=== PATIENT | female | born 1975 | race Two or more races ===

== ENCOUNTER 2016-10-08 15:35 | Emergency (ER) | payer BC ==
[2016-10-08 16:00] VITALS: BP 112/82; TEMP 98.7; BMI 28.2
--- NOTE | 2016-10-08 16:33 | PDOC ---
History of Present Illness - General Chief Complaint: Pain Stated Complaint: CHEST PAIN, S/P SURGERY Time Seen by Provider: 10/08/16 16:04 - History of Present Illness Initial Comments: 10/08/16 16:29 41-year-old female with a past medical history of asthma, GERD, gastric sleeve, rheumatoid arthritis, and anemia On 09/29/16, she had an abdominoplasty, liposuction, and bilateral breast lift done at [facility] She states that since the surgery, she's had some chest pain and shortness of breath, and she was seen in the [facility] emergency department on 10/01/16, and had a CTA of the chest which was reportedly negative. She was going to be admitted to [facility], but was unhappy with her care on that day, and signed out AMA She states that since the surgery she is having constant chest pain, going down her left arm, shortness of breath, palpitations, "racing heart", and dyspnea on exertion She denies any leg swelling, or fevers and chills She does admit to a cough with some occasional clear sputum She is also complaining of some difficulty swallowing since the surgery, with painful swallowing She states that she is only able to swallow liquids, and unable to swallow solids She states that she is not eating or drinking Patient was seen in the emergency department here on 10/01/16, after signing out AGAINST MEDICAL ADVICE from [facility], and again on 10/03-to10/04/16, when her lab work showed progressive anemia, most recently with a hemoglobin of 8, and an elevated d-dimer On 10/04/16, here, she got a CTA of the chest (her second CTA of the chest since the surgery, the first at [facility]) CTA of the chest done on 10/04/16 Impression "There is no gross evidence of pulmonary embolus in the main pulmonary artery and its proximal branches bilaterally There is bi-basilar consolidation/atelectasis in the dependent portion of the lower lobes, rule out pneumonia Status post gastric sleeve surgery with a small to moderate size hiatal hernia present, and suggestion of thickening of the mid and distal esophageal wall" Patient was discharged home from the emergency department after feeling better after IV hydration She returns today with continuation and worsening of her symptoms She denies any fevers or chills, her surgical drains were removed, and she denies any discharge or drainage from the surgical sites She denies any calf pain or leg swelling She denies any other complaints at this time, and the remainder of the review of systems is negative Past History - Past Medical History Allergies/Adverse Reactions: Allergies Allergy/AdvReac Type Severity Reaction Status Date / Time shellfish derived Allergy Intermediate Verified 10/03/16 23:21 bupropion HCl Allergy Verified 10/03/16 23:21 [From Wellbutrin] Home Medications: Ambulatory Orders Zolpidem Tartrate [Ambien Cr] 12.5 mg PO HS 04/01/16 Sulfasalazine 100 mg PO BID 07/08/16 Cephalexin [Keflex] 500 mg PO Q6H 10/01/16 Ferrous Sulfate 325 mg PO BID 10/01/16 Hydrocodone 10-325 1 tab PO TID PRN 10/01/16 Omeprazole 20 mg PO DAILY 10/08/16 Omeprazole 20 mg PO DAILY #30 capsule. 10/08/16 Anemia: No Asthma: Yes Cancer: No Cardiac Disorders: No CVA: No COPD: No CHF: No Dementia: No Diabetes: No GI Disorders: Yes (GERD) Disorders: No HTN: No Hypercholesterolemia: No Liver Disease: No Psychiatric Problems: Yes (DEPRESSION) Seizures: No Thyroid Disease: No - Surgical History Abdominal Surgery: Yes (VERTICAL SLEEVE GASTRECTOMY, ABDOMINOPLASTY, LIPOSUCTION ) Appendectomy: No Cardiac Surgery: No Cholecystectomy: No Lung Surgery: No Neurologic Surgery: No Orthopedic Surgery: Yes - Psycho/Social/Smoking Cessation Hx Anxiety: No Suicidal Ideation: No Smoking Status: No Smoking History: Current some day smoker Years of Tobacco Use: 24 Have you smoked in the past 12 months: No Number of Cigarettes Smoked Daily: 0 Information on smoking cessation initiated: Yes 'Breaking Loose' booklet given: 07/16/16 Hx Alcohol Use: No Drug/Substance Use Hx: No Substance Use Type: None Review of Systems - Review of Systems Able to Perform ROS?: Yes Comments:: 10/08/16 16:41 12 point review of systems is as per history of present illness and otherwise negative *Physical Exam - Vital Signs Last Vital Signs Temp Pulse Resp BP Pulse Ox 98.7 F 120 H 20 112/82 100 10/08/16 15:37 10/08/16 15:37 10/08/16 15:37 10/08/16 15:37 10/08/16 15:37 - Physical Exam Comments: 10/08/16 16:41 Physical exam Last Vital Signs Temp Pulse Resp BP Pulse Ox 98.7 F 120 H 20 112/82 100 10/08/16 15:37 10/08/16 15:37 10/08/16 15:37 10/08/16 15:37 10/08/16 15:37 GENERAL: The patient is awake, alert, and fully oriented, and in no apparent distress. HEAD: Normal with no signs of trauma. EYES: Sclera anicteric ENT: Mucous membranes slightly dry NECK: Normal range of motion, supple over 11 segs RBC were negative and reactive LUNGS: Breath sounds equal, clear to auscultation bilaterally. No wheezes, and no crackles. HEART: Regular rate and rhythm, normal S1 and S2 without murmur, rub or gallop. ABDOMEN: Soft, nontender, normoactive bowel sounds. No guarding, no rebound. No masses appreciated. SKIN: The surgical sites on the breast bilaterally and abdominal wall or clean and healing There is no evidence of infection or drainage of the surgical sites EXTREMITIES: Normal range of motion, no edema. No clubbing or cyanosis. No cords, erythema, or tenderness. There is no calf tenderness or swelling, and there is no thigh tenderness or swelling NEUROLOGICAL: Cranial nerves II through XII grossly intact. Normal speech, normal gait. PSYCH: Normal mood, normal affect. SKIN: Warm, Dry, ED Treatment Course - LABORATORY CBC & Chemistry Diagram: 10/08/16 16:50 10/08/16 16:50 - RADIOLOGY Radiology Studies Ordered: Category Date Time Status CHEST PA & LAT [RAD] Stat Radiology 10/08/16 16:26 Ordered Medical Decision Making - Medical Decision Making 10/08/16 16:43 Patient with a complex past medical history as noted, has had this symptom complex since her surgery on 09/29/16 She has had 2 CTAs, one at [facility], and one here, which have been negative for pulmonary emboli, but positive for possible pneumonia versus atelectasis and positive for esophageal thickening She was also noted to be increasingly anemic over her past 2 visits here, with the most recent hemoglobin being 8 10/08/16 18:39 Chest x-ray Linear densities in the mid left lung pham are noted which appear improved when compared to the prior study, consistent with improving atelectatic changes There are also improving atelectatic changes of the lung bases with improved aeration No focal consolidation is seen The cardiomediastinal windows are within normal limits CBC is consistent with improved H&H, with a hemoglobin of 10.7 and a hematocrit of 33 at this time The CMP is significant for a potassium of 5.7 on a hemolyzed specimen First set of cardiac enzymes negative Laboratory Results - last 24 hr 10/08/16 10/08/16 10/08/16 16:50 16:50 16:50 WBC 8.6 RBC 3.37 L Hgb 10.7 D Hct 33.3 D MCV 99.0 H MCHC 32.0 RDW 14.7 D Plt Count 504 H D MPV 7.1 L D Sodium 131 L Potassium 5.7 H D Chloride 99 Carbon Dioxide 24 Anion Gap 8 BUN 14 D Creatinine 0.9 D Creat Clearance w eGFR > 60 Random Glucose 125 H Calcium 8.5 Magnesium 2.3 Total Bilirubin 1.9 H D AST 79 H D ALT 26 D Alkaline Phosphatase 64 Creatine Kinase 58 Troponin I < 0.03 L Total Protein 6.4 Albumin 3.3 L 10/08/16 18:56 We'll try 1 L of normal saline, and IV Protonix Patient's chest x-ray and lab work or improved from her prior 10/08/16 19:15 Improving labwork, improving x-rays (K 5.7 - lab reported hemolyzed specimen) Will give patient 1 L of IV normal saline, and 40 mg of Protonix IV, and reevaluate SIGN OUT Case discussed in detail with oncoming Emergency Physician including history, physical exam and ancillary studies. Oncoming Emergency Physician has assumed care for the patient and will complete the evaluation and treatment. Transfer of care to Dr. Madsen at 7:15 awaiting above *DC/Admit/Observation/Transfer Diagnosis at time of Disposition: GERD with esophagitis - Discharge Dispostion Disposition: HOME Condition at time of disposition: Good - Prescriptions Prescriptions: Omeprazole 20 mg PO DAILY #30 capsule.dr - Referrals Referrals: Marvin Villa [Primary Care Provider] - - Patient Instructions Additional Instructions: Take omeprazole 1 tablet a day for the epigastric discomfort and difficulty swallowing. Your difficulty swallowing is most likely irritation of your esophagus secondary to your reflex and the abdominal and breast binders. Continue to take your iron as prescribed it may make you constipated so if you are not having normal bowel movements at some fiber or a [id number] laxative which is milk of magnesia. It is important that you follow-up with your primary care doctor. Return to the emergency department immediately with ANY new, persistent or worsening symptoms. Continue any medications as previously prescribed by your physician. You should follow up with your primary doctor as soon as possible regarding today's emergency department visit. . Please make sure your doctor reviews the results of your emergency evaluation. Thank you for coming to the Emergency Department today for your care. It was a pleasure to see you today. Please note that your evaluation is INCOMPLETE until you follow-up with your doctor.
[2016-10-08 17:13] LABS: MCH 31.7 pg (25.7-33.7); MEAN PLT VOLUME 7.1 fl (7.5-11.1); PLATELET COUNT 504 K/MM3 (134-434); RDW 14.7 % (11.6-15.6); WHITE BLOOD COUNT 8.6 K/mm3 (4.0-10.0)
[2016-10-08 17:27] LABS: ALBUMIN 3.3 g/dl (3.5-5.0); ALK PHOS 64 U/L (32-92); ANION GAP 8 (8-16); BILIRUBIN,TOTAL 1.9 mg/dl (0.2-1.0); CALCIUM 8.5 mg/dl (8.4-10.2); CO2 24 mmol/L (22-28); CREATININE 0.9 mg/dl (0.6-1.3); GLUCOSE,RANDOM 125 mg/dl (74-106); MAGNESIUM 2.3 mg/dL (1.8-2.4); SGOT/AST 79 U/L (10-42); SGPT/ALT 26 U/L (10-40); TOT PROT 6.4 g/dl (6.4-8.3)
[2016-10-08 17:29] LABS: CPK(DFH) 58 IU/L (26-140)
[2016-10-08 17:38] LABS: TROPONIN I (DFP) < 0.03 ng/ml (0.03-0.50)
[2016-10-08] MEDS ORDERED: PANTOPRAZOLE SODIUM 40 MG VIAL ONE (18:55)
[2016-10-08] MEDS ORDERED: PANTOPRAZOLE SODIUM 40 MG in SODIUM CHLORIDE 100 ML IVPB ONE (18:55)
[2016-10-08] MEDS ORDERED: SODIUM CHLORIDE 1,000 ML IV SCH (19:00)
--- NOTE | 2016-10-08 19:43 | PDOC ---
*Physical Exam - Vital Signs Last Vital Signs Temp Pulse Resp BP Pulse Ox 98.7 F 120 H 20 112/82 100 10/08/16 15:37 10/08/16 15:37 10/08/16 15:37 10/08/16 15:37 10/08/16 15:37 ED Treatment Course - LABORATORY CBC & Chemistry Diagram: 10/08/16 16:50 10/08/16 16:50 - ADDITIONAL ORDERS Additional order review: Laboratory Results 10/08/16 10/08/16 16:50 16:50 Sodium 131 L Potassium 5.7 H D Chloride 99 Carbon Dioxide 24 Anion Gap 8 BUN 14 D Creatinine 0.9 D Creat Clearance w eGFR > 60 Random Glucose 125 H Calcium 8.5 Magnesium 2.3 Total Bilirubin 1.9 H D AST 79 H D ALT 26 D Alkaline Phosphatase 64 Creatine Kinase 58 Troponin I < 0.03 L Total Protein 6.4 Albumin 3.3 L 10/08/16 16:50 RBC 3.37 L MCV 99.0 H MCHC 32.0 RDW 14.7 D MPV 7.1 L D - Medications Given in the ED: ED Medications Discontinued Medications Generic Name Dose Route Start Last Admin Trade Name Freq PRN Reason Stop Dose Admin Pantoprazole Sodium 40 mg/ 100 mls @ 200 mls/hr 10/08/16 18:55 10/08/16 19:00 Sodium Chloride IVPB 10/08/16 19:24 200 mls/hr ONCE ONE Administration Progress Note - Progress Note Progress Note: This is a 41-year-old female who is status post abdominoplasty as well as bilateral breast surgery. Care of this patient was transferred to [place] from Dr. Fernandes at 1900 hrs. Patient has had several visits for shortness of breath and chest pain. Patient has had 2 CT angios of the chest to rule out PE both of which were negative for PE. The last one was approximately 4 days ago. Patient had a chest x-ray that shows atelectasis and questionable infiltrate however repeat chest x-ray today is improved and patient does not have a elevated white count left shift or fever. Patient's shortness of breath is most likely secondary to discomfort as a result of her surgery and also her breast and abdominal binder. Patient is being hydrated and given Protonix for her difficulty swallowing. Patient does have a history of gastritis and gastroesophageal reflex with the additional pressure on the abdomen and breasts most likely she is getting some reflux esophagitis as a result. Post IV hydration patient will be discharged with omeprazole prescription and follow-up with her primary care doctor. *DC/Admit/Observation/Transfer Diagnosis at time of Disposition: GERD with esophagitis - Discharge Dispostion Disposition: HOME Condition at time of disposition: Good Admit: No - Patient Instructions Additional Instructions: Take omeprazole 1 tablet a day for the epigastric discomfort and difficulty swallowing. Your difficulty swallowing is most likely irritation of your esophagus secondary to your reflex and the abdominal and breast binders. Continue to take your iron as prescribed it may make you constipated so if you are not having normal bowel movements at some fiber or a [id number] laxative which is milk of magnesia. It is important that you follow-up with your primary care doctor. Return to the emergency department immediately with ANY new, persistent or worsening symptoms. Continue any medications as previously prescribed by your physician. You should follow up with your primary doctor as soon as possible regarding today's emergency department visit. . Please make sure your doctor reviews the results of your emergency evaluation. Thank you for coming to the Emergency Department today for your care. It was a pleasure to see you today. Please note that your evaluation is INCOMPLETE until you follow-up with your doctor.
[2016-10-08 19:53] VITALS: PULSE 98
--- NOTE | 2016-10-09 12:42 | EKG ---
Test Reason : Blood Pressure : / mmHG Vent. Rate : 114 BPM Atrial Rate : 114 BPM P-R Int : 130 ms QRS Dur : 084 ms QT Int : 352 ms P-R-T Axes : 062 006 041 degrees QTc Int : 485 ms SINUS TACHYCARDIA NONSPECIFIC ST ABNORMALITY WHEN COMPARED WITH ECG OF 04-OCT-2016 01:21, NO SIGNIFICANT CHANGE WAS FOUND Confirmed by ELLA SANTACRUZ MD ([id number]) on 10/09/2016 12:41:57 PM Referred By: DR CRAWFORD Confirmed By:ELLA SANTACRUZ MD
== END 2016-10-08 20:03 | disposition home or self-care (01) ==
LOC: FER 15:35
PROC: 3E033GC Introduction of Other Therapeutic Substance into Peripheral Vein, Percutaneous Approach (ICD-10-PCS; principal; 2016-10-08)
DX: K21.0 Gastro-esophageal reflux disease with esophagitis (principal); Z98.84 Bariatric surgery status; Z98.890 Other specified postprocedural states; F17.210 Nicotine dependence, cigarettes, uncomplicated; J45.909 Unspecified asthma, uncomplicated; F32.9 Major depressive disorder, single episode, unspecified
CPT/HCPCS: 36415; 71020-TC; 80053; 82550; 83735; 84484; 85027; 93005; 99283-25

== ENCOUNTER 2017-03-10 18:12 | Emergency (ER) | payer BC, OTHER ==
[2017-03-10] MEDS ORDERED: PANTOPRAZOLE 40 MG TABLET (FP) PO ONE (18:30)
[2017-03-10] MEDS ORDERED: HYOSCYAMINE SULFATE 0.125 MG *ODT PO ONE ×2 (18:31→19:05)
[2017-03-10 18:32] VITALS: BP 128/93; TEMP 98.3; BMI 30.7
[2017-03-10 18:44] VITALS: PULSE 100
--- NOTE | 2017-03-10 18:45 | PDOC ---
History of Present Illness <Willy Caceres - Last Filed: 03/10/17 18:40> - History of Present Illness Initial Comments: 03/10/17 18:59 Patient is a 42 year old female with significant medical hx of asthma, HLD, and GERD who is presenting to the ED with worsening acid reflux since today. The patient states shes had acid reflux for the past 18 years but it has been worsening today. She complains of epigastric discomfort that she describes as "burning" and sputum production whenever she belches. The patient also reports two episodes of nausea and vomiting today. Patient reports taking pepcid, mylanta and omeprazole today for her symptoms which have not provided relief. The patient states that she is prescribed omeprazole but does not take it as directed; she mostly takes it whenever she feels symptomatic. Surgical Hx: Vertical sleeve gastrectomy, tummy tuck, breast lift, two right knee surgeries, two left knee surgeries, left shoulder surgery, cyst removal Social Hx: Occasional alcohol use, denies tobacco use Allergies: Bupropion HCl, shellfish <Whit Martin - Last Filed: 03/10/17 19:12> - General Chief Complaint: Pain, Acute Stated Complaint: ABDOMINAL PAIN Time Seen by Provider: 03/10/17 18:17 Past History - Past Medical History Anemia: No Asthma: Yes Cancer: No Cardiac Disorders: No CVA: No COPD: No CHF: No Dementia: No Diabetes: No GI Disorders: Yes (GERD) Disorders: No HTN: No Hypercholesterolemia: No Liver Disease: No Psychiatric Problems: Yes (DEPRESSION) Seizures: No Thyroid Disease: No Other medical history: RHEUMATOID ARTHRITIS - Surgical History Abdominal Surgery: Yes (VERTICAL SLEEVE GASTRECTOMY, ABDOMINOPLASTY, LIPOSUCTION ) Appendectomy: No Cardiac Surgery: No Cholecystectomy: No Lung Surgery: No Neurologic Surgery: No Orthopedic Surgery: Yes - Psycho/Social/Smoking Cessation Hx Anxiety: No Suicidal Ideation: No Smoking Status: No Smoking History: Former smoker Years of Tobacco Use: 24 Have you smoked in the past 12 months: No Number of Cigarettes Smoked Daily: 0 Information on smoking cessation initiated: No 'Breaking Loose' booklet given: 07/16/16 Hx Alcohol Use: Yes Drug/Substance Use Hx: No Substance Use Type: None, Alcohol <Willy Caceres - Last Filed: 03/10/17 18:40> <Whit Martin - Last Filed: 03/10/17 19:12> - Past Medical History Allergies/Adverse Reactions: Allergies Allergy/AdvReac Type Severity Reaction Status Date / Time shellfish derived Allergy Intermediate Verified 03/10/17 18:14 bupropion HCl Allergy Rash Verified 03/10/17 18:14 [From Wellbutrin] Home Medications: Ambulatory Orders Zolpidem Tartrate [Ambien Cr] 10 mg PO HS 04/01/16 Clonazepam [KlonoPIN] 0.5 mg PO DAILY 03/10/17 Clonidine HCl 0.1 mg PO BID 03/10/17 Hydrocodone/Acetaminophen [Lortab 10-325 mg Tablet] 1 each PO PRN PRN 03/10/17 Pantoprazole Sodium [Protonix] 40 mg PO DAILY #20 tablet. 03/10/17 Sertraline HCl [Zoloft] 100 mg PO DAILY 03/10/17 Review of Systems - Review of Systems Comments:: 03/10/17 19:08 CONSTITUTIONAL: Absent: fever, chills, diaphoresis, generalized weakness, malaise, loss of appetite HEENT: Absent: rhinorrhea, nasal congestion, throat pain, throat swelling, difficulty swallowing, mouth swelling, ear pain, eye pain, visual changes CARDIOVASCULAR: Absent: chest pain, syncope, palpitations, irregular heart rate, lightheadedness , peripheral edema RESPIRATORY: Absent: cough, shortness of breath, dyspnea with exertion, orthopnea, wheezing, stridor, hemoptysis GASTROINTESTINAL: Present: epigastric discomfort, nausea, vomiting Absent: abdominal distension, diarrhea, constipation, melena, hematochezia GENITOURINARY: Absent: dysuria, frequency, urgency, hesitancy, hematuria, flank pain, genital pain MUSCULOSKELETAL: Absent: myalgia, arthralgia, joint swelling SKIN: Absent: rash, itching, pallor HEMATOLOGIC/IMMUNOLOGIC: Absent: easy bleeding, easy bruising, lymphadenopathy, frequent infections ENDOCRINE: Absent: unexplained weight gain, unexplained weight loss, heat intolerance, cold intolerance NEUROLOGIC: Absent: headache, focal weakness or paresthesia, dizziness, unsteady gait, seizure, mental status changes, bladder or bowel incontinence. PSYCHIATRIC: Absent: anxiety, depression, suicidal or homicidal ideation, hallucinations <Whit Martin - Last Filed: 03/10/17 19:12> *Physical Exam - Vital Signs Last Vital Signs Temp Pulse Resp BP Pulse Ox 98.3 F 117 H 20 128/93 100 03/10/17 18:13 03/10/17 18:13 03/10/17 18:13 03/10/17 18:13 03/10/17 18:13 <NickiWilly Baljinder - Last Filed: 03/10/17 18:40> - Vital Signs Last Vital Signs Temp Pulse Resp BP Pulse Ox 98.3 F 100 H 20 128/93 100 03/10/17 18:13 03/10/17 18:44 03/10/17 18:13 03/10/17 18:13 03/10/17 18:13 - Physical Exam Comments: 03/10/17 19:09 GENERAL: Well developed, well nourished. Awake and alert. No acute distress. HEENT: Normocephalic, atraumatic. PERRLA, EOMI. No conjunctival pallor. Sclera are non- icteric. Moist mucous membranes. Oropharynx is clear. NECK: Supple. Full ROM. No JVD. Carotid pulses 2+ and symmetric, without bruits. No thyromegaly. No lymphadenopathy. CARDIOVASCULAR: Regular rate and rhythm. No murmurs, rubs, or gallops. Distal pulses are 2+ and symmetric. PULMONARY: No evidence of respiratory distress. Lungs clear to auscultation bilaterally. No wheezing, rales or rhonchi. ABDOMINAL: Well healed midline scar from prior surgery. Soft. Mild tenderness to the epigastrum to deep palpation without any guarding or rebound. No lower quadrant tenderness. Non-distended. No organomegaly. Normoactive bowel sounds. MUSCULOSKELETAL: Normal range of motion at all joints. No bony deformities or tenderness. No CVA tenderness. EXTREMITIES: No cyanosis. No clubbing. No edema. No calf tenderness. SKIN: No pallor. Warm and dry. Normal capillary refill. No rashes. No jaundice. NEUROLOGICAL: Alert, awake, appropriate. Cranial nerves 2-12 intact. Normal speech. Gait is normal without ataxia. PSYCHIATRIC: Cooperative. Good eye contact. Appropriate mood and affect. <Whit Martin - Last Filed: 03/10/17 19:12> ED Treatment Course - Medications Given in the ED: ED Medications Discontinued Medications Generic Name Dose Route Start Last Admin Trade Name Santa PRN Reason Stop Dose Admin Hyoscyamine Sulfate 0.125 mg 03/10/17 18:31 03/10/17 18:49 Levsin Odt - PO 03/10/17 18:32 0.125 mg ONCE ONE Administration Pantoprazole Sodium 40 mg 03/10/17 18:30 03/10/17 18:49 Protonix - PO 03/10/17 18:31 40 mg ONCE ONE Administration <Whit Martin - Last Filed: 03/10/17 19:12> *DC/Admit/Observation/Transfer - Discharge Dispostion Admit: No <Willy Caceres - Last Filed: 03/10/17 18:40> - Attestations Scribe Attestion: 03/10/17 19:12 Documentation prepared by Whit Martin, acting as medical device engineer for Willy Suggs MD <Whit Martin - Last Filed: 03/10/17 19:12> Diagnosis at time of Disposition: GERD with esophagitis - Discharge Dispostion Condition at time of disposition: Stable - Prescriptions Prescriptions: Pantoprazole Sodium [Protonix] 40 mg PO DAILY #20 tablet.dr - Referrals Referrals: Gab Valdes MD [Staff Physician] - - Patient Instructions Printed Discharge Instructions: DI for Gastroesophageal Reflux Disease (GERD) - Post Discharge Activity Work/School Note: Back to Work
[2017-03-10] MEDS ORDERED: PANTOPRAZOLE 40 MG TABLET (FP) ONE (18:46)
[2017-03-10] MEDS ORDERED: HYOSCYAMINE SULFATE 0.125 MG *ODT ONE (18:47)
[2017-03-10] MEDS ORDERED: MAG HYDROX/AL HYDROX/SIMETH 30 ML UNIT-DOSE CUP PO ONE (19:05)
[2017-03-10] MEDS ORDERED: MAG HYDROX/AL HYDROX/SIMETH 30 ML UNIT-DOSE CUP ONE (19:07)
== END 2017-03-10 19:27 | disposition home or self-care (01) ==
LOC: FER 18:12
DX: K21.0 Gastro-esophageal reflux disease with esophagitis (principal); F32.9 Major depressive disorder, single episode, unspecified; M06.9 Rheumatoid arthritis, unspecified; Z87.891 Personal history of nicotine dependence
CPT/HCPCS: 99282-25

== ENCOUNTER 2017-04-10 15:57 | Emergency (ER) | payer BC ==
[2017-04-10 16:15] VITALS: BMI 31.6
--- NOTE | 2017-04-10 17:21 | PDOC ---
History of Present Illness - General History Source: Patient, Old Records Exam Limitations: No Limitations - History of Present Illness Initial Comments: 04/10/17 17:29 The patient is a 42 year old female with a past medical history of asthma, GERD , obesity s/p gastric sleeve, depression, and rheumatoid arthritis who presents to the Emergency Department today s/p multiple episodes of loss of consciousness for one week. The patient states that over that past week she has passed out 7 times. She notes that most of her episodes have occurred while walking around her house and when getting up after sitting for an extended period of time. She endorses severe dizzy spells before losing consciousness. She states that in between her episodes she is at her baseline. She endorses diarrhea and vomiting but did not specify frequencies. Patient saw Dr. Rankin of [facility] on , all tests were negative for findings. She reports non-compliance with some of her medications. <Bill Peterson - Last Filed: 04/10/17 18:14> <Rohan Lozoya - Last Filed: 04/10/17 18:43> - General Chief Complaint: Syncope/Near Syncope Stated Complaint: PT STATES SHE PASSED OUT 7 TIMES IN 5 DAYS Time Seen by Provider: 04/10/17 17:08 Past History <Bill Peterson - Last Filed: 04/10/17 18:14> - Past Medical History Anemia: No Asthma: Yes Cancer: No Cardiac Disorders: No CVA: No COPD: No CHF: No Dementia: No Diabetes: No GI Disorders: Yes (GERD) Disorders: No HTN: No Hypercholesterolemia: No Liver Disease: No Psychiatric Problems: Yes (DEPRESSION) Seizures: No Thyroid Disease: No - Surgical History Abdominal Surgery: Yes (VERTICAL SLEEVE GASTRECTOMY, ABDOMINOPLASTY, LIPOSUCTION ) Appendectomy: No Cardiac Surgery: No Cholecystectomy: No Lung Surgery: No Neurologic Surgery: No Orthopedic Surgery: Yes - Psycho/Social/Smoking Cessation Hx Anxiety: No Suicidal Ideation: No Smoking Status: No Smoking History: Former smoker Years of Tobacco Use: 24 Have you smoked in the past 12 months: No Number of Cigarettes Smoked Daily: 0 Information on smoking cessation initiated: No 'Breaking Loose' booklet given: 07/16/16 Hx Alcohol Use: No Drug/Substance Use Hx: No Substance Use Type: None, Alcohol <Rohan Lozoya - Last Filed: 04/10/17 18:43> - Past Medical History Allergies/Adverse Reactions: Allergies Allergy/AdvReac Type Severity Reaction Status Date / Time shellfish derived Allergy Intermediate Verified 04/10/17 16:00 bupropion HCl Allergy Rash Verified 04/10/17 16:00 [From Wellbutrin] Home Medications: Ambulatory Orders Zolpidem Tartrate [Ambien Cr] 10 mg PO HS 04/01/16 Clonazepam [KlonoPIN] 0.5 mg PO DAILY 03/10/17 Clonidine HCl 0.1 mg PO BID 03/10/17 Sertraline HCl [Zoloft] 100 mg PO BID 03/10/17 Review of Systems - Review of Systems Able to Perform ROS?: Yes Comments:: 04/10/17 17:29 CONSTITUTIONAL: Absent: Fever, Chills, Diaphoresis, Generalized Weakness, Malaise, Loss of Appetite HEENT: Absent: Rhinorrhea, Nasal Congestion, Throat Pain, Throat Swelling, Difficulty Swallowing, Mouth Swelling, Ear Pain, Eye Pain, Visual Changes CARDIOVASCULAR: Absent: Chest Pain, Syncope, Palpitations, Irregular Heart Rate, Lightheadedness , Peripheral Edema RESPIRATORY: Absent: Cough, Shortness of Breath, SOB with Exertion, Orthopnea, Wheezing, Stridor, Hemoptysis GASTROINTESTINAL: Present: Vomiting, Diarrhea Absent: Abdominal pain, Abdominal Distension, Nausea, Constipation, Melena, Hematochezia GENITOURINARY: Absent: Dysuria, Frequency, Urgency, Hesitancy, Flank Pain, Genital Pain MUSCULOSKELETAL: Absent: Myalgia, Arthralgia, Joint Swelling, Back pain, Neck Pain SKIN: Present: Abcess to buttox and right groin. Absent: Rash, Itching, Pallor HEMATOLOGIC/IMMUNOLOGIC: Absent: Easy Bleeding, Easy Bruising, Lymphadenopathy, Frequent infections ENDOCRINE: Absent: Unexplained Weight Gain, Unexplained Weight Loss, Heat Intolerance, Cold Intolerance NEUROLOGIC: Present: Loss of consciousness. Absent: Headache, Focal Weakness, Paresthesias, Vertigo, Lightheadedness, Unsteady Gait, Seizure, Mental Status Changes, Incontinence PSYCHIATRIC: Absent: Anxiety, Depression <Bill Peterson - Last Filed: 04/10/17 18:14> *Physical Exam - Vital Signs Last Vital Signs Temp Pulse Resp BP Pulse Ox 99.3 F 96 H 16 92/61 100 04/10/17 15:58 04/10/17 15:58 04/10/17 15:58 04/10/17 15:58 04/10/17 15:58 - Physical Exam Comments: 04/10/17 17:29 GENERAL: The patient is awake, alert, and fully oriented, in no acute distress. HEAD: Normal with no signs of trauma. EYES: Pupils equal, round and reactive to light, extraocular movements intact, sclera anicteric, conjunctiva clear. ENT: Ears normal, nares patent, oropharynx clear without exudates. Moist mucous membranes. NECK: Normal range of motion, supple without lymphadenopathy, JVD, or masses. LUNGS: Breath sounds equal, clear to auscultation bilaterally. No wheezes, and no crackles. HEART: Regular rate and rhythm, normal S1 and S2 without murmur, rub or gallop. ABDOMEN: Soft, nontender, normoactive bowel sounds. No guarding, no rebound. No masses. EXTREMITIES: Normal range of motion, no edema. No clubbing or cyanosis. No cords , erythema, or tenderness. PSYCH: Normal mood, normal affect. SKIN: Warm, Dry, normal turgor, no rashes or lesions noted. NEUROLOGICAL: Mental status: The patient is oriented x3. Cranial nerves: Cranial nerves II through XII are intact Motor: The upper extremities are 5 over 5 in all muscle groups. The lower extremities are 5 over 5 in all muscle groups. Sensation: Sensation is intact to light touch throughout. Cerebellar: Vcfzgz-olqzbh-igok is normal in both upper extremities. Heel-knee- harrington is normal in both lower extremities. Reflexes: 2+ and symmetric in the upper and lower extremities. Gait: (+) Normal. Heel and toe walking are normal. Tandem gait is slightly unsteady <Bill Peterson - Last Filed: 04/10/17 18:14> - Vital Signs Last Vital Signs Temp Pulse Resp BP Pulse Ox 99.3 F 96 H 16 92/61 100 04/10/17 15:58 04/10/17 15:58 04/10/17 15:58 04/10/17 15:58 04/10/17 15:58 <Rohan Lozoya - Last Filed: 04/10/17 18:43> Heart Score/ECG Review - ST and T Comment:: 04/10/17 17:58 Twelve-lead EKG shows normal sinus rhythm at 71 bpm. The axis is normal. The intervals are normal. There is no acute ST elevation or depression. There are no abnormal Q waves. Impression: Normal 12-lead EKG. <Rohan Lozoya - Last Filed: 04/10/17 18:43> ED Treatment Course - LABORATORY CBC & Chemistry Diagram: 04/10/17 17:47 04/10/17 17:47 - RADIOLOGY Radiograph Interpretation: 04/10/17 18:14 EXAM: CT head without contrast IMAGES: 69 DATE OF SERVICE: 2017-04-10 17:15:08.0 HISTORY:Syncope and imbalance for one week. COMPARISON: None. FINDINGS: 1. There is no evidence of an acute intracranial process, intracranial hemorrhage or mass effect. 2. The ventricles are normal size. 3. The visualized portions of the orbits, paranasal and mastoid sinuses are unremarkable. 4. No evidence of fracture. THIS DOCUMENT HAS BEEN ELECTRONICALLY SIGNED Mary Beard MD 04/10/2017 18:00 EST <Bill Peterson - Last Filed: 04/10/17 18:14> - LABORATORY CBC & Chemistry Diagram: 04/10/17 17:47 04/10/17 17:47 - RADIOLOGY Radiology Studies Ordered: Category Date Time Status HEAD CT WITHOUT CONTRAST [CT] Stat CT Scan 04/10/17 17:20 Ordered <Rohan Lozoya - Last Filed: 04/10/17 18:43> Medical Decision Making - Medical Decision Making 04/10/17 18:39 Patient with a history of chronic pain and psychiatric illness presents complaining of feeling lightheaded frequently over the last week. She states she feels dizzy and then his falling down. There have been no injuries. She states it usually happens when she gets up. There is no chest pain, shortness of breath, palpitations, seizures, or other specific symptoms. On examination, the vital signs are normal. The cardiac, pulmonary, abdominal, and neurological exam, in detail is all normal. The patient has a slightly unsteady tandem gait, however she takes lots of medications including benzodiazepines. Her other neurological testing is all normal. Laboratory workup is unremarkable. Patient is homosexual and does not have relations with man, denies any chance of . Her head CT scan is normal. Her 12-lead EKG is normal. Impression: Nonspecific dizziness and imbalance. Negative workup. Patient advised to follow-up with her primary care physician. <Rohan Lozoya - Last Filed: 04/10/17 18:43> *DC/Admit/Observation/Transfer - Attestations Scribe Attestion: 04/10/17 17:30 Documentation prepared by Bill Peterson, acting as medical referral coordinator for Rohan Lozoya MD. <Bill Peterson - Last Filed: 04/10/17 18:14> - Discharge Dispostion Admit: No <Rohan Lozoya - Last Filed: 04/10/17 18:43> Diagnosis at time of Disposition: Dizziness - Discharge Dispostion Disposition: HOME Condition at time of disposition: Stable - Patient Instructions Printed Discharge Instructions: DI for Syncope in Adults (Fainting) Additional Instructions: Today you were evaluated for dizziness and falling. Examination was normal. The CT scan of the head was normal. The EKG and blood tests were also normal. No specific cause for the dizziness was found. Follow-up with your primary care physician. Eat a well-balanced diet. Exercise to help you improve your balance. Return to the emergency department for any severe or progressive symptoms.
[2017-04-10 18:12] LABS: BASOPHIL 2.6 % (0-2.0); MCH 31.6 pg (25.7-33.7); MCHC 33.2 g/dl (32.0-36.0); MEAN CELL VOLUME 95.3 fl (80-96); MEAN PLT VOLUME 8.6 fl (7.5-11.1); NEUTROPHILS 58.9 % (42.8-82.8); PLATELET COUNT 349 K/MM3 (134-434); RDW 13.7 % (11.6-15.6); WHITE BLOOD COUNT 5.8 K/mm3 (4.0-10.8)
[2017-04-10 18:17] LABS: ALBUMIN 3.5 g/dl (3.5-5.0); ALK PHOS 64 U/L (32-92); ANION GAP 5 (8-16); CALCIUM 9.5 mg/dl (8.4-10.2); CO2 26 mmol/L (22-28); CPK(DFH) 36 IU/L (26-140); CREATININE 1.1 mg/dl (0.6-1.3); GLUCOSE,RANDOM 104 mg/dl (74-106); SGOT/AST 17 U/L (10-42); SGPT/ALT 15 U/L (10-40); TOT PROT 7.4 g/dl (6.4-8.3)
[2017-04-10 18:28] LABS: BILIRUBIN,TOTAL < 0.3 mg/dl (0.2-1.0)
[2017-04-10 18:35] LABS: TROPONIN I (DFP) < 0.03 ng/ml (0.03-0.50)
[2017-04-10 18:43] VITALS: BP 111/72; PULSE 67; TEMP 98.3
--- NOTE | 2017-04-13 09:25 | EKG ---
Test Reason : Blood Pressure : / mmHG Vent. Rate : 071 BPM Atrial Rate : 071 BPM P-R Int : 144 ms QRS Dur : 084 ms QT Int : 398 ms P-R-T Axes : 020 -18 010 degrees QTc Int : 432 ms NORMAL SINUS RHYTHM WHEN COMPARED WITH ECG OF 08-OCT-2016 16:29, VENT. RATE HAS DECREASED BY 43 BPM Confirmed by MD ALMARAZ MARJORY ([id number]) on 04/13/2017 9:24:39 AM Referred By: DR MAY Confirmed By:AMANDA ALMARAZ MD
== END 2017-04-10 18:49 | disposition home or self-care (01) ==
LOC: FER 15:57
DX: R42 Dizziness and giddiness (principal); Z98.84 Bariatric surgery status; J45.909 Unspecified asthma, uncomplicated; K21.9 Gastro-esophageal reflux disease without esophagitis; F32.9 Major depressive disorder, single episode, unspecified; M06.9 Rheumatoid arthritis, unspecified; Z87.891 Personal history of nicotine dependence
CPT/HCPCS: 36415; 70450-TC; 80053; 82550; 84484; 85025; 93005; 99282-25

== ENCOUNTER 2017-04-14 15:55 | Emergency (ER) | payer BC ==
--- NOTE | 2017-04-14 16:41 | PDOC ---
History of Present Illness - General History Source: Patient Exam Limitations: No Limitations - History of Present Illness Initial Comments: 04/14/17 16:41 The patient is a 42 year old female, with a significant past medical history of asthma, GERD, obesity s/p gastric sleeve, depression, and rheumatoid arthritis, who presents to the emergency department with multiple episodes syncopal episode occurring this week. The patient reports having multiple episodes (x11) of falling throughout today, after having increased sensation of dizziness. She notes during these episode injuring her head, chin, and left knee. She reports just after these syncopal falls being able to regain consciousness, but notes the most recent episode she was brought back to consciousness by her partner. She reports feeling dizziness for this past week, that is often made worse when she stands up. The patient reports doubling her zoloft prescription (4 a day 100mg for about 2 weeks) recently secondary to an increase in stress and anxiety. She denies any thought of killer herself or harming herself. She denies ever being admitted for depression. She denies recent fevers, chills, or headache. She denies recent nausea, vomit, diarrhea or constipation. She denies recent chest pain or shortness of breath. Allergies: NKA Past surgical history: None reported. Social history: Nonsmoker. Denies EtOH use and recreational drug use. Primary Care Physician: <Chas Craig - Last Filed: 04/14/17 16:41> <Willy Caceres - Last Filed: 04/14/17 17:50> - General Chief Complaint: Syncope/Near Syncope Stated Complaint: DIZZY,SYNCOPE, DOUBLE DOSE OF ZOLOFT Time Seen by Provider: 04/14/17 15:57 Past History <Chas Craig - Last Filed: 04/14/17 16:41> - Past Medical History Anemia: No Asthma: Yes Cancer: No Cardiac Disorders: No CVA: No COPD: No CHF: No Dementia: No Diabetes: No GI Disorders: Yes (GERD) Disorders: No HTN: No Hypercholesterolemia: No Liver Disease: No Psychiatric Problems: Yes (DEPRESSION) Seizures: No Thyroid Disease: No - Surgical History Abdominal Surgery: Yes (VERTICAL SLEEVE GASTRECTOMY, ABDOMINOPLASTY, LIPOSUCTION ) Appendectomy: No Cardiac Surgery: No Cholecystectomy: No Lung Surgery: No Neurologic Surgery: No Orthopedic Surgery: Yes - Psycho/Social/Smoking Cessation Hx Anxiety: No Suicidal Ideation: No Smoking Status: No Smoking History: Former smoker Years of Tobacco Use: 24 Have you smoked in the past 12 months: No Number of Cigarettes Smoked Daily: 0 'Breaking Loose' booklet given: 07/16/16 Hx Alcohol Use: No Drug/Substance Use Hx: No Substance Use Type: None, Alcohol <Willy Caceres - Last Filed: 04/14/17 17:50> - Past Medical History Allergies/Adverse Reactions: Allergies Allergy/AdvReac Type Severity Reaction Status Date / Time shellfish derived Allergy Intermediate Verified 04/10/17 16:00 bupropion HCl Allergy Rash Verified 04/10/17 16:00 [From Wellbutrin] Home Medications: Ambulatory Orders Zolpidem Tartrate [Ambien Cr] 10 mg PO HS 04/01/16 Clonazepam [KlonoPIN] 0.5 mg PO DAILY 03/10/17 Clonidine HCl 0.1 mg PO BID 03/10/17 Sertraline HCl [Zoloft] 100 mg PO BID 03/10/17 Review of Systems - Review of Systems Able to Perform ROS?: Yes Comments:: 04/14/17 16:41 GENERAL/CONSTITUTIONAL: No fever or chills. No weakness. HEAD, EYES, EARS, NOSE AND THROAT: No change in vision. No ear pain or discharge. No sore throat. CARDIOVASCULAR: No chest pain or shortness of breath. RESPIRATORY: No cough, wheezing, or hemoptysis. GASTROINTESTINAL: No nausea, vomiting, diarrhea or constipation. GENITOURINARY: No dysuria, frequency, or change in urination. MUSCULOSKELETAL: No joint or muscle swelling or pain. No neck or back pain. SKIN: No rash NEUROLOGIC: +syncopal episode. No headache, vertigo, loss of consciousness, or change in strength/sensation. ENDOCRINE: No increased thirst. No abnormal weight change. HEMATOLOGIC/LYMPHATIC: No anemia, easy bleeding, or history of blood clots. ALLERGIC/IMMUNOLOGIC: No hives or skin allergy. PSYCH: +increase in stress/depression. <Chas Craig - Last Filed: 04/14/17 16:41> *Physical Exam - Physical Exam Comments: 04/14/17 16:42 GENERAL: Awake, alert, and fully oriented, in no acute distress HEAD: No signs of trauma. Although the patient has bruises on her head, no bruises appreciated. The neck is non tender non deformed. FROm with no pain. EYES: PERRLA, EOMI, sclera anicteric, conjunctiva clear ENT: Auricles normal inspection, hearing grossly normal, nares patent, oropharynx clear without exudates. Moist mucosa NECK: Normal ROM, supple, no lymphadenopathy, JVD, or masses LUNGS: Breath sounds equal, clear to auscultation bilaterally. No wheezes, and no crackles HEART: Regular rate and rhythm, normal S1 and S2, no murmurs, rubs or gallops ABDOMEN: Soft, nontender, normoactive bowel sounds. No guarding, no rebound. No masses EXTREMITIES: Normal range of motion, no edema. No clubbing or cyanosis. No cords, erythema, or tenderness NEUROLOGICAL: Cranial nerves II through XII grossly intact. Normal speech, normal gait SKIN: Warm, Dry, normal turgor, no rashes or lesions noted. <Chas Craig - Last Filed: 04/14/17 16:41> Medical Decision Making - Medical Decision Making 04/14/17 17:18 Patient had a normal head CT scan and normal EKG on prior visit 04/10/2017. There were no significant lab abnormalities. Today is normal, with a regular rhythm of 70 bpm and a normal neurological exam. She has orthostatic changes in her blood pressure and pulse, but she is not symptomatic now. She admits to doubling her dose of Zoloft to 400 mg a day for the past 2 weeks. She also takes Klonopin, Ambien, and clonidine for her blood pressure. She has been more depressed due to financial hardships, interpersonal relationships with her mother, , and children, knee injury and subsequent disability. She is getting full salary but feels financial pressure because of lack of overtime burning's. She is definitely not suicidal, stating that she thinks it is morally wrong, although she does admit telling other people she feels like killing herself, this is just a way of expressing her frustration. There've been no prior psychiatric hospitalizations and no attempts at harming herself. She has weekly visits with a psychiatric therapist and monthly visits with a psychiatrist for a number of years. 04/14/17 17:47 <Willy Caceres - Last Filed: 04/14/17 17:50> *DC/Admit/Observation/Transfer - Attestations Scribe Attestion: 04/14/17 16:42 Documentation prepared by Chas Craig, acting as director of medical staff services for Willy Suggs MD. <Chas Craig - Last Filed: 04/14/17 16:41> - Discharge Dispostion Admit: No <Willy Caceres - Last Filed: 04/14/17 17:50> Diagnosis at time of Disposition: Orthostatic hypotension - Discharge Dispostion Disposition: HOME Condition at time of disposition: Improved - Patient Instructions Printed Discharge Instructions: DI for Syncope in Adults (Fainting) Additional Instructions: Do not take increased dose of Zoloft. Take only as prescribed. In addition, take Ambien and Klonopin only as directed. Do not take Ambien and Klonopin together. Increase her fluid intake, especially in however, drinking at least 2 quarts of water per day Arise slowly from a lying or sitting position. If you are lying, proceed to a sitting position and remain sitting for at least 2-3 minutes. If you are standing, arise slowly and stand still for several minutes before beginning to walk.
[2017-04-14 17:27] VITALS: BP 103/72; PULSE 68; TEMP 98.1; BMI 29.8
== END 2017-04-14 17:36 | disposition home or self-care (01) ==
LOC: FER 15:55
DX: I95.1 Orthostatic hypotension (principal); F43.9 Reaction to severe stress, unspecified; F32.9 Major depressive disorder, single episode, unspecified
CPT/HCPCS: 99282-25

== ENCOUNTER 2017-05-10 08:24 | Day surgery (SDC) | payer BC ==
[2017-05-05 14:59] VITALS: BMI 29.8
[2017-05-10 09:22] VITALS: TEMP 97.9
[2017-05-10] MEDS ORDERED: PROPOFOL 20 ML ONE (09:40)
[2017-05-10] MEDS ORDERED: LIDOCAINE HCL/PF 2% SDV 5ML VIAL ONE (09:40)
[2017-05-10 12:40] VITALS: BP 101/69; PULSE 91
--- NOTE | 2017-05-13 16:55 | PATH ---
Surgical Pathology Report Patient Name: AIDA STRICKLAND [facility]. Rec. #: [id number] /Age/Gender: 1975 (Age: 42) / F Account: [id number] Location: [facility]-ENDOSCOPY Taken: 05/10/2017 Received: 05/10/2017 Reported: 05/13/2017 Physicians: Gab Valdes M.D. Specimen(s) Received A: BX DUODENUM B: BX ANTRUM C: BX ESOPHAGUS Clinical History GERD Abdominal pain, gastritis, esophagitis Final Diagnosis A. DUODENUM, BIOPSY: DUODENAL MUCOSA WITH NO PATHOLOGIC FINDINGS. B. ANTRUM, BIOPSY: MODERATE CHRONIC GASTRITIS. IMMUNOSTAIN IS NEGATIVE FOR H. PYLORI ORGANISMS. C. 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 HYPERPLASTIC ESOPHAGEAL SQUAMOUS MUCOSA SHOWING FEATURES OF REFLUX ESOPHAGITIS. NEGATIVE FOR DYSPLASIA. (SEE NOTE) Note: PAS stain for fungal organisms is being performed and the results will be reported separately in an addendum. Electronically Signed Val Ortiz M.D. Addendum Reported: 05/14/2017 Addendum Diagnosis PAS stain (performed on esophageal biopsy, C), is negative for fungal organisms. Val Ortiz M.D. Gross Description A. Received in formalin, labeled "duodenum" are 2 villa, irregular portions of soft tissue averaging 0.4 cm. in greatest dimension. The specimens are submitted in toto in one cassette. B. Received in formalin, labeled "antrum" are 2 villa, irregular portions of soft tissue measuring 0.3 and 0.4 cm. in greatest dimension. The specimens are submitted in toto in one cassette. C. Received in formalin, labeled "esophagus" are 3 villa, irregular portions of soft tissue ranging from 0.1-0.2 cm. in greatest dimension. The specimens are submitted in toto in one cassette. 05/12/2017 [facility]05/12/2017
== END 2017-05-10 11:30 | disposition home or self-care (01) ==
LOC: FASU-ENDO 08:24
PROVIDERS: ATTEND Internal Medicine Gastroenterology
PROC: 0DB98ZX Excision of Duodenum, Via Natural or Artificial Opening Endoscopic, Diagnostic (ICD-10-PCS; principal; 2017-05-10 10:21)
PROC: 0DB68ZX Excision of Stomach, Via Natural or Artificial Opening Endoscopic, Diagnostic (ICD-10-PCS; 2017-05-10 10:21)
DX: K29.50 Unspecified chronic gastritis without bleeding (principal); K20.8 Other esophagitis; Z98.84 Bariatric surgery status
CPT/HCPCS: 84703; 88305-TC; 88342-TC

== ENCOUNTER 2017-05-13 20:20 | Emergency (ER) | payer BC ==
--- NOTE | 2017-05-13 20:30 | PDOC ---
History of Present Illness - General History Source: Patient Exam Limitations: No Limitations - History of Present Illness Initial Comments: The patient is a 42 yo F with a PMHx of asthma, GERD, obesity s/p gastric sleeve (2011), depression, and rheumatoid arthritis who presents with chest pain that started yesterday. The patient felt like somebody was sitting on her chest. The patient describes the pain as constant. She also endorses a cough with bloody taste in her mouth that started tonight. The patient states the chest pain is worse with coughing. The patient notes a recent endoscopy on Wednesday secondary to throwing up blood. The patient denies fevers, chills and recent travel. The patient denies taking oral contraceptives. The patient denies leg pain. The patient states her albuterol does not relieve her symptoms. The patient states the pain started when she was lying on her back. The patient had a recent surgery on her L leg in January or February. Family Hx: heart disease, DM, lupus. Patient notes her dad of heart disease at the age of 45. Social Hx: Vapes tobacco, denies illicit drug use, drinks socially <April Hatch - Last Filed: 05/13/17 21:15> - General History Source: Patient, Old Records Exam Limitations: No Limitations <Lupe Amor - Last Filed: 05/13/17 22:34> - General Chief Complaint: Respiratory Stated Complaint: COUGH, CHEST PAIN Time Seen by Provider: 05/13/17 20:29 Past History <April Hatch - Last Filed: 05/13/17 21:15> - Past Medical History Anemia: No Asthma: Yes (USES INHALER,PROAIR,LAST USED 2 WEEKS AGO) Cancer: No Cardiac Disorders: No CVA: No COPD: No CHF: No Dementia: No Diabetes: No GI Disorders: Yes (GERD) Disorders: No HTN: No Hypercholesterolemia: No Liver Disease: No Psychiatric Problems: Yes (DEPRESSION) Seizures: No Thyroid Disease: No - Surgical History Abdominal Surgery: Yes (VERTICAL SLEEVE GASTRECTOMY 2011, ABDOMINOPLASTY/AND REVISION, LIPO X2, LEXIE) Appendectomy: No Cardiac Surgery: No Cholecystectomy: No Lung Surgery: No Neurologic Surgery: No Orthopedic Surgery: Yes - Psycho/Social/Smoking Cessation Hx Anxiety: No Suicidal Ideation: No Smoking Status: No Smoking History: Former smoker Years of Tobacco Use: 24 Have you smoked in the past 12 months: Yes Number of Cigarettes Smoked Daily: 0 Information on smoking cessation initiated: Yes 'Breaking Loose' booklet given: 05/13/17 Hx Alcohol Use: (occasional) Drug/Substance Use Hx: No Substance Use Type: Alcohol Hx Substance Use Treatment: No <Lupe Amor - Last Filed: 05/13/17 22:34> - Past Medical History Allergies/Adverse Reactions: Allergies Allergy/AdvReac Type Severity Reaction Status Date / Time shellfish derived Allergy Intermediate Verified 05/13/17 20:23 bupropion HCl Allergy Rash Verified 05/13/17 20:23 [From Wellbutrin] Home Medications: Ambulatory Orders Omeprazole 40 mg PO DAILY 05/05/17 Albuterol Sulfate [Proair Respiclick] 90 mcg IH PRN PRN 05/10/17 Azithromycin [Zithromax -] 250 mg PO DAILY #4 tab 05/13/17 Fluconazole [Diflucan -] 50 mg PO DAILY #3 tablet 05/13/17 Review of Systems - Review of Systems Able to Perform ROS?: Yes Comments:: CONSTITUTIONAL: Absent: fever, chills, diaphoresis, generalized weakness, malaise, loss of appetite HEENT: Absent: rhinorrhea, nasal congestion, throat pain, throat swelling, difficulty swallowing, mouth swelling, ear pain, eye pain, visual Changes CARDIOVASCULAR: +chest pain Absent: syncope, palpitations, irregular heart rate, lightheadedness, peripheral edema RESPIRATORY: +cough, hemoptysis Absent: shortness of breath, dyspnea with exertion, orthopnea, wheezing, stridor GASTROINTESTINAL: Absent: abdominal pain, abdominal distension, nausea, vomiting, diarrhea, constipation, melena, hematochezia GENITOURINARY: Absent: dysuria, frequency, urgency, hesitancy, hematuria, flank pain, genital pain MUSCULOSKELETAL: Absent: myalgia, arthralgia, joint swelling SKIN: Absent: rash, itching, pallor NEUROLOGIC: Absent: headache, focal weakness or paresthesias, dizziness, unsteady gait, seizure, mental status changes, bladder or bowel incontinence PSYCHIATRIC: Absent: anxiety, depression, suicidal or homicidal ideation, hallucinations. <April Hatch - Last Filed: 05/13/17 21:15> *Physical Exam - Vital Signs Last Vital Signs Temp Pulse Resp BP Pulse Ox 98.7 F 105 H 24 123/84 98 05/13/17 20:20 05/13/17 20:20 05/13/17 20:20 05/13/17 20:20 05/13/17 20:20 - Physical Exam Comments: GENERAL: Well developed, well nourished. Awake and alert. No acute distress. HEENT: Normocephalic, atraumatic. PERRLA, EOMI. No conjunctival pallor. Sclera are non- icteric. Moist mucous membranes. Oropharynx is clear. NECK: Supple. Full ROM. No JVD. Carotid pulses 2+ and symmetric, without bruits. No thyromegaly. No lymphadenopathy. CARDIOVASCULAR: Tachycardia. Regular rhythm. No murmurs, rubs, or gallops. Distal pulses are 2+ and symmetric. PULMONARY: No evidence of respiratory distress. Lungs clear to auscultation bilaterally. No wheezing, rales or rhonchi. ABDOMINAL: Soft. Non-tender. Non-distended. No rebound or guarding. No organomegaly. Normoactive bowel sounds. MUSCULOSKELETAL Normal range of motion at all joints. No bony deformities or tenderness. No CVA tenderness. EXTREMITIES: No cyanosis. No clubbing. No edema. No calf tenderness. SKIN: Warm and dry. Normal capillary refill. No rashes. No jaundice. NEUROLOGICAL: No gross focal neurological deficits. PSYCHIATRIC: Cooperative. Good eye contact. Appropriate mood and affect. <April Hatch - Last Filed: 05/13/17 21:15> - Vital Signs Last Vital Signs Temp Pulse Resp BP Pulse Ox 98.7 F 105 H 24 123/84 98 05/13/17 20:20 05/13/17 20:20 05/13/17 20:20 05/13/17 20:20 05/13/17 20:20 <Lupe Amor - Last Filed: 05/13/17 22:34> Heart Score/ECG Review #1 NSR @ 95bpm with normal axis. Normal intervals. No acute ST changes. <April Hatch - Last Filed: 05/13/17 21:15> ED Treatment Course - LABORATORY CBC & Chemistry Diagram: 05/13/17 21:30 05/13/17 21:30 <Lupe Amor - Last Filed: 05/13/17 22:34> Medical Decision Making - Medical Decision Making 05/13/17 21:25 42-year-old female with history of asthma and left knee injury who presents to the emergency Department with complaints of chest pain 2 days and shortness of breath as well as cough. The patient is afebrile, saturating onto percent on room air and is [id number]. Differential diagnosis includes but is not limited to: ACS, PE, pneumothorax, pneumonia, musculoskeletal pain, GERD, asthmatic exacerbation, ALLERGY. Plan: 1. EKG 2. Chest x-ray 3. Labs 4. Urine analysis and urine 5. Observe and reevaluate 05/13/17 22:31 Addendum: Labs were reviewed and are noted inthe EMR. The CXR appeared to have ? bibasilar atelectasis by my read. Zithromax was given to the patient asz well as an Rx sent to her pharmacy. At the patient's request, an Rx for Diflucan was also sent to her pharmacy for yeast infection as the patient states that she usually gets vaginal yeast infections when she takes antibiotics. I informed the patient that the D-dimer was still pending and if that was positive then she would need additional radiographic imaging. However , the patient eloped before the test was resulted. <Lupe Amor - Last Filed: 05/13/17 22:34> *DC/Admit/Observation/Transfer - Attestations Scribe Attestion: Documentation prepared by April Hatch, acting as medical receptionist for Lupe Amor MD. <April Hatch - Last Filed: 05/13/17 21:15> - Discharge Dispostion Admit: No - Attestations Physician Attestion: 05/13/17 21:26 I, Dr. Lupe Amor, attest that the scribes documentation that appears above has been prepared under my direction and personally reviewed by me in its entirety. I confirmed that the note above accurately reflects all work, treatment, procedures, and medical decision-making performed by me. <Lupe Amor - Last Filed: 05/13/17 22:34> Diagnosis at time of Disposition: Chest pain, Acute bronchitis - Discharge Dispostion Disposition: ELOPED Condition at time of disposition: Stable - Prescriptions Prescriptions: Fluconazole [Diflucan -] 50 mg PO DAILY #3 tablet Azithromycin [Zithromax -] 250 mg PO DAILY #4 tab
[2017-05-13 20:31] VITALS: BP 123/84; PULSE 105; TEMP 98.7; BMI 32.3
[2017-05-13 21:48] LABS: MEAN CELL VOLUME 93.6 fl (80-96); WHITE BLOOD COUNT 5.2 K/mm3 (4.0-10.8)
[2017-05-13 21:51] LABS: MCH 31.2 pg (25.7-33.7); MCHC 33.3 g/dl (32.0-36.0); MEAN PLT VOLUME 8.4 fl (7.5-11.1); PLATELET COUNT 288 K/MM3 (134-434); RDW 13.3 % (11.6-15.6)
[2017-05-13 21:54] LABS: PH,URINE 6.5 (4.5-8); URINE APPEARANCE Clear; URINE BILIRUBIN Negative (NEGATIVE); URINE BLOOD Negative (NEGATIVE); URINE GLUCOSE (UA) Negative (NEGATIVE); URINE KETONE Negative (NEGATIVE); URINE LEUK ESTERASE Negative (NEGATIVE); URINE NITRITE Negative (NEGATIVE); URINE PROTEIN Trace (NEGATIVE); URINE UROBILINOGEN 0.2 (0.2-1.0)
[2017-05-13 21:55] LABS: URINE COLOR YELLOW
[2017-05-13 22:01] LABS: ALBUMIN 3.2 g/dl (3.5-5.0); ALK PHOS 65 U/L (32-92); ANION GAP 5 (8-16); BILIRUBIN,TOTAL 0.5 mg/dl (0.2-1.0); CALCIUM 8.8 mg/dl (8.4-10.2); CO2 27 mmol/L (22-28); CREATININE 0.9 mg/dl (0.6-1.3); GLUCOSE,RANDOM 110 mg/dl (74-106); SGOT/AST 22 U/L (10-42); SGPT/ALT 19 U/L (10-40); TOT PROT 6.9 g/dl (6.4-8.3)
[2017-05-13 22:02] LABS: CPK 95 IU/L (26-192)
[2017-05-13 22:09] LABS: TROPONIN I (DFP) < 0.03 ng/ml (0.03-0.50)
[2017-05-13] MEDS ORDERED: AZITHROMYCIN 250 MG TABLET (FP) PO ONE (22:16)
[2017-05-13] MEDS ORDERED: AZITHROMYCIN 250 MG TABLET (FP) ONE (22:17)
[2017-05-13 23:07] LABS: REACTIVE LYMPHOCYTES 2 % (0-80)
[2017-05-13 23:08] LABS: ANISOCYTOSIS 1+; PLATELET ESTIMATE ADEQUATE
--- NOTE | 2017-05-14 16:27 | EKG ---
Test Reason : Blood Pressure : / mmHG Vent. Rate : 094 BPM Atrial Rate : 093 BPM P-R Int : 000 ms QRS Dur : 072 ms QT Int : 362 ms P-R-T Axes : 000 -19 -12 degrees QTc Int : 452 ms POOR DATA QUALITY, INTERPRETATION MAY BE ADVERSELY AFFECTED Probably sinus rhythm RSR' OR QR PATTERN IN V1 SUGGESTS RIGHT VENTRICULAR CONDUCTION DELAY WHEN COMPARED WITH ECG OF 10-APR-2017 17:36, NO SIGNIFICANT CHANGE WAS FOUND Confirmed by RAISA ENGLISH MD ([id number]) on 05/14/2017 4:26:48 PM Referred By: BENTLEY Confirmed By:RAISA ENGLISH MD
== END 2017-05-13 22:25 | disposition left against medical advice (07) ==
LOC: FER 20:20
DX: J40 Bronchitis, not specified as acute or chronic (principal); R07.9 Chest pain, unspecified; K21.9 Gastro-esophageal reflux disease without esophagitis; Z98.84 Bariatric surgery status; F32.9 Major depressive disorder, single episode, unspecified
CPT/HCPCS: 36415; 71020-TC; 80053; 81003; 83690; 84484; 84703; 85025; 85379; 93005; 99283-25

== ENCOUNTER 2017-05-14 01:07 | Emergency (ER) | payer BC ==
[2017-05-14 01:21] VITALS: BP 122/75; PULSE 99; TEMP 98.8; BMI 32.3
--- NOTE | 2017-05-14 01:47 | PDOC ---
*Physical Exam - Vital Signs Last Vital Signs Temp Pulse Resp BP Pulse Ox 98.8 F 99 H 18 122/75 100 05/14/17 01:18 05/14/17 01:18 05/14/17 01:18 05/14/17 01:18 05/14/17 01:18 ED Treatment Course - RADIOLOGY Radiology Studies Ordered: Category Date Time Status CHEST CTA [CT] Stat CT Scan 05/14/17 01:11 Ordered Progress Note - Progress Note Progress Note: Patient was seen tatyana 2 hours ago in the ED and eloped prior to the result of the D-dimer which returned elevated to 2567. She was recalled to the ED for CT angio of the chest to rule out PE. She offers no additonal complaints. Medical Decision Making - Medical Decision Making 05/14/17 04:32 Addendum: CT scan was negative for acute pulmonary embolism. The results of the study were discussed with the patient. The patient was encouraged to take the antibiotics as prescribed and to follow-up with her primary care physician within the next 1-3 days. I have also advised the patient to return to the ED if her symptoms persist, worsen or new symptoms arise. *DC/Admit/Observation/Transfer Diagnosis at time of Disposition: Chest pain, Bronchitis, acute - Discharge Dispostion Disposition: HOME Condition at time of disposition: Stable Admit: No - Patient Instructions Printed Discharge Instructions: DI for Acute Bronchitis, DI for Atypical Chest Pain Additional Instructions: Take the Zithromax (antibiotic) and Diflucan as prescribed. Please follow-up with your primary care physician within the next 1-3 days and return to the ED if your symptomsperist, worsen or new symptoms arise.
== END 2017-05-14 04:37 | disposition home or self-care (01) ==
LOC: FER 01:07
DX: R07.9 Chest pain, unspecified (principal); J40 Bronchitis, not specified as acute or chronic
CPT/HCPCS: 71275-TC; 99281-25

== ENCOUNTER 2017-06-04 15:47 | Emergency (ER) | payer BC ==
[2017-06-04 16:04] VITALS: BP 140/94; PULSE 122; TEMP 99.5; BMI 32.3
--- NOTE | 2017-06-04 16:11 | PDOC ---
History of Present Illness - General History Source: Patient Exam Limitations: No Limitations - History of Present Illness Initial Comments: 06/04/17 17:43 The patient is a 42 year old female with past medical history of asthma and hiatal hernia (awaiting surgical consult) who presents to the ED with complaints of nausea, vomiting, and diarrhea since she woke up this morning. She reports being unable to hold down any food or drink, and only ate a pumpkin yogurt today in which she then vomited up. The patient describes her emesis as the color of what she just ate or drank, with no blood. She also complains of some epigastric abd cramping as well. Has had 6 episodes of NBNB diarrhea. She has been treating her symptoms with famotidine and mylanta but has not received relief. The patient states that she has been experiencing similar symptoms as of late and relates them to her hernia. She denies any sick contacts. The patient denies any fever, chills, shortness of breath, chest pain, or urinary symptoms. <Sejal Huitron - Last Filed: 06/04/17 17:43> <Ang Arellano - Last Filed: 06/04/17 22:46> - General Chief Complaint: Vomiting/Diarrhea Stated Complaint: N/V/D SINCE THIS MORNING Time Seen by Provider: 06/04/17 15:49 Past History <Sejal Huitron - Last Filed: 06/04/17 17:43> - Past Medical History Anemia: No Asthma: Yes (USES INHALER,PROAIR,LAST USED 2 WEEKS AGO) Cancer: No Cardiac Disorders: No CVA: No COPD: No CHF: No Dementia: No Diabetes: No GI Disorders: Yes (GERD) Disorders: No HTN: No Hypercholesterolemia: No Liver Disease: No Psychiatric Problems: Yes (DEPRESSION) Seizures: No Thyroid Disease: No Other medical history: RHEUMATOID ARTHRITIS - Surgical History Abdominal Surgery: Yes (VERTICAL SLEEVE GASTRECTOMY 2012, ABDOMINOPLASTY/AND REVISION, LIPO X2, LEXIE) Appendectomy: No Cardiac Surgery: No Cholecystectomy: No Lung Surgery: No Neurologic Surgery: No Orthopedic Surgery: Yes - Psycho/Social/Smoking Cessation Hx Anxiety: Yes Suicidal Ideation: No Smoking Status: No Smoking History: Never smoked Years of Tobacco Use: 24 Have you smoked in the past 12 months: Yes Number of Cigarettes Smoked Daily: 0 'Breaking Loose' booklet given: 05/13/17 Hx Alcohol Use: No Drug/Substance Use Hx: No Substance Use Type: None Hx Substance Use Treatment: No <RiananushkaJonyestrellitacharles - Last Filed: 06/04/17 22:46> - Past Medical History Allergies/Adverse Reactions: Allergies Allergy/AdvReac Type Severity Reaction Status Date / Time shellfish derived Allergy Intermediate Verified 05/13/17 20:23 bupropion HCl Allergy Rash Verified 05/13/17 20:23 [From Wellbutrin] Home Medications: Ambulatory Orders Albuterol Sulfate [Proair Respiclick] 90 mcg IH PRN PRN 05/10/17 Famotidine [Pepcid] 20 mg PO BID 06/04/17 Ibuprofen 800 mg PO BID PRN 06/04/17 Mag Hydrox/Al Hydrox/Simeth [Mylanta Oral Suspension -] 30 ml PO PRN PRN Sulfasalazine [Sulfasalazine Dr] 500 mg PO BID 06/04/17 Zolpidem Tartrate [Ambien] 10 mg PO HS 06/04/17 Review of Systems - Review of Systems Able to Perform ROS?: Yes Comments:: 06/04/17 17:43 GENERAL/CONSTITUTIONAL: No fever or chills. No weakness. HEAD, EYES, EARS, NOSE AND THROAT: No change in vision. No ear pain or discharge. No sore throat. CARDIOVASCULAR: No chest pain or shortness of breath. RESPIRATORY: No cough, wheezing, or hemoptysis. GASTROINTESTINAL: Present: nausea, vomiting, diarrhea. No constipation. GENITOURINARY: No dysuria, frequency, or change in urination. MUSCULOSKELETAL: No joint or muscle swelling or pain. No neck or back pain. SKIN: No rash NEUROLOGIC: No headache, vertigo, loss of consciousness, or change in strength/ sensation. ENDOCRINE: No increased thirst. No abnormal weight change. HEMATOLOGIC/LYMPHATIC: No anemia, easy bleeding, or history of blood clots. ALLERGIC/IMMUNOLOGIC: No hives or skin allergy. All Other Systems: Reviewed and Negative <Sejal Huitron - Last Filed: 06/04/17 17:43> *Physical Exam - Vital Signs Last Vital Signs Temp Pulse Resp BP Pulse Ox 99.5 F 122 H 16 140/94 97 06/04/17 15:48 06/04/17 15:48 06/04/17 15:48 06/04/17 15:48 06/04/17 15:48 - Physical Exam Comments: 06/04/17 17:44 GENERAL: Awake, alert, and fully oriented, in no acute distress. HEAD: No signs of trauma EYES: PERRLA, EOMI, sclera anicteric, conjunctiva clear ENT: Auricles normal inspection, hearing grossly normal, nares patent, oropharynx clear without exudates. Moist mucosa NECK: Normal ROM, supple, no lymphadenopathy, JVD, or masses LUNGS: Breath sounds equal, clear to auscultation bilaterally. No wheezes, and no crackles HEART: Regular rate and rhythm, normal S1 and S2, no murmurs, rubs or gallops ABDOMEN: Soft, +mild ttp to deep epigastric palpation, normoactive bowel sounds. No guarding, no rebound. No masses EXTREMITIES: Normal range of motion, no edema. No clubbing or cyanosis. No cords , erythema, or tenderness NEUROLOGICAL: Normal speech, cranial nerves intact, negative pronator drift, 5/ 5 strength in all 4 extremities, normal sensation to light touch in all 4 extremities, normal cerebellar exam, normal gait, normal reflexes and tone SKIN: Warm, Dry, normal turgor, no rashes or lesions noted. <Sejal Huitron - Last Filed: 06/04/17 17:43> - Vital Signs Last Vital Signs Temp Pulse Resp BP Pulse Ox 99.5 F 122 H 16 140/94 97 06/04/17 15:48 06/04/17 15:48 06/04/17 15:48 06/04/17 15:48 06/04/17 15:48 <Ang Arellano - Last Filed: 06/04/17 22:46> ED Treatment Course - LABORATORY CBC & Chemistry Diagram: 06/04/17 16:30 06/04/17 16:30 - ADDITIONAL ORDERS Additional order review: 06/04/17 16:30 RBC 4.07 D MCV 92.1 MCHC 32.3 RDW 13.4 MPV 8.7 Neutrophils % Y Lymphocytes % Y - Medications Given in the ED: ED Medications Discontinued Medications Generic Name Dose Route Start Last Admin Trade Name Freq PRN Reason Stop Dose Admin Pantoprazole Sodium 40 mg/ 100 mls @ 200 mls/hr 06/04/17 16:14 06/04/17 16:45 Sodium Chloride IVPB 06/04/17 16:43 200 mls/hr ONCE ONE Administration Ondansetron HCl 4 mg 06/04/17 16:13 06/04/17 16:35 Zofran Injection IVPUSH 06/04/17 16:14 4 mg ONCE ONE Administration Sodium Chloride 1,000 ml 06/04/17 16:13 06/04/17 16:30 Normal Saline - IV 06/04/17 16:14 1,000 ml ONCE ONE Administration <Sejal Huitron - Last Filed: 06/04/17 17:43> - LABORATORY CBC & Chemistry Diagram: 06/04/17 16:30 06/04/17 16:30 <Ang Arellano - Last Filed: 06/04/17 22:46> Medical Decision Making - Medical Decision Making 06/04/17 17:28 42yo F hx hiatal hernia, gastric sleeve, p/w acute on chronic N/V/D a/w epigastric abd cramping. Exam notable for mild epigastric tenderness to deep palpation. Pt was tachycardic in triage to 122, HR currently down to 100. Differential includes but is not limited to gastroenteritis vs gastritis vs GERD vs colitis. Given relatively benign abd exam, will hold off on imaging and do serial abd exams. -labs -PPI, antiemetics, IVF 06/04/17 19:00 WBC 16, otherwise labs and UA unremarkable. WBC possible secondary to gastroenteritis. Pt reports she feels much better, is no longer nauseous, and requesting to eat. Repeat abdominal exam unremarkable with no ttp, rebound or guarding. Repeat HR 88. If patient can tolerate PO, can be discharged. Pt signed out to Dr. Madsen for further evaluation and management. <Ang Arellano - Last Filed: 06/04/17 22:46> *DC/Admit/Observation/Transfer - Attestations Scribe Attestion: 06/04/17 17:45 Documentation prepared by Sejal Huitron, acting as medical technologist prn for Ang Arellano MD. <Sejal Huitron - Last Filed: 06/04/17 17:43> - Attestations Physician Attestion: 06/04/17 22:46 I, Dr. Ang Arellano MD, attest that this document has been prepared under my direction and personally reviewed by me in its entirety. I further attest, that it accurately reflects all work, treatment, procedures and medical decision -making performed by me. <Ang Arellano - Last Filed: 06/04/17 22:46> Diagnosis at time of Disposition: GERD with esophagitis - Discharge Dispostion Disposition: HOME Condition at time of disposition: Stable - Referrals Referrals: Gab Valdes MD [Staff Physician] - - Patient Instructions Printed Discharge Instructions: DI for Gastroesophageal Reflux Disease (GERD) Additional Instructions: Continue medications as previously Continue small meals as previously Return to ER if you have severe pain/vomiting Call Dr. Valdes on Wednesday, June 07 and arrange follow-up as discussed
[2017-06-04] MEDS ORDERED: ONDANSETRON 4 MG/2 ML VIAL IVPUSH ONE (16:13)
[2017-06-04] MEDS ORDERED: SODIUM CHLORIDE 0.9% 500 ML INFUS.BAG IV ONE (16:13)
[2017-06-04] MEDS ORDERED: PANTOPRAZOLE SODIUM 40 MG in SODIUM CHLORIDE 100 ML IVPB ONE (16:14)
[2017-06-04] MEDS ORDERED: ONDANSETRON 4 MG/2 ML VIAL ONE (16:19)
[2017-06-04] MEDS ORDERED: PANTOPRAZOLE SODIUM 40 MG VIAL ONE (16:19)
[2017-06-04 16:54] LABS: MCH 29.7 pg (25.7-33.7); MCHC 32.3 g/dl (32.0-36.0); MEAN CELL VOLUME 92.1 fl (80-96); MEAN PLT VOLUME 8.7 fl (7.5-11.1); PLATELET COUNT 352 K/MM3 (134-434); RDW 13.4 % (11.6-15.6); WHITE BLOOD COUNT 15.9 K/mm3 (4.0-10.8)
[2017-06-04] MEDS ORDERED: METOCLOPRAMIDE HCL INJECTION 10 MG/2 ML VIAL IVPB ONE (17:02)
[2017-06-04 17:03] LABS: ALK PHOS 76 U/L (32-92); ANION GAP 12 (8-16); BILIRUBIN,TOTAL 0.9 mg/dl (0.2-1.0); CO2 26 mmol/L (22-28); CREATININE 1.1 mg/dl (0.6-1.3); GLUCOSE,RANDOM 159 mg/dl (74-106); MAGNESIUM 2.3 mg/dL (1.8-2.4); SGOT/AST 29 U/L (10-42); SGPT/ALT 21 U/L (10-40); TOT PROT 8.3 g/dl (6.4-8.3)
[2017-06-04 18:01] LABS: PH,URINE 5.5 (4.5-8); URINE APPEARANCE Clear; URINE BILIRUBIN 1+ (NEGATIVE); URINE GLUCOSE (UA) Negative (NEGATIVE); URINE KETONE Trace (NEGATIVE); URINE LEUK ESTERASE Negative (NEGATIVE); URINE NITRITE Negative (NEGATIVE); URINE UROBILINOGEN 0.2 (0.2-1.0)
[2017-06-04 18:02] LABS: URINE BLOOD Trace-intact (NEGATIVE); URINE COLOR YELLOW; URINE PROTEIN 1+ (NEGATIVE)
[2017-06-04] MEDS ORDERED: POTASSIUM CHLORIDE ORAL LIQUID 20 MEQ/15 ML PO ONE (18:13)
--- NOTE | 2017-06-04 19:52 | PDOC ---
*Physical Exam - Vital Signs Last Vital Signs Temp Pulse Resp BP Pulse Ox 99.5 F 122 H 16 140/94 97 06/04/17 15:48 06/04/17 15:48 06/04/17 15:48 06/04/17 15:48 06/04/17 15:48 ED Treatment Course - LABORATORY CBC & Chemistry Diagram: 06/04/17 16:30 06/04/17 16:30 - ADDITIONAL ORDERS Additional order review: Laboratory Results 06/04/17 06/04/17 17:00 16:30 Sodium 133 L Potassium 3.2 L D Chloride 95 L Carbon Dioxide 26 Anion Gap 12 BUN 15 D Creatinine 1.1 D Creat Clearance w eGFR 54.74 Random Glucose 159 H D Calcium 10.0 Magnesium 2.3 Total Bilirubin 0.9 D AST 29 D ALT 21 Alkaline Phosphatase 76 Total Protein 8.3 D Albumin 4.0 D Lipase 65 H Urine Color Yellow Urine Appearance Clear Urine pH 5.5 Ur Specific Freeman >= 1.030 H Urine Protein 1+ H Urine Glucose (UA) Negative Urine Ketones Trace Urine Blood Trace-intact H Urine Nitrite Negative Urine Bilirubin 1+ H Urine Urobilinogen 0.2 Ur Leukocyte Esterase Negative Urine HCG, Qual Negative 06/04/17 16:30 RBC 4.07 D MCV 92.1 MCHC 32.3 RDW 13.4 MPV 8.7 Neutrophils % Y Lymphocytes % Y - Medications Given in the ED: ED Medications Discontinued Medications Generic Name Dose Route Start Last Admin Trade Name Freq PRN Reason Stop Dose Admin Pantoprazole Sodium 40 mg/ 100 mls @ 200 mls/hr 06/04/17 16:14 06/04/17 16:45 Sodium Chloride IVPB 06/04/17 16:43 200 mls/hr ONCE ONE Administration Metoclopramide HCl 10 mg 06/04/17 17:02 06/04/17 17:30 Reglan Injection - IVPB 06/04/17 17:03 10 mg ONCE ONE Administration Ondansetron HCl 4 mg 06/04/17 16:13 06/04/17 16:35 Zofran Injection IVPUSH 06/04/17 16:14 4 mg ONCE ONE Administration Potassium Chloride 40 meq 06/04/17 18:13 06/04/17 19:10 Potassium Chloride Oral Liquid PO 06/04/17 18:14 40 meq ONCE ONE Administration Sodium Chloride 1,000 ml 06/04/17 16:13 06/04/17 16:30 Normal Saline - IV 06/04/17 16:14 1,000 ml ONCE ONE Administration Progress Note - Progress Note Progress Note: Care of this patient received from . Patient tolerated liquids and small solid meal without recurrence of pain/ vomiting. Patient will be discharged with instructions to continue omeprazole and small meals as previously. She will follow-up with Dr. Valdes within the next several days; return to ER if severe symptoms recur *DC/Admit/Observation/Transfer Diagnosis at time of Disposition: GERD with esophagitis - Discharge Dispostion Disposition: HOME Condition at time of disposition: Stable - Referrals Referrals: Gab Valdes MD [Staff Physician] - - Patient Instructions Printed Discharge Instructions: DI for Gastroesophageal Reflux Disease (GERD) Additional Instructions: Continue medications as previously Continue small meals as previously Return to ER if you have severe pain/vomiting Call Dr. Valdes on Wednesday, June 07 and arrange follow-up as discussed
[2017-06-04 19:59] LABS: URINE BACTERIA FEW /hpf (NEGATIVE)
[2017-06-04 20:02] LABS: PLATELET ESTIMATE SLT INCREASED (NORMAL)
== END 2017-06-04 20:15 | disposition home or self-care (01) ==
LOC: FER 15:47
PROC: 3E0337Z Introduction of Electrolytic and Water Balance Substance into Peripheral Vein, Percutaneous Approach (ICD-10-PCS; principal; 2017-06-04)
PROC: 3E033GC Introduction of Other Therapeutic Substance into Peripheral Vein, Percutaneous Approach (ICD-10-PCS; 2017-06-04)
DX: K21.0 Gastro-esophageal reflux disease with esophagitis (principal); Z98.84 Bariatric surgery status
CPT/HCPCS: 36415; 80053; 81003; 81015; 83690; 83735; 84703; 85025; 99281-25

== ENCOUNTER 2017-06-11 13:13 | Emergency (ER) | payer BC ==
[2017-06-11 13:24] VITALS: BP 106/68; PULSE 89; TEMP 98.5; BMI 31.6
--- NOTE | 2017-06-11 13:32 | PDOC ---
History of Present Illness - General Chief Complaint: Weakness Stated Complaint: WEAK WHEN I GET MY MENSTRATION Time Seen by Provider: 06/11/17 13:15 - History of Present Illness Initial Comments: 06/11/17 13:27 42 F with h/o asthma, GERD, obesity s/p gastric sleeve (2011), depression, and rheumatoid arthritis, presenting to ER requesting note for work. Pt states that she missed the past 2 days of work due to being on her menstrual period. Pt states that she typically feels very weak during her periods and has to call out of work. However, she was unable to get in to see her primary doctor and could not get a work note. She reports that she feels much better today, but she cannot return to work without a note from a doctor. Pt denies any symptoms at this time. Denies lightheadedness/CP/SOB/ palpitations. Denies abdominal pain. Denies vaginal bleeding or discharge. Offered to check labs, but pt declined. Past History - Past Medical History Allergies/Adverse Reactions: Allergies Allergy/AdvReac Type Severity Reaction Status Date / Time shellfish derived Allergy Intermediate Verified 06/11/17 13:14 bupropion HCl Allergy Rash Verified 06/11/17 13:14 [From Wellbutrin] Home Medications: Ambulatory Orders Albuterol Sulfate [Proair Respiclick] 90 mcg IH PRN PRN 05/10/17 Zolpidem Tartrate [Ambien] 10 mg PO HS 06/04/17 Clonidine HCl [Catapres -] 0.1 mg PO DAILY 06/11/17 Ibuprofen 800 mg PO DAILY 06/11/17 Omeprazole 40 mg PO DAILY 06/11/17 Sertraline HCl [Zoloft -] 50 mg PO DAILY 06/11/17 Anemia: No Asthma: Yes (USES INHALER,PROAIR,LAST USED 2 WEEKS AGO) Cancer: No Cardiac Disorders: No CVA: No COPD: No CHF: No Dementia: No Diabetes: No GI Disorders: Yes (GERD) Disorders: No HTN: No Hypercholesterolemia: No Liver Disease: No Psychiatric Problems: Yes (DEPRESSION) Seizures: No Thyroid Disease: No - Surgical History Abdominal Surgery: Yes (VERTICAL SLEEVE GASTRECTOMY 2011, ABDOMINOPLASTY/AND REVISION, LIPO X2, LEXIE) Appendectomy: No Cardiac Surgery: No Cholecystectomy: No Lung Surgery: No Neurologic Surgery: No Orthopedic Surgery: Yes - Psycho/Social/Smoking Cessation Hx Anxiety: Yes Suicidal Ideation: No Smoking Status: No Smoking History: Never smoked Years of Tobacco Use: 24 Have you smoked in the past 12 months: Yes Number of Cigarettes Smoked Daily: 0 'Breaking Loose' booklet given: 05/13/17 Hx Alcohol Use: No Drug/Substance Use Hx: No Substance Use Type: None Hx Substance Use Treatment: No Review of Systems - Review of Systems Comments:: 06/11/17 13:29 "GENERAL/CONSTITUTIONAL: No fever or chills. No weakness. HEAD, EYES, EARS, NOSE AND THROAT: No change in vision. No ear pain or discharge. No sore throat. CARDIOVASCULAR: No chest pain or shortness of breath. RESPIRATORY: No cough, wheezing, or hemoptysis. GASTROINTESTINAL: No nausea, vomiting, diarrhea or constipation. GENITOURINARY: No dysuria, frequency, or change in urination. MUSCULOSKELETAL: No joint or muscle swelling or pain. No neck or back pain. SKIN: No rash NEUROLOGIC: No headache, vertigo, loss of consciousness, or change in strength/ sensation. ENDOCRINE: No increased thirst. No abnormal weight change. HEMATOLOGIC/LYMPHATIC: No anemia, easy bleeding, or history of blood clots. ALLERGIC/IMMUNOLOGIC: No hives or skin allergy. " *Physical Exam - Vital Signs Last Vital Signs Temp Pulse Resp BP Pulse Ox 98.5 F 89 17 106/68 98 06/11/17 13:13 06/11/17 13:13 06/11/17 13:13 06/11/17 13:13 06/11/17 13:13 - Physical Exam Comments: 06/11/17 13:29 "GENERAL: Awake, alert, and fully oriented, in no acute distress HEAD: No signs of trauma EYES: PERRLA, EOMI, sclera anicteric, conjunctiva clear ENT: Auricles normal inspection, hearing grossly normal, nares patent, oropharynx clear without exudates. Moist mucosa NECK: Normal ROM, supple, no lymphadenopathy, JVD, or masses LUNGS: Breath sounds equal, clear to auscultation bilaterally. No wheezes, and no crackles HEART: Regular rate and rhythm, normal S1 and S2, no murmurs, rubs or gallops ABDOMEN: Soft, nontender, normoactive bowel sounds. No guarding, no rebound. No masses EXTREMITIES: Normal range of motion, no edema. No clubbing or cyanosis. No cords, erythema, or tenderness NEUROLOGICAL: Cranial nerves II through XII grossly intact. Normal speech, normal gait SKIN: Warm, Dry, normal turgor, no rashes or lesions noted. " Medical Decision Making - Medical Decision Making 06/11/17 13:29 42 F with no acute complaints, requesting note for work. Pt declining any additional work up at this time as she feels well. - DC with PMD f/u *DC/Admit/Observation/Transfer Diagnosis at time of Disposition: Irregular menstrual cycle - Discharge Dispostion Disposition: HOME Condition at time of disposition: Good - Patient Instructions Printed Discharge Instructions: DI for Dysmenorrhea Additional Instructions: Please follow up with your primary doctor regarding your menstrual periods. - Post Discharge Activity Work/School Note: Back to Work - Attestations Physician Attestion: 06/11/17 13:31 I, Dr. Luis Cornelius MD, attest that this document has been prepared under my direction and personally reviewed by me in its entirety. I further attest, that it accurately reflects all work, treatment, procedures and medical decision -making performed by me.
== END 2017-06-11 13:34 | disposition home or self-care (01) ==
LOC: FER 13:13
DX: N92.6 Irregular menstruation, unspecified (principal); K21.9 Gastro-esophageal reflux disease without esophagitis; F32.9 Major depressive disorder, single episode, unspecified; Z98.84 Bariatric surgery status; J45.909 Unspecified asthma, uncomplicated; Z87.891 Personal history of nicotine dependence
CPT/HCPCS: 99281-25

== ENCOUNTER 2017-06-16 15:31 | Emergency (ER) | payer BC ==
[2017-06-16 15:36] VITALS: BP 110/64; PULSE 95; TEMP 99.5; BMI 31.8
--- NOTE | 2017-06-16 15:39 | PDOC ---
History of Present Illness - History of Present Illness Initial Comments: 06/16/17 15:55 The patient is a 42 year old female with no significant past medical history who presents to the Emergency Department with right hallux pain since last night. Patient stated that she was vomiting last night when she fell out of the bed and hurt her right hallux. She rates her toe pain 8/10. She denies taking any pain medication. She denies any other symptoms. <Martha Sanchez - Last Filed: 06/16/17 15:55> - General History Source: Patient Exam Limitations: No Limitations <Debra Massey - Last Filed: 06/16/17 16:32> - General Chief Complaint: Pain, Acute Stated Complaint: right 1st toe pain Time Seen by Provider: 06/16/17 15:33 Past History <Martha Sanchez - Last Filed: 06/16/17 15:55> - Past Medical History Anemia: No Asthma: Yes (USES INHALER,PROAIR,LAST USED 2 WEEKS AGO) Cancer: No Cardiac Disorders: No CVA: No COPD: No CHF: No Dementia: No Diabetes: No GI Disorders: Yes (GERD) Disorders: No HTN: No Hypercholesterolemia: No Liver Disease: No Psychiatric Problems: Yes (DEPRESSION) Seizures: No Thyroid Disease: No - Surgical History Abdominal Surgery: Yes (VERTICAL SLEEVE GASTRECTOMY 2012, ABDOMINOPLASTY/AND REVISION, LIPO X2, LEXIE) Appendectomy: No Cardiac Surgery: No Cholecystectomy: No Lung Surgery: No Neurologic Surgery: No Orthopedic Surgery: Yes - Suicide/Smoking/Psychosocial Hx Smoking Status: No Smoking History: Current every day smoker Years of Tobacco Use: 24 Have you smoked in the past 12 months: Yes Number of Cigarettes Smoked Daily: 0 Information on smoking cessation initiated: Yes 'Breaking Loose' booklet given: 06/11/17 Hx Alcohol Use: No Drug/Substance Use Hx: No Substance Use Type: None Hx Substance Use Treatment: No <Debra Massey - Last Filed: 06/16/17 16:32> - Past Medical History Allergies/Adverse Reactions: Allergies Allergy/AdvReac Type Severity Reaction Status Date / Time shellfish derived Allergy Intermediate Verified 06/16/17 15:32 bupropion HCl Allergy Rash Verified 06/16/17 15:32 [From Wellbutrin] Home Medications: Ambulatory Orders Albuterol Sulfate [Proair Respiclick] 90 mcg IH PRN PRN 05/10/17 Zolpidem Tartrate [Ambien] 10 mg PO HS 06/04/17 Clonidine HCl [Catapres -] 0.1 mg PO DAILY 06/11/17 Ibuprofen 800 mg PO DAILY 06/11/17 Omeprazole 40 mg PO DAILY 06/11/17 Sertraline HCl [Zoloft -] 50 mg PO DAILY 06/11/17 Ibuprofen [Motrin -] 600 mg PO TID PRN #21 tablet 06/16/17 Review of Systems - Review of Systems Comments:: 06/16/17 15:58 GENERAL/CONSTITUTIONAL: No: fever, chills, weakness, loss of appetite. HEAD, EYES, EARS, NOSE AND THROAT: No: change in vision, ear pain, discharge, sore throat, throat swelling. CARDIOVASCULAR: No: chest pain, lightheadedness, palpitations, syncope RESPIRATORY: No: cough, shortness of breath, wheezing, hemoptysis, stridor. GASTROINTESTINAL: No: nausea, abdominal cramping, diarrhea, rectal bleeding, constipation. GENITOURINARY: No: dysuria, hematuria, frequency, urgency, flank pain. MUSCULOSKELETAL: + Right hallux pain. No: back pain, neck pain, joint pain, muscle swelling or pain SKIN AND BREASTS: No: lesions, pallor, rash or easy bruising. NEUROLOGIC: No: headache, vertigo, paresthesias, weakness ENDOCRINE: No: unexplained weight gain or loss HEMATOLOGIC/LYMPHATIC: No: anemia, easy bleeding, swelling nodes <Martha Sanchez - Last Filed: 06/16/17 15:55> *Physical Exam - Vital Signs Last Vital Signs Temp Pulse Resp BP Pulse Ox 99.5 F 95 H 18 110/64 96 06/16/17 15:32 06/16/17 15:32 06/16/17 15:32 06/16/17 15:32 06/16/17 15:32 - Physical Exam Comments: 06/16/17 15:59 GENERAL: The patient is in no acute distress. HEAD: Normal with no signs of trauma. EYES: PERRLA, EOMI, sclera anicteric, conjunctiva clear. ENT: Ears normal, nares patent, oropharynx clear without exudates. Moist mucous membranes. NECK: Normal range of motion, supple without lymphadenopathy, JVD, or masses. LUNGS: Breath sounds equal, clear to auscultation bilaterally. No wheezes, and no crackles. HEART:Regular rate and rhythm, normal S1 and S2 without murmur, rub or gallop. ABDOMEN: Soft, nontender, normoactive bowel sounds. No guarding, no rebound. EXTREMITIES: + Right hallux tenderness. No clubbing or cyanosis. No erythema. NEUROLOGICAL: Cranial nerves II through XII grossly intact. Normal speech. No focal neurological deficits. MUSCULOSKELETAL: Back non-tender to palpation, no CVA tenderness SKIN: Warm, Dry, normal turgor, no rashes or lesions noted. <Martha Sanchez - Last Filed: 06/16/17 15:55> - Vital Signs Last Vital Signs Temp Pulse Resp BP Pulse Ox 99.5 F 95 H 18 110/64 96 06/16/17 15:32 06/16/17 15:32 06/16/17 15:32 06/16/17 15:32 06/16/17 15:32 <Debra Massey - Last Filed: 06/16/17 16:32> Medical Decision Making - Medical Decision Making 06/16/17 15:40 This patient presents to the ER after stubbing her toe Pain in the plantar surface of the proximal right great toe Will do x ray Will give motrin 06/16/17 16:27 X rays do not appear to demonstrate fracture Will place in hard soled shoe Will discharge to home Clinical impression: toe pain <Debra Massey - Last Filed: 06/16/17 16:32> *DC/Admit/Observation/Transfer - Attestations Scribe Attestion: 06/16/17 15:59 Documentation prepared by Martha Sanchez, acting as lead medical technologist for Debra Massey MD. <Martha Sanchez - Last Filed: 06/16/17 15:55> - Discharge Dispostion Admit: No <Debra Massey - Last Filed: 06/16/17 16:32> Diagnosis at time of Disposition: Toe pain, right - Discharge Dispostion Disposition: HOME Condition at time of disposition: Stable - Prescriptions Prescriptions: Ibuprofen [Motrin -] 600 mg PO TID PRN #21 tablet PRN Reason: Pain - Patient Instructions Printed Discharge Instructions: DI for Turf Toe, DI for Toe Sprain Additional Instructions: Thank you for coming in to the ER today You can wear a hard soled shoe You can take motrin for pain Follow up with your primary care physician and with podiatry Return to the ER for any other concerns or complaints - Post Discharge Activity Forms/Work/School Notes: Back to Work
[2017-06-16] MEDS ORDERED: IBUPROFEN 600 MG TABLET (FP) PO ONE ×2 (15:40→16:35)
== END 2017-06-16 16:40 | disposition home or self-care (01) ==
LOC: FER 15:31
DX: M79.674 Pain in right toe(s) (principal); W06.XXXA Fall from bed, initial encounter; Y93.89 Activity, other specified; Y92.9 Unspecified place or not applicable; K21.9 Gastro-esophageal reflux disease without esophagitis; F32.9 Major depressive disorder, single episode, unspecified; F17.210 Nicotine dependence, cigarettes, uncomplicated
CPT/HCPCS: 73660-TC; 99282-25

== ENCOUNTER 2017-07-20 16:47 | Emergency (ER) | payer BC ==
[2017-07-20 17:28] VITALS: BP 142/85; PULSE 93; TEMP 98.3; BMI 35.5
--- NOTE | 2017-07-20 17:46 | PDOC ---
History of Present Illness - General Chief Complaint: Depression Stated Complaint: depression Time Seen by Provider: 07/20/17 16:57 History Source: Patient, Old Records Exam Limitations: No Limitations - History of Present Illness Initial Comments: 07/20/17 17:37 42-year-old female with h/o depression, asthma, GERD, obesity presents to ED for a work clearance note for work. 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 She needed to call out of work for her shifts yesterday and today, and so will need to the doctor's note to excuse her, which is why she presents today. One week ago at the onset of this bout with her girlfriend, she did resort to her usual habits of cutting her arm. She was seen by her orthopedic doctor at this time, spoke to her psychiatrist and has been managed as an outpatient by both her psychiatrist and a friend who works in mental health. The patient is very clear that she has no intentions of hurting herself or killing herself, her cutting is a means of stress relief. She has no homicidal ideations or any hallucinations, the cuts did not hurt and have not been infected, she is treating them and keeping them clean with bacitracin. The patient spoke to her girlfriend today for the first time since a week ago, which made her feel better knowing her girlfriend was okay. She has 2 psychiatrists that she follows, Dr. [place] and Dr. Cormier, but she would like a 3rd option. She is living in her own apartment, is close with her mom. Her only SA was at age 13, and considers even that a cry for help. She is aware of her illness and knows when to seek help. Her psychiatrist and mental help friend have been in touch with her and her spirits are improving. She has no physical complaints. Past History - Past Medical History Allergies/Adverse Reactions: Allergies Allergy/AdvReac Type Severity Reaction Status Date / Time shellfish derived Allergy Intermediate Verified 06/16/17 15:32 bupropion HCl Allergy Rash Verified 06/16/17 15:32 [From Wellbutrin] Home Medications: Ambulatory Orders Albuterol Sulfate [Proair Respiclick] 90 mcg IH PRN PRN 05/10/17 Zolpidem Tartrate [Ambien] 10 mg PO HS 06/04/17 Clonidine HCl [Catapres -] 0.1 mg PO DAILY 06/11/17 Ibuprofen 800 mg PO DAILY 06/11/17 Omeprazole 40 mg PO DAILY 06/11/17 Sertraline HCl [Zoloft -] 50 mg PO DAILY 06/11/17 Clonazepam [Klonopin] 1 mg PO BID 07/20/17 Anemia: No Asthma: Yes (USES INHALER,PROAIR,LAST USED 2 WEEKS AGO) Cancer: No Cardiac Disorders: No CVA: No COPD: No CHF: No Dementia: No Diabetes: No GI Disorders: Yes (GERD) Disorders: No HTN: No Hypercholesterolemia: No Liver Disease: No Psychiatric Problems: Yes (DEPRESSION) Seizures: No Thyroid Disease: No - Surgical History Abdominal Surgery: Yes (VERTICAL SLEEVE GASTRECTOMY 2011, ABDOMINOPLASTY/AND REVISION, LIPO X2, LEXIE) Appendectomy: No Cardiac Surgery: No Cholecystectomy: No Lung Surgery: No Neurologic Surgery: No Orthopedic Surgery: Yes - Suicide/Smoking/Psychosocial Hx Smoking Status: No Smoking History: Current every day smoker Years of Tobacco Use: 24 Have you smoked in the past 12 months: Yes Number of Cigarettes Smoked Daily: 5 Information on smoking cessation initiated: Yes 'Breaking Loose' booklet given: 07/20/17 Hx Alcohol Use: No Drug/Substance Use Hx: No Substance Use Type: None Hx Substance Use Treatment: No Review of Systems - Review of Systems Constitutional: No: Chills, Fever Respiratory: No: Cough, Shortness of Breath Cardiac (ROS): No: Chest Pain, Syncope ABD/GI: No: Constipated, Diarrhea, Vomiting Integumentary: Yes: See HPI Psychiatric: Yes: Depression All Other Systems: Reviewed and Negative *Physical Exam - Vital Signs Last Vital Signs Temp Pulse Resp BP Pulse Ox 98.3 F 93 H 20 142/85 100 07/20/17 16:48 07/20/17 16:48 07/20/17 16:48 07/20/17 16:48 07/20/17 16:48 - Physical Exam Comments: 07/20/17 17:46 Vital signs normal. GENERAL: The patient is awake, alert, and fully oriented, in no acute distress. Walked in to the emergency department on her own, knows the staff well and was conversant and laughing with them HEAD: Normal with no signs of trauma. EYES: PERRL, EOMI, sclera anicteric, conjunctiva clear with no pallor. ENT: oropharynx clear without exudates. Moist mucous membranes. NECK: Normal range of motion, supple without lymphadenopathy, JVD, or masses. LUNGS: Breath sounds equal, clear to auscultation bilaterally. No wheeze/ crackles. HEART: Regular rate and rhythm, normal S1 and S2 without murmur or rub. ABDOMEN: Soft/nontender/nondistended. BS wnl. No guarding or rebound. No palpable masses. No hepatosplenomegaly. EXTREMITIES: Normal range of motion, no edema. 2+ distal pulses. No cords, erythema, or tenderness. NEUROLOGICAL: Cranial nerves II through XII grossly intact. Normal speech, normal gait. PSYCH: Normal mood, normal affect. SKIN: Old linear scars from cutting in the upper forearm on the left, healing superficial abrasions to the distal dorsal forearm with scab in place, no discharge or bleeding, no erythema or warmth or tenderness. Neurovascularly intact throughout. Medical Decision Making - Medical Decision Making 07/20/17 17:48 42-year-old female with history of depression with recent emotional stress for after long-term relationship ended, exhibited cutting behavior at the onset about one week ago in hopes of relieving her stress but not with any suicidal ideation or attempts. She has since spoken to and been in touch with her psychiatrist, she denies any suicidal ideations at this time and states her emotional status is improving. She is laughing and conversant and appropriate here, making good eye contact and denying any intentions of hurting herself. She did have to call off work for 2 days because she was feeling stressed, and needs a work note from a doctor as per protocol. Her abrasions/lacerations have no evidence of infection and appear to be healing well. Offered patient to see a psychiatrist here, she declines We'll provide work note Wound care instructions given Strict return precautions regarding any changes in her emotional status. Patient agrees with the plan. *DC/Admit/Observation/Transfer Diagnosis at time of Disposition: Stress - Discharge Dispostion Disposition: HOME Condition at time of disposition: Improved - Referrals Referrals: Tim Paz MD [Staff Physician] - - Patient Instructions Printed Discharge Instructions: DI for Depression -- Adult Additional Instructions: Activity as tolerated. Stay hydrated. Bacitracin to the wounds twice daily until fully healed. Keep clean and dry without soaking or scrubbing. Continue your medications as previously prescribed by your physician. You should follow up with your primary doctor and psychiatrist as soon as possible regarding today's emergency department visit. Consider calling Dr. Paz for an appointment if you're looking for a new psychiatrist. Return to the emergency department for any new or concerning symptoms, particularly persistent or worsening depression, thoughts of hurting yourself or others, redness/swelling/pain to the arm, fever or chills. - Post Discharge Activity Forms/Work/School Notes: Back to Work, My Personal Safety Plan
== END 2017-07-20 18:13 | disposition home or self-care (01) ==
LOC: FER 16:47
DX: F43.9 Reaction to severe stress, unspecified (principal); J45.909 Unspecified asthma, uncomplicated; K21.9 Gastro-esophageal reflux disease without esophagitis; E66.9 Obesity, unspecified; Z68.35 Body mass index [BMI] 35.0-35.9, adult; F32.9 Major depressive disorder, single episode, unspecified; F17.210 Nicotine dependence, cigarettes, uncomplicated; Z98.84 Bariatric surgery status
CPT/HCPCS: 99282-25

== ENCOUNTER 2017-07-29 23:32 | Emergency (ER) | payer BC ==
--- NOTE | 2017-07-29 23:42 | PDOC ---
History of Present Illness - General Chief Complaint: Psychiatric Stated Complaint: depression Time Seen by Provider: 07/29/17 23:41 History Source: Patient Exam Limitations: No Limitations - History of Present Illness Initial Comments: This is a 42-year-old female with history of anxiety and depression who comes in saying she is depressed and has been unable to work the last couple a days. Patient said that her employer told her she could take off what time she needed but she needs a note. So patient is here for a note. In further discussion with the patient she said she is not suicidal, she is not homicidal. She does not want to hurt herself and does not have a plan to hurt herself. Patient has a psychiatrist that she follows up with and has an appointment to see her psychiatrist on Wednesday. Patient did try to get an earlier appointment but was unable. Patient says she is having a difficulty time sleeping but otherwise denies any complaints. PAST MEDICAL HISTORY: no significant history PAST SURGICAL HISTORY: no significant history FAMILY HISTORY: no pertinant history SOCIAL HISTORY: Pt lives with family and is employed. MEDICATIONS: reviewed ALLERGIES: As per nursing notes Review of Systems General: No fevers or chills, no weakness, no weight loss HEENT: No change in vision. No sore throat,. No ear pain CardioVascular: No chest pain or shortness of breath Respiratory:No cough, or wheezing. Gastrointestinal: no nausea, vomitting, diarrhea or constipation, No rectal bleeding Genitourinary: No dysuria, hematuria, or frequency Musculoskeletal: No joint or muscle pain or swelling Neurologic: No headache, vertigo, dizziness or loss of consciousness Psychiatric: nor depression Skin: No rashes or easy bruising Endocrine: no increased thirst or abnormal weight change Allergic: no skin or latex allergy All other systems reviewed and normal GENERAL: The patient is awake, alert, and fully oriented, in no acute distress. HEAD: Normal with no signs of trauma. EYES: Pupils equal, round and reactive to light, extraocular movements intact, sclera anicteric, conjunctiva clear. EXTREMITIES: Normal range of motion, no edema. NEUROLOGICAL: Normal speech, normal gait. PSYCH: Depressed mood SKIN: Warm, Dry, normal turgor, no rashes or lesions noted. Assessment and plan: This is a 42-year-old female who comes in requesting a note for work and some sleeping medication. Patient has a history of anxiety and depression and says she is feeling depressed however she does not feel suicidal, does not have a plan to hurt herself and does not want to hurt herself. Patient was given a note for no work for the next 3 days until she can see her psychiatrist on Wednesday. I told patient I was not comfortable giving her any sleeping medication and that she could recheck to her psychiatrist in the morning to see if he would give her any additional medication to help her sleep prior to seeing her on Wednesday. Past History - Past Medical History Allergies/Adverse Reactions: Allergies shellfish derived Allergy (Intermediate, Verified 07/29/17 23:34) bupropion HCl [From Wellbutrin] Allergy (Verified 07/29/17 23:34) Rash Home Medications: Ambulatory Orders Albuterol Sulfate [Proair Respiclick] 90 mcg IH PRN PRN 05/10/17 Zolpidem Tartrate [Ambien] 10 mg PO HS 06/04/17 Clonidine HCl [Catapres -] 0.1 mg PO DAILY 06/11/17 Ibuprofen 800 mg PO DAILY 06/11/17 Omeprazole 40 mg PO DAILY 06/11/17 Sertraline HCl [Zoloft -] 50 mg PO DAILY 06/11/17 Clonazepam [Klonopin] 1 mg PO BID 07/20/17 LMP: 10/15/12 - Immunization History Tetanus Status: Unknown - Social History Smoking History: No Smoking Status: Current every day smoker Years of Tobacco Use: 24 Number of Cigarettes Per Day: 5 Alcohol Use: none Drug Use: none, pt denies *DC/Admit/Observation/Transfer Diagnosis at time of Disposition: Depression Qualifiers: Depression Type: unspecified Qualified Code(s): F32.9 - Major depressive disorder, single episode, unspecified - Discharge Dispostion Disposition: HOME Condition at time of disposition: Stable Admit: No - Patient Instructions Additional Instructions: Make sure you keep her appointment with your psychiatrist on Wednesday. Return to the emergency department immediately with ANY new, persistent or worsening symptoms. Continue any medications as previously prescribed by your physician. You should follow up with your primary doctor as soon as possible regarding today's emergency department visit. . Please make sure your doctor reviews the results of your emergency evaluation. Thank you for coming to the Emergency Department today for your care. It was a pleasure to see you today. Please note that your evaluation is INCOMPLETE until you follow-up with your doctor. - Post Discharge Activity Forms/Work/School Notes: Back to Work
[2017-07-29 23:46] VITALS: BP 115/80; PULSE 80; TEMP 98.5; BMI 37.0
== END 2017-07-30 00:09 | disposition home or self-care (01) ==
LOC: FER 23:32
DX: F32.9 Major depressive disorder, single episode, unspecified (principal); F17.210 Nicotine dependence, cigarettes, uncomplicated
CPT/HCPCS: 99282-25

== ENCOUNTER 2017-08-08 08:56 | Emergency (ER) | payer BC, OTHER ==
[2017-08-08] MEDS ORDERED: ONDANSETRON *ODT* 4 MG TABLET SL ONE (08:59)
--- NOTE | 2017-08-08 09:03 | PDOC ---
History of Present Illness - General Chief Complaint: Diarrhea Stated Complaint: diarrhea Time Seen by Provider: 08/08/17 08:59 History Source: Patient Exam Limitations: No Limitations - History of Present Illness Travel History: No Initial Comments: 08/08/17 09:00 42 y/o female with N/V/D since this morning. Doing a little better. Her son with same symptoms. Beleives to have had food poisoning. No abdominal pain. No back pain, fever or chills. No SOB. Quality: reports: mild Pain Radiation: reports: no radiation Past History - Past Medical History Allergies/Adverse Reactions: Allergies Allergy/AdvReac Type Severity Reaction Status Date / Time shellfish derived Allergy Intermediate Verified 08/08/17 09:14 bupropion HCl Allergy Rash Verified 08/08/17 09:14 [From Wellbutrin] Home Medications: Ambulatory Orders Albuterol Sulfate [Proair Respiclick] 90 mcg IH PRN PRN 05/10/17 Zolpidem Tartrate [Ambien] 10 mg PO HS 06/04/17 Clonidine HCl [Catapres -] 0.1 mg PO DAILY 06/11/17 Ibuprofen 800 mg PO DAILY 06/11/17 Omeprazole 40 mg PO DAILY 06/11/17 Sertraline HCl [Zoloft -] 50 mg PO DAILY 06/11/17 Clonazepam [Klonopin] 1 mg PO BID 07/20/17 Ondansetron [Zofran Odt -] 4 mg SL TID #10 od.tablet 08/08/17 Anemia: No Asthma: Yes (USES INHALER,PROAIR,LAST USED 2 WEEKS AGO) Cancer: No Cardiac Disorders: No CVA: No COPD: No CHF: No Dementia: No Diabetes: No GI Disorders: Yes (GERD) Disorders: No HTN: No Hypercholesterolemia: No Liver Disease: No Psychiatric Problems: Yes (DEPRESSION) Seizures: No Thyroid Disease: No - Surgical History Abdominal Surgery: Yes (VERTICAL SLEEVE GASTRECTOMY 2012, ABDOMINOPLASTY/AND REVISION, LIPO X2, LEXIE) Appendectomy: No Cardiac Surgery: No Cholecystectomy: No Lung Surgery: No Neurologic Surgery: No Orthopedic Surgery: Yes - Suicide/Smoking/Psychosocial Hx Smoking Status: No Smoking History: Current every day smoker Years of Tobacco Use: 24 Have you smoked in the past 12 months: No Number of Cigarettes Smoked Daily: 5 'Breaking Loose' booklet given: 07/30/17 Hx Alcohol Use: Yes Drug/Substance Use Hx: No Substance Use Type: None Hx Substance Use Treatment: No Review of Systems - Review of Systems Able to Perform ROS?: Yes Is the patient limited Polish proficient: No Constitutional: No: Chills, Fever HEENTM: No: Throat Pain Respiratory: No: Cough, Shortness of Breath ABD/GI: Yes: Diarrhea, Nausea, Vomiting : No: Burning Integumentary: No: Bruising, Rash All Other Systems: Reviewed and Negative *Physical Exam - Physical Exam General Appearance: Yes: Nourished, Appropriately Dressed. No: Apparent Distress HEENT: positive: EOMI, FEI, Normal ENT Inspection, Pharynx Normal Neck: positive: Trachea midline, Normal Thyroid, Supple. negative: Tender, Rigid Respiratory/Chest: positive: Lungs Clear, Normal Breath Sounds. negative: Chest Tender, Respiratory Distress Cardiovascular: positive: Regular Rhythm, Regular Rate, S1, S2 Vascular Pulses: Femoral (R): 4+, Femoral (L): 4+, Carotid (R): 4+, Carotid (L) : 4+, Dorsalis-Pedis (R): 4+, Doralis-Pedis (L): 4+ Gastrointestinal/Abdominal: positive: Normal Bowel Sounds, Flat, Soft. negative : Tender, Organomegaly, Pulsatile Mass Lymphatic: negative: Adenopathy, Tenderness, Other Musculoskeletal: positive: Normal Inspection. 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 NML intact, Fully Oriented, Alert, Normal Mood/ Affect, Normal Response, Motor Strength 5/5 ED Treatment Course - RADIOLOGY Radiology Studies Ordered: 08/08/17 09:26 Pt is doing well, will give Zofran as a prescription Continue fluids, rest, Tylenol If worsen return to ER Progress Note - Progress Note Progress Note: Pt appears to hve viral gastroenteritis vs food poisoning, will give Zofran, tolerating liquids *DC/Admit/Observation/Transfer Diagnosis at time of Disposition: Vomiting Qualifiers: Vomiting type: unspecified Vomiting Intractability: unspecified Nausea presence : with nausea Qualified Code(s): R11.2 - Nausea with vomiting, unspecified Food poisoning Qualifiers: Encounter type: initial encounter Injury intent: undetermined intent Qualified Code(s): T62.94XA - Toxic effect of unspecified noxious substance eaten as food , undetermined, initial encounter - Discharge Dispostion Disposition: HOME Condition at time of disposition: Good Admit: No - Referrals - Patient Instructions Printed Discharge Instructions: DI for Vomiting -- Adult Additional Instructions: Fluids, rest, Tylenol Zofran 4 mg ODT 1 tab every 8 hr as needed If worsen return to ER - Post Discharge Activity
[2017-08-08 09:14] VITALS: BP 123/73; PULSE 83; TEMP 98.3; BMI 26.2
== END 2017-08-08 10:13 | disposition home or self-care (01) ==
LOC: FER 08:56
DX: T63.94XA Toxic effect of contact with unspecified venomous animal, undetermined, initial encounter (principal); R11.2 Nausea with vomiting, unspecified; F17.210 Nicotine dependence, cigarettes, uncomplicated; Z98.84 Bariatric surgery status; F32.9 Major depressive disorder, single episode, unspecified; K21.9 Gastro-esophageal reflux disease without esophagitis; J45.909 Unspecified asthma, uncomplicated
CPT/HCPCS: 99281-25

== ENCOUNTER 2017-10-28 10:20 | Emergency (ER) | payer BC ==
[2017-10-28 10:31] VITALS: BP 124/86; PULSE 98; TEMP 98.9; BMI 32.9
--- NOTE | 2017-10-28 10:54 | PDOC ---
History of Present Illness - General Chief Complaint: Pain Stated Complaint: THROAT, NECK, JOINT PAINS, COUGH Time Seen by Provider: 10/28/17 10:42 History Source: Patient Exam Limitations: No Limitations - History of Present Illness Initial Comments: 10/28/17 10:51 42y F hx of asthma, Gerd, presents with complaings with msucle aches, throat pain for 2 days. Pt had an endometrial ablation on wednesday, and starting wednesday evening, she started feeing these symptoms. pt denies any associated fever/chills, coughing, n/v, abd pain, chest pain, CAMERON, vag bleeding, diarrhea. Pt states her pain is primarily in her upper back/arms/chest and it feels like a soreness. 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 Past History - Past Medical History Allergies/Adverse Reactions: Allergies Allergy/AdvReac Type Severity Reaction Status Date / Time shellfish derived Allergy Intermediate Hives Verified 10/28/17 10:24 bupropion HCl Allergy Rash Verified 10/28/17 10:24 [From Wellbutrin] Home Medications: Ambulatory Orders Albuterol Sulfate [Proair Respiclick] 90 mcg IH PRN PRN 05/10/17 Zolpidem Tartrate [Ambien] 12.5 mg PO HS 06/04/17 Clonidine HCl [Catapres -] 0.1 mg PO BID 06/11/17 Ibuprofen 600 mg PO DAILY 06/11/17 Omeprazole 40 mg PO DAILY 06/11/17 Sertraline HCl [Zoloft -] 100 mg PO DAILY 06/11/17 Clonazepam [Klonopin] 1 mg PO BID 07/20/17 Hydrocodone/Acetaminophen [Hydrocodon-Acetaminophn 10-325] 1 each PO TID Mometasone/Formoterol [Dulera 100 Mcg/5 Mcg Inhaler] 2 inh IH BID 10/28/17 Sulfasalazine 500 mg PO BID 10/28/17 Anemia: No Asthma: Yes (USES INHALER,PROAIR,LAST USED 2 WEEKS AGO) Cancer: No Cardiac Disorders: No CVA: No COPD: No CHF: No Dementia: No Diabetes: No GI Disorders: Yes (GERD) Disorders: No HTN: No Hypercholesterolemia: No Liver Disease: No Psychiatric Problems: Yes (DEPRESSION) Seizures: No Thyroid Disease: No Other medical history: RHEUMATOID ARTHRITIS - Surgical History Abdominal Surgery: Yes (VERTICAL SLEEVE GASTRECTOMY 2012, ABDOMINOPLASTY/AND REVISION, LIPO X2,) Appendectomy: No Cardiac Surgery: No Cholecystectomy: No Lung Surgery: No Neurologic Surgery: No Orthopedic Surgery: Yes - Suicide/Smoking/Psychosocial Hx Smoking Status: No Smoking History: Current every day smoker Years of Tobacco Use: 24 Have you smoked in the past 12 months: Yes Number of Cigarettes Smoked Daily: 12 Information on smoking cessation initiated: Yes 'Breaking Loose' booklet given: 10/28/17 Hx Alcohol Use: (occasional) Drug/Substance Use Hx: No Substance Use Type: None Hx Substance Use Treatment: No Review of Systems - Review of Systems Able to Perform ROS?: Yes Comments:: 10/28/17 11:05 Constitutional - +body aches no reported Fever, Chills, HEENT: +sore throat no reported vision changes, Respiratory: no reported cough, sob, hemoptysis Cardiac: no reported chest pain, palpitations, light headedness, leg swelling Abd/GI: no reported abd pain, nausea, vomiting, blood per rectum, melena, diarrhea : no reported dysuria, frequency, discharge Musculskelatal - no reported back pain, joint swelling skin - no reported bruising, erythema, rash neurological: no reported headache, numbness, focal weakness, tingling, ataxia, hematologic: no reported anemia, easy bruising, easy bleeding *Physical Exam - Vital Signs Last Vital Signs Temp Pulse Resp BP Pulse Ox 98.9 F 98 H 18 124/86 99 10/28/17 10:20 10/28/17 10:20 10/28/17 10:20 10/28/17 10:20 10/28/17 10:20 - Physical Exam Comments: 10/28/17 11:05 GENERAL: The patient is awake, alert, and fully oriented, Nontoxic - in no acute distress. HEAD: Normocephalic, atraumatic. EYES: extraocular movements intact, sclera anicteric, conjunctiva clear. ENT: Normal voice, Moist mucous membranes. mild erythema in posterior pharynx without exudates NECK: Normal range of motion, supple, no signs of meningusmus LUNGS: Breath sounds equal, clear to auscultation bilaterally. No wheezes, no rhonchi, no rales. HEART: Regular rate and rhythm, normal S1 and S2 without murmur, rub or gallop. ABDOMEN: Soft, nontender, normoactive bowel sounds. No guarding, no rebound. . No CVA tenderness EXTREMITIES: Normal range of motion, no edema. No clubbing or cyanosis. No cords, erythema, or tenderness. NEUROLOGICAL: No facial assymetry, Normal speech, moving all 4 extrmities aptonanusly and symmetrically PSYCH: Normal mood, normal affect. SKIN: Warm, Dry, normal turgor, Medical Decision Making - Medical Decision Making 10/28/17 11:07 suspect her sore throat may be seondary to her intubation her upper body aches may be secondary to repositioning during her intubation ( she states she was intubated in the middle of the procedure due to unclear rason ) will swab for flu as pt is concerned she may have flu will give tylenol for her aches 10/28/17 12:41 pt requested discharge prior to flu results flu is negative will notify the pt that her flu is ngative *DC/Admit/Observation/Transfer Diagnosis at time of Disposition: Sore throat, Body aches - Discharge Dispostion Disposition: HOME Condition at time of disposition: Improved Admit: No - Referrals Referrals: Jacob Figueredo MD [Primary Care Provider] - - Patient Instructions Additional Instructions: Take tylenol or motrin for your body aches. - Post Discharge Activity
[2017-10-28] MEDS ORDERED: ACETAMINOPHEN 325 MG TABLET (FP) PO ONE (11:07)
[2017-10-28] MEDS ORDERED: ACETAMINOPHEN 325 MG TABLET (FP) ONE (11:10)
== END 2017-10-28 11:35 | disposition home or self-care (01) ==
LOC: FER 10:20
DX: J02.9 Acute pharyngitis, unspecified (principal); M79.1 Myalgia
CPT/HCPCS: 87804; 99284-25

== ENCOUNTER 2017-11-27 10:32 | Emergency (ER) | payer BC ==
--- NOTE | 2017-11-27 11:11 | PDOC ---
History of Present Illness - General Chief Complaint: Pain Stated Complaint: rt hand and elbow pain Time Seen by Provider: 11/27/17 10:36 - History of Present Illness Initial Comments: 11/27/17 11:06 The patient is a 42 year old female with a history of Asthma, GERD, and RA who presents for evaluation of RA flare. The patient reports onset of swelling and pain with movement of her right hand beginning yesterday evening typical of her usual RA flares. She states that she is usually on prednisone 2.5mg TID as well as sulfasalazine 500mg for her RA and has a follow up appointment with her rhumatologist on 12/15. She otherwise denies fevers, chills, SOB, chest pain, nausea, vomiting, abdominal pain, or changes with urination or bowel movements. She denies any redness or warmth to the area as well. Past History - Past Medical History Allergies/Adverse Reactions: Allergies Allergy/AdvReac Type Severity Reaction Status Date / Time shellfish derived Allergy Intermediate Hives Verified 10/28/17 10:24 bupropion HCl Allergy Rash Verified 10/28/17 10:24 [From Wellbutrin] Home Medications: Ambulatory Orders Albuterol Sulfate [Proair Respiclick] 90 mcg IH PRN PRN 05/10/17 Zolpidem Tartrate [Ambien] 12.5 mg PO HS 06/04/17 Ibuprofen 600 mg PO DAILY 06/11/17 Omeprazole 40 mg PO DAILY 06/11/17 Sertraline HCl [Zoloft -] 100 mg PO DAILY 06/11/17 cloNIDine HCL [Catapres -] 0.1 mg PO BID 06/11/17 Clonazepam [Klonopin] 1 mg PO BID 07/20/17 Hydrocodone/Acetaminophen [Hydrocodon-Acetaminophn 10-325] 1 each PO TID Mometasone/Formoterol [Dulera 100 Mcg/5 Mcg Inhaler] 2 inh IH BID 10/28/17 Sulfasalazine 500 mg PO BID 10/28/17 Prednisone 5 mg PO TID #42 tablet 11/27/17 Anemia: No Asthma: Yes (USES INHALER,PROAIR,LAST USED 2 WEEKS AGO) Cancer: No Cardiac Disorders: No CVA: No COPD: No CHF: No Dementia: No Diabetes: No GI Disorders: Yes (GERD) Disorders: No HTN: No Hypercholesterolemia: No Liver Disease: No Psychiatric Problems: Yes (DEPRESSION) Seizures: No Thyroid Disease: No - Surgical History Abdominal Surgery: Yes (VERTICAL SLEEVE GASTRECTOMY 2012, ABDOMINOPLASTY/AND REVISION, LIPO X2,) Appendectomy: No Cardiac Surgery: No Cholecystectomy: No Lung Surgery: No Neurologic Surgery: No Orthopedic Surgery: Yes - Suicide/Smoking/Psychosocial Hx Smoking Status: No Smoking History: Current every day smoker Years of Tobacco Use: 24 Have you smoked in the past 12 months: Yes Number of Cigarettes Smoked Daily: 12 'Breaking Loose' booklet given: 10/28/17 Hx Alcohol Use: (occasional) Drug/Substance Use Hx: No Substance Use Type: None Hx Substance Use Treatment: No Review of Systems - Review of Systems Comments:: 11/27/17 11:10 Constitutional: No fevers, chills, fatigue, malaise HEENT: No Rhinorrhea, nasal congestion, visual changes Cardiovascular: No chest pain, syncope, palpitations, lightheadedness Respiratory: No Cough, SOB, Hemoptysis, Gastrointestinal: No Abdominal pain, Nausea, Vomiting, Constipation, Diarrhea, Melena Genitourinary: No Dysuria, Frequency, Urgency, Hesitancy, Hematuria, Flank pain Musculoskeletal: Pain to the right hand worse with movement. No Myalgia, Skin: No rashes, itching, bruising, pallor Neurologic: No Headache, Dizziness, Numbness, Weakness, or Tingling Psychiatric: No Hallucinations. No SI or HI *Physical Exam - Physical Exam Comments: 11/27/17 11:11 General Appearance: Nourished. No Apparent Distress HEENT: EOMI, FEI. No Pharyngeal Erythema, Tonsillar Exudate, Tonsillar Erythema Neck: No Cervical Lymphadenopathy Respiratory/Chest: Lungs Clear, Normal Breath Sounds. No Crackles, Rales, Rhonchi, Wheezing Cardiovascular: Regular Rhythm, Regular Rate. No Murmur, Gallops, Rubs Gastrointestinal/Abdominal: Normal Bowel Sounds, Soft. No Guarding, Rebound, Tenderness Musculoskeletal: No CVA Tenderness Extremity: Very mild swelling to the right hand with decreased ROM secondary to pain. No notable erythema or warmth. Normal Capillary Refill Integumentary: Normal Color, Dry, Warm Neurologic: Fully Oriented, Alert, Normal Mood/Affect, Normal Response, Medical Decision Making - Medical Decision Making 11/27/17 11:25 The patient is a 42 year old female with a history of Asthma, GERD, and RA who presents for evaluation of RA flare. Given the patient's physical exam and history, it is likely her symptoms are due to a RA flare although it appears to be either mild or early given her exam. We are comfortable discharging the patient with rhumatology follow up on 5mg of prednisone TID and NSAIDS. The patient will require a work note given her symptoms as well. We discussed the plan with the patient who voiced understanding and is agreeable with the plan. *DC/Admit/Observation/Transfer Diagnosis at time of Disposition: Rheumatoid arthritis flare - Discharge Dispostion Disposition: HOME Condition at time of disposition: Good Admit: No - Prescriptions Prescriptions: Prednisone 5 mg PO TID #42 tablet - Referrals - Patient Instructions Printed Discharge Instructions: DI for Rheumatoid Arthritis Additional Instructions: Please return to the ER if you experience concerning or worsening symptoms including worsening pain, fevers, or difficulty breathing. Your symptoms are likely due to a RA flare. We have sent a prescription to your pharmacy that you may burr picker if you need for prednisone 5mg that you may take 3 times a day. Please call to schedule a follow up appointment with your rheumatologies within 2-3 days to further discuss management of your symptoms. We have also provided you a work note as you recover from your symptoms. - Post Discharge Activity Forms/Work/School Notes: Back to Work
--- NOTE | 2017-11-27 11:26 | PDOC ---
Attending Attestation - Resident Resident Name: Tristan Hernandez - ED Attending Attestation I have performed the following: I have examined & evaluated the patient, The case was reviewed & discussed with the resident, I agree w/resident's findings & plan - HPI HPI: 11/27/17 11:24 42-year-old female with a history of rheumatoid arthritis presents with a flare of her arthritis with pain in the right hand, particularly at the third MCP joint. She is on multiple medications for rheumatoid arthritis, and is scheduled to see her grape grower next week. - Physicial Exam PE: 11/27/17 11:25 Examination is notable for mild swelling at the right third MCP joint. There is no erythema, and no increased warmth. The wrist is without swelling or increased warmth. 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 The other joints are all normal. Lungs are clear. Heart is regular rhythm without gallop or murmur. Abdomen is nontender. - Medical Decision Making 11/27/17 11:25 Impression: Flare up of rheumatoid arthritis with right hand pain. Patient is taking prednisone 2.5 mg 3 times a day. She is also on long-term disease modulating therapy. I advised her of the options for acute treatment. She has decided she would like to go on prednisone 5 mg 3 times a day for the next 2 weeks. She will follow-up with her grape grower as scheduled.
[2017-11-27 11:39] VITALS: BP 143/96; PULSE 109; TEMP 99.2; BMI 29.0
== END 2017-11-27 11:45 | disposition home or self-care (01) ==
LOC: FER 10:32
DX: M06.841 Other specified rheumatoid arthritis, right hand (principal); J45.909 Unspecified asthma, uncomplicated; K21.9 Gastro-esophageal reflux disease without esophagitis; F32.9 Major depressive disorder, single episode, unspecified; Z98.84 Bariatric surgery status
CPT/HCPCS: 99281-25

== ENCOUNTER 2017-12-28 18:35 | Emergency (ER) | payer BC ==
[2017-12-28 18:50] VITALS: TEMP 98.9; BMI 32.1
--- NOTE | 2017-12-28 19:07 | PDOC ---
History of Present Illness - General History Source: Patient Exam Limitations: No Limitations - History of Present Illness Initial Comments: 12/28/17 20:20 The patient is a 42 year old female with a significant PMH of Rheumatoid arthritis, Fibromyalgia, depression, asthma, obesity, and GERD, who presents to the emergency department with shoulder pain, back pain and inner thigh pain beginning earlier today. The patient states that her shoulder pain is similar to associated pain from her fibromyalgia. She denies any recent injury or trauma. She reports that her pain is constant. The patient reports that she recently started on a new medication (Gabapentin) 1 week ago for the fibromyalgia but reports minimal improvement. The patient also complains of intermittent chest pain that has been going on for about a month. She reports that her chest pain is left sided and is moderately semi-sharp and lasts for a little while before resolving on its own. The patient states that the last time she had the chest pain was this morning but she states she does not have the chest pain at presentation. She states that her chest pain is associated with stress. The patient reports increased stressors at home including her brother passing away last month. The patient states that she had the exact same chest pain 2 years ago where after she followed up with her upper marker. She reports that she completed a stress test at the time of visit with her upper marker and findings were normal. The patient reports that she has an upcoming doctors appointment in January regarding her recurrent RA flare ups (patient states that she has had 16 flare ups since ). The patient denies shortness of breath, headache and dizziness. Denies fever, chills, nausea, vomit, diarrhea and constipation. Denies dysuria, frequency, urgency and hematuria. 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 Patient reports a history of cigarette smoking . PCP: Jacob Figueredo <Yadira Frias - Last Filed: 12/28/17 20:28> <Ting Pop - Last Filed: 12/29/17 00:31> - General Chief Complaint: Pain Stated Complaint: "GENERALIZED ACHINESS" Time Seen by Provider: 12/28/17 19:07 Past History <Yadira Frias - Last Filed: 12/28/17 20:28> - Past Medical History Anemia: No Asthma: Yes (USES INHALER,PROAIR,LAST USED 2 WEEKS AGO) Cancer: No Cardiac Disorders: No CVA: No COPD: No CHF: No Dementia: No Diabetes: No GI Disorders: Yes (GERD) Disorders: No HTN: No Hypercholesterolemia: No Liver Disease: No Psychiatric Problems: Yes (DEPRESSION) Seizures: No Thyroid Disease: No - Surgical History Abdominal Surgery: Yes (VERTICAL SLEEVE GASTRECTOMY 2012, ABDOMINOPLASTY/AND REVISION, LIPO X2,) Appendectomy: No Cardiac Surgery: No Cholecystectomy: No Lung Surgery: No Neurologic Surgery: No Orthopedic Surgery: Yes - Suicide/Smoking/Psychosocial Hx Smoking Status: No Smoking History: Current every day smoker Years of Tobacco Use: 24 Have you smoked in the past 12 months: Yes Number of Cigarettes Smoked Daily: 19 Information on smoking cessation initiated: Yes 'Breaking Loose' booklet given: 12/28/17 Hx Alcohol Use: (occasional) Drug/Substance Use Hx: No Substance Use Type: None Hx Substance Use Treatment: No <Ting Pop - Last Filed: 12/29/17 00:31> - Past Medical History Allergies/Adverse Reactions: Allergies Allergy/AdvReac Type Severity Reaction Status Date / Time shellfish derived Allergy Intermediate Hives Verified 12/28/17 18:38 bupropion HCl Allergy Rash Verified 12/28/17 18:38 [From Wellbutrin] Home Medications: Ambulatory Orders Albuterol Sulfate [Proair Respiclick] 90 mcg IH PRN PRN 05/10/17 Zolpidem Tartrate [Ambien] 12.5 mg PO HS 06/04/17 Omeprazole 40 mg PO DAILY 06/11/17 Sertraline HCl [Zoloft -] 100 mg PO DAILY 06/11/17 cloNIDine HCL [Catapres -] 0.1 mg PO BID 06/11/17 Clonazepam [Klonopin] 1 mg PO BID 07/20/17 Mometasone/Formoterol [Dulera 100 Mcg/5 Mcg Inhaler] 2 inh IH BID 10/28/17 Sulfasalazine 500 mg PO BID 10/28/17 Review of Systems - Review of Systems Able to Perform ROS?: Yes Comments:: 12/28/17 20:20 CONSTITUTIONAL: Absent: fever, chills, diaphoresis, generalized weakness, malaise, loss of appetite HEENT: Absent: rhinorrhea, nasal congestion, throat pain, throat swelling, difficulty swallowing, mouth swelling, ear pain, eye pain, visual Changes CARDIOVASCULAR: Present(+) chest pain Absent: syncope, palpitations, irregular heart rate, lightheadedness, peripheral edema RESPIRATORY: Absent: cough, shortness of breath, dyspnea with exertion, orthopnea, wheezing, stridor, hemoptysis GASTROINTESTINAL: Absent: abdominal pain, abdominal distension, nausea, vomiting, diarrhea, constipation, melena, hematochezia GENITOURINARY: Absent: dysuria, frequency, urgency, hesitancy, hematuria, flank pain, genital pain MUSCULOSKELETAL: Present(+) Shoulder pain. Back pain, thigh pain. SKIN: Absent: rash, itching, pallor HEMATOLOGIC/IMMUNOLOGIC: Absent: easy bleeding, easy bruising, lymphadenopathy, frequent infections ENDOCRINE: Absent: unexplained weight gain, unexplained weight loss, heat intolerance, cold intolerance NEUROLOGIC: Absent: headache, focal weakness or paresthesias, dizziness, unsteady gait, seizure, mental status changes, bladder or bowel incontinence PSYCHIATRIC: Absent: anxiety, depression, suicidal or homicidal ideation, hallucinations. <Yadira Frias - Last Filed: 12/28/17 20:28> *Physical Exam - Vital Signs Last Vital Signs Temp Pulse Resp BP Pulse Ox 98.9 F 98 H 18 144/98 97 12/28/17 18:35 12/28/17 18:35 12/28/17 18:35 12/28/17 18:35 12/28/17 18:35 - Physical Exam Comments: 12/28/17 20:21 GENERAL: Well developed, well nourished. Awake and alert. No acute distress. HEENT: Normocephalic, atraumatic. PERRLA, EOMI. No conjunctival pallor. Sclera are non- icteric. Moist mucous membranes. Oropharynx is clear. NECK: Supple. Full ROM. No JVD. Carotid pulses 2+ and symmetric, without bruits. No thyromegaly. No lymphadenopathy. CARDIOVASCULAR: (+) Tachycardic to 112 bpm regular No murmurs, rubs, or gallops. Distal pulses are 2+ and symmetric. PULMONARY: No evidence of respiratory distress. Lungs clear to auscultation bilaterally. No wheezing, rales or rhonchi. ABDOMINAL: Soft. Non-tender. Non-distended. No rebound or guarding. No organomegaly. Normoactive bowel sounds. MUSCULOSKELETAL Normal range of motion at all joints. No bony deformities or tenderness. No CVA tenderness. EXTREMITIES: No cyanosis. No clubbing. No edema. No calf tenderness. SKIN: Warm and dry. Normal capillary refill. No rashes. No jaundice. NEUROLOGICAL: Alert, awake, appropriate. Cranial nerves 2-12 intact. No deficits to light touch and temperature in face, upper extremities and lower extremities. No motor deficits in the in face, upper extremities and lower extremities. Normoreflexic in the upper and lower extremities. Normal speech. Toes are down- going bilaterally. Gait is normal without ataxia. PSYCHIATRIC: Cooperative. Good eye contact. Appropriate mood and affect. <Yadira Frias - Last Filed: 12/28/17 20:28> - Vital Signs Last Vital Signs Temp Pulse Resp BP Pulse Ox 98.9 F 98 H 18 144/98 97 12/28/17 18:35 12/28/17 18:35 12/28/17 18:35 12/28/17 18:35 12/28/17 18:35 <Ting Pop - Last Filed: 12/29/17 00:31> ED Treatment Course - LABORATORY CBC & Chemistry Diagram: 12/28/17 20:00 12/28/17 20:00 - ADDITIONAL ORDERS Additional order review: Laboratory Results 12/28/17 19:30 Urine HCG, Qual Negative - Medications Given in the ED: ED Medications Discontinued Medications Generic Name Dose Route Start Last Admin Trade Name Freq PRN Reason Stop Dose Admin Ketorolac Tromethamine 30 mg 12/28/17 19:29 12/28/17 20:12 Toradol Injection - IVPUSH 12/28/17 19:30 30 mg ONCE ONE Administration <Yadira Frias - Last Filed: 12/28/17 20:28> - LABORATORY CBC & Chemistry Diagram: 12/28/17 20:00 12/28/17 20:00 <Ting Pop - Last Filed: 12/29/17 00:31> Medical Decision Making - Medical Decision Making 12/28/17 19:33 Pt with hx fibromyalgia, depression, RA p/w myalgias x months and CP x past few weeks. CP intermittent without any associated sxs. Is tachycardic in the ER today with HR 112 on exam. No BCPs, no recent travel but cannot PERC out with the tachycardia. Myalgias likely related to fibromyalgia, was recently started on gabapentin. - labs including d dimer, trop - EKG, CXR - toradol - reassess 12/28/17 22:09 D dimer elevated. In setting of CP and tachycardia - will proceed with CTA chest to r/o PE. K 3.1 - repleted with 40mg of PO KCl. 12/29/17 00:16 CTA Chest with 1cm R lower lobe nodule - pt already aware and this is being followed by her PMD. Also with faint apparent filing defects R lower lobe artery , suspect artifact rather than PE. No aortic dissection/aneurysm, no pna or pleural effusions. Minimal emphysematous changes. Will recommend that pt follows up with her PMD as planned within the week. Informed of the results of CT. Also informed of her elevated BP today which should be repeated on her next visit. Advised to decrease salt intake in her diet. Discharged home. <Ting Pop - Last Filed: 12/29/17 00:31> *DC/Admit/Observation/Transfer - Attestations Scribe Attestion: 12/28/17 20:21 Documentation prepared by Yadira Frias, acting as medical assisting instructor for Ting Pop DO, MD <Yadira Frias - Last Filed: 12/28/17 20:28> - Discharge Dispostion Admit: No <Ting Pop - Last Filed: 12/29/17 00:31> Diagnosis at time of Disposition: Chest pain - Discharge Dispostion Disposition: HOME Condition at time of disposition: Stable - Referrals Referrals: Jacob Figueredo MD [Primary Care Provider] - - Patient Instructions Printed Discharge Instructions: DI for Chest Pain Additional Instructions: You were seen in the ER for pain most likely related to your rheumatoid arthritis as well as your fibromyalgia. You had a CT of your chest because you were having chest pain with a fast heart rate with an abnormal blood test (d dimer) - we were checking for blood clots. At this time, it is unlikely that you have a blood clot. You do however have a nodule in your lung which needs to be followed and may require more investigation by your primary care doctor. Return to the ER if your symptoms worsen - more chest pain, shortness of breath or other concerning symptoms. Make sure to follow up with your primary care doctor as planned. - Post Discharge Activity Forms/Work/School Notes: Back to Work
[2017-12-28] MEDS ORDERED: KETOROLAC TROMETHAMINE 30 MG/1 ML VIAL IVPUSH ONE (19:29)
[2017-12-28] MEDS ORDERED: KETOROLAC TROMETHAMINE 30 MG/1 ML VIAL ONE (20:09)
[2017-12-28 20:28] LABS: HEMATOCRIT 36.4 % (32.4-45.2); HEMOGLOBIN 11.9 GM/dl (10.7-15.3); MCH 28.7 pg (25.7-33.7); MCHC 32.6 g/dl (32.0-36.0); MEAN CELL VOLUME 88.1 fl (80-96); MEAN PLT VOLUME 8.9 fl (7.5-11.1); PLATELET COUNT 288 K/MM3 (134-434); RBC 4.13 M/mm3 (3.60-5.2); RDW 17.7 % (11.6-15.6); WHITE BLOOD COUNT 5.6 K/mm3 (4.0-10.8)
[2017-12-28 20:29] LABS: ALBUMIN 3.3 g/dl (3.5-5.0); ALK PHOS 82 U/L (32-92); ANION GAP 5 (8-16); BLOOD UREA NITROGEN 11 mg/dl (7-18); CALCIUM 8.5 mg/dl (8.4-10.2); CHLORIDE 106 mmol/L (98-107); CO2 20 mmol/L (22-28); CREATININE 0.8 mg/dl (0.6-1.3); GLUCOSE,RANDOM 118 mg/dl (74-106); POTASSIUM 3.1 mmol/L (3.5-5.1); SGOT/AST 22 U/L (10-42); SGPT/ALT 19 U/L (10-40); SODIUM 131 mmol/L (136-145); TOT PROT 6.6 g/dl (6.4-8.3)
[2017-12-28 20:44] LABS: BILIRUBIN,TOTAL < 0.5 mg/dl (0.2-1.0)
[2017-12-28 21:02] LABS: ANISOCYTOSIS 1+; MACROCYTOSIS 1+; PLATELET ESTIMATE ADEQUATE; TARGET CELLS FEW
[2017-12-28] MEDS ORDERED: POTASSIUM CHLORIDE TABS 20 MEQ TABLET.ER (FP) PO ONE ×2 (21:34→21:40)
[2017-12-28 23:37] VITALS: BP 152/102; PULSE 82
--- NOTE | 2017-12-29 13:05 | EKG ---
Test Reason : Blood Pressure : / mmHG Vent. Rate : 098 BPM Atrial Rate : 098 BPM P-R Int : 122 ms QRS Dur : 076 ms QT Int : 364 ms P-R-T Axes : 027 -17 028 degrees QTc Int : 464 ms NORMAL SINUS RHYTHM MINIMAL VOLTAGE CRITERIA FOR LVH, MAY BE NORMAL VARIANT BORDERLINE ECG WHEN COMPARED WITH ECG OF 29-JUN-2017 13:13, NO SIGNIFICANT CHANGE WAS FOUND Confirmed by PETER ANDRADE MD ([id number]) on 12/29/2017 1:05:04 PM Referred By: DR MENSAH Confirmed By:PETER ANDRADE MD
== END 2017-12-29 00:34 | disposition home or self-care (01) ==
LOC: FER 18:35
PROC: 3E0333Z Introduction of Anti-inflammatory into Peripheral Vein, Percutaneous Approach (ICD-10-PCS; principal; 2017-12-28)
DX: R07.9 Chest pain, unspecified (principal); M79.7 Fibromyalgia; J45.909 Unspecified asthma, uncomplicated; K21.9 Gastro-esophageal reflux disease without esophagitis; F41.9 Anxiety disorder, unspecified; F17.210 Nicotine dependence, cigarettes, uncomplicated; Z98.84 Bariatric surgery status
CPT/HCPCS: 36415; 71046-TC-FY; 71275-TC; 80053; 82550; 84484; 84702; 84703; 85025; 85379; 93005; 99284-25

== ENCOUNTER 2018-01-09 12:04 | Emergency (ER) | payer BC ==
[2018-01-09 12:20] VITALS: BP 133/92; TEMP 99.5; BMI 32.1
[2018-01-09] MEDS ORDERED: ALBUTEROL SO4 18 GM HFA INHALER IH PRN (13:04)
--- NOTE | 2018-01-09 13:04 | PDOC ---
History of Present Illness - General Chief Complaint: Respiratory Stated Complaint: COUGH, SOB Time Seen by Provider: 01/09/18 12:05 History Source: Patient, Old Records Exam Limitations: No Limitations - History of Present Illness Initial Comments: 01/09/18 13:00 CHIEF COMPLAINT: Persistent asthma symptoms HISTORY OF PRESENT ILLNESS: This is a 43-year-old female with a history of rheumatoid arthritis, gastroesophageal reflux, and asthma. She states she recently saw her primary physician for increased asthma symptoms. She was given a prescription for albuterol and prednisone. She filled her prednisone, which she also takes for her rheumatoid arthritis, but she was unable to fill her albuterol prescription due to a 50 dollar co-pay. She is unsure of her current prednisone dose. She is taking 2 tablets a day. There is no fever or chills. There is positive cough with wheezing. Deep inspiration causes cough. There is no sputum production. There is no chest pain. There is no shortness of breath. REVIEW OF SYSTEMS: GENERAL/CONSTITUTIONAL: No fever or chills. No weakness. No weight change. HEAD, EYES, EARS, NOSE AND THROAT: No change in vision. No ear pain or discharge. No sore throat. CARDIOVASCULAR: No chest pain or shortness of breath. RESPIRATORY: Positive wheezing with cough. No sputum production or hemoptysis. GASTROINTESTINAL: No nausea, vomiting, diarrhea or constipation. No rectal bleeding. GENITOURINARY: No dysuria, frequency, or change in urination. MUSCULOSKELETAL: Positive occasional joint pains from rheumatoid arthritis. Not active currently. Positive fibromyalgia symptoms with occasional aching. SKIN AND BREASTS: No rash or easy bruising. NEUROLOGIC: No headache, vertigo, loss of consciousness, or loss of sensation. PSYCHIATRIC: No depression or anxiety. ENDOCRINE: No increased thirst. No abnormal weight change. HEMATOLOGIC/LYMPHATIC: No anemia, easy bleeding, or history of blood clots. ALLERGIC/IMMUNOLOGIC: No hives or skin allergy. No latex allergy. Past History - Past Medical History Allergies/Adverse Reactions: Allergies Allergy/AdvReac Type Severity Reaction Status Date / Time shellfish derived Allergy Intermediate Hives Verified 01/09/18 12:04 bupropion HCl Allergy Rash Verified 01/09/18 12:04 [From Wellbutrin] Home Medications: Ambulatory Orders Albuterol Sulfate [Proair Respiclick] 90 mcg IH PRN PRN 05/10/17 Zolpidem Tartrate [Ambien] 12.5 mg PO HS 06/04/17 Omeprazole 40 mg PO DAILY 06/11/17 Sertraline HCl [Zoloft -] 100 mg PO DAILY 06/11/17 cloNIDine HCL [Catapres -] 0.1 mg PO BID 06/11/17 Clonazepam [Klonopin] 1 mg PO BID 07/20/17 Mometasone/Formoterol [Dulera 100 Mcg/5 Mcg Inhaler] 2 inh IH BID 10/28/17 Sulfasalazine 500 mg PO BID 10/28/17 Prednisone [Deltasone] 40 mg PO DAILY #10 tablet 01/09/18 Anemia: No Asthma: Yes (USES INHALER,PROAIR, was unable to refill inhaler) Cancer: No Cardiac Disorders: No CVA: No COPD: No CHF: No Dementia: No Diabetes: No GI Disorders: Yes (GERD) Disorders: No HTN: No Hypercholesterolemia: No Liver Disease: No Psychiatric Problems: Yes (DEPRESSION) Seizures: No Thyroid Disease: No - Surgical History Abdominal Surgery: Yes (VERTICAL SLEEVE GASTRECTOMY 2011, ABDOMINOPLASTY/AND REVISION, LIPO X2,) Appendectomy: No Cardiac Surgery: No Cholecystectomy: No Lung Surgery: No Neurologic Surgery: No Orthopedic Surgery: Yes - Suicide/Smoking/Psychosocial Hx Smoking Status: No Smoking History: Current every day smoker Years of Tobacco Use: 24 Have you smoked in the past 12 months: Yes Number of Cigarettes Smoked Daily: 19 Information on smoking cessation initiated: Yes 'Breaking Loose' booklet given: 01/09/18 Hx Alcohol Use: (occasional) Drug/Substance Use Hx: No Substance Use Type: None Hx Substance Use Treatment: No *Physical Exam - Vital Signs Last Vital Signs Temp Pulse Resp BP Pulse Ox 99.5 F 102 H 20 133/92 95 01/09/18 12:05 01/09/18 12:05 01/09/18 12:05 01/09/18 12:05 01/09/18 12:05 - Physical Exam Comments: 01/09/18 13:02 GENERAL: The patient is awake, alert, and fully oriented, in no acute distress. Patient is breathing easily, no increased work of breathing, no audible wheezing from a distance. HEAD: Normal with no signs of trauma. EYES: Pupils equal, round and reactive to light, extraocular movements intact, sclera anicteric, conjunctiva clear. ENT: Ears normal, nares patent, oropharynx clear without exudates. Moist mucous membranes. NECK: Normal range of motion, supple without lymphadenopathy, JVD, or masses. LUNGS: Breath sounds equal bilaterally with good air entry. Occasional scattered expiratory wheezes, more anterior than posterior. No crackles. No splinting. Rare cough. Nonproductive. HEART: Regular rate and rhythm, normal S1 and S2 without murmur, rub or gallop. ABDOMEN: Soft, nontender, normoactive bowel sounds. No guarding, no rebound. No masses. EXTREMITIES: Normal range of motion, no edema. No clubbing or cyanosis. No cords, erythema, or tenderness. No joint deformities. No joint swelling. NEUROLOGICAL: Cranial nerves II through XII grossly intact. Normal speech, normal gait. PSYCH: Normal mood, normal affect. SKIN: Warm, Dry, normal turgor, no rashes or lesions noted. Medical Decision Making - Medical Decision Making 01/09/18 13:07 Patient is a 43-year-old woman with a history of asthma, she presents with persistent asthma symptoms for a week. She has been taking some prednisone, but she was unable to get albuterol due to a $50 co-pay. She is requesting assistance with an albuterol inhaler. Examination is notable for mild asthma. Air entry is good, breathing is not labored, patient is ambulatory throughout the ED with no dyspnea. Impression: Persistent asthma Plan: Albuterol inhaler, 2 puffs given in the ED, an inhaler given to go home. Prednisone prescription 40 mg daily for 5 days, then resume prior rheumatoid arthritis dose Work note given. Patient stable for discharge with no signs of serious asthma. *DC/Admit/Observation/Transfer Diagnosis at time of Disposition: Asthma Qualifiers: Asthma severity: mild Asthma persistence: persistent Asthma complication type: with acute exacerbation Qualified Code(s): J45.31 - Mild persistent asthma with (acute) exacerbation - Discharge Dispostion Disposition: HOME Condition at time of disposition: Stable Admit: No - Prescriptions Prescriptions: Prednisone [Deltasone] 40 mg PO DAILY #10 tablet - Referrals - Patient Instructions Printed Discharge Instructions: DI for Asthma -- Adult Additional Instructions: Wendy, you were treated today for mild persistent asthma. Use the albuterol inhaler 2 puffs every 4 hours as needed for wheezing. Take prednisone 40 mg every morning (2 tablets of 20 mg each) for 5 days, then resume your normal dose of prednisone for your rheumatoid arthritis. Follow-up with your primary care physician this week. Return to the emergency department for any severe or progressive symptoms. - Post Discharge Activity
[2018-01-09] MEDS ORDERED: predniSONE 20 MG TABLET (UD) PO ONE (13:05)
[2018-01-09] MEDS ORDERED: predniSONE 20 MG TABLET (UD) ONE (13:07)
[2018-01-09 13:27] VITALS: PULSE 97
== END 2018-01-09 13:25 | disposition home or self-care (01) ==
LOC: FER 12:04
DX: J45.31 Mild persistent asthma with (acute) exacerbation (principal); F17.210 Nicotine dependence, cigarettes, uncomplicated; F32.9 Major depressive disorder, single episode, unspecified; K21.9 Gastro-esophageal reflux disease without esophagitis
CPT/HCPCS: 99283-25

== ENCOUNTER 2018-01-12 21:11 | Emergency (ER) | payer BC ==
[2018-01-12 21:18] VITALS: BP 133/87; TEMP 99.1; BMI 32.4
--- NOTE | 2018-01-12 22:00 | PDOC ---
History of Present Illness - General Chief Complaint: Respiratory Stated Complaint: GENERALIZED BODY PAIN Time Seen by Provider: 01/12/18 21:49 History Source: Patient Exam Limitations: No Limitations - History of Present Illness Initial Comments: 01/12/18 23:58 This is a 43-year-old female who has history of rheumatoid arthritis, fibromyalgia and asthma and was here a few days ago because she ran out of her inhaler. Patient was started on prednisone at that time and given in that there inhaler. Patient said she's continued to have some coughing and shortness of breath. Patient also is complaining of extreme body fatigue and comes in for evaluation. Patient denies any fevers or chills. Patient went to an urgent care center today and had blood work and they called her this evening he told her to come to the ER because she had an elevated white blood cell count. PAST MEDICAL HISTORY: As per history of present illness PAST SURGICAL HISTORY: no significant history FAMILY HISTORY: no pertinant history SOCIAL HISTORY: Pt lives with family and is employed. MEDICATIONS: reviewed ALLERGIES: As per nursing notes Review of Systems General: No fevers or chills, no weakness, no weight loss HEENT: No change in vision. No sore throat,. No ear pain CardioVascular: No chest pain or shortness of breath Respiratory:+ cough, + wheezing. Gastrointestinal: no nausea, vomitting, diarrhea or constipation, No rectal bleeding Genitourinary: No dysuria, hematuria, or frequency Musculoskeletal: No joint or muscle pain or swelling Neurologic: No headache, vertigo, dizziness or loss of consciousness Psychiatric: nor depression Skin: No rashes or easy bruising Endocrine: no increased thirst or abnormal weight change Allergic: no skin or latex allergy All other systems reviewed and normal Exam: General: Well-nourished well-developed individual, no acute distress HEENT: Throat: Normal, tonsils normal, no erythema or exudate Neck: Supple, no meningeal signs, no lymphadenopathy Eyes::Pupils equal reactive and round, extraocular motion intact Chest: Nontender to palpation Cardiac: S1-S2 normal, regular rate and rhythm, no murmurs rubs or gallops Respiratory: Lungs clear to auscultation bilateral Abdomen: Soft, nondistended, normal bowel sounds, nontender to palpation diffusely Extremities: Warm, dry, no cyanosis, clubbing, or edema Skin: No rashes Neuro: Alert and oriented x3, CN II - XII intact, nonfocal exam with normal strength, normal sensation, normal reflexes, normal gait, Psych: Normal mood and affect Chest x-ray: No acute infiltrate however questionable bronchitis. Patient does have a mildly elevated white count of 14.6 but no left shift. Assessment and plan: This is a 43-year-old female with fatigue cough and some congestion. Patient has a white count that is mildly elevated and x-ray that shows probable bronchitis. Patient says she has her inhaler at home and is on prednisone already. Patient will be started on Zithromax and discharged home. Patient will follow-up with her primary care doctor Past History - Past Medical History Allergies/Adverse Reactions: Allergies Allergy/AdvReac Type Severity Reaction Status Date / Time shellfish derived Allergy Intermediate Hives Verified 01/09/18 12:04 bupropion HCl Allergy Rash Verified 01/09/18 12:04 [From Wellbutrin] Home Medications: Ambulatory Orders Albuterol Sulfate [Proair Respiclick] 90 mcg IH PRN PRN 05/10/17 Zolpidem Tartrate [Ambien] 12.5 mg PO HS 06/04/17 Omeprazole 40 mg PO DAILY 06/11/17 Sertraline HCl [Zoloft -] 100 mg PO DAILY 06/11/17 cloNIDine HCL [Catapres -] 0.1 mg PO BID 06/11/17 Clonazepam [Klonopin] 1 mg PO BID 07/20/17 Mometasone/Formoterol [Dulera 100 Mcg/5 Mcg Inhaler] 2 inh IH BID 10/28/17 Sulfasalazine 500 mg PO BID 10/28/17 Prednisone [Deltasone] 40 mg PO DAILY #10 tablet 01/09/18 Azithromycin 250 mg PO DAILY #4 tablet 01/13/18 Anemia: No Asthma: Yes (USES INHALER,PROAIR, was unable to refill inhaler) Cancer: No Cardiac Disorders: No CVA: No COPD: No CHF: No Dementia: No Diabetes: No GI Disorders: Yes (GERD) Disorders: No HTN: No Hypercholesterolemia: No Liver Disease: No Psychiatric Problems: Yes (DEPRESSION) Seizures: No Thyroid Disease: No - Surgical History Abdominal Surgery: Yes (VERTICAL SLEEVE GASTRECTOMY 2012, ABDOMINOPLASTY/AND REVISION, LIPO X2,) Appendectomy: No Cardiac Surgery: No Cholecystectomy: No Lung Surgery: No Neurologic Surgery: No Orthopedic Surgery: Yes - Suicide/Smoking/Psychosocial Hx Smoking Status: No Smoking History: Unknown if ever smoked Years of Tobacco Use: 24 Have you smoked in the past 12 months: Yes Number of Cigarettes Smoked Daily: 10 Information on smoking cessation initiated: Yes 'Breaking Loose' booklet given: 01/09/18 Hx Alcohol Use: No Drug/Substance Use Hx: No Substance Use Type: None Hx Substance Use Treatment: No *Physical Exam - Vital Signs Last Vital Signs Temp Pulse Resp BP Pulse Ox 99.1 F 123 H 14 133/87 98 01/12/18 21:15 01/12/18 21:15 01/12/18 21:15 01/12/18 21:15 01/12/18 21:15 ED Treatment Course - LABORATORY CBC & Chemistry Diagram: 01/12/18 22:30 01/12/18 23:00 *DC/Admit/Observation/Transfer Diagnosis at time of Disposition: Bronchitis - Discharge Dispostion Disposition: HOME Condition at time of disposition: Good - Referrals Referrals: Edi Hendrix MD [Primary Care Provider] - - Patient Instructions Additional Instructions: Take Tylenol or Motrin as needed for pain or fevers. Take azithromycin 1 tablet a day for the next 4 days you're given a first dose here in the ER so you next dose would be tomorrow evening. Continue all the rest of your medication as prescribed. Return to the emergency department immediately with ANY new, persistent or worsening symptoms. Continue any medications as previously prescribed by your physician. You should follow up with your primary doctor as soon as possible regarding today's emergency department visit. . Please make sure your doctor reviews the results of your emergency evaluation. Thank you for coming to the Emergency Department today for your care. It was a pleasure to see you today. Please note that your evaluation is INCOMPLETE until you follow-up with your doctor. - Post Discharge Activity
[2018-01-12] MEDS ORDERED: SODIUM CHLORIDE 1,000 ML IV ONE (22:05)
[2018-01-12 22:53] LABS: BASO % 2.8 % (0-2.0); EOS % 0.5 % (0-4.5); HEMATOCRIT 36.4 % (32.4-45.2); HEMOGLOBIN 11.9 GM/dl (10.7-15.3); LYMPH % 14.3 % (8-40); MCH 28.6 pg (25.7-33.7); MCHC 32.6 g/dl (32.0-36.0); MEAN CELL VOLUME 87.8 fl (80-96); MEAN PLT VOLUME 8.7 fl (7.5-11.1); MONO % 5.2 % (3.8-10.2); NEUT % 77.2 % (42.8-82.8); PLATELET COUNT 328 K/MM3 (134-434); RBC 4.15 M/mm3 (3.60-5.2); RDW 17.2 % (11.6-15.6); WHITE BLOOD COUNT 14.6 K/mm3 (4.0-10.8)
[2018-01-12 23:19] LABS: ALBUMIN 3.3 g/dl (3.5-5.0); ALK PHOS 92 U/L (32-92); ANION GAP 9 (8-16); BLOOD UREA NITROGEN 13 mg/dl (7-18); CALCIUM 8.4 mg/dl (8.4-10.2); CHLORIDE 102 mmol/L (98-107); CO2 21 mmol/L (22-28); CREATININE 0.9 mg/dl (0.6-1.3); GLUCOSE,RANDOM 101 mg/dl (74-106); POTASSIUM 3.5 mmol/L (3.5-5.1); SGOT/AST 24 U/L (10-42); SGPT/ALT 13 U/L (10-40); SODIUM 132 mmol/L (136-145); TOT PROT 7.1 g/dl (6.4-8.3)
[2018-01-12 23:31] LABS: BILIRUBIN,TOTAL 0.5 mg/dl (0.2-1.0)
[2018-01-12] MEDS ORDERED: MAG HYDROX/AL HYDROX/SIMETH 30 ML UNIT-DOSE CUP PO ONE (23:51)
[2018-01-12] MEDS ORDERED: MAG HYDROX/AL HYDROX/SIMETH 30 ML UNIT-DOSE CUP ONE (23:52)
[2018-01-12] MEDS ORDERED: AZITHROMYCIN 500 MG TABLET PO ONE (23:57)
[2018-01-13] MEDS ORDERED: AZITHROMYCIN 500 MG TABLET ONE (00:01)
[2018-01-13] MEDS ORDERED: ACETAMINOPHEN 325 MG TABLET (FP) ONE (00:07)
[2018-01-13] MEDS ORDERED: ACETAMINOPHEN 500 MG TABLET (FP) PO ONE (00:08)
[2018-01-13 00:10] VITALS: PULSE 110
== END 2018-01-13 00:11 | disposition home or self-care (01) ==
LOC: FER 21:11
PROC: 3E0337Z Introduction of Electrolytic and Water Balance Substance into Peripheral Vein, Percutaneous Approach (ICD-10-PCS; principal; 2018-01-12)
DX: J40 Bronchitis, not specified as acute or chronic (principal); K21.9 Gastro-esophageal reflux disease without esophagitis; F32.9 Major depressive disorder, single episode, unspecified; F17.210 Nicotine dependence, cigarettes, uncomplicated
CPT/HCPCS: 36415; 71046-TC-FY; 80053; 82550; 83880; 84484; 85025; 86140; 99283-25; J7030

== ENCOUNTER 2018-02-09 20:53 | Emergency (ER) | payer BC ==
[2018-02-09 21:07] VITALS: BP 149/100; PULSE 105; TEMP 97.9; BMI 32.4
--- NOTE | 2018-02-09 21:18 | PDOC ---
History of Present Illness - General Chief Complaint: Cold Symptoms Stated Complaint: GENERALIZED BODY ACHES Time Seen by Provider: 02/09/18 20:59 History Source: Patient Exam Limitations: No Limitations - History of Present Illness Initial Comments: 02/09/18 22:03 This is a 43-year-old morbidly obese black female who has a history of frequent visits to the emergency room for medical complaints. Patient was here approximately one month ago when I saw her for similar complaints. Patient comes in complaining of a migraine headache and body aches today. Patient denies any fevers or chills. Patient denies any neck stiffness. Patient took hydrocodone for the symptoms with minimal relief. Patient said it is her typical migraine and denies any neck stiffness or fevers. Patient has history significant for arthritis and chronic body aches and depression PAST MEDICAL HISTORY: no significant history PAST SURGICAL HISTORY: no significant history FAMILY HISTORY: no pertinant history SOCIAL HISTORY: Pt lives with family and is employed. MEDICATIONS: reviewed ALLERGIES: As per nursing notes Review of Systems General: No fevers or chills, no weakness, no weight loss HEENT: No change in vision. No sore throat,. No ear pain CardioVascular: No chest pain or shortness of breath Respiratory:No cough, or wheezing. Gastrointestinal: no nausea, vomitting, diarrhea or constipation, No rectal bleeding Genitourinary: No dysuria, hematuria, or frequency Musculoskeletal: No joint or muscle pain or swelling, + generalized body aches. Neurologic: + headache, no vertigo, dizziness or loss of consciousness Psychiatric: + depression Skin: No rashes or easy bruising Endocrine: no increased thirst or abnormal weight change Allergic: no skin or latex allergy All other systems reviewed and normal GENERAL: The patient is awake, alert, and fully oriented, in no acute distress. HEAD: Normal with no signs of trauma. EYES: Pupils equal, round and reactive to light, extraocular movements intact, sclera anicteric, conjunctiva clear. EXTREMITIES: Normal range of motion, no edema. NEUROLOGICAL: Normal speech, normal gait. grossly intact PSYCH: Normal mood, normal affect. SKIN: Warm, Dry, normal turgor, no rashes or lesions noted. Assessment and plan: This is a 43-year-old female who comes in complaining of headache and body aches. Patient's vitals are otherwise normal she is afebrile and she has no meningeal signs. Patient headache is her typical migraine. Patient given Toradol and Reglan. We'll reassess and reevaluate post Toradol and Reglan. 02/09/18 23:02 Patient feels much better post Toradol and Reglan and feels ready to go home. Patient discharged home Past History - Past Medical History Allergies/Adverse Reactions: Allergies Allergy/AdvReac Type Severity Reaction Status Date / Time shellfish derived Allergy Intermediate Hives Verified 01/09/18 12:04 bupropion HCl Allergy Rash Verified 01/09/18 12:04 [From Wellbutrin] Home Medications: Ambulatory Orders Albuterol Sulfate [Proair Respiclick] 90 mcg IH PRN PRN 05/10/17 Zolpidem Tartrate [Ambien] 12.5 mg PO HS 06/04/17 Omeprazole 40 mg PO DAILY 06/11/17 Sertraline HCl [Zoloft -] 100 mg PO DAILY 06/11/17 cloNIDine HCL [Catapres -] 0.1 mg PO BID 06/11/17 Clonazepam [Klonopin] 1 mg PO BID 07/20/17 Mometasone/Formoterol [Dulera 100 Mcg/5 Mcg Inhaler] 2 inh IH BID 10/28/17 Sulfasalazine 500 mg PO BID 10/28/17 Prednisone [Deltasone] 40 mg PO DAILY #10 tablet 01/09/18 Azithromycin 250 mg PO DAILY #4 tablet 01/13/18 Anemia: No Asthma: Yes (USES INHALER,PROAIR, was unable to refill inhaler) Cancer: No Cardiac Disorders: No CVA: No COPD: No CHF: No Dementia: No Diabetes: No GI Disorders: Yes (GERD) Disorders: No HTN: No Hypercholesterolemia: No Liver Disease: No Psychiatric Problems: Yes (DEPRESSION) Seizures: No Thyroid Disease: No - Surgical History Abdominal Surgery: Yes (VERTICAL SLEEVE GASTRECTOMY 2012, ABDOMINOPLASTY/AND REVISION, LIPO X2,) Appendectomy: No Cardiac Surgery: No Cholecystectomy: No Lung Surgery: No Neurologic Surgery: No Orthopedic Surgery: Yes - Suicide/Smoking/Psychosocial Hx Smoking Status: No Smoking History: Current every day smoker Years of Tobacco Use: 24 Have you smoked in the past 12 months: Yes Number of Cigarettes Smoked Daily: 20 Information on smoking cessation initiated: Yes 'Breaking Loose' booklet given: 02/09/18 Hx Alcohol Use: No Drug/Substance Use Hx: No Substance Use Type: None Hx Substance Use Treatment: No *Physical Exam - Vital Signs Last Vital Signs Temp Pulse Resp BP Pulse Ox 97.9 F 105 H 15 149/100 100 02/09/18 20:56 02/09/18 20:56 02/09/18 20:56 02/09/18 20:56 02/09/18 20:56 *DC/Admit/Observation/Transfer Diagnosis at time of Disposition: Migraine headache, Myalgia - Discharge Dispostion Disposition: HOME Condition at time of disposition: Good Decision to Admit order: No - Referrals Referrals: Edi Hendrix MD [Primary Care Provider] - - Patient Instructions Additional Instructions: Return to the emergency department immediately with ANY new, persistent or worsening symptoms. Continue any medications as previously prescribed by your physician. You should follow up with your primary doctor as soon as possible regarding today's emergency department visit. . Please make sure your doctor reviews the results of your emergency evaluation. Thank you for coming to the Emergency Department today for your care. It was a pleasure to see you today. Please note that your evaluation is INCOMPLETE until you follow-up with your doctor. - Post Discharge Activity Forms/Work/School Notes: Back to Work
[2018-02-09] MEDS ORDERED: KETOROLAC TROMETHAMINE 60 MG/2 ML VIAL IM ONE (22:02)
[2018-02-09] MEDS ORDERED: METOCLOPRAMIDE HCL INJECTION 10 MG/2 ML VIAL IM ONE (22:02)
[2018-02-09] MEDS ORDERED: KETOROLAC TROMETHAMINE 60 MG/2 ML VIAL ONE (22:09)
== END 2018-02-09 22:54 | disposition home or self-care (01) ==
LOC: FER 20:53
PROC: 3E0233Z Introduction of Anti-inflammatory into Muscle, Percutaneous Approach (ICD-10-PCS; principal; 2018-02-09)
PROC: 3E023GC Introduction of Other Therapeutic Substance into Muscle, Percutaneous Approach (ICD-10-PCS; 2018-02-09)
DX: M79.1 Myalgia (principal); G43.909 Migraine, unspecified, not intractable, without status migrainosus; F17.210 Nicotine dependence, cigarettes, uncomplicated; K21.9 Gastro-esophageal reflux disease without esophagitis; F32.9 Major depressive disorder, single episode, unspecified; Z98.84 Bariatric surgery status
CPT/HCPCS: 99282-25

== ENCOUNTER 2018-02-18 08:14 | Emergency (ER) | payer BC ==
[2018-02-18 08:42] VITALS: BP 155/91; PULSE 96; TEMP 99.1; BMI 25.0
--- NOTE | 2018-02-18 08:43 | PDOC ---
History of Present Illness - General Chief Complaint: Tachycardia Stated Complaint: HEART RACING Time Seen by Provider: 02/18/18 08:16 History Source: Patient, Old Records Exam Limitations: No Limitations - History of Present Illness Initial Comments: 02/18/18 08:43 43 yo F c/ hx of asthma, rheumatoid arthritis, current smoker, anxiety BIBEMS palpitations. The patient was well and in her usual state of health. Was going to the bathroom when she felt few seconds of rapid palpitations that resolved. Never had chest pain or shortness of breath. Denies symptoms now. Pt wanted to be cautious and called 911. 911 noted an elevated BP and brought pt to ED. Pt has no symptoms now. Past History - Past Medical History Allergies/Adverse Reactions: Allergies Allergy/AdvReac Type Severity Reaction Status Date / Time shellfish derived Allergy Intermediate Hives Verified 02/18/18 08:52 bupropion HCl Allergy Rash Verified 02/18/18 08:52 [From Wellbutrin] Home Medications: Ambulatory Orders Albuterol Sulfate [Proair Respiclick] 90 mcg IH PRN PRN 05/10/17 Zolpidem Tartrate [Ambien] 12.5 mg PO HS 06/04/17 Omeprazole 40 mg PO DAILY 06/11/17 Sertraline HCl [Zoloft -] 100 mg PO DAILY 06/11/17 cloNIDine HCL [Catapres -] 0.1 mg PO BID 06/11/17 Clonazepam [Klonopin] 1 mg PO BID 07/20/17 Mometasone/Formoterol [Dulera 100 Mcg/5 Mcg Inhaler] 2 inh IH BID 10/28/17 Sulfasalazine 500 mg PO BID 10/28/17 Prednisone [Deltasone] 40 mg PO DAILY #10 tablet 01/09/18 Azithromycin 250 mg PO DAILY #4 tablet 01/13/18 Anemia: No Asthma: Yes (USES INHALER,PROAIR, was unable to refill inhaler) Cancer: No Cardiac Disorders: No CVA: No COPD: No CHF: No Dementia: No Diabetes: No GI Disorders: Yes (GERD) Disorders: No HTN: No Hypercholesterolemia: No Liver Disease: No Psychiatric Problems: Yes (DEPRESSION) Seizures: No Thyroid Disease: No - Surgical History Abdominal Surgery: Yes (VERTICAL SLEEVE GASTRECTOMY 2012, ABDOMINOPLASTY/AND REVISION, LIPO X2,) Appendectomy: No Cardiac Surgery: No Cholecystectomy: No Lung Surgery: No Neurologic Surgery: No Orthopedic Surgery: Yes - Suicide/Smoking/Psychosocial Hx Smoking Status: No Smoking History: Current every day smoker Years of Tobacco Use: 24 Have you smoked in the past 12 months: Yes Number of Cigarettes Smoked Daily: 20 'Breaking Loose' booklet given: 02/09/18 Hx Alcohol Use: No Drug/Substance Use Hx: No Substance Use Type: None Hx Substance Use Treatment: No Review of Systems - Review of Systems Able to Perform ROS?: Yes Comments:: 02/18/18 08:50 GENERAL/CONSTITUTIONAL: No fever, weakness. HEAD, EYES, EARS, NOSE AND THROAT: No change in vision. No ear pain or discharge. No sore throat. CARDIOVASCULAR: No chest pain or shortness of breath. + palpitations. RESPIRATORY: No cough, wheezing, or hemoptysis. GASTROINTESTINAL: No abdominal pain, nausea, vomiting, diarrhea, or decreased PO intolerance. GENITOURINARY: No dysuria, frequency, or change in urination. MUSCULOSKELETAL: No joint or muscle swelling or pain. No neck or back pain. SKIN: No rash NEUROLOGIC: No headache, vertigo, loss of consciousness, or change in strength/ sensation. ENDOCRINE: No increased thirst. No abnormal weight change. HEMATOLOGIC/LYMPHATIC: No anemia, easy bleeding, or history of blood clots. ALLERGIC/IMMUNOLOGIC: No hives or skin allergy. *Physical Exam - Physical Exam Comments: 02/18/18 08:50 GENERAL: Awake, alert, and fully oriented, in no acute distress. HEAD: No signs of trauma EYES: PERRLA, EOMI, sclera anicteric, conjunctiva clear ENT: Auricles normal inspection, hearing grossly normal, nares patent, NECK: Normal ROM, supple LUNGS: Breath sounds equal, clear to auscultation bilaterally. No wheezes, and no crackles HEART: Regular rate and rhythm, normal S1 and S2, no murmurs, rubs or gallops EXTREMITIES: Normal range of motion, no edema. No clubbing or cyanosis. No cords, erythema, or tenderness NEUROLOGICAL: Cranial nerves II through XII grossly intact. Normal speech, normal gait SKIN: Warm, Dry, normal turgor, no rashes or lesions noted. Heart Score/ECG Review #1 ECG reviewed & interpreted by me at: 08:30 02/18/18 08:42 NSR 87, no std/marisol, normal axis, normal intervals, QTC 469 msec Medical Decision Making - Medical Decision Making 02/18/18 08:50 Vital Signs Temp Pulse Resp BP Pulse Ox 99.1 F 96 H 20 155/91 97 02/18/18 08:16 02/18/18 08:16 02/18/18 08:16 02/18/18 08:16 02/18/18 08:16 Patient with very brief palpitations. However, pt notes that she has been anxious, particularly with her with potentially losing her job. Denies SI/HI. Stated that she feels well and would like to find a primary care physician. ECG is reassurring and normal. I suspect that the patient was likely anxious leading her to her symptoms. Given the history and physical, I feel comfortable with having patient follow up as an outpatient. I discussed the physical exam findings, ancillary test results and final diagnoses with the patient. I answered all of the patient's questions. The patient was satisfied with the care received and felt comfortable with the discharge plan and treatment plan. The patient will call their primary care physician within 24 hours to arrange follow-up and will return to the Emergency Department with any new, persistant or worsening symptoms. *DC/Admit/Observation/Transfer Diagnosis at time of Disposition: Palpitations - Discharge Dispostion Disposition: HOME Condition at time of disposition: Stable - Referrals Referrals: Lynne Alvarez MD [Staff Physician] - Ricky Garcia MD [Staff Physician] - Lee Marks MD [Staff Physician] - - Patient Instructions Printed Discharge Instructions: DI for Palpitations Additional Instructions: Your EKG is normal. Please make an appointment with your doctors. Also, please make an appointment with a general physician. If you have any chest pain or difficulty breathing, please return to the ER for further evaluation. - Post Discharge Activity
--- NOTE | 2018-02-19 08:46 | EKG ---
Test Reason : Blood Pressure : / mmHG Vent. Rate : 087 BPM Atrial Rate : 087 BPM P-R Int : 136 ms QRS Dur : 084 ms QT Int : 390 ms P-R-T Axes : 032 -21 018 degrees QTc Int : 469 ms NORMAL SINUS RHYTHM NORMAL ECG WHEN COMPARED WITH ECG OF 28-DEC-2017 19:44, NO SIGNIFICANT CHANGE WAS FOUND Confirmed by PETER ANDRADE MD ([id number]) on 02/19/2018 8:45:31 AM Referred By: DAIN HARRIS Confirmed By:PETER ANDRADE MD
== END 2018-02-18 09:02 | disposition home or self-care (01) ==
LOC: FER 08:14
DX: R00.2 Palpitations (principal); F17.210 Nicotine dependence, cigarettes, uncomplicated; J45.909 Unspecified asthma, uncomplicated; K21.9 Gastro-esophageal reflux disease without esophagitis; F32.9 Major depressive disorder, single episode, unspecified; Z98.84 Bariatric surgery status
CPT/HCPCS: 93005; 99282-25

== ENCOUNTER 2018-03-20 17:38 | Emergency (ER) | payer BC ==
--- NOTE | 2018-03-20 17:41 | PDOC ---
History of Present Illness - General History Source: Patient Exam Limitations: No Limitations - History of Present Illness Initial Comments: 03/20/18 17:57 The patient is a 43 year old female with a significant PMH of current smoker, asthma (uses inhaler), GERD, and depression who presents to the emergency department with worsening cough. The patient states she saw her PCP a few days ago who prescribed a z-kameron for her bronchitis. Patient has not started taking the medication and decided to come to the ER for further evaluation before starting the z-kameron. The patient reports she is not currently on albuterol or prednisone but uses her inhaler at home as needed. Patient denies fever, chills, or chest pain. Allergies: bupropion Past surgical history: VERTICAL SLEEVE GASTRECTOMY 2011, ABDOMINOPLASTY/AND REVISION, LIPO X2 Social history: Current smoker. No reported alcohol or drug use. <Lara Gilliam - Last Filed: 03/20/18 17:58> <Devon Acuna - Last Filed: 03/20/18 18:06> - General Chief Complaint: Respiratory Stated Complaint: COUGH Time Seen by Provider: 03/20/18 17:41 Past History <Lara Gilliam - Last Filed: 03/20/18 17:58> - Past Medical History Anemia: No Asthma: Yes (USES INHALER,PROAIR, was unable to refill inhaler) Cancer: No Cardiac Disorders: No CVA: No COPD: No CHF: No Dementia: No Diabetes: No GI Disorders: Yes (GERD) Disorders: No HTN: No Hypercholesterolemia: No Liver Disease: No Psychiatric Problems: Yes (DEPRESSION) Seizures: No Thyroid Disease: No - Surgical History Abdominal Surgery: Yes (VERTICAL SLEEVE GASTRECTOMY 2011, ABDOMINOPLASTY/AND REVISION, LIPO X2,) Appendectomy: No Cardiac Surgery: No Cholecystectomy: No Lung Surgery: No Neurologic Surgery: No Orthopedic Surgery: Yes - Suicide/Smoking/Psychosocial Hx Smoking Status: No Smoking History: Current every day smoker Years of Tobacco Use: 24 Have you smoked in the past 12 months: Yes Number of Cigarettes Smoked Daily: 20 'Breaking Loose' booklet given: 02/09/18 Hx Alcohol Use: No Drug/Substance Use Hx: No Substance Use Type: None Hx Substance Use Treatment: No <Devon Acuna - Last Filed: 03/20/18 18:06> - Past Medical History Allergies/Adverse Reactions: Allergies Allergy/AdvReac Type Severity Reaction Status Date / Time shellfish derived Allergy Intermediate Hives Verified 03/20/18 17:39 bupropion HCl Allergy Rash Verified 03/20/18 17:39 [From Wellbutrin] Home Medications: Ambulatory Orders Albuterol Sulfate [Proair Respiclick] 90 mcg IH PRN PRN 05/10/17 Zolpidem Tartrate [Ambien] 12.5 mg PO HS 06/04/17 Omeprazole 40 mg PO DAILY 06/11/17 Sertraline HCl [Zoloft -] 100 mg PO DAILY 06/11/17 cloNIDine HCL [Catapres -] 0.1 mg PO BID 06/11/17 Clonazepam [Klonopin] 1 mg PO BID 07/20/17 Mometasone/Formoterol [Dulera 100 Mcg/5 Mcg Inhaler] 2 inh IH BID 10/28/17 Sulfasalazine 500 mg PO BID 10/28/17 Prednisone [Deltasone] 40 mg PO DAILY #10 tablet 01/09/18 Azithromycin 250 mg PO DAILY #4 tablet 01/13/18 Sumatriptan Succinate [Imitrex -] 50 mg PO ONCE PRN #20 tablet MDD 2 tabs predniSONE [Deltasone -] 20 mg PO BID #10 tablet 03/20/18 Review of Systems - Review of Systems Able to Perform ROS?: Yes Comments:: 03/20/18 17:59 CONSTITUTIONAL: Absent: fever, no chills, no fatigue EYES: Absent: visual changes ENT: Absent: ear pain, no sore throat CARDIOVASCULAR: Absent: chest pain, no palpitations RESPIRATORY: Absent: no SOB Present: cough GI: Absent: abdominal pain, no nausea, no vomiting, no constipation, no diarrhea GENITOURINARY: Absent: dysuria, no frequency, no hematuria MUSKULOSKELETAL: Absent: back pain, no arthralgia, no myalgia SKIN: Absent: rash NEURO: Absent: headache <Tawana,Lara - Last Filed: 03/20/18 17:58> *Physical Exam - Vital Signs Last Vital Signs Temp Pulse Resp BP Pulse Ox 98.5 F 98 H 18 148/109 98 03/20/18 17:38 03/20/18 17:38 03/20/18 17:38 03/20/18 17:38 03/20/18 17:38 - Physical Exam Comments: 03/20/18 17:45 GENERAL: Well-appearing, well-nourished. No apparent distress. HEENT: Normocephalic, atraumatic. PERRL, EOM intact. CARDIOVASCULAR: Normal S1, S2. Regular rate and rhythm. PULMONARY: (+) Expiratory wheezing with coarse breath sounds. No rales or rhonchi. ABDOMEN: Soft, non-distended, non-tender. EXTREMITIES: Normal ROM in all four extremities. No gross deformities. SKIN: Warm, dry. No rash NEUROLOGICAL: No focal neurological deficits. <Lara Gilliam - Last Filed: 03/20/18 17:58> Progress Note - Progress Note Progress Note: PT with what appears to be asthmatic bronchitis Pt given DuoNeb and Prednisone in ER After treatment, lungs without wheezing b/l, pt feels better Will send pt home on Prednisone, contineu asthma meds and Z-pack If worsen return to ER Pt is in agreement with plan <Devon Acuna - Last Filed: 03/20/18 18:06> Medical Decision Making - Medical Decision Making 03/20/18 18:00 Documentation prepared by Lara Gilliam, acting as medical administrator for Devon Acuna MD. <Lara Gilliam - Last Filed: 03/20/18 17:58> *DC/Admit/Observation/Transfer <Lara Gilliam - Last Filed: 03/20/18 17:58> - Discharge Dispostion Decision to Admit order: No <Devon Acuna - Last Filed: 03/20/18 18:06> Diagnosis at time of Disposition: Asthmatic bronchitis Qualifiers: Asthma severity: mild Asthma persistence: persistent Asthma complication type: uncomplicated Qualified Code(s): J45.30 - Mild persistent asthma, uncomplicated - Discharge Dispostion Disposition: HOME Condition at time of disposition: Stable - Patient Instructions Printed Discharge Instructions: DI for Acute Bronchitis Additional Instructions: Fluids, rest, Tylenol Start Z-pack as directed Continue asthma medications as needed Prednisone 20 mg 2x/day for 5 days If worsen return to ER
[2018-03-20 17:45] VITALS: BP 148/109; PULSE 98; TEMP 98.5; BMI 29.0
[2018-03-20] MEDS ORDERED: ALBUTEROL SO4 2.5/IPRATROPIUM 0.5 INH SOL 3 ML VIAL.NEB. NEB ONE ×2 (17:45→17:46)
[2018-03-20] MEDS ORDERED: predniSONE 20 MG TABLET (UD) PO ONE (17:45)
[2018-03-20] MEDS ORDERED: predniSONE 20 MG TABLET (UD) ONE (18:02)
== END 2018-03-20 18:10 | disposition home or self-care (01) ==
LOC: FER 17:38
PROC: 3E0F7GC Introduction of Other Therapeutic Substance into Respiratory Tract, Via Natural or Artificial Opening (ICD-10-PCS; principal; 2018-03-20)
DX: J45.30 Mild persistent asthma, uncomplicated (principal); F32.9 Major depressive disorder, single episode, unspecified; F17.210 Nicotine dependence, cigarettes, uncomplicated; K21.9 Gastro-esophageal reflux disease without esophagitis
CPT/HCPCS: 99282-25; J7620

== ENCOUNTER 2018-04-13 15:07 | Emergency (ER) | payer BC ==
[2018-04-13] MEDS ORDERED: KETOROLAC TROMETHAMINE 60 MG/2 ML VIAL IM ONE (15:21)
[2018-04-13] MEDS ORDERED: ACETAMINOPHEN 325 MG TABLET (FP) PO ONE (15:21)
[2018-04-13 15:23] VITALS: BP 144/89; PULSE 96; TEMP 98.6; BMI 31.4
--- NOTE | 2018-04-13 15:27 | PDOC ---
History of Present Illness - General Chief Complaint: Pain Stated Complaint: RIGHT KNEE PAIN Time Seen by Provider: 04/13/18 15:18 History Source: Patient Exam Limitations: No Limitations - History of Present Illness Initial Comments: 04/13/18 15:22 The patient is a 43F with a PMH of chronic R knee pain, HTN, RA, asthma, who presents to the ER with complaints of R knee pain. The patient states that she began to feel R knee sharp pain, nonradiating, atraumatic yesterday evening. She said she thought it was "because of the rain". However, her pain continued to worsen today. She denies taking any medications, denies difficulty moving her knee or ambulating, and denies numbness, tingling, and weakness. She denies prolonged immobilization. 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 Past History - Past Medical History Allergies/Adverse Reactions: Allergies Allergy/AdvReac Type Severity Reaction Status Date / Time shellfish derived Allergy Intermediate Hives Verified 04/13/18 15:08 bupropion HCl Allergy Rash Verified 04/13/18 15:09 [From Wellbutrin] Home Medications: Ambulatory Orders Albuterol Sulfate [Proair Respiclick] 90 mcg IH PRN PRN 05/10/17 Zolpidem Tartrate [Ambien] 12.5 mg PO HS 06/04/17 Omeprazole 40 mg PO DAILY 06/11/17 Sertraline HCl [Zoloft -] 100 mg PO DAILY 06/11/17 cloNIDine HCL [Catapres -] 0.1 mg PO BID 06/11/17 Clonazepam [Klonopin] 1 mg PO BID 07/20/17 Sulfasalazine 500 mg PO BID 10/28/17 Gabapentin 500 mg PO DAILY 04/13/18 Leflunomide 20 mg PO DAILY 04/13/18 Anemia: No Asthma: Yes (USES INHALER,PROAIR, was unable to refill inhaler) Cancer: No Cardiac Disorders: No CVA: No COPD: No CHF: No Dementia: No Diabetes: No GI Disorders: Yes (GERD) Disorders: No HTN: No Hypercholesterolemia: No Liver Disease: No Psychiatric Problems: Yes (DEPRESSION) Seizures: No Thyroid Disease: No - Surgical History Abdominal Surgery: Yes (VERTICAL SLEEVE GASTRECTOMY 2012, ABDOMINOPLASTY/AND REVISION, LIPO X2,) Appendectomy: No Cardiac Surgery: No Cholecystectomy: No Lung Surgery: No Neurologic Surgery: No Orthopedic Surgery: Yes - Suicide/Smoking/Psychosocial Hx Smoking Status: No Smoking History: Current every day smoker Years of Tobacco Use: 24 Have you smoked in the past 12 months: Yes Number of Cigarettes Smoked Daily: 20 'Breaking Loose' booklet given: 03/31/18 Hx Alcohol Use: No Drug/Substance Use Hx: No Substance Use Type: None Hx Substance Use Treatment: No Review of Systems - Review of Systems Able to Perform ROS?: Yes Comments:: 04/13/18 15:24 GENERAL: Well developed, well nourished. Awake and alert. No acute distress. HEENT: Normocephalic, atraumatic. Hearing grossly normal. PULMONARY: No evidence of respiratory distress. MUSCULOSKELETAL: Normal range of motion at all joints. No bony deformities or tenderness. No TTP over R knee. No tenderness with active or passive ROM. EXTREMITIES: No cyanosis. No clubbing. No edema. No calf tenderness or swelling. SKIN: Warm and dry. Normal capillary refill. No rashes. No jaundice. NEUROLOGICAL: Alert, awake, appropriate. Cranial nerves 2-12 intact. No deficits to light touch and temperature in lower extremities. 5/5 strength in quadriceps, hamstrings, and gastrocnemius. Normal speech. Gait is normal without ataxia. PSYCHIATRIC: Cooperative. Good eye contact. Appropriate mood and affect. Is the patient limited Italian proficient: No Medical Decision Making - Medical Decision Making 04/13/18 15:26 The patient is a 43F with a PMH of chronic R knee pain who presents to the ER with atraumatic knee pain which has been worsening. She has a f/u with her orthopedic surgeon. PE is normal. Knee joint is nontender, nonerythematous, not warm to touch. Will treat with tylenol and toradol and reassess. LMP is now. Will reassess after pain meds are given. 04/13/18 16:06 Pt states her pain has improved and is noted to be ambulating with no pain on active movement. Will d/c with ortho f/u. *DC/Admit/Observation/Transfer Diagnosis at time of Disposition: Right knee pain Qualifiers: Chronicity: acute Qualified Code(s): M25.561 - Pain in right knee - Discharge Dispostion Disposition: HOME Condition at time of disposition: Stable Decision to Admit order: No - Referrals - Patient Instructions Printed Discharge Instructions: DI for Knee Pain Additional Instructions: Please follow up with your primary care physician in 2-3 days. Also, keep your appointment with your orthopedic doctor and let them know about the pain you were experiencing today. Take tylenol or motrin as needed for pain. Please return to the ER if you have any signs or symptoms of chest pain, shortness of breath, uncontrollable fever, chills, nausea, vomiting, numbness, tingling, or weakness in any part of your body, changes in vision, or slurred speech. Please return to the ER if symptoms persist, worsen, or new symptoms arise. - Post Discharge Activity
[2018-04-13] MEDS ORDERED: ACETAMINOPHEN 325 MG TABLET (FP) ONE (15:32)
[2018-04-13] MEDS ORDERED: KETOROLAC TROMETHAMINE 30 MG/1 ML VIAL ONE (15:32)
--- NOTE | 2018-04-13 15:36 | PDOC ---
Attending Attestation - HPI HPI: 04/13/18 15:44 The patient is a 43 year old female with a significant PMH of asthma, GERD, and depression who presents to the emergency department with right knee pain for 2 days.the patient reports that her right knee has gotten significantly worse since yesterday. She states that her right knee pain intensified yesterday when it was raining. 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 The patient denies any injury to her knee. She states that she follows up with an orthopedist and her next appointment is in two weeks. The patient reports that her last MRI was about 1 week ago.she states that she usually uses a knee brace but did not wear it today. The patient denies any other symptoms. She denies any fever, chills, nausea, vomit, diarrhea ,constipation or urinary symptoms. She denies any chest pain, shortness of breath, headache and dizziness.. Allergies: Shellfish, Bupropion HCL Documentation prepared by Yadira Frias, acting as anesthesiology medical doctor for Debra Massey MD. <Yadira Frias - Last Filed: 04/13/18 15:44> - Resident Resident Name: Rudy Cancino - ED Attending Attestation I have performed the following: I have examined & evaluated the patient, The case was reviewed & discussed with the resident, I agree w/resident's findings & plan, Exceptions are as noted - HPI HPI: 04/13/18 15:28 Ms Michel is a 43 yo F who presents to the ER with a complaint of right knee pain She has a history of chronic knee pain No trauma to the knee Symptoms began yesterday during the rain No fevers or chills No skin erythema Pt is ambulatory with no difficulty - Physicial Exam PE: 04/13/18 15:37 On examination Right knee with well healed surgical scars Minimal joint swelling No obvious deformities No erythema Nml active range of motion - flexion and extension Stable to anterior drawer and posterior drawer - Medical Decision Making 04/13/18 15:42 No need to x ray Pain management Will discharge to home Follow up with Dr Hairston <Debra Massey - Last Filed: 04/13/18 16:18>
== END 2018-04-13 16:25 | disposition home or self-care (01) ==
LOC: FER 15:07
PROC: 3E0233Z Introduction of Anti-inflammatory into Muscle, Percutaneous Approach (ICD-10-PCS; principal; 2018-04-13)
DX: M25.561 Pain in right knee (principal); I10 Essential (primary) hypertension; J45.909 Unspecified asthma, uncomplicated; K21.9 Gastro-esophageal reflux disease without esophagitis; F32.9 Major depressive disorder, single episode, unspecified; M06.9 Rheumatoid arthritis, unspecified; F17.210 Nicotine dependence, cigarettes, uncomplicated; Z91.013 Allergy to seafood; Z90.3 Acquired absence of stomach [part of]
CPT/HCPCS: 99282-25

== ENCOUNTER 2018-05-01 20:49 | Emergency (ER) | payer BC ==
[2018-05-01 21:02] VITALS: BP 137/78; PULSE 104; TEMP 98.6; BMI 35.2
--- NOTE | 2018-05-01 22:25 | PDOC ---
History of Present Illness - General History Source: Patient, Old Records Exam Limitations: No Limitations - History of Present Illness Initial Comments: 05/01/18 23:29 Patient is a 43 year old female with a significant past medical history of asthma, GERD, and depression , who presents to the ED with complaints of right knee pain that began x6 days Wednesday evening. 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 She reports pain is constant pain that has gradually gotten worse over time, stating she is no longer able to bear the pain and is increasingly being unable to walk long distances, prompting her to come into the ED for further evaluation. Patient reports coming to ED x5 days ago on Wednesday for URI symptoms, stating they have not relieved. She reports experiencing shortness of breath, vomiting secondary to productive cough with foggy sputum as well as intermittent wheezing. Patient reports being finishing prescription of azithromycin and prednisone, with no relief. Denies chest pain, Denies nausea. Denies contact with sick individuals, out of state travelling. Denies fevers, chills. Denies any other symptoms. Allergies: Shellfish, Wellbutrin Social history: Current smoker (15 cigarettes per day). No alcohol. No illicit drugs. Surgical history: Vertical sleeve gastrectomy 2011, Abdominoplasty/ and revision , Lipo x2. PMD: None <Jason Valencia - Last Filed: 05/01/18 23:29> <Jacqueline Turner - Last Filed: 05/02/18 03:54> - General Chief Complaint: Respiratory Stated Complaint: BRONCHITIS/RIGHT KNEE PAIN Time Seen by Provider: 05/01/18 21:06 Past History <Jason Valencia - Last Filed: 05/01/18 23:29> - Past Medical History Anemia: No Asthma: Yes (USES INHALER,PROAIR, was unable to refill inhaler) Cancer: No Cardiac Disorders: No CVA: No COPD: No CHF: No Dementia: No Diabetes: No GI Disorders: Yes (GERD) Disorders: No HTN: No Hypercholesterolemia: No Liver Disease: No Psychiatric Problems: Yes (DEPRESSION) Seizures: No Thyroid Disease: No - Surgical History Abdominal Surgery: Yes (VERTICAL SLEEVE GASTRECTOMY 2011, ABDOMINOPLASTY/AND REVISION, LIPO X2,) Appendectomy: No Cardiac Surgery: No Cholecystectomy: No Lung Surgery: No Neurologic Surgery: No Orthopedic Surgery: Yes - Suicide/Smoking/Psychosocial Hx Smoking Status: No Smoking History: Current every day smoker Years of Tobacco Use: 24 Have you smoked in the past 12 months: Yes Number of Cigarettes Smoked Daily: 20 If you are a former smoker, when did you quit?: 15 Information on smoking cessation initiated: Yes 'Breaking Loose' booklet given: 03/31/18 Hx Alcohol Use: No Drug/Substance Use Hx: No Substance Use Type: None Hx Substance Use Treatment: No <Jacqueline Turner - Last Filed: 05/02/18 03:54> - Past Medical History Allergies/Adverse Reactions: Allergies Allergy/AdvReac Type Severity Reaction Status Date / Time shellfish derived Allergy Intermediate Hives Verified 05/01/18 20:51 bupropion HCl Allergy Rash Verified 05/01/18 20:51 [From Wellbutrin] Home Medications: Ambulatory Orders Albuterol Sulfate [Proair Respiclick] 90 mcg IH PRN PRN 05/10/17 Zolpidem Tartrate [Ambien] 12.5 mg PO HS 06/04/17 Sertraline HCl [Zoloft -] 100 mg PO DAILY 06/11/17 cloNIDine HCL [Catapres -] 0.1 mg PO BID 06/11/17 Clonazepam [Klonopin] 1 mg PO BID 07/20/17 Sulfasalazine 500 mg PO BID 10/28/17 Gabapentin 500 mg PO DAILY 04/13/18 Leflunomide 20 mg PO DAILY 04/13/18 Prednisone [Deltasone] 40 mg PO DAILY #8 tablet 04/27/18 Cefuroxime Axetil [Ceftin -] 500 mg PO Q12H #14 tablet 05/01/18 Fluconazole [Diflucan -] 150 mg PO ONCE #1 tablet 05/01/18 Fluconazole [Diflucan -] 150 mg PO ONCE #2 tablet 05/01/18 predniSONE [Deltasone -] 40 mg PO DAILY #10 tablet 05/01/18 Review of Systems - Review of Systems Able to Perform ROS?: Yes Comments:: 05/01/18 23:29 GENERAL/CONSTITUTIONAL: No fever or chills. No weakness. HEAD, EYES, EARS, NOSE AND THROAT: No change in vision. No ear pain or discharge. No sore throat. CARDIOVASCULAR: No chest pain or shortness of breath. RESPIRATORY: +Productive coughing. +Wheezing. +Shortness of breath. No hemoptysis. GASTROINTESTINAL: +Vomiting. No nausea, diarrhea or constipation. GENITOURINARY: No dysuria, frequency, or change in urination. MUSCULOSKELETAL: No joint or muscle swelling or pain. No neck or back pain. SKIN: No rash NEUROLOGIC: No headache, vertigo, loss of consciousness, or change in strength/ sensation. ENDOCRINE: No increased thirst. No abnormal weight change. HEMATOLOGIC/LYMPHATIC: No anemia, easy bleeding, or history of blood clots. ALLERGIC/IMMUNOLOGIC: No hives or skin allergy. <Jason Valencia - Last Filed: 05/01/18 23:29> *Physical Exam - Vital Signs Last Vital Signs Temp Pulse Resp BP Pulse Ox 98.6 F 104 H 18 137/78 99 05/01/18 20:58 05/01/18 20:58 05/01/18 20:58 05/01/18 20:58 05/01/18 20:58 - Physical Exam Comments: 05/01/18 23:29 GENERAL: Awake, alert, and fully oriented, in no acute distress HEAD: No signs of trauma EYES: PERRLA, EOMI, sclera anicteric, conjunctiva clear ENT: Auricles normal inspection, hearing grossly normal, nares patent, oropharynx clear without exudates. Moist mucosa NECK: Normal ROM, supple, no lymphadenopathy, JVD, or masses LUNGS: +Bilateral expiratory wheezing. Breath sounds equal, clear to auscultation bilaterally. No crackles HEART: Regular rate and rhythm, normal S1 and S2, no murmurs, rubs or gallops ABDOMEN: Soft, nontender, normoactive bowel sounds. No guarding, no rebound. No masses EXTREMITIES: Normal range of motion, no edema. No clubbing or cyanosis. No cords, erythema, or tenderness NEUROLOGICAL: Cranial nerves II through XII grossly intact. Normal speech, normal gait SKIN: Warm, Dry, normal turgor, no rashes or lesions noted. <Jason Valencia - Last Filed: 05/01/18 23:29> - Vital Signs Last Vital Signs Temp Pulse Resp BP Pulse Ox 98.6 F 104 H 18 137/78 99 05/01/18 20:58 05/01/18 20:58 05/01/18 20:58 05/01/18 20:58 05/01/18 20:58 <Jacqueline Turner - Last Filed: 05/02/18 03:54> ED Treatment Course - Medications Given in the ED: ED Medications Discontinued Medications Generic Name Dose Route Start Last Admin Trade Name Santa PRN Reason Stop Dose Admin Albuterol/Ipratropium 1 amp 05/01/18 22:33 05/01/18 22:36 Duoneb - NEB 05/01/18 22:34 1 amp ONCE ONE Administration Prednisone 40 mg 05/01/18 22:37 05/01/18 22:39 Deltasone - PO 05/01/18 22:38 40 mg ONCE ONE Administration <Jason Valencia - Last Filed: 05/01/18 23:29> Progress Note - Progress Note Progress Note: Documentation has been prepared under my direction and personally reviewed by me in its entirety. I attest that this documented accurately reflects all work, treatment, procedures and medical decision making performed by me. <Jacqueline Turner - Last Filed: 05/02/18 03:54> Medical Decision Making - Medical Decision Making As noted above, this 43-year-old woman with a history of asthma,RA, GERD presents with persistent right knee pain after overuse at work as well as persistent productive cough/wheezing. Patient was seen here 5 days ago for her respiratory complaints and was started on azithromycin course as well as daily prednisone. She was also given renewal prescriptions for inhalers. Despite this, productive cough and intermittent wheezing persists. Exam as noted. Patient given DuoNeb nebulizer treatment after wheezing heard on lung exam. Also, because of persistence of symptoms despite full course of azithromycin, chest x-ray performed to evaluate for pneumonia or other acute processes. Preliminary reading of chest x-ray by me: No evidence of infiltrate/effusion/ masses. Clinical presentation consistent with bronchitis; since she had treatment failure with azithromycin, patient will be started on cefuroxime 500 mg twice a week pending follow-up with her PCP. Also, another five-day course of prednisone 40 mg daily will be given. 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 Abdiaziz wrap applied to her right knee. Work note given for the next 5 days <Jacqueline Turner - Last Filed: 05/02/18 03:54> *DC/Admit/Observation/Transfer - Attestations Scribe Attestion: 05/01/18 23:29 Documentation prepared by Jason Valencia, acting as medical clerical assistant for Jacqueline Turner MD. <Jason Valencia - Last Filed: 05/01/18 23:29> <Jacqueline Turner - Last Filed: 05/02/18 03:54> Diagnosis at time of Disposition: Bronchitis, Internal derangement of right knee - Discharge Dispostion Disposition: HOME Condition at time of disposition: Stable - Prescriptions Prescriptions: Cefuroxime Axetil [Ceftin -] 500 mg PO Q12H #14 tablet Fluconazole [Diflucan -] 150 mg PO ONCE #1 tablet Fluconazole [Diflucan -] 150 mg PO ONCE #2 tablet predniSONE [Deltasone -] 40 mg PO DAILY #10 tablet - Patient Instructions Printed Discharge Instructions: DI for Acute Bronchitis, Smoking Cessation Additional Instructions: Ceftin 500 mg twice a day for 1 week Diflucan 150mg once as needed; can repeat in 24 hours if symptoms persist Prednisone 40 mg daily for 5 days Continue inhalers as prescribed No work until May 07 Abdiaziz wrap to right knee during the day for the next 2 weeks - Post Discharge Activity Forms/Work/School Notes: Back to Work
[2018-05-01] MEDS ORDERED: ALBUTEROL SO4 2.5/IPRATROPIUM 0.5 INH SOL 3 ML VIAL.NEB. NEB ONE ×2 (22:33)
[2018-05-01] MEDS ORDERED: predniSONE 20 MG TABLET (UD) PO ONE (22:37)
[2018-05-01] MEDS ORDERED: predniSONE 20 MG TABLET (UD) ONE (22:38)
[2018-05-01] MEDS ORDERED: CEFUROXIME AXETIL 500 MG TABLET PO ONE (23:40)
== END 2018-05-01 23:56 | disposition home or self-care (01) ==
LOC: FER 20:49
PROC: 3E0F7GC Introduction of Other Therapeutic Substance into Respiratory Tract, Via Natural or Artificial Opening (ICD-10-PCS; principal; 2018-05-01)
DX: J40 Bronchitis, not specified as acute or chronic (principal); Y35.891A Legal intervention involving other specified means, law enforcement official injured, initial encounter; M23.91 Unspecified internal derangement of right knee; Y93.89 Activity, other specified; Y92.89 Other specified places as the place of occurrence of the external cause; Y99.0 Civilian activity done for income or pay
CPT/HCPCS: 71046-TC-FY; 99281-25; J7620

== ENCOUNTER 2018-05-08 22:34 | Emergency (ER) | payer BC ==
[2018-05-08] MEDS ORDERED: ACETAMINOPHEN 325 MG TABLET (FP) PO ONE (22:53)
--- NOTE | 2018-05-08 22:53 | PDOC ---
History of Present Illness - General History Source: Patient, Old Records Exam Limitations: No Limitations - History of Present Illness Initial Comments: 05/08/18 23:02 Patient is a 43 year old female with a significant past medical history of asthma, GERD, and depression who presents to the ED with complaints of right knee pain that began yesterday morning. 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 She reports pain subsiding slightly after a few moments, which allowed her to keep working. Patient reports walking yesterday night when she almost fell multiple times due to her right knee giving out prompting her to come into the ED for further evaluation. Denies chest pain, Denies nausea. Denies contact with sick individuals, out of state travelling. Denies fevers, chills. Denies numbness, tingles. Denies any other symptoms. Allergies: Shellfish, Wellbutrin Social history: Current smoker (15 cigarettes per day). No alcohol. No illicit drugs. Surgical history: Vertical sleeve gastrectomy 2011, Abdominoplasty/ and revision , Lipo x2. PMD: Dr. Mckoy <Jason Valencia - Last Filed: 05/08/18 23:02> <Annika Hooks - Last Filed: 05/08/18 23:38> - General Chief Complaint: Injury Stated Complaint: INJURY TO RIGHT KNEE Time Seen by Provider: 05/08/18 22:43 Past History <Jason Valencia - Last Filed: 05/08/18 23:02> - Past Medical History Anemia: No Asthma: Yes (USES INHALER,PROAIR, was unable to refill inhaler) Cancer: No Cardiac Disorders: No CVA: No COPD: No CHF: No Dementia: No Diabetes: No GI Disorders: Yes (GERD) Disorders: No HTN: No Hypercholesterolemia: No Liver Disease: No Psychiatric Problems: Yes (DEPRESSION) Seizures: No Thyroid Disease: No - Surgical History Abdominal Surgery: Yes (VERTICAL SLEEVE GASTRECTOMY 2011, ABDOMINOPLASTY/AND REVISION, LIPO X2,) Appendectomy: No Cardiac Surgery: No Cholecystectomy: No Lung Surgery: No Neurologic Surgery: No Orthopedic Surgery: Yes - Suicide/Smoking/Psychosocial Hx Smoking Status: No Smoking History: Current every day smoker Years of Tobacco Use: 24 Have you smoked in the past 12 months: Yes Number of Cigarettes Smoked Daily: 20 If you are a former smoker, when did you quit?: 15 'Breaking Loose' booklet given: 03/31/18 Hx Alcohol Use: No Drug/Substance Use Hx: No Substance Use Type: None Hx Substance Use Treatment: No <Annika Hooks - Last Filed: 05/08/18 23:38> - Past Medical History Allergies/Adverse Reactions: Allergies Allergy/AdvReac Type Severity Reaction Status Date / Time shellfish derived Allergy Intermediate Hives Verified 05/01/18 20:51 bupropion HCl Allergy Rash Verified 05/01/18 20:51 [From Wellbutrin] Home Medications: Ambulatory Orders Albuterol Sulfate [Proair Respiclick] 90 mcg IH PRN PRN 05/10/17 Zolpidem Tartrate [Ambien] 12.5 mg PO HS 06/04/17 Sertraline HCl [Zoloft -] 100 mg PO DAILY 06/11/17 cloNIDine HCL [Catapres -] 0.1 mg PO BID 06/11/17 Clonazepam [Klonopin] 1 mg PO BID 07/20/17 Sulfasalazine 500 mg PO BID 10/28/17 Gabapentin 500 mg PO DAILY 04/13/18 Leflunomide 20 mg PO DAILY 04/13/18 Prednisone [Deltasone] 40 mg PO DAILY #8 tablet 04/27/18 predniSONE [Deltasone -] 40 mg PO DAILY #10 tablet 05/01/18 Amlodipine Besylate [Norvasc -] 5 mg PO DAILY #30 tablet 05/08/18 Review of Systems - Review of Systems Able to Perform ROS?: Yes Comments:: 05/08/18 23:02 GENERAL/CONSTITUTIONAL: No fever or chills. No weakness. HEAD, EYES, EARS, NOSE AND THROAT: No change in vision. No ear pain or discharge. No sore throat. CARDIOVASCULAR: No chest pain or shortness of breath. RESPIRATORY: No cough, wheezing, or hemoptysis. GASTROINTESTINAL: No nausea, vomiting, diarrhea or constipation. GENITOURINARY: No dysuria, frequency, or change in urination. MUSCULOSKELETAL: +Right knee pain. No joint or muscle swelling. No neck or back pain. SKIN: No rash NEUROLOGIC: No headache, vertigo, loss of consciousness, or change in strength/ sensation. ENDOCRINE: No increased thirst. No abnormal weight change. HEMATOLOGIC/LYMPHATIC: No anemia, easy bleeding, or history of blood clots. ALLERGIC/IMMUNOLOGIC: No hives or skin allergy. <Jason Valencia - Last Filed: 05/08/18 23:02> *Physical Exam - Vital Signs Last Vital Signs Temp Pulse Resp BP Pulse Ox 99.3 F 112 H 16 163/111 100 05/08/18 22:47 05/08/18 22:47 05/08/18 22:47 05/08/18 22:47 05/08/18 22:47 - Physical Exam Comments: 05/08/18 23:02 GENERAL: Awake, alert, and fully oriented, in no acute distress HEAD: No signs of trauma EYES: PERRLA, EOMI, sclera anicteric, conjunctiva clear ENT: Auricles normal inspection, hearing grossly normal, nares patent, oropharynx clear without exudates. Moist mucosa NECK: Normal ROM, supple, no lymphadenopathy, JVD, or masses LUNGS: Breath sounds equal, clear to auscultation bilaterally. No wheezes, and no crackles HEART: Regular rate and rhythm, normal S1 and S2, no murmurs, rubs or gallops ABDOMEN: Soft, nontender, normoactive bowel sounds. No guarding, no rebound. No masses EXTREMITIES: +Left knee stable. No ligament injuries Normal range of motion, no edema. No clubbing or cyanosis. No cords, erythema, or tenderness NEUROLOGICAL: Cranial nerves II through XII grossly intact. Normal speech, normal gait SKIN: Warm, Dry, normal turgor, no rashes or lesions noted. 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 Pt has no other complaints. She has known knee injuries as well as an othropedist (Dr. Callahan) who sees her. 05/08/18 23:27 knee XR is normal Pt has been advised to wear her knee immobilizer. 05/08/18 23:28 We placed her in an perfecto wrap today. Pt's BP is elevated, but she has not taken her BP meds today. I will start her on amlodipine, as her BP is chronically high every time she come to the ER and she has tachycardis more often than not. SHe is to follow with her PMD <Annika Hooks - Last Filed: 05/08/18 23:38> *DC/Admit/Observation/Transfer - Attestations Scribe Attestion: 05/08/18 23:03 Documentation prepared by Jason Valencia, acting as medical genetics director for Annika Hooks MD. <Jason Valencia - Last Filed: 05/08/18 23:02> - Discharge Dispostion Decision to Admit order: No <Annika Hooks - Last Filed: 05/08/18 23:38> Diagnosis at time of Disposition: Knee injury, HTN (hypertension) - Discharge Dispostion Disposition: HOME Condition at time of disposition: Stable - Prescriptions Prescriptions: Amlodipine Besylate [Norvasc -] 5 mg PO DAILY #30 tablet - Referrals Referrals: Zane Mckoy MD [Primary Care Provider] - Hood Callahan MD [Staff Physician] - - Patient Instructions Printed Discharge Instructions: High Blood Pressure, How to Use a Knee Immobilizer, How to Apply an Elastic Wrap on Knee - Post Discharge Activity Forms/Work/School Notes: Back to Work
--- NOTE | 2018-05-08 22:54 | PDOC ---
History of Present Illness - General Chief Complaint: Injury Stated Complaint: INJURY TO RIGHT KNEE Time Seen by Provider: 05/08/18 22:43 Past History - Past Medical History Allergies/Adverse Reactions: Allergies Allergy/AdvReac Type Severity Reaction Status Date / Time shellfish derived Allergy Intermediate Hives Verified 05/01/18 20:51 bupropion HCl Allergy Rash Verified 05/01/18 20:51 [From Wellbutrin] Home Medications: Ambulatory Orders Albuterol Sulfate [Proair Respiclick] 90 mcg IH PRN PRN 05/10/17 Zolpidem Tartrate [Ambien] 12.5 mg PO HS 06/04/17 Sertraline HCl [Zoloft -] 100 mg PO DAILY 06/11/17 cloNIDine HCL [Catapres -] 0.1 mg PO BID 06/11/17 Clonazepam [Klonopin] 1 mg PO BID 07/20/17 Sulfasalazine 500 mg PO BID 10/28/17 Gabapentin 500 mg PO DAILY 04/13/18 Leflunomide 20 mg PO DAILY 04/13/18 Prednisone [Deltasone] 40 mg PO DAILY #8 tablet 04/27/18 predniSONE [Deltasone -] 40 mg PO DAILY #10 tablet 05/01/18 Anemia: No Asthma: Yes (USES INHALER,PROAIR, was unable to refill inhaler) Cancer: No Cardiac Disorders: No CVA: No COPD: No CHF: No Dementia: No Diabetes: No GI Disorders: Yes (GERD) Disorders: No HTN: No Hypercholesterolemia: No Liver Disease: No Psychiatric Problems: Yes (DEPRESSION) Seizures: No Thyroid Disease: No - Surgical History Abdominal Surgery: Yes (VERTICAL SLEEVE GASTRECTOMY 2012, ABDOMINOPLASTY/AND REVISION, LIPO X2,) Appendectomy: No Cardiac Surgery: No Cholecystectomy: No Lung Surgery: No Neurologic Surgery: No Orthopedic Surgery: Yes - Suicide/Smoking/Psychosocial Hx Smoking Status: No Smoking History: Current every day smoker Years of Tobacco Use: 24 Have you smoked in the past 12 months: Yes Number of Cigarettes Smoked Daily: 20 If you are a former smoker, when did you quit?: 15 'Breaking Loose' booklet given: 03/31/18 Hx Alcohol Use: No Drug/Substance Use Hx: No Substance Use Type: None Hx Substance Use Treatment: No ED Treatment Course - RADIOLOGY Radiology Studies Ordered: Category Date Time Status KNEE 2 POS-LEFT [RAD] Stat Radiology 05/08/18 22:52 Ordered *DC/Admit/Observation/Transfer - Discharge Dispostion Condition at time of disposition: Stable - Referrals Referrals: Zane Mckoy MD [Primary Care Provider] - - Patient Instructions - Post Discharge Activity
[2018-05-08 22:56] VITALS: TEMP 99.3; BMI 35.2
[2018-05-08] MEDS ORDERED: ACETAMINOPHEN 325 MG TABLET (FP) ONE (23:12)
[2018-05-08] MEDS ORDERED: amLODIPine BESYLATE 5 MG TABLET (FP) PO ONE (23:21)
[2018-05-08] MEDS ORDERED: amLODIPine BESYLATE 5 MG TABLET (FP) ONE ×2 (23:22→23:23)
[2018-05-08 23:26] VITALS: BP 150/106; PULSE 108
--- NOTE | 2018-05-08 23:43 | PDOC ---
*Physical Exam - Vital Signs Last Vital Signs Temp Pulse Resp BP Pulse Ox 99.3 F 108 H 16 150/106 100 05/08/18 22:47 05/08/18 23:25 05/08/18 23:25 05/08/18 23:25 05/08/18 22:47 ED Treatment Course - RADIOLOGY Radiology Studies Ordered: Category Date Time Status KNEE 2 POS-LEFT [RAD] Stat Radiology 05/08/18 22:52 Taken - Medications Given in the ED: ED Medications Discontinued Medications Generic Name Dose Route Start Last Admin Trade Name Santa PRN Reason Stop Dose Admin Acetaminophen 650 mg 05/08/18 22:53 05/08/18 23:15 Tylenol - PO 05/08/18 22:54 650 mg ONCE ONE Administration Amlodipine Besylate 5 mg 05/08/18 23:21 05/08/18 23:24 Norvasc - PO 05/08/18 23:22 5 mg ONCE ONE Administration *DC/Admit/Observation/Transfer Diagnosis at time of Disposition: Knee injury, HTN (hypertension) - Discharge Dispostion Disposition: HOME Condition at time of disposition: Stable - Prescriptions Prescriptions: Amlodipine Besylate [Norvasc -] 5 mg PO DAILY #30 tablet - Referrals Referrals: Zane Mckoy MD [Primary Care Provider] - Hood Callahan MD [Staff Physician] - - Patient Instructions Printed Discharge Instructions: High Blood Pressure, How to Use a Knee Immobilizer, How to Apply an Elastic Wrap on Knee - Post Discharge Activity Forms/Work/School Notes: Back to Work
== END 2018-05-08 23:31 | disposition home or self-care (01) ==
LOC: FER 22:34
PROC: 2W3QX1Z Immobilization of Right Lower Leg using Splint (ICD-10-PCS; principal; 2018-05-08)
DX: W22.03XA Walked into furniture, initial encounter (principal); Y93.89 Activity, other specified; Y92.9 Unspecified place or not applicable; Y99.0 Civilian activity done for income or pay
CPT/HCPCS: 73560-TC-LT-FY; 99281-25

== ENCOUNTER 2018-06-01 03:51 | Emergency (ER) | payer BC ==
--- NOTE | 2018-06-01 04:00 | PDOC ---
History of Present Illness - General Chief Complaint: Respiratory Stated Complaint: PRODUCTIVE COUGH/RIGHT KNEE PAIN/BURN ON RIGHT FOR Time Seen by Provider: 06/01/18 04:00 History Source: Patient Exam Limitations: No Limitations - History of Present Illness Initial Comments: 06/01/18 05:26 This is a 43-year-old female who comes in complaining of productive cough and shortness of breath. Patient had a recent upper respiratory tract infection for which she was given oral antibiotics. Patient said she finished the oral antibiotics recently but is not any better. Patient denies any chest pain, nausea, vomiting, diarrhea. Patient denies any abdominal pain. Patient is also complaining of a small superficial burn on her left arm and chronic right leg pain. Patient denies any fevers. Patient burned her arm yesterday and is requesting some ointment for it. Otherwise patient's chronic right leg pain is secondary to injury on the her job for which she has a workmen's comp case that is open and a workman's comp doctor that she sees and is evaluated and follows up with. PAST MEDICAL HISTORY: no significant history PAST SURGICAL HISTORY: no significant history FAMILY HISTORY: no pertinant history SOCIAL HISTORY: Pt lives with family and is employed. MEDICATIONS: reviewed ALLERGIES: As per nursing notes Review of Systems General: No fevers or chills, no weakness, no weight loss HEENT: No change in vision. No sore throat,. No ear pain CardioVascular: No chest pain or + shortness of breath and cough Respiratory:No cough, or wheezing. Gastrointestinal: no nausea, vomitting, diarrhea or constipation, No rectal bleeding Genitourinary: No dysuria, hematuria, or frequency Musculoskeletal: Right wrist and hand pain post fall Neurologic: No headache, vertigo, dizziness or loss of consciousness Psychiatric: nor depression Skin: No rashes or easy bruising Endocrine: no increased thirst or abnormal weight change Allergic: no skin or latex allergy All other systems reviewed and normal Exam: General: Well-nourished well-developed individual, no acute distress HEENT: Throat: Normal, tonsils normal, no erythema or exudate Neck: Supple, no meningeal signs, no lymphadenopathy Eyes::Pupils equal reactive and round, extraocular motion intact Chest: Nontender to palpation Cardiac: S1-S2 normal, regular rate and rhythm, no murmurs rubs or gallops Respiratory: There is diffuse expiratory wheezing throughout all lung pham. Abdomen: Soft, nondistended, normal bowel sounds, mild tenderness on palpation epigastric, no guarding or rebound Extremities: Warm, dry, no cyanosis, clubbing, or edema Skin: No rashes, small superficial burn approximately 1 cm in diameter on left arm there is no evidence of infection Neuro: Alert and oriented x3, CN II - XII intact, nonfocal exam with normal strength, normal sensation, normal reflexes, normal gait, Psych: Normal mood and affect 06/01/18 06:06 Reevaluation 06:00 Patient wheezing has improved but is still present post-nebs and steroids. Her O2 sat is approximately 98%. Chest x-ray shows possibly right lower lobe infiltrate versus chronic changes when comparison to old chest x-ray is most likely just chronic changes.. Patient given a gram ceftriaxone and discussed admission with her however she is saying she does not want to stay and will sign out AGAINST MEDICAL ADVICE rather than stay. EKG shows normal sinus rhythm at a rate of [address]-T wave changes normal intervals normal EKG. 06/01/18 06:39 Patient pulled out her IV before her antibiotics are finished. Patient was upset because I had told her I could not sign her workman's comp papers and give her anymore Tylenol for her workman's comp case. I told her that this was an open case and that paperwork had to be signed by her doctor that was assigned to her case not by the ER doctor. I told her I would give her time off for her pneumonia which was an emergent/ER condition but could not fill out paperwork for a chronic condition that already had a workmen's comp case that was open and she had a doctor assigned to her. Patient left the emergency department prior to signing her discharge paperwork. Past History - Past Medical History Allergies/Adverse Reactions: Allergies Allergy/AdvReac Type Severity Reaction Status Date / Time shellfish derived Allergy Intermediate Hives Verified 06/01/18 03:55 bupropion HCl Allergy Rash Verified 06/01/18 03:55 [From Wellbutrin] Home Medications: Ambulatory Orders Albuterol Sulfate [Proair Respiclick] 90 mcg IH PRN PRN 05/10/17 Zolpidem Tartrate [Ambien] 12.5 mg PO HS 06/04/17 Sertraline HCl [Zoloft -] 100 mg PO DAILY 06/11/17 cloNIDine HCL [Catapres -] 0.1 mg PO BID 06/11/17 Clonazepam [Klonopin] 1 mg PO BID 07/20/17 Sulfasalazine 500 mg PO BID 10/28/17 Gabapentin 500 mg PO DAILY 04/13/18 Leflunomide 20 mg PO DAILY 04/13/18 predniSONE [Deltasone -] 40 mg PO DAILY #10 tablet 05/01/18 Amlodipine Besylate [Norvasc -] 5 mg PO DAILY #30 tablet 05/08/18 Azithromycin [Zithromax 250mg Tablets -] 250 mg PO DAILY #6 tab 06/01/18 Anemia: No Asthma: Yes (USES INHALER,PROAIR, was unable to refill inhaler) Cancer: No Cardiac Disorders: No CVA: No COPD: No CHF: No Dementia: No Diabetes: No GI Disorders: Yes (GERD) Disorders: No HTN: No Hypercholesterolemia: No Liver Disease: No Psychiatric Problems: Yes (DEPRESSION) Seizures: No Thyroid Disease: No - Surgical History Abdominal Surgery: Yes (VERTICAL SLEEVE GASTRECTOMY 2012, ABDOMINOPLASTY/AND REVISION, LIPO X2,) Appendectomy: No Cardiac Surgery: No Cholecystectomy: No Lung Surgery: No Neurologic Surgery: No Orthopedic Surgery: Yes - Suicide/Smoking/Psychosocial Hx Smoking Status: No Smoking History: Current every day smoker Years of Tobacco Use: 24 Have you smoked in the past 12 months: Yes Number of Cigarettes Smoked Daily: 20 If you are a former smoker, when did you quit?: 15 'Breaking Loose' booklet given: 03/31/18 Hx Alcohol Use: No Drug/Substance Use Hx: No Substance Use Type: None Hx Substance Use Treatment: No ED Treatment Course - LABORATORY CBC & Chemistry Diagram: 06/01/18 04:20 06/01/18 04:20 *DC/Admit/Observation/Transfer Diagnosis at time of Disposition: Pneumonia Qualifiers: Pneumonia type: due to unspecified organism Laterality: right Lung location: lower lobe of lung Qualified Code(s): J18.1 - Lobar pneumonia, unspecified organism - Discharge Dispostion Disposition: HOME Condition at time of disposition: Stable Decision to Admit order: Yes - Referrals Referrals: Zane Mckoy MD [Primary Care Provider] - - Patient Instructions Additional Instructions: Go to the pharmacy and get her prescription for azithromycin taken as prescribed to take 2 tablets today and one tablet a day for the next 4 days. Continue your medications that your prescribed. Call your Workmen's Comp. doctor and get an appointment for follow-up if you need more time off duty or Workmen's Comp. case. Otherwise I have given you time off from work it through next Wednesday. Return to the emergency department immediately with ANY new, persistent or worsening symptoms. Continue any medications as previously prescribed by your physician. You should follow up with your primary doctor as soon as possible regarding today's emergency department visit. . Please make sure your doctor reviews the results of your emergency evaluation. Thank you for coming to the Emergency Department today for your care. It was a pleasure to see you today. Please note that your evaluation is INCOMPLETE until you follow-up with your doctor. - Post Discharge Activity Forms/Work/School Notes: Back to Work
[2018-06-01 04:05] VITALS: TEMP 99.4; BMI 35.2
[2018-06-01] MEDS ORDERED: methylPREDNISolone NA SUCC 125 MG/2 ML VIAL IVPUSH ONE (04:06)
[2018-06-01] MEDS ORDERED: ALBUTEROL SO4 2.5/IPRATROPIUM 0.5 INH SOL 3 ML VIAL.NEB. NEB ONE (04:07)
[2018-06-01] MEDS ORDERED: KETOROLAC TROMETHAMINE 30 MG/1 ML VIAL IVPUSH ONE (04:07)
[2018-06-01] MEDS ORDERED: SODIUM CHLORIDE 1,000 ML IV ONE (04:07)
[2018-06-01] MEDS ORDERED: predniSONE 20 MG TABLET (UD) PO ONE (04:09)
[2018-06-01] MEDS: ALBUTEROL SO4 2.5/IPRATROPIUM 0.5 INH SOL 3 ML VIAL.NEB. NEB SCH ×4 (04:24→05:39)
[2018-06-01] MEDS ORDERED: KETOROLAC TROMETHAMINE 30 MG/1 ML VIAL ONE (04:26)
[2018-06-01] MEDS ORDERED: methylPREDNISolone NA SUCC 125 MG/2 ML VIAL ONE (04:26)
[2018-06-01] MEDS: KETOROLAC TROMETHAMINE 60 MG/2 ML VIAL IM ONE ×2 (04:32→04:33)
[2018-06-01 05:22] LABS: EOS % 0.5 % (0-4.5); HEMATOCRIT 35.5 % (32.4-45.2); HEMOGLOBIN 11.4 GM/dL (10.7-15.3); LYMPH % 10.4 % (8-40); MCHC 32.2 g/dl (32.0-36.0); MEAN CELL VOLUME 92.9 fl (80-96); MEAN PLT VOLUME 9.8 fl (7.5-11.1); MONO % 6.2 % (3.8-10.2); NEUT % 81.9 % (42.8-82.8); PLATELET COUNT 232 K/MM3 (134-434); RBC 3.82 M/mm3 (3.60-5.2); RDW 21.5 % (11.6-15.6); WHITE BLOOD COUNT 12.7 K/mm3 (4.0-10.0)
[2018-06-01 05:35] VITALS: BP 132/83; PULSE 101
[2018-06-01 05:44] LABS: CALCIUM 8.3 mg/dL (8.5-10.1); CHLORIDE 104 mmol/L (98-107); POTASSIUM 3.9 mmol/L (3.5-5.1); SODIUM 138 mmol/L (136-145)
[2018-06-01 05:49] LABS: ANION GAP 9 MMOL/L (8-16); BILIRUBIN,TOTAL 0.4 mg/dL (0.2-1.0); BLOOD UREA NITROGEN 12 mg/dL (7-18); CO2 25 mmol/L (21-32); GLUCOSE,RANDOM 77 mg/dL (74-106); SGOT/AST 25 U/L (15-37); SGPT/ALT 25 U/L (12-78); TOT PROT 6.8 g/dl (6.4-8.2)
[2018-06-01 05:53] LABS: ALK PHOS 83 U/L (45-117); N-TERMINAL BNP 50.75 pg/ml (5-125)
[2018-06-01] MEDS ORDERED: ASPIRIN 81 MG CHEWABLE TABLETS ONE (06:01)
[2018-06-01] MEDS ORDERED: CEFTRIAXONE 1,000 MG in DEXTROSE 5%-WATER - 50 ML IVPB ONE (06:04)
[2018-06-01] MEDS ORDERED: cefTRIAXone SODIUM 1 GM VIAL ONE (06:04)
[2018-06-01] MEDS ORDERED: ASPIRIN 81 MG CHEWABLE TABLETS PO ONE (06:12)
--- NOTE | 2018-06-01 08:47 | EKG ---
Test Reason : Blood Pressure : / mmHG Vent. Rate : 094 BPM Atrial Rate : 094 BPM P-R Int : 118 ms QRS Dur : 086 ms QT Int : 374 ms P-R-T Axes : 025 -17 028 degrees QTc Int : 467 ms NORMAL SINUS RHYTHM NORMAL ECG WHEN COMPARED WITH ECG OF 18-FEB-2018 08:29, NO SIGNIFICANT CHANGE WAS FOUND Confirmed by PETER ANDRADE MD ([id number]) on 06/01/2018 8:46:49 AM Referred By: MD LOW Confirmed By:PETER ANDRADE MD
[2018-06-01 12:14] LABS: ANISOCYTOSIS 1+; MACROCYTOSIS 1+; PLATELET ESTIMATE NORMAL
== END 2018-06-01 06:43 | disposition home or self-care (01) ==
LOC: FER 03:51
PROC: 3E0F7GC Introduction of Other Therapeutic Substance into Respiratory Tract, Via Natural or Artificial Opening (ICD-10-PCS; principal; 2018-06-01)
PROC: 3E03329 Introduction of Other Anti-infective into Peripheral Vein, Percutaneous Approach (ICD-10-PCS; 2018-06-01)
PROC: 3E0333Z Introduction of Anti-inflammatory into Peripheral Vein, Percutaneous Approach (ICD-10-PCS; 2018-06-01)
PROC: 3E033GC Introduction of Other Therapeutic Substance into Peripheral Vein, Percutaneous Approach (ICD-10-PCS; 2018-06-01)
PROC: 3E0337Z Introduction of Electrolytic and Water Balance Substance into Peripheral Vein, Percutaneous Approach (ICD-10-PCS; 2018-06-01)
DX: J18.1 Lobar pneumonia, unspecified organism (principal); F17.210 Nicotine dependence, cigarettes, uncomplicated; F32.9 Major depressive disorder, single episode, unspecified; J45.909 Unspecified asthma, uncomplicated
CPT/HCPCS: 36415; 71045-TC-FY; 80053; 82550; 83880; 84484; 85025; 87040; 93005; 99281-25; J7030; J7620

== ENCOUNTER 2018-06-11 22:59 | Emergency (ER) | payer BC ==
--- NOTE | 2018-06-11 23:01 | PDOC ---
History of Present Illness - General History Source: Patient Exam Limitations: No Limitations - History of Present Illness Initial Comments: 06/11/18 23:38 The patient is a 43 year old female, with a significant past medical history of asthma, GERD, and depression, who presents to the emergency department with, cough and productive cough. As per patient, she was recently evaluated in the ED 06/01 for similar symptoms where she was given azithromycin (compliant) and finished her course of antibiotics. She reports her cough has not gotten better and has productive white phlegm. She also endorses wheezing, prompting her visit to the ED tonight. She denies recent fevers, chills, headache or dizziness. She denies recent nausea, vomit, diarrhea or constipation. She denies recent dysuria, frequency, urgency or hematuria. She denies recent chest pain. Allergies: Shellfish, Wellbutrin Past surgical history: Vertical sleeve gastrectomy 2011, Abdominoplasty/ and revision, Lipo x2. Social history: Current smoker (15 cigarettes per day). Denies EtOH use and recreational drug use. Primary Care Physician: Dr. Mckoy <Jesusita Pryor - Last Filed: 06/11/18 23:38> <Annika Hooks - Last Filed: 06/12/18 01:51> - General Chief Complaint: Cold Symptoms Stated Complaint: CHEST CONGESTION Time Seen by Provider: 06/11/18 23:01 Past History <Jesusita Pryor - Last Filed: 06/11/18 23:38> - Past Medical History Anemia: No Asthma: Yes (USES INHALER,PROAIR, was unable to refill inhaler) Cancer: No Cardiac Disorders: No CVA: No COPD: No CHF: No Dementia: No Diabetes: No GI Disorders: Yes (GERD) Disorders: No HTN: No Hypercholesterolemia: No Liver Disease: No Psychiatric Problems: Yes (DEPRESSION) Seizures: No Thyroid Disease: No - Surgical History Abdominal Surgery: Yes (VERTICAL SLEEVE GASTRECTOMY 2011, ABDOMINOPLASTY/AND REVISION, LIPO X2,) Appendectomy: No Cardiac Surgery: No Cholecystectomy: No Lung Surgery: No Neurologic Surgery: No Orthopedic Surgery: Yes - Suicide/Smoking/Psychosocial Hx Smoking Status: No Smoking History: Current every day smoker Years of Tobacco Use: 24 Have you smoked in the past 12 months: Yes Number of Cigarettes Smoked Daily: 20 If you are a former smoker, when did you quit?: 15 'Breaking Loose' booklet given: 03/31/18 Hx Alcohol Use: No Drug/Substance Use Hx: No Substance Use Type: None Hx Substance Use Treatment: No <Annika Hooks - Last Filed: 06/12/18 01:51> - Past Medical History Allergies/Adverse Reactions: Allergies Allergy/AdvReac Type Severity Reaction Status Date / Time shellfish derived Allergy Intermediate Hives Verified 06/01/18 03:55 bupropion HCl Allergy Rash Verified 06/01/18 03:55 [From Wellbutrin] Home Medications: Ambulatory Orders Albuterol Sulfate [Proair Respiclick] 90 mcg IH PRN PRN 05/10/17 Zolpidem Tartrate [Ambien] 12.5 mg PO HS 06/04/17 Sertraline HCl [Zoloft -] 100 mg PO DAILY 06/11/17 cloNIDine HCL [Catapres -] 0.1 mg PO BID 06/11/17 Clonazepam [Klonopin] 1 mg PO BID 07/20/17 Sulfasalazine 500 mg PO BID 10/28/17 Gabapentin 500 mg PO DAILY 04/13/18 Leflunomide 20 mg PO DAILY 04/13/18 Amlodipine Besylate [Norvasc -] 5 mg PO DAILY #30 tablet 05/08/18 Review of Systems - Review of Systems Able to Perform ROS?: Yes Comments:: 06/11/18 23:38 GENERAL/CONSTITUTIONAL: No fever or chills. No weakness. HEAD, EYES, EARS, NOSE AND THROAT: No change in vision. No ear pain or discharge. No sore throat. CARDIOVASCULAR: No chest pain or shortness of breath. +RESPIRATORY: Cough. Wheezing. No hemoptysis. GASTROINTESTINAL: No nausea, vomiting, diarrhea or constipation. GENITOURINARY: No dysuria, frequency, or change in urination. MUSCULOSKELETAL: No joint or muscle swelling or pain. No neck or back pain. SKIN: No rash NEUROLOGIC: No headache, vertigo, loss of consciousness, or change in strength/ sensation. ENDOCRINE: No increased thirst. No abnormal weight change. HEMATOLOGIC/LYMPHATIC: No anemia, easy bleeding, or history of blood clots. ALLERGIC/IMMUNOLOGIC: No hives or skin allergy. All Other Systems: Reviewed and Negative <Jesusita Pryor - Last Filed: 06/11/18 23:38> *Physical Exam - Vital Signs Last Vital Signs Temp Pulse Resp BP Pulse Ox 99.2 F 102 H 16 155/109 98 06/11/18 23:03 06/11/18 23:03 06/11/18 23:03 06/11/18 23:03 06/11/18 23:03 - Physical Exam Comments: 06/11/18 23:38 GENERAL: Awake, alert, and fully oriented, in no acute distress HEAD: No signs of trauma EYES: PERRLA, EOMI, sclera anicteric, conjunctiva clear ENT: Auricles normal inspection, hearing grossly normal, nares patent, oropharynx clear without exudates. Moist mucosa NECK: Normal ROM, supple, no lymphadenopathy, JVD, or masses +LUNGS: Diffuse expiratory wheezing. No crackles HEART: Regular rate and rhythm, normal S1 and S2, no murmurs, rubs or gallops ABDOMEN: Soft, nontender, normoactive bowel sounds. No guarding, no rebound. No masses EXTREMITIES: Normal range of motion, no edema. No clubbing or cyanosis. No cords, erythema, or tenderness NEUROLOGICAL: Cranial nerves II through XII grossly intact. Normal speech, normal gait SKIN: Warm, Dry, normal turgor, no rashes or lesions noted. <Jesusita Pryor - Last Filed: 06/11/18 23:38> ED Treatment Course - Medications Given in the ED: ED Medications Discontinued Medications Generic Name Dose Route Start Last Admin Trade Name Santa PRN Reason Stop Dose Admin Amlodipine Besylate 5 mg 06/11/18 23:17 06/11/18 23:26 Norvasc - PO 06/11/18 23:18 5 mg ONCE ONE Administration Dexamethasone 10 mg 06/11/18 23:17 06/11/18 23:25 Decadron Liquid - PO 06/11/18 23:18 10 mg ONCE ONE Administration Oxycodone/Acetaminophen 2 combo 06/11/18 23:17 06/11/18 23:26 Percocet 5/325 - PO 06/11/18 23:18 2 combo ONCE ONE Administration <Jesusita Pryor - Last Filed: 06/11/18 23:38> Medical Decision Making - Medical Decision Making 06/12/18 01:49 Pt comes with continued cough despite treatment for her pneumonia; however she has known asthma and she is a smoker and she is nocomplaint with her BP meds. Pt was treated therapeutically for her symptoms in the ER. CXR looks normal- same as her old. She has no fever in the ER. She was given amlodipine, as she has been skipping her dose at home. She also received terbutaline here as well as decadrol oral liquid. She was again advised to quit the smoking. Stable for d/c home. <Annika Hooks - Last Filed: 06/12/18 01:51> *DC/Admit/Observation/Transfer - Attestations Scribe Attestion: 06/11/18 23:39 Documentation prepared by Jesusita Pryor, acting as medical transport specialist for Annika Hooks MD. <Jesusita Pryor - Last Filed: 06/11/18 23:38> <Annika Hooks - Last Filed: 06/12/18 01:51> Diagnosis at time of Disposition: Asthma, Cough, Smoker - Discharge Dispostion Disposition: HOME Condition at time of disposition: Stable - Referrals Referrals: Zane Mckoy MD [Primary Care Provider] - - Patient Instructions Printed Discharge Instructions: Nutrition for Cigarette Smokers (Alternative Therapy), Cough, Support for Smokers Wanting to Quit - Post Discharge Activity
[2018-06-11 23:16] VITALS: BP 155/109; PULSE 102; TEMP 99.2; BMI 35.2
[2018-06-11] MEDS ORDERED: amLODIPine BESYLATE 5 MG TABLET (FP) PO ONE (23:17)
[2018-06-11] MEDS ORDERED: DEXAMETHASONE LIQUID 0.5 MG/5 ML 240 ML BULK BOTTLE PO ONE (23:17)
[2018-06-11] MEDS ORDERED: TERBUTALINE SULFATE 1 MG/1 ML VIAL SQ ONE (23:18)
[2018-06-11] MEDS ORDERED: amLODIPine BESYLATE 5 MG TABLET (FP) ONE (23:23)
[2018-06-11] MEDS ORDERED: DEXAMETHASONE SOD PHOSPHATE 10 MG/1 ML VIAL ONE (23:23)
[2018-06-11] MEDS ORDERED: SUMATRIPTAN SUCCINATE 6 MG/0.5 ML VIAL ONE (23:53)
== END 2018-06-12 00:05 | disposition home or self-care (01) ==
LOC: FER 22:59
PROC: 3E023GC Introduction of Other Therapeutic Substance into Muscle, Percutaneous Approach (ICD-10-PCS; principal; 2018-06-11)
DX: J45.909 Unspecified asthma, uncomplicated (principal); R05 Cough; F17.210 Nicotine dependence, cigarettes, uncomplicated; Z98.84 Bariatric surgery status; F32.9 Major depressive disorder, single episode, unspecified
CPT/HCPCS: 71046-TC-FY; 99281-25

== ENCOUNTER 2018-07-24 19:23 | Emergency (ER) | payer BC ==
--- NOTE | 2018-07-24 19:25 | PDOC ---
History of Present Illness - General History Source: Patient Exam Limitations: No Limitations - History of Present Illness Initial Comments: 07/24/18 19:41 A portion of this note was documented by scribe services under my direction. I have reviewed the details of the note, within reason, and agree with the documentation. The case summary and management plan written by me. X-ray: Reviewed by me no acute fracture or dislocation Assessment and plan: This is a 43-year-old female who injured her right foot when she tripped going down some stairs and twisted it. Patient had x-ray that was negative for any acute pathology. Patient's foot and ankle Abdiaziz wrapped and told to take anti-inflammatories ibuprofen or Aleve for Tylenol for pain <Alex Min I - Last Filed: 07/24/18 20:03> - History of Present Illness Initial Comments: The patient is a 43 year old female, well known to the ED, with a significant PMH of asthma,GERD and depression who presents to the emergency department with a right foot injury since earlier today. The patient reports that she was at home earlier today going down the stairs when she stumbled down face first. The patient reports that she landed on her right foot subsequently. The patient reports some associated pain and swelling. She states that she is unable to apply pressure on it to walk and is here for evaluation of possible fracture. She denies and loc, head injury, headache, dizziness, lightheadedness. She denies any other symptoms. She denies any fever chills, nausea,vomiting, diarrhea, constipation or any urinary symptoms. She denies any chest pain or shortness of breath.the patient denies any other complaints. PAST MEDICAL HISTORY: asthma, GERD, depression PAST SURGICAL HISTORY: no significant history FAMILY HISTORY: no pertinent history SOCIAL HISTORY: Pt lives with family and is employed. MEDICATIONS: reviewed ALLERGIES: As per nursing notes Adult ROS General: No fevers or chills, no weakness, no weight loss HEENT: No change in vision. No sore throat,. No ear pain CardioVascular: No chest pain or shortness of breath Respiratory:No cough, or wheezing. Gastrointestinal: no nausea, vomiting, diarrhea or constipation, No rectal bleeding Genitourinary: No dysuria, hematuria, or frequency Musculoskeletal: (+)right foot injury with pain and swelling Neurologic: No headache, vertigo, dizziness or loss of consciousness Psychiatric: nor depression Skin: No rashes or easy bruising Endocrine: no increased thirst or abnormal weight change Allergic: no skin or latex allergy All other systems reviewed and normal Basic PE GENERAL: The patient is awake, alert, and fully oriented, in no acute distress. HEAD: Normal with no signs of trauma. EYES: Pupils equal, round and reactive to light, extraocular movements intact, sclera anicteric, conjunctiva clear. EXTREMITIES:(+)tenderness to palpation to right foot over lateral foot. Mild swelling . no ankle swelling. Full ROM at ankle. Neurovascular intact. NEUROLOGICAL: Normal speech, normal gait. PSYCH: Normal mood, normal affect. SKIN: Warm, Dry, normal turgor, no rashes or lesions noted. Documentation prepared by Yadira Frias, acting as medical records secretary for Alex Min MD. 07/24/18 20:06 <Yadira Frias - Last Filed: 07/24/18 20:06> - General Chief Complaint: Injury Stated Complaint: r ankle/foot pain Time Seen by Provider: 07/24/18 19:25 Past History - Past Medical History Anemia: No Asthma: Yes (USES INHALER,PROAIR, was unable to refill inhaler) Cancer: No Cardiac Disorders: No CVA: No COPD: No CHF: No Dementia: No Diabetes: No GI Disorders: Yes (GERD) Disorders: No HTN: No Hypercholesterolemia: No Liver Disease: No Psychiatric Problems: Yes (DEPRESSION) Seizures: No Thyroid Disease: No - Surgical History Abdominal Surgery: Yes (VERTICAL SLEEVE GASTRECTOMY 2012, ABDOMINOPLASTY/AND REVISION, LIPO X2,) Appendectomy: No Cardiac Surgery: No Cholecystectomy: No Lung Surgery: No Neurologic Surgery: No Orthopedic Surgery: Yes - Suicide/Smoking/Psychosocial Hx Smoking Status: No Smoking History: Current every day smoker Years of Tobacco Use: 24 Have you smoked in the past 12 months: Yes Number of Cigarettes Smoked Daily: 20 If you are a former smoker, when did you quit?: 15 'Breaking Loose' booklet given: 03/31/18 Hx Alcohol Use: No Drug/Substance Use Hx: No Substance Use Type: None Hx Substance Use Treatment: No <Alex Min I - Last Filed: 07/24/18 20:03> <Yadira Frias - Last Filed: 07/24/18 20:06> - Past Medical History Allergies/Adverse Reactions: Allergies Allergy/AdvReac Type Severity Reaction Status Date / Time shellfish derived Allergy Intermediate Hives Verified 06/01/18 03:55 bupropion HCl Allergy Rash Verified 06/01/18 03:55 [From Wellbutrin] Home Medications: Ambulatory Orders Albuterol Sulfate [Proair Respiclick] 90 mcg IH PRN PRN 05/10/17 Zolpidem Tartrate [Ambien] 12.5 mg PO HS 06/04/17 Sertraline HCl [Zoloft -] 100 mg PO DAILY 06/11/17 cloNIDine HCL [Catapres -] 0.1 mg PO BID 06/11/17 Clonazepam [Klonopin] 1 mg PO BID 07/20/17 Sulfasalazine 500 mg PO BID 10/28/17 Gabapentin 500 mg PO DAILY 04/13/18 Leflunomide 20 mg PO DAILY 04/13/18 Amlodipine Besylate [Norvasc -] 5 mg PO DAILY #30 tablet 05/08/18 *Physical Exam - Vital Signs Last Vital Signs Temp Pulse Resp BP Pulse Ox 99 F 115 H 14 142/95 99 07/24/18 19:26 07/24/18 19:26 07/24/18 19:26 07/24/18 19:26 07/24/18 19:26 <Yadira Frias - Last Filed: 07/24/18 20:06> *DC/Admit/Observation/Transfer <Alex Min I - Last Filed: 07/24/18 20:03> <Yadira Frias - Last Filed: 07/24/18 20:06> Diagnosis at time of Disposition: Sprain of right foot Qualifiers: Encounter type: initial encounter Qualified Code(s): S93.601A - Unspecified sprain of right foot, initial encounter - Discharge Dispostion Disposition: HOME Condition at time of disposition: Good - Referrals Referrals: Zane Mckoy MD [Primary Care Provider] - - Patient Instructions Additional Instructions: Wear the Abdiaziz wrap in addition to that you can tape it for additional support. For the pain take ibuprofen or Tylenol and follow-up with your primary care doctor as needed. It is okay to bear weight as tolerated as it is not broken. Return to the emergency department immediately with ANY new, persistent or worsening symptoms. Continue any medications as previously prescribed by your physician. You should follow up with your primary doctor as soon as possible regarding today's emergency department visit. . Please make sure your doctor reviews the results of your emergency evaluation. Thank you for coming to the Emergency Department today for your care. It was a pleasure to see you today. Please note that your evaluation is INCOMPLETE until you follow-up with your doctor. - Post Discharge Activity
[2018-07-24 19:37] VITALS: BP 142/95; PULSE 115; TEMP 99; BMI 29.0
== END 2018-07-24 20:08 | disposition home or self-care (01) ==
LOC: FER 19:23
DX: S93.601A Unspecified sprain of right foot, initial encounter (principal); W10.9XXA Fall (on) (from) unspecified stairs and steps, initial encounter; Y93.89 Activity, other specified; Y92.9 Unspecified place or not applicable; F17.210 Nicotine dependence, cigarettes, uncomplicated; F41.9 Anxiety disorder, unspecified; K21.9 Gastro-esophageal reflux disease without esophagitis; J45.909 Unspecified asthma, uncomplicated
CPT/HCPCS: 73630-TC-RT-FY; 99282-25

== ENCOUNTER 2018-09-23 04:56 | Observation (INO) | payer BC ==
[2018-09-23 05:10] VITALS: BMI 35.3
--- NOTE | 2018-09-23 05:23 | PDOC ---
History of Present Illness - General History Source: Patient Exam Limitations: No Limitations - History of Present Illness Initial Comments: 09/23/18 05:18 This is a 43 YOF with h/o suicidal ideation and cutting gestures, who was BIBEMS for reported intentional overdose of prescription medication. She states that she took #60 Klonopin 1 mg tablets, and #30 Ambien 10 mg tablets, as well as an unknown dose of Unisom. She states that she took the medications with the intent of hurting herself because she and her girlfriend . Presents with multiple empty prescription bottles for Ambien. She endorses suicidal ideation at this time but denies any other symptoms. <Jessa Maldonado - Last Filed: 09/23/18 06:53> <Ricardo Anderson - Last Filed: 09/23/18 08:39> - General Chief Complaint: Suicidal Stated Complaint: SUICIDAL IDEATIONS Time Seen by Provider: 09/23/18 05:15 Past History - Past Medical History Anemia: No Asthma: Yes (USES INHALER,PROAIR, was unable to refill inhaler) Cancer: No Cardiac Disorders: No CVA: No COPD: No CHF: No Dementia: No Diabetes: No GI Disorders: Yes (GERD) Disorders: No HTN: No Hypercholesterolemia: No Liver Disease: No Psychiatric Problems: Yes (DEPRESSION) Seizures: No Thyroid Disease: No - Surgical History Abdominal Surgery: Yes (VERTICAL SLEEVE GASTRECTOMY 2012, ABDOMINOPLASTY/AND REVISION, LIPO X2,) Appendectomy: No Cardiac Surgery: No Cholecystectomy: No Lung Surgery: No Neurologic Surgery: No Orthopedic Surgery: Yes - Suicide/Smoking/Psychosocial Hx Smoking Status: No Smoking History: Never smoked Years of Tobacco Use: 24 Have you smoked in the past 12 months: No Number of Cigarettes Smoked Daily: 20 If you are a former smoker, when did you quit?: 15 Information on smoking cessation initiated: No 'Breaking Loose' booklet given: 03/31/18 Hx Alcohol Use: No Drug/Substance Use Hx: No Substance Use Type: None Hx Substance Use Treatment: No <Jessa Maldonado - Last Filed: 09/23/18 06:53> <Ricardo Anderson - Last Filed: 09/23/18 08:39> - Past Medical History Allergies/Adverse Reactions: Allergies Allergy/AdvReac Type Severity Reaction Status Date / Time shellfish derived Allergy Intermediate Hives Verified 09/23/18 05:04 bupropion HCl Allergy Rash Verified 09/23/18 05:04 [From Wellbutrin] Home Medications: Ambulatory Orders Albuterol Sulfate [Proair Respiclick] 90 mcg IH PRN PRN 05/10/17 Zolpidem Tartrate [Ambien] 12.5 mg PO HS 06/04/17 Sertraline HCl [Zoloft -] 100 mg PO DAILY 06/11/17 cloNIDine HCL [Catapres -] 0.1 mg PO BID 06/11/17 Clonazepam [Klonopin] 1 mg PO BID 07/20/17 Sulfasalazine 500 mg PO BID 10/28/17 Gabapentin 500 mg PO DAILY 04/13/18 Leflunomide 20 mg PO DAILY 04/13/18 Amlodipine Besylate [Norvasc -] 5 mg PO DAILY #30 tablet 05/08/18 Review of Systems - Review of Systems Able to Perform ROS?: Yes <Jessa Maldonado - Last Filed: 09/23/18 06:53> *Physical Exam - Vital Signs Last Vital Signs Temp Pulse Resp BP Pulse Ox 97.9 F 104 H 16 122/86 95 09/23/18 05:04 09/23/18 05:04 09/23/18 05:04 09/23/18 05:04 09/23/18 05:04 <Jessa Maldonado - Last Filed: 09/23/18 06:53> - Vital Signs Last Vital Signs Temp Pulse Resp BP Pulse Ox 97.9 F 104 H 16 122/86 95 09/23/18 05:04 09/23/18 05:04 09/23/18 05:04 09/23/18 05:04 09/23/18 05:04 <Ricardo Anderson - Last Filed: 09/23/18 08:39> Moderate Sedation - Procedure Monitoring Vital Signs: Procedure Monitoring Vital Signs Temperature 97.9 F 09/23/18 05:04 Pulse Rate 104 H 09/23/18 05:04 Respiratory Rate 16 09/23/18 05:04 Blood Pressure 122/86 09/23/18 05:04 O2 Sat by Pulse Oximetry (%) 95 09/23/18 05:04 <Jessa Maldonado - Last Filed: 09/23/18 06:53> - Procedure Monitoring Vital Signs: Procedure Monitoring Vital Signs Temperature 97.9 F 09/23/18 05:04 Pulse Rate 104 H 09/23/18 05:04 Respiratory Rate 16 09/23/18 05:04 Blood Pressure 122/86 09/23/18 05:04 O2 Sat by Pulse Oximetry (%) 95 09/23/18 05:04 <Ricardo Anderson - Last Filed: 09/23/18 08:39> ED Treatment Course - LABORATORY CBC & Chemistry Diagram: 09/23/18 06:00 09/23/18 06:00 <Jessa Maldonado - Last Filed: 09/23/18 06:53> - LABORATORY CBC & Chemistry Diagram: 09/23/18 06:00 09/23/18 06:00 - ADDITIONAL ORDERS Additional order review: Laboratory Results 09/23/18 09/23/18 09/23/18 06:28 06:00 06:00 PT with INR INR VBG pH 7.37 POC VBG pCO2 40.1 POC VBG pO2 52.0 H Mixed VBG HCO3 22.4 Sodium Potassium Chloride Carbon Dioxide Anion Gap BUN Creatinine Creat Clearance w eGFR POC Glucometer [id number] Random Glucose Calcium Total Bilirubin AST ALT Alkaline Phosphatase Total Protein Albumin Urine Color Urine Appearance Urine pH Ur Specific [place] Urine Protein Urine Glucose (UA) Urine Ketones Urine Blood Urine Nitrite Urine Bilirubin Urine Urobilinogen Ur Leukocyte Esterase Urine WBC (Auto) Urine RBC (Auto) Ur Epithelial Cells Urine Bacteria Hyaline Casts Urine Mucus Salicylates 2.2 L Opiates Screen Methadone Screen Acetaminophen < 10 L Barbiturate Screen Phencyclidine Screen Ur Amphetamines Screen MDMA (Ecstasy) Screen Benzodiazepines Screen Cocaine Screen U Marijuana (THC) Screen Alcohol, Quantitative 09/23/18 09/23/18 09/23/18 06:00 06:00 06:00 PT with INR INR VBG pH POC VBG pCO2 POC VBG pO2 Mixed VBG HCO3 Sodium 139 Potassium 3.6 Chloride 107 Carbon Dioxide 22 Anion Gap 11 BUN 13 Creatinine 0.9 Creat Clearance w eGFR > 60 POC Glucometer Random Glucose 73 L Calcium 8.6 Total Bilirubin 0.5 AST 33 ALT 33 Alkaline Phosphatase 100 Total Protein 7.5 Albumin 3.4 Urine Color Urine Appearance Urine pH Ur Specific [place] Urine Protein Urine Glucose (UA) Urine Ketones Urine Blood Urine Nitrite Urine Bilirubin Urine Urobilinogen Ur Leukocyte Esterase Urine WBC (Auto) Urine RBC (Auto) Ur Epithelial Cells Urine Bacteria Hyaline Casts Urine Mucus Salicylates Opiates Screen Negative Methadone Screen Negative Acetaminophen Barbiturate Screen Negative Phencyclidine Screen Negative Ur Amphetamines Screen Negative MDMA (Ecstasy) Screen Negative Benzodiazepines Screen Positive A* Cocaine Screen Negative U Marijuana (THC) Screen Negative Alcohol, Quantitative 64.3 H 09/23/18 09/23/18 06:00 06:00 PT with INR 12.00 INR 1.02 VBG pH POC VBG pCO2 POC VBG pO2 Mixed VBG HCO3 Sodium Potassium Chloride Carbon Dioxide Anion Gap BUN Creatinine Creat Clearance w eGFR POC Glucometer Random Glucose Calcium Total Bilirubin AST ALT Alkaline Phosphatase Total Protein Albumin Urine Color Straw Urine Appearance Slcloudy Urine pH 6.0 Ur Specific [place] 1.003 L Urine Protein Negative Urine Glucose (UA) Negative Urine Ketones Negative Urine Blood 1+ H Urine Nitrite Negative Urine Bilirubin Negative Urine Urobilinogen Negative Ur Leukocyte Esterase Negative Urine WBC (Auto) 2 Urine RBC (Auto) 2 Ur Epithelial Cells Rare Urine Bacteria Rare Hyaline Casts 3 Urine Mucus Rare Salicylates Opiates Screen Methadone Screen Acetaminophen Barbiturate Screen Phencyclidine Screen Ur Amphetamines Screen MDMA (Ecstasy) Screen Benzodiazepines Screen Cocaine Screen U Marijuana (THC) Screen Alcohol, Quantitative 09/23/18 09/23/18 06:28 06:00 RBC 4.07 MCV 96.6 H MCHC 32.3 RDW 14.6 D MPV 9.5 Neutrophils % 61.8 D Lymphocytes % 25.1 D Monocytes % 10.8 H Eosinophils % 1.0 D Basophils % 1.3 POC Glucometer 111.38801 - Medications Given in the ED: ED Medications Discontinued Medications Generic Name Dose Route Start Last Admin Trade Name [place] PRN Reason Stop Dose Admin Albuterol/Ipratropium 1 amp 09/23/18 05:45 09/23/18 07:00 Duoneb - NEB 09/23/18 05:46 Not Given ONCE ONE <Ricardo Anderson - Last Filed: 09/23/18 08:39> Medical Decision Making - Medical Decision Making 09/23/18 05:25 Pt p/w drug/medication overdose. Initial Vital Signs Temp Pulse Resp BP Pulse Ox 97.9 F 104 H 16 122/86 95 09/23/18 05:04 09/23/18 05:04 09/23/18 05:04 09/23/18 05:04 09/23/18 05:04 Exam: As noted in Physical Exam section. Mental status Exam: As noted in Physical Exam section.denies self harm attempt, SI/HI, plan, or SI/HI history DDX IBNLT: overdose, overuse, medication interaction, change in medication metabolism, coingestion, etc W/U ordered: labs as noted below, EKG, 1:1, monitor 09/23/18 05:36 Consulted [facility] *Klonopin and Ambien: watch for somnolence, slurred speech, confusion, hypotension, coma, respiratory depression. *Order a CPK if she has ALOC *Monitor renal function, UOP *Unasom overdose: watch for anticholinergic effects, QRS widening, ventricular dysrhythmias *24 hours admission EKG: Reviewed; results as noted in ECG Review section. Labs: Pending I called [facility] Mclaughlin, unable to reach him. Patient's care endorsed to Dr. Anderson. <Jessa Maldonado - Last Filed: 09/23/18 06:53> *DC/Admit/Observation/Transfer <Jessa Maldonado - Last Filed: 09/23/18 06:53> - Discharge Dispostion Decision to Admit order: Yes <Ricardo Anderson - Last Filed: 09/23/18 08:39> Diagnosis at time of Disposition: Suicidal behavior with attempted self-injury, Benzodiazepine (tranquilizer) overdose - Referrals Referrals: Zane Mckoy MD [Primary Care Provider] - - Patient Instructions - Post Discharge Activity Forms/Work/School Notes: My Personal Safety Plan
--- NOTE | 2018-09-23 05:32 | PDOC ---
Attending Attestation - Resident Resident Name: Jessa Maldonado - ED Attending Attestation I have performed the following: I have examined & evaluated the patient, The case was reviewed & discussed with the resident, I agree w/resident's findings & plan, Exceptions are as noted - HPI HPI: 09/23/18 05:24 43y F hx of asthma, acid refle, sleep apnea,htn, fibromyalgia presents with Suicide attempt. pt states she was distraught due to her partner leaving. She took 60 tablets of 1mg klonapin, 30 tablets of 10mg ambien and 4 x 25mg unasom prior to midnight. pt notes she was talking to a frend on hte phone who was the one who called [facility]. pt denies any ingestions. and notes she took these meds to ' end it all'. pt denies any current complaints including cp, sob, n/v, abd pain , dairrhea, melean, bpr. denies acetaminophen, asa ingestion - Physicial Exam PE: 09/23/18 05:32 GENERAL: The patient is awake, alert, and fully oriented, Nontoxic - in no acute distress, slurring her speech HEAD: Normocephalic, atraumatic. EYES: extraocular movements intact, sclera anicteric, conjunctiva clear. ENT: Normal voice, Moist mucous membranes. NECK: Normal range of motion, supple LUNGS: Breath sounds equal, clear to auscultation bilaterally. No wheezes, no rhonchi, no rales. HEART: Regular rate and rhythm, normal S1 and S2 without murmur, rub or gallop. ABDOMEN: Soft, nontender, normoactive bowel sounds. No guarding, no rebound. . No CVA tenderness EXTREMITIES: Normal range of motion, no edema. No clubbing or cyanosis. No cords, erythema, or tenderness. NEUROLOGICAL: No facial assymetry, Normal speech, PSYCH: Normal mood, normal affect. SKIN: Warm, Dry, normal turgor, - Critical Care Time Total Critical Care Time: 45 Critical Care Statement: The care of this patient involved high complexity decision making to prevent further life threatening deterioration of the patient 's condition and/or to evaluate & treat vital organ system(s) failure or risk of failure. - Medical Decision Making resident Honorio discussed with poisons anticipate adission for further mangment, psych consult, 1:1 placed 09/23/18 07:24 pt initially was aggitated, after discussion pt was better. currently sleeping on a monitor. normal vitals labs reviewed and essentially unremarkable will continue monitoring pending pych consultation Case discussed in detail with admitting physician including history, physical exam and ancillary studies. Admitting physician has assumed care for the patient, will follow all pending diagnostics and will complete the evaluation and treatment. Heart Score/ECG Review - ECG Impressions Comment:: 09/23/18 05:34 Twelve-lead EKG was performed and reviewed by me. There is normal sinus rhythm with a rate of 102 left axis deviation no terminal R in avR
[2018-09-23] MEDS ORDERED: ALBUTEROL SO4 2.5/IPRATROPIUM 0.5 INH SOL 3 ML VIAL.NEB. NEB ONE (05:45)
[2018-09-23 06:26] LABS: BASO % 1.3 % (0-2.0); HEMATOCRIT 39.3 % (32.4-45.2); HEMOGLOBIN 12.7 GM/dL (10.7-15.3); LYMPH % 25.1 % (8-40); MCH 31.2 pg (25.7-33.7); MCHC 32.3 g/dl (32.0-36.0); MEAN CELL VOLUME 96.6 fl (80-96); MEAN PLT VOLUME 9.5 fl (7.5-11.1); MONO % 10.8 % (3.8-10.2); NEUT % 61.8 % (42.8-82.8); PLATELET COUNT 262 K/MM3 (134-434); RBC 4.07 M/mm3 (3.60-5.2); RDW 14.6 % (11.6-15.6); WHITE BLOOD COUNT 7.2 K/mm3 (4.0-10.0)
[2018-09-23 06:28] LABS: URINE APPEARANCE SLCLOUDY; URINE BILIRUBIN NEGATIVE (<2.0 mg/dL); URINE COLOR STRAW; URINE GLUCOSE (UA) NEGATIVE (NEGATIVE); URINE KETONE NEGATIVE (NEGATIVE); URINE LEUK ESTERASE NEGATIVE (NEGATIVE); URINE NITRITE NEGATIVE (NEGATIVE); URINE PROTEIN NEGATIVE (NEGATIVE); URINE UROBILINOGEN NEGATIVE mg/dL (0.2-1.0)
[2018-09-23 06:29] LABS: VENOUS PC02 40.1 mmHg (38-52); VENOUS PH 7.37 (7.32-7.42)
[2018-09-23 06:44] LABS: COCAINE, UR NEGATIVE ng/ml (CUTOFF=300); METHADONE, UR NEGATIVE ng/ml (CUTOFF=300); OPIATES, URI NEGATIVE ng/ml (CUTOFF=300); PHENCYCLIDINE,URINE NEGATIVE ng/ml (CUTOFF=25); URINE AMPHETAMINES NEGATIVE ng/ml (CUTOFF=500); URINE BARBITURATES NEGATIVE ng/ml (CUTOFF=200)
[2018-09-23 06:49] LABS: EPI CELLS RARE /HPF (FEW); URINE BACTERIA RARE /hpf (NONE SEEN); URINE HYALINE CAST 3 /lpf; URINE MUCUS RARE
[2018-09-23 06:51] LABS: URINE BENZODIAZEPINES POSITIVE ng/ml (CUTOFF=200)
[2018-09-23 07:21] LABS: ALBUMIN 3.4 g/dl (3.4-5.0); ALK PHOS 100 U/L (45-117); ANION GAP 11 MMOL/L (8-16); BILIRUBIN,TOTAL 0.5 mg/dL (0.2-1); BLOOD UREA NITROGEN 13 mg/dL (7-18); CALCIUM 8.6 mg/dL (8.5-10.1); CHLORIDE 107 mmol/L (98-107); CO2 22 mmol/L (21-32); CREATININE 0.9 mg/dL (0.55-1.3); GLUCOSE,RANDOM 73 mg/dL (74-106); INR 1.02 (0.83-1.09); POTASSIUM 3.6 mmol/L (3.5-5.1); SGOT/AST 33 U/L (15-37); SGPT/ALT 33 U/L (13-61); SODIUM 139 mmol/L (136-145); TOT PROT 7.5 g/dl (6.4-8.2)
--- NOTE | 2018-09-23 08:05 | PDOC ---
*Physical Exam - Vital Signs Last Vital Signs Temp Pulse Resp BP Pulse Ox 97.9 F 104 H 16 122/86 95 09/23/18 05:04 09/23/18 05:04 09/23/18 05:04 09/23/18 05:04 09/23/18 05:04 <Ricardo Anderson - Last Filed: 09/23/18 08:40> - Vital Signs Last Vital Signs Temp Pulse Resp BP Pulse Ox 97.9 F 103 H 18 143/83 98 09/23/18 05:04 09/23/18 11:24 09/23/18 11:24 09/23/18 11:24 09/23/18 11:24 <Jorge Davis - Last Filed: 09/23/18 16:09> ED Treatment Course - LABORATORY CBC & Chemistry Diagram: 09/23/18 06:00 09/23/18 06:00 - ADDITIONAL ORDERS Additional order review: Laboratory Results 09/23/18 09/23/18 09/23/18 06:28 06:00 06:00 PT with INR INR VBG pH 7.37 POC VBG pCO2 40.1 POC VBG pO2 52.0 H Mixed VBG HCO3 22.4 Sodium Potassium Chloride Carbon Dioxide Anion Gap BUN Creatinine Creat Clearance w eGFR POC Glucometer 111.58990 Random Glucose Calcium Total Bilirubin AST ALT Alkaline Phosphatase Total Protein Albumin Urine Color Urine Appearance Urine pH Ur Specific [place] Urine Protein Urine Glucose (UA) Urine Ketones Urine Blood Urine Nitrite Urine Bilirubin Urine Urobilinogen Ur Leukocyte Esterase Urine WBC (Auto) Urine RBC (Auto) Ur Epithelial Cells Urine Bacteria Hyaline Casts Urine Mucus Salicylates 2.2 L Opiates Screen Methadone Screen Acetaminophen < 10 L Barbiturate Screen Phencyclidine Screen Ur Amphetamines Screen MDMA (Ecstasy) Screen Benzodiazepines Screen Cocaine Screen U Marijuana (THC) Screen Alcohol, Quantitative 09/23/18 09/23/18 09/23/18 06:00 06:00 06:00 PT with INR INR VBG pH POC VBG pCO2 POC VBG pO2 Mixed VBG HCO3 Sodium 139 Potassium 3.6 Chloride 107 Carbon Dioxide 22 Anion Gap 11 BUN 13 Creatinine 0.9 Creat Clearance w eGFR > 60 POC Glucometer Random Glucose 73 L Calcium 8.6 Total Bilirubin 0.5 AST 33 ALT 33 Alkaline Phosphatase 100 Total Protein 7.5 Albumin 3.4 Urine Color Urine Appearance Urine pH Ur Specific [place] Urine Protein Urine Glucose (UA) Urine Ketones Urine Blood Urine Nitrite Urine Bilirubin Urine Urobilinogen Ur Leukocyte Esterase Urine WBC (Auto) Urine RBC (Auto) Ur Epithelial Cells Urine Bacteria Hyaline Casts Urine Mucus Salicylates Opiates Screen Negative Methadone Screen Negative Acetaminophen Barbiturate Screen Negative Phencyclidine Screen Negative Ur Amphetamines Screen Negative MDMA (Ecstasy) Screen Negative Benzodiazepines Screen Positive A* Cocaine Screen Negative U Marijuana (THC) Screen Negative Alcohol, Quantitative 64.3 H 09/23/18 09/23/18 06:00 06:00 PT with INR 12.00 INR 1.02 VBG pH POC VBG pCO2 POC VBG pO2 Mixed VBG HCO3 Sodium Potassium Chloride Carbon Dioxide Anion Gap BUN Creatinine Creat Clearance w eGFR POC Glucometer Random Glucose Calcium Total Bilirubin AST ALT Alkaline Phosphatase Total Protein Albumin Urine Color Straw Urine Appearance Slcloudy Urine pH 6.0 Ur Specific [place] 1.003 L Urine Protein Negative Urine Glucose (UA) Negative Urine Ketones Negative Urine Blood 1+ H Urine Nitrite Negative Urine Bilirubin Negative Urine Urobilinogen Negative Ur Leukocyte Esterase Negative Urine WBC (Auto) 2 Urine RBC (Auto) 2 Ur Epithelial Cells Rare Urine Bacteria Rare Hyaline Casts 3 Urine Mucus Rare Salicylates Opiates Screen Methadone Screen Acetaminophen Barbiturate Screen Phencyclidine Screen Ur Amphetamines Screen MDMA (Ecstasy) Screen Benzodiazepines Screen Cocaine Screen U Marijuana (THC) Screen Alcohol, Quantitative 09/23/18 09/23/18 06:28 06:00 RBC 4.07 MCV 96.6 H MCHC 32.3 RDW 14.6 D MPV 9.5 Neutrophils % 61.8 D Lymphocytes % 25.1 D Monocytes % 10.8 H Eosinophils % 1.0 D Basophils % 1.3 POC Glucometer 111.55966 - Medications Given in the ED: ED Medications Discontinued Medications Generic Name Dose Route Start Last Admin Trade Name Freq PRN Reason Stop Dose Admin Albuterol/Ipratropium 1 amp 09/23/18 05:45 09/23/18 07:00 Duoneb - NEB 09/23/18 05:46 Not Given ONCE ONE <Ricardo Anderson - Last Filed: 09/23/18 08:40> - LABORATORY CBC & Chemistry Diagram: 09/23/18 06:00 09/23/18 06:00 - ADDITIONAL ORDERS Additional order review: Laboratory Results 1209/23/18 09/23/18 06:28 06:00 06:00 PT with INR INR VBG pH 7.37 POC VBG pCO2 40.1 POC VBG pO2 52.0 H Mixed VBG HCO3 22.4 Sodium Potassium Chloride Carbon Dioxide Anion Gap BUN Creatinine Creat Clearance w eGFR POC Glucometer 111.47388 Random Glucose Calcium Total Bilirubin AST ALT Alkaline Phosphatase Total Protein Albumin Urine Color Urine Appearance Urine pH Ur Specific [place] Urine Protein Urine Glucose (UA) Urine Ketones Urine Blood Urine Nitrite Urine Bilirubin Urine Urobilinogen Ur Leukocyte Esterase Urine WBC (Auto) Urine RBC (Auto) Ur Epithelial Cells Urine Bacteria Hyaline Casts Urine Mucus Salicylates 2.2 L Opiates Screen Methadone Screen Acetaminophen < 10 L Barbiturate Screen Phencyclidine Screen Ur Amphetamines Screen MDMA (Ecstasy) Screen Benzodiazepines Screen Cocaine Screen U Marijuana (THC) Screen Alcohol, Quantitative 09/23/18 09/23/18 09/23/18 06:00 06:00 06:00 PT with INR INR VBG pH POC VBG pCO2 POC VBG pO2 Mixed VBG HCO3 Sodium 139 Potassium 3.6 Chloride 107 Carbon Dioxide 22 Anion Gap 11 BUN 13 Creatinine 0.9 Creat Clearance w eGFR > 60 POC Glucometer Random Glucose 73 L Calcium 8.6 Total Bilirubin 0.5 AST 33 ALT 33 Alkaline Phosphatase 100 Total Protein 7.5 Albumin 3.4 Urine Color Urine Appearance Urine pH Ur Specific [place] Urine Protein Urine Glucose (UA) Urine Ketones Urine Blood Urine Nitrite Urine Bilirubin Urine Urobilinogen Ur Leukocyte Esterase Urine WBC (Auto) Urine RBC (Auto) Ur Epithelial Cells Urine Bacteria Hyaline Casts Urine Mucus Salicylates Opiates Screen Negative Methadone Screen Negative Acetaminophen Barbiturate Screen Negative Phencyclidine Screen Negative Ur Amphetamines Screen Negative MDMA (Ecstasy) Screen Negative Benzodiazepines Screen Positive A* Cocaine Screen Negative U Marijuana (THC) Screen Negative Alcohol, Quantitative 64.3 H 09/23/18 09/23/18 06:00 06:00 PT with INR 12.00 INR 1.02 VBG pH POC VBG pCO2 POC VBG pO2 Mixed VBG HCO3 Sodium Potassium Chloride Carbon Dioxide Anion Gap BUN Creatinine Creat Clearance w eGFR POC Glucometer Random Glucose Calcium Total Bilirubin AST ALT Alkaline Phosphatase Total Protein Albumin Urine Color Straw Urine Appearance Slcloudy Urine pH 6.0 Ur Specific [place] 1.003 L Urine Protein Negative Urine Glucose (UA) Negative Urine Ketones Negative Urine Blood 1+ H Urine Nitrite Negative Urine Bilirubin Negative Urine Urobilinogen Negative Ur Leukocyte Esterase Negative Urine WBC (Auto) 2 Urine RBC (Auto) 2 Ur Epithelial Cells Rare Urine Bacteria Rare Hyaline Casts 3 Urine Mucus Rare Salicylates Opiates Screen Methadone Screen Acetaminophen Barbiturate Screen Phencyclidine Screen Ur Amphetamines Screen MDMA (Ecstasy) Screen Benzodiazepines Screen Cocaine Screen U Marijuana (THC) Screen Alcohol, Quantitative 09/23/18 09/23/18 06:28 06:00 RBC 4.07 MCV 96.6 H MCHC 32.3 RDW 14.6 D MPV 9.5 Neutrophils % 61.8 D Lymphocytes % 25.1 D Monocytes % 10.8 H Eosinophils % 1.0 D Basophils % 1.3 POC Glucometer 111.03045 - Medications Given in the ED: ED Medications Discontinued Medications Generic Name Dose Route Start Last Admin Trade Name Freq PRN Reason Stop Dose Admin Albuterol/Ipratropium 1 amp 09/23/18 05:45 09/23/18 07:00 Duoneb - NEB 09/23/18 05:46 Not Given ONCE ONE Amlodipine Besylate 10 mg 09/23/18 11:00 09/23/18 11:25 Norvasc - PO 09/23/18 11:01 10 mg ONCE ONE Administration Gabapentin 400 mg 09/23/18 11:00 09/23/18 11:09 Neurontin - PO 09/23/18 11:01 400 mg ONCE ONE Administration Haloperidol 5 mg 09/23/18 09:36 09/23/18 09:54 Haldol Injection (Fast Acting) - IM 09/23/18 09:37 Not Given ONCE ONE Haloperidol 10 mg 09/23/18 10:50 09/23/18 11:26 Haldol Liquid - PO 09/23/18 10:51 Not Given ONCE ONE Lorazepam 2 mg 09/23/18 11:18 09/23/18 11:25 Ativan Injection - IM 09/23/18 11:19 2 mg ONCE ONE Administration Losartan Potassium 100 mg 09/23/18 12:28 09/23/18 12:30 Cozaar - PO 09/23/18 12:29 100 mg ONCE ONE Administration Nicotine 14 mg 09/23/18 10:51 09/23/18 11:35 Nicoderm Patch - TD 09/23/18 10:52 14 mg ONCE ONE Administration Ranitidine HCl 150 mg 09/23/18 11:03 09/23/18 11:25 Zantac - PO 09/23/18 11:04 150 mg ONCE ONE Administration Sertraline HCl 100 mg 09/23/18 11:08 09/23/18 11:35 Zoloft - PO 09/23/18 11:09 100 mg ONCE ONE Administration Trazodone HCl 100 mg 09/23/18 11:18 09/23/18 11:35 Desyrel - PO 09/23/18 11:19 100 mg ONCE ONE Administration <Jorge Davis - Last Filed: 09/23/18 16:09> Medical Decision Making - Medical Decision Making 09/23/18 08:04 Second call to Carlos Pitts made, left message. 09/23/18 08:[address] Gary who accepted the patient, admitted to Med Surg obs., as per recommendation [place] poison control to be seen observed for 24h. Spoke to Arnoldo Ramos, at 8:38am who will come evaluate the patient. <Ricardo Anderson - Last Filed: 09/23/18 08:40> - Medical Decision Making 09/23/18 16:06 Addendum. Pt. very agitated in the ED. Arguing with staff and patient. Pt. provided with medication for anxiolysis. EKG demonstrates prolonged qtc, Haldol contraindicated. Pt. given trazadone and IM ativan. Pending psych consultation and medicine bed placement. <Jorge Davis - Last Filed: 09/23/18 16:09> *DC/Admit/Observation/Transfer <Ricardo Anderson - Last Filed: 09/23/18 08:40> <Jorge Davis - Last Filed: 09/23/18 16:09> Diagnosis at time of Disposition: Suicidal behavior with attempted self-injury, Benzodiazepine (tranquilizer) overdose
[2018-09-23] MEDS ORDERED: HALOPERIDOL LACTATE 5 MG/ML ONE (09:36)
--- NOTE | 2018-09-23 09:41 | EKG ---
Test Reason : Blood Pressure : / mmHG Vent. Rate : 102 BPM Atrial Rate : 102 BPM P-R Int : 136 ms QRS Dur : 096 ms QT Int : 420 ms P-R-T Axes : 068 -39 034 degrees QTc Int : 547 ms POOR DATA QUALITY, INTERPRETATION MAY BE ADVERSELY AFFECTED SINUS TACHYCARDIA LEFT AXIS DEVIATION MINIMAL VOLTAGE CRITERIA FOR LVH, MAY BE NORMAL VARIANT ABNORMAL ECG WHEN COMPARED WITH ECG OF 25-JUL-2018 13:25, QT HAS LENGTHENED Confirmed by LUPE CARUSO, PETER ([id number]) on 09/23/2018 9:41:16 AM Referred By: Confirmed By:PETER ANDRADE MD
[2018-09-23] MEDS: HALOPERIDOL LACTATE 5 MG/ML IM ONE ×2 (09:49→09:54)
[2018-09-23] MEDS ORDERED: HALOPERIDOL LACTATE 2 MG/ML UNIT-DOSE CUPS PO ONE (10:50)
[2018-09-23] MEDS ORDERED: NICOTINE 14 MG/24 HOURS TOPICAL PATCH TD ONE (10:51)
[2018-09-23] MEDS ORDERED: amLODIPine BESYLATE 10 MG TABLET (FP) PO ONE (11:00)
[2018-09-23] MEDS ORDERED: GABAPENTIN 400 MG CAPSULE (FP) PO ONE (11:00)
[2018-09-23] MEDS ORDERED: RANITIDINE HCL 150 MG TABLET (FP) PO ONE (11:03)
[2018-09-23] MEDS ORDERED: amLODIPine BESYLATE 5 MG TABLET (FP) ONE (11:08)
[2018-09-23] MEDS ORDERED: RANITIDINE HCL 150 MG TABLET (FP) ONE (11:08)
[2018-09-23] MEDS ORDERED: SERTRALINE HCL 50 MG TABLET (FP) PO ONE (11:08)
[2018-09-23] MEDS ORDERED: GABAPENTIN 100 MG CAPSULE (FP) ONE (11:09)
[2018-09-23] MEDS ORDERED: traZODone HCL 50 MG TABLET (FP) PO ONE (11:18)
[2018-09-23] MEDS ORDERED: LORazepam 2 MG/ML SDV VIAL ONE ×2 (11:20→16:26)
[2018-09-23] MEDS ORDERED: LOSARTAN POTASSIUM 50 MG TABLET (FP) PO ONE (12:28)
[2018-09-23] MEDS ORDERED: ONDANSETRON 4 MG/2 ML VIAL IVPB PRN (12:42)
--- NOTE | 2018-09-23 15:26 | PN ---
Mental Health Exam - Mental Status Exam Alert and Oriented to: Time, Place, Person Cognitive Function: Good Patient Appearance: Well Groomed Mood: Elated Affect: Mood Congruent Patient Behavior: Impulsive, Talkative, Cooperative Speech Pattern: Clear, Tangential Voice Loudness: Mildly Loud Thought Process: Tangential, Goal Oriented Thought Disorder: Grandiose ('I WILL F...K FIRST PERSON THAT WILLING". ) Hallucinations: Denies Suicidal Ideation: Denies, No Plan Homicidal Ideation: Denies Insight/Judgement: Impaired Sleep: Poorly, Difficulty falling asleep Appetite: Good (COMPLETED MEAL. ) Muscle strength/Tone: Normal Gait/Station: Deferred
--- NOTE | 2018-09-23 15:37 | PN ---
Problem List - Problems (1) Bipolar affective disorder, current episode manic without psychotic symptoms Assessment/Plan: CLIENT IS IN YOLANDA EPISODE, MAYBE RELATED TO BENZO OVER USE. DRANK RUM UNTILL SHE FEEL OUT PRIOR TO CO-WORKER, FRIEND BRINGING HER TO ER. sHE HAS HISTORY OF ADMISSION TO [facility] WHERE SHE SIGNED HERSELF OUT IN PAST. SHE IS GRANDIOSE, FEELING "TO F.. K FIRST PERSON WILLING", HAVING QUARRELLS WITH HER FEMALE PARTNER. HAS 26 YO AND 20 YO IN [place]. 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 HAS BEEN UNABLE TO SLEEP FOR WEEKS. SHE CLAIMS HAT SHE GOT BEST SLEEP EVER AFTER RECIEVING IV HALDOL, WHEN SHE WAS RESTRAINED FROM TRYING TO WALK OUT FROM ER WITHOUT EVALUATIONS. CLIENT CLAIMS THAT SHE IS CHANGING HER PSYCH PROVIDER FROM RODO BRNAHAM MD TO [facility]CP IN [place] ON TEE. PLANNING TO HAVE PRE TESTING FOR ORTHO PEDIC , IN EARLY SEPTEMBER, ON WORKERS COMP CURRENTLY. SHE IS HOPEFUL CURRENTLY DENIES SI HI. ONE TO ONE CURRENTLY. PLAN TO ADMIT TO INPATIENT PSYCHIATRY ONCE MEDICALLY CLEAR FOR STABILIZATION OF MEDS BIPOLAR STATE. ALSO DETOX AND CONSIDER REHAB FROM BENZODIAZEOINE ABUSE WITH OVERDOSE ATTEMPTS. SPOKE WITH DR Brooks IN ER. Code(s): F31.10 - BIPOLAR DISORD, CRNT EPISODE MANIC W/O PSYCH FEATURES, UNSP
--- NOTE | 2018-09-23 15:52 | HP ---
Admitting History and Physical - Admission Chief Complaint: Suicidal Attempt History of Present Illness: Patient is a 43 y/o female with past medical history of sleep apnea, acid reflux , fibromyalgia. As per previous ER documentation patient brought to ER after taking 60 klonopin 1mg, 30 ambien 10mg, and 4 unasom 25mg. Poison control contacted in ER. On examination patient denies taking said amount of pills. She states that she took 5 shots of "Brugal" (saudi arabian rum). On examination denies SI/HI and wants to go home. Currently on 1:1 observation. History Source: Patient Limitations to Obtaining History: No Limitations - Past Medical History Cardiovascular: Yes: HTN Pulmonary: Yes: Sleep Apnea Gastrointestinal: Yes: GERD ...LMP: 04/18/17 Psych: Yes: Anxiety, Panic Rheumatology: Yes: Fibromyalgia - Past Surgical History Past Surgical History: Yes: Arthrosocopy (B/L knee), Bypass (vertical sleeve gastrectomy 2011, abdominoplasty and lipo x 2) - Smoking History Smoking history: Never smoked Have you smoked in the past 12 months: No Aproximately how many cigarettes per day: 20 If you are a former smoker, when did you quit?: 15 - Alcohol/Substance Use Hx Alcohol Use: No - Social History ADL: Independent <Lashawn Solorio - Last Filed: 09/23/18 18:34> - Primary Care Physician PCP: Dave Gary <Dave Gary - Last Filed: 09/24/18 07:58> Home Medications <Lashawn Solorio - Last Filed: 09/23/18 18:34> <Dave Gary - Last Filed: 09/24/18 07:58> - Allergies Allergies/Adverse Reactions: Allergies Allergy/AdvReac Type Severity Reaction Status Date / Time shellfish derived Allergy Intermediate Hives Verified 09/23/18 05:04 bupropion HCl Allergy Rash Verified 09/23/18 05:04 [From Wellbutrin] - Home Medications Home Medications: Ambulatory Orders Albuterol Sulfate [Proair Respiclick] 90 mcg IH PRN PRN 05/10/17 Zolpidem Tartrate [Ambien] 12.5 mg PO HS 06/04/17 Sertraline HCl [Zoloft -] 100 mg PO DAILY 06/11/17 cloNIDine HCL [Catapres -] 0.1 mg PO BID 06/11/17 Clonazepam [Klonopin] 1 mg PO BID 07/20/17 Gabapentin 500 mg PO DAILY 04/13/18 Leflunomide 20 mg PO DAILY 04/13/18 Amlodipine Besylate [Norvasc -] 10 mg PO DAILY 09/23/18 Review of Systems - Review of Systems Constitutional: reports: No Symptoms Eyes: reports: No Symptoms HENT: reports: No Symptoms Neck: reports: No Symptoms Cardiovascular: reports: No Symptoms Respiratory: reports: No Symptoms Gastrointestinal: reports: No Symptoms Genitourinary: reports: No Symptoms Breasts: reports: No Symptoms Reported Musculoskeletal: reports: No Symptoms Integumentary: reports: No Symptoms Neurological: reports: No Symptoms Endocrine: reports: No Symptoms Hematology/Lymphatic: reports: No Symptoms Psychiatric: reports: Anxiety <Lashawn Solorio - Last Filed: 09/23/18 18:34> Physical Examination Vital Signs: Vital Signs Temperature 97.9 F 09/23/18 05:04 Pulse Rate 103 H 09/23/18 11:24 Respiratory Rate 18 09/23/18 11:24 Blood Pressure 143/83 09/23/18 11:24 O2 Sat by Pulse Oximetry (%) 98 09/23/18 11:24 Constitutional: Yes: Well Nourished, No Distress, Calm Eyes: Yes: Conjunctiva Clear Neck: Yes: Supple Cardiovascular: Yes: Regular Rate and Rhythm Respiratory: Yes: Regular, CTA Bilaterally Gastrointestinal: Yes: Normal Bowel Sounds, Soft Musculoskeletal: Yes: WNL Extremities: Yes: WNL Edema: No Integumentary: Yes: Other (old, healed superficial scars to L inner forearm) Neurological: Yes: Alert, Oriented Psychiatric: Yes: Alert, Oriented Labs: CBC, BMP 09/23/18 06:00 09/23/18 06:00 <Lashwan Solorio - Last Filed: 09/23/18 18:34> Vital Signs: Vital Signs Temperature 98.0 F 09/24/18 05:45 Pulse Rate 76 09/24/18 05:45 Respiratory Rate 18 09/24/18 05:45 Blood Pressure 132/76 09/24/18 05:45 O2 Sat by Pulse Oximetry (%) 98 09/24/18 05:45 Labs: CBC, BMP 09/23/18 06:00 09/23/18 06:00 <Dave Gayr - Last Filed: 09/24/18 07:58> Imaging - Results EKG: Report Reviewed <Lashawn Solorio - Last Filed: 09/23/18 18:34> Problem List - Problems (1) Benzodiazepine (tranquilizer) overdose Code(s): T42.4X1A - POISONING BY BENZODIAZEPINES, ACCIDENTAL, INIT (2) Bipolar affective disorder, current episode manic without psychotic symptoms Code(s): F31.10 - BIPOLAR DISORD, CRNT EPISODE MANIC W/O PSYCH FEATURES, UNSP (3) Suicidal behavior with attempted self-injury Code(s): T14.91XA - SUICIDE ATTEMPT, INITIAL ENCOUNTER (4) Depression Code(s): F32.9 - MAJOR DEPRESSIVE DISORDER, SINGLE EPISODE, UNSPECIFIED Qualifiers: Depression Type: unspecified Qualified Code(s): F32.9 - Major depressive disorder, single episode, unspecified (5) GERD (gastroesophageal reflux disease) Code(s): K21.9 - GASTRO-ESOPHAGEAL REFLUX DISEASE WITHOUT ESOPHAGITIS (6) HTN (hypertension) Code(s): I10 - ESSENTIAL (PRIMARY) HYPERTENSION (7) Myalgia Code(s): M79.1 - MYALGIA * DO NOT USE * <Lashawn Solorio - Last Filed: 09/23/18 18:34> Assessment/Plan -Psych consult appreciated-to admit to psych once medically cleared for Bipolar d/o, Radha Arora currently working with for placement -will order Ativan 2mg IM q2h PRN for severe agitation -will start on zyprexa 2.5 PO per psych recommendation as per Dr. Davis -cont 1:1 observation -monitor for somnolence, slurred speech, hypotension, respiratory distress for klonopin/ambien ingestion -monitor for anticholinergic effects, QRS widening, ventricular dysrrhythmias for unasom ingestion -will monitor renal function -EKG repeat to monitr for QRS widening -cont clonidine and norvasc for BP mngmt -low sodium diet -dvt ppx <Lashawn Solorio - Last Filed: 09/23/18 18:34> PATIENT SEEN AND EXAMINED WITH GREASE RACK WORKER [place] AND MYSELF. I AGREE WITH THE ABOVE NOTE. <Dave Gary - Last Filed: 09/24/18 07:58>
[2018-09-23] MEDS ORDERED: clonazePAM 0.5 MG TABLET PO ONE ×2 (19:03→19:13)
[2018-09-23] MEDS ORDERED: clonazePAM 0.5 MG TABLET ONE (20:13)
[2018-09-23] MEDS ORDERED: OLANZapine 7.5 MG TABLET PO ONE (21:39)
--- NOTE | 2018-09-23 21:42 | PDOC ---
*Physical Exam - Vital Signs Last Vital Signs Temp Pulse Resp BP Pulse Ox 97.9 F 98 H 18 111/78 99 09/23/18 19:15 09/23/18 19:15 09/23/18 19:15 09/23/18 19:15 09/23/18 19:15 09/23/18 21:41 ED management endorsed to me by Dr. Anderson at the end of his shift. I have also spoken with Carlos Mclaughlin who recommends olanzapine 15 mg PO as 2.5 mg is a very small dose for her. Nicotine patch has already been ordered. At ARLEEN Mclaughlin' s request I am also aware she may need Ativan 2 mg IM prn for agitation and will place this order tonight if needed. Will continue to monitor. ED Treatment Course - LABORATORY CBC & Chemistry Diagram: 09/23/18 06:00 09/23/18 06:00 - ADDITIONAL ORDERS Additional order review: 09/23/18 09/23/18 06:28 06:00 RBC 4.07 MCV 96.6 H MCHC 32.3 RDW 14.6 D MPV 9.5 Neutrophils % 61.8 D Lymphocytes % 25.1 D Monocytes % 10.8 H Eosinophils % 1.0 D Basophils % 1.3 POC Glucometer 111.99300 - Medications Given in the ED: ED Medications Discontinued Medications Generic Name Dose Route Start Last Admin Trade Name Freq PRN Reason Stop Dose Admin Albuterol/Ipratropium 1 amp 09/23/18 05:45 09/23/18 07:00 Duoneb - NEB 09/23/18 05:46 Not Given ONCE ONE Amlodipine Besylate 10 mg 09/23/18 11:00 09/23/18 11:25 Norvasc - PO 09/23/18 11:01 10 mg ONCE ONE Administration Clonazepam 1 mg 09/23/18 19:13 09/23/18 20:14 Klonopin - PO 09/23/18 19:14 1 mg ONCE ONE Administration Gabapentin 400 mg 09/23/18 11:00 09/23/18 11:09 Neurontin - PO 09/23/18 11:01 400 mg ONCE ONE Administration Haloperidol 5 mg 09/23/18 09:36 09/23/18 09:54 Haldol Injection (Fast Acting) - IM 09/23/18 09:37 Not Given ONCE ONE Haloperidol 10 mg 09/23/18 10:50 09/23/18 11:26 Haldol Liquid - PO 09/23/18 10:51 Not Given ONCE ONE Lorazepam 2 mg 09/23/18 11:18 09/23/18 11:25 Ativan Injection - IM 09/23/18 11:19 2 mg ONCE ONE Administration Lorazepam 2 mg 09/23/18 16:25 09/23/18 16:34 Ativan Injection - IM 09/23/18 16:26 2 mg ONCE ONE Administration Losartan Potassium 100 mg 09/23/18 12:28 09/23/18 12:30 Cozaar - PO 09/23/18 12:29 100 mg ONCE ONE Administration Nicotine 14 mg 09/23/18 10:51 09/23/18 11:35 Nicoderm Patch - TD 09/23/18 10:52 14 mg ONCE ONE Administration Ranitidine HCl 150 mg 09/23/18 11:03 09/23/18 11:25 Zantac - PO 09/23/18 11:04 150 mg ONCE ONE Administration Sertraline HCl 100 mg 09/23/18 11:08 09/23/18 11:35 Zoloft - PO 09/23/18 11:09 100 mg ONCE ONE Administration Trazodone HCl 100 mg 09/23/18 11:18 09/23/18 11:35 Desyrel - PO 09/23/18 11:19 100 mg ONCE ONE Administration *DC/Admit/Observation/Transfer Diagnosis at time of Disposition: Suicidal behavior with attempted self-injury, Benzodiazepine (tranquilizer) overdose - Referrals - Patient Instructions - Post Discharge Activity
[2018-09-23] MEDS ORDERED: OLANZapine 2.5 MG TABLET PO SCH (22:00)
[2018-09-23] MEDS ORDERED: cloNIDine HCL 0.1 MG TABLET PO SCH (22:00)
[2018-09-23] MEDS ORDERED: OLANZapine 10 MG TABLET ONE (22:48)
[2018-09-23] MEDS ORDERED: cloNIDine HCL 0.1 MG TABLET ONE (22:48)
[2018-09-24] MEDS ORDERED: LORazepam 2 MG/ML SDV VIAL ONE (08:43)
[2018-09-24] MEDS ORDERED: NICOTINE 14 MG/24 HOURS TOPICAL PATCH TD ONE (08:55)
[2018-09-24] MEDS ORDERED: amLODIPine BESYLATE 10 MG TABLET (FP) PO SCH (10:00)
--- NOTE | 2018-09-24 10:28 | PN ---
Progress Note (short form) - Note Progress Note: Pt wants to sign out AMA, refuses inpatient rehab, states she goes to outpatient rehab and will follow at the rehab and with her psych Vinnie Garrett in [place]. Risks and benefits explained. Also spoke to ARLEEN Mclaughlin, pt is not suicidal or homicidal, therefore, there is no indication for 2 PC at this time.
[2018-09-24 10:36] VITALS: BP 136/82; PULSE 74; TEMP 98.3
[2018-09-24] MEDS ORDERED: LOSARTAN POTASSIUM 50 MG TABLET (FP) PO ONE (11:07)
== END 2018-09-24 10:25 | disposition left against medical advice (07) ==
LOC: JER 04:56 → JERBED 08:39 → INTOOBSV 08:39 → OBSVTOIN 08:39
PROVIDERS: ADMIT Family Medicine; ATTEND Family Medicine
PROC: 3E023GC Introduction of Other Therapeutic Substance into Muscle, Percutaneous Approach (ICD-10-PCS; principal; 2018-09-23)
DX: T42.4X2A Poisoning by benzodiazepines, intentional self-harm, initial encounter (principal); T14.91XA Suicide attempt, initial encounter; Y92.9 Unspecified place or not applicable; F31.10 Bipolar disorder, current episode manic without psychotic features, unspecified; K21.9 Gastro-esophageal reflux disease without esophagitis; I10 Essential (primary) hypertension; J45.909 Unspecified asthma, uncomplicated; Z91.013 Allergy to seafood; M79.7 Fibromyalgia
CPT/HCPCS: 36415; 80053; 80307; 81003; 81015; 82803; 82962; 85025; 85610; 93005; 93010; 99285-25; G0378; J0735

== ENCOUNTER 2018-10-07 17:00 | Inpatient (IN) | payer BC ==
[2018-10-28 17:46] VITALS: BMI 33.4
[2018-11-04] MEDS ORDERED: ONDANSETRON 4 MG/2 ML VIAL IVPUSH PRN ×3 (09:47→16:47)
[2018-11-04] MEDS ORDERED: LACTATED RINGERS SOLUTION 1,000 ML IV SCH (10:00)
[2018-11-04] MEDS ORDERED: BUPIVACAINE HCL/PF 0.5% (5MG/ML) 10 ML VIAL ONE (10:38)
[2018-11-04] MEDS ORDERED: MIDAZOLAM HCL 2 MG/2 ML SINGLE DOSE VIAL ONE ×3 (10:43→11:17)
[2018-11-04] MEDS ORDERED: BUPIVACAINE HCL/PF 0.25% (2.5MG/ML) 10 ML VIAL ONE (10:45)
[2018-11-04] MEDS ORDERED: DEXAMETHASONE SOD PHOSPHATE/PF 10 MG/ML SDV ONE (10:45)
[2018-11-04] MEDS ORDERED: fentaNYL CITRATE 250 MCG/5 ML VIAL ONE (11:16)
[2018-11-04] MEDS ORDERED: ceFAZolin SODIUM 1 GM VIAL ONE (11:17)
[2018-11-04] MEDS ORDERED: PROPOFOL 20 ML ONE (11:17)
[2018-11-04] MEDS ORDERED: ceFAZolin SODIUM 1 GM VIAL IVPB ONE (12:05)
[2018-11-04] MEDS ORDERED: ROCURONIUM BROMIDE 50 MG/5 ML VIAL ONE ×2 (13:27→15:44)
[2018-11-04] MEDS ORDERED: oxyCODONE HCL 5 MG TABLET PO PRN (13:37)
[2018-11-04] MEDS ORDERED: PROMETHAZINE HCL 25 MG/1 ML VIAL IVPB PRN (13:37)
[2018-11-04] MEDS ORDERED: BUPIVACAINE HCL/PF 0.5% (5MG/ML) 10 ML VIAL IJ ONE (14:48)
[2018-11-04] MEDS ORDERED: NEOSTIGMINE METHYLSULFATE 0.5 MG/ML - 10 ML MDV ONE (16:34)
[2018-11-04] MEDS ORDERED: GLYCOPYRROLATE 0.2 MG/1 ML VIAL ONE (16:34)
[2018-11-04] MEDS ORDERED: METOPROLOL TARTRATE 5 MG/5 ML VIAL ONE (16:41)
[2018-11-04] MEDS ORDERED: ALBUTEROL SO4 8 GM HFA INHALER IH PRN (16:50)
--- NOTE | 2018-11-04 17:02 | OP ---
Operative Note - Note: Operative Date: 11/04/18 Pre-Operative Diagnosis: Morbid Obesity. Asthma Operation: Laparoscopic Gastric Bypass. Diagnostic Laparoscopy Findings: 30 cc proximal gastric pouch created and anastomosed to 75 cm Alisson-en-Y limb Post-Operative Diagnosis: Same as Pre-op Surgeon: Jesús Peterson Box Car Loader: Roselia Wilburn Anesthesia: General Operative Report Dictated: Yes
--- NOTE | 2018-11-04 17:10 | SURG ---
Surgery Air Brake Worker Note Air Brake Worker: Roselia Wilburn PA-C Date of Service: 11/04/18 Diagnosis: Morbid Obesity. Asthma Procedure: Laparoscopic Gastric Bypass. Diagnostic Laparoscopy I was present for the entirety of the operative procedure. For further detail, please refer to operative report. Visit type - Case Type Case Type: Scheduled - Emergency Emergency Visit: No - New patient This patient is new to me today: Yes Date on this admission: 11/04/18
[2018-11-04 17:25] LABS: HEMATOCRIT 36.1 % (32.4-45.2); HEMOGLOBIN 12.3 GM/dL (10.7-15.3); MCH 32.5 pg (25.7-33.7); MCHC 33.9 g/dl (32.0-36.0); MEAN CELL VOLUME 95.8 fl (80-96); MEAN PLT VOLUME 8.7 fl (7.5-11.1); PLATELET COUNT 213 K/MM3 (134-434); RBC 3.77 M/mm3 (3.60-5.2); RDW 14.7 % (11.6-15.6); WHITE BLOOD COUNT 9.9 K/mm3 (4.0-10.0)
[2018-11-04 18:00] LABS: ALK PHOS 73 U/L (45-117); ANION GAP 7 MMOL/L (8-16); BILIRUBIN,TOTAL 0.2 mg/dL (0.2-1); BLOOD UREA NITROGEN 17 mg/dL (7-18); CALCIUM 8.4 mg/dL (8.5-10.1); CHLORIDE 106 mmol/L (98-107); CO2 22 mmol/L (21-32); CREATININE 1.4 mg/dL (0.55-1.3); GLUCOSE,RANDOM 197 mg/dL (74-106); POTASSIUM 4.5 mmol/L (3.5-5.1); SGOT/AST 199 U/L (15-37); SGPT/ALT 217 U/L (13-61); SODIUM 134 mmol/L (136-145); TOT PROT 6.6 g/dl (6.4-8.2)
[2018-11-04] MEDS ORDERED: methylPREDNISolone NA SUCC 40 MG/1 ML VIAL IVPUSH SCH (18:00)
[2018-11-04] MEDS: SODIUM CHLORIDE 1,000 ML IV SCH (18:15)
[2018-11-04] MEDS ORDERED: methylPREDNISolone NA SUCC 125 MG/2 ML VIAL IVPUSH SCH (19:03)
[2018-11-04] MEDS: MORPHINE SULFATE 2 MG/ML VIAL IVPUSH PRN (21:05)
[2018-11-04] MEDS: FAMOTIDINE 20 MG/50 ML IVPB 20 MG/50 ML MG IVPB SCH (21:40)
[2018-11-04] MEDS: ENOXAPARIN NA (PORCINE) 40 MG/0.4 ML DISP.SYRIN SQ SCH (21:41)
[2018-11-04] MEDS: cloNIDine HCL 0.1 MG TABLET PO SCH (22:13)
[2018-11-05] MEDS: SODIUM CHLORIDE 1,000 ML IV SCH (01:27)
[2018-11-05] MEDS: MORPHINE SULFATE 2 MG/ML VIAL IVPUSH PRN ×6 (03:05→22:12)
[2018-11-05 07:12] LABS: HEMATOCRIT 35.7 % (32.4-45.2); HEMOGLOBIN 11.9 GM/dL (10.7-15.3); MCH 32.3 pg (25.7-33.7); MCHC 33.5 g/dl (32.0-36.0); MEAN CELL VOLUME 96.4 fl (80-96); MEAN PLT VOLUME 9.5 fl (7.5-11.1); PLATELET COUNT 165 K/MM3 (134-434); RDW 14.8 % (11.6-15.6); WHITE BLOOD COUNT 9.1 K/mm3 (4.0-10.0)
--- NOTE | 2018-11-05 07:25 | OP ---
DATE OF OPERATION: 11/04/2018 PREOPERATIVE DIAGNOSES: 1. Morbid obesity. 2. Asthma. POSTOPERATIVE DIAGNOSES: 1. Morbid obesity. 2. Asthma. PROCEDURE PERFORMED: 1. Laparoscopic gastric bypass. 2. Diagnostic laparoscopy. OPERATING SURGEON: Jesús Peterson MD TRANSPORTATION AIDE: SIDNEY Villalba SECOND TRANSPORTATION AIDE: Val Hurtado at the later part of the procedure, approximately the last 30 minutes. EXPECTED BLOOD LOSS: 100 mL. ANESTHESIA: General. DESCRIPTION OF PROCEDURE: The patient was brought into the operating room, placed on the OR table in a supine position. All precautions were taken initially including padding for the back and the feet, and Venodyne boots were placed on both lower extremities. At that point, the abdomen was prepped and draped in the usual manner. A Veress needle was placed in the left upper quadrant, and a pneumoperitoneum was established. A No. 5 bladeless trocar with a Visiport was utilized to enter the abdomen under direct vision with a No. 5/0-degree scope. This entered cleanly with no signs of any adhesions in the area. A diagnostic look around the abdomen showed no signs of adhesions, so therefore, a No. 12 bladeless trocar and No. 5 were placed, No. 12 in the right lower quadrant and No. 5 in the right upper quadrant both in the anterior axillary line. A No. 5 bladeless trocar was then placed below the left costal margin. Finally, a No. 12 bladeless trocar was placed in the midline just below the umbilicus. At that point, the operating and the billing assistant surgeon together lifted up the mesocolon, and the ligament of Treitz was identified. Then 50 cm was measured distally, and at this junction, the operating surgeon held one end of the small intestine while the billing assistant surgeon held the other end. A 60 purple load staple was placed across the intestine and the mesentery and fired. This transected the small bowel and also dissected part of the mesentery to give further distance to the small bowel. At that point, 75 cm was measured distally on the distal limb and here the transected biliary limb was connected to the distal limb and held there in place with Endo Stitch. At this juncture, an opening was made in both ends of the limb with the LigaSure device. Into both ends of the limb, a 60 purple stapler was placed, and after it was carefully closed, it was fired. After it was removed, the staple line was checked. All the karina were intact. No bleeding was noted. This enterotomy was then closed with the Endo Stitch, which included a bite of mucosa and serosa from one end to the other, and it was tied at the distal end. In the middle, there were 2 areas that were questionable, so serosal suture was taken and tied over the initial suturing, and this further solidified the small bowel enterotomy. At this point, the operating and billing assistant surgeon both returned to the mesocolon and lifted it up. An opening was made just above the ligament of Treitz, and the lesser sac was entered showing the distal stomach wall. Through that area, the Alisson-en-Y limb was then placed and was placed as far as could be and then the Alisson limb was sutured to the surrounding mesocolon to prevent any internal hernia. At this point, attention was now directed to the stomach. A No. 12 trocar was then placed in both the right and lower upper quadrants for further utilization on the stomach. The stomach had previous surgery, and there was a lot of scar tissue and also adhesions to the greater curve of the stomach. As the billing assistant surgeon retracted the short gastric vessels laterally, the operating surgeon used a LigaSure to dissect the scar tissue, the adhesions, and the short gastric vessels off the greater curve of the stomach. Once this was done, attention was now directed to the lesser curve. Here at about a 30-cm proximal pouch, the stomach wall was lifted up by the billing assistant surgeon as the operating surgeon used a LigaSure to enter the area behind the stomach. There was a clean area as it was obvious that the pancreas was in its place and not up against the stomach wall. Once any surrounding fat was cleaned off the stomach wall, a purple load 60 staple was placed across the stomach 2 load and fired, and the stomach was transected. At this point, the small bowel was found and the Alisson limb was found and brought up to the area of the proximal pouch and laid there without any tension. A 2-layer handsewn anastomosis was then formed with the Endo Stitch with the 1st layer being continuous layer on the posterior serosa of both the stomach and small bowel. Once this was completed, LigaSure was used to make approximately a 1- to 1.2-cm opening on the stomach and the small bowel. The internal layer was then sewn with the Endo Stitch. It was used in a continuous fashion, grabbed the mucosa and serosa on the posterior wall of the small bowel and stomach and began the anterior wall. Once this was completed, the Endo Stitch was used also in a continuous fashion now to close the anterior wall, which included mucosa and serosa, and when it was completed, they were tied together, and a secure anastomosis was noted. An anterior serosal layer was then done in continuous fashion and tied to the posterior part of the layer. When this was completed, Anesthesia had inserted an orogastric tube just above the anastomosis. With saline placed around the anastomosis, Anesthesia inserted air into the orogastric tube, which showed the entire stomach and the small bowel distal to it distended. No signs of any obstruction were noted, therefore, and also no leaks were noted. At this point, all irrigation was suctioned. A No. 10 flat Jose-Villegas was placed from the right upper quadrant over the area of the anastomosis, and the liver retractor was then removed from the abdominal cavity, and liver fell over the anastomosis and kept the Jose-Villegas drain in place. Under direct vision, all trocars were removed, and pneumoperitoneum was released. All trocar sites received 0.25% Marcaine and were closed with 4-0 Biosyn in a subcuticular fashion. Dressings were applied. The patient was awoken from anesthesia and transferred out of the operating room to the recovery room in stable condition. Heron [id number]
[2018-11-05 07:28] LABS: ALBUMIN 3.3 g/dl (3.4-5.0); ALK PHOS 78 U/L (45-117); ANION GAP 8 MMOL/L (8-16); BILIRUBIN,TOTAL 0.4 mg/dL (0.2-1); BLOOD UREA NITROGEN 11 mg/dL (7-18); CALCIUM 8.5 mg/dL (8.5-10.1); CHLORIDE 103 mmol/L (98-107); CO2 25 mmol/L (21-32); CREATININE 0.8 mg/dL (0.55-1.3); GLUCOSE,RANDOM 104 mg/dL (74-106); POTASSIUM 3.8 mmol/L (3.5-5.1); SGOT/AST 667 U/L (15-37); SGPT/ALT 689 U/L (13-61); SODIUM 136 mmol/L (136-145)
--- NOTE | 2018-11-05 09:45 | PN ---
Progress Note (short form) - Note Progress Note: Anesthesia postop note, POD#1. S/P Gastric bypass under GA. Pat seen and examined. VSS. No apparent post anesthesia complications. Signed off.
--- NOTE | 2018-11-05 10:20 | PN ---
Progress Note (short form) - Note Progress Note: PULMONARY CONSULTATION DICTATED 11/05/18 IMP S/P LAPROSCOPIC GASTRIC BYPASS CHRONIC ASTHMA GERD HTN RLL NODULE PLAN INCENTIVE SPIROMETER INHALED BRONCHODILATORS ANALGESICS DVT PROPHYLAXIS F/U CHEST CT OUTPATIENT RLL TO DOCUMENT STABILITY DR STEPHENSON Problem List - Problems (1) Lung nodule < 6cm on CT Code(s): R91.1 - SOLITARY PULMONARY NODULE (2) Asthma Code(s): J45.909 - UNSPECIFIED ASTHMA, UNCOMPLICATED (3) GERD (gastroesophageal reflux disease) Code(s): K21.9 - GASTRO-ESOPHAGEAL REFLUX DISEASE WITHOUT ESOPHAGITIS (4) HTN (hypertension) Code(s): I10 - ESSENTIAL (PRIMARY) HYPERTENSION (5) S/P gastric bypass Code(s): Z98.84 - BARIATRIC SURGERY STATUS
[2018-11-05] MEDS ORDERED: ALBUTEROL SO4 0.083% IH SOL 2.5 MG/3 ML VIAL.NEB. NEB PRN (10:24)
[2018-11-05] MEDS: FAMOTIDINE 20 MG/50 ML IVPB 20 MG/50 ML MG IVPB SCH ×2 (10:30→22:12)
[2018-11-05] MEDS: ENOXAPARIN NA (PORCINE) 40 MG/0.4 ML DISP.SYRIN SQ SCH ×2 (10:35→22:12)
[2018-11-05] MEDS: BUDESONIDE/FORMETEROL FUMARATE 160/4.5 mcg INHALER IH SCH ×2 (10:40→22:33)
--- NOTE | 2018-11-05 10:42 | CONS ---
DATE OF CONSULTATION: 11/05/2018 REFERRING PHYSICIAN: Jesús Peterson MD HISTORY: The patient is a 43-year-old black female known to me with a past medical history of asthma, hypertension, rheumatoid arthritis, history of tobacco use quit couple of months ago admitted to [facility] status post laparoscopic gastric bypass. The patient has a history of asthma maintained on Symbicort and albuterol. There is no history of respiratory failure in the past requiring ventilatory support. She denies any complaints of shortness of breath at this time. Denies any fevers or chills. Denies hemoptysis. There is no history of recent travel. There is no history of DVT or PE in the past. The patient underwent a laparoscopic gastric bypass on November 04. The patient tolerated procedure well without complications. PAST MEDICAL HISTORY: Again, includes asthma, GERD, hypertension. REVIEW OF SYSTEMS: No chest pain, no palpitations, no shortness of breath at this time, no hemoptysis. Positive mild abdominal discomfort. CURRENT MEDICATIONS: Include Zofran, Cozaar, Lovenox, Klonopin, albuterol, Catapres, Norvasc, normal saline, Sublimaze, and hydrochlorothiazide. PHYSICAL EXAMINATION: General: The patient is a well-developed, well-nourished female awake and alert in no acute distress. Vital Signs: She is afebrile. Blood pressure is 153/91, respiratory rate 20, O2 saturation 99% on 3 L. HEENT: Normocephalic and atraumatic. Neck: Supple. Heart: Regular S1, S2. Chest: Clear. Abdomen: Soft. Extremities: No cyanosis or edema. LABORATORIES: WBC 9.1, hemoglobin 11.9, hematocrit 35.7 with a platelet count of 165,000. Chemistries: BUN 11, creatinine 0.8, ALT 689, AST 667. Chest x-ray preoperative July 25, 2018: No infiltrates, no effusions. Previous CAT scan of the chest on December 28, 2017 revealed a stable right lower lobe nodule 9.6 x 6 mm. IMPRESSION: 1. Status post laparoscopic gastric bypass. 2. Chronic asthma, currently clinically stable. 3. Hypertension. 4. Gastroesophageal reflux disease. 5. Right lower lobe nodule, stable. PLAN: Incentive spirometer. Analgesics as per Surgery. Continue inhaled bronchodilators. The patient does not require IV steroids at this time. Also follow up chest CT as an outpatient to document stability of pulmonary nodule. DVT prophylaxis. MARGI STEPHENSON M.D. [id number] MTDD
[2018-11-05] MEDS: amLODIPine BESYLATE 10 MG TABLET (FP) PO SCH (12:15)
[2018-11-05] MEDS: HYDROCHLOROTHIAZIDE 25 MG TABLET (FP) PO SCH (12:20)
[2018-11-05] MEDS: cloNIDine HCL 0.1 MG TABLET PO SCH ×2 (12:21→22:11)
[2018-11-05] MEDS: LOSARTAN POTASSIUM 50 MG TABLET (FP) PO SCH (12:25)
[2018-11-05] MEDS ORDERED: SODIUM CHLORIDE 1,000 ML IV SCH (13:45)
--- NOTE | 2018-11-05 13:47 | PROC ---
Procedure Note Procedure: POD#1 Afebrile; VSS P-88-94 BP-153/91 Pt doing well occasional nausea C/O generalized abdominal pain/discomfort UGI- no leak, no obstruction WBC-9.1 H/H-11.9/35.7 AST-667 ALT-689 u.o-1300 cc in 12 hours LUZMARIA drain-45 cc in 12 hours P- Begin PO sips of water- 1oz PO /hr Encourage OOB-ambulate Cont DVT prophylaxis Check labs in AM
[2018-11-06] MEDS: MORPHINE SULFATE 2 MG/ML VIAL IVPUSH PRN ×6 (01:46→21:50)
[2018-11-06] MEDS: FAMOTIDINE 20 MG/50 ML IVPB 20 MG/50 ML MG IVPB SCH ×2 (07:15→11:03)
[2018-11-06 07:40] LABS: HEMATOCRIT 39.6 % (32.4-45.2); HEMOGLOBIN 13.7 GM/dL (10.7-15.3); MCH 32.9 pg (25.7-33.7); MCHC 34.6 g/dl (32.0-36.0); MEAN CELL VOLUME 95.2 fl (80-96); PLATELET COUNT 131 K/MM3 (134-434); RBC 4.17 M/mm3 (3.60-5.2); RDW 14.2 % (11.6-15.6)
[2018-11-06 08:47] LABS: ALBUMIN 3.4 g/dl (3.4-5.0); ALK PHOS 89 U/L (45-117); ANION GAP 9 MMOL/L (8-16); BILIRUBIN,TOTAL 0.6 mg/dL (0.2-1); BLOOD UREA NITROGEN 8 mg/dL (7-18); CALCIUM 9.2 mg/dL (8.5-10.1); CHLORIDE 98 mmol/L (98-107); CO2 27 mmol/L (21-32); CREATININE 0.8 mg/dL (0.55-1.3); GLUCOSE,RANDOM 78 mg/dL (74-106); POTASSIUM 3.4 mmol/L (3.5-5.1); SGOT/AST 528 U/L (15-37); SGPT/ALT 883 U/L (13-61); SODIUM 134 mmol/L (136-145); TOT PROT 7.5 g/dl (6.4-8.2)
--- NOTE | 2018-11-06 10:27 | PN ---
Progress Note, Physician History of Present Illness: PULMONARY ALERT,NO DISTRESS,-SOB, LESS ABD DISCOMFORT - Current Medication List Current Medications: Active Medications Albuterol Sulfate (Ventolin Hfa Inhaler -) 2 puff IH Q4H PRN PRN Reason: SHORT OF BREATH/WHEEZING Albuterol Sulfate (Ventolin 0.083% Nebulizer Soln -) 1 amp NEB Q4H PRN PRN Reason: SHORT OF BREATH/WHEEZING Amlodipine Besylate (Norvasc -) 10 mg PO DAILY [facility] Last Admin: 11/05/18 12:15 Dose: 10 mg Budesonide/Formoterol Fumarate (Symbicort 160/4.5mcg -) 2 puff IH BID [facility] Last Admin: 11/05/18 22:33 Dose: 2 puff Clonazepam (Klonopin -) 1 mg PO Q12H PRN PRN Reason: ANXIETY Clonidine (Catapres -) 0.1 mg PO BID [facility] Last Admin: 11/05/18 22:11 Dose: 0.1 mg Enoxaparin Sodium (Lovenox -) 40 mg SQ BID [facility] Last Admin: 11/05/18 22:12 Dose: 40 mg Fentanyl (Sublimaze Injection -) 50 mcg IVPUSH [id number] PRN PRN Reason: PAIN-PACU ORDER X 4 DOSES ONLY Last Admin: 11/04/18 17:30 Dose: 50 mcg Hydrochlorothiazide (Hctz -) 25 mg PO DAILY [facility] Last Admin: 11/05/18 12:20 Dose: 25 mg Famotidine/Sodium Chloride (Pepcid 20 Mg Premixed Ivpb -) 20 mg in 50 mls @ 100 mls/hr IVPB BID [facility] Last Admin: 11/06/18 07:15 Dose: 100 mls/hr Sodium Chloride (Normal Saline -) 1,000 mls @ 50 mls/hr IV ASDIR [facility] Stop: 11/06/18 13:38 Last Admin: 11/05/18 15:03 Dose: 50 mls/hr Losartan Potassium (Cozaar -) 100 mg PO DAILY [facility] Last Admin: 11/05/18 12:25 Dose: 100 mg Morphine Sulfate (Morphine Sulfate) 1 mg IVPUSH Q3H PRN PRN Reason: PAIN LEVEL 1-5 Last Admin: 11/06/18 06:25 Dose: 1 mg Ondansetron HCl (Zofran Injection) 4 mg IVPUSH Q6H PRN PRN Reason: NAUSEA AND/OR VOMITING Ondansetron HCl (Zofran Injection) 4 mg IVPUSH Q6H PRN PRN Reason: NAUSEA AND/OR VOMITING Ondansetron HCl (Zofran Injection) 4 mg IVPUSH Q4H PRN PRN Reason: NAUSEA AND/OR VOMITING Promethazine HCl (Phenergan Injection -) 12.5 mg IVPB Q6H PRN PRN Reason: NAUSEA-FOR RESCUE AFTER 15 MIN - Objective Vital Signs: Vital Signs Temperature 98.5 F 11/06/18 06:00 Pulse Rate 90 11/06/18 06:00 Respiratory Rate 20 11/06/18 06:00 Blood Pressure 135/90 11/06/18 06:00 O2 Sat by Pulse Oximetry (%) 96 11/05/18 21:00 Constitutional: Yes: Well Nourished, Calm Eyes: Yes: WNL HENT: Yes: WNL Neck: Yes: WNL Cardiovascular: Yes: Regular Rate and Rhythm, S1, S2 Respiratory: Yes: CTA Bilaterally Gastrointestinal: Yes: Normal Bowel Sounds, Soft Extremities: Yes: WNL Edema: No Labs: CBC, BMP 11/06/18 06:00 11/06/18 06:00 Problem List - Problems (1) Lung nodule < 6cm on CT Code(s): R91.1 - SOLITARY PULMONARY NODULE (2) Asthma Code(s): J45.909 - UNSPECIFIED ASTHMA, UNCOMPLICATED (3) GERD (gastroesophageal reflux disease) Code(s): K21.9 - GASTRO-ESOPHAGEAL REFLUX DISEASE WITHOUT ESOPHAGITIS (4) HTN (hypertension) Code(s): I10 - ESSENTIAL (PRIMARY) HYPERTENSION (5) S/P gastric bypass Code(s): Z98.84 - BARIATRIC SURGERY STATUS Assessment/Plan IMP S/P LAPROSCOPIC GASTRIC BYPASS CHRONIC ASTHMA STABLE GERD HTN RLL NODULE PLAN INCENTIVE SPIROMETER INHALED BRONCHODILATORS ANALGESICS DVT PROPHYLAXIS F/U CHEST CT OUTPATIENT RLL TO DOCUMENT STABILITY DR STEPHENSON Problem List - Problems (1) Lung nodule < 6cm on CT Code(s): R91.1 - SOLITARY PULMONARY NODULE (2) Asthma Code(s): J45.909 - UNSPECIFIED ASTHMA, UNCOMPLICATED (3) GERD (gastroesophageal reflux disease) Code(s): K21.9 - GASTRO-ESOPHAGEAL REFLUX DISEASE WITHOUT ESOPHAGITIS (4) HTN (hypertension) Code(s): I10 - ESSENTIAL (PRIMARY) HYPERTENSION (5) S/P gastric bypass Code(s): Z98.84 - BARIATRIC SURGERY STATUS
[2018-11-06] MEDS: ENOXAPARIN NA (PORCINE) 40 MG/0.4 ML DISP.SYRIN SQ SCH ×2 (11:02→21:51)
[2018-11-06] MEDS: LOSARTAN POTASSIUM 50 MG TABLET (FP) PO SCH (11:03)
[2018-11-06] MEDS: BUDESONIDE/FORMETEROL FUMARATE 160/4.5 mcg INHALER IH SCH ×2 (11:03→21:56)
[2018-11-06] MEDS: cloNIDine HCL 0.1 MG TABLET PO SCH ×2 (11:03→21:51)
[2018-11-06] MEDS: HYDROCHLOROTHIAZIDE 25 MG TABLET (FP) PO SCH (11:03)
[2018-11-06] MEDS: amLODIPine BESYLATE 10 MG TABLET (FP) PO SCH (11:03)
[2018-11-06] MEDS: MAG HYDROX/AL HYDROX/SIMETH 30 ML UNIT-DOSE CUP PO PRN (14:55)
[2018-11-06] MEDS ORDERED: POTASSIUM CHLORIDE TABS 20 MEQ TABLET.ER (FP) PO ONE (19:23)
--- NOTE | 2018-11-06 19:47 | PN ---
Progress Note (short form) - Note Progress Note: POD#2 Afebrile; VSS P-94-104 BP-128/74 Pt doing well Tolerating PO water Q1-2H No N/V Abd- incisions healing well no erythema Ext- no swelling or edema WBC-7.0 H/H-13.7/39.6 AST-528 (decreased) ALT-883 (increased) BUN/CR-8/0.8 P- Begin PO clear liquids- 2 oz PO TID Encourage ambulation Continue DVT prophylaxis PO Potassium replacement Repeat labs in AM
[2018-11-06] MEDS: PANTOPRAZOLE 20 MG TABLET (FP) PO SCH (21:51)
[2018-11-06 21:53] LABS: URINE APPEARANCE CLEAR; URINE BILIRUBIN NEGATIVE (<2.0 mg/dL); URINE COLOR YELLOW; URINE GLUCOSE (UA) NEGATIVE (NEGATIVE); URINE KETONE 1+ (NEGATIVE); URINE LEUK ESTERASE NEGATIVE (NEGATIVE); URINE NITRITE NEGATIVE (NEGATIVE); URINE PROTEIN 1+ (NEGATIVE); URINE UROBILINOGEN NEGATIVE mg/dL (0.2-1.0)
[2018-11-06 21:56] LABS: EPI CELLS RARE /HPF (FEW); URINE HYALINE CAST 3 /lpf; URINE MUCUS RARE
[2018-11-07] MEDS: MAG HYDROX/AL HYDROX/SIMETH 30 ML UNIT-DOSE CUP PO PRN ×4 (00:46→23:51)
[2018-11-07] MEDS: MORPHINE SULFATE 2 MG/ML VIAL IVPUSH PRN ×7 (00:47→23:03)
[2018-11-07 06:16] LABS: HEMATOCRIT 42.1 % (32.4-45.2); HEMOGLOBIN 14.3 GM/dL (10.7-15.3); MCH 32.1 pg (25.7-33.7); MCHC 33.9 g/dl (32.0-36.0); MEAN CELL VOLUME 94.7 fl (80-96); MEAN PLT VOLUME 9.9 fl (7.5-11.1); PLATELET COUNT 167 K/MM3 (134-434); RBC 4.45 M/mm3 (3.60-5.2); RDW 14.3 % (11.6-15.6); WHITE BLOOD COUNT 7.2 K/mm3 (4.0-10.0)
[2018-11-07 06:48] LABS: ALBUMIN 3.3 g/dl (3.4-5.0); ALK PHOS 100 U/L (45-117); ANION GAP 9 MMOL/L (8-16); BILIRUBIN,TOTAL 0.5 mg/dL (0.2-1); BLOOD UREA NITROGEN 15 mg/dL (7-18); CALCIUM 8.6 mg/dL (8.5-10.1); CHLORIDE 94 mmol/L (98-107); CO2 27 mmol/L (21-32); CREATININE 0.9 mg/dL (0.55-1.3); GLUCOSE,RANDOM 96 mg/dL (74-106); POTASSIUM 3.5 mmol/L (3.5-5.1); SGOT/AST 214 U/L (15-37); SGPT/ALT 662 U/L (13-61); SODIUM 130 mmol/L (136-145); TOT PROT 7.6 g/dl (6.4-8.2)
[2018-11-07] MEDS: clonazePAM 0.5 MG TABLET PO PRN ×2 (09:11→21:48)
[2018-11-07] MEDS: amLODIPine BESYLATE 10 MG TABLET (FP) PO SCH (10:10)
[2018-11-07] MEDS: HYDROCHLOROTHIAZIDE 25 MG TABLET (FP) PO SCH (10:10)
[2018-11-07] MEDS: PANTOPRAZOLE 20 MG TABLET (FP) PO SCH ×2 (10:10→21:48)
[2018-11-07] MEDS: cloNIDine HCL 0.1 MG TABLET PO SCH ×2 (10:10→21:48)
[2018-11-07] MEDS: LOSARTAN POTASSIUM 50 MG TABLET (FP) PO SCH (10:10)
[2018-11-07] MEDS: ENOXAPARIN NA (PORCINE) 40 MG/0.4 ML DISP.SYRIN SQ SCH ×2 (10:11→21:48)
[2018-11-07] MEDS: BUDESONIDE/FORMETEROL FUMARATE 160/4.5 mcg INHALER IH SCH ×2 (10:12→21:53)
--- NOTE | 2018-11-07 10:37 | PN ---
Progress Note, Physician History of Present Illness: PULMONARY ALERT,COMFORTABLE,-RESP DISTRESS. PT TOLERATING PO - Current Medication List Current Medications: Active Medications Al Hydroxide/Mg Hydroxide (Mylanta Oral Suspension -) 30 ml PO Q6H PRN PRN Reason: INDIGESTION Last Admin: 11/07/18 00:46 Dose: 30 ml Albuterol Sulfate (Ventolin Hfa Inhaler -) 2 puff IH Q4H PRN PRN Reason: SHORT OF BREATH/WHEEZING Albuterol Sulfate (Ventolin 0.083% Nebulizer Soln -) 1 amp NEB Q4H PRN PRN Reason: SHORT OF BREATH/WHEEZING Amlodipine Besylate (Norvasc -) 10 mg PO DAILY [facility] Last Admin: 11/07/18 10:10 Dose: 10 mg Budesonide/Formoterol Fumarate (Symbicort 160/4.5mcg -) 2 puff IH BID [facility] Last Admin: 11/07/18 10:12 Dose: 2 puff Clonazepam (Klonopin -) 1 mg PO Q12H PRN PRN Reason: ANXIETY Last Admin: 11/07/18 09:11 Dose: 1 mg Clonidine (Catapres -) 0.1 mg PO BID [facility] Last Admin: 11/07/18 10:10 Dose: 0.1 mg Enoxaparin Sodium (Lovenox -) 40 mg SQ BID [facility] Last Admin: 11/07/18 10:11 Dose: 40 mg Fentanyl (Sublimaze Injection -) 50 mcg IVPUSH [id number] PRN PRN Reason: PAIN-PACU ORDER X 4 DOSES ONLY Last Admin: 11/04/18 17:30 Dose: 50 mcg Hydrochlorothiazide (Hctz -) 25 mg PO DAILY [facility] Last Admin: 11/07/18 10:10 Dose: 25 mg Losartan Potassium (Cozaar -) 100 mg PO DAILY [facility] Last Admin: 11/07/18 10:10 Dose: 100 mg Morphine Sulfate (Morphine Sulfate) 1 mg IVPUSH Q3H PRN PRN Reason: PAIN LEVEL 1-5 Last Admin: 11/07/18 10:11 Dose: 1 mg Ondansetron HCl (Zofran Injection) 4 mg IVPUSH Q6H PRN PRN Reason: NAUSEA AND/OR VOMITING Ondansetron HCl (Zofran Injection) 4 mg IVPUSH Q6H PRN PRN Reason: NAUSEA AND/OR VOMITING Ondansetron HCl (Zofran Injection) 4 mg IVPUSH Q4H PRN PRN Reason: NAUSEA AND/OR VOMITING Pantoprazole Sodium (Protonix -) 20 mg PO BID [facility] Last Admin: 11/07/18 10:10 Dose: 20 mg Promethazine HCl (Phenergan Injection -) 12.5 mg IVPB Q6H PRN PRN Reason: NAUSEA-FOR RESCUE AFTER 15 MIN - Objective Vital Signs: Vital Signs Temperature 98.4 F 11/07/18 08:04 Pulse Rate 104 H 11/07/18 08:04 Respiratory Rate 20 11/07/18 08:06 Blood Pressure 124/68 11/07/18 08:04 O2 Sat by Pulse Oximetry (%) 98 11/07/18 08:06 Constitutional: Yes: Well Nourished, Calm Eyes: Yes: WNL HENT: Yes: WNL Neck: Yes: WNL Cardiovascular: Yes: Regular Rate and Rhythm, S1, S2 Respiratory: Yes: CTA Bilaterally Gastrointestinal: Yes: Normal Bowel Sounds, Soft Extremities: Yes: WNL Edema: No Labs: CBC, BMP 11/07/18 05:30 11/07/18 05:30 Problem List - Problems (1) Lung nodule < 6cm on CT Code(s): R91.1 - SOLITARY PULMONARY NODULE (2) Asthma Code(s): J45.909 - UNSPECIFIED ASTHMA, UNCOMPLICATED (3) GERD (gastroesophageal reflux disease) Code(s): K21.9 - GASTRO-ESOPHAGEAL REFLUX DISEASE WITHOUT ESOPHAGITIS (4) HTN (hypertension) Code(s): I10 - ESSENTIAL (PRIMARY) HYPERTENSION (5) S/P gastric bypass Code(s): Z98.84 - BARIATRIC SURGERY STATUS Assessment/Plan IMP S/P LAPROSCOPIC GASTRIC BYPASS CHRONIC ASTHMA STABLE GERD HTN RLL NODULE PLAN CONTINUE INCENTIVE SPIROMETER INHALED BRONCHODILATORS ANALGESICS DVT PROPHYLAXIS F/U CHEST CT OUTPATIENT RLL TO DOCUMENT STABILITY DR STEPHENSON Problem List - Problems (1) Lung nodule < 6cm on CT Code(s): R91.1 - SOLITARY PULMONARY NODULE (2) Asthma Code(s): J45.909 - UNSPECIFIED ASTHMA, UNCOMPLICATED (3) GERD (gastroesophageal reflux disease) Code(s): K21.9 - GASTRO-ESOPHAGEAL REFLUX DISEASE WITHOUT ESOPHAGITIS (4) HTN (hypertension) Code(s): I10 - ESSENTIAL (PRIMARY) HYPERTENSION (5) S/P gastric bypass Code(s): Z98.84 - BARIATRIC SURGERY STATUS
--- NOTE | 2018-11-07 15:22 | PN ---
Progress Note (short form) - Note Progress Note: POD#3 Pulmonary F/U appreciated Afebrile;VSS P-94-104 BP-124/68 Pt doing well Tolerating PO clear liquids- 2 oz po tid WBC-7.2 H/H-14.3/42.1 K-3.5 AST-214(decreased) ALT-662(decreased) BUN/CR-15/0.9 P- Increase ambulation Cont DVT prophylaxis Replace K
[2018-11-07] MEDS: POTASSIUM CHLORIDE TABS 20 MEQ TABLET.ER (FP) PO SCH ×2 (16:04→21:48)
[2018-11-08] MEDS: MORPHINE SULFATE 2 MG/ML VIAL IVPUSH PRN ×5 (02:58→20:12)
[2018-11-08] MEDS: PANTOPRAZOLE 20 MG TABLET (FP) PO SCH ×2 (09:32→21:51)
[2018-11-08] MEDS: LOSARTAN POTASSIUM 50 MG TABLET (FP) PO SCH (09:32)
[2018-11-08] MEDS: ENOXAPARIN NA (PORCINE) 40 MG/0.4 ML DISP.SYRIN SQ SCH ×2 (09:32→21:51)
[2018-11-08] MEDS: POTASSIUM CHLORIDE TABS 20 MEQ TABLET.ER (FP) PO SCH ×2 (09:32→21:51)
[2018-11-08] MEDS: amLODIPine BESYLATE 10 MG TABLET (FP) PO SCH (09:33)
[2018-11-08] MEDS: cloNIDine HCL 0.1 MG TABLET PO SCH ×2 (09:33→21:00)
[2018-11-08] MEDS: HYDROCHLOROTHIAZIDE 25 MG TABLET (FP) PO SCH (09:33)
[2018-11-08] MEDS: BUDESONIDE/FORMETEROL FUMARATE 160/4.5 mcg INHALER IH SCH ×2 (09:34→21:57)
[2018-11-08] MEDS: clonazePAM 0.5 MG TABLET PO PRN (09:42)
[2018-11-08] MEDS: MAG HYDROX/AL HYDROX/SIMETH 30 ML UNIT-DOSE CUP PO PRN ×2 (12:10→21:55)
--- NOTE | 2018-11-08 12:23 | PN ---
Progress Note, Physician History of Present Illness: PULMONARY ALERT,NO DISTRESS,-SOB,TOLERATING PO - Current Medication List Current Medications: Active Medications Al Hydroxide/Mg Hydroxide (Mylanta Oral Suspension -) 30 ml PO Q6H PRN PRN Reason: INDIGESTION Last Admin: 11/08/18 12:10 Dose: 30 ml Albuterol Sulfate (Ventolin Hfa Inhaler -) 2 puff IH Q4H PRN PRN Reason: SHORT OF BREATH/WHEEZING Albuterol Sulfate (Ventolin 0.083% Nebulizer Soln -) 1 amp NEB Q4H PRN PRN Reason: SHORT OF BREATH/WHEEZING Amlodipine Besylate (Norvasc -) 10 mg PO DAILY [facility] Last Admin: 11/08/18 09:33 Dose: Not Given Budesonide/Formoterol Fumarate (Symbicort 160/4.5mcg -) 2 puff IH BID [facility] Last Admin: 11/08/18 09:34 Dose: 2 puff Clonazepam (Klonopin -) 1 mg PO Q12H PRN PRN Reason: ANXIETY Last Admin: 11/08/18 09:42 Dose: 1 mg Clonidine (Catapres -) 0.1 mg PO BID [facility] Last Admin: 11/08/18 09:33 Dose: Not Given Enoxaparin Sodium (Lovenox -) 40 mg SQ BID [facility] Last Admin: 11/08/18 09:32 Dose: 40 mg Fentanyl (Sublimaze Injection -) 50 mcg IVPUSH [id number] PRN PRN Reason: PAIN-PACU ORDER X 4 DOSES ONLY Last Admin: 11/04/18 17:30 Dose: 50 mcg Hydrochlorothiazide (Hctz -) 25 mg PO DAILY [facility] Last Admin: 11/08/18 09:33 Dose: Not Given Losartan Potassium (Cozaar -) 100 mg PO DAILY [facility] Last Admin: 11/08/18 09:32 Dose: 100 mg Morphine Sulfate (Morphine Sulfate) 1 mg IVPUSH Q3H PRN PRN Reason: PAIN LEVEL 1-5 Last Admin: 11/08/18 09:49 Dose: 1 mg Ondansetron HCl (Zofran Injection) 4 mg IVPUSH Q6H PRN PRN Reason: NAUSEA AND/OR VOMITING Ondansetron HCl (Zofran Injection) 4 mg IVPUSH Q6H PRN PRN Reason: NAUSEA AND/OR VOMITING Ondansetron HCl (Zofran Injection) 4 mg IVPUSH Q4H PRN PRN Reason: NAUSEA AND/OR VOMITING Pantoprazole Sodium (Protonix -) 20 mg PO BID [facility] Last Admin: 11/08/18 09:32 Dose: 20 mg Potassium Chloride (K-Dur -) 20 meq PO BID [facility] Last Admin: 11/08/18 09:32 Dose: 20 meq Promethazine HCl (Phenergan Injection -) 12.5 mg IVPB Q6H PRN PRN Reason: NAUSEA-FOR RESCUE AFTER 15 MIN - Objective Vital Signs: Vital Signs Temperature 98.3 F 11/08/18 09:06 Pulse Rate 115 H 11/08/18 09:06 Respiratory Rate 20 11/08/18 09:06 Blood Pressure 97/76 11/08/18 09:06 O2 Sat by Pulse Oximetry (%) 98 11/08/18 09:00 Constitutional: Yes: Well Nourished, Calm Eyes: Yes: WNL HENT: Yes: WNL Neck: Yes: WNL Cardiovascular: Yes: Regular Rate and Rhythm, S1, S2 Respiratory: Yes: CTA Bilaterally Gastrointestinal: Yes: Normal Bowel Sounds, Soft Extremities: Yes: WNL Edema: No Labs: CBC, BMP Problem List - Problems (1) Lung nodule < 6cm on CT Code(s): R91.1 - SOLITARY PULMONARY NODULE (2) Asthma Code(s): J45.909 - UNSPECIFIED ASTHMA, UNCOMPLICATED (3) GERD (gastroesophageal reflux disease) Code(s): K21.9 - GASTRO-ESOPHAGEAL REFLUX DISEASE WITHOUT ESOPHAGITIS (4) HTN (hypertension) Code(s): I10 - ESSENTIAL (PRIMARY) HYPERTENSION (5) S/P gastric bypass Code(s): Z98.84 - BARIATRIC SURGERY STATUS Assessment/Plan IMP S/P LAPROSCOPIC GASTRIC BYPASS CHRONIC ASTHMA STABLE GERD HTN RLL NODULE PLAN INCENTIVE SPIROMETER INHALED BRONCHODILATORS ANALGESICS NEEDED DVT PROPHYLAXIS F/U CHEST CT OUTPATIENT RLL TO DOCUMENT STABILITY DR STEPHENSON Problem List - Problems (1) Lung nodule < 6cm on CT Code(s): R91.1 - SOLITARY PULMONARY NODULE (2) Asthma Code(s): J45.909 - UNSPECIFIED ASTHMA, UNCOMPLICATED (3) GERD (gastroesophageal reflux disease) Code(s): K21.9 - GASTRO-ESOPHAGEAL REFLUX DISEASE WITHOUT ESOPHAGITIS (4) HTN (hypertension) Code(s): I10 - ESSENTIAL (PRIMARY) HYPERTENSION (5) S/P gastric bypass Code(s): Z98.84 - BARIATRIC SURGERY STATUS
[2018-11-08] MEDS ORDERED: SODIUM CHLORIDE 500 ML IV SCH (14:15)
--- NOTE | 2018-11-08 15:08 | PN ---
Progress Note (short form) - Note Progress Note: POD#4 Afebrile P-94-114 (presently 104) BP- 98/77 (BP meds held, still decreasing) Pt tolerating PO liquids- clears 2 oz TID also water-4 oz per 2 hrs (pt states poor water input) P/E- tongue- appears dry in center Abd-bandages in place Ext- no swelling or edema BUN/CR- pending LFT-pending receiving 500 cc IV fluid challenge P- Cardiology consult IV fluids as needed Increase PO to clear liquids- 3 oz po tid Increase PO fluid intake Check afternoon labs Cont DVT prophylaxis
[2018-11-08 15:20] LABS: ALBUMIN 3.5 g/dl (3.4-5.0); ALK PHOS 102 U/L (45-117); ANION GAP 7 MMOL/L (8-16); BILIRUBIN,TOTAL 0.5 mg/dL (0.2-1); BLOOD UREA NITROGEN 25 mg/dL (7-18); CALCIUM 8.9 mg/dL (8.5-10.1); CHLORIDE 96 mmol/L (98-107); CO2 28 mmol/L (21-32); CREATININE 1.4 mg/dL (0.55-1.3); GLUCOSE,RANDOM 103 mg/dL (74-106); POTASSIUM 4.1 mmol/L (3.5-5.1); SGOT/AST 57 U/L (15-37); SGPT/ALT 366 U/L (13-61); SODIUM 131 mmol/L (136-145); TOT PROT 8.3 g/dl (6.4-8.2)
--- NOTE | 2018-11-08 16:23 | CON.CARD ---
Consult Consult Specialty:: Cardiology Referred by:: Dr. Peterson Reason for Consultation:: Tachycardia, palpitations, chest pain - History of Present Illness Chief Complaint: post op from gastric bypass, palpitations, chest pain History of Present Illness: 43 year old woman with pmh HTN, smoking, anxiety, RA, obesity, depression, prior suicide attempts, family history of CAD and from reported [place] at an early age (brother 40 and father 45) h/o gastric sleeve and now s/p gastric bypass surgery. Preop pt underwent an ETT that showed no ischemia and an ECHO that showed normal LVEF and only mild valvular abnl. On review of history including multiple prior visits at [place] pt has chronic sinus tachycardia of uncertain etiology. She is also on multiple anti- HTN meds including amlodipine, losartan, clonidine, and HCTZ. intraoperatively and postoperatively noted to be sinus tachycardia. Last night she had an episode of atypical chest pain that she states resolved with relaxation and pouring cold water on her head. EKG showed sinus rhythm with no sig ST abnl. Echocardiogram 10/28/18: Left Atrium: Normal left atrial size. Left Ventricle: Normal left ventricular size. Paradoxical septal motion. Normal left ventricular ejection fraction. Estimated ejection fraction: 55 %. Right Atrium: Normal right atrial size. Right Ventricle: Normal right ventricular size. Normal right ventricularfunction. Aortic Valve: Normal aortic valve. Minimal aortic valve regurgitation. Mitral Valve: Normal mitral valve. Minimal mitral valve regurgitation. Tricuspid Valve: Normal tricuspid valve. Minimal tricuspid valveregurgitation. Pulmonic Valve: Normal pulmonic valve. Mild pulmonic valve regurgitation. Arteries: Normal sized aortic root. Pericardium/Pleura: No pericardial effusion. Hemodynamics: Doppler pattern suggests prolonged relaxation and normal left atrial pressure (8 - 14mmHg). PASP = 30 mmhg, estimated RAP 5 mmhg. Ejection Fraction: 55.0 % PASP: 30.0 mmHg EKG Stress Test 10/28/18: The patient exercised on a treadmill for 6:00 minutes of the Shola Protocol. Baseline HR: 115 BPM, achieved maximum HR 157 BPM (88% MPHR). Baseline BP: 131/90 mmHg, Maximum BP 164/86 mmHg. Stopped due to fatigue. Resting ECG: NSR @ 115 BPM, normal axis, intervals, no ST or T wave changes. Stress ECG: no ischemic changes. Normal HR and BP response. No arrhythmias. Impression: Normal ECG stress test. No evidence of ischemia. Normal chronotropic response to exercise. - History Source History Provided By: Patient Limitations to Obtaining History: No Limitations - Past Medical History Cardio/Vascular: Yes: HTN Pulmonary: Yes: Sleep Apnea Gastrointestinal: Yes: GERD ...LMP: 04/18/18 Psych: Yes: Anxiety, Panic Rheumatology: Yes: Fibromyalgia - Past Surgical History Past Surgical History: Yes: Arthrosocopy (B/L knee), Bypass (vertical sleeve gastrectomy 2012, abdominoplasty and lipo x 2) - Alcohol/Substance Use Hx Alcohol Use: Yes (OCCASIONAL) - Smoking History Smoking history: Former smoker Have you smoked in the past 12 months: No Aproximately how many cigarettes per day: 20 If you are a former smoker, when did you quit?: 10/14/18 - Social History ADL: Independent Home Medications - Allergies Allergies/Adverse Reactions: Allergies Allergy/AdvReac Type Severity Reaction Status Date / Time shellfish derived Allergy Intermediate Hives Verified 11/04/18 10:47 bupropion HCl Allergy Rash Verified 11/04/18 10:47 [From Wellbutrin] - Home Medications Home Medications: Ambulatory Orders Albuterol Sulfate [Proair Respiclick] 90 mcg IH PRN PRN 05/10/17 Zolpidem Tartrate [Ambien] 12.5 mg PO HS 06/04/17 Sertraline HCl [Zoloft -] 100 mg PO DAILY 06/11/17 cloNIDine HCL [Catapres -] 0.1 mg PO BID 06/11/17 Clonazepam [Klonopin] 1 mg PO BID 07/20/17 Gabapentin 500 mg PO DAILY 04/13/18 Amlodipine Besylate [Norvasc -] 10 mg PO DAILY 09/23/18 Budesonide/Formeterol Fumarate [SYMBICORT 160/4.5mcg -] 1 inh PO DAILY 10/28/18 Etanercept [Enbrel] 50 mg SQ WEEKLY 10/28/18 Fluconazole [Diflucan] 150 mg PO ONCE 10/28/18 Hydrochlorothiazide [Hctz -] 25 mg PO DAILY 10/28/18 Iron 1 tab PO DAILY 10/28/18 Losartan Potassium [Cozaar] 100 mg PO DAILY 10/28/18 Nebulizer [Xianguos Disposable Nebulizer] 1 each MC DAILY 10/28/18 Leflunomide 20 mg PO DAILY 11/03/18 Albuterol Sulfate Inhaler - [Ventolin Hfa Inhaler -] 1 - 2 inh PO QID PRN Omeprazole 40 mg PO DAILY 11/04/18 Oxycodone HCl/Acetaminophen [Percocet 5-325 mg Tablet] 1 tab PO Q6H PRN #20 tablet MDD 4 11/04/18 Prednisone [Deltasone] 20 mg PO PRN PRN 11/04/18 Oxycodone HCl/Acetaminophen [Percocet 10-325 mg Tablet] 1 each PO QID #20 tablet MDD 4 11/07/18 Family Disease History - Family Disease History Family Disease History: Heart Disease: Father, Brother Review of Systems - Review of Systems Constitutional: denies: No Symptoms, Chills, Diaphoresis, Fever, Lethargy, Loss of Appetite, Malaise, Night Sweats, Unintentional Wgt. Loss, Weakness, Other Eyes: denies: No Symptoms, Blind Spots, Blurred Vision, Double Vision, Eye Pain , Floaters, Photophobia, Recent Change in Vision, Other HENT: denies: No Symptoms, Difficult Swallowing, Ear Discharge, Ear Pain, Epistaxis, Gingival Bleeding, Hearing Loss, Mouth Swelling, Nasal Congestion, Ocular Prosthesis, Throat Pain, Toothache, Ringing in Ears, Other Neck: denies: No Symptoms, Decreased ROM, Lumps, Pain on Movement, Stiffness, Swollen Glands, Tenderness, Other Cardiovascular: reports: Chest Pain, Palpitations. denies: No Symptoms, Edema, Shortness of Breath, Other Respiratory: denies: No Symptoms, Cough, Exercise Intolerance, Hemoptysis, Orthopnea, PND, Snoring, SOB, SOB on Exertion, Wheezing, Other Gastrointestinal: denies: No Symptoms, Abdominal Pain, Bloating, Constipation, Diarrhea, Dysphagia, Indigestion, Melena, Nausea, Rectal Bleeding, Vomiting, Vomiting Blood, Other Genitourinary: denies: No Symptoms, Burning, Discharge, Dysuria, Flank Pain, Frequency, Hematuria, Incontinence, Lesions, Menses, Pain, Testicular Mass, Testicular Pain, Testicular Swelling, Urgency, Vaginal Bleeding, Other Breasts: denies: No Symptoms Reported, See HPI, Breast Implants, Discharge from Nipple, Lumps, Pain, Skin Changes, Other Musculoskeletal: denies: No Symptoms, Back Pain, Crepitus, Decreased ROM, Extremity Pain, Joint Pain, Joint Swelling, Muscle Pain, Muscle Cramps, Muscle Weakness, Other Integumentary: denies: No Symptoms, Blister, Bruising, Change in Color, Eczema, Erythema, Incision, Lesions, Lump, Pallor, Pruritis, Rash, Wound, Other Neurological: denies: No Symptoms, Change in LOC, Change in Speech, Confusion, Dizziness, Headache, Incoordination, Numbness, Parasthesia, Pre-Existing Deficit , Seizure, Syncope, Tremors, Unsteady Gait, Weakness, Other Endocrine: denies: No Symptoms, Excessive Sweating, Flushing, Increased Hunger, Increased Thirst, Intolerance to Cold, Intolerance to Heat, Unexplained Weight Gain, Unexplained Weight Loss, Other Hematology/Lymphatic: denies: No Symptoms, Easily Bruised, Excessive Bleeding, Swollen Glands, Other Psychiatric: denies: No Symptoms, Altered Sleep Pattern, Anxiety, Depression, Hallucinations, Panic, Paranoia, Suicidal, Other - Risk Factors Known Risk Factors: Yes: Hypertension Vital Signs: Vital Signs Temperature 98.4 F 11/08/18 14:32 Pulse Rate 71 11/08/18 14:32 Respiratory Rate 20 11/08/18 14:32 Blood Pressure 98/77 11/08/18 14:32 O2 Sat by Pulse Oximetry (%) 98 11/08/18 09:00 Constitutional: Yes: No Distress, Calm, Obese Eyes: Yes: Conjunctiva Clear, EOM Intact, PERRL HENT: Yes: Atraumatic, Normocephalic Neck: Yes: Supple, Trachea Midline Respiratory: Yes: Regular, CTA Bilaterally. No: Rales, Rhonchi, Wheezes Gastrointestinal: Yes: Normal Bowel Sounds, Soft. No: Distention, Tenderness Cardiovascular: Yes: Regular Rate and Rhythm. No: Bradycardia, Tachycardia, Pulse Irregular, Gallop, Rub, Varicosities JVD: No Carotid Bruit: No PMI: Non-Displaced Heart Sounds: Yes: S1, S2. No: Split S2, S3, S4, Clicks, Gallop, Rub, Bruit Murmur: No: Systolic Murmur, Diastolic Murmur Musculoskeletal: Yes: WNL Extremities: Yes: WNL Edema: No Peripheral Pulses WNL: Yes Neurological: Yes: Alert, Oriented Psychiatric: Yes: Alert, Oriented - Other Data Labs, Other Data: CBC, BMP 11/07/18 05:30 11/08/18 13:20 sinus tachycardia. otherwise normal ecg. Echo: Report Reviewed Imaging - Results Chest X-ray: Report Reviewed, Image Reviewed EKG: Report Reviewed, Image Reviewed Other: Report Reviewed, Image Reviewed (tele-nsr, sinus tach no sig arrhythmias) Assessment/Plan 43 year old woman with pmh HTN, smoking, anxiety, RA, obesity, depression, prior suicide attempts, family history of CAD and from reported [place] at an early age (brother 40 and father 45) h/o gastric sleeve and now s/p gastric bypass surgery. Preop pt underwent an ETT that showed no ischemia and an ECHO that showed normal LVEF and only mild valvular abnl. On review of history including multiple prior visits at [place] pt has chronic sinus tachycardia of uncertain etiology. She is also on multiple anti- HTN meds including amlodipine, losartan, clonidine, and HCTZ. intraoperatively and postoperatively noted to be sinus tachycardia. Last night she had an episode of atypical chest pain that she states resolved with relaxation and pouring cold water on her head. EKG showed sinus rhythm with no sig ST abnl. Sinus tach-chronic, noted for years -no arrhythmias on tele -likely due to underlying illnesses, obesity and deconditioning -will add on TFTs to confirm normal, were normal in the past here last 03/2018 -elevated BUN/creat ration and H/H trending up with low normal BP and sinus tach - will give IVF NS through tomorrow am -cont tele overnight Chest pain-1 atypical episode last night, resolved with relaxation and putting cold water on her head -ekg last night showed no ischemia -pain has not recurred -unlikely cardiac origin -preop stress test showed no ischemia and echo showed normal LVEF -no additional inpatient cardiac work up is needed at this time. HTN-on 4 anti-HTN meds at home -BP has been low normal since POD day 1 but was above goal intraop and immediately post op -hold HCTZ and Losartan for now given low normal BP and possible intravascular depletion -can cont clonodine for now to avoid rebound HTN -cont amlodipine for now -recc close outpatient fup and adjustment of medical regimen as needed
--- NOTE | 2018-11-08 16:29 | EKG ---
Test Reason : Blood Pressure : / mmHG Vent. Rate : 110 BPM Atrial Rate : 110 BPM P-R Int : 118 ms QRS Dur : 086 ms QT Int : 424 ms P-R-T Axes : 011 -27 037 degrees QTc Int : 573 ms SINUS TACHYCARDIA MODERATE VOLTAGE CRITERIA FOR LVH, MAY BE NORMAL VARIANT PROLONGED QT ABNORMAL ECG WHEN COMPARED WITH ECG OF 23-SEP-2018 05:27, NO SIGNIFICANT CHANGE WAS FOUND Confirmed by Manuel Colin ([id number]) on 11/08/2018 4:28:39 PM Referred By: Jesús Peterson Confirmed By:Manuel Colin
[2018-11-08] MEDS: SODIUM CHLORIDE 1,000 ML IV SCH (16:50)
[2018-11-09] MEDS: MORPHINE SULFATE 2 MG/ML VIAL IVPUSH PRN ×6 (00:11→22:27)
[2018-11-09] MEDS: clonazePAM 0.5 MG TABLET PO PRN (00:12)
[2018-11-09 06:43] LABS: HEMATOCRIT 39.6 % (32.4-45.2); MCH 31.9 pg (25.7-33.7); MCHC 32.9 g/dl (32.0-36.0); MEAN CELL VOLUME 96.8 fl (80-96); MEAN PLT VOLUME 9.9 fl (7.5-11.1); PLATELET COUNT 170 K/MM3 (134-434); RBC 4.08 M/mm3 (3.60-5.2); RDW 14.2 % (11.6-15.6); WHITE BLOOD COUNT 4.5 K/mm3 (4.0-10.0)
[2018-11-09 07:34] LABS: ALBUMIN 2.9 g/dl (3.4-5.0); ALK PHOS 91 U/L (45-117); ANION GAP 10 MMOL/L (8-16); BILIRUBIN,TOTAL 0.4 mg/dL (0.2-1); BLOOD UREA NITROGEN 23 mg/dL (7-18); CALCIUM 7.8 mg/dL (8.5-10.1); CHLORIDE 104 mmol/L (98-107); CO2 23 mmol/L (21-32); CREATININE 1.4 mg/dL (0.55-1.3); GLUCOSE,RANDOM 86 mg/dL (74-106); POTASSIUM 4.1 mmol/L (3.5-5.1); SGOT/AST 38 U/L (15-37); SGPT/ALT 223 U/L (13-61); SODIUM 138 mmol/L (136-145); TOT PROT 6.6 g/dl (6.4-8.2)
[2018-11-09] MEDS: cloNIDine HCL 0.1 MG TABLET PO SCH ×2 (09:16→21:50)
[2018-11-09] MEDS: ENOXAPARIN NA (PORCINE) 40 MG/0.4 ML DISP.SYRIN SQ SCH ×2 (09:17→21:51)
[2018-11-09] MEDS: amLODIPine BESYLATE 10 MG TABLET (FP) PO SCH (09:17)
[2018-11-09] MEDS: POTASSIUM CHLORIDE TABS 20 MEQ TABLET.ER (FP) PO SCH ×2 (09:17→21:50)
[2018-11-09] MEDS: PANTOPRAZOLE 20 MG TABLET (FP) PO SCH ×2 (09:17→21:50)
[2018-11-09] MEDS: BUDESONIDE/FORMETEROL FUMARATE 160/4.5 mcg INHALER IH SCH ×2 (09:28→21:52)
--- NOTE | 2018-11-09 11:04 | PN ---
Progress Note, Physician History of Present Illness: PULMONARY ALERT,NO DISTRESS,-SOB - Current Medication List Current Medications: Active Medications Al Hydroxide/Mg Hydroxide (Mylanta Oral Suspension -) 30 ml PO Q6H PRN PRN Reason: INDIGESTION Last Admin: 11/08/18 21:55 Dose: 30 ml Albuterol Sulfate (Ventolin Hfa Inhaler -) 2 puff IH Q4H PRN PRN Reason: SHORT OF BREATH/WHEEZING Albuterol Sulfate (Ventolin 0.083% Nebulizer Soln -) 1 amp NEB Q4H PRN PRN Reason: SHORT OF BREATH/WHEEZING Amlodipine Besylate (Norvasc -) 10 mg PO DAILY [facility] Last Admin: 11/09/18 09:17 Dose: 10 mg Budesonide/Formoterol Fumarate (Symbicort 160/4.5mcg -) 2 puff IH BID [facility] Last Admin: 11/09/18 09:28 Dose: 2 puff Clonazepam (Klonopin -) 1 mg PO Q12H PRN PRN Reason: ANXIETY Last Admin: 11/09/18 00:12 Dose: 1 mg Clonidine (Catapres -) 0.1 mg PO BID [facility] Last Admin: 11/09/18 09:16 Dose: 0.1 mg Enoxaparin Sodium (Lovenox -) 40 mg SQ BID [facility] Last Admin: 11/09/18 09:17 Dose: 40 mg Fentanyl (Sublimaze Injection -) 50 mcg IVPUSH [id number] PRN PRN Reason: PAIN-PACU ORDER X 4 DOSES ONLY Last Admin: 11/04/18 17:30 Dose: 50 mcg Sodium Chloride (Normal Saline -) 1,000 mls @ 125 mls/hr IV ASDIR [facility] Last Admin: 11/08/18 16:50 Dose: 125 mls/hr Morphine Sulfate (Morphine Sulfate) 1 mg IVPUSH Q3H PRN PRN Reason: PAIN LEVEL 1-5 Last Admin: 11/09/18 09:18 Dose: 1 mg Ondansetron HCl (Zofran Injection) 4 mg IVPUSH Q6H PRN PRN Reason: NAUSEA AND/OR VOMITING Ondansetron HCl (Zofran Injection) 4 mg IVPUSH Q6H PRN PRN Reason: NAUSEA AND/OR VOMITING Ondansetron HCl (Zofran Injection) 4 mg IVPUSH Q4H PRN PRN Reason: NAUSEA AND/OR VOMITING Pantoprazole Sodium (Protonix -) 20 mg PO BID [facility] Last Admin: 11/09/18 09:17 Dose: 20 mg Potassium Chloride (K-Dur -) 20 meq PO BID [facility] Last Admin: 11/09/18 09:17 Dose: 20 meq Promethazine HCl (Phenergan Injection -) 12.5 mg IVPB Q6H PRN PRN Reason: NAUSEA-FOR RESCUE AFTER 15 MIN - Objective Vital Signs: Vital Signs Temperature 98.0 F 11/09/18 10:00 Pulse Rate 84 11/09/18 10:00 Respiratory Rate 20 11/09/18 10:00 Blood Pressure 117/64 11/09/18 10:00 O2 Sat by Pulse Oximetry (%) 97 11/09/18 09:00 Constitutional: Yes: Well Nourished, Calm Eyes: Yes: WNL HENT: Yes: WNL Neck: Yes: WNL Cardiovascular: Yes: Regular Rate and Rhythm, S1, S2 Respiratory: Yes: CTA Bilaterally Gastrointestinal: Yes: Normal Bowel Sounds, Soft Extremities: Yes: WNL Edema: No Labs: CBC, BMP 11/09/18 05:30 11/09/18 05:30 Problem List - Problems (1) Lung nodule < 6cm on CT Code(s): R91.1 - SOLITARY PULMONARY NODULE (2) Asthma Code(s): J45.909 - UNSPECIFIED ASTHMA, UNCOMPLICATED (3) GERD (gastroesophageal reflux disease) Code(s): K21.9 - GASTRO-ESOPHAGEAL REFLUX DISEASE WITHOUT ESOPHAGITIS (4) HTN (hypertension) Code(s): I10 - ESSENTIAL (PRIMARY) HYPERTENSION (5) S/P gastric bypass Code(s): Z98.84 - BARIATRIC SURGERY STATUS Assessment/Plan IMP S/P LAPROSCOPIC GASTRIC BYPASS CHRONIC ASTHMA STABLE GERD HTN RLL NODULE ELEVATED LFTS IMPROVING PLAN INCENTIVE SPIROMETER INHALED BRONCHODILATORS ANALGESICS NEEDED DVT PROPHYLAXIS F/U CHEST CT OUTPATIENT RLL TO DOCUMENT STABILITY TREND LFTS DR STEPHENSON Problem List - Problems (1) Lung nodule < 6cm on CT Code(s): R91.1 - SOLITARY PULMONARY NODULE (2) Asthma Code(s): J45.909 - UNSPECIFIED ASTHMA, UNCOMPLICATED (3) GERD (gastroesophageal reflux disease) Code(s): K21.9 - GASTRO-ESOPHAGEAL REFLUX DISEASE WITHOUT ESOPHAGITIS (4) HTN (hypertension) Code(s): I10 - ESSENTIAL (PRIMARY) HYPERTENSION (5) S/P gastric bypass Code(s): Z98.84 - BARIATRIC SURGERY STATUS
[2018-11-09] MEDS: SODIUM CHLORIDE 1,000 ML IV SCH (15:58)
--- NOTE | 2018-11-09 16:20 | PN ---
Progress Note, Physician Chief Complaint: Telem NSR Sinus tachy Comfortable. History of Present Illness: 43 year old woman with pmh HTN, smoking, anxiety, RA, obesity, depression, prior suicide attempts, family history of CAD and from reported [place] at an early age (brother 40 and father 45) h/o gastric sleeve and now s/p gastric bypass surgery. Preop pt underwent an ETT that showed no ischemia and an ECHO that showed normal LVEF and only mild valvular abnl. On review of history including multiple prior visits at [place] pt has chronic sinus tachycardia of uncertain etiology. She is also on multiple anti- HTN meds including amlodipine, losartan, clonidine, and HCTZ. intraoperatively and postoperatively noted to be sinus tachycardia. Last night she had an episode of atypical chest pain that she states resolved with relaxation and pouring cold water on her head. EKG showed sinus rhythm with no sig ST abnl. Echocardiogram 10/28/18: Left Atrium: Normal left atrial size. Left Ventricle: Normal left ventricular size. Paradoxical septal motion. Normal left ventricular ejection fraction. Estimated ejection fraction: 55 %. Right Atrium: Normal right atrial size. Right Ventricle: Normal right ventricular size. Normal right ventricularfunction. Aortic Valve: Normal aortic valve. Minimal aortic valve regurgitation. Mitral Valve: Normal mitral valve. Minimal mitral valve regurgitation. Tricuspid Valve: Normal tricuspid valve. Minimal tricuspid valveregurgitation. Pulmonic Valve: Normal pulmonic valve. Mild pulmonic valve regurgitation. Arteries: Normal sized aortic root. Pericardium/Pleura: No pericardial effusion. Hemodynamics: Doppler pattern suggests prolonged relaxation and normal left atrial pressure (8 - 14mmHg). PASP = 30 mmhg, estimated RAP 5 mmhg. Ejection Fraction: 55.0 % PASP: 30.0 mmHg EKG Stress Test 10/28/18: The patient exercised on a treadmill for 6:00 minutes of the Shola Protocol. Baseline HR: 115 BPM, achieved maximum HR 157 BPM (88% MPHR). Baseline BP: 131/90 mmHg, Maximum BP 164/86 mmHg. Stopped due to fatigue. Resting ECG: NSR @ 115 BPM, normal axis, intervals, no ST or T wave changes. Stress ECG: no ischemic changes. Normal HR and BP response. No arrhythmias. Impression: Normal ECG stress test. No evidence of ischemia. Normal chronotropic response to exercise. - Current Medication List Current Medications: Active Medications Al Hydroxide/Mg Hydroxide (Mylanta Oral Suspension -) 30 ml PO Q6H PRN PRN Reason: INDIGESTION Last Admin: 11/08/18 21:55 Dose: 30 ml Albuterol Sulfate (Ventolin Hfa Inhaler -) 2 puff IH Q4H PRN PRN Reason: SHORT OF BREATH/WHEEZING Albuterol Sulfate (Ventolin 0.083% Nebulizer Soln -) 1 amp NEB Q4H PRN PRN Reason: SHORT OF BREATH/WHEEZING Amlodipine Besylate (Norvasc -) 10 mg PO DAILY [facility] Last Admin: 11/09/18 09:17 Dose: 10 mg Budesonide/Formoterol Fumarate (Symbicort 160/4.5mcg -) 2 puff IH BID [facility] Last Admin: 11/09/18 09:28 Dose: 2 puff Clonazepam (Klonopin -) 1 mg PO Q12H PRN PRN Reason: ANXIETY Last Admin: 11/09/18 00:12 Dose: 1 mg Clonidine (Catapres -) 0.1 mg PO BID [facility] Last Admin: 11/09/18 09:16 Dose: 0.1 mg Enoxaparin Sodium (Lovenox -) 40 mg SQ BID [facility] Last Admin: 11/09/18 09:17 Dose: 40 mg Fentanyl (Sublimaze Injection -) 50 mcg IVPUSH [id number] PRN PRN Reason: PAIN-PACU ORDER X 4 DOSES ONLY Last Admin: 11/04/18 17:30 Dose: 50 mcg Sodium Chloride (Normal Saline -) 1,000 mls @ 125 mls/hr IV ASDIR [facility] Last Admin: 11/08/18 16:50 Dose: 125 mls/hr Morphine Sulfate (Morphine Sulfate) 1 mg IVPUSH Q3H PRN PRN Reason: PAIN LEVEL 1-5 Last Admin: 11/09/18 15:28 Dose: 1 mg Ondansetron HCl (Zofran Injection) 4 mg IVPUSH Q6H PRN PRN Reason: NAUSEA AND/OR VOMITING Ondansetron HCl (Zofran Injection) 4 mg IVPUSH Q6H PRN PRN Reason: NAUSEA AND/OR VOMITING Ondansetron HCl (Zofran Injection) 4 mg IVPUSH Q4H PRN PRN Reason: NAUSEA AND/OR VOMITING Pantoprazole Sodium (Protonix -) 20 mg PO BID [facility] Last Admin: 11/09/18 09:17 Dose: 20 mg Potassium Chloride (K-Dur -) 20 meq PO BID [facility] Last Admin: 11/09/18 09:17 Dose: 20 meq Promethazine HCl (Phenergan Injection -) 12.5 mg IVPB Q6H PRN PRN Reason: NAUSEA-FOR RESCUE AFTER 15 MIN - Objective Vital Signs: Vital Signs Temperature 97.9 F 11/09/18 14:10 Pulse Rate 79 11/09/18 14:10 Respiratory Rate 20 11/09/18 14:10 Blood Pressure 115/57 L 11/09/18 14:10 O2 Sat by Pulse Oximetry (%) 97 11/09/18 09:00 Constitutional: Yes: Well Nourished, No Distress Eyes: Yes: Conjunctiva Clear HENT: Yes: Atraumatic, Normocephalic Neck: Yes: Supple, Trachea Midline Cardiovascular: Yes: Regular Rate and Rhythm. No: Pulse Irregular, JVD Respiratory: Yes: Regular, CTA Bilaterally Gastrointestinal: Yes: Normal Bowel Sounds Labs: CBC, BMP 11/09/18 05:30 11/09/18 05:30 Problem List - Problems (1) S/P gastric bypass Code(s): Z98.84 - BARIATRIC SURGERY STATUS Assessment/Plan 43 year old woman with pmh HTN, smoking, anxiety, RA, obesity, depression, prior suicide attempts, family history of CAD and from reported [place] at an early age (brother 40 and father 45) h/o gastric sleeve and now s/p gastric bypass surgery. Preop pt underwent an ETT that showed no ischemia and an ECHO that showed normal LVEF and only mild valvular abnl. On review of history including multiple prior visits at [place] pt has chronic sinus tachycardia of uncertain etiology. She is also on multiple anti- HTN meds including amlodipine, losartan, clonidine, and HCTZ. intraoperatively and postoperatively noted to be sinus tachycardia. Last night she had an episode of atypical chest pain that she states resolved with relaxation and pouring cold water on her head. EKG showed sinus rhythm with no sig ST abnl. Sinus tach-chronic, noted for years -no arrhythmias on tele -likely due to underlying illnesses, obesity and deconditioning TFT normaL HR improved. Chest pain-1 atypical episode last night, resolved with relaxation and putting cold water on her head -no recurrence -no additional inpatient cardiac work up is needed at this time. HTN-on 4 anti-HTN meds at home -BP has been low normal since POD day 1 but was above goal intraop and immediately post op -hold HCTZ and Losartan for now given low normal BP and possible intravascular depletion -can cont clonodine for now to avoid rebound HTN -cont amlodipine for now -recc close outpatient fup and adjustment of medical regimen as needed Will see as needed.
[2018-11-09] MEDS: MAG HYDROX/AL HYDROX/SIMETH 30 ML UNIT-DOSE CUP PO PRN (23:10)
[2018-11-10] MEDS: MORPHINE SULFATE 2 MG/ML VIAL IVPUSH PRN ×3 (06:17→12:48)
[2018-11-10] MEDS: PANTOPRAZOLE 20 MG TABLET (FP) PO SCH (09:33)
[2018-11-10] MEDS: amLODIPine BESYLATE 10 MG TABLET (FP) PO SCH (09:33)
[2018-11-10] MEDS: cloNIDine HCL 0.1 MG TABLET PO SCH (09:33)
[2018-11-10] MEDS: clonazePAM 0.5 MG TABLET PO PRN (09:36)
[2018-11-10] MEDS: ENOXAPARIN NA (PORCINE) 40 MG/0.4 ML DISP.SYRIN SQ SCH (09:37)
[2018-11-10] MEDS: POTASSIUM CHLORIDE TABS 20 MEQ TABLET.ER (FP) PO SCH (09:37)
[2018-11-10] MEDS: BUDESONIDE/FORMETEROL FUMARATE 160/4.5 mcg INHALER IH SCH (09:39)
[2018-11-10] MEDS: MAG HYDROX/AL HYDROX/SIMETH 30 ML UNIT-DOSE CUP PO PRN (10:34)
--- NOTE | 2018-11-10 12:18 | PN ---
Progress Note (short form) - Note Progress Note: PULMONARY Denies shortness of breath. Still with intermittent palpitations. Vital Signs Period Temp Pulse Resp BP Sys/Ryan Pulse Ox Last 24 Hr 97 F-98.2 F 70-79 18-20 99-139/54-68 97-98 Gen: NAD at rest Heart: RRR Lung: decreased breath sounds at the bases Abd: soft, nontender Ext: no edema CBC, BMP 11/09/18 05:30 11/09/18 05:30 Active Medications Al Hydroxide/Mg Hydroxide (Mylanta Oral Suspension -) 30 ml PO Q6H PRN PRN Reason: INDIGESTION Last Admin: 11/10/18 10:34 Dose: 30 ml Albuterol Sulfate (Ventolin Hfa Inhaler -) 2 puff IH Q4H PRN PRN Reason: SHORT OF BREATH/WHEEZING Albuterol Sulfate (Ventolin 0.083% Nebulizer Soln -) 1 amp NEB Q4H PRN PRN Reason: SHORT OF BREATH/WHEEZING Amlodipine Besylate (Norvasc -) 10 mg PO DAILY [facility] Last Admin: 11/10/18 09:33 Dose: 10 mg Budesonide/Formoterol Fumarate (Symbicort 160/4.5mcg -) 2 puff IH BID [facility] Last Admin: 11/10/18 09:39 Dose: 2 puff Clonazepam (Klonopin -) 1 mg PO Q12H PRN PRN Reason: ANXIETY Last Admin: 11/10/18 09:36 Dose: 1 mg Clonidine (Catapres -) 0.1 mg PO BID [facility] Last Admin: 11/10/18 09:33 Dose: 0.1 mg Enoxaparin Sodium (Lovenox -) 40 mg SQ BID [facility] Last Admin: 11/10/18 09:37 Dose: 40 mg Fentanyl (Sublimaze Injection -) 50 mcg IVPUSH [id number] PRN PRN Reason: PAIN-PACU ORDER X 4 DOSES ONLY Last Admin: 11/04/18 17:30 Dose: 50 mcg Sodium Chloride (Normal Saline -) 1,000 mls @ 125 mls/hr IV ASDIR [facility] Last Admin: 11/09/18 15:58 Dose: 125 mls/hr Morphine Sulfate (Morphine Sulfate) 1 mg IVPUSH Q3H PRN PRN Reason: PAIN LEVEL 1-5 Last Admin: 11/10/18 09:37 Dose: 1 mg Ondansetron HCl (Zofran Injection) 4 mg IVPUSH Q6H PRN PRN Reason: NAUSEA AND/OR VOMITING Ondansetron HCl (Zofran Injection) 4 mg IVPUSH Q6H PRN PRN Reason: NAUSEA AND/OR VOMITING Ondansetron HCl (Zofran Injection) 4 mg IVPUSH Q4H PRN PRN Reason: NAUSEA AND/OR VOMITING Pantoprazole Sodium (Protonix -) 20 mg PO BID [facility] Last Admin: 11/10/18 09:33 Dose: 20 mg Potassium Chloride (K-Dur -) 20 meq PO BID [facility] Last Admin: 11/10/18 09:37 Dose: 20 meq Promethazine HCl (Phenergan Injection -) 12.5 mg IVPB Q6H PRN PRN Reason: NAUSEA-FOR RESCUE AFTER 15 MIN A/P s/p Laparoscopic Gastric Bypass Ashtma Lung Nodule GERD HTN - inhaled bronchodilators as needed - pain control - incentive spirometry - DVT prophylaxis - outpt f/u of lung nodule
[2018-11-10 13:21] LABS: ALBUMIN 2.9 g/dl (3.4-5.0); ALK PHOS 96 U/L (45-117); ANION GAP 5 MMOL/L (8-16); BILIRUBIN,TOTAL 0.4 mg/dL (0.2-1); BLOOD UREA NITROGEN 8 mg/dL (7-18); CALCIUM 8.1 mg/dL (8.5-10.1); CHLORIDE 106 mmol/L (98-107); CO2 26 mmol/L (21-32); GLUCOSE,RANDOM 95 mg/dL (74-106); POTASSIUM 4.3 mmol/L (3.5-5.1); SGOT/AST 28 U/L (15-37); SGPT/ALT 150 U/L (13-61); SODIUM 137 mmol/L (136-145); TOT PROT 6.9 g/dl (6.4-8.2)
[2018-11-10 15:06] VITALS: BP 133/68; PULSE 75; TEMP 98.4
--- NOTE | 2018-11-10 16:50 | PN ---
Progress Note (short form) - Note Progress Note: POD#6 Pul, Card notes appreciated Afebrile BP-133/68 P-70-76 Pt doing well Tolerating clear liquids 3 oz PO TID Labs: AST- 28 ALT-150 P- D/C pt home PO clear liquids- 3 oz PO 4-5 times per day F/U in 1 week
[2018-11-10] MEDS: SODIUM CHLORIDE 1,000 ML IV SCH (16:52)
--- NOTE | 2018-11-11 10:03 | DS ---
DATE OF ADMISSION: 11/04/2018 DATE OF DISCHARGE: 11/10/2018 HISTORY OF PRESENT ILLNESS AND HOSPITAL COURSE: The patient is a 43-year-old woman who was admitted to [facility] on November 04, 2018, with a history of morbid obesity for elective laparoscopic gastric bypass surgery. The details of the operation are described in the operative note. Postoperatively the patient was sent to the recovery room where she was stabilized and sent to the telemetry unit. She remained on telemetry where the following day she had an upper GI Gastrografin swallow which showed no leakage of contrast and also showed no obstruction. She had been on clear liquid 1 ounce 3 times a day and had that gradually increased until she hit a maximum on Wednesday, November 07, 2018. She was up to 3 ounces 3 times a day. The patient's only issue after surgery was noted to have an intermittent heart rate going up to 100 to 110 although it would then come down to the 80s and 90s. She also had a history of high blood pressure on 4 medications, but after postoperative day 3 she started having low blood pressure, dropping into low 100s and even in the 90s systolic. 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 This stabilized her blood pressure and her heart rate eventually became stabilized into the 70s and 80s, although had intermittent episodes of tachycardia which is well known for the patient prior to this admission. On November 10, 2018, with the patient tolerating 3 ounces of clear liquid 3 times a day, sips of water throughout the day and blood pressure and vital signs are now normal as are her labs she is scheduled to be discharged home. Full instructions were given to the patient and they were also given to her in writing and she will follow up with the bariatric service in 1 week. PRITESH DELATORRE M.D. [id number]
== END 2018-11-10 17:58 | disposition home or self-care (01) | DRG 621 ==
LOC: JSAMEDAYSX 11-04 09:46 → J4W 11-04 18:40
PROVIDERS: ADMIT Surgery; ATTEND Surgery
PROC: 0DB64Z3 Excision of Stomach, Percutaneous Endoscopic Approach, Vertical (ICD-10-PCS; principal; 2018-11-04 11:00)
DX: E66.01 Morbid (severe) obesity due to excess calories (principal); Z68.32 Body mass index [BMI] 32.0-32.9, adult; J45.909 Unspecified asthma, uncomplicated; R91.1 Solitary pulmonary nodule; K21.9 Gastro-esophageal reflux disease without esophagitis; I10 Essential (primary) hypertension; R00.0 Tachycardia, unspecified; R07.89 Other chest pain
CPT/HCPCS: 36415; 74241-TC-FY; 80053; 81003; 81015; 84443; 84703; 85027; 86850; 86900; 86901; 93005; 93010; 94760; J0735; J7030

== ENCOUNTER 2018-11-22 03:08 | Emergency (ER) | payer BC ==
--- NOTE | 2018-11-22 03:10 | PDOC ---
History of Present Illness - General Chief Complaint: Chest Pain Stated Complaint: CHEST PAIN TODAY Time Seen by Provider: 11/22/18 03:10 - History of Present Illness Initial Comments: 11/22/18 03:50 This 43-year-old woman with HTN/asthma/depression/osteoporosis/fibromyalgia/GERD , 2 weeks s/p laparoscopic gastric bypass surgery at [facility](Dr Peterson) presents with a one-day history of anterior chest pressure and bilateral lower leg pain. Patient states that she had been doing well after discharge from [facility] on 11/10 until approx 12 hours prior to presentation when symptoms began. Patient states that she has increased pressure sensation in her chest with walking and other strenuous activity although she is mostly at bed rest since being discharged. She states that she has pain in bilateral calves and anterior thighs, worse with ambulation for the same period of time. She denies lower extremity edema/productive cough/previous thromboembolic disease. She has had no recent fever/chills, wheezing, upper respiratory symptoms, nausea/ vomiting/diarrhea. Patient states that she has been attempting to eat 6 small meals a day as prescribed after gastric bypass surgery Patient states that she has been taking her medications as prescribed (2 of 4 antihypertension medications have been stopped secondary to decrease in her blood pressure after surgery) except for gabapentin (for fibromyalgia pain) which she sometimes forgets to take Risk factors for CAD: HTN/ smoking/FH of early [place] Past History - Past Medical History Allergies/Adverse Reactions: Allergies Allergy/AdvReac Type Severity Reaction Status Date / Time shellfish derived Allergy Intermediate Hives Verified 11/22/18 03:10 bupropion HCl Allergy Rash Verified 11/22/18 03:10 [From Wellbutrin] Home Medications: Ambulatory Orders Albuterol Sulfate [Proair Respiclick] 90 mcg IH PRN PRN 05/10/17 Zolpidem Tartrate [Ambien] 12.5 mg PO HS 06/04/17 Sertraline HCl [Zoloft -] 100 mg PO DAILY 06/11/17 cloNIDine HCL [Catapres -] 0.1 mg PO BID 06/11/17 Clonazepam [Klonopin] 1 mg PO BID 07/20/17 Gabapentin 500 mg PO DAILY 04/13/18 Amlodipine Besylate [Norvasc -] 10 mg PO DAILY 09/23/18 Budesonide/Formeterol Fumarate [SYMBICORT 160/4.5mcg -] 1 inh PO DAILY 10/28/18 Etanercept [Enbrel] 50 mg SQ WEEKLY 10/28/18 Iron 1 tab PO DAILY 10/28/18 Nebulizer [Airs Disposable Nebulizer] 1 each MC DAILY 10/28/18 Leflunomide 20 mg PO DAILY 11/03/18 Albuterol Sulfate Inhaler - [Ventolin HFA Inhaler -] 1 - 2 inh PO QID PRN Omeprazole 40 mg PO DAILY 11/04/18 Oxycodone HCl/Acetaminophen [Percocet 10-325 mg Tablet] 1 each PO QID #20 tablet MDD 4 11/07/18 Anemia: Yes Asthma: Yes (USES INHALER,PROAIR, was unable to refill inhaler) Cancer: No Cardiac Disorders: No CVA: No COPD: No CHF: No Dementia: No Diabetes: No GI Disorders: Yes (GERD) Disorders: No HTN: Yes Hypercholesterolemia: No Liver Disease: No Psychiatric Problems: Yes (DEPRESSION) Seizures: No Thyroid Disease: No - Surgical History Abdominal Surgery: Yes (VERTICAL SLEEVE GASTRECTOMY 2012, ABDOMINOPLASTY/AND REVISION, LIPO X2,) Appendectomy: No Cardiac Surgery: No Cholecystectomy: No Lung Surgery: No Neurologic Surgery: No Orthopedic Surgery: Yes (RIGHT KNEE, SHOULDER SX, WRIST SX) - Suicide/Smoking/Psychosocial Hx Smoking Status: No Smoking History: Former smoker Years of Tobacco Use: 24 Have you smoked in the past 12 months: No Number of Cigarettes Smoked Daily: 20 If you are a former smoker, when did you quit?: 10/14/18 'Breaking Loose' booklet given: 03/31/18 Hx Alcohol Use: Yes (OCCASIONAL) Drug/Substance Use Hx: No Substance Use Type: None Hx Substance Use Treatment: No Cardiac Specific PMH - Complaint Specific PMHX Pacemaker: No Review of Systems - Review of Systems Able to Perform ROS?: Yes Comments:: 12 point review of systems is negative except for what is noted in the history of present illness *Physical Exam - Vital Signs Last Vital Signs Temp Pulse Resp BP Pulse Ox 98.4 F 103 H 16 123/79 98 11/22/18 03:11 11/22/18 03:11 11/22/18 03:11 11/22/18 03:11 11/22/18 03:11 - Physical Exam Comments: GENERAL: Adult female, alert and oriented 3, in no acute distress. No respiratory distress present Vital signs on presentation: T 98.4F, HR 103/minute 123/ 79 RR 16/min pulse ox 98% on room air HEAD: Normal with no signs of trauma. EYES: PERRLA, EOMI, sclera anicteric, conjunctiva clear. ENT: Ears normal, nares patent, oropharynx clear without exudates. Moist mucous membranes. NECK: Normal range of motion, supple without lymphadenopathy, JVD, or masses. LUNGS: Breath sounds equal, clear to auscultation bilaterally. No wheezes, and no crackles. HEART:Regular rate and rhythm, normal S1 and S2 without murmur, rub or gallop. ABDOMEN:.normal bowel sounds No guarding,tenderness or rebound.No masses No distention. laparascopic incisions mildly widened but non- tender; no drainage noted EXTREMITIES: Normal range of motion, No clubbing or cyanosis. No lower extremity edema or tenderness present. NEUROLOGICAL: Cranial nerves II through XII grossly intact. Normal speech. No focal neurological deficits. MUSCULOSKELETAL: Back non-tender to palpation, no CVA tenderness SKIN: Warm, Dry, normal turgor, no rashes or lesions noted. 12-lead electrocardiogram is performed and interpreted by me: Normal sinus rhythm and 93 bpm; wave forms, axis and intervals are all normal. No evidence of acute ST or T-wave abnormalities. No evidence of acute cardiac arrhythmia. Compared to 12-lead EKG performed 11/07/18 there are no significant changes Moderate Sedation - Procedure Monitoring Vital Signs: Procedure Monitoring Vital Signs Temperature 98.4 F 11/22/18 03:11 Pulse Rate 103 H 11/22/18 03:11 Respiratory Rate 16 11/22/18 03:11 Blood Pressure 123/79 11/22/18 03:11 O2 Sat by Pulse Oximetry (%) 98 11/22/18 03:11 ED Treatment Course - LABORATORY CBC & Chemistry Diagram: 11/22/18 04:05 11/22/18 04:05 - ADDITIONAL ORDERS Additional order review: Laboratory Results 11/22/18 11/22/18 11/22/18 04:05 04:05 04:05 PT with INR 12.80 INR 1.08 Sodium Potassium Chloride Carbon Dioxide Anion Gap BUN Creatinine Creat Clearance w eGFR Random Glucose Calcium Total Bilirubin AST ALT Alkaline Phosphatase Creatine Kinase Troponin I Total Protein Albumin Serum , Qual Negative Urine Color Yellow Urine Appearance Cloudy Urine pH 5.0 Ur Specific [place] 1.030 Urine Protein 1+ H Urine Glucose (UA) Negative Urine Ketones Trace H Urine Blood Negative Urine Nitrite Negative Urine Bilirubin Negative Urine Urobilinogen Negative Ur Leukocyte Esterase Negative Urine WBC (Auto) 5 Urine RBC (Auto) 4 Ur Epithelial Cells Moderate Urine Bacteria Many Hyaline Casts 3 Urine Mucus Few 11/22/18 04:05 PT with INR INR Sodium 136 Potassium 3.5 Chloride 103 Carbon Dioxide 27 Anion Gap 6 L BUN 10 Creatinine 0.9 Creat Clearance w eGFR > 60 Random Glucose 105 Calcium 8.5 Total Bilirubin 0.2 AST 19 ALT 27 Alkaline Phosphatase 99 Creatine Kinase 88 Troponin I < 0.02 Total Protein 6.7 Albumin 3.2 L Serum , Qual Urine Color Urine Appearance Urine pH Ur Specific [place] Urine Protein Urine Glucose (UA) Urine Ketones Urine Blood Urine Nitrite Urine Bilirubin Urine Urobilinogen Ur Leukocyte Esterase Urine WBC (Auto) Urine RBC (Auto) Ur Epithelial Cells Urine Bacteria Hyaline Casts Urine Mucus 11/22/18 04:05 RBC 3.69 MCV 95.3 MCHC 34.5 RDW 14.6 MPV 9.6 Neutrophils % 49.2 D Lymphocytes % 36.6 D Monocytes % 11.6 H Eosinophils % 1.8 Basophils % 0.8 Medical Decision Making - Medical Decision Making As noted above, this 43-year-old woman with hypertension/fibromyalgia/depression /asthma and 2 weeks after laparoscopic bariatric surgery presents with 1 day history of anterior chest pressure, worse with exertion. She also has had for the same period of time pain in her calves and bilateral anterior thighs. There has been no edema of either leg. Exam as noted. Patient has risk factors for coronary artery disease (HTN/smoking history/ family history) but stress test performed preoperatively on 10/28/18 is normal without evidence of ischemia and echocardiogram showed normal left ventricular EF. Patient has clear risk factor for PE with prolonged immobilization/recent surgery. Also, patient is nominally tachycardic (103/minute )on presentation although she has history of chronic sinus tachycardia of unclear etiology. Bilateral lower extremity pain is of concern and could be a sign of DVT, however she has no edema on exam and both legs are nontender throughout. Still , because patient has been immobile and has had recent surgery and is on no anticoagulation, evaluation to rule out thromboembolic process will be pursued. Alternative diagnoses possible for chest pressure/leg pain would include fibromyalgia (patient has not been reliably taking gabapentin prescribed for her fibromyalgia pain), CBC/chemistry profile/INR/troponin/UA sent Patient requested to eat but was told that it was not a good idea to take anything by mouth until full evaluation was completed. 11/22/18 05:16 While awaiting laboratory evaluation and further imaging, patient removed IV and eloped. 11/22/18 05:41 Patient called into the ER by phone and spoke to nursing staff: Stated that she removed IV and left because needed to smoke if she could not eat. She was informed that she would need to be re- registered and new IV placed prior to imaging (CT) performed. She would likely need to stay until radiology day staff arrived at 7 AM. She stated then that she would return to ER later *DC/Admit/Observation/Transfer Diagnosis at time of Disposition: Chest pain Qualifiers: Chest pain type: unspecified Qualified Code(s): R07.9 - Chest pain, unspecified - Discharge Dispostion Disposition: ELOPED Condition at time of disposition: Stable - Referrals - Patient Instructions - Post Discharge Activity
[2018-11-22 04:19] VITALS: BP 123/79; PULSE 103; TEMP 98.4; BMI 30.8
[2018-11-22 04:50] LABS: BASO % 0.8 % (0-2.0); EOS % 1.8 % (0-4.5); HEMATOCRIT 35.2 % (32.4-45.2); HEMOGLOBIN 12.1 GM/dL (10.7-15.3); LYMPH % 36.6 % (8-40); MCH 32.9 pg (25.7-33.7); MCHC 34.5 g/dl (32.0-36.0); MEAN CELL VOLUME 95.3 fl (80-96); MEAN PLT VOLUME 9.6 fl (7.5-11.1); MONO % 11.6 % (3.8-10.2); NEUT % 49.2 % (42.8-82.8); PLATELET COUNT 309 K/MM3 (134-434); RBC 3.69 M/mm3 (3.60-5.2); RDW 14.6 % (11.6-15.6); WHITE BLOOD COUNT 4.2 K/mm3 (4.0-10.0)
[2018-11-22 04:52] LABS: URINE APPEARANCE CLOUDY; URINE BILIRUBIN NEGATIVE (<2.0 mg/dL); URINE COLOR YELLOW; URINE GLUCOSE (UA) NEGATIVE (NEGATIVE); URINE KETONE TRACE (NEGATIVE); URINE LEUK ESTERASE NEGATIVE (NEGATIVE); URINE NITRITE NEGATIVE (NEGATIVE); URINE PROTEIN 1+ (NEGATIVE); URINE UROBILINOGEN NEGATIVE mg/dL (0.2-1.0)
[2018-11-22 04:56] LABS: EPI CELLS MODERATE /HPF (FEW); URINE BACTERIA MANY /hpf (NONE SEEN); URINE HYALINE CAST 3 /lpf; URINE MUCUS FEW
[2018-11-22 05:19] LABS: CO2 27 mmol/L (21-32); CREATININE 0.9 mg/dL (0.55-1.3)
[2018-11-22 05:20] LABS: ALBUMIN 3.2 g/dl (3.4-5.0)
[2018-11-22 06:20] LABS: ALK PHOS 99 U/L (45-117); ANION GAP 7 MMOL/L (8-16); BILIRUBIN,TOTAL 0.1 mg/dL (0.2-1); BLOOD UREA NITROGEN 10 mg/dL (7-18); CALCIUM 8.5 mg/dL (8.5-10.1); CHLORIDE 103 mmol/L (98-107); GLUCOSE,RANDOM 105 mg/dL (74-106); POTASSIUM 3.5 mmol/L (3.5-5.1); SGOT/AST 19 U/L (15-37); SGPT/ALT 27 U/L (13-61); SODIUM 136 mmol/L (136-145); TOT PROT 6.8 g/dl (6.4-8.2)
--- NOTE | 2018-11-22 10:48 | EKG ---
Test Reason : Blood Pressure : / mmHG Vent. Rate : 093 BPM Atrial Rate : 093 BPM P-R Int : 144 ms QRS Dur : 084 ms QT Int : 378 ms P-R-T Axes : 033 -18 041 degrees QTc Int : 469 ms NORMAL SINUS RHYTHM MINIMAL VOLTAGE CRITERIA FOR LVH, MAY BE NORMAL VARIANT BORDERLINE ECG Confirmed by Kishan Ang MD ([id number]) on 11/22/2018 10:47:26 AM Referred By: DR NAPOLES Confirmed By:Kishan Ang MD
[2018-11-23 03:04] LABS: INR 1.04 (0.83-1.09); PROTHROMBIN TIME (PATIENT) 12.3 SEC (9.7-13.0)
== END 2018-11-22 05:15 | disposition home or self-care (01) ==
LOC: FER 03:08
DX: R07.9 Chest pain, unspecified (principal); Z98.84 Bariatric surgery status; I10 Essential (primary) hypertension; M79.7 Fibromyalgia; J45.909 Unspecified asthma, uncomplicated
CPT/HCPCS: 36415; 80053; 81003; 81015; 82550; 84484; 84703; 85025; 85610; 87086; 87186; 93005; 99282-25

== ENCOUNTER 2018-11-22 19:44 | Emergency (ER) | payer BC ==
[2018-11-22 19:56] VITALS: BP 153/100; PULSE 108; TEMP 98; BMI 30.8
--- NOTE | 2018-11-22 20:22 | PDOC ---
History of Present Illness - General History Source: Patient Exam Limitations: No Limitations - History of Present Illness Initial Comments: 11/22/18 20:36 The patient is a 43 year old female with a significant past medical history of HTN, asthma, depression, osteoporosis, fibromyalgia, GERD, 2 weeks s/p laparoscopic gastric bypass surgery at [facility](Dr Peterson) who present to the ED with 2 days of chest pain and bilateral LE pain, associated with SOB and dizziness. The patient was in the ED last night for evaluation of her chest pain , however the patient eloped and came back tonight. The patient reports her pain is worsened with walking and other strenuous activity. Patient notes she has pain in calves and anterior thighs, that is worsened with movement, Right> Left. The patient notes she took Oxycodone for pain with mild relief. The patient reports she saw Dr. Peterson last and everything was normal. She is on stool softeners with her oxycodone, which has led to loose stools. Denies fever, chills, palpitation, weakness, N, V, D, abdominal pain, bladder and bowel problems, leg swelling, No sick contacts or travel. No new changes in medications. Allergies: shellfish derived, and bupropion HCl. Social history: Lives with family. Current tobacco use. Occasional alcohol use. Surgical history: VERTICAL SLEEVE GASTRECTOMY (2011), ABDOMINOPLASTY/AND REVISION, LIPO X2. Orthopedic Surgery (RIGHT KNEE, SHOULDER SX, WRIST SX) ROS Constitutional: no fevers or chills. HEENT: (+) dizziness. No headache. No congestion. No visual/hearing disturbances. CVS: no cp or syncope. Resp: (+) sob. No cough. Gastrointestinal: no abdominal pain, nausea or vomiting. No diarrhea or constipation. Genitourinary: no urinary sx, hematuria. MUSCULOSKELETAL:(+) chronic back pain. (+) chest pain and bilateral LE pain SKIN: no redness or skin changes, no discharge, no rash. No wounds. Hematologic: no easy bruising/bleeding. NEUROLOGIC: No weakness, numbness or tingling. All other systems reviewed and negative, or as documented in HPI. PE: General: Well appearing, awake and alert, NAD. HEENT: NCAT, PERRL, EOMI, clear conjunctiva, anicteric, moist mucous membranes , clear oropharynx, no oral lesions.. Neck: neck supple, FROM Resp: CTAB, normal and even respirations, no respiratory distress CVS: RRR, no murmurs, 2+ peripheral pulses throughout, no peripheral edema Abdomen: soft, NTND, no peritoneal signs. +obese abdomen, surgical scars present. Back:(+) chronic back pain. nontender, normal inspection and ROM MSK: no edema, [place] x4, ROM intact. No clubbing or cyanosis. normal bulk and tone. Extremities:(+) Right calf tenderness. No swelling. Neuro: alert, oriented appropriately; no focal neurologic deficits Skin: warm and well perfused, cap refill <2 sec, normal color <Yancy Gomez - Last Filed: 11/22/18 20:36> - General History Source: Patient Exam Limitations: No Limitations <LeelaSybilkaila Cano - Last Filed: 11/22/18 22:43> - General Chief Complaint: Pain, Acute Stated Complaint: CHEST PAIN X 3 DAYS Time Seen by Provider: 11/22/18 19:57 Past History <Yancy Gomez - Last Filed: 11/22/18 20:36> - Past Medical History Anemia: Yes Asthma: Yes (USES INHALER,PROAIR, was unable to refill inhaler) Cancer: No Cardiac Disorders: No CVA: No COPD: No CHF: No Dementia: No Diabetes: No GI Disorders: Yes (GERD) Disorders: No HTN: Yes Hypercholesterolemia: No Liver Disease: No Psychiatric Problems: Yes (DEPRESSION) Seizures: No Thyroid Disease: No - Surgical History Abdominal Surgery: Yes (VERTICAL SLEEVE GASTRECTOMY 2011, ABDOMINOPLASTY/AND REVISION, LIPO X2,) Appendectomy: No Cardiac Surgery: No Cholecystectomy: No GI Surgery: Yes (GASTRIC BYPASS 2 WEEKS AGO) Lung Surgery: No Neurologic Surgery: No Orthopedic Surgery: Yes (RIGHT KNEE, SHOULDER SX, WRIST SX) - Suicide/Smoking/Psychosocial Hx Smoking Status: No Smoking History: Current every day smoker Years of Tobacco Use: 24 Have you smoked in the past 12 months: Yes Number of Cigarettes Smoked Daily: 6 If you are a former smoker, when did you quit?: 10/14/18 Information on smoking cessation initiated: Yes 'Breaking Loose' booklet given: 07/05/18 Hx Alcohol Use: No Drug/Substance Use Hx: No Substance Use Type: None Hx Substance Use Treatment: No <Sybil Swenson - Last Filed: 11/22/18 22:43> - Past Medical History Allergies/Adverse Reactions: Allergies Allergy/AdvReac Type Severity Reaction Status Date / Time shellfish derived Allergy Intermediate Hives Verified 11/22/18 19:46 bupropion HCl Allergy Rash Verified 11/22/18 19:46 [From Wellbutrin] Home Medications: Ambulatory Orders Albuterol Sulfate [Proair Respiclick] 90 mcg IH PRN PRN 05/10/17 Zolpidem Tartrate [Ambien] 12.5 mg PO HS 06/04/17 Sertraline HCl [Zoloft -] 100 mg PO DAILY 06/11/17 cloNIDine HCL [Catapres -] 0.1 mg PO BID 06/11/17 Clonazepam [Klonopin] 1 mg PO BID 07/20/17 Gabapentin 500 mg PO DAILY 04/13/18 Amlodipine Besylate [Norvasc -] 10 mg PO DAILY 09/23/18 Budesonide/Formeterol Fumarate [SYMBICORT 160/4.5mcg -] 1 inh PO DAILY 10/28/18 Etanercept [Enbrel] 50 mg SQ WEEKLY 10/28/18 Iron 1 tab PO DAILY 10/28/18 Nebulizer [Airs Disposable Nebulizer] 1 each MC DAILY 10/28/18 Leflunomide 20 mg PO DAILY 11/03/18 Albuterol Sulfate Inhaler - [Ventolin HFA Inhaler -] 1 - 2 inh PO QID PRN Omeprazole 40 mg PO DAILY 11/04/18 Oxycodone HCl/Acetaminophen [Percocet 10-325 mg Tablet] 1 each PO QID #20 tablet MDD 4 11/07/18 *Physical Exam - Vital Signs Last Vital Signs Temp Pulse Resp BP Pulse Ox 98 F 108 H 16 153/100 99 11/22/18 19:52 11/22/18 19:52 11/22/18 19:52 11/22/18 19:52 11/22/18 19:52 <Yancy Gomez - Last Filed: 11/22/18 20:36> - Vital Signs Last Vital Signs Temp Pulse Resp BP Pulse Ox 98 F 108 H 16 153/100 99 11/22/18 19:52 11/22/18 19:52 11/22/18 19:52 11/22/18 19:52 11/22/18 19:52 <Sybil Swenson - Last Filed: 11/22/18 22:43> Moderate Sedation - Procedure Monitoring Vital Signs: Procedure Monitoring Vital Signs Temperature 98 F 11/22/18 19:52 Pulse Rate 108 H 11/22/18 19:52 Respiratory Rate 16 11/22/18 19:52 Blood Pressure 153/100 11/22/18 19:52 O2 Sat by Pulse Oximetry (%) 99 11/22/18 19:52 <Davin Gomezaaronreena - Last Filed: 11/22/18 20:36> - Procedure Monitoring Vital Signs: Procedure Monitoring Vital Signs Temperature 98 F 11/22/18 19:52 Pulse Rate 108 H 11/22/18 19:52 Respiratory Rate 16 11/22/18 19:52 Blood Pressure 153/100 11/22/18 19:52 O2 Sat by Pulse Oximetry (%) 99 11/22/18 19:52 <Sybil Swenson - Last Filed: 11/22/18 22:43> Heart Score/ECG Review - ECG Impressions Normal ECG: Yes Comment:: 11/22/18 20:22 EKG normal sinus rhythm at 94 bpm, no interval abnormalities, narrow QRS, ST and T wave segments and morphology normal. Nonspecific T wave abnormalities <Sybil Swenson - Last Filed: 11/22/18 22:43> ED Treatment Course - RADIOLOGY Radiology Studies Ordered: Category Date Time Status CHEST CTA [CT] Stat CT Scan 11/22/18 20:01 Ordered <Sybil Swenson - Last Filed: 11/22/18 22:43> Medical Decision Making - Medical Decision Making 11/22/18 20:21 I, Sybil Swenson MD, attest that this document has been prepared under my direction and personally reviewed by me in its entirety. I further attest, that it accurately reflects all work, treatment, procedures and medical decision -making performed by me. See HPI for details Vital signs reviewed, wnl. mild tachycardia, improving in 90s Prior notes reviewed, including admissions, discharges and consultations. laboratory results and imaging reviewed from 11/22/18, basic labs and lytes wnl, notable for normal Cr/GFR. Neg preg test. Coags normal. Cardiac panel_neg trop today (prior neg earlier this morning) EKG normal sinus rhythm at 94 bpm, no interval abnormalities, narrow QRS, ST and T wave segments and morphology normal. Nonspecific T wave abnormalities ED course no acute events, comfortable. no distress DDx PE, ACS, costochondritis, GERD, PUD, gastritis, infection. CTA to r/o PE - given recent procedure [address] results: hiatal hernia, some fluid present that could be post gastric bypass , vs gastroparesis vs gastric outlet. emphysema changes, no PE pt has been tolerating PO, eating dinner comfortably. diet related modifications advised, takes PPI at home. given dose of pepcid and maalox here. smoking cessation advised. Pt informed of my clinical impression, treatment recommendations and disposition plan. All questions answered to patient's satisfaction and expressed understanding and comfort with this. Reasons for returning to the ED sooner discussed with the patient otherwise, follow up with primary care physician. At the time of discharge, the patient is alert, clinically improved, tolerating po and verbalizes understanding of instructions. Patient does not suffer from an acute life-threatening medical condition at this time she is safe for outpatient follow-up. 11/22/18 20:22 11/22/18 21:29 11/22/18 22:38 <Sybil Swenson - Last Filed: 11/22/18 22:43> *DC/Admit/Observation/Transfer - Attestations Scribe Attestion: 11/22/18 20:36 Documentation prepared by Yancy Gomez, acting as emergency medical service manager for Sybil Swenson MD, <Yancy Gomez - Last Filed: 11/22/18 20:36> - Discharge Dispostion Decision to Admit order: No <Sybil Swenson - Last Filed: 11/22/18 22:43> Diagnosis at time of Disposition: Leg pain, bilateral, Hiatal hernia Chest pain Qualifiers: Chest pain type: unspecified Qualified Code(s): R07.9 - Chest pain, unspecified - Discharge Dispostion Disposition: HOME Condition at time of disposition: Stable - Referrals Referrals: Jesús Peterson MD [Staff Physician] - [facility] [place] [Provider Group] [facility] [Provider Group] - Patient Instructions Printed Discharge Instructions: DI for Chest Pain, DI for Hiatal Hernia, DI for Leg Pain Additional Instructions: you were evaluated in the ED for your chest pain your ekg and lab work were reviewed and within normal limits your CT chest did not reveal a blood clot. you have a hiatal hernia and post gastric sleeve surgery. you should continue your omeprazole and watch what you eat, stay hydrated, avoid triggers for reflux symptoms as that can precipitate your pains. follow up with primary doctor and your gastric bypass surgeon Dr Peterson for your post operative followup. If you have any worsening of symptoms or any other concerns please return to the ED immediately. Return if worsening symptoms including fevers, headache, vomiting, visual or hearing disturbances, abdominal pain, chest pain, shortness of breath, syncope, dehydration, inability to take things by mouth/vomiting, altered mental status, or worsening concerning symptoms.
[2018-11-22] MEDS ORDERED: MAG HYDROX/AL HYDROX/SIMETH 30 ML UNIT-DOSE CUP PO ONE (22:36)
[2018-11-22] MEDS ORDERED: FAMOTIDINE 20 MG/50 ML IVPB 20 MG/50 ML MG IVPB ONE ×2 (22:36→22:38)
[2018-11-22] MEDS ORDERED: MAG HYDROX/AL HYDROX/SIMETH 30 ML UNIT-DOSE CUP ONE (22:38)
--- NOTE | 2018-11-23 10:46 | EKG ---
Test Reason : Blood Pressure : / mmHG Vent. Rate : 094 BPM Atrial Rate : 094 BPM P-R Int : 142 ms QRS Dur : 082 ms QT Int : 378 ms P-R-T Axes : 019 -19 033 degrees QTc Int : 472 ms NORMAL SINUS RHYTHM NORMAL ECG WHEN COMPARED WITH ECG OF 22-NOV-2018 03:27, NO SIGNIFICANT CHANGE WAS FOUND Confirmed by PETER ANDRADE MD ([id number]) on 11/23/2018 10:46:30 AM Referred By: DR EASLEY Confirmed By:PETER ANDRADE MD
== END 2018-11-22 23:01 | disposition home or self-care (01) ==
LOC: FER 19:44
PROC: 3E033GC Introduction of Other Therapeutic Substance into Peripheral Vein, Percutaneous Approach (ICD-10-PCS; principal; 2018-11-22)
DX: R07.9 Chest pain, unspecified (principal); K44.9 Diaphragmatic hernia without obstruction or gangrene
CPT/HCPCS: 36415; 71275-TC; 84484; 93005; 99282-25

== ENCOUNTER 2019-01-20 19:54 | Emergency (ER) | payer BC ==
[2019-01-20] MEDS ORDERED: ACETAMINOPHEN 500 MG TABLET (FP) ONE (20:25)
[2019-01-20 20:31] VITALS: BP 111/71; TEMP 98.9; BMI 33.0
[2019-01-20] MEDS ORDERED: MAG HYDROX/AL HYDROX/SIMETH 30 ML UNIT-DOSE CUP PO ONE (20:47)
[2019-01-20] MEDS ORDERED: MAG HYDROX/AL HYDROX/SIMETH 30 ML UNIT-DOSE CUP ONE ×2 (20:49→23:33)
[2019-01-20 20:59] VITALS: PULSE 115
[2019-01-20] MEDS ORDERED: ALBUTEROL SO4 2.5/IPRATROPIUM 0.5 INH SOL 3 ML VIAL.NEB. NEB ONE ×2 (21:03→21:06)
[2019-01-20] MEDS ORDERED: ACETAMINOPHEN 500 MG TABLET (FP) PO ONE (21:09)
[2019-01-20] MEDS ORDERED: SODIUM CHLORIDE 1,000 ML IV STA (21:44)
[2019-01-20] MEDS ORDERED: MAG HYDROX/AL HYDROX/SIMETH -MYLANTA- ORAL SUSPENSION PO ONE (23:32)
[2019-01-21] MEDS ORDERED: AZITHROMYCIN 500 MG TABLET PO ONE (00:02)
[2019-01-21] MEDS ORDERED: AZITHROMYCIN 500 MG TABLET ONE (00:02)
--- NOTE | 2019-01-21 06:38 | PDOC ---
Documentation entered by Brianna Bolanos SCRIBE, acting as scribe for Jacqueline Turner MD. Jacqueline Turner MD: This documentation has been prepared by the Luis Miguel amin Lincy, SCRIBE, under my direction and personally reviewed by me in its entirety. I confirm that the documentation accurately reflects all work, treatment, procedures, and medical decision making performed by me. History of Present Illness - General Chief Complaint: Cold Symptoms Stated Complaint: sore throat,cough,flu like sx Time Seen by Provider: 01/20/19 19:59 History Source: Patient Exam Limitations: No Limitations - History of Present Illness Initial Comments: 01/20/19 21:06 The patient is a 44-year-old female with a past medical history significant for HTN, asthma, depression, osteoporosis, fibromyalgia, GERD, RA (on Embrel), s/p laparoscopic gastric bypass surgery at [facility] (October 2018) presents to the emergency department with cold symptoms. The patient presents with 2 days of cold symptoms of productive cough with white sputum production, sore throat, nausea with an episode of nonbloody, nonbilious emesis. The patient reports she took her albuterol inhaler for the cough, without relief, states she had also tried some antibiotic, Robitussin and Nyquil. The patient reports associated symptoms of lightheadedness with standing and decreased PO intake. Denies fever , chills, DUQUE, diarrhea, urinary symptoms. Allergies: shellfish derived, and bupropion HCl. Social history: Lives with family. Current tobacco use. Occasional alcohol use. Surgical history: VERTICAL SLEEVE GASTRECTOMY (2011), ABDOMINOPLASTY/AND REVISION, LIPO X2. Orthopedic Surgery (RIGHT KNEE, SHOULDER SX, WRIST SX) Past History - Past Medical History Allergies/Adverse Reactions: Allergies Allergy/AdvReac Type Severity Reaction Status Date / Time shellfish derived Allergy Intermediate Hives Verified 01/20/19 19:55 bupropion HCl Allergy Rash Verified 01/20/19 19:55 [From Wellbutrin] Home Medications: Ambulatory Orders Albuterol Sulfate [Proair Respiclick] 90 mcg IH PRN PRN 05/10/17 Zolpidem Tartrate [Ambien] 12.5 mg PO HS 06/04/17 Sertraline HCl [Zoloft -] 100 mg PO DAILY 06/11/17 cloNIDine HCL [Catapres -] 0.1 mg PO BID 06/11/17 Clonazepam [Klonopin] 1 mg PO BID 07/20/17 Gabapentin 500 mg PO DAILY 04/13/18 Amlodipine Besylate [Norvasc -] 10 mg PO DAILY 09/23/18 Budesonide/Formeterol Fumarate [SYMBICORT 160/4.5mcg -] 1 inh PO DAILY 10/28/18 Etanercept [Enbrel] 50 mg SQ WEEKLY 10/28/18 Iron 1 tab PO DAILY 10/28/18 Nebulizer [Airs Disposable Nebulizer] 1 each MC DAILY 10/28/18 Leflunomide 20 mg PO DAILY 11/03/18 Albuterol Sulfate Inhaler - [Ventolin HFA Inhaler -] 1 - 2 inh PO QID PRN Omeprazole 40 mg PO DAILY 11/04/18 Oxycodone HCl/Acetaminophen [Percocet 10-325 mg Tablet] 1 each PO QID #20 tablet MDD 4 11/07/18 Fluconazole [Diflucan] 150 mg PO DAILY #2 tablet 11/25/18 Azithromycin [Zithromax 250mg Tablets -] 250 mg PO DAILY #4 tablet 01/21/19 Ondansetron [Zofran Odt -] 4 mg SL BID PRN #6 od.tablet 01/21/19 Anemia: Yes Asthma: Yes (USES INHALER,PROAIR, was unable to refill inhaler) Cancer: No Cardiac Disorders: No CVA: No COPD: No CHF: No Dementia: No Diabetes: No GI Disorders: Yes (GERD) Disorders: No HTN: Yes Hypercholesterolemia: No Liver Disease: No Psychiatric Problems: Yes (DEPRESSION) Seizures: No Thyroid Disease: No - Surgical History Abdominal Surgery: Yes (VERTICAL SLEEVE GASTRECTOMY 2012, ABDOMINOPLASTY/AND REVISION, LIPO X2,) Appendectomy: No Cardiac Surgery: No Cholecystectomy: No GI Surgery: Yes (GASTRIC BYPASS 2 WEEKS AGO) Lung Surgery: No Neurologic Surgery: No Orthopedic Surgery: Yes (RIGHT KNEE, SHOULDER SX, WRIST SX) - Suicide/Smoking/Psychosocial Hx Smoking Status: No Smoking History: Current every day smoker Years of Tobacco Use: 24 Have you smoked in the past 12 months: Yes Number of Cigarettes Smoked Daily: 6 If you are a former smoker, when did you quit?: 10/14/18 'Breaking Loose' booklet given: 11/22/18 Hx Alcohol Use: No Drug/Substance Use Hx: No Substance Use Type: None Hx Substance Use Treatment: No Review of Systems - Review of Systems Able to Perform ROS?: Yes Comments:: 01/20/19 21:03 GENERAL/CONSTITUTIONAL: No fever or chills. No weakness. HEAD, EYES, EARS, NOSE AND THROAT: +sore throat. No change in vision. No ear pain or discharge. GASTROINTESTINAL: +nausea and vomiting. No diarrhea or constipation. GENITOURINARY: No dysuria, frequency, or change in urination. CARDIOVASCULAR: No chest pain or shortness of breath. RESPIRATORY: +cough. No wheezing, or hemoptysis. MUSCULOSKELETAL: No joint or muscle swelling or pain. No neck or back pain. SKIN: No rash NEUROLOGIC: No headache, vertigo, loss of consciousness, or change in strength/ sensation. ENDOCRINE: No increased thirst. No abnormal weight change. HEMATOLOGIC/LYMPHATIC: No anemia, easy bleeding, or history of blood clots. ALLERGIC/IMMUNOLOGIC: No hives or skin allergy. *Physical Exam - Vital Signs Last Vital Signs Temp Pulse Resp BP Pulse Ox 98.9 F 115 H 18 111/71 98 01/20/19 19:55 01/20/19 20:58 01/20/19 20:58 01/20/19 19:55 01/20/19 20:58 - Physical Exam Comments: 01/20/19 21:14 Constitutional: Awake, alert, oriented. No acute distress. Head: Normocephalic. Atraumatic Eyes: PERRL. EOMI. Conjunctivae are not pale. ENT: Mucous membranes are dry, oropharynx diffusely erythematous, no edema or masses. Uvula midline. Neck: Supple. Full ROM. No lymphadenopathy. Cardiovascular: Regular rate. Regular rhythm. S1, S2 regular. Distal pulses are 2+ and symmetric. Pulmonary/Chest: +lungs expiratory wheezing, both bases and right mid-lung field. Expiratory rhonchi bilaterally that cleared with coughing. Abdominal: Soft and nondistended. There is no tenderness. No rebound, guarding or rigidity. No organomegaly. No palpable masses. Good bowel sounds. Back: No CVA tenderness. Musculoskeletal: No edema. No cyanosis. No clubbing. Full range of motion in all extremities. No calf tenderness. Radial/pedal pulses are intact and 2+ bilaterally Skin: Skin is warm and dry. No petechiae. No purpura. Neurological: Alert and oriented to person, place, and time. Cranial nerves II -XII are grossly intact. Normal speech. Strength is grossly symmetric. No sensory deficits. Psychiatric: Good eye contact. Normal interaction, affect and behavior. ED Treatment Course - RADIOLOGY Radiology Studies Ordered: Category Date Time Status CHEST PA & LAT [RAD] Stat Radiology 01/20/19 21:08 Taken - Medications Given in the ED: ED Medications Discontinued Medications Generic Name Dose Route Start Last Admin Trade Name Freq PRN Reason Stop Dose Admin Acetaminophen 1,000 mg 01/20/19 21:09 01/20/19 20:50 Tylenol - PO 01/20/19 21:10 1,000 mg ONCE ONE Administration Al Hydroxide/Mg Hydroxide 30 ml 01/20/19 20:47 01/20/19 20:49 Mylanta Oral Suspension - PO 01/20/19 20:48 30 ml ONCE ONE Administration Al Hydroxide/Mg Hydroxide 30 ml 01/20/19 23:32 01/20/19 23:34 Mylanta Suspension - PO 01/20/19 23:33 30 ml ONCE ONE Administration Albuterol/Ipratropium 1 amp 01/20/19 21:03 01/20/19 21:08 Duoneb - NEB 01/20/19 21:04 1 amp ONCE ONE Administration Sodium Chloride 1,000 mls @ 1,000 mls/hr 01/20/19 21:44 01/20/19 22:49 Normal Saline - IV 01/20/19 22:43 1,000 mls/hr ASDIR STA Administration Medical Decision Making - Medical Decision Making As noted above, this 44-year-old woman with multiple medical problems, including asthma/hypertension/rheumatoid arthritis presents with productive cough, sore throat and nausea for the last several days. Exam notable for bilateral expiratory wheezing and pharyngeal erythema. Patient received DuoNeb nebulizer treatment. Although she has no known contacts with strep throat and does not recall having strep throat as an adult, she [place] recently [place] during which she was exposed to a large amount of people. Therefore, quick strep sent. Also the patient had a chest x-ray to evaluate for pneumonia. Quick strep negative. Throat culture pending. Chest x-ray revealed no evidence of infiltrates/effusions or other acute abnormality. It is unchanged from previous chest x-ray taken approximately 2 months ago. Patient has poor venous access; laboratory evaluation was unobtainable. The patient did receive approximately two thirds of a liter of IV saline through a small venous catheter. Patient felt significantly better after nebulizer treatment and IV hydration. Since patient has a history of chronic respiratory issues and is currently smoking , she was started on azithromycin (Z-Rasta) with first dose of 500 mg given here in the emergency room. The remainder of the 5 day course (250 mg daily for 4 days) sent to her pharmacy. Since nausea was a significant part of the patient's discomfort and the reason that she was unable to keep up her oral hydration, small (#6) amount of Zofran ODT 4 mg prescribed (up to twice a day as needed). She should also make sure that she takes her Nexium daily as prescribed *DC/Admit/Observation/Transfer Diagnosis at time of Disposition: Sore throat Bronchitis, acute Qualifiers: Bronchitis organism: unspecified organism Qualified Code(s): J20.9 - Acute bronchitis, unspecified - Discharge Dispostion Disposition: HOME Condition at time of disposition: Improved - Prescriptions Prescriptions: Azithromycin [Zithromax 250mg Tablets -] 250 mg PO DAILY #4 tablet Ondansetron [Zofran Odt -] 4 mg SL BID PRN #6 od.tablet PRN Reason: Nausea - Referrals - Patient Instructions Printed Discharge Instructions: DI for Acute Bronchitis Additional Instructions: Rest; drink plenty of water Azithromycin 250 mg daily with next dose tomorrow Make sure you take Nexium tonight; also take other medications as prescribed Zofran ODT 4 mg up to twice a day as needed for nausea Return to ER if you have persistent vomiting, shortness of breath, high fever - Post Discharge Activity
--- NOTE | 2019-01-23 15:17 | PDOC ---
*Physical Exam - Vital Signs Last Vital Signs Temp Pulse Resp BP Pulse Ox 98.9 F 115 H 18 111/71 98 01/20/19 19:55 01/20/19 20:58 01/20/19 20:58 01/20/19 19:55 01/20/19 20:58 ED Treatment Course - ADDITIONAL ORDERS Additional order review: 01/20/19 21:26 Throat Culture - Final Throat NO BETA HEMOLYTIC STREPTOCOCCI ISOLATED - Medications Given in the ED: ED Medications Discontinued Medications Generic Name Dose Route Start Last Admin Trade Name Santa PRN Reason Stop Dose Admin Acetaminophen 1,000 mg 01/20/19 21:09 01/20/19 20:50 Tylenol - PO 01/20/19 21:10 1,000 mg ONCE ONE Administration Al Hydroxide/Mg Hydroxide 30 ml 01/20/19 20:47 01/20/19 20:49 Mylanta Oral Suspension - PO 01/20/19 20:48 30 ml ONCE ONE Administration Al Hydroxide/Mg Hydroxide 30 ml 01/20/19 23:32 01/20/19 23:34 Mylanta Suspension - PO 01/20/19 23:33 30 ml ONCE ONE Administration Albuterol/Ipratropium 1 amp 01/20/19 21:03 01/20/19 21:08 Duoneb - NEB 01/20/19 21:04 1 amp ONCE ONE Administration Azithromycin 500 mg 01/21/19 00:02 01/21/19 00:05 Zithromax PO 01/21/19 00:03 500 mg ONCE ONE Administration Sodium Chloride 1,000 mls @ 1,000 mls/hr 01/20/19 21:44 01/20/19 22:49 Normal Saline - IV 01/20/19 22:43 1,000 mls/hr ASDIR STA Administration Medical Decision Making - Medical Decision Making 01/23/19 15:16 Received a phone call from the patient. Pt was recently here two days ago. She filled out her azithromycin but lost the bottle. She requested if I could refill them. She also notes that she gets a yeast infection everytime she's on antibiotics and requests diflucan. I had prescribed azithromycin and diflucan for her and sent it to her pharmacy. *DC/Admit/Observation/Transfer Diagnosis at time of Disposition: Sore throat Bronchitis, acute Qualifiers: Bronchitis organism: unspecified organism Qualified Code(s): J20.9 - Acute bronchitis, unspecified - Discharge Dispostion Disposition: HOME Condition at time of disposition: Improved - Prescriptions Prescriptions: Azithromycin 250 mg PO DAILY #4 tablet Azithromycin [Zithromax 250mg Tablets -] 250 mg PO DAILY #4 tablet Fluconazole [Diflucan] 150 mg PO ONCE PRN #1 tablet PRN Reason: Yeast Infection Ondansetron [Zofran Odt -] 4 mg SL BID PRN #6 od.tablet PRN Reason: Nausea - Referrals - Patient Instructions Printed Discharge Instructions: DI for Acute Bronchitis Additional Instructions: Rest; drink plenty of water Azithromycin 250 mg daily with next dose tomorrow Make sure you take Nexium tonight; also take other medications as prescribed Zofran ODT 4 mg up to twice a day as needed for nausea Return to ER if you have persistent vomiting, shortness of breath, high fever - Post Discharge Activity
== END 2019-01-21 00:15 | disposition home or self-care (01) ==
LOC: FER 19:54
PROC: 3E0F7GC Introduction of Other Therapeutic Substance into Respiratory Tract, Via Natural or Artificial Opening (ICD-10-PCS; principal; 2019-01-20)
PROC: 3E0337Z Introduction of Electrolytic and Water Balance Substance into Peripheral Vein, Percutaneous Approach (ICD-10-PCS; 2019-01-20)
DX: J20.9 Acute bronchitis, unspecified (principal); J02.9 Acute pharyngitis, unspecified; I10 Essential (primary) hypertension; M06.9 Rheumatoid arthritis, unspecified; J45.909 Unspecified asthma, uncomplicated
CPT/HCPCS: 71046-TC-FY; 87070; 87880; 99282-25; J7030

== ENCOUNTER 2019-02-10 12:19 | Inpatient (IN) | payer BC ==
[2019-02-10] MEDS ORDERED: FAMOTIDINE 20 MG/50 ML IVPB 20 MG/50 ML MG IVPB ONE ×2 (13:48→15:07)
[2019-02-10] MEDS ORDERED: morphine CARPU-JECT 4 MG/1 ML DISP.SYRIN IVPUSH ONE ×2 (13:48→21:21)
[2019-02-10] MEDS ORDERED: SODIUM CHLORIDE 1,000 ML IV STA (13:48)
[2019-02-10] MEDS ORDERED: MORPHINE SULFATE 8 MG/ML VIAL ONE (13:55)
[2019-02-10] MEDS ORDERED: PANTOPRAZOLE SODIUM 40 MG VIAL IVPUSH ONE (15:10)
[2019-02-10] MEDS ORDERED: MAG HYDROX/AL HYDROX/SIMETH 30 ML UNIT-DOSE CUP PO ONE (15:10)
[2019-02-10] MEDS ORDERED: MAG HYDROX/AL HYDROX/SIMETH 30 ML UNIT-DOSE CUP ONE (15:18)
[2019-02-10] MEDS ORDERED: ACETAMINOPHEN 1000 MG/100 ML VIAL (NON FORMULARY) IVPB ONE ×2 (16:25→21:34)
--- NOTE | 2019-02-10 16:56 | PDOC ---
Documentation entered by Jesusita Pryor SCRIBE, acting as scribe for Mary Acosta MD. Mary Acosta MD: This documentation has been prepared by the Konstantin amin Nirvannie, SCRIBE, under my direction and personally reviewed by me in its entirety. I confirm that the documentation accurately reflects all work, treatment, procedures, and medical decision making performed by me. History of Present Illness - General Chief Complaint: Pain Stated Complaint: ABDOMINAL PAIN Time Seen by Provider: 02/10/19 13:44 History Source: Patient Exam Limitations: No Limitations - History of Present Illness Initial Comments: 02/10/19 14:08 The patient is a 44 year old female, with a significant past medical history of HTN, asthma, depression, osteoporosis, fibromyalgia, GERD, 3 months s/p laparoscopic gastric bypass surgery at [facility](Dr Peterson), who presents to the emergency department with, 2 days of worsening diffuse abdominal pain. She describes her pain as the need to defecate and rated 10/10. Patient endorses losing 40+lbs since surgery and had 2 BM today. She denies recent fevers, chills, headache or dizziness. She denies recent nausea or vomit. She denies recent dysuria, frequency, urgency or hematuria. She denies recent chest pain or shortness of breath. Allergies: shellfish derived, and bupropion HCl. Past surgical history: Gastric bypass, vertical sleeve, abdominoplasty, orthopedic surgery (right knee, shoulder, wrist). Social history: Current tobacco use. Occasional alcohol use. Surgeon: Dr. Peterson Past History - Past Medical History Allergies/Adverse Reactions: Allergies Allergy/AdvReac Type Severity Reaction Status Date / Time shellfish derived Allergy Intermediate Hives Verified 02/10/19 13:19 bupropion HCl Allergy Rash Verified 02/10/19 13:19 [From Wellbutrin] Home Medications: Ambulatory Orders Albuterol Sulfate [Proair Respiclick] 90 mcg IH PRN PRN 05/10/17 Zolpidem Tartrate [Ambien] 12.5 mg PO HS 06/04/17 cloNIDine HCL [Catapres -] 0.1 mg PO BID 06/11/17 Clonazepam [Klonopin] 1 mg PO BID 10/24/17 Amlodipine Besylate [Norvasc -] 10 mg PO DAILY 09/23/18 Budesonide/Formeterol Fumarate [SYMBICORT 160/4.5mcg -] 1 inh PO DAILY 10/28/18 Etanercept [Enbrel] 50 mg SQ WEEKLY 10/28/18 Iron 1 tab PO DAILY 10/28/18 Oxycodone HCl/Acetaminophen [Percocet 10-325 mg Tablet] 1 each PO QID #20 tablet MDD 4 11/07/18 Fluconazole [Diflucan] 150 mg PO DAILY #2 tablet 11/25/18 Anemia: Yes Asthma: Yes (USES INHALER,PROAIR, was unable to refill inhaler) Cancer: No Cardiac Disorders: No CVA: No COPD: No CHF: No Dementia: No Diabetes: No GI Disorders: Yes (GERD) Disorders: No HTN: Yes Hypercholesterolemia: No Liver Disease: No Psychiatric Problems: Yes (DEPRESSION) Seizures: No Thyroid Disease: No - Surgical History Abdominal Surgery: Yes (VERTICAL SLEEVE GASTRECTOMY 2012, ABDOMINOPLASTY/AND REVISION, LIPO X2,) Appendectomy: No Cardiac Surgery: No Cholecystectomy: No GI Surgery: Yes (GASTRIC BYPASS 2 WEEKS AGO) Lung Surgery: No Neurologic Surgery: No Orthopedic Surgery: Yes (RIGHT KNEE, SHOULDER SX, WRIST SX) - Suicide/Smoking/Psychosocial Hx Smoking Status: No Smoking History: Never smoked Years of Tobacco Use: 24 Have you smoked in the past 12 months: No Number of Cigarettes Smoked Daily: 6 If you are a former smoker, when did you quit?: 10/14/18 Information on smoking cessation initiated: No 'Breaking Loose' booklet given: 11/22/18 Hx Alcohol Use: No Drug/Substance Use Hx: No Substance Use Type: None Hx Substance Use Treatment: No Review of Systems - Review of Systems Able to Perform ROS?: Yes Comments:: 02/10/19 14:09 GENERAL/CONSTITUTIONAL: No fever or chills. No weakness. HEAD, EYES, EARS, NOSE AND THROAT: No change in vision. No ear pain or discharge. No sore throat. CARDIOVASCULAR: No chest pain or shortness of breath. RESPIRATORY: No cough, wheezing, or hemoptysis. GASTROINTESTINAL: +Abdominal pain. No nausea, vomiting, diarrhea or constipation. GENITOURINARY: No dysuria, frequency, or change in urination. MUSCULOSKELETAL: No joint or muscle swelling or pain. No neck or back pain. SKIN: No rash NEUROLOGIC: No headache, vertigo, loss of consciousness, or change in strength/ sensation. ENDOCRINE: No increased thirst. No abnormal weight change. HEMATOLOGIC/LYMPHATIC: No anemia, easy bleeding, or history of blood clots. ALLERGIC/IMMUNOLOGIC: No hives or skin allergy. *Physical Exam - Vital Signs Last Vital Signs Temp Pulse Resp BP Pulse Ox 98.3 F 93 H 16 139/92 100 02/10/19 12:19 02/10/19 12:19 02/10/19 12:19 02/10/19 12:02/10/19 12:19 - Physical Exam Comments: 02/10/19 13:49 GENERAL: Awake, alert, and fully oriented, appears in obvious pain HEAD: No signs of trauma EYES: PERRLA, EOMI, sclera anicteric, conjunctiva clear ENT: Auricles normal inspection, hearing grossly normal, nares patent, oropharynx clear without exudates. Dry mucosa NECK: Normal ROM, supple, no lymphadenopathy, JVD, or masses LUNGS: Breath sounds equal, clear to auscultation bilaterally. No wheezes, and no crackles HEART: Regular rate and rhythm, normal S1 and S2, no murmurs, rubs or gallops ABDOMEN: Soft, diffusely tender, normoactive bowel sounds. No guarding, no rebound. No masses EXTREMITIES: Normal range of motion, no edema. No clubbing or cyanosis. No cords, erythema, or tenderness NEUROLOGICAL: Cranial nerves II through XII grossly intact. Normal speech, motor and sensation intact. SKIN: Warm, Dry, normal turgor, no rashes or lesions noted. ED Treatment Course - LABORATORY CBC & Chemistry Diagram: 02/10/19 16:10 02/10/19 16:10 Medical Decision Making - Medical Decision Making 02/10/19 14:16 Pt in obvious discomfort, history of gastric bypass. Labs pending, will obtain CT a/p. 02/10/19 14:41 Called to bedside by nurses, difficult IV access. I placed 22G to L hand, but unable to draw blood. Will call microbiological laboratory technician. 02/10/19 16:41 Pt signed out to Dr. Arellano, pending labs, then CT a/p and will discuss with Dr. Peterson. *DC/Admit/Observation/Transfer Diagnosis at time of Disposition: Abdominal pain - Discharge Dispostion Condition at time of disposition: Stable - Referrals - Patient Instructions - Post Discharge Activity
[2019-02-10 17:00] LABS: BASO % 0.7 % (0-2.0); EOS % 0.3 % (0-4.5); HEMATOCRIT 36.4 % (32.4-45.2); HEMOGLOBIN 11.8 GM/dL (10.7-15.3); LYMPH % 28.1 % (8-40); MCHC 32.5 g/dl (32.0-36.0); MEAN CELL VOLUME 95.5 fl (80-96); MEAN PLT VOLUME 9.5 fl (7.5-11.1); MONO % 9.6 % (3.8-10.2); NEUT % 61.3 % (42.8-82.8); PLATELET COUNT 255 K/MM3 (134-434); RBC 3.81 M/mm3 (3.60-5.2); RDW 15.4 % (11.6-15.6); WHITE BLOOD COUNT 6.5 K/mm3 (4.0-10.0)
[2019-02-10] MEDS ORDERED: ACETAMINOPHEN INJECTION 100 ML IVPB ONE ×2 (17:05→22:34)
[2019-02-10 17:28] LABS: EPI CELLS 1.3 /HPF (0-5/HPF); URINE APPEARANCE CLEAR; URINE BACTERIA 2.2 /hpf (NEGATIVE); URINE BILIRUBIN NEGATIVE (NEGATIVE); URINE CASTS 2 /lpf (0-8); URINE COLOR YELLOW; URINE GLUCOSE (UA) NEGATIVE (NEGATIVE); URINE KETONE 1+ (NEGATIVE); URINE LEUK ESTERASE TRACE (NEGATIVE); URINE NITRITE NEGATIVE (NEGATIVE); URINE PROTEIN NEGATIVE (NEGATIVE); URINE RBC 1 /hpf (0-4); URINE WBC 1 /hpf (0-5)
[2019-02-10 17:29] LABS: INR 0.97 (0.83-1.09); PROTHROMBIN TIME (PATIENT) 11.4 SEC (9.7-13.0)
[2019-02-10 17:34] LABS: BILIRUBIN,TOTAL 0.4 mg/dL (0.2-1); CALCIUM 8.8 mg/dL (8.5-10.1); CREATININE 0.5 mg/dL (0.55-1.3); POTASSIUM 3.4 mmol/L (3.5-5.1); TOT PROT 6.5 g/dl (6.4-8.2)
[2019-02-10] MEDS ORDERED: morphine SULFATE 4 MG/ML VIAL ONE (21:25)
[2019-02-10] MEDS ORDERED: KETOROLAC TROMETHAMINE 15 MG/ML VIAL IVPUSH ONE (22:53)
[2019-02-10] MEDS ORDERED: MAGNESIUM CITRATE 300 ML BOTTLE PO ONE (22:53)
[2019-02-10] MEDS ORDERED: KETOROLAC TROMETHAMINE 15 MG/ML VIAL ONE (23:02)
[2019-02-10] MEDS ORDERED: MAGNESIUM CITRATE 300 ML BOTTLE ONE (23:02)
--- NOTE | 2019-02-10 23:04 | PDOC ---
*Physical Exam - Vital Signs Last Vital Signs Temp Pulse Resp BP Pulse Ox 97.5 F L 83 18 141/98 99 02/10/19 19:21 02/10/19 19:21 02/10/19 19:21 02/10/19 19:21 02/10/19 19:21 ED Treatment Course - LABORATORY CBC & Chemistry Diagram: 02/10/19 16:10 02/10/19 16:10 - ADDITIONAL ORDERS Additional order review: Laboratory Results 02/10/19 02/10/19 02/10/19 16:10 16:10 16:10 PT with INR INR Sodium 135 L Potassium 3.4 L Chloride 102 Carbon Dioxide 25 Anion Gap 7 L BUN 8 Creatinine 0.5 L Est GFR (CKD-EPI)AfAm 137.39 Est GFR (CKD-EPI)NonAf 118.54 Random Glucose 90 Calcium 8.8 Total Bilirubin 0.4 AST 20 ALT 17 Alkaline Phosphatase 93 Total Protein 6.5 Albumin 3.0 L Lipase 196 Serum , Qual Negative Urine Color Urine Appearance Urine pH Ur Specific [place] Urine Protein Urine Glucose (UA) Urine Ketones Urine Blood Urine Nitrite Urine Bilirubin Urine Urobilinogen Ur Leukocyte Esterase Urine WBC (Auto) Urine RBC (Auto) Urine Casts (Auto) U Epithel Cells (Auto) Urine Bacteria (Auto) Blood Type A POSITIVE Antibody Screen Negative 02/10/19 02/10/19 16:10 14:37 PT with INR 11.40 INR 0.97 Sodium Potassium Chloride Carbon Dioxide Anion Gap BUN Creatinine Est GFR (CKD-EPI)AfAm Est GFR (CKD-EPI)NonAf Random Glucose Calcium Total Bilirubin AST ALT Alkaline Phosphatase Total Protein Albumin Lipase Serum , Qual Urine Color Yellow Urine Appearance Clear Urine pH 7.0 D Ur Specific [place] 1.018 Urine Protein Negative Urine Glucose (UA) Negative Urine Ketones 1+ H Urine Blood Negative Urine Nitrite Negative Urine Bilirubin Negative Urine Urobilinogen 1.0 Ur Leukocyte Esterase Trace Urine WBC (Auto) 1 Urine RBC (Auto) 1 Urine Casts (Auto) 2 U Epithel Cells (Auto) 1.3 Urine Bacteria (Auto) 2.2 Blood Type Antibody Screen 02/10/19 16:10 RBC 3.81 MCV 95.5 MCHC 32.5 RDW 15.4 MPV 9.5 Neutrophils % 61.3 D Lymphocytes % 28.1 D Monocytes % 9.6 Eosinophils % 0.3 D Basophils % 0.7 - RADIOLOGY Radiology Studies Ordered: Category Date Time Status ABDOMEN & PELVIS CT WITH CONTR [CT] Stat CT Scan 02/10/19 18:42 Completed - Medications Given in the ED: ED Medications Discontinued Medications Generic Name Dose Route Start Last Admin Trade Name Santa PRN Reason Stop Dose Admin Acetaminophen 1,000 mg 02/10/19 16:25 02/10/19 17:09 Ofirmev Injection - IVPB 02/10/19 16:26 1,000 mg ONCE ONE Administration Acetaminophen 1,000 mg 02/10/19 21:34 02/10/19 22:54 Ofirmev Injection - IVPB 02/10/19 21:35 1,000 mg ONCE ONE Administration Al Hydroxide/Mg Hydroxide 30 ml 02/10/19 15:10 02/10/19 15:20 Mylanta Oral Suspension - PO 02/10/19 15:11 30 ml ONCE ONE Administration Famotidine/Sodium Chloride 20 mg in 50 mls @ 100 mls/hr 02/10/19 13:48 15:14 Pepcid 20 Mg Premixed Ivpb - IVPB 02/10/19 14:17 Not Given ONCE ONE Sodium Chloride 1,000 mls @ 1,000 mls/hr 02/10/19 13:48 02/10/19 15:04 Normal Saline - IV 02/10/19 14:47 1,000 mls/hr ASDIR STA Administration Morphine Sulfate 6 mg 02/10/19 13:48 02/10/19 15:14 Morphine Injection - IVPUSH 02/10/19 13:49 6 mg ONCE ONE Administration Morphine Sulfate 4 mg 02/10/19 21:21 02/10/19 21:34 Morphine Injection - IVPUSH 02/10/19 21:22 4 mg ONCE ONE Administration Pantoprazole Sodium 40 mg 02/10/19 15:10 02/10/19 15:14 Protonix Iv IVPUSH 02/10/19 15:11 Not Given ONCE ONE Medical Decision Making - Medical Decision Making 02/10/19 17:[address] Acosta Briefly, hx gastric bypass presents with diffuse abd pain Exam with diffuse ttp Labs pending, CTAP/UA pending 02/10/19 19:01 Labs wnl, preg neg UA clear PO contrast started now by RN 02/10/19 23:02 CTAP with no acute findings +small b/l ovarian cysts and fibroid x1 +moderate constipation Pt has persistent pain, despite multiple rounds of pain meds Case discussed with Dr. Peterson, recommends NPO. Will admit pt to observation Will dose toradol now that CT has no surgical pathology as well as Mg Citrate for fecal retention on CT Case discussed with Dr. Rg, pt accepted for admission to observation Case discussed in detail with admitting physician including history, physical exam and ancillary studies. Admitting physician has assumed care for the patient, will follow all pending diagnostics and will complete the evaluation and treatment. *DC/Admit/Observation/Transfer Diagnosis at time of Disposition: Abdominal pain - Discharge Dispostion Condition at time of disposition: Stable Decision to Admit order Date/Time: Decision to Admit Order Category Date Time Status Decision to Admit to Hospital Routine Admission 02/10/19 22:24 Active - Referrals Referrals: Zane Mckoy MD [Primary Care Provider] - - Patient Instructions - Post Discharge Activity - Attestations Physician Attestion: 02/10/19 23:04 I, Dr. Ang Arellano MD, attest that this document has been prepared under my direction and personally reviewed by me in its entirety. I further attest, that it accurately reflects all work, treatment, procedures and medical decision -making performed by me.
--- NOTE | 2019-02-10 23:32 | HP ---
CHIEF COMPLAINT: intractable abdominal pain PCP:Dr. Mckoy HISTORY OF PRESENT ILLNESS: 44 y/o female with PMH of asthma, HTN, fibromyalgia, multiple abdominal surgeries, GERD, presented to the ED with intractable abdominal pain. Patient sates that the pain started yesterday while she was at work and it was only a mild "ache" and she elt that she had to move her bowels however nothing happened , but she did not think to take anything for the pain. Today she woke up and the pain was a 10/10 so she had her son go and get her an enema from which she had 2 small bowel movements from, the pain was so severe that she had to come in. She denies having any nausea/vomiting/fevers or chills- of note, her most recent abdominal surgery was [address] Peterson and she had no complications- or has she had any with any of her surgeries. she deneis any sick contacts or recent travel. Of note patient frequently takes oxycodone for pain and has not taken any in about one week ER course was notable for: (1)vitals and labs wnl (2) patient given morphine, tylenol, toradol, mag citrate (3) ab/pelvis CT showed hiatal hernia, small b/l ovarian cysts, one fibroid and moderate stool Recent Travel: denies PAST MEDICAL HISTORY: see above PAST SURGICAL HISTORY: 5 abdominal surgeries; ortho surgery (wrist, shoulder, both knees) Social History: Smoking:everyday smoker (1ppd for over 20 years) Alcohol:drinsk 2 shots of rum a few nights a week before bed Drugs: denies Family History: father passed from [place] mother: DM , HTN Allergies shellfish derived Allergy (Intermediate, Verified 02/10/19 13:19) Hives bupropion HCl [From Wellbutrin] Allergy (Verified 02/10/19 13:19) Rash HOME MEDICATIONS: Home Medications Medication Instructions Recorded Albuterol Sulfate [Proair 90 mcg IH PRN PRN 05/10/17 Respiclick] Zolpidem Tartrate [Ambien] 12.5 mg PO HS 06/04/17 cloNIDine HCL [Catapres -] 0.1 mg PO BID 06/11/17 Clonazepam [Klonopin] 1 mg PO BID 07/20/17 Amlodipine Besylate [Norvasc -] 10 mg PO DAILY 09/23/18 Budesonide/Formeterol Fumarate 1 inh PO DAILY 10/28/18 [SYMBICORT 160/4.5mcg -] Etanercept [Enbrel] 50 mg SQ WEEKLY 10/28/18 Iron 1 tab PO DAILY 10/28/18 Oxycodone HCl/Acetaminophen 1 each PO QID #20 tablet MDD 4 11/07/18 [Percocet 10-325 mg Tablet] Fluconazole [Diflucan] 150 mg PO DAILY #2 tablet 11/25/18 REVIEW OF SYSTEMS CONSTITUTIONAL: Absent: fever, chills, diaphoresis, generalized weakness, malaise, loss of appetite, weight change HEENT: Absent: rhinorrhea, nasal congestion, throat pain, throat swelling, difficulty swallowing, mouth swelling, ear pain, eye pain, visual changes CARDIOVASCULAR: Absent: chest pain, syncope, palpitations, irregular heart rate, lightheadedness , peripheral edema RESPIRATORY: Absent: cough, shortness of breath, dyspnea with exertion, orthopnea, wheezing, stridor, hemoptysis GASTROINTESTINAL: Present: abdominal pain, constipation, distention Absent: , nausea, vomiting, diarrhea, , melena, hematochezia GENITOURINARY: Absent: dysuria, frequency, urgency, hesitancy, hematuria, flank pain, genital pain MUSCULOSKELETAL: Absent: myalgia, arthralgia, joint swelling, back pain, neck pain SKIN: Absent: rash, itching, pallor HEMATOLOGIC/IMMUNOLOGIC: Absent: easy bleeding, easy bruising, lymphadenopathy, frequent infections ENDOCRINE: Absent: unexplained weight gain, unexplained weight loss, heat intolerance, cold intolerance NEUROLOGIC: Absent: headache, focal weakness or paresthesias, dizziness, unsteady gait, seizure, mental status changes, bladder or bowel incontinence PSYCHIATRIC: Absent: anxiety, depression, suicidal or homicidal ideation, hallucinations. PHYSICAL EXAMINATION Vital Signs - 24 hr 02/10/19 02/10/19 02/10/19 12:19 18:45 19:21 Temperature 98.3 F 97.5 F L Pulse Rate 93 H Pulse Rate [ 83 83 Right] Respiratory 16 18 Rate Blood Pressure 139/92 Blood Pressure 154/100 141/98 [Right Arm] O2 Sat by Pulse 100 99 Oximetry (%) GENERAL: Awake, alert, pacing, in slight acute distress. EYES: PEERLA: EOMI no scleral icterus NECK: no JVD: no lymphadenopathy LUNGS: CTA B;L; no rales, rhonchi or wheezing HEART: Regular rate and rhythm, normal S1 and S2 without murmur, rub or gallop. ABDOMEN: Soft, diffuse tenderness upon palption; +BS in all 4 quadrants; no rebound or guarding MUSCULOSKELETAL: Normal range of motion at all joints. No bony deformities or tenderness. No CVA tenderness. EXTREMITIES: warm; well-perfused, no clubbing/cyanosis or edema NEUROLOGICAL: Cranial nerves II-XII intact. Normal speech. Normal gait. PSYCHIATRIC: Cooperative. Good eye contact. Appropriate mood and affect. SKIN: Warm, dry, normal turgor, no rashes or lesions noted, normal capillary refill. Laboratory Results - last 24 hr 02/10/19 02/10/19 02/10/19 14:37 16:10 16:10 WBC 6.5 RBC 3.81 Hgb 11.8 Hct 36.4 MCV 95.5 MCH 31.0 MCHC 32.5 RDW 15.4 Plt Count 255 MPV 9.5 Absolute Neuts (auto) 4.0 Neutrophils % 61.3 D Lymphocytes % 28.1 D Monocytes % 9.6 Eosinophils % 0.3 D Basophils % 0.7 Nucleated RBC % 0 PT with INR 11.40 INR 0.97 Sodium Potassium Chloride Carbon Dioxide Anion Gap BUN Creatinine Est GFR (CKD-EPI)AfAm Est GFR (CKD-EPI)NonAf Random Glucose Calcium Total Bilirubin AST ALT Alkaline Phosphatase Total Protein Albumin Lipase Serum , Qual Urine Color Yellow Urine Appearance Clear Urine pH 7.0 D Ur Specific Boaz 1.018 Urine Protein Negative Urine Glucose (UA) Negative Urine Ketones 1+ H Urine Blood Negative Urine Nitrite Negative Urine Bilirubin Negative Urine Urobilinogen 1.0 Ur Leukocyte Esterase Trace Urine WBC (Auto) 1 Urine RBC (Auto) 1 Urine Casts (Auto) 2 U Epithel Cells (Auto) 1.3 Urine Bacteria (Auto) 2.2 Blood Type Antibody Screen 02/10/19 02/10/19 02/10/19 16:10 16:10 16:10 WBC RBC Hgb Hct MCV MCH MCHC RDW Plt Count MPV Absolute Neuts (auto) Neutrophils % Lymphocytes % Monocytes % Eosinophils % Basophils % Nucleated RBC % PT with INR INR Sodium 135 L Potassium 3.4 L Chloride 102 Carbon Dioxide 25 Anion Gap 7 L BUN 8 Creatinine 0.5 L Est GFR (CKD-EPI)AfAm 137.39 Est GFR (CKD-EPI)NonAf 118.54 Random Glucose 90 Calcium 8.8 Total Bilirubin 0.4 AST 20 ALT 17 Alkaline Phosphatase 93 Total Protein 6.5 Albumin 3.0 L Lipase 196 Serum , Qual Negative Urine Color Urine Appearance Urine pH Ur Specific Boaz Urine Protein Urine Glucose (UA) Urine Ketones Urine Blood Urine Nitrite Urine Bilirubin Urine Urobilinogen Ur Leukocyte Esterase Urine WBC (Auto) Urine RBC (Auto) Urine Casts (Auto) U Epithel Cells (Auto) Urine Bacteria (Auto) Blood Type A POSITIVE Antibody Screen Negative ASSESSMENT/PLAN: 44 y/o female with PMH of HTN, asthma, GERD, RA, fibromyalgia, multiple abdominal surgeries, presents to the ED with a one day history of difuse abdominal pain #Intractable abdominal pain likely 2/2 to constipation verses opioid withdrawal -patient already received tylneol/morphine/toradol -will give patient mag citrate for constipation -if no relief of pain will giv more morphine -Dr. Peterson already called from ED -CT showed no surgical pathology; b/l ovarian cysts with fibroid and moderate amount of stool -NPO #HLD will need to med rec patient as pharmacy was closed #Asthma c/w home meds F/E/N not on fluids monitor electrolytes NPO DVT PPX: lovenox dispo: med-surg obs Problem List - Problem (1) Abdominal pain Code(s): R10.9 - UNSPECIFIED ABDOMINAL PAIN (2) Asthma Code(s): J45.909 - UNSPECIFIED ASTHMA, UNCOMPLICATED (3) GERD (gastroesophageal reflux disease) Code(s): K21.9 - GASTRO-ESOPHAGEAL REFLUX DISEASE WITHOUT ESOPHAGITIS (4) HTN (hypertension) Code(s): I10 - ESSENTIAL (PRIMARY) HYPERTENSION Visit type - Emergency Visit Emergency Visit: Yes ED Registration Date: 02/10/19 Care time: The patient presented to the Emergency Department on the above date and was hospitalized for further evaluation of their emergent condition. - New Patient This patient is new to me today: Yes Date on this admission: 02/10/19 - Critical Care Critical Care patient: No
--- NOTE | 2019-02-10 23:33 | PN ---
Teaching Attending Note Name of Resident: Ching Peralta ATTENDING PHYSICIAN STATEMENT I saw and evaluated the patient. I reviewed the resident's note and discussed the case with the resident. I agree with the resident's findings and plan as documented. SUBJECTIVE: OBJECTIVE: aaox3 mild distress lungs CTA good air entry tender abdomen positive hyperactive bowel sounds no linnea perral s1 and s2 rrr ASSESSMENT AND PLAN: this is 44 y/o female with PMH of HTN, asthma, GERD, RA, fibromyalgia, multiple abdominal and orthopedic surgeries, presents to the ED with a one day history of difuse abdominal pain #Intractable abdominal pain likely 2/2 to constipation verses opioid withdrawal -patient already received tylneol/morphine/toradol -will give patient mag citrate for constipation -if no relief of pain will giv more morphine -Dr. Peterson already called from ED -CT showed no surgical pathology; b/l ovarian cysts with fibroid and moderate amount of stool -NPO #HLD will need to med rec patient as pharmacy was closed #Asthma c/w home meds
[2019-02-10] MEDS ORDERED: MORPHINE SULFATE 2 MG/ML VIAL IVPUSH ONE (23:43)
[2019-02-11] MEDS ORDERED: amLODIPine BESYLATE 10 MG TABLET (FP) PO ONE ×2 (00:24→11:04)
[2019-02-11] MEDS ORDERED: MAG HYDROX/AL HYDROX/SIMETH -MYLANTA- ORAL SUSPENSION PO ONE (00:30)
[2019-02-11] MEDS ORDERED: MAG HYDROX/AL HYDROX/SIMETH 30 ML UNIT-DOSE CUP ONE (00:30)
[2019-02-11] MEDS ORDERED: amLODIPine BESYLATE 5 MG TABLET (FP) ONE (00:30)
[2019-02-11 01:26] VITALS: BMI 28.4
[2019-02-11] MEDS: SERTRALINE HCL 50 MG TABLET (FP) PO SCH ×2 (05:17→10:12)
[2019-02-11] MEDS: MAG HYDROX/AL HYDROX/SIMETH 30 ML UNIT-DOSE CUP PO SCH ×3 (05:22→21:42)
[2019-02-11] MEDS ORDERED: MORPHINE SULFATE 2 MG/ML VIAL IVPUSH PRN (06:59)
[2019-02-11] MEDS ORDERED: DEXTROSE 5%-NORMAL SALINE 1,000 ML IV SCH (07:00)
[2019-02-11 08:00] LABS: BASO % 0.9 % (0-2.0); EOS % 2.6 % (0-4.5); HEMATOCRIT 36.4 % (32.4-45.2); LYMPH % 34.8 % (8-40); MCH 31.5 pg (25.7-33.7); MCHC 33.1 g/dl (32.0-36.0); MEAN CELL VOLUME 95.2 fl (80-96); MONO % 14.2 % (3.8-10.2); NEUT % 47.5 % (42.8-82.8); PLATELET COUNT 290 K/MM3 (134-434); RBC 3.82 M/mm3 (3.60-5.2); RDW 15.4 % (11.6-15.6); WHITE BLOOD COUNT 5.3 K/mm3 (4.0-10.0)
[2019-02-11 08:36] LABS: ALBUMIN 3.1 g/dl (3.4-5.0); BILIRUBIN,TOTAL 0.5 mg/dL (0.2-1); CALCIUM 8.7 mg/dL (8.5-10.1); CREATININE 0.6 mg/dL (0.55-1.3); MAGNESIUM 1.9 mg/dL (1.8-2.4); PHOSPHOROUS 2.7 mg/dL (2.5-4.9); POTASSIUM 3.2 mmol/L (3.5-5.1)
[2019-02-11] MEDS ORDERED: ENOXAPARIN NA (PORCINE) 40 MG/0.4 ML DISP.SYRIN SQ SCH (10:00)
--- NOTE | 2019-02-11 10:39 | CONSULT ---
Consult - text type - Consultation Consultation Note: Asked to see this 44 y.o. female pt well known to me. The patient arrived to ER 02/10/2019 c/o 24 hour history of severe abdominal pain. Pt states had difficulty moving her bowels recently, but pain increased on 02/10/2019. Pt is 3 months S/P Gastric Bypass and previously underwent SLeeve Gastrectomy. Pt with normal V/S, although BP high at times (140-150/90-100). Pt on multiple meds for BP control, so unsure if recent spike is secondary to pain she is currently experiencing. Labs performed in ER were mostly WNL, except for a slightly low K+ level of 3.4. CT scan reported as bilateral ovarian cysts, fibroid of uterus, small hiatal hernia, mildly distended distal gastric remnant. Pt was given pain meds in ER with moderate relief. On 02/11/2019 pt slightly improved. Pt walking the halls, has had 3 bowel movements with improvement of lower abdominal pain. Pt still c/o epigastric pain which is severe when IV pain medication wears off. Pt denies N/V. P/E- Gen- pt awake, alert, moving in moderate distress from epigastric pain Abd- all trocar sites well-healed non-distended, +tympany on percussion in epigastrium soft, tender on palpation and on tympany in RUQ and LUQ WBC-5.3 H/H-12/36.4 K+-3.[address] scan findings with DR Baig in radiology department. I explained that pt had previous Gastric Sleeve prior to Gastric Bypass.That would suggest that remnant stomach would be smaller and could not distend nearly as much as normal. With that fact, CT suggests that pt may have an obstruction of the biliary limb with closed loop obstruction of the distal stomach remnant. I explained these findings to the patient and I suggest that exploratory surgery be performed and relief of probable biliary limb obstruction. Pt understands and agrees.
--- NOTE | 2019-02-11 10:51 | PN ---
Progress Note, Physician - Current Medication List Current Medications: Active Medications Al Hydroxide/Mg Hydroxide (Mylanta Oral Suspension -) 30 ml PO TID [facility] Last Admin: 02/11/19 05:22 Dose: 30 ml Dextrose/Sodium Chloride (D5-Ns -) 1,000 mls @ 75 mls/hr IV ASDIR JEAN MARIE Last Admin: 02/11/19 07:07 Dose: 75 mls/hr Famotidine/Sodium Chloride (Pepcid 20 Mg Premixed Ivpb -) 20 mg in 50 mls @ 100 mls/hr IVPB BID JEAN MARIE Potassium Chloride (Potassium Chloride 10 Meq Premix Ivpb -) 10 meq in 100 mls @ 100 mls/hr IVPB Q60M [facility] Stop: 02/11/19 12:29 Morphine Sulfate (Morphine Sulfate) 2 mg IVPUSH Q4H PRN PRN Reason: PAIN LEVEL 6-10 Last Admin: 02/11/19 07:07 Dose: 2 mg Sertraline HCl (Zoloft -) 100 mg PO DAILY [facility] Last Admin: 02/11/19 10:12 Dose: Not Given - Objective Vital Signs: Vital Signs Temperature 98.5 F 02/11/19 04:00 Pulse Rate 110 H 02/11/19 04:00 Respiratory Rate 16 02/11/19 06:09 Blood Pressure 139/88 02/11/19 04:00 O2 Sat by Pulse Oximetry (%) 100 02/11/19 06:09 Labs: CBC, BMP 02/11/19 07:15 02/11/19 07:15 INR, PTT INR 0.97 (0.83-1.09) 02/10/19 16:10 Problem List - Problems (1) Abdominal pain Assessment/Plan: likely 2/2 to obstruction -d/w Dr. Peterson -pt to the OR -CT showed gastric distention b/l ovarian cysts with fibroid -NPO Code(s): R10.9 - UNSPECIFIED ABDOMINAL PAIN (2) Asthma Assessment/Plan: stable Code(s): J45.909 - UNSPECIFIED ASTHMA, UNCOMPLICATED (3) HTN (hypertension) Assessment/Plan: pt npo will need ivp meds amlodipine 10 mgX1 Code(s): I10 - ESSENTIAL (PRIMARY) HYPERTENSION
[2019-02-11] MEDS ORDERED: ROCURONIUM BROMIDE 50 MG/5 ML VIAL ONE ×2 (11:24→11:51)
[2019-02-11] MEDS ORDERED: fentaNYL CITRATE 250 MCG/5 ML VIAL ONE (11:24)
[2019-02-11] MEDS ORDERED: PROPOFOL 20 ML ONE (11:24)
[2019-02-11] MEDS ORDERED: MIDAZOLAM HCL 2 MG/2 ML SINGLE DOSE VIAL ONE ×2 (11:25→13:00)
[2019-02-11] MEDS ORDERED: SUCCINYLCHOLINE CHLORIDE 200 MG/10 ML VIAL ONE (11:26)
[2019-02-11] MEDS ORDERED: ALBUTEROL SO4 8 GM HFA INHALER IH ONE (11:51)
[2019-02-11] MEDS ORDERED: ceFAZolin SODIUM 1 GM VIAL IVPB ONE (12:15)
[2019-02-11] MEDS ORDERED: ceFAZolin SODIUM 1 GM VIAL ONE (12:15)
[2019-02-11] MEDS ORDERED: ePHEDrine SULFATE 50 MG/1 ML AMPULE ONE (12:16)
[2019-02-11] MEDS ORDERED: HYDROmorphone HCl 2 MG/ML VIAL ONE (12:30)
[2019-02-11] MEDS ORDERED: PHENYLEPHRINE HCL 10 MG/1 ML SINGLE DOSE VIAL ONE (12:34)
[2019-02-11] MEDS ORDERED: BUPIVACAINE HCL/PF (5 MG/ML) 30 ML VIAL IJ ONE ×2 (12:46→13:58)
[2019-02-11] MEDS ORDERED: BUPIVACAINE HCL/PF 0.5% (5MG/ML) 10 ML VIAL ONE (13:09)
[2019-02-11] MEDS ORDERED: GLYCOPYRROLATE 0.2 MG/1 ML VIAL ONE (13:17)
[2019-02-11] MEDS ORDERED: NEOSTIGMINE METHYLSULFATE 0.5 MG/ML - 10 ML MDV ONE (13:17)
[2019-02-11] MEDS ORDERED: KCL 10 MEQ IVPB 10 MEQ/100 ML INFUS.BAG IVPB SCH (14:00)
[2019-02-11] MEDS ORDERED: DEXAMETHASONE SOD PHOSPHATE 4 MG/1 ML VIAL ONE (14:01)
[2019-02-11] MEDS ORDERED: ONDANSETRON 4 MG/2 ML VIAL IVPUSH PRN ×2 (14:22→14:55)
[2019-02-11] MEDS ORDERED: clonazePAM 0.5 MG TABLET PO ONE ×2 (14:26→14:55)
[2019-02-11] MEDS ORDERED: ALBUTEROL SO4 8 GM HFA INHALER IH PRN ×2 (14:27→14:55)
[2019-02-11] MEDS ORDERED: LACTATED RINGERS SOLUTION 1,000 ML IV SCH ×2 (14:30→14:55)
[2019-02-11] MEDS ORDERED: SODIUM CHLORIDE 1,000 ML IV SCH (14:30)
[2019-02-11] MEDS ORDERED: HYDROmorphone *PCA* 10MG/50ML DISP.SYRIN PCA SCH ×2 (14:30→14:55)
--- NOTE | 2019-02-11 14:34 | OP ---
Operative Note - Note: Operative Date: 02/11/19 Pre-Operative Diagnosis: Intestinal obstruction of biliary limb. Epigastric abdominal Pain Operation: Reduction of internal abdominal hernia. Repair of internal abdominal hernia. Aspiration of Pelvic Fluid. 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 This defect was closed with endostitich device. Post-Operative Diagnosis: Same as Pre-op (Internal abdominal hernia secondary to Pererson's defect; Fluid in Pelvis) Surgeon: Jesús Peterson Designer And Patternmaker: Rob Allen Anesthesia: General Specimens Removed: pelvic fluid sent for culture Estimated Blood Loss (mls): 30 Operative Report Dictated: Yes
[2019-02-11] MEDS ORDERED: HYDROmorphone *PCA* 10MG/50ML DISP.SYRIN PCA ONE (15:03)
[2019-02-11 15:13] LABS: HEMATOCRIT 32.8 % (32.4-45.2); HEMOGLOBIN 10.6 GM/dL (10.7-15.3); MCH 31.4 pg (25.7-33.7); MCHC 32.3 g/dl (32.0-36.0); MEAN CELL VOLUME 97.3 fl (80-96); MEAN PLT VOLUME 8.3 fl (7.5-11.1); PLATELET COUNT 216 K/MM3 (134-434); RBC 3.37 M/mm3 (3.60-5.2); RDW 15.4 % (11.6-15.6); WHITE BLOOD COUNT 4.1 K/mm3 (4.0-10.0)
[2019-02-11 15:29] LABS: ALBUMIN 2.3 g/dl (3.4-5.0); BILIRUBIN,TOTAL 0.2 mg/dL (0.2-1); CALCIUM 7.4 mg/dL (8.5-10.1); CREATININE 0.4 mg/dL (0.55-1.3); POTASSIUM 3.3 mmol/L (3.5-5.1); TOT PROT 5.3 g/dl (6.4-8.2)
[2019-02-11] MEDS: SODIUM CHLORIDE 1,000 ML IV SCH ×2 (15:45→23:58)
--- NOTE | 2019-02-11 16:36 | OP ---
DATE OF OPERATION: 02/11/2019 PREOPERATIVE DIAGNOSES: 1. Intestinal obstruction. 2. Epigastric abdominal pain. POSTOPERATIVE DIAGNOSES: 1. Intestinal obstruction. 2. Epigastric abdominal pain. 3. Fluid in the pelvis. 4. Internal abdominal hernia. PROCEDURES PERFORMED: 1. Reduction of internal abdominal hernia. 2. Repair of internal hernia defect. 3. Aspiration of pelvic fluid. 4. Diagnostic laparoscopy. OPERATING SURGEON: Jesús Peterson MD SAP BW BI DEVELOPER: Rob Allen MD ANESTHESIA: General. OPERATIVE PROCEDURE: The patient was brought to the operating room and placed on the OR table in the supine position. All precautions were taken initially, including padding to the back and the feet, and Venodyne boots were placed on both lower extremities. At that point, the abdomen was prepped and draped in the usual manner. A Veress needle was placed in the left upper quadrant and a pneumoperitoneum was established. A number-5 bladeless trocar was then placed through the same port just below the umbilicus in the midline. Through that trocar, a laparoscopic camera was placed. Under direct vision, a number-5 bladeless trocar was placed in the right upper quadrant in the previously placed port from previous surgery and a number-12 bladeless trocar in the right lower quadrant also in previously placed port. This was followed by a number-5 bladeless trocar in the left upper quadrant in the previous site. At that point, the assistant professor of chemistry surgeon and the operating surgeon lifted the mesocolon up and they were able to expose the intestines going toward the ligament of Treitz. There was a lot of intestine in this area and it was reduced. As the intestine was reduced, there were noted to be intestines that were significantly swollen, significant for a point of obstruction. The intestine continued to be reduced toward the pelvis area, until the ligament of Treitz was found. The ligament of Treitz appeared to be unobstructed, but this was followed through the biliary limb to the jejunojejunal anastomosis. This was found and here was the site that was obstructed. The gastric limb or alimentary limb was then followed superiorly to its site to the mesocolon. It appeared that the mesocolon around the gastric limb or alimentary limb was intact; no sign for hernia there. However, it was noted that the intestines were going between the mesentery of the alimentary limb and the mesocolon, significant for the Horner defect which was causing an internal hernia and causing the obstruction of the biliary limb causing a dilated distal stomach. At that point, with the assistant professor of chemistry surgeon lifting the mesocolon superiorly, the operating surgeon was able to place 2 sutures in interrupted fashion between the mesentery of the small bowel and the mesocolon. Once these were tied, the Horner defects were now completely closed. Further diagnostic laparoscopy showed that there was fluid in the pelvis which appeared to be purulent or murky. The suction was attached to a trap and then this fluid was then brought from the suction in the trap and sent off the field to Pathology or the lab for culture and sensitivity and microbiological testing. At that point, the number-12 trocar sites were then closed with endo-closure device to prevent internal hernia and prevent bleeding. Under direct vision, all trocars were removed and pneumoperitoneum was released. All trocar sites then received 0.25% Marcaine, were closed with 4-0 Biosyn in a subcuticular fashion. Dressings were applied. Patient awoken from anesthesia and transferred out of the operating room to the recovery room in stable condition. EXPECTED BLOOD LOSS: 30 mL. Patient transferred to recovery room in stable condition. Heron [id number]
[2019-02-11] MEDS ORDERED: ACETAMINOPHEN 325 MG TABLET (FP) PO PRN (16:57)
[2019-02-11] MEDS: KCL 10 MEQ IVPB 10 MEQ/100 ML INFUS.BAG IVPB SCH ×2 (17:34→18:34)
[2019-02-11] MEDS: cloNIDine HCL 0.1 MG TABLET PO SCH (21:42)
[2019-02-11] MEDS: FAMOTIDINE 20 MG/50 ML IVPB 20 MG/50 ML MG IVPB SCH (21:43)
[2019-02-11] MEDS: clonazePAM 0.5 MG TABLET PO SCH (21:43)
[2019-02-11] MEDS ORDERED: cloNIDine HCL 0.1 MG TABLET PO SCH (22:00)
[2019-02-11] MEDS ORDERED: FAMOTIDINE 20 MG/50 ML IVPB 20 MG/50 ML MG IVPB SCH ×2 (22:00)
[2019-02-11] MEDS ORDERED: ZOLPIDEM TARTRATE 5 MG TABLET PO ONE (23:45)
[2019-02-11] MEDS ORDERED: HYDROmorphone HCl 2 MG/ML VIAL IVPB ONE (23:45)
[2019-02-12] MEDS: MAG HYDROX/AL HYDROX/SIMETH 30 ML UNIT-DOSE CUP PO SCH ×3 (05:39→22:29)
[2019-02-12] MEDS: HYDROmorphone *PCA* 10MG/50ML DISP.SYRIN PCA SCH ×2 (07:03→20:01)
[2019-02-12 07:23] LABS: HEMATOCRIT 33.3 % (32.4-45.2); HEMOGLOBIN 10.8 GM/dL (10.7-15.3); MCH 31.5 pg (25.7-33.7); MCHC 32.2 g/dl (32.0-36.0); MEAN CELL VOLUME 97.8 fl (80-96); MEAN PLT VOLUME 9.4 fl (7.5-11.1); PLATELET COUNT 246 K/MM3 (134-434); RBC 3.41 M/mm3 (3.60-5.2); RDW 15.6 % (11.6-15.6); WHITE BLOOD COUNT 7.8 K/mm3 (4.0-10.0)
[2019-02-12 07:33] LABS: ALBUMIN 2.7 g/dl (3.4-5.0); BILIRUBIN,TOTAL 0.3 mg/dL (0.2-1); CALCIUM 7.8 mg/dL (8.5-10.1); CREATININE 0.6 mg/dL (0.55-1.3); POTASSIUM 4.2 mmol/L (3.5-5.1); TOT PROT 6.1 g/dl (6.4-8.2)
[2019-02-12] MEDS: SODIUM CHLORIDE 1,000 ML IV SCH ×2 (08:44→16:44)
[2019-02-12] MEDS: clonazePAM 0.5 MG TABLET PO SCH ×2 (09:22→22:29)
[2019-02-12] MEDS: FAMOTIDINE 20 MG/50 ML IVPB 20 MG/50 ML MG IVPB SCH ×2 (09:22→22:30)
[2019-02-12] MEDS: cloNIDine HCL 0.1 MG TABLET PO SCH ×2 (09:22→22:30)
[2019-02-12] MEDS ORDERED: amLODIPine BESYLATE 10 MG TABLET (FP) PO SCH (10:00)
[2019-02-12] MEDS ORDERED: ENOXAPARIN NA (PORCINE) 40 MG/0.4 ML DISP.SYRIN SQ SCH ×2 (10:00)
[2019-02-12] MEDS ORDERED: SERTRALINE HCL 50 MG TABLET (FP) PO SCH (10:00)
--- NOTE | 2019-02-12 10:04 | PN ---
Progress Note, Physician - Current Medication List Current Medications: Active Medications Acetaminophen (Tylenol -) 650 mg PO Q4H PRN PRN Reason: PAIN SCALE 1-5 Al Hydroxide/Mg Hydroxide (Mylanta Oral Suspension -) 30 ml PO TID [facility] Last Admin: 02/12/19 05:39 Dose: 30 ml Albuterol Sulfate (Ventolin Hfa Inhaler -) 2 puff IH Q4H PRN PRN Reason: SHORT OF BREATH/WHEEZING Amlodipine Besylate (Norvasc -) 10 mg PO DAILY [facility] Last Admin: 02/12/19 09:22 Dose: 10 mg Clonazepam (Klonopin -) 1 mg PO BID [facility] Last Admin: 02/12/19 09:22 Dose: 1 mg Clonidine (Catapres -) 0.1 mg PO BID [facility] Last Admin: 02/12/19 09:22 Dose: 0.1 mg Enoxaparin Sodium (Lovenox -) 40 mg SQ DAILY [facility] Last Admin: 02/12/19 09:22 Dose: 40 mg Hydromorphone HCl (Dilaudid Liquefaction And Regasification Helper -) 10 mg RELAY CHECKER RELAY CHECKER [facility]; Protocol Stop: 02/18/19 14:27 Last Admin: 02/12/19 07:03 Dose: 10 mg Famotidine/Sodium Chloride (Pepcid 20 Mg Premixed Ivpb -) 20 mg in 50 mls @ 100 mls/hr IVPB BID [facility] Last Admin: 02/12/19 09:22 Dose: 100 mls/hr Sodium Chloride (Normal Saline -) 1,000 mls @ 150 mls/hr IV ASDIR [facility] Last Admin: 02/11/19 23:58 Dose: 150 mls/hr Ondansetron HCl (Zofran Injection) 4 mg IVPUSH Q4H PRN PRN Reason: NAUSEA AND/OR VOMITING Sertraline HCl (Zoloft -) 100 mg PO DAILY [facility] Last Admin: 02/12/19 09:22 Dose: Not Given - Objective Vital Signs: Vital Signs Temperature 98.2 F 02/12/19 08:27 Pulse Rate 90 02/12/19 09:03 Respiratory Rate 18 02/12/19 09:03 Blood Pressure 133/78 02/12/19 09:03 O2 Sat by Pulse Oximetry (%) 96 02/12/19 09:03 Cardiovascular: Yes: Regular Rate and Rhythm Respiratory: Yes: Regular, CTA Bilaterally Gastrointestinal: Yes: Soft, Hypoactive Bowel Sounds, Tenderness Labs: CBC, BMP 02/12/19 06:00 02/12/19 06:00 INR, PTT INR 0.97 (0.83-1.09) 02/10/19 16:10 Problem List - Problems (1) Abdominal pain Assessment/Plan: likely 2/2 to obstruction -d/w Dr. Peterson -pt to the OR -CT showed gastric distention b/l ovarian cysts with fibroid -NPO Code(s): R10.9 - UNSPECIFIED ABDOMINAL PAIN (2) Asthma Assessment/Plan: stable Code(s): J45.909 - UNSPECIFIED ASTHMA, UNCOMPLICATED (3) HTN (hypertension) Assessment/Plan: pt npo will need ivp meds amlodipine 10 mgX1 Code(s): I10 - ESSENTIAL (PRIMARY) HYPERTENSION
[2019-02-12] MEDS ORDERED: SODIUM CHLORIDE 1,000 ML IV SCH (17:30)
[2019-02-12] MEDS ORDERED: ZOLPIDEM TARTRATE 5 MG TABLET PO PRN (22:17)
--- NOTE | 2019-02-13 01:17 | PN ---
Progress Note (short form) - Note Progress Note: Anesthesia post op note, POD#1, s/p reduction and repair of internal abdominal hernia. Pat seen and examined. VSS. No apparent post anesthesia complications.
[2019-02-13 01:59] VITALS: BP 136/101; PULSE 97; TEMP 97.6
[2019-02-13] MEDS: MAG HYDROX/AL HYDROX/SIMETH 30 ML UNIT-DOSE CUP PO SCH (06:23)
== END 2019-02-13 06:00 | disposition left against medical advice (07) | DRG 392 ==
LOC: JER 12:19 → JERBED 22:24 → J7W 02-11 01:02 → OBSVTOIN 02-11 11:44
PROVIDERS: ADMIT Internal Medicine; ATTEND Family Medicine
DX: R10.9 Unspecified abdominal pain (principal); G89.18 Other acute postprocedural pain; I10 Essential (primary) hypertension; K21.9 Gastro-esophageal reflux disease without esophagitis; M79.7 Fibromyalgia; D64.9 Anemia, unspecified; F32.9 Major depressive disorder, single episode, unspecified; Z98.84 Bariatric surgery status
CPT/HCPCS: 36415; 74177-TC; 80053; 81003; 83690; 83735; 84100; 84703; 85025; 85027; 85610; 86850; 86900; 86901; 87070; 87205; 94010; 94760; 99283-25; G0378; J0131; J0735; J7030

== ENCOUNTER 2019-02-13 17:25 | Emergency (ER) | payer BC ==
--- NOTE | 2019-02-13 17:57 | PDOC ---
Attending Attestation - Resident Resident Name: Jessa Maldonado - ED Attending Attestation I have performed the following: I have examined & evaluated the patient, The case was reviewed & discussed with the resident, I agree w/resident's findings & plan, Exceptions are as noted - HPI HPI: 02/13/19 18:57 Reviewed Residents HPI - Physicial Exam PE: 02/13/19 18:57 Reviewed Residents PE - Medical Decision Making 02/13/19 19:22 Patient AMA this morning from [facility] presents complaining of abdominal discomfort. Patient current sleeping comfortably has been walking around the emergency department comfortably Superficial TTP on exam. No rebound or guarding. Given recent surgery hastes discussed with her surgeon Dr. Peterson We'll check labs and reevaluate patient can be followed tomorrow if no significant laboratory findings. 02/13/19 19:22
--- NOTE | 2019-02-13 18:16 | PDOC ---
History of Present Illness - General Chief Complaint: Pain Stated Complaint: POST OP PAIN Time Seen by Provider: 02/13/19 17:45 History Source: Patient Exam Limitations: No Limitations - History of Present Illness Initial Comments: 02/13/19 18:07 44 YOF with h/o multiple abdominal surgeries and recent internal hernia reduction (POD#2) in the setting of gastric bypass 3 months ago, also with h/o HTN, fibromyalgia, GERD, and psychiatric history. The patient presented to the [facility] ED on 02/10/19 with abdominal pain and was admitted after CT abdomen showed e/o obstruction, for which she had OR reduction of internal hernia of the biliary segment of her gastric bypass. 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 She left with her PIV indwelling. Police went to her house and could not find her, but she came back to the inpatient floor in the morning where the PIV was removed and she was told she needed to go to the ED and could not be re- admitted straight to the floor. The patient comes to the [facility] today for continued post-operative abdominal pain. She has not taken any medications for the pain since leaving [facility] this morning. She had a moderate sized bowel movement today and ate pizza on her way to the [facility]. Past History - Past Medical History Allergies/Adverse Reactions: Allergies Allergy/AdvReac Type Severity Reaction Status Date / Time shellfish derived Allergy Intermediate Hives Verified 02/10/19 13:19 bupropion HCl Allergy Rash Verified 02/10/19 13:19 [From Wellbutrin] Home Medications: Ambulatory Orders Albuterol Sulfate [Proair Respiclick] 90 mcg IH PRN PRN 05/10/17 Zolpidem Tartrate [Ambien] 12.5 mg PO HS 06/04/17 cloNIDine HCL [Catapres -] 0.1 mg PO BID 06/11/17 Clonazepam [Klonopin] 1 mg PO BID 07/20/17 Amlodipine Besylate [Norvasc -] 10 mg PO DAILY 09/23/18 Budesonide/Formeterol Fumarate [SYMBICORT 160/4.5mcg -] 1 inh PO DAILY 10/28/18 Etanercept [Enbrel] 50 mg SQ WEEKLY 10/28/18 Iron 1 tab PO DAILY 10/28/18 Oxycodone HCl/Acetaminophen [Percocet 10-325 mg Tablet] 1 each PO QID #20 tablet MDD 4 11/07/18 Fluconazole [Diflucan] 150 mg PO DAILY #2 tablet 11/25/18 Anemia: Yes Asthma: Yes (USES INHALER,PROAIR, was unable to refill inhaler) Cancer: No Cardiac Disorders: No CVA: No COPD: No CHF: No Dementia: No Diabetes: No GI Disorders: Yes (GERD) Disorders: No HTN: Yes Hypercholesterolemia: No Liver Disease: No Psychiatric Problems: Yes (DEPRESSION) Seizures: No Thyroid Disease: No - Surgical History Abdominal Surgery: Yes (VERTICAL SLEEVE GASTRECTOMY 2012, ABDOMINOPLASTY/AND REVISION, LIPO X2,) Appendectomy: No Cardiac Surgery: No Cholecystectomy: No GI Surgery: Yes (GASTRIC BYPASS 2 WEEKS AGO) Lung Surgery: No Neurologic Surgery: No Orthopedic Surgery: Yes (RIGHT KNEE, SHOULDER SX, WRIST SX) - Suicide/Smoking/Psychosocial Hx Smoking Status: No Smoking History: Never smoked Years of Tobacco Use: 24 Have you smoked in the past 12 months: No Number of Cigarettes Smoked Daily: 6 If you are a former smoker, when did you quit?: 10/14/18 'Breaking Loose' booklet given: 11/22/18 Hx Alcohol Use: No Drug/Substance Use Hx: No Substance Use Type: None Hx Substance Use Treatment: No Review of Systems - Review of Systems Able to Perform ROS?: Yes Comments:: 02/13/19 18:33 GEN: no fever, chills, malaise, generalized weakness, or weight change HEENT: no ear pain, sore throat, vision change, or eye pain CV: no chest pain, palpitations, lightheadedness, syncope, or edema RESP: no cough, wheezing, or SOB GI: abdominal pain, no nausea, vomiting, diarrhea, constipation, or white/black/ bloody stool : no dysuria, hematuria, incontinence, retention, bleeding, or discharge MSK: no neck/back pain, muscle weakness/pain, or joint swelling/pain NEURO: no headache, seizure, vertigo, numbness, tingling, or focal weakness PSYCH: no substance use, no behavior change SKIN: no jaundice, no rash ROS otherwise negative except as noted in HPI *Physical Exam - Vital Signs Last Vital Signs Temp Pulse Resp BP Pulse Ox 98.1 F 90 18 133/90 98 02/13/19 17:43 02/13/19 17:43 02/13/19 17:43 02/13/19 17:43 02/13/19 17:43 - Physical Exam Comments: 02/13/19 18:33 GENERAL: well-appearing, nontoxic, A/Ox4, no distress, answers questions appropriately HEENT: PERRLA, EOMI, moist mucous membranes NECK/BACK: no midline ttp, no spinal stepoff or deformity, no hematoma, full ROM , neck supple CARDIOVASCULAR: regular rate/rhythm, normal S1S2, no MGR, strong peripheral pulses, capillary refill <2 seconds, extremities wwp, no edema LUNGS/RESPIRATORY: no respiratory distress, CTAB GI/ABDOMEN: many abdominal scars of varying ages, one RLQ incision covered with soaked through piece of gauze and this incision is mildly dehiscent, abdomen is protuberent but symmetric [id number], soft, minimal ttp diffusely when distracted, no midline pulsatile masses : no CVA tenderness EXTREMITIES: no muscle atrophy, no acute deformity, no edema SKIN: warm and dry, no pallor, no jaundice, no rash, no bruising, no skin breakdown, no cuts, no lesions NEUROLOGICAL: GCS 15, CN II-XII grossly intact, 5/5 strength proximally and distally, no facial droop Medical Decision Making - Medical Decision Making 02/13/19 18:22 Pt who is POD #2 from operative internal hernia reduction in the setting of gastric bypass 3 months ago who p/w continued pain since operation. Initial Vital Signs Temp Pulse Resp BP Pulse Ox 98.1 F 90 18 133/90 98 02/13/19 17:43 02/13/19 17:43 02/13/19 17:43 02/13/19 17:43 02/13/19 17:43 Exam: As noted in Physical Exam section. DDX IBNLT: most likely normal post-operative course but always considered in this case are re-obstruction, hemoperitoneum, infection (e.g. colitis), pancreatitis, etc. W/U ordered: None initially; will await Dr. Peterson's recommendation TX ordered: None initially 02/13/19 18:[address] Peterson who recommends basic labs (as she did not have them as scheduled this AM d/t elopement). He will be called back after labs result for further planning; most likely can be seen in his office tomorrow. Orders placed for CBCD, CMP. On re-assessment patient is sleeping comfortably in ED bed. 02/13/19 18:50 Patient's care is endorsed to shift supervisor film processing attending at the end of my shift pending Dr. Peterson's correspondence on sxs control and f/u. *DC/Admit/Observation/Transfer Diagnosis at time of Disposition: Abdominal pain Qualifiers: Abdominal location: unspecified location Qualified Code(s): R10.9 - Unspecified abdominal pain - Discharge Dispostion Condition at time of disposition: Stable - Referrals Referrals: Dave Gary MD [Primary Care Provider] - Jesús Peterson MD [Staff Physician] - - Patient Instructions - Post Discharge Activity
[2019-02-13 18:27] VITALS: BP 133/90; PULSE 90; TEMP 98.1; BMI 31.1
[2019-02-13 19:44] LABS: BASO % 0.9 % (0-2.0); EOS % 3.1 % (0-4.5); HEMATOCRIT 33.3 % (32.4-45.2); HEMOGLOBIN 10.9 GM/dl (10.7-15.3); LYMPH % 30.8 % (8-40); MCHC 32.6 g/dl (32.0-36.0); MEAN CELL VOLUME 98.1 fl (80-96); MEAN PLT VOLUME 8.6 fl (7.5-11.1); MONO % 9.5 % (3.8-10.2); NEUT % 55.7 % (42.8-82.8); PLATELET COUNT 223 K/MM3 (134-434); WHITE BLOOD COUNT 5.6 K/mm3 (4.0-10.8)
[2019-02-13 20:00] LABS: BILIRUBIN,TOTAL 0.5 mg/dl (0.2-1); CALCIUM 8.3 mg/dl (8.5-10); CREATININE 0.6 mg/dl (0.55-1.3); POTASSIUM 3.3 mmol/L (3.5-5.1); TOT PROT 6.2 g/dl (6.4-8.2)
[2019-02-13] MEDS ORDERED: POTASSIUM CHLORIDE TABS 20 MEQ TABLET.ER (FP) PO ONE ×2 (20:53→20:56)
[2019-02-13] MEDS ORDERED: KETOROLAC TROMETHAMINE 60 MG/2 ML VIAL IM ONE (21:16)
--- NOTE | 2019-02-13 21:17 | PDOC ---
*Physical Exam - Vital Signs Last Vital Signs Temp Pulse Resp BP Pulse Ox 98.1 F 90 18 133/90 98 02/13/19 17:43 02/13/19 17:43 02/13/19 17:43 02/13/19 17:43 02/13/19 17:43 ED Treatment Course - LABORATORY CBC & Chemistry Diagram: 02/13/19 19:35 02/13/19 19:35 - ADDITIONAL ORDERS Additional order review: Laboratory Results 02/13/19 19:35 Sodium 136 Potassium 3.3 L Chloride 107 Carbon Dioxide 24 Anion Gap 5 L BUN 6 L Creatinine 0.6 Est GFR (CKD-EPI)AfAm 129.39 Est GFR (CKD-EPI)NonAf 111.64 Random Glucose 95 Calcium 8.3 L Total Bilirubin 0.5 AST 26 ALT 18 Alkaline Phosphatase 72 Total Protein 6.2 L Albumin 3.0 L 02/13/19 19:35 RBC 3.40 L MCV 98.1 H MCHC 32.6 RDW 15.0 MPV 8.6 Neutrophils % 55.7 Lymphocytes % 30.8 Monocytes % 9.5 Eosinophils % 3.1 Basophils % 0.9 - Medications Given in the ED: ED Medications Discontinued Medications Generic Name Dose Route Start Last Admin Trade Name Freq PRN Reason Stop Dose Admin Potassium Chloride 40 meq 02/13/19 20:53 02/13/19 20:58 K-Dur - PO 02/13/19 20:54 40 meq ONCE ONE Administration Progress Note - Progress Note Progress Note: Care of this patient received from . Results of the patient's chemistry profile and CBC reviewed with . Patient received 40 mEq Kaye Dur orally and will be discharged with plans to follow-up with Dr. Peterson within the next 48 hours The patient asked for Toradol 60 mg IM for residual abdominal discomfort. After Toradol IM, the patient was more comfortable and was discharged *DC/Admit/Observation/Transfer Diagnosis at time of Disposition: Abdominal pain Qualifiers: Abdominal location: unspecified location Qualified Code(s): R10.9 - Unspecified abdominal pain - Discharge Dispostion Disposition: HOME Condition at time of disposition: Stable - Referrals Referrals: Dave Gary MD [Primary Care Provider] - Jesús Peterson MD [Staff Physician] - 24 hours - Patient Instructions Additional Instructions: Continue medications as prescribed Follow-up with Dr. Peterson within the next 48 hours Return to ER if you have persistent, severe pain or develop fever/vomiting - Post Discharge Activity
[2019-02-13] MEDS ORDERED: KETOROLAC TROMETHAMINE 60 MG/2 ML VIAL ONE (21:20)
== END 2019-02-13 21:26 | disposition home or self-care (01) ==
LOC: FER 17:25 → SUPCPDRO 17:25 → FER 21:26
PROC: 3E0233Z Introduction of Anti-inflammatory into Muscle, Percutaneous Approach (ICD-10-PCS; principal; 2019-02-13)
DX: R10.9 Unspecified abdominal pain (principal); Z98.84 Bariatric surgery status; F32.9 Major depressive disorder, single episode, unspecified; I10 Essential (primary) hypertension; Z87.891 Personal history of nicotine dependence
CPT/HCPCS: 36415; 80053; 85025; 99283-25

== ENCOUNTER 2019-03-09 11:29 | Emergency (ER) | payer BC | END 2019-03-09 14:56 | disposition home or self-care (01) | LOC: FER 11:29 ==

== ENCOUNTER 2019-04-10 15:55 | Emergency (ER) | payer BC, OTHER ==
[2019-04-10 16:04] VITALS: BP 131/86; PULSE 97; TEMP 98.4; BMI 26.6
[2019-04-10] MEDS ORDERED: METOCLOPRAMIDE HCL 10 MG TABLET (FP) PO ONE ×2 (16:09→16:11)
[2019-04-10] MEDS ORDERED: KETOROLAC TROMETHAMINE 60 MG/2 ML VIAL IM ONE (16:09)
[2019-04-10] MEDS ORDERED: KETOROLAC TROMETHAMINE 60 MG/2 ML VIAL ONE (16:12)
--- NOTE | 2019-04-10 16:35 | PDOC ---
Documentation entered by Homero Dillard SCRIBE, acting as scribe for Shaji Trejo MD. Shaji Trejo MD: This documentation has been prepared by the kathleeneGilma Elijah, SCRIBE, under my direction and personally reviewed by me in its entirety. I confirm that the documentation accurately reflects all work, treatment, procedures, and medical decision making performed by me. History of Present Illness - General Chief Complaint: Headache Stated Complaint: HEADACHE AFTER HITTING HEAD ON DEST 2 DAYS AGO AT - History of Present Illness Initial Comments: 04/10/19 16:21 Patient is a 44 year old female with a significant past medical history of Migraines, Acid Reflux, RA, Fibromyalgia, HTN, and Asthma who presents to the ED with a pounding, localized to the right side of the head, Headache lasting for x2 days. Patient was at work when she reached for a pen and hit her head on the desk. Patient was given advil and ice, but during the last x2 days at work the pain has not subsided prompting her visit to the ED. Patient reports the DUQUE is made worse with loud noise and changing of light from bright to dark. Denies Syncope, blurry vision, tingling, weakness, nausea and vomiting. Allergies:Shellfish Derived and Bupropion HCL PCP: Dr. Gary Social History: 15 Cigarettes Daily for 24 years. Past History - Past Medical History Allergies/Adverse Reactions: Allergies Allergy/AdvReac Type Severity Reaction Status Date / Time shellfish derived Allergy Intermediate Hives Verified 02/10/19 13:19 bupropion HCl Allergy Rash Verified 04/10/19 15:57 [From Wellbutrin] Home Medications: Ambulatory Orders Albuterol Sulfate [Proair Respiclick] 90 mcg IH PRN PRN 05/10/17 Zolpidem Tartrate [Ambien] 12.5 mg PO HS 06/04/17 cloNIDine HCL [Catapres -] 0.1 mg PO BID 06/11/17 Clonazepam [Klonopin] 1 mg PO BID 07/20/17 Amlodipine Besylate [Norvasc -] 10 mg PO DAILY 09/23/18 Budesonide/Formeterol Fumarate [SYMBICORT 160/4.5mcg -] 1 inh PO DAILY 10/28/18 Etanercept [Enbrel] 50 mg SQ WEEKLY 10/28/18 Iron 1 tab PO DAILY 10/28/18 Oxycodone HCl/Acetaminophen [Percocet 10-325 mg Tablet] 1 each PO QID #20 tablet MDD 4 11/07/18 Diphenhydramine HCl [Benadryl -] 100 mg PO ONCE PRN 03/09/19 Esomeprazole Magnesium [Nexium 24Hr] 20 mg PO DAILY 03/09/19 Mag Hydrox/Al Hydrox/Simeth [Mylanta *Suspension*] 30 ml PO Q6H PRN #28 cup Ranitidine HCl [Zantac] 150 mg PO BID PRN #14 tablet 03/09/19 Anemia: Yes Asthma: Yes (USES INHALER,PROAIR, was unable to refill inhaler) Cancer: No Cardiac Disorders: No CVA: No COPD: No CHF: No Dementia: No Diabetes: No GI Disorders: Yes (GERD) Disorders: No HTN: Yes Hypercholesterolemia: No Liver Disease: No Psychiatric Problems: Yes (DEPRESSION) Seizures: No Thyroid Disease: No Other medical history: RHEUMATOID ARTHRITIS, FIBRO MYAGLIA - Surgical History Abdominal Surgery: Yes (VERTICAL SLEEVE GASTRECTOMY 2012, ABDOMINOPLASTY/AND REVISION, LIPO X2,) Appendectomy: No Cardiac Surgery: No Cholecystectomy: No GI Surgery: Yes (GASTRIC BYPASS 2 WEEKS AGO) Lung Surgery: No Neurologic Surgery: No Orthopedic Surgery: Yes (RIGHT KNEE, SHOULDER SX, WRIST SX) - Suicide/Smoking/Psychosocial Hx Smoking Status: No Smoking History: Current every day smoker Years of Tobacco Use: 24 Have you smoked in the past 12 months: No Number of Cigarettes Smoked Daily: 15 If you are a former smoker, when did you quit?: 10/14/18 Information on smoking cessation initiated: No 'Breaking Loose' booklet given: 11/22/18 Hx Alcohol Use: Yes (SOCIAL) Drug/Substance Use Hx: No Substance Use Type: None Hx Substance Use Treatment: No Review of Systems - Review of Systems Comments:: 04/10/19 16:22 Constitutional - Pt denies Fever, Chills, weakness, HEENT: denies vision changes, sore throat Respiratory: Denies cough, sob, hemoptysis Cardiac: denies chest pain, palpitations, light headedness, leg swelling Abd/GI: denies abd pain, nausea, vomiting, blood per rectum, melena, diarrhea : denies dysuria, frequency, discharge Musculoskeletal - denies back pain, joint swelling skin - denies bruising, erythema, rash neurological: +headache. Denies numbness, focal weakness, tingling, ataxia, weakness hematologic: denies anemia, easy bruising, easy bleeding *Physical Exam - Vital Signs Last Vital Signs Temp Pulse Resp BP Pulse Ox 98.4 F 97 H 16 131/86 100 04/10/19 15:56 04/10/19 15:56 04/10/19 15:56 04/10/19 15:56 04/10/19 15:56 - Physical Exam Comments: 04/10/19 16:08 GENERAL: The patient is awake, alert, and fully oriented, Nontoxic - in no acute distress. HEAD: Normocephalic, mild ttp above R supraorbital rim w/o inudration/eccymosis/ stepoffs/crepitus EYES: extraocular movements intact, sclera anicteric, conjunctiva clear. No racoon eyes, PERRL ENT: Normal voice, Moist mucous membranes. no battles sign NECK: Normal range of motion, supple without lymphadenopathy, JVD, or masses. LUNGS: Breath sounds equal, clear to auscultation bilaterally. No wheezes, no crackles, no rales. HEART: Regular rate and rhythm, normal S1 and S2 without murmur, rub or gallop. NEUROLOGICAL: No facial asymmetry, Normal speech, movinga ll 4 extremities spontaneously and symmetrcally PSYCH: Normal mood, normal affect. SKIN: Warm, Dry, normal turgor, no rashes or lesions noted. Medical Decision Making - Medical Decision Making 04/10/19 16:15 44y F presents headache after striking her head on the desk 2 days ago - there was no LOC, n/v, vision chagnes, neck pain, numbness/tingling/weakness. Pt notes heaedache is pounding is localized to the rigth side and associated with photophobia. no neck pain on exam pt well appaerin in no distress normal neuro exam suspect tension possible migraine headache considered but doubt SAH/ICH based on minior head trauma and no risk facotrs ( young, not on a/c) will give toradol/reglan anticipate dc with pmd fu I discussed the physical exam findings, ancillary test results and final diagnoses with the patient. I answered all of the patient's questions. The patient was satisfied with the care received and felt comfortable with the discharge plan and treatment plan. The patient will call their primary care physician within 24 hours to arrange follow-up and will return to the Emergency Department with any new, persistent or worsening symptoms. *DC/Admit/Observation/Transfer Diagnosis at time of Disposition: Headache Qualifiers: Headache type: tension-type Headache chronicity pattern: acute headache Intractability: not intractable Qualified Code(s): G44.209 - Tension-type headache, unspecified, not intractable - Discharge Dispostion Disposition: HOME Condition at time of disposition: Improved Decision to Admit order: No - Referrals Referrals: Zane Mckoy MD [Staff Physician] - - Patient Instructions Printed Discharge Instructions: DI for Post-traumatic Headache Additional Instructions: Return to the emergency department immediately with ANY new, persistent or worsening symptoms including worsening headache, vision changes, numbness/ tingling/weakness, persistent nausea and vomiting or any other concerns. Make sure you are getting adaqute sleep and hydration. You MUST call and follow up with your doctor in 4-5 days for further evaluation of your symptoms. Your emergency department visit is not complete without a followup with your doctor for reevaluation. Results were discussed with you. Please make sure your doctor reviews the results of your emergency evaluation. Print Language: KOSOVAN - Post Discharge Activity Forms/Work/School Notes: Back to Work
== END 2019-04-10 16:40 | disposition home or self-care (01) ==
LOC: FER 15:55
PROC: 3E0233Z Introduction of Anti-inflammatory into Muscle, Percutaneous Approach (ICD-10-PCS; principal; 2019-04-10)
DX: S09.90XA Unspecified injury of head, initial encounter (principal); R51 Headache; G44.209 Tension-type headache, unspecified, not intractable; X58.XXXA Exposure to other specified factors, initial encounter; Y93.89 Activity, other specified; Y92.89 Other specified places as the place of occurrence of the external cause; F17.210 Nicotine dependence, cigarettes, uncomplicated; Z98.84 Bariatric surgery status; M06.9 Rheumatoid arthritis, unspecified; F32.9 Major depressive disorder, single episode, unspecified; J45.909 Unspecified asthma, uncomplicated; K21.9 Gastro-esophageal reflux disease without esophagitis
CPT/HCPCS: 99281-25

== ENCOUNTER 2019-05-04 21:47 | Inpatient (IN) | payer BC, OTHER ==
[2019-05-04] MEDS ORDERED: ALBUTEROL SO4 2.5/IPRATROPIUM 0.5 INH SOL 3 ML VIAL.NEB. NEB ONE (22:07)
[2019-05-04] MEDS ORDERED: predniSONE 20 MG TABLET (UD) ONE (22:07)
[2019-05-04] MEDS ORDERED: ALBUTEROL SO4 2.5/IPRATROPIUM 0.5 INH SOL 3 ML VIAL.NEB. NEB STA (22:13)
[2019-05-04] MEDS ORDERED: predniSONE 20 MG TABLET (UD) PO ONE (22:14)
--- NOTE | 2019-05-04 22:20 | PDOC ---
Documentation entered by Michelle Donahue SCRIBE, acting as scribe for Alex Min MD. Alex Min MD: This documentation has been prepared by the Godfrey amin Mackenzie, SCRIBE, under my direction and personally reviewed by me in its entirety. I confirm that the documentation accurately reflects all work, treatment, procedures, and medical decision making performed by me. History of Present Illness - General Chief Complaint: Respiratory Stated Complaint: COUGH/HEADACHE History Source: Patient Exam Limitations: No Limitations - History of Present Illness Initial Comments: The patient is a 44 year old female, with a significant PMH of asthma who presents to the emergency department after being released from [facility] ED yesterday with an asthma exacerbation. Patient states she was at work Wednesday when she began to have difficulty breathing. Patient endorses uncontrollable wheezing and coughing. Patient states she was admitted at [facility] Wednesday and released yesterday with a 40 mg tapered dosage of Prednisone. Patient states she lost the prescription and has not taken it today causing her symptoms to return. The patient denies chest pain, and dizziness. Denies fever, chills, nausea, vomiting, diarrhea and constipation. Denies dysuria, frequency, urgency and hematuria. PAST MEDICAL HISTORY: asthma PAST SURGICAL HISTORY: no significant history FAMILY HISTORY: no pertinent history SOCIAL HISTORY: Pt lives with family and is employed. MEDICATIONS: reviewed ALLERGIES: As per nursing notes General: No fevers or chills, no weakness, no weight loss HEENT: No change in vision. No sore throat,. No ear pain CardioVascular: No chest pain. Respiratory: (+)Cough. (+)Wheezing. Gastrointestinal: no nausea, vomiting, diarrhea or constipation, No rectal bleeding Genitourinary: No dysuria, hematuria, or frequency Musculoskeletal: No joint or muscle pain or swelling Neurologic: No headache, vertigo, dizziness or loss of consciousness Psychiatric: nor depression Skin: No rashes or easy bruising Endocrine: no increased thirst or abnormal weight change Allergic: no skin or latex allergy All other systems reviewed and normal Assessment and plan: This is a 44-year-old female who is well-known to me. Patient comes in for exacerbation of asthma. Patient was admitted 2 nights ago at [facility] and discharged on a prednisone taper. Patient lost her prednisone so did not take it today and lost the past to her nebulizer machine so was unable to use the machine. Patient did have a metered-dose inhaler which she was able to use. Patient comes in with diffuse expiratory wheezing in all lung pham. Patient given 3 duo nebs and 60 mg of prednisone. 23:30 reevaluation. Patient is not improved after 3 duo nebs. Patient still has diffuse wheezing with expiratory phrase get an respiratory Fridays. Patient states she does not feel improved and patient will be admitted to an inpatient bed for further management of her asthma. Past History - Past Medical History Allergies/Adverse Reactions: Allergies Allergy/AdvReac Type Severity Reaction Status Date / Time shellfish derived Allergy Intermediate Hives Verified 02/10/19 13:19 bupropion HCl Allergy Rash Verified 04/10/19 15:57 [From Wellbutrin] Home Medications: Ambulatory Orders Albuterol Sulfate [Proair Respiclick] 90 mcg IH PRN PRN 05/10/17 Zolpidem Tartrate [Ambien] 10 mg PO HS 06/04/17 cloNIDine HCL [Catapres -] 0.1 mg PO BID 06/11/17 Clonazepam [Klonopin] 1 mg PO BID 07/20/17 Amlodipine Besylate [Norvasc -] 10 mg PO DAILY 09/23/18 Budesonide/Formeterol Fumarate [SYMBICORT 160/4.5mcg -] 1 inh PO BID 10/28/18 Etanercept [Enbrel] 50 mg SQ WEEKLY 10/28/18 Diphenhydramine HCl [Benadryl -] 100 mg PO DAILY 03/09/19 Esomeprazole Magnesium [Nexium 24Hr] 40 mg PO DAILY 03/09/19 Mag Hydrox/Al Hydrox/Simeth [Mylanta *Suspension*] 30 ml PO Q6H PRN #28 cup Anemia: Yes Asthma: Yes (USES INHALER,PROAIR, was unable to refill inhaler) Cancer: No Cardiac Disorders: No CVA: No COPD: No CHF: No Dementia: No Diabetes: No GI Disorders: Yes (GERD) Disorders: No HTN: Yes Hypercholesterolemia: No Liver Disease: No Psychiatric Problems: Yes (DEPRESSION) Seizures: No Thyroid Disease: No - Surgical History Abdominal Surgery: Yes (VERTICAL SLEEVE GASTRECTOMY 2012, ABDOMINOPLASTY/AND REVISION, LIPO X2,) Appendectomy: No Cardiac Surgery: No Cholecystectomy: No GI Surgery: Yes (GASTRIC BYPASS 2 WEEKS AGO) Lung Surgery: No Neurologic Surgery: No Orthopedic Surgery: Yes (RIGHT KNEE, SHOULDER SX, WRIST SX) - Suicide/Smoking/Psychosocial Hx Smoking Status: No Smoking History: Never smoked Years of Tobacco Use: 24 Have you smoked in the past 12 months: No Number of Cigarettes Smoked Daily: 6 If you are a former smoker, when did you quit?: 10/14/18 'Breaking Loose' booklet given: 11/22/18 Hx Alcohol Use: No Drug/Substance Use Hx: No Substance Use Type: None Hx Substance Use Treatment: No *Physical Exam - Vital Signs Last Vital Signs Temp Pulse Resp BP Pulse Ox 99.1 F 112 H 18 113/83 98 05/04/19 21:53 05/04/19 21:53 05/04/19 21:53 05/04/19 21:53 05/04/19 21:53 - Physical Exam Comments: General: Well-nourished well-developed individual, no acute distress HEENT: Throat: Normal, tonsils normal, no erythema or exudate Neck: Supple, no meningeal signs, no lymphadenopathy Eyes::Pupils equal reactive and round, extraocular motion intact Chest: Nontender to palpation Cardiac: S1-S2 normal, regular rate and rhythm, no murmurs rubs or gallops Respiratory: (+ )Expiratory wheezing in all lung pham. (+)Expiratory phase greater than inspiratory phase. Extremities: Warm, dry, no cyanosis, clubbing, or edema Skin: No rashes Neuro: Alert and oriented x3, nonfocal exam, grossly intact, normal gait Psych: Normal mood and affect 05/04/19 22:17 ED Treatment Course - LABORATORY CBC & Chemistry Diagram: 05/04/19 23:15 05/04/19 23:15 - Medications Given in the ED: ED Medications Discontinued Medications Generic Name Dose Route Start Last Admin Trade Name Freq PRN Reason Stop Dose Admin Albuterol/Ipratropium 1 amp 05/04/19 22:13 05/04/19 22:15 Duoneb - NEB 05/04/19 22:14 1 amp Q15M STA Administration Prednisone 60 mg 05/04/19 22:14 05/04/19 22:15 Deltasone - PO 05/04/19 22:15 60 mg ONCE ONE Administration *DC/Admit/Observation/Transfer Diagnosis at time of Disposition: Status asthmaticus Qualifiers: Asthma severity: moderate Asthma persistence: unspecified Qualified Code(s): J45.902 - Unspecified asthma with status asthmaticus - Discharge Dispostion Condition at time of disposition: Stable Decision to Admit order: Yes - Referrals Referrals: Zane Mckoy MD [Primary Care Provider] - - Patient Instructions - Post Discharge Activity
[2019-05-04] MEDS ORDERED: traMADol HCL 50 MG TABLET PO ONE (23:20)
[2019-05-04] MEDS ORDERED: traMADol HCL 50 MG TABLET ONE (23:22)
[2019-05-04] MEDS ORDERED: ACETAMINOPHEN 500 MG TABLET (FP) PO ONE (23:27)
[2019-05-04 23:29] LABS: BASO % 1.3 % (0-2.0); EOS % 0.6 % (0-4.5); HEMATOCRIT 41.1 % (32.4-45.2); LYMPH % 19.9 % (8-40); MCH 31.9 pg (25.7-33.7); MCHC 31.6 g/dl (32.0-36.0); MEAN CELL VOLUME 100.9 fl (80-96); MEAN PLT VOLUME 8.6 fl (7.5-11.1); MONO % 7.1 % (3.8-10.2); NEUT % 71.1 % (42.8-82.8); PLATELET COUNT 354 K/MM3 (134-434); RBC 4.08 M/mm3 (3.60-5.2); RDW 15.1 % (11.6-15.6); WHITE BLOOD COUNT 8.4 K/mm3 (4.0-10.8)
[2019-05-04 23:34] LABS: EPITHELIAL CELLS FEW /hpf
[2019-05-04 23:48] LABS: ALBUMIN 3.5 g/dl (3.4-5.0); BILIRUBIN,TOTAL 0.4 mg/dl (0.2-1); CALCIUM 8.7 mg/dl (8.5-10); CREATININE 0.8 mg/dl (0.55-1.3); POTASSIUM 3.9 mmol/L (3.5-5.1); TOT PROT 7.1 g/dl (6.4-8.2)
[2019-05-05 01:44] VITALS: BMI 26.1
[2019-05-05 06:39] VITALS: BP 109/76; PULSE 101; TEMP 97.8
[2019-05-05] MEDS ORDERED: ALBUTEROL SO4 2.5/IPRATROPIUM 0.5 INH SOL 3 ML VIAL.NEB. NEB SCH (08:00)
[2019-05-05 09:04] LABS: HEMATOCRIT 39.2 % (32.4-45.2); HEMOGLOBIN 12.6 GM/dl (10.7-15.3); MCH 31.9 pg (25.7-33.7); MCHC 32.2 g/dl (32.0-36.0); MEAN PLT VOLUME 9.4 fl (7.5-11.1); PLATELET COUNT 361 K/MM3 (134-434); RBC 3.96 M/mm3 (3.60-5.2); RDW 14.6 % (11.6-15.6)
[2019-05-05 09:09] LABS: CALCIUM 9.1 mg/dl (8.5-10); CREATININE 0.7 mg/dl (0.55-1.3); MAGNESIUM 1.9 mg/dL (1.8-2.4); POTASSIUM 4.1 mmol/L (3.5-5.1)
[2019-05-05] MEDS ORDERED: predniSONE 20 MG TABLET (UD) PO SCH (10:00)
[2019-05-05] MEDS ORDERED: clonazePAM 0.5 MG TABLET PO SCH (10:00)
[2019-05-05] MEDS ORDERED: NICOTINE 7 MG/24 HOURS TOPICAL PATCH TD SCH (10:00)
[2019-05-05] MEDS ORDERED: amLODIPine BESYLATE 10 MG TABLET (FP) PO SCH (10:00)
[2019-05-05] MEDS ORDERED: ENOXAPARIN NA (PORCINE) 40 MG/0.4 ML DISP.SYRIN SQ SCH (10:00)
[2019-05-05] MEDS ORDERED: cloNIDine HCL 0.1 MG TABLET PO SCH (10:00)
[2019-05-05] MEDS ORDERED: BUDESONIDE/FORMETEROL FUMARATE 160/4.5 mcg INHALER IH SCH (10:00)
[2019-05-05 11:56] LABS: PLATELET ESTIMATE ADEQUATE
--- NOTE | 2019-05-05 13:44 | EKG ---
Test Reason : Blood Pressure : / mmHG Vent. Rate : 106 BPM Atrial Rate : 106 BPM P-R Int : 128 ms QRS Dur : 076 ms QT Int : 354 ms P-R-T Axes : 050 -29 023 degrees QTc Int : 470 ms SINUS TACHYCARDIA MODERATE VOLTAGE CRITERIA FOR LVH, MAY BE NORMAL VARIANT LEFT ATRIAL ENLARGEMENT WHEN COMPARED WITH ECG OF 09-MAR-2019 12:13, NO SIGNIFICANT CHANGE WAS FOUND Confirmed by ELLA SANTACRUZ MD ([id number]) on 05/05/2019 1:43:35 PM Referred By: SOFYA EPSTEIN Confirmed By:ELLA SANTACRUZ MD
[2019-05-05] MEDS ORDERED: SERTRALINE HCL 50 MG TABLET (FP) PO SCH (22:00)
== END 2019-05-05 09:05 | disposition left against medical advice (07) | DRG 203 ==
LOC: FER 21:47 → FM/S 05-05 00:04 → UNDOADMIN 05-05 00:29 → FM/S 05-05 00:29
PROVIDERS: ADMIT Family Medicine; ATTEND Family Medicine
DX: J45.902 Unspecified asthma with status asthmaticus (principal)
CPT/HCPCS: 36415; 71045-TC-FY; 80048; 80053; 81003; 81015; 83735; 84703; 85025; 93005; 99284-25

== ENCOUNTER 2019-07-10 20:59 | Emergency (ER) | payer BC ==
[2019-07-10 21:18] VITALS: PULSE 97; TEMP 98.8; BMI 25.2
[2019-07-10 21:54] LABS: BASO % 0.6 % (0-2.0); EOS % 1.6 % (0-4.5); HEMATOCRIT 38.8 % (32.4-45.2); HEMOGLOBIN 12.8 GM/dl (10.7-15.3); LYMPH % 28.8 % (8-40); MCH 32.9 pg (25.7-33.7); MCHC 32.9 g/dl (32.0-36.0); MEAN CELL VOLUME 100.1 fl (80-96); MEAN PLT VOLUME 8.3 fl (7.5-11.1); MONO % 8.4 % (3.8-10.2); NEUT % 60.6 % (42.8-82.8); PLATELET COUNT 446 K/MM3 (134-434); RBC 3.88 M/mm3 (3.60-5.2); RDW 15.1 % (11.6-15.6); WHITE BLOOD COUNT 7.1 K/mm3 (4.0-10.8)
[2019-07-10 22:08] LABS: ALBUMIN 3.8 g/dl (3.4-5.0); BILIRUBIN,TOTAL 0.9 mg/dl (0.2-1); CREATININE 0.8 mg/dl (0.55-1.3); POTASSIUM 4.3 mmol/L (3.5-5.1); TOT PROT 7.5 g/dl (6.4-8.2)
--- NOTE | 2019-07-11 01:00 | PDOC ---
Documentation entered by Anita Abreu SCRIBE, acting as scribe for Víctor Way MD. Víctor Way MD: This documentation has been prepared by the Brady amin Sammi, SCRIBE, under my direction and personally reviewed by me in its entirety. I confirm that the documentation accurately reflects all work, treatment, procedures, and medical decision making performed by me. History of Present Illness - General Chief Complaint: Pain, Acute Stated Complaint: ABDOMINAL PAIN - History of Present Illness Initial Comments: 07/10/19 21:37 The patient is a 44 year old female who presents to the emergency department for evaluation of 2 days of abdominal pain. She states she ate a bagel yesterday and the abdominal pain started soon after. She notes the pain is exacerbated by any oral intake. The patient contacted Dr. Peterson who did her gastric bypass surgery and recommended the patient go on a liquid diet. She said the abdominal pain was so severe that she went to urgent care who advised she be evaluated in the emergency department. PMH: Migraines, Acid Reflux, RA, Fibromyalgia, HTN, and Asthma Surgical history: gastric bypass (10/2018) PCP: Kristen Past History - Past Medical History Allergies/Adverse Reactions: Allergies Allergy/AdvReac Type Severity Reaction Status Date / Time shellfish derived Allergy Intermediate Hives Verified 07/10/19 21:13 bupropion HCl Allergy Rash Verified 07/10/19 21:13 [From Wellbutrin] Home Medications: Ambulatory Orders Albuterol Sulfate [Proair Respiclick] 90 mcg IH PRN PRN 05/10/17 Zolpidem Tartrate [Ambien] 10 mg PO HS 06/04/17 cloNIDine HCL [Catapres -] 0.1 mg PO BID 06/11/17 Clonazepam [Klonopin] 1 mg PO BID 07/20/17 Amlodipine Besylate [Norvasc -] 10 mg PO DAILY 09/23/18 Budesonide/Formeterol Fumarate [SYMBICORT 160/4.5mcg -] 1 inh PO BID 10/28/18 Etanercept [Enbrel] 50 mg SQ WEEKLY 10/28/18 Diphenhydramine HCl [Benadryl -] 100 mg PO DAILY 03/09/19 Esomeprazole Magnesium [Nexium 24Hr] 40 mg PO DAILY 03/09/19 Mag Hydrox/Al Hydrox/Simeth [Mylanta *Suspension*] 30 ml PO Q6H PRN #28 cup Sertraline HCl 100 mg PO HS 05/05/19 Anemia: Yes Asthma: Yes (USES INHALER,PROAIR, was unable to refill inhaler) Cancer: No Cardiac Disorders: No CVA: No COPD: No CHF: No Dementia: No Diabetes: No GI Disorders: Yes (GERD) Disorders: No HTN: Yes Hypercholesterolemia: No Liver Disease: No Psychiatric Problems: Yes (DEPRESSION) Seizures: No Thyroid Disease: No - Surgical History Abdominal Surgery: Yes (VERTICAL SLEEVE GASTRECTOMY 2011, ABDOMINOPLASTY/AND REVISION, LIPO X2,) Appendectomy: No Cardiac Surgery: No Cholecystectomy: No GI Surgery: Yes (GASTRIC BYPASS 2 WEEKS AGO) Lung Surgery: No Neurologic Surgery: No Orthopedic Surgery: Yes (RIGHT KNEE, SHOULDER SX, WRIST SX) - Psycho Social/Smoking Cessation Hx Smoking Status: No Smoking History: Never smoked Years of Tobacco Use: 24 Have you smoked in the past 12 months: No Number of Cigarettes Smoked Daily: 15 If you are a former smoker, when did you quit?: 10/14/18 'Breaking Loose' booklet given: 05/05/19 Hx Alcohol Use: No Drug/Substance Use Hx: No Substance Use Type: None Hx Substance Use Treatment: No Review of Systems - Review of Systems Comments:: 07/10/19 21:37 GENERAL/CONSTITUTIONAL: No fever or chills. No weakness. HEAD, EYES, EARS, NOSE AND THROAT: No change in vision. No ear pain or discharge. No sore throat. CARDIOVASCULAR: No chest pain or shortness of breath. RESPIRATORY: No cough, wheezing, or hemoptysis. GASTROINTESTINAL: +abdominal pain. No nausea, vomiting, diarrhea or constipation. GENITOURINARY: No dysuria, frequency, or change in urination. MUSCULOSKELETAL: No joint or muscle swelling or pain. No neck or back pain. SKIN: No rash NEUROLOGIC: No headache, vertigo, loss of consciousness, or change in strength/ sensation. *Physical Exam - Vital Signs Last Vital Signs Temp Pulse Resp BP Pulse Ox 98.8 F 97 H 18 155/105 H 100 07/10/19 21:15 07/10/19 21:15 07/10/19 21:15 07/10/19 21:15 07/10/19 21:15 - Physical Exam Comments: 07/10/19 21:37 GENERAL: Awake, alert, and fully oriented, in no acute distress NECK: Normal ROM, supple, no lymphadenopathy, JVD, or masses LUNGS: Breath sounds equal, clear to auscultation bilaterally. No wheezes, and no crackles HEART: Regular rate and rhythm, normal S1 and S2, no murmurs, rubs or gallops ABDOMEN: +mild diffuse lower abdominal pain. Soft, normoactive bowel sounds. No guarding, no rebound. No masses EXTREMITIES: Normal range of motion, no edema. No clubbing or cyanosis. No cords, erythema, or tenderness NEUROLOGICAL: Cranial nerves II through XII grossly intact. Normal speech, normal gait SKIN: Warm, Dry, normal turgor, no rashes or lesions noted. ED Treatment Course - LABORATORY CBC & Chemistry Diagram: 07/10/19 21:45 07/10/19 21:45 - ADDITIONAL ORDERS Additional order review: Laboratory Results 07/10/19 07/10/19 21:45 21:45 Sodium 137 Potassium 4.3 Chloride 101 Carbon Dioxide 27 Anion Gap 9 BUN 11.0 Creatinine 0.8 Est GFR (CKD-EPI)AfAm 104.65 Est GFR (CKD-EPI)NonAf 90.30 Random Glucose 104 Calcium 9.0 Total Bilirubin 0.9 AST 24 ALT 17 Alkaline Phosphatase 87 Total Protein 7.5 Albumin 3.8 Lipase 271 07/10/19 21:45 RBC 3.88 MCV 100.1 H MCHC 32.9 RDW 15.1 MPV 8.3 Neutrophils % 60.6 Lymphocytes % 28.8 Monocytes % 8.4 Eosinophils % 1.6 Basophils % 0.6 - RADIOLOGY Radiology Studies Ordered: Category Date Time Status ABDOMEN & PELVIS CT WITH CONTR [CT] Stat CT Scan 07/10/19 21:34 Taken ABDOMEN FLAT & UPRIGHT [RAD] Stat Radiology 07/10/19 21:33 Taken Medical Decision Making - Medical Decision Making 07/11/19 05:04 abd pain s/p gastric bypass with hx of internal hernias requiring operative reduction CT reviewed--no cause fo acute pain identified labs reviewed without significant abnormality at the time of discharge, abd nontendner, comfortable a/p non specific abd pain post gastric bypass stable for dc with general surgery fu Discharge - Discharge Information Problems reviewed: Yes Clinical Impression/Diagnosis: Abdominal pain Qualifiers: Abdominal location: generalized Qualified Code(s): R10.84 - Generalized abdominal pain Condition: Stable Disposition: HOME - Admission No - Follow up/Referral - Patient Discharge Instructions Patient Printed Discharge Instructions: DI for Abdominal Pain-Adult - Post Discharge Activity Work/Back to School Note: Back to Work
[2019-07-11 01:05] VITALS: BP 152/108
== END 2019-07-11 01:07 | disposition home or self-care (01) ==
LOC: FER 20:59
DX: R10.84 Generalized abdominal pain (principal); Z88.8 Allergy status to other drugs, medicaments and biological substances; Z91.013 Allergy to seafood; Z98.84 Bariatric surgery status; Z87.891 Personal history of nicotine dependence; Z98.890 Other specified postprocedural states; J45.909 Unspecified asthma, uncomplicated; K21.9 Gastro-esophageal reflux disease without esophagitis; I10 Essential (primary) hypertension; F32.9 Major depressive disorder, single episode, unspecified
CPT/HCPCS: 36415; 74019-TC-FY; 74177-TC; 80053; 83690; 85025; 99282-25

== ENCOUNTER 2019-07-22 11:27 | Emergency (ER) | payer BC ==
[2019-07-22 11:34] VITALS: BP 130/99; PULSE 97; TEMP 98.7; BMI 25.2
--- NOTE | 2019-07-22 12:04 | PDOC ---
Attending Attestation - Resident Resident Name: KaplanRicky - ED Attending Attestation I have performed the following: I have examined & evaluated the patient, The case was reviewed & discussed with the resident, I agree w/resident's findings & plan, Exceptions are as noted - HPI HPI: 07/22/19 14:38 07/22/19 12:33 Complains of left lower quadrant pain, sudden onset yesterday, no nausea vomiting diarrhea, small bowel movement today and passing gas. History of recurrent abdominal pain on both the right and left sides of the pelvis, multiple CAT scans in the past have shown only ovarian cysts bilaterally. This is likely the etiology again. - Physicial Exam PE: 07/22/19 12:35 Physical exam: No fever. Vital signs normal. Patient resting comfortably and does not appear to be in pain or any other acute distress. No pallor or icterus. ENT clear Lungs clear CV normal Abdomen nondistended. Bowel sounds normal. Soft without mass or organomegaly. Despite vigorous palpation of the left and right pelvic areas, there was no significant tenderness elicited, no suggestion of guarding or rebound. 07/22/19 12:37 - Physicial Exam PE: 07/22/19 14:38 See above - Medical Decision Making 07/22/19 14:38 Assessment: Recurrent ovarian cysts, with pain. Compounded by social stress. No evidence of UTI or infection. 07/22/19 14:39 Plan: Nonsteroidal analgesics, reassure, [employer] follow-up. Patient much more comfortable at discharge to follow-up as directed, fully ambulatory and in no significant pain.
--- NOTE | 2019-07-22 12:15 | PDOC ---
History of Present Illness - General Chief Complaint: Pain Stated Complaint: ABD PAIN Time Seen by Provider: 07/22/19 11:33 History Source: Patient Exam Limitations: No Limitations - History of Present Illness Initial Comments: 07/23/19 18:08 HPI: 44F PMH HTN, RA, Asthma, h/o gastric bypass c/o 1 day of left sided constant nonradiating abdominal pain worse at the LUQ. Pt states she has a specific diet to follow s/p gastric bypass but due to financial hardship is not able to maintain recommended diet. Took laxatives yesterday to promote BMs (small, loose , nonbloody). Endorses nausea and loss of appetite. Denies vomiting, f/c, cp/ sob. LMP 2 years ago, s/p uterine cauterization for abnormal uterine bleeding. PSH: 10/2018 gastric bypass, 01/2019 emergency surgery for obstruction related to bypass Endorses etoh and smoking, denies drug use. Past History - Past Medical History Allergies/Adverse Reactions: Allergies Allergy/AdvReac Type Severity Reaction Status Date / Time shellfish derived Allergy Intermediate Hives Verified 07/10/19 21:13 bupropion HCl Allergy Rash Verified 07/10/19 21:13 [From Wellbutrin] Home Medications: Ambulatory Orders Albuterol Sulfate [Proair Respiclick] 90 mcg IH PRN PRN 05/10/17 Zolpidem Tartrate [Ambien] 10 mg PO HS 06/04/17 cloNIDine HCL [Catapres -] 0.1 mg PO BID 06/11/17 Clonazepam [Klonopin] 2 mg PO BID 07/20/17 Amlodipine Besylate [Norvasc -] 10 mg PO DAILY 09/23/18 Budesonide/Formeterol Fumarate [SYMBICORT 160/4.5mcg -] 1 inh PO BID 10/28/18 Etanercept [Enbrel] 50 mg SQ WEEKLY 10/28/18 Diphenhydramine HCl [Benadryl -] 100 mg PO DAILY 03/09/19 Esomeprazole Magnesium [Nexium 24Hr] 40 mg PO DAILY 03/09/19 Mag Hydrox/Al Hydrox/Simeth [Mylanta *Suspension*] 30 ml PO Q6H PRN #28 cup Polyethylene Glycol 3350 [Miralax (For Daily Use) -] 17 gm PO DAILY #1 bottle Sertraline HCl 100 mg PO HS 07/22/19 Anemia: Yes Asthma: Yes (USES INHALER,PROAIR, was unable to refill inhaler) Cancer: No Cardiac Disorders: No CVA: No COPD: No CHF: No Dementia: No Diabetes: No GI Disorders: Yes (GERD) Disorders: No HTN: Yes Hypercholesterolemia: No Liver Disease: No Psychiatric Problems: Yes (DEPRESSION) Seizures: No Thyroid Disease: No - Surgical History Abdominal Surgery: Yes (VERTICAL SLEEVE GASTRECTOMY 2011, ABDOMINOPLASTY/AND REVISION, LIPO X2,) Appendectomy: No Cardiac Surgery: No Cholecystectomy: No GI Surgery: Yes (GASTRIC BYPASS 2 WEEKS AGO) Lung Surgery: No Neurologic Surgery: No Orthopedic Surgery: Yes (RIGHT KNEE, SHOULDER SX, WRIST SX) - Psycho Social/Smoking Cessation Hx Smoking Status: No Smoking History: Current every day smoker Years of Tobacco Use: 24 Have you smoked in the past 12 months: No Number of Cigarettes Smoked Daily: 20 If you are a former smoker, when did you quit?: 10/14/18 Information on smoking cessation initiated: Yes 'Breaking Loose' booklet given: 05/05/19 Hx Alcohol Use: (3x/wk) Drug/Substance Use Hx: No Substance Use Type: None Hx Substance Use Treatment: No Review of Systems - Review of Systems Able to Perform ROS?: Yes Comments:: 07/23/19 18:09 ROS: CONSTITUTIONAL: Denies F / C RESP: Denies SOB CARD: Denies chest pain GI: Endorses abdominal pain and nausea. Decreased appetite. Denies bloody stool : Denies dysuria, frequency Is the patient limited Korean proficient: No *Physical Exam - Vital Signs Last Vital Signs Temp Pulse Resp BP Pulse Ox 98.7 F 97 H 18 130/99 100 07/22/19 11:27 07/22/19 11:27 07/22/19 11:27 07/22/19 11:27 07/22/19 11:27 - Physical Exam Comments: 07/23/19 18:09 PE: GEN: AAOx3, mild distress HEENT: NC/AT. No facial asymmetry. Normal voice. Supple neck w/ FROM. CV: S1/S2, RRR, no m/r/g LUNG: CTAB, no wheezes, crackles, rales, rhonchi. GI: +TTP of LUQ. soft, nd, +BS, no guarding, no rebound. No masses. Well healed surgical scars. EXTREMITIES: No obvious deformities of all extremities. SKIN: warm, dry, normal turgor PSYCH: normal mood and affect NEURO: Moving all extremities well ED Treatment Course - LABORATORY CBC & Chemistry Diagram: 07/22/19 12:55 07/22/19 12:55 Medical Decision Making - Medical Decision Making 07/22/19 12:01 MDM: 44F w/ abdominal pain DDx - likely ovarian cyst. Unlikely but considered diveriticulis, colitis, pancreatitis. - CBC, CMP, UA 07/22/19 13:14 UA neg f/u labs 07/22/19 14:04 Notified by RN that lab is having technical issues but urine neg. Discharge - Discharge Information Problems reviewed: Yes Clinical Impression/Diagnosis: Abdominal pain Qualifiers: Abdominal location: left upper quadrant Qualified Code(s): R10.12 - Left upper quadrant pain Condition: Stable Disposition: HOME - Admission No - Additional Discharge Information Prescriptions: Polyethylene Glycol 3350 [Miralax (For Daily Use) -] 17 gm PO DAILY #1 bottle - Follow up/Referral - Patient Discharge Instructions Patient Printed Discharge Instructions: DI for Ovarian Cyst, DI for Abdominal Pain-Adult Additional Instructions: You were treated in the Emergency Department. We sent a prescription to your pharmacy, please pick it up and take as directed. [facility] can help set you up with a psychotherapist social worker. Our staff has spoken to you regarding how to get in contact with the clinic and how to start the process. Follow up with your MOLDING ASSOCIATE regarding your visit to the ED today in the next 7 days. IMMEDIATELY return to the ED if you experience worsening of your symptoms, new symptoms, or anything that concerns you . - Post Discharge Activity Work/Back to School Note: Back to Work
[2019-07-22 12:58] LABS: URINE APPEARANCE CLEAR; URINE BILIRUBIN NEGATIVE (NEGATIVE); URINE COLOR YELLOW; URINE GLUCOSE (UA) NEGATIVE (NEGATIVE); URINE KETONE TRACE (NEGATIVE)
[2019-07-22 12:59] LABS: PH,URINE 5.5 (4.5-8); URINE LEUK ESTERASE NEGATIVE (NEGATIVE); URINE NITRITE NEGATIVE (NEGATIVE); URINE PROTEIN 1+ (NEGATIVE); URINE UROBILINOGEN 0.2 (0.2-1.0)
[2019-07-22 13:00] LABS: EPI CELLS MODERATE /HPF; URINE RBC 0-2 /hpf (0-4)
[2019-07-22 13:13] LABS: BASO % 3.3 % (0-2.0); EOS % 2.1 % (0-4.5); HEMATOCRIT 40.2 % (32.4-45.2); HEMOGLOBIN 13.1 GM/dl (10.7-15.3); LYMPH % 31.6 % (8-40); MCHC 32.7 g/dl (32.0-36.0); MEAN CELL VOLUME 100.8 fl (80-96); MONO % 10.5 % (3.8-10.2); NEUT % 52.5 % (42.8-82.8); PLATELET COUNT 349 K/MM3 (134-434); RBC 3.98 M/mm3 (3.60-5.2); RDW 13.9 % (11.6-15.6)
[2019-07-22] MEDS ORDERED: ACETAMINOPHEN 1000 MG/100 ML VIAL (NON FORMULARY) IVPB ONE (13:24)
[2019-07-22] MEDS ORDERED: ACETAMINOPHEN INJECTION 100 ML IVPB ONE (13:26)
[2019-07-22 13:29] LABS: ALBUMIN 3.4 g/dl (3.4-5.0); BILIRUBIN,TOTAL 0.3 mg/dl (0.2-1); CALCIUM 8.5 mg/dl (8.5-10); CREATININE 0.8 mg/dl (0.55-1.3); POTASSIUM 3.8 mmol/L (3.5-5.1); TOT PROT 6.9 g/dl (6.4-8.2)
--- NOTE | 2019-07-22 16:02 | EKG ---
Test Reason : Blood Pressure : / mmHG Vent. Rate : 074 BPM Atrial Rate : 074 BPM P-R Int : 138 ms QRS Dur : 076 ms QT Int : 400 ms P-R-T Axes : 036 -20 023 degrees QTc Int : 444 ms NORMAL SINUS RHYTHM NORMAL ECG WHEN COMPARED WITH ECG OF 05-MAY-2019 00:15, NO SIGNIFICANT CHANGE WAS FOUND Confirmed by LUPE CARUSO, PETER ([id number]) on 07/22/2019 4:02:16 PM Referred By: RORO GALVEZ Confirmed By:PETER ANDRADE MD
== END 2019-07-22 14:29 | disposition home or self-care (01) ==
LOC: FER 11:27
PROC: 3E033NZ Introduction of Analgesics, Hypnotics, Sedatives into Peripheral Vein, Percutaneous Approach (ICD-10-PCS; principal; 2019-07-22)
DX: R10.12 Left upper quadrant pain (principal); Z98.84 Bariatric surgery status; Z91.013 Allergy to seafood; Z88.8 Allergy status to other drugs, medicaments and biological substances; F17.210 Nicotine dependence, cigarettes, uncomplicated; Z98.890 Other specified postprocedural states; F32.9 Major depressive disorder, single episode, unspecified; I10 Essential (primary) hypertension; K21.9 Gastro-esophageal reflux disease without esophagitis; J45.909 Unspecified asthma, uncomplicated; D64.9 Anemia, unspecified
CPT/HCPCS: 36415; 80053; 81003; 83690; 84703; 85025; 87086; 93005; 99284-25; J0131

== ENCOUNTER 2019-08-07 19:21 | Emergency (ER) | payer BC ==
[2019-08-07 19:39] VITALS: BP 114/86; PULSE 112; TEMP 98.3; BMI 24.5
[2019-08-07] MEDS ORDERED: PANTOPRAZOLE SODIUM 40 MG VIAL ONE (20:06)
[2019-08-07] MEDS ORDERED: PANTOPRAZOLE SODIUM 40 MG VIAL IVPB ONE (20:07)
[2019-08-07 20:27] LABS: HEMATOCRIT 33.3 % (32.4-45.2); MCH 32.5 pg (25.7-33.7); MEAN CELL VOLUME 98.6 fl (80-96); MEAN PLT VOLUME 8.2 fl (7.5-11.1); PLATELET COUNT 120 K/MM3 (134-434); RBC 3.37 M/mm3 (3.60-5.2); RDW 13.7 % (11.6-15.6); WHITE BLOOD COUNT 4.8 K/mm3 (4.0-10.8)
[2019-08-07 20:30] LABS: ALBUMIN 3.4 g/dl (3.4-5.0); BILIRUBIN,TOTAL 0.1 mg/dl (0.2-1); CALCIUM 8.4 mg/dl (8.5-10); CREATININE 0.9 mg/dl (0.55-1.3); TOT PROT 7.1 g/dl (6.4-8.2)
[2019-08-07] MEDS ORDERED: POTASSIUM CHLORIDE TABS 20 MEQ TABLET.ER (FP) PO ONE ×2 (20:48→20:49)
[2019-08-07 21:15] LABS: PLATELET ESTIMATE SLT DECREASE
--- NOTE | 2019-08-08 00:15 | PDOC ---
Documentation entered by Aliya Pena SCRIBE, acting as scribe for Jacqueline Turner MD. Jacqueline Turner MD: This documentation has been prepared by the kathleeneBecky Brenda, SCRIBE, under my direction and personally reviewed by me in its entirety. I confirm that the documentation accurately reflects all work, treatment, procedures, and medical decision making performed by me. History of Present Illness - General Chief Complaint: Lightheaded Stated Complaint: HEART RACING, DIZZYNESS SINCE WEDNESDAY History Source: Patient Exam Limitations: No Limitations - History of Present Illness Initial Comments: 08/07/19 19:50 The patient is a 44 year old female, with a significant PMH of Depression, HTN, RA, Asthma and h/o of gastric bypass, who presents to the emergency department with 2 episodes of tachycardia accompanied by dizziness and weakness. Patient states that prior to her gastric bypass in October of 2018, she also experienced these symptoms. She states that since the surgery, Wednesday (08/05/19 ) was her first time having an episode of tachycardia, weakness and dizziness, which lasted a few minutes, and subsided. She reports that today while walking around the [employer] at a regular pace, she again experienced those same symptoms, prompting her arrival to the ED. Patient denies any aggravating factors. She also states that she has been taking albuterol excessively, due to symptoms of dry cough and wheezing after smoking tobacco. Patient also admits to recently being suspended from work, and has been mostly home, in her bed, stating that she hasnt felt emotionally well. The patient denies chest pain. Denies fever, chills, nausea, vomiting, diarrhea and constipation. Denies any urinary symptoms. Allergies: Shellfish derived, bupropion HCl Past surgical history: Vertical sleeve gastrectomy (2011), abdominoplasty and revision, Lipo x2, gastric bypass Social history: History of tobacco use (pack per day). Denies alcohol use, or illicit drug use. PCP: Zane Mckoy Past History - Past Medical History Allergies/Adverse Reactions: Allergies Allergy/AdvReac Type Severity Reaction Status Date / Time shellfish derived Allergy Intermediate Hives Verified 08/07/19 19:24 bupropion HCl Allergy Rash Verified 08/07/19 19:24 [From Wellbutrin] Home Medications: Ambulatory Orders Albuterol Sulfate [Proair Respiclick] 90 mcg IH PRN PRN 05/10/17 Zolpidem Tartrate [Ambien] 10 mg PO HS 06/04/17 cloNIDine HCL [Catapres -] 0.1 mg PO BID 06/11/17 Clonazepam [Klonopin] 2 mg PO BID 07/20/17 Amlodipine Besylate [Norvasc -] 10 mg PO DAILY 09/23/18 Budesonide/Formeterol Fumarate [SYMBICORT 160/4.5mcg -] 1 inh PO BID 10/28/18 Etanercept [Enbrel] 50 mg SQ WEEKLY 10/28/18 Diphenhydramine HCl [Benadryl -] 100 mg PO DAILY 03/09/19 Esomeprazole Magnesium [Nexium 24Hr] 40 mg PO DAILY 03/09/19 Mag Hydrox/Al Hydrox/Simeth [Mylanta *Suspension*] 30 ml PO Q6H PRN #28 cup Polyethylene Glycol 3350 [Miralax (For Daily Use) -] 17 gm PO DAILY #1 bottle Sertraline HCl 100 mg PO HS 07/22/19 Anemia: Yes Asthma: Yes (USES INHALER,PROAIR, was unable to refill inhaler) Cancer: No Cardiac Disorders: No CVA: No COPD: No CHF: No Dementia: No Diabetes: No GI Disorders: Yes (GERD) Disorders: No HTN: Yes Hypercholesterolemia: No Liver Disease: No Psychiatric Problems: Yes (DEPRESSION) Seizures: No Thyroid Disease: No - Surgical History Abdominal Surgery: Yes (VERTICAL SLEEVE GASTRECTOMY 2012, ABDOMINOPLASTY/AND REVISION, LIPO X2,) Appendectomy: No Cardiac Surgery: No Cholecystectomy: No GI Surgery: Yes (GASTRIC BYPASS 2 WEEKS AGO) Lung Surgery: No Neurologic Surgery: No Orthopedic Surgery: Yes (RIGHT KNEE, SHOULDER SX, WRIST SX) - Psycho Social/Smoking Cessation Hx Smoking Status: No Smoking History: Current every day smoker Years of Tobacco Use: 24 Have you smoked in the past 12 months: No Number of Cigarettes Smoked Daily: 20 If you are a former smoker, when did you quit?: 10/14/18 'Breaking Loose' booklet given: 05/05/19 Hx Alcohol Use: (3x/wk) Drug/Substance Use Hx: No Substance Use Type: None Hx Substance Use Treatment: No Review of Systems - Review of Systems Able to Perform ROS?: Yes Comments:: 08/07/19 19:52 GENERAL/CONSTITUTIONAL: (+) Weakness. (+) Dizziness. No fever or chills. No weakness. HEAD, EYES, EARS, NOSE AND THROAT: No change in vision. No ear pain or discharge. No sore throat. CARDIOVASCULAR: (+) Tachycardia. No chest pain or shortness of breath. RESPIRATORY: No cough, wheezing, or hemoptysis. GASTROINTESTINAL: No nausea, vomiting, diarrhea or constipation. GENITOURINARY: No dysuria, frequency, or change in urination. MUSCULOSKELETAL: No joint or muscle swelling or pain. No neck or back pain. SKIN: No rash NEUROLOGIC: No headache, vertigo, loss of consciousness, or change in strength/ sensation. ENDOCRINE: No increased thirst. No abnormal weight change. HEMATOLOGIC/LYMPHATIC: No anemia, easy bleeding, or history of blood clots. ALLERGIC/IMMUNOLOGIC: No hives or skin allergy. *Physical Exam - Vital Signs Last Vital Signs Temp Pulse Resp BP Pulse Ox 98.3 F 112 H 16 114/86 100 08/07/19 19:31 08/07/19 19:31 08/07/19 19:31 08/07/19 19:31 08/07/19 19:31 - Physical Exam Comments: 08/07/19 20:21 GENERAL: Awake, alert, and fully oriented, in no acute distress HEAD: No signs of trauma EYES: PERRLA, EOMI, sclera anicteric, conjunctiva clear ENT: Auricles normal inspection, hearing grossly normal, nares patent, oropharynx clear without exudates. Moist mucosa NECK: Normal ROM, supple, no lymphadenopathy, JVD, or masses LUNGS: (+) Scattered expiratory wheezing bilaterally. No crackles HEART: Regular rate and rhythm, normal S1 and S2, no murmurs, rubs or gallops ABDOMEN: Soft, nontender, normoactive bowel sounds. No guarding, no rebound. No masses EXTREMITIES: Normal range of motion, no edema. No clubbing or cyanosis. No cords, erythema, or tenderness NEUROLOGICAL: Cranial nerves II through XII grossly intact. Normal speech. SKIN: Warm, Dry, normal turgor, no rashes or lesions noted. ED Treatment Course - LABORATORY CBC & Chemistry Diagram: 08/07/19 20:00 08/07/19 19:30 - ADDITIONAL ORDERS Additional order review: Laboratory Results 08/07/19 08/07/19 19:30 19:30 Sodium 136 Potassium 3.0 L Chloride 101 Carbon Dioxide 22 Anion Gap 13 BUN 8.0 Creatinine 0.9 Est GFR (CKD-EPI)AfAm 90.76 Est GFR (CKD-EPI)NonAf 78.31 Random Glucose 108 H Calcium 8.4 L Total Bilirubin 0.1 L AST 25 ALT 16 Alkaline Phosphatase 89 Creatine Kinase 39 Troponin I < 0.03 Total Protein 7.1 Albumin 3.4 08/07/19 20:00 RBC 3.37 L MCV 98.6 H MCHC 33.0 RDW 13.7 MPV 8.2 Neutrophils % No Result Required. Lymphocytes % No Result Required. - Medications Given in the ED: ED Medications Discontinued Medications Generic Name Dose Route Start Last Admin Trade Name Freq PRN Reason Stop Dose Admin Pantoprazole Sodium 40 mg 08/07/19 20:07 08/07/19 20:18 Protonix Iv IVPB 08/07/19 20:08 40 mg ONCE ONE Administration Potassium Chloride 40 meq 08/07/19 20:48 08/07/19 20:54 K-Dur - PO 08/07/19 20:49 40 meq ONCE ONE Administration Medical Decision Making - Medical Decision Making As noted above, this 44-year-old woman with a history of asthma, rheumatoid arthritis, iron deficiency anemia presents with few day history of generalized weakness and tachycardia with minimal activity. She has no chest pain. She admits to using more than usual amounts of albuterol over the last several days because of chest congestion. Also, in the last few weeks, she has stopped taking her iron supplementation. Exam as noted above. Twelve-lead electrocardiogram is performed: Normal sinus rhythm at [address] or T wave abnormalities noted. Waveforms, intervals and axis are all normal. No acute cardiac arrhythmia noted. CBC/chemistry profile/troponin sent. Troponin is not elevated CBC notable for significant drop in her hemoglobin/hematocrit since last tested on 07/24 (dropping from 13.1/40.2 to 11/33.3) Chemistry profile notable for potassium of 3.0 (patient given 40 mEq Potassium chloride PO in the form of K Dur ) Results discussed with the patient: She should resume her iron supplementation as previously prescribed. Smoking cessation was discussed with her; she does have nicotine patches at home and will begin using them again. She has not been seen by her PMD, Dr. Larios recently and will make an appointment within the next few days for follow-up. Meanwhile, if she has persistent, severe tachycardia /severe weakness/shortness of breath or chest pain, she should return to the ER Discharge - Discharge Information Problems reviewed: Yes Clinical Impression/Diagnosis: Tachycardia Condition: Stable Disposition: HOME - Follow up/Referral Referrals: Zane Mckoy MD [Staff Physician] - 3 days - Patient Discharge Instructions Patient Printed Discharge Instructions: DI for Tachycardia Additional Instructions: resume iron supplementation continue medications as prescribed avoid smoking as discussed followup with Dr Mckoy within the next 3-4 days Return to ER if you have extreme weakness, persistent fast heartbeat, shortness of breath or chest pain - Post Discharge Activity
--- NOTE | 2019-08-08 11:20 | EKG ---
Test Reason : Blood Pressure : / mmHG Vent. Rate : 094 BPM Atrial Rate : 094 BPM P-R Int : 136 ms QRS Dur : 086 ms QT Int : 374 ms P-R-T Axes : 021 -21 021 degrees QTc Int : 467 ms NORMAL SINUS RHYTHM MINIMAL VOLTAGE CRITERIA FOR LVH, MAY BE NORMAL VARIANT BORDERLINE ECG WHEN COMPARED WITH ECG OF 22-JUL-2019 13:51, NO SIGNIFICANT CHANGE WAS FOUND Confirmed by MD Richard, Herman ([id number]) on 08/08/2019 11:19:55 AM Referred By: Confirmed By:Herman Ramos MD
== END 2019-08-07 21:17 | disposition home or self-care (01) ==
LOC: FER 19:21
PROC: 3E033GC Introduction of Other Therapeutic Substance into Peripheral Vein, Percutaneous Approach (ICD-10-PCS; principal; 2019-08-07)
DX: R00.0 Tachycardia, unspecified (principal); M06.9 Rheumatoid arthritis, unspecified; D50.8 Other iron deficiency anemias; Z91.013 Allergy to seafood; Z88.8 Allergy status to other drugs, medicaments and biological substances; F17.210 Nicotine dependence, cigarettes, uncomplicated; Z98.84 Bariatric surgery status; K21.9 Gastro-esophageal reflux disease without esophagitis; I10 Essential (primary) hypertension; F32.9 Major depressive disorder, single episode, unspecified; J45.909 Unspecified asthma, uncomplicated
CPT/HCPCS: 36415; 80053; 82550; 84443; 84484; 85025; 93005; 99282-25

== ENCOUNTER 2019-08-26 07:37 | Emergency (ER) | payer BC ==
--- NOTE | 2019-08-26 07:44 | PDOC ---
History of Present Illness - General Chief Complaint: Pain Stated Complaint: fall,left rib pain Time Seen by Provider: 08/26/19 07:43 - History of Present Illness Initial Comments: 08/26/19 10:16 Chief complaint: Pain left lower rib cage HPI: Patient fell, struck the left lower rib cage, has pain along the costal margin, worse with inspiration and movement of the torso. Review of systems: No shortness of breath, lightheadedness or dizziness, nausea , diaphoresis, vomiting, abdominal pain. Remainder of systems reviewed and negative Past medical history: Multiple medical problems, no active symptoms at present Social/family history reviewed from old chart. Physical exam: Alert oriented well-developed well-nourished no acute distress cheerful and cooperative Afebrile, vital signs normal Bilateral breath sounds full, symmetric, without wheezes rales or rhonchi. There is pain with deep inspiration lower left parasternal rib cage. No tachypnea or dyspnea. Point tenderness over the lower costal cartilages. No deformity or crepitus palpated CV S1-S2 normal without murmur rub or gallop pulses full and symmetric no JVD or edema no bruits Abdomen nondistended, bowel sounds normal. Soft without mass tenderness organomegaly. No CVAT Impression: Possible nondisplaced rib fracture or cartilaginous displacement. No sign of injury to the lung or cardiovascular system. No sign of abdominal injury. Plan: Symptomatic treatment, follow-up if symptoms worsen or new symptoms develop. Past History - Past Medical History Allergies/Adverse Reactions: Allergies Allergy/AdvReac Type Severity Reaction Status Date / Time shellfish derived Allergy Intermediate Hives Verified 08/26/19 07:38 bupropion HCl Allergy Rash Verified 08/26/19 07:38 [From Wellbutrin] Home Medications: Ambulatory Orders Albuterol Sulfate [Proair Respiclick] 90 mcg IH PRN PRN 05/10/17 Zolpidem Tartrate [Ambien] 10 mg PO HS 06/04/17 cloNIDine HCL [Catapres -] 0.1 mg PO BID 06/11/17 Clonazepam [Klonopin] 2 mg PO BID 07/20/17 Amlodipine Besylate [Norvasc -] 10 mg PO DAILY 09/23/18 Budesonide/Formeterol Fumarate [SYMBICORT 160/4.5mcg -] 1 inh PO BID 10/28/18 Etanercept [Enbrel] 50 mg SQ WEEKLY 10/28/18 Diphenhydramine HCl [Benadryl -] 100 mg PO DAILY 03/09/19 Esomeprazole Magnesium [Nexium 24Hr] 40 mg PO DAILY 03/09/19 Mag Hydrox/Al Hydrox/Simeth [Mylanta *Suspension*] 30 ml PO Q6H PRN #28 cup Polyethylene Glycol 3350 [Miralax (For Daily Use) -] 17 gm PO DAILY #1 bottle Sertraline HCl 100 mg PO HS 07/22/19 Anemia: Yes Asthma: Yes (USES INHALER,PROAIR, was unable to refill inhaler) Cancer: No Cardiac Disorders: No CVA: No COPD: No CHF: No Dementia: No Diabetes: No GI Disorders: Yes (GERD) Disorders: No HTN: Yes Hypercholesterolemia: No Liver Disease: No Psychiatric Problems: Yes (DEPRESSION) Seizures: No Thyroid Disease: No - Surgical History Abdominal Surgery: Yes (VERTICAL SLEEVE GASTRECTOMY 2012, ABDOMINOPLASTY/AND REVISION, LIPO X2,) Appendectomy: No Cardiac Surgery: No Cholecystectomy: No GI Surgery: Yes (GASTRIC BYPASS 2 WEEKS AGO) Lung Surgery: No Neurologic Surgery: No Orthopedic Surgery: Yes (RIGHT KNEE, SHOULDER SX, WRIST SX) - Psycho Social/Smoking Cessation Hx Smoking Status: No Smoking History: Current every day smoker Years of Tobacco Use: 24 Have you smoked in the past 12 months: No Number of Cigarettes Smoked Daily: 20 If you are a former smoker, when did you quit?: 10/14/18 'Breaking Loose' booklet given: 05/05/19 Hx Alcohol Use: (3x/wk) Drug/Substance Use Hx: No Substance Use Type: None Hx Substance Use Treatment: No Discharge - Discharge Information Problems reviewed: Yes Clinical Impression/Diagnosis: Costochondral pain Condition: Stable Disposition: HOME - Admission No - Follow up/Referral - Patient Discharge Instructions Patient Printed Discharge Instructions: DI for Costochondritis Additional Instructions: Rest, no heavy exertion or work with the upper body until pain subsides. Ibuprofen as needed. Gentle ice massage may help as well. Follow-up if no improvement 5 to 7 days primary physician. - Post Discharge Activity
[2019-08-26 07:56] VITALS: BP 137/95; PULSE 81; TEMP 98.8; BMI 25.0
== END 2019-08-26 08:15 | disposition home or self-care (01) ==
LOC: FER 07:37
DX: M94.0 Chondrocostal junction syndrome [Tietze] (principal); F17.210 Nicotine dependence, cigarettes, uncomplicated; K21.9 Gastro-esophageal reflux disease without esophagitis; F32.9 Major depressive disorder, single episode, unspecified; I10 Essential (primary) hypertension; Z98.84 Bariatric surgery status
CPT/HCPCS: 99282-25

== ENCOUNTER 2019-09-20 12:59 | Emergency (ER) | payer BC ==
[2019-09-20] MEDS ORDERED: FLUCONAZOLE 150 MG TABLET PO ONE ×2 (13:11→13:16)
[2019-09-20 13:16] VITALS: BP 101/54; PULSE 70; TEMP 98.3; BMI 25.0
--- NOTE | 2019-09-20 13:18 | PDOC ---
History of Present Illness - General Chief Complaint: Oral Ulcers Stated Complaint: THRUSH Time Seen by Provider: 09/20/19 13:01 History Source: Patient Exam Limitations: No Limitations - History of Present Illness Initial Comments: 09/20/19 13:12 44 y/o female with thrush today. Started yesterday, noticing white patches on tongue. Hurts to swallow. No fever or chills. No SOB, chest pain. Takes medication that lowers immune system for RA. Is this a multiple visit Asthma Patient?: No Past History - Past Medical History Allergies/Adverse Reactions: Allergies Allergy/AdvReac Type Severity Reaction Status Date / Time shellfish derived Allergy Intermediate Hives Verified 08/26/19 07:38 bupropion HCl Allergy Rash Verified 08/26/19 07:38 [From Wellbutrin] Home Medications: Ambulatory Orders Albuterol Sulfate [Proair Respiclick] 90 mcg IH PRN PRN 05/10/17 Zolpidem Tartrate [Ambien] 10 mg PO HS 06/04/17 cloNIDine HCL [Catapres -] 0.1 mg PO BID 06/11/17 Clonazepam [Klonopin] 2 mg PO BID 07/20/17 Amlodipine Besylate [Norvasc -] 10 mg PO DAILY 09/23/18 Budesonide/Formeterol Fumarate [SYMBICORT 160/4.5mcg -] 1 inh PO BID 10/28/18 Etanercept [Enbrel] 50 mg SQ WEEKLY 10/28/18 Diphenhydramine HCl [Benadryl -] 100 mg PO DAILY 03/09/19 Esomeprazole Magnesium [Nexium 24Hr] 40 mg PO DAILY 03/09/19 Mag Hydrox/Al Hydrox/Simeth [Mylanta *Suspension*] 30 ml PO Q6H PRN #28 cup Polyethylene Glycol 3350 [Miralax (For Daily Use) -] 17 gm PO DAILY #1 bottle Sertraline HCl 100 mg PO HS 07/22/19 Fluconazole 200 mg PO DAILY #3 tablet 09/20/19 Nystatin/Dpha/Lido/Sucrafate [Nystatin Mouth Rinse *Df Formula*] 5 ml MM Q6HPO # 120 bottle 09/20/19 Anemia: Yes Asthma: Yes (USES INHALER,PROAIR, was unable to refill inhaler) Cancer: No Cardiac Disorders: No CVA: No COPD: No CHF: No Dementia: No Diabetes: No GI Disorders: Yes (GERD) Disorders: No HTN: Yes Hypercholesterolemia: No Liver Disease: No Psychiatric Problems: Yes (DEPRESSION) Seizures: No Thyroid Disease: No - Surgical History Abdominal Surgery: Yes (VERTICAL SLEEVE GASTRECTOMY 2011, ABDOMINOPLASTY/AND REVISION, LIPO X2,) Appendectomy: No Cardiac Surgery: No Cholecystectomy: No GI Surgery: Yes (GASTRIC BYPASS 2 WEEKS AGO) Lung Surgery: No Neurologic Surgery: No Orthopedic Surgery: Yes (RIGHT KNEE, SHOULDER SX, WRIST SX) - Psycho Social/Smoking Cessation Hx Smoking Status: No Smoking History: Current every day smoker Years of Tobacco Use: 24 Have you smoked in the past 12 months: No Number of Cigarettes Smoked Daily: 20 If you are a former smoker, when did you quit?: 10/14/18 'Breaking Loose' booklet given: 05/05/19 Hx Alcohol Use: (3x/wk) Drug/Substance Use Hx: No Substance Use Type: None Hx Substance Use Treatment: No Review of Systems - Review of Systems Able to Perform ROS?: Yes Is the patient limited Bhutanese proficient: No Constitutional: No: Chills, Fever Respiratory: No: Cough, Shortness of Breath Cardiac (ROS): No: Chest Pain ABD/GI: No: Nausea, Vomiting Musculoskeletal: No: Back Pain Integumentary: No: Rash All Other Systems: Reviewed and Negative *Physical Exam - Physical Exam General Appearance: Yes: Nourished, Appropriately Dressed. No: Apparent Distress HEENT: positive: EOMI, FEI, Normal Voice. negative: Normal ENT Inspection ( white patches on tongue noted no erythema or swelling), Pharynx Normal ( candidiasis noted), Tonsillar Exudate, Tonsillar Erythema, Nasal Congestion, Rhinorrhea Neck: positive: Trachea midline, Normal Thyroid, Supple. negative: Tender, Rigid Respiratory/Chest: positive: Lungs Clear, Normal Breath Sounds. negative: Chest Tender, Respiratory Distress Cardiovascular: positive: Regular Rhythm, Regular Rate, S1, S2. negative: Edema , JVD, Murmur Vascular Pulses: Femoral (R): 4+, Femoral (L): 4+, Carotid (R): 4+, Carotid (L) : 4+, Dorsalis-Pedis (R): 4+, Doralis-Pedis (L): 4+ Gastrointestinal/Abdominal: positive: Normal Bowel Sounds, Flat, Soft. negative : Tender, Organomegaly Lymphatic: negative: Adenopathy, Tenderness, Other Musculoskeletal: positive: Normal Inspection. negative: CVA Tenderness Extremity: positive: Normal Capillary Refill, Normal Inspection, Normal Range of Motion Integumentary: positive: Normal Color, Dry, Warm Neurologic: positive: therapeutic assistant II-XII NML intact, Fully Oriented, Alert, Normal Mood/ Affect, Normal Response ED Treatment Course - ADDITIONAL ORDERS Additional order review: 09/20/19 13:14 Pt presents with thrush Will start on Nystatin and Diflucan for next 3 days 1st dose Fluconozole given today If worsen return to ER Pt is in agreement with plan Discharge - Discharge Information Problems reviewed: Yes Clinical Impression/Diagnosis: Thrush, oral Condition: Good Disposition: HOME - Admission No - Follow up/Referral Referrals: Zane Mckoy MD [Primary Care Provider] - - Patient Discharge Instructions Additional Instructions: Nystatin swish and spit 4x/day for 1 week Diflucan 200mg dialy for 3 days If worsen return to ER - Post Discharge Activity
== END 2019-09-20 13:24 | disposition home or self-care (01) ==
LOC: FER 12:59
DX: B37.0 Candidal stomatitis (principal); I10 Essential (primary) hypertension; J45.909 Unspecified asthma, uncomplicated; K21.9 Gastro-esophageal reflux disease without esophagitis; F17.210 Nicotine dependence, cigarettes, uncomplicated; Z98.84 Bariatric surgery status; Z88.8 Allergy status to other drugs, medicaments and biological substances; Z91.013 Allergy to seafood
CPT/HCPCS: 99281-25

== ENCOUNTER 2019-09-23 13:10 | Emergency (ER) | payer BC ==
--- NOTE | 2019-09-23 13:28 | PDOC ---
History of Present Illness - General Chief Complaint: Oral Ulcers Stated Complaint: THRUSH Time Seen by Provider: 09/23/19 13:16 - History of Present Illness Initial Comments: 09/23/19 13:44 44yo female with hx of Depression, HTN, RA, Asthma and h/o of gastric bypass who presents for tooth pain and mouth pain. Pt dx with thrush earlier this week and given rx for diflucan and nystatin. States she used both, still with tongue and mouth pain. Pt also with a dental infection and dental caries. Pt denies f/ c. Pt is on enbrel for RA. Pt also states she is grieving because of her mother and father passing away earlier this week. 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 Pt denies collins. No neck pain. No cp/sob. No si/hi. No abd pain. No n/v/d. Pt admits to drinking alcohol daily. Pt denies all other somatic complaints. Pt has appt with dr. mckoy on wednesday and dr carrasquillo on wednesday. Pt states she follows with a psychiatrist for her ptsd and depression. Pt states she has appt with her psychiatrist for this week. Past History - Past Medical History Allergies/Adverse Reactions: Allergies Allergy/AdvReac Type Severity Reaction Status Date / Time shellfish derived Allergy Intermediate Hives Verified 09/23/19 13:12 bupropion HCl Allergy Rash Verified 09/23/19 13:12 [From Wellbutrin] Home Medications: Ambulatory Orders Albuterol Sulfate [Proair Respiclick] 90 mcg IH PRN PRN 05/10/17 Zolpidem Tartrate [Ambien] 10 mg PO HS 06/04/17 cloNIDine HCL [Catapres -] 0.1 mg PO BID 06/11/17 Clonazepam [Klonopin] 2 mg PO BID 07/20/17 Amlodipine Besylate [Norvasc -] 10 mg PO DAILY 09/23/18 Budesonide/Formeterol Fumarate [SYMBICORT 160/4.5mcg -] 1 inh PO BID 10/28/18 Etanercept [Enbrel] 50 mg SQ WEEKLY 10/28/18 Diphenhydramine HCl [Benadryl -] 100 mg PO DAILY 03/09/19 Esomeprazole Magnesium [Nexium 24Hr] 40 mg PO DAILY 03/09/19 Mag Hydrox/Al Hydrox/Simeth [Mylanta *Suspension*] 30 ml PO Q6H PRN #28 cup Polyethylene Glycol 3350 [Miralax (For Daily Use) -] 17 gm PO DAILY #1 bottle Sertraline HCl 100 mg PO HS 07/22/19 Fluconazole 200 mg PO DAILY #3 tablet 09/20/19 Nystatin/Dpha/Lido/Sucrafate [Nystatin Mouth Rinse *Df Formula*] 5 ml MM Q6HPO # 120 bottle 09/20/19 Fluconazole [Diflucan] 150 mg PO ONCE #2 tablet 09/23/19 Nystatin Oral Suspension - [Nystatin Oral Susp 117860 Units/5 ML -] 500,000 units PO Q6H #56 cup 09/23/19 Penicillin V Potassium [Pen Vee K -] 500 mg PO QID #28 tablet 09/23/19 Anemia: Yes Asthma: Yes (USES INHALER,PROAIR, was unable to refill inhaler) Cancer: No Cardiac Disorders: No CVA: No COPD: No CHF: No Dementia: No Diabetes: No GI Disorders: Yes (GERD) Disorders: No HTN: Yes Hypercholesterolemia: No Liver Disease: No Psychiatric Problems: Yes (DEPRESSION) Seizures: No Thyroid Disease: No - Surgical History Abdominal Surgery: Yes (VERTICAL SLEEVE GASTRECTOMY 2012, ABDOMINOPLASTY/AND REVISION, LIPO X2,) Appendectomy: No Cardiac Surgery: No Cholecystectomy: No GI Surgery: Yes (GASTRIC BYPASS 2 WEEKS AGO) Lung Surgery: No Neurologic Surgery: No Orthopedic Surgery: Yes (RIGHT KNEE, SHOULDER SX, WRIST SX) - Psycho Social/Smoking Cessation Hx Smoking Status: No Smoking History: Current every day smoker Years of Tobacco Use: 24 Have you smoked in the past 12 months: No Number of Cigarettes Smoked Daily: 20 If you are a former smoker, when did you quit?: 10/14/18 'Breaking Loose' booklet given: 05/05/19 Hx Alcohol Use: (3x/wk) Drug/Substance Use Hx: No Substance Use Type: None Hx Substance Use Treatment: No Review of Systems - Review of Systems Able to Perform ROS?: Yes Is the patient limited Angolan proficient: No Constitutional: No: Chills, Fever HEENTM: Yes: Mouth Pain, Dental Problems. No: Nose Congestion, Throat Pain, Difficulty Swallowing Respiratory: No: Cough, Shortness of Breath Cardiac (ROS): No: Chest Pain, Palpitations ABD/GI: No: Diarrhea, Nausea, Vomiting, Abdominal cramping : No: Burning, Dysuria Musculoskeletal: No: Back Pain Integumentary: No: Rash Neurological: No: Headache, Numbness, Paresthesia, Ataxia All Other Systems: Reviewed and Negative *Physical Exam - Vital Signs 09/23/19 13:53 Selected Entries 09/23/19 13:12 Temperature 98 F Pulse Rate 93 H Respiratory 20 Rate Blood Pressure 115/78 Blood Pressure 90 Mean O2 Sat by Pulse 100 Oximetry (%) Weight 90.718 kg - Physical Exam General Appearance: Yes: Nourished, Appropriately Dressed. No: Apparent Distress HEENT: positive: EOMI, FEI, Pharynx Normal, Other (mouth and tongue erythema, cracks at sides of mouth, R lower jaw dental caries and erythema of the gums/no abscess but infection in the gums). negative: Muffled/Hoarse voice, Pharyngeal Erythema, Tonsillar Exudate, Tonsillar Erythema, Nasal Congestion, Rhinorrhea, Excessive drooling Neck: positive: Supple Respiratory/Chest: positive: Lungs Clear, Normal Breath Sounds, Other (speaking in clear sentences). negative: Respiratory Distress Cardiovascular: positive: Regular Rhythm, Regular Rate, S1, S2. negative: Edema Gastrointestinal/Abdominal: positive: Soft. negative: Guarding, Rebound, Tenderness Musculoskeletal: positive: Normal Inspection Extremity: positive: Normal Inspection, Other (ambulatory with a steady gait). negative: Swelling, Calf Tenderness Integumentary: positive: Normal Color, Dry, Warm Neurologic: positive: Fully Oriented, Alert Medical Decision Making - Medical Decision Making 09/23/19 13:55 a/p: 44yo female with mouth pain and dental pain -dental infection on exam, no drainable abscess -erythema of tongue, no white exudates or rash -cracks at sides of her mouth -pt is nontoxic in appearance speaking in full sentences and tolerating secretions -will dc with nystatin and pen vk for infection -discussed dental follow up and keeping appts with PMD and [facility]ron for wednesday as scheduled -pt denies si/hi -states she is grieving -discussed stopping etoh and going to detox -pt stable for dc to home Discharge - Discharge Information Problems reviewed: Yes Clinical Impression/Diagnosis: Dental infection, Mouth pain Condition: Stable Disposition: HOME - Admission No - Additional Discharge Information Prescriptions: Fluconazole [Diflucan] 150 mg PO ONCE #2 tablet Nystatin Oral Suspension - [Nystatin Oral Susp 513271 Units/5 ML -] 500,000 units PO Q6H #56 cup Penicillin V Potassium [Pen Vee K -] 500 mg PO QID #28 tablet - Follow up/Referral Referrals: Zane Mckoy MD [Staff Physician] - Edi Hendrix MD [Staff Physician] - - Patient Discharge Instructions Patient Printed Discharge Instructions: DI for Dental Pain, DI for Mouth Pain, DI for Thrush Additional Instructions: Please stop drinking alcohol. Please take all medications as prescribed. Please keep your appointments as scheduled. Please consider going to detox to stop drinking alcohol and do not drink alcohol while on antibiotics. Please also see the dentist this week. Please drink plenty of fluids-water with the antibiotics. Please return to the ED with any further concerns or complaints. - Post Discharge Activity
[2019-09-23 13:41] VITALS: BP 115/78; PULSE 93; TEMP 98; BMI 32.3
[2019-09-23] MEDS ORDERED: PENICILLIN V POTASSIUM 500 MG TABLET PO ONE (13:44)
== END 2019-09-23 14:13 | disposition home or self-care (01) ==
LOC: FER 13:10
DX: K08.89 Other specified disorders of teeth and supporting structures (principal); K13.79 Other lesions of oral mucosa; Z91.013 Allergy to seafood; Z88.8 Allergy status to other drugs, medicaments and biological substances; F32.9 Major depressive disorder, single episode, unspecified; I10 Essential (primary) hypertension; M06.9 Rheumatoid arthritis, unspecified; J45.909 Unspecified asthma, uncomplicated; Z98.84 Bariatric surgery status
CPT/HCPCS: 99281-25

== ENCOUNTER 2019-10-20 12:02 | Inpatient (IN) | payer BC ==
[2019-10-20 12:38] VITALS: BMI 24.5
--- NOTE | 2019-10-20 12:45 | PDOC ---
History of Present Illness - General Chief Complaint: Pain, Acute Stated Complaint: VOMITING BLOOD/ HERNIA - History of Present Illness Initial Comments: The pt is a 44F w/ a history of depression, HTN, RA, Asthma and h/o of gastric bypass presents for evaluation of several days of abdominal pain. The pain is periumbilical, constant, sharp, non-radiating, and is not exacerbated or alleviated by anything she can identify. She was seen at [facility] yesterday where a CT scan revealed an internal hernia. Pt presents for admission for surgical repair. Pt endorses associated nausea with bloody emesis. Endorses flatus Denies fevers/chills, chest pain, trouble breathing, dysuria, hematuria, or changes in sensation. 10/20/19 12:46 Past History - Past Medical History Allergies/Adverse Reactions: Allergies Allergy/AdvReac Type Severity Reaction Status Date / Time shellfish derived Allergy Intermediate Hives Verified 10/20/19 12:31 bupropion HCl Allergy Rash Verified 10/20/19 12:31 [From Wellbutrin] Home Medications: Ambulatory Orders Albuterol Sulfate [Proair Respiclick] 90 mcg IH PRN PRN 05/10/17 Zolpidem Tartrate [Ambien] 10 mg PO HS 06/04/17 cloNIDine HCL [Catapres -] 0.1 mg PO BID 06/11/17 Clonazepam [Klonopin] 2 mg PO BID 07/20/17 Amlodipine Besylate [Norvasc -] 10 mg PO DAILY 09/23/18 Budesonide/Formeterol Fumarate [SYMBICORT 160/4.5mcg -] 1 inh PO BID 10/28/18 Etanercept [Enbrel] 50 mg SQ WEEKLY 10/28/18 Diphenhydramine HCl [Benadryl -] 100 mg PO DAILY 03/09/19 Esomeprazole Magnesium [Nexium 24Hr] 40 mg PO DAILY 03/09/19 Mag Hydrox/Al Hydrox/Simeth [Mylanta *Suspension*] 30 ml PO Q6H PRN #28 cup Polyethylene Glycol 3350 [Miralax (For Daily Use) -] 17 gm PO DAILY #1 bottle Sertraline HCl 100 mg PO HS 07/22/19 Fluconazole 200 mg PO DAILY #3 tablet 09/20/19 Nystatin/Dpha/Lido/Sucrafate [Nystatin Mouth Rinse *Df Formula*] 5 ml MM Q6HPO # 120 bottle 09/20/19 Fluconazole [Diflucan] 150 mg PO ONCE #2 tablet 09/23/19 Nystatin Oral Suspension - [Nystatin Oral Susp 441876 Units/5 ML -] 500,000 units PO Q6H #56 cup 09/23/19 Penicillin V Potassium [Pen Vee K -] 500 mg PO QID #28 tablet 09/23/19 Anemia: Yes Asthma: Yes (USES INHALER,PROAIR, was unable to refill inhaler) Cancer: No Cardiac Disorders: No CVA: No COPD: No CHF: No Dementia: No Diabetes: No GI Disorders: Yes (GERD) Disorders: No HTN: Yes Hypercholesterolemia: No Liver Disease: No Psychiatric Problems: Yes (DEPRESSION) Seizures: No Thyroid Disease: No - Surgical History Abdominal Surgery: Yes (VERTICAL SLEEVE GASTRECTOMY 2011, ABDOMINOPLASTY/AND REVISION, LIPO X2,) Appendectomy: No Cardiac Surgery: No Cholecystectomy: No GI Surgery: Yes (GASTRIC BYPASS 2 WEEKS AGO) Lung Surgery: No Neurologic Surgery: No Orthopedic Surgery: Yes (RIGHT KNEE, SHOULDER SX, WRIST SX) - Psycho Social/Smoking Cessation Hx Smoking Status: No Smoking History: Current some day smoker Years of Tobacco Use: 24 Have you smoked in the past 12 months: No Number of Cigarettes Smoked Daily: 15 If you are a former smoker, when did you quit?: 10/14/18 Information on smoking cessation initiated: No 'Breaking Loose' booklet given: 09/23/19 Hx Alcohol Use: Yes (3 days a week) Drug/Substance Use Hx: No Substance Use Type: None Hx Substance Use Treatment: No Review of Systems - Review of Systems Able to Perform ROS?: Yes Comments:: GENERAL/CONSTITUTIONAL: No fever or chills. No weakness HEAD, EYES, EARS, NOSE AND THROAT: No change in vision. No change in hearing. No sore throat CARDIOVASCULAR: No chest pain or shortness of breath RESPIRATORY: Denies cough, hemoptysis GASTROINTESTINAL: per HPI GENITOURINARY: No dysuria, frequency, or change in urination MUSCULOSKELETAL: No joint or muscle swelling or pain. No neck or back pain SKIN: No rash NEUROLOGIC: No headache, vertigo, loss of consciousness, or change in strength/ sensation ENDOCRINE: No increased thirst. No abnormal weight change HEMATOLOGIC/LYMPHATIC: No anemia, easy bleeding, or history of blood clots ALLERGIC/IMMUNOLOGIC: No hives or skin allergy 10/20/19 12:45 Is the patient limited Guatemalan proficient: No *Physical Exam - Vital Signs Last Vital Signs Temp Pulse Resp BP Pulse Ox 98 F 88 16 122/79 99 10/20/19 12:32 10/20/19 12:32 10/20/19 12:32 10/20/19 12:32 10/20/19 12:32 - Physical Exam GENERAL: Awake, alert, and oriented to person/place/time, in no acute distress HEAD: No signs of trauma, normoc ephalic, atraumatic EYES: PERRLA, EOMI, sclera anicteric, conjunctiva clear ENT: Hearing grossly normal, nares patent, oropharynx clear without exudates. Moist mucosa LUNGS: No distress, speaks in full sentences, clear to auscultation bilaterally HEART: Regular rate and rhythm, normal S1 and S2, no murmurs appreciated, peripheral pulses normal and equal bilaterally ABDOMEN: Soft, generalized TTP w/o rebound or guarding, normoactive bowel sounds EXTREMITIES: Normal inspection, Normal range of motion, no edema. No clubbing or cyanosis NEUROLOGICAL: Cranial nerves II through XII grossly intact. Normal speech, normal gait, no focal sensorimotor deficits SKIN: Warm, Dry 10/20/19 12:45 ED Treatment Course - LABORATORY CBC & Chemistry Diagram: 10/20/19 12:56 10/20/19 12:56 Medical Decision Making - Medical Decision Making The pt is a 44F w/ a history of depression, HTN, RA, Asthma and h/o of gastric bypass presents for evaluation of several days of abdominal pain. She was seen at [facility] yesterday where a CT scan revealed an internal hernia. Pt presents for admission for surgical repair. Pt has imaging disc on her person ED Course Labs sent ECG NPO IVF Morphine for pain Zofran for nausea Plan for admission to Dr. Gary's service Consult order for Dr. Peterson placed 10/20/19 13:06 ECG w/ NSR; HR 89; QTc 474; no axis deviation; no SOLOMON No anemia No leukocytosis 10/20/19 13:46 Serum Preg neg Per Dr. Peterson plan for likely surgery today or tomorrow Pt NPO and started on maintenance IVF 10/20/19 14:11 Dispo: Admit Discharge - Discharge Information Problems reviewed: Yes Clinical Impression/Diagnosis: Internal hernia, S/P gastric bypass GERD (gastroesophageal reflux disease) Qualifiers: Esophagitis presence: esophagitis presence not specified Qualified Code(s): K21.9 - Gastro-esophageal reflux disease without esophagitis Condition: Stable - Admission Yes - Follow up/Referral - Patient Discharge Instructions - Post Discharge Activity
[2019-10-20] MEDS ORDERED: SODIUM CHLORIDE 1,000 ML IV SCH ×2 (13:30→21:45)
[2019-10-20 13:35] LABS: BASO % 0.9 % (0-2.0); EOS % 0.8 % (0-4.5); HEMATOCRIT 38.4 % (32.4-45.2); HEMOGLOBIN 12.3 GM/dL (10.7-15.3); LYMPH % 29.3 % (8-40); MCH 30.7 pg (25.7-33.7); MCHC 32.1 g/dl (32.0-36.0); MEAN CELL VOLUME 95.5 fl (80-96); MEAN PLT VOLUME 8.3 fl (7.5-11.1); MONO % 7.9 % (3.8-10.2); NEUT % 61.1 % (42.8-82.8); PLATELET COUNT 375 K/MM3 (134-434); RBC 4.02 M/mm3 (3.60-5.2); RDW 15.5 % (11.6-15.6); WHITE BLOOD COUNT 7.9 K/mm3 (4.0-10.0)
--- NOTE | 2019-10-20 13:38 | PDOC ---
Documentation entered by Kerline Pena SCRIBE, acting as scribe for Luis Cornelius MD. Luis Cornelius MD: This documentation has been prepared by the Becky amin Adrianna, SCRIBE, under my direction and personally reviewed by me in its entirety. I confirm that the documentation accurately reflects all work, treatment, procedures, and medical decision making performed by me. Attending Attestation - Resident Resident Name: Georgi Lim - ED Attending Attestation I have performed the following: I have examined & evaluated the patient, The case was reviewed & discussed with the resident, I agree w/resident's findings & plan, Exceptions are as noted - HPI HPI: The patient is a 44 year old female, with a significant PMH of depression, HTN, RA, GERD, asthma, anemia, and gastric bypass, who presents for evaluation of abdominal pain. Patient complains of periumbilical abdominal pain, that is constant and sharp in nature. She denies any aggravating or alleviating factors. Patient endorses associated nausea with vomiting. Patient was seen for this complaint at [place] yesterday, and her CT showed an internal hernia. Pt presents today to be evaluated by Dr. Peterson for likely surgery. Allergies: Shellfish, bupropion Surgical History: vertical sleeve gastrectomy, abdominoplasty and revision, lipo , gastric bypass, right knee arthroscopy, shoulder arthroscopy,wrist arthroscopy Social History: Current some day smoker. Denies EtOH or illicit drug use PCP: Dr. Gary - Physicial Exam PE: "GENERAL: Awake, alert, and fully oriented, in no acute distress. HEAD: No signs of trauma EYES: PERRLA, EOMI, sclera anicteric, conjunctiva clear ENT: Auricles normal inspection, hearing grossly normal, nares patent, oropharynx clear without exudates. Moist mucosa NECK: Nontender, no stepoffs, Normal ROM, supple, no lymphadenopathy, JVD, or masses LUNGS: Breath sounds equal, clear to auscultation bilaterally. No wheezes, and no crackles HEART: Regular rate and rhythm, normal S1 and S2, no murmurs, rubs or gallops ABDOMEN: + diffuse TTP, normoactive bowel sounds. No guarding, no rebound. No masses EXTREMITIES: Normal range of motion, no edema. No clubbing or cyanosis. No cords, erythema, or tenderness NEUROLOGICAL: Cranial nerves II through XII intact. 5/5 strength and sensation in all extremities, Normal speech, normal gait, normal cerebellar function SKIN: Warm, Dry, normal turgor, no rashes or lesions noted. - Medical Decision Making 10/20/19 13:46 44 F with abdominal pain, N+V. CT yesterday shows internal hernia. - Labs - NPO - IVF, pain control - Dr. Peterson aware
[2019-10-20 13:50] LABS: INR 0.93 (0.83-1.09)
[2019-10-20 13:52] LABS: ACTIVATED PTT 30.8 SECONDS (25.2-36.5)
[2019-10-20 15:26] LABS: ALBUMIN 3.5 g/dl (3.4-5.0); BILIRUBIN,TOTAL 0.4 mg/dL (0.2-1); BLOOD UREA NITROGEN 9.4 mg/dL (7-18); CALCIUM 8.5 mg/dL (8.5-10.1); CREATININE 0.9 mg/dL (0.55-1.3); POTASSIUM 3.9 mmol/L (3.5-5.1); TOT PROT 7.1 g/dl (6.4-8.2)
[2019-10-20] MEDS ORDERED: ALBUTEROL SO4 0.083% IH SOL 2.5 MG/3 ML VIAL.NEB. NEB PRN (17:38)
--- NOTE | 2019-10-20 17:52 | CONSULT ---
Consult - text type - Consultation Consultation Note: Bariatric Surgery 44 y o female well-known to me who presents with severe abdominal pain, vomiting to [facility] scan read as probable internal hernia (pt is S/P Gastric Bypass), and pt transferred to [facility] for definitive therapy. Pt states pain is intermittent, similar to pain in Jan, 2019 that led to Laparoscopic repair of hernia. PMHx- Hypertension, Asthma, GERD, Anemia, RA, Depression (pt recently completed steroid course for asthma exacerbation) PSHx- Gastric Sleeve, Gastric Bypass(both Laparoscopic), Wrist, shoulder arthroscopies, abdominoplasty, liposuction Allergies- shellfish, Wellbutrin P/E- Gen- Awake, alert, ambulating, NAD Abd- midline incision well-healed (from Abdominoplasty) soft, mild LUQ and LLQ tenderness on palpation no rebound tenderness no guarding V/S- Afebrile p- 78 BP-125/72 WBC-7.9 H/H-12.3/38.4 CT scan- shows probable twisting of mesentery no dilated bowel seen I- Likely internal abdominal hernia P- OR for diagnostic Laparoscopy plus repair of hernia
[2019-10-20] MEDS ORDERED: FLU VACCINE QUAD 60 MCG/0.5 ML (MDV 19-20) IM ONE (18:26)
[2019-10-20] MEDS ORDERED: PNEUMOC 13-VAL CONJ-DIP CRM/PF 0.5 ML DISP.SYRIN IM ONE (18:47)
[2019-10-20] MEDS ORDERED: ceFAZolin SODIUM 1 GM VIAL IVPB ONE (18:55)
[2019-10-20] MEDS ORDERED: fentaNYL CITRATE 250 MCG/5 ML VIAL ONE ×2 (18:56→19:42)
[2019-10-20] MEDS ORDERED: EPHEDRINE SULFATE/0.9% NACL/PF 50 MG/10 ML SYRINGE NR ONE (18:57)
[2019-10-20] MEDS ORDERED: ROCURONIUM BROMIDE 50 MG/5 ML SYRINGE ONE (18:57)
[2019-10-20] MEDS ORDERED: MIDAZOLAM HCL 2 MG/2 ML SINGLE DOSE VIAL ONE (18:57)
[2019-10-20] MEDS ORDERED: PNEUMOCOCCAL 23 VACCINE 0.5 ML VIAL IM ONE (19:00)
[2019-10-20] MEDS ORDERED: NEOSTIGMINE METHYLSULFATE 0.5 MG/ML - 10 ML MDV ONE (21:16)
[2019-10-20] MEDS ORDERED: BUPIVACAINE HCL/PF 0.5% (5 MG/ML) 30 ML VIAL IJ ONE (21:20)
[2019-10-20] MEDS ORDERED: ONDANSETRON 4 MG/2 ML VIAL IVPUSH PRN (21:31)
[2019-10-20] MEDS ORDERED: HYDROmorphone HCL 2 MG TABLET PO PRN (21:37)
--- NOTE | 2019-10-20 21:45 | OP ---
Operative Note - Note: Operative Date: 10/20/19 Pre-Operative Diagnosis: Internal Abdominal Hernia. Abdominal Pain Operation: Repair of Internal Abdominal Hernia. Detorsion of Small Intestine. Diagnostic Laparoscopy Findings: Small Bowel was twisted around mesentery causing torsion of mesentery and small bowel Portions of small bowel were very distended Mesenteric defect at jejuno-jejunostomy anastomosis causing internal hernia Post-Operative Diagnosis: Same as Pre-op (Torsion of small intestine and mesentery) Surgeon: Jesús Peterson Generating Plant Superintendent: Roselia Wilburn Anesthesia: General Estimated Blood Loss (mls): 50 Operative Report Dictated: Yes
[2019-10-20] MEDS ORDERED: BUDESONIDE/FORMETEROL FUMARATE 160/4.5 mcg INHALER IH SCH (22:00)
[2019-10-20] MEDS ORDERED: ZOLPIDEM TARTRATE 5 MG TABLET PO PRN (22:00)
[2019-10-20] MEDS ORDERED: SERTRALINE HCL 50 MG TABLET (FP) PO SCH (22:00)
[2019-10-20] MEDS ORDERED: FAMOTIDINE 20 MG/50 ML IVPB 20 MG/50 ML MG IVPB SCH (22:00)
[2019-10-20] MEDS ORDERED: LACTATED RINGERS SOLUTION 1,000 ML IV SCH (22:00)
[2019-10-20] MEDS ORDERED: cloNIDine HCL 0.1 MG TABLET PO SCH (22:00)
--- NOTE | 2019-10-20 22:11 | SURG ---
Surgery Field Pipe Lines Supervisor Note Field Pipe Lines Supervisor: Roselia Wilburn PA-C Date of Service: 10/20/19 Diagnosis: : Internal Abdominal Hernia. Abdominal Pain Procedure: Repair of Internal Abdominal Hernia. Detorsion of Small Intestine. Diagnostic Laparoscopy I was present for the entirety of the operative procedure. For further detail, please refer to operative report. Visit type - Case Type Case Type: ED Admission - Emergency Emergency Visit: Yes ED Registration Date: 10/20/19 Care time: The patient presented to the Emergency Department on the above date and was hospitalized for further evaluation of their emergent condition. - New patient This patient is new to me today: Yes Date on this admission: 10/20/19
[2019-10-20] MEDS ORDERED: HYDROmorphone HCl 2 MG/ML VIAL ONE (22:20)
[2019-10-20] MEDS ORDERED: HYDROmorphone HCl 2 MG/ML VIAL IVPUSH ONE (22:23)
--- NOTE | 2019-10-21 00:22 | HOSP ---
Subjective - Review of Symptoms Events since last encounter: Hospitalist Encounter Received a microblog from the RN that the patient is requesting to leave the hospital against medical advice. patient is s/p Hernia Repair POD #0 Was asked to assess. Arrived to the patient's room, addressed the patient, she would not respond. The patient proceeded to get dressed in her street clothes. Attempts made to convenience the patient to stay- unsuccessful. I informed the RN to call security for assistance. I called the overnight nursing chemical plant operator supervisor Erwin Flores, who said he would come up to speak with the patient. After several attempts by the nursing chemical plant operator supervisor and myself, patient agreed to stay in the hospital. The RN informed Dr Pate of the recent admits. Plan: Nicotine Patch Klonipin Physical Examination Vital Signs: Vital Signs Temperature 98.1 F 10/20/19 23:15 Pulse Rate 77 10/20/19 23:15 Respiratory Rate 14 10/20/19 23:15 Blood Pressure 116/75 10/20/19 23:15 O2 Sat by Pulse Oximetry (%) 96 10/20/19 23:15 Constitutional: Yes: Mild Distress, Other (uncooperative) Eyes: Yes: Conjunctiva Clear, EOM Intact, PERRL HENT: Yes: WNL, Atraumatic, Normocephalic Neck: Yes: WNL, Supple, Trachea Midline Cardiovascular: Yes: Regular Rate and Rhythm, S1, S2 Respiratory: Yes: WNL, Regular, CTA Bilaterally Gastrointestinal: Yes: Soft, Tenderness, Other (absent) ...Rectal Exam: Yes: Deferred Breast(s): Yes: WNL Musculoskeletal: Yes: WNL Extremities: Yes: WNL Edema: No Wound/Incision: Yes: Clean/Dry (bandaids) Neurological: Yes: Alert, Oriented, Cran Nerves II-XII Intact ...Motor Strength: WNL Psychiatric: Yes: Alert, Oriented, Agitated Labs: CBC, BMP 10/20/19 12:56 10/20/19 12:56 Hospitalist Encounter Outcome: addendum 0215- notified by the RN, that the patient left the floor Later notified by the RN, that the patient returned.
[2019-10-21] MEDS ORDERED: NICOTINE 14 MG/24 HOURS TOPICAL PATCH TD ONE (00:33)
[2019-10-21] MEDS ORDERED: clonazePAM 2 MG TABLET PO PRN (00:38)
[2019-10-21] MEDS: HYDROmorphone HCL 2 MG TABLET PO PRN ×2 (01:03→05:50)
[2019-10-21] MEDS: HEPARIN NA (PORCINE) 5,000 UNITS/ML 1ML VIAL SQ SCH ×2 (01:36→05:50)
[2019-10-21 06:06] VITALS: BP 115/77; PULSE 94; TEMP 97.8
--- NOTE | 2019-10-21 07:02 | OP ---
DATE OF OPERATION: 10/20/2019 PREOPERATIVE DIAGNOSES: 1. Internal abdominal hernia. 2. Abdominal pain. POSTOPERATIVE DIAGNOSES: 1. Internal abdominal hernia. 2. Abdominal pain. 3. Torsion of small intestine and small intestine mesentery. PROCEDURES PERFORMED: 1. Repair of internal abdominal hernia. 2. Reduction of small intestine from internal hernia. 3. De-torsion of small intestine around the mesentery. 4. Diagnostic laparoscopy. OPERATING SURGEON: Pritesh Delatorre MD APPLICATION SOFTWARE ENGINEER: SIDNEY Villalba ANESTHESIA: General. OPERATIVE PROCEDURE: The patient was brought into the operating room, placed on the OR table in a supine position. All precautions were taken initially including padding for the back and the feet, and Venodyne boots were placed on both lower extremities. At that point, the abdomen was prepped and draped in the usual manner. A Veress needle was placed in the left upper quadrant, and a pneumoperitoneum was established. Under direct vision, a No. 5, 0-degree trocar was placed with direct vision with the camera, and this was done right below the umbilicus. Once this was done under direct vision, a No. 12 and a No. 5 bladeless trocar were placed in the right lower quadrant and right upper quadrant respectively and a No. 5 bladeless trocar below the left costal margin. At this point, attention was directed to the mesocolon. With the help of the assistant store director surgeon and the primary surgeon, the mesocolon was lifted up, and the small bowel was noted. Many loops of small bowel were removed from the area of the mesocolon, and they were pulled in a downward direction to go towards the pelvis or feet of the patient. This was done in order to get to a point where the small bowel could be run. While doing this, it was noted that there were some very distended loops of bowel, which appeared to be at least partially obstructed, although the preoperative CAT scan did not show that. It also came about that the anastomosis between the jejunum and the biliary limb and the alimentary limb was also noted, and this also was distended. Complete exploration of the small bowel was made. There were found to be no injuries to the small bowel and no signs of any ischemia. However, in the left upper quadrant, there was what appeared to be a mesenteric twist, and bowel was caught behind that. The bowel behind that was noted to be slightly distended, and it was felt that this was where most the pathology was. At that point, with the assistant store director surgeon assisting, the primary surgeon was able to reduce the small bowel contents from around the twist until the small bowel contents were all in normal position and now the mesentery was untwisted. Even though there was a twist to the mesentery, there were no signs of any ischemia in any portions of the small bowel. Once the small bowel was de-torsed around the mesenteric twist and everything appeared normal, attention was directed to the jejunojejunostomy. There appeared to be a large defect between the mesentery, and it was in here that the internal hernia most probably originated. The Endo Stitch was then used with 2-0 suture to close that in a continuous fashion starting from the small bowel and going all the way to the root of the mesentery. When it was tied, the mesenteric defect was now completely closed, and the internal hernia was now repaired. At this point, irrigation was done in the left and right upper quadrants and also in the left lower quadrant and suctioned until clear. A final observation of the bowel showed that everything was in normal position, and at that point under direct vision, the No. 12 trocar site was closed with the Wilber-Yaima endo closure to prevent internal hernia and prevent bleeding. Under direct vision, all the No. 5 trocars were removed, and the pneumoperitoneum was released. All trocar sites received 0.25% Marcaine and were closed with 4-0 Biosyn in a subcuticular fashion. Dressings were applied. The patient was awoken from anesthesia and transferred out of the operating room to the recovery room in stable condition. Expected blood loss was 50 mL. The surgery was time consuming because the entire bowel was run and made the surgery high risk and also a difficult procedure. PRITESH DELATORRE M.D. [id number]
[2019-10-21 07:29] LABS: EOS % 0.2 % (0-4.5); HEMATOCRIT 33.6 % (32.4-45.2); HEMOGLOBIN 10.9 GM/dL (10.7-15.3); LYMPH % 14.2 % (8-40); MCH 31.1 pg (25.7-33.7); MCHC 32.4 g/dl (32.0-36.0); MEAN CELL VOLUME 95.9 fl (80-96); MEAN PLT VOLUME 8.2 fl (7.5-11.1); MONO % 7.2 % (3.8-10.2); NEUT % 77.4 % (42.8-82.8); PLATELET COUNT 339 K/MM3 (134-434); RDW 15.8 % (11.6-15.6); WHITE BLOOD COUNT 9.5 K/mm3 (4.0-10.0)
[2019-10-21 08:10] LABS: ALBUMIN 3.3 g/dl (3.4-5.0); BILIRUBIN,TOTAL 0.5 mg/dL (0.2-1); BLOOD UREA NITROGEN 10.7 mg/dL (7-18); CALCIUM 8.7 mg/dL (8.5-10.1); CREATININE 0.8 mg/dL (0.55-1.3); POTASSIUM 4.4 mmol/L (3.5-5.1); TOT PROT 6.6 g/dl (6.4-8.2)
[2019-10-21] MEDS ORDERED: amLODIPine BESYLATE 10 MG TABLET (FP) PO SCH (10:00)
[2019-10-21] MEDS ORDERED: FAMOTIDINE 20 MG TABLET PO SCH (10:00)
--- NOTE | 2019-10-21 10:07 | DS ---
Physical Examination Vital Signs: Vital Signs Temperature 97.8 F 10/21/19 06:00 Pulse Rate 94 H 10/21/19 06:00 Respiratory Rate 20 10/21/19 06:00 Blood Pressure 115/77 10/21/19 06:00 O2 Sat by Pulse Oximetry (%) 96 10/20/19 23:15 Findings/Remarks: PATIENT LEFT AMA Labs: CBC, BMP 10/21/19 06:35 10/21/19 06:35 Discharge Summary Problems reviewed: Yes Reason For Visit: HX OF GASTRIC BYPASS,INTERNAL HERNIA,ABD PAIN Current Active Problems GERD (gastroesophageal reflux disease) (Acute) Internal hernia (Acute) S/P gastric bypass (Acute) Condition: Stable - Instructions Referrals: Zane Mckoy MD [Primary Care Provider] - Disposition: AGAINST MEDICAL ADVICE - Home Medications Comprehensive Discharge Medication List: Ambulatory Orders Albuterol Sulfate [Proair Respiclick] 90 mcg IH PRN PRN 05/10/17 Zolpidem Tartrate [Ambien] 10 mg PO HS 06/04/17 cloNIDine HCL [Catapres -] 0.1 mg PO BID 06/11/17 Clonazepam [Klonopin] 2 mg PO BID 07/20/17 Amlodipine Besylate [Norvasc -] 10 mg PO DAILY 09/23/18 Budesonide/Formeterol Fumarate [SYMBICORT 160/4.5mcg -] 1 inh PO BID 10/28/18 Etanercept [Enbrel] 50 mg SQ WEEKLY 10/28/18 Diphenhydramine HCl [Benadryl Capsule -] 100 mg PO DAILY 03/09/19 Esomeprazole Magnesium [Nexium 24Hr] 40 mg PO DAILY 03/09/19 Mag Hydrox/Al Hydrox/Simeth [Mylanta Oral Suspension -] 30 ml PO Q6H PRN #28 cup 03/09/19 Polyethylene Glycol 3350 [Miralax 119 gm Btl -] 17 gm PO DAILY #1 bottle Sertraline HCl 100 mg PO HS 07/22/19 Fluconazole 200 mg PO DAILY #3 tablet 09/20/19 Nystatin/Dpha/Lido/Sucrafate [Nystatin Mouth Rinse *Df Formula*] 5 ml MM Q6HPO # 120 bottle 09/20/19 Fluconazole [Diflucan] 150 mg PO ONCE #2 tablet 09/23/19 Nystatin Oral Suspension - [Nystatin Oral Susp 334779 Units/5 ML -] 500,000 units PO Q6H #56 cup 09/23/19
--- NOTE | 2019-10-21 10:54 | EKG ---
Test Reason : Blood Pressure : / mmHG Vent. Rate : 089 BPM Atrial Rate : 089 BPM P-R Int : 138 ms QRS Dur : 078 ms QT Int : 390 ms P-R-T Axes : 039 -19 021 degrees QTc Int : 474 ms NORMAL SINUS RHYTHM NORMAL ECG WHEN COMPARED WITH ECG OF 07-AUG-2019 19:47, NO SIGNIFICANT CHANGE WAS FOUND Confirmed by ELLA SANTACRUZ MD ([id number]) on 10/21/2019 10:54:04 AM Referred By: Confirmed By:ELLA SANTACRUZ MD
== END 2019-10-21 10:17 | disposition left against medical advice (07) | DRG 329 ==
LOC: JER 12:02 → JERBED 13:01 → J5S 17:45 → JSAMEDAYSX 19:39 → J8W 23:38
PROVIDERS: ADMIT Family Medicine; ATTEND Family Medicine
PROC: 0DS84ZZ Reposition Small Intestine, Percutaneous Endoscopic Approach (ICD-10-PCS; 2019-10-20)
PROC: 0DN84ZZ Release Small Intestine, Percutaneous Endoscopic Approach (ICD-10-PCS; 2019-10-20)
PROC: 0DQV4ZZ Repair Mesentery, Percutaneous Endoscopic Approach (ICD-10-PCS; principal; 2019-10-20 17:00)
DX: K46.9 Unspecified abdominal hernia without obstruction or gangrene (principal); K56.2 Volvulus; F32.9 Major depressive disorder, single episode, unspecified; I10 Essential (primary) hypertension; J45.909 Unspecified asthma, uncomplicated; Z98.84 Bariatric surgery status; K21.9 Gastro-esophageal reflux disease without esophagitis
CPT/HCPCS: 36415; 80053; 84703; 85025; 85610; 85730; 86850; 86900; 86901; 93005; 93010; 94760; 99285-25; J0735; J1644; J7030

== ENCOUNTER 2019-10-21 12:20 | Emergency (ER) | payer BC ==
[2019-10-21 12:38] VITALS: BP 124/86; PULSE 81; TEMP 98; BMI 24.5
--- NOTE | 2019-10-21 15:46 | PDOC ---
History of Present Illness - General Chief Complaint: Psychiatric Stated Complaint: WANTS TO BE READMITTED Time Seen by Provider: 10/21/19 12:24 History Source: Patient Exam Limitations: No Limitations - History of Present Illness Initial Comments: 10/21/19 15:45 CHIEF COMPLAINT: Here for follow-up after her laparoscopic surgery yesterday HISTORY OF PRESENT ILLNESS: 44-year-old female with a history of a remote gastric sleeve and then a gastric bypass last year, patient was seen yesterday in the emergency room for abdominal pain and then admitted due to findings of an internal hernia. She was taken to the OR where she underwent exploratory laparoscopy with reduction and repair of the small bowel internal hernia as well as detorsion of the small bowel. The plan postoperatively was to observe the patient overnight and to discharge her today. She was frequently smoking and going off the floor for food, and she took out her IV and left the hospital AGAINST MEDICAL ADVICE prior to discharge. She returns now to the emergency department for reevaluation. She states she has been eating without difficulty. There is no nausea, vomiting or diarrhea. She does have some abdominal discomfort, but no abdominal distention or anything unusual for her postoperative state. There is no fever. There is no vomiting. There is no bleeding or redness from her wounds. REVIEW OF SYSTEMS: GENERAL/CONSTITUTIONAL: No fever or chills. No weakness. No weight change. HEAD, EYES, EARS, NOSE AND THROAT: No change in vision. No ear pain or discharge. No sore throat. CARDIOVASCULAR: No chest pain or shortness of breath. RESPIRATORY: No cough, wheezing, or hemoptysis. GASTROINTESTINAL: No nausea, vomiting, diarrhea or constipation. No rectal bleeding. Status post surgery yesterday, see HPI, positive postoperative abdominal discomfort. GENITOURINARY: No dysuria, frequency, or change in urination. MUSCULOSKELETAL: No joint or muscle swelling or pain. No neck or back pain. SKIN AND BREASTS: No rash or easy bruising. NEUROLOGIC: No headache, vertigo, loss of consciousness, or loss of sensation. PSYCHIATRIC: No depression or anxiety. ENDOCRINE: No increased thirst. No abnormal weight change. HEMATOLOGIC/LYMPHATIC: No anemia, easy bleeding, or history of blood clots. ALLERGIC/IMMUNOLOGIC: No hives or skin allergy. No latex allergy. Past History - Past Medical History Allergies/Adverse Reactions: Allergies Allergy/AdvReac Type Severity Reaction Status Date / Time shellfish derived Allergy Intermediate Hives Verified 10/20/19 12:31 bupropion HCl Allergy Rash Verified 10/20/19 12:31 [From Wellbutrin] Home Medications: Ambulatory Orders Albuterol Sulfate [Proair Respiclick] 90 mcg IH PRN PRN 05/10/17 Zolpidem Tartrate [Ambien] 10 mg PO HS 06/04/17 cloNIDine HCL [Catapres -] 0.1 mg PO BID 06/11/17 Clonazepam [Klonopin] 2 mg PO BID 07/20/17 Amlodipine Besylate [Norvasc -] 10 mg PO DAILY 09/23/18 Budesonide/Formeterol Fumarate [SYMBICORT 160/4.5mcg -] 1 inh PO BID 10/28/18 Etanercept [Enbrel] 50 mg SQ WEEKLY 10/28/18 Diphenhydramine HCl [Benadryl Capsule -] 100 mg PO DAILY 03/09/19 Esomeprazole Magnesium [Nexium 24Hr] 40 mg PO DAILY 03/09/19 Mag Hydrox/Al Hydrox/Simeth [Mylanta Oral Suspension -] 30 ml PO Q6H PRN #28 cup 03/09/19 Polyethylene Glycol 3350 [Miralax 119 gm Btl -] 17 gm PO DAILY #1 bottle Sertraline HCl 100 mg PO HS 07/22/19 Fluconazole 200 mg PO DAILY #3 tablet 09/20/19 Nystatin/Dpha/Lido/Sucrafate [Nystatin Mouth Rinse *Df Formula*] 5 ml MM Q6HPO # 120 bottle 09/20/19 Fluconazole [Diflucan] 150 mg PO ONCE #2 tablet 09/23/19 Nystatin Oral Suspension - [Nystatin Oral Susp 868433 Units/5 ML -] 500,000 units PO Q6H #56 cup 09/23/19 Oxycodone HCl/Acetaminophen [Percocet 5-325 mg Tablet] 1 tab PO Q6H PRN #14 tablet MDD 4 10/21/19 Anemia: Yes Asthma: Yes (USES INHALER,PROAIR, was unable to refill inhaler) Cancer: No Cardiac Disorders: No CVA: No COPD: No CHF: No Dementia: No Diabetes: No GI Disorders: Yes (GERD) Disorders: No HTN: Yes Hypercholesterolemia: No Liver Disease: No Psychiatric Problems: Yes (DEPRESSION, anxiety) Seizures: No Thyroid Disease: No - Surgical History Abdominal Surgery: Yes (VERTICAL SLEEVE GASTRECTOMY 2012, ABDOMINOPLASTY/AND REVISION, LIPO X2,) Appendectomy: No Cardiac Surgery: No Cholecystectomy: No GI Surgery: Yes (GASTRIC BYPASS and gastric sleeve) Lung Surgery: No Neurologic Surgery: No Orthopedic Surgery: Yes (RIGHT KNEE, SHOULDER SX, WRIST SX) - Psycho Social/Smoking Cessation Hx Smoking Status: No Smoking History: Current every day smoker Years of Tobacco Use: 24 Have you smoked in the past 12 months: Yes Number of Cigarettes Smoked Daily: 15 If you are a former smoker, when did you quit?: 10/14/18 Information on smoking cessation initiated: Yes 'Breaking Loose' booklet given: 09/23/19 Hx Alcohol Use: Yes Drug/Substance Use Hx: Yes Substance Use Type: None Hx Substance Use Treatment: No *Physical Exam - Vital Signs Last Vital Signs Temp Pulse Resp BP Pulse Ox 98.0 F 81 16 124/86 100 10/21/19 12:22 10/21/19 12:22 10/21/19 12:22 10/21/19 12:22 10/21/19 12:22 - Physical Exam 10/21/19 15:50 GENERAL: The patient is awake, alert, and fully oriented, in no acute distress. She is calm and cooperative. HEAD: Normal with no signs of trauma. EYES: Pupils equal, round and reactive to light, extraocular movements intact, sclera anicteric, conjunctiva clear. ENT: Ears normal, nares patent, oropharynx clear without exudates. Moist mucous membranes. NECK: Normal range of motion, supple without lymphadenopathy, JVD, or masses. LUNGS: Breath sounds equal, clear to auscultation bilaterally. No wheezes, and no crackles. HEART: Regular rate and rhythm, normal S1 and S2 without murmur, rub or gallop. ABDOMEN: Abdomen is soft, there is mild diffuse tenderness, no guarding, no rebound tenderness. There are multiple laparoscopic wounds, no bleeding, no erythema, no discharge, all appear to be healing well. There is no abdominal distention. Bowel sounds are normal and active. EXTREMITIES: Normal range of motion, no edema. No clubbing or cyanosis. No cords, erythema, or tenderness. NEUROLOGICAL: Cranial nerves II through XII grossly intact. Normal speech, normal gait. PSYCH: Normal mood, normal affect. SKIN: Warm, Dry, normal turgor, no rashes or lesions noted. Medical Decision Making - Medical Decision Making 10/21/19 15:51 Patient is status post reduction and repair of internal hernia yesterday. I spoke with Dr. Jesús Peterson, her surgeon. Her modest abdominal pain is expected postoperative. She left the hospital prematurely with no pain medication. Currently she is tolerating oral intake well. There is no nausea or vomiting. Her abdominal examination is as expected postoperatively. Impression: Status post abdominal surgery for repair of internal hernia and detorsion of small bowel. Currently tolerating oral intake well, with modest postoperative pain as expected. Plan: Discussed with Dr. Peterson. Patient will be discharged on oral Percocet and will follow up with him this coming week. No need for further work-up. Discharge - Discharge Information Problems reviewed: Yes Clinical Impression/Diagnosis: Postoperative follow-up, Abdominal pain, Abdominal pain determined by examination Condition: Stable Disposition: HOME - Admission No - Additional Discharge Information Prescriptions: Oxycodone HCl/Acetaminophen [Percocet 5-325 mg Tablet] 1 tab PO Q6H PRN #14 tablet MDD 4 PRN Reason: abdominal pain Prescription Drug Monitoring Program (I-STOP) results: I-STOP reviewed and no issues identified - Follow up/Referral Referrals: Cam Edge MD [Primary Care Provider] - 2 Days Jesús Peterson MD [Staff Physician] - 2 Days - Patient Discharge Instructions Patient Printed Discharge Instructions: DI for Prescription Opioid Use Additional Instructions: You were evaluated today after your surgery. It is expected that you will have some mild abdominal pain after the surgery, which should get better day by day. Take Percocet as needed for the pain. Follow-up with Dr. Peterson on Wednesday. Follow-up with your primary care physician on Wednesday as well. Eat a simple diet. If you develop nausea, vomiting, severe abdominal pain, fever, or any other signs of a complication, contact Dr. Peterson immediately and return to the emergency department for further evaluation. - Post Discharge Activity
== END 2019-10-21 17:00 | disposition home or self-care (01) ==
LOC: SUPCPDRO 12:20 → FER 12:20
DX: G89.18 Other acute postprocedural pain (principal); Z91.013 Allergy to seafood; Z88.8 Allergy status to other drugs, medicaments and biological substances; F17.210 Nicotine dependence, cigarettes, uncomplicated; Z98.84 Bariatric surgery status; F32.9 Major depressive disorder, single episode, unspecified; F41.9 Anxiety disorder, unspecified; J45.909 Unspecified asthma, uncomplicated; K21.9 Gastro-esophageal reflux disease without esophagitis
CPT/HCPCS: 99282-25

== ENCOUNTER 2019-10-22 19:02 | Emergency (ER) | payer BC ==
[2019-10-22 19:32] VITALS: TEMP 98.1; BMI 25.7
--- NOTE | 2019-10-22 19:52 | PDOC ---
History of Present Illness - General Chief Complaint: Vomiting Blood Stated Complaint: ABDOMINAL PAIN Time Seen by Provider: 10/22/19 19:50 History Source: Patient Exam Limitations: No Limitations - History of Present Illness Initial Comments: 10/22/19 19:51 Wendy Michel is a 44F with PMH rheumatoid arthritis, HTN, asthma, fibromyalgia , and presenting with abdominal pain in the setting of recent surgery to correct internal mesenteric hernia and AMA from [facility] on POD #0. Patient has had gastric sleeve procedure and gastric bypass last year. Patient reports that she went to the [facility] ED for evaluation 3 days ago for abdominal pain, found to have an internal hernia and had a surgery to repair. Per chart review, patient had exploratory laparoscopy surgery with Dr. Peterson, had small bowel detorsion and internal hernia repair. However, patient says she was "discharged" from the hospital 2 days ago for some reason she cannot explain, and says she went home still feeling weak from her surgery and tripped on the stairs, hitting her chest. Denies dizziness, chest pain, palpitations, LOC. Per chart review, was frequently smoking and going off the floor for food, and she took out her IV and left the hospital AMA. Went to [facility] yesterday because of abdominal pain after surgery and wanting to be re-admitted. Per chart review, attending Dr. Lozoya evaluated her, found no concerning findings outside of the normal expected post-op pain, spoke to Dr. Peterson, plan for discharge home with PO Percocet and office follow- up. Now here for abdominal pain described as generalized tenderness and constipation , also reports scant blood in vomit. Tolerating PO well, denies any nausea or diarrhea. Denies any fever/chills or bleeding from laparoscopic incisions. Denies any chest pain, SOB. Past History - Past Medical History Allergies/Adverse Reactions: Allergies Allergy/AdvReac Type Severity Reaction Status Date / Time shellfish derived Allergy Intermediate Hives Verified 10/20/19 12:31 bupropion HCl Allergy Rash Verified 10/20/19 12:31 [From Wellbutrin] Home Medications: Ambulatory Orders Albuterol Sulfate [Proair Respiclick] 90 mcg IH PRN PRN 05/10/17 Zolpidem Tartrate [Ambien] 10 mg PO HS 06/04/17 cloNIDine HCL [Catapres -] 0.1 mg PO BID 06/11/17 Clonazepam [Klonopin] 2 mg PO BID 07/20/17 Amlodipine Besylate [Norvasc -] 10 mg PO DAILY 09/23/18 Budesonide/Formeterol Fumarate [SYMBICORT 160/4.5mcg -] 1 inh PO BID 10/28/18 Etanercept [Enbrel] 50 mg SQ WEEKLY 10/28/18 Diphenhydramine HCl [Benadryl Capsule -] 100 mg PO DAILY 03/09/19 Esomeprazole Magnesium [Nexium 24Hr] 40 mg PO DAILY 03/09/19 Mag Hydrox/Al Hydrox/Simeth [Mylanta Oral Suspension -] 30 ml PO Q6H PRN #28 cup 03/09/19 Polyethylene Glycol 3350 [Miralax 119 gm Btl -] 17 gm PO DAILY #1 bottle Sertraline HCl 100 mg PO HS 07/22/19 Fluconazole 200 mg PO DAILY #3 tablet 09/20/19 Nystatin/Dpha/Lido/Sucrafate [Nystatin Mouth Rinse *Df Formula*] 5 ml MM Q6HPO # 120 bottle 09/20/19 Fluconazole [Diflucan] 150 mg PO ONCE #2 tablet 09/23/19 Nystatin Oral Suspension - [Nystatin Oral Susp 940104 Units/5 ML -] 500,000 units PO Q6H #56 cup 09/23/19 Oxycodone HCl/Acetaminophen [Percocet 5-325 mg Tablet] 1 tab PO Q6H PRN #14 tablet MDD 4 10/21/19 Anemia: Yes Asthma: Yes (USES INHALER,PROAIR, was unable to refill inhaler) Cancer: No Cardiac Disorders: No CVA: No COPD: No CHF: No Dementia: No Diabetes: No GI Disorders: Yes (GERD) Disorders: No HTN: Yes Hypercholesterolemia: No Liver Disease: No Psychiatric Problems: Yes (DEPRESSION, anxiety) Seizures: No Thyroid Disease: No - Surgical History Abdominal Surgery: Yes (VERTICAL SLEEVE GASTRECTOMY 2012, ABDOMINOPLASTY/AND REVISION, LIPO X2,) Appendectomy: No Cardiac Surgery: No Cholecystectomy: No GI Surgery: Yes (GASTRIC BYPASS and gastric sleeve) Lung Surgery: No Neurologic Surgery: No Orthopedic Surgery: Yes (RIGHT KNEE, SHOULDER SX, WRIST SX) - Psycho Social/Smoking Cessation Hx Smoking Status: No Smoking History: Never smoked Years of Tobacco Use: 24 Have you smoked in the past 12 months: Yes Number of Cigarettes Smoked Daily: 15 If you are a former smoker, when did you quit?: 10/14/18 'Breaking Loose' booklet given: 10/21/19 Hx Alcohol Use: No Drug/Substance Use Hx: No Substance Use Type: None Hx Substance Use Treatment: No Review of Systems - Review of Systems Able to Perform ROS?: Yes Constitutional: No: Chills, Fever, Loss of Appetite HEENTM: No: Symptoms Reported Respiratory: No: Cough, Wheezing ABD/GI: Yes: Abdominal Distended. No: Diarrhea, Nausea, Poor Appetite, Poor Fluid Intake, Vomiting : No: Symptoms Reported Musculoskeletal: No: Symptoms Reported Integumentary: No: Symptoms Reported Neurological: No: Symptoms reported Endocrine: No: Symptoms Reported Hematologic/Lymphatic: No: Symptoms Reported All Other Systems: Reviewed and Negative *Physical Exam - Vital Signs Last Vital Signs Temp Pulse Resp BP Pulse Ox 98.1 F 86 20 109/61 99 10/22/19 19:24 10/22/19 19:24 10/22/19 19:24 10/22/19 19:24 10/22/19 19:24 - Physical Exam General Appearance: Yes: Nourished, Appropriately Dressed. No: Apparent Distress HEENT: positive: EOMI, FEI, Normal Voice, Symmetrical, Pharynx Normal, Hearing Grossly Normal. negative: Scleral Icterus (R), Scleral Icterus (L) Neck: positive: Trachea midline, Normal Thyroid, Supple. negative: Tender, Rigid, Lymphadenopathy (R) Respiratory/Chest: positive: Lungs Clear, Normal Breath Sounds. negative: Chest Tender, Respiratory Distress, Accessory Muscle Use, Crackles, Rales, Rhonchi, Stridor, Wheezing Cardiovascular: positive: Regular Rhythm, Regular Rate Gastrointestinal/Abdominal: positive: Normal Bowel Sounds, Flat, Soft, Other ( well-healed midline laparotomy scar, 4x healing laparoscopy incisions, no discharge or bleeding). negative: Tender, Organomegaly, Guarding, Rebound, Tenderness Musculoskeletal: positive: Normal Inspection. negative: CVA Tenderness Extremity: positive: Normal Capillary Refill, Normal Inspection, Normal Range of Motion, Pelvis Stable. negative: Tender Integumentary: positive: Normal Color, Dry, Warm Neurologic: positive: cat dog or other pet groomer II-XII NML intact, Fully Oriented, Alert, Normal Mood/ Affect, Normal Response, Motor Strength /5 ED Treatment Course - LABORATORY CBC & Chemistry Diagram: 10/22/19 21:04 10/22/19 21:04 Medical Decision Making - Medical Decision Making 10/22/19 21:33 Patient presents 3 days after leaving AMA from hospital after laparoscopic internal hernia repair with abdominal pain and mild tenderness that is to be expected post-op, does not have any nausea or vomiting, tolerating PO well, no fevers/chills, able to walk well, no evidence of surgical site infections. VS stable. Was evaluated yesterday with normal VS and lab results. Will re-check basic labs for abnormalities including CBC/CMP. If normal, plan remains unchanged from evaluation yesterday, with office follow-up with Dr. Peterson next week and pain control. 10/22/19 22:18 Labs all WNL. Stable to be discharged home as planned. Discharge - Discharge Information Problems reviewed: Yes Clinical Impression/Diagnosis: Post-op pain Condition: Stable Disposition: HOME - Follow up/Referral Referrals: Caio Mckoy MD [Primary Care Provider] - Jesús Peterson MD [Staff Physician] - - Patient Discharge Instructions Patient Printed Discharge Instructions: How to Care for a Surgical Wound Additional Instructions: Today you were evaluated for abdominal pain after a surgery. We reviewed your records and found that you were discharged against medical advice for refusing to comply with hospital policies, which is why you were not given discharge paperwork. Your constipation is a normal problem after surgery that goes away with rest in about 3-5 days after the surgery. Yesterday, a doctor evaluated you and found that you did not have any acute problems, and spoke to your surgeon Dr. Peterson who recommends you see him in his office tomorrow. Your evaluation today does not reveal any problems in your labs or concerning findings on physical exam. Please follow-up with Dr. Peterson tomorrow or later in the week for further care. If you experience fever/chills, nausea, vomiting, or extreme abdominal pain, please return to the emergency room. - Post Discharge Activity
[2019-10-22 20:22] VITALS: BP 103/71; PULSE 85
--- NOTE | 2019-10-22 20:44 | PDOC ---
Documentation entered by Brianna Bolanos SCRIBE, acting as scribe for Lois Dodson MD. Lois Dodson MD: This documentation has been prepared by the scribe, Brianna Bolanos SCRIBE, under my direction and personally reviewed by me in its entirety. I confirm that the documentation accurately reflects all work, treatment, procedures, and medical decision making performed by me. Attending Attestation - Resident Resident Name: Julio César Hu - ED Attending Attestation I have performed the following: I have examined & evaluated the patient, The case was reviewed & discussed with the resident, I agree w/resident's findings & plan, Exceptions are as noted - HPI HPI: 10/22/19 21:05 The patient is a 44-year-old female with a past medical history significant for HTN, Asthma, GERD, RA, Depression, s/p gastric sleeve then a gastric bypass, s/ p internal abdominal hernia repair (10/[address] Peterson) who presents to the emergency department for reevaluation. The patient reports she had her surgery on the , following the surgery, the patient was admitted for overnight observation. The patient AMAed from the hospital got dressed in her street clothes and was gone for 3 hours. The patient later returned to [facility] ER, requesting to be reevaluated. The patient had labs done and was scheduled to follow up with Dr. Peterson. The patient presents today for reevaluation because the patient reports she didnt receive her discharge instructions and prescribed antibiotics. - Physicial Exam PE: 10/22/19 21:53 Nourished well-developed 44-year-old female states that she did not get any discharge instructions On the after her internal hernia repair -Also she states she was supposed to have antibiotics upon discharge on 10/21/19 Patient did have repair of internal abdominal hernia by Dr. Peterson Lungs clear to auscultation bilaterally CVS regular rate rhythm S1-S2 Skin warm and dry Abd,mal exam she has bowel sounds, no rebound or guarding on her abdominal exam,Her Surgical site has no drainage or erythema Neuro patient has been ambulating in the ER with ease, alert and oriented x3 10/22/19 21:55 10/22/19 21:59 - Medical Decision Making 10/22/19 22:00 Stable vital signs, no fever Benign abdominal exam CBC is unremarkable Chemistries are unremarkable Patient is to follow-up with her surgeon
[2019-10-22 21:15] LABS: HEMOGLOBIN 10.2 GM/dL (10.7-15.3); RBC 3.24 M/mm3 (3.60-5.2); WHITE BLOOD COUNT 5.5 K/mm3 (4.0-10.0)
[2019-10-22 21:16] LABS: BASO % 0.5 % (0-2.0); EOS % 1.5 % (0-4.5); HEMATOCRIT 31.1 % (32.4-45.2); LYMPH % 14.7 % (8-40); MCH 31.3 pg (25.7-33.7); MCHC 32.6 g/dl (32.0-36.0); MEAN CELL VOLUME 95.9 fl (80-96); MEAN PLT VOLUME 7.6 fl (7.5-11.1); MONO % 6.8 % (3.8-10.2); NEUT % 76.5 % (42.8-82.8); PLATELET COUNT 296 K/MM3 (134-434); RDW 15.4 % (11.6-15.6)
[2019-10-22 21:39] LABS: ALBUMIN 2.8 g/dl (3.4-5.0); BILIRUBIN,TOTAL 0.2 mg/dL (0.2-1); BLOOD UREA NITROGEN 11.6 mg/dL (7-18); CALCIUM 8.2 mg/dL (8.5-10.1); CREATININE 0.8 mg/dL (0.55-1.3); POTASSIUM 4.3 mmol/L (3.5-5.1); TOT PROT 6.1 g/dl (6.4-8.2)
== END 2019-10-22 22:57 | disposition home or self-care (01) ==
LOC: JER 19:02
DX: G89.18 Other acute postprocedural pain (principal); R10.9 Unspecified abdominal pain; I10 Essential (primary) hypertension; J45.909 Unspecified asthma, uncomplicated; K21.9 Gastro-esophageal reflux disease without esophagitis; F41.8 Other specified anxiety disorders; F32.9 Major depressive disorder, single episode, unspecified; M79.7 Fibromyalgia; M06.9 Rheumatoid arthritis, unspecified; Z98.84 Bariatric surgery status; Z90.49 Acquired absence of other specified parts of digestive tract
CPT/HCPCS: 36415; 80053; 85025; 99282-25

== ENCOUNTER 2019-10-25 19:39 | Emergency (ER) | payer BC ==
--- NOTE | 2019-10-25 20:01 | PDOC ---
Documentation entered by Brianna Bolanos SCRIBE, acting as scribe for Luis Cornelius MD. Luis Cornelius MD: This documentation has been prepared by the allanibe, Brianna Bolanos SCRIBE, under my direction and personally reviewed by me in its entirety. I confirm that the documentation accurately reflects all work, treatment, procedures, and medical decision making performed by me. History of Present Illness - General Chief Complaint: Pain Stated Complaint: ABDOMINAL PAIN Time Seen by Provider: 10/25/19 19:45 - History of Present Illness Initial Comments: 10/25/19 20:02 44 F with h/o rheumatoid arthritis, HTN, asthma, fibromyalgia, recent surgery to correct internal hernia, presenting to ED with abdominal pain. Pt left the hospital on POD#0 and returned to the ER the same day for abdominal pain. She was prescribed percocet 5/325, which she states has not been sufficient to treat her pain. Pt returned to the ER the next day and was told that her pain was likely due to constipation. Since then, pt notes having a large BM, which dramatically improved her pain. Pt denies any N/V. Denies any constipation currently. Pt states that she ran out of her pain medication today and spoke with Dr. Peterson, who instructed her to come to the hospital. Pt denies any new pain. Denies F/C. Past History - Past Medical History Allergies/Adverse Reactions: Allergies Allergy/AdvReac Type Severity Reaction Status Date / Time shellfish derived Allergy Intermediate Hives Verified 10/26/19 11:38 bupropion HCl Allergy Rash Verified 10/26/19 11:38 [From Wellbutrin] Home Medications: Ambulatory Orders Albuterol Sulfate [Proair Respiclick] 90 mcg IH PRN PRN 05/10/17 Zolpidem Tartrate [Ambien] 10 mg PO HS 06/04/17 cloNIDine HCL [Catapres -] 0.1 mg PO BID 06/11/17 Clonazepam [Klonopin] 2 mg PO BID 07/20/17 Amlodipine Besylate [Norvasc -] 10 mg PO DAILY 09/23/18 Budesonide/Formeterol Fumarate [SYMBICORT 160/4.5mcg -] 1 inh PO BID 10/28/18 Etanercept [Enbrel] 50 mg SQ WEEKLY 10/28/18 Diphenhydramine HCl [Benadryl Capsule -] 100 mg PO DAILY 03/09/19 Esomeprazole Magnesium [Nexium 24Hr] 40 mg PO DAILY 03/09/19 Mag Hydrox/Al Hydrox/Simeth [Mylanta Oral Suspension -] 30 ml PO Q6H PRN #28 cup 03/09/19 Polyethylene Glycol 3350 [Miralax 119 gm Btl -] 17 gm PO DAILY #1 bottle Sertraline HCl 100 mg PO HS 07/22/19 Fluconazole 200 mg PO DAILY #3 tablet 09/20/19 Nystatin/Dpha/Lido/Sucrafate [Nystatin Mouth Rinse *Df Formula*] 5 ml MM Q6HPO # 120 bottle 09/20/19 Fluconazole [Diflucan] 150 mg PO ONCE #2 tablet 09/23/19 Nystatin Oral Suspension - [Nystatin Oral Susp 786334 Units/5 ML -] 500,000 units PO Q6H #56 cup 09/23/19 Oxycodone HCl/Acetaminophen [Percocet 5-325 mg Tablet] 1 tab PO Q6H PRN #14 tablet MDD 4 10/21/19 Oxycodone HCl/Acetaminophen [Percocet 10-325 mg Tablet] 1 each PO Q8H PRN #15 tablet MDD 3 10/26/19 Anemia: Yes Asthma: Yes (USES INHALER,PROAIR, was unable to refill inhaler) Cancer: No Cardiac Disorders: No CVA: No COPD: No CHF: No Dementia: No Diabetes: No GI Disorders: Yes (GERD) Disorders: No HTN: Yes Hypercholesterolemia: No Liver Disease: No Psychiatric Problems: Yes (DEPRESSION, anxiety) Seizures: No Thyroid Disease: No - Surgical History Abdominal Surgery: Yes (VERTICAL SLEEVE GASTRECTOMY 2012, ABDOMINOPLASTY/AND REVISION, LIPO X2,) Appendectomy: No Cardiac Surgery: No Cholecystectomy: No GI Surgery: Yes (GASTRIC BYPASS and gastric sleeve) Lung Surgery: No Neurologic Surgery: No Orthopedic Surgery: Yes (RIGHT KNEE, SHOULDER SX, WRIST SX) - Immunization History Td Vaccination: Yes TDAP Vaccination: Yes Immunization Up to Date: Yes - Psycho Social/Smoking Cessation Hx Smoking Status: No Smoking History: Never smoked Years of Tobacco Use: 24 Have you smoked in the past 12 months: Yes Number of Cigarettes Smoked Daily: 15 If you are a former smoker, when did you quit?: 10/14/18 'Breaking Loose' booklet given: 10/21/19 Hx Alcohol Use: No Drug/Substance Use Hx: No Substance Use Type: None Hx Substance Use Treatment: No Review of Systems - Review of Systems Comments:: 10/25/19 20:10 "GENERAL/CONSTITUTIONAL: No fever or chills. No weakness. HEAD, EYES, EARS, NOSE AND THROAT: No change in vision. No ear pain or discharge. No sore throat. CARDIOVASCULAR: No chest pain, no shortness of breath, no loss of consciousness RESPIRATORY: No cough, wheezing, or hemoptysis. GASTROINTESTINAL: + abdominal pain, No nausea, vomiting, diarrhea or constipation. GENITOURINARY: No dysuria, frequency, or change in urination. MUSCULOSKELETAL: No joint or muscle swelling or pain. No neck or back pain. SKIN: No rash NEUROLOGIC: No vertigo, no change in strength/sensation. ENDOCRINE: No increased thirst. No abnormal weight change. HEMATOLOGIC/LYMPHATIC: No anemia, easy bleeding, or history of blood clots. ALLERGIC/IMMUNOLOGIC: No hives or skin allergy. *Physical Exam - Physical Exam 10/25/19 20:10 "GENERAL: Awake, alert, and fully oriented, in no acute distress. HEAD: No signs of trauma EYES: PERRLA, EOMI, sclera anicteric, conjunctiva clear ENT: Auricles normal inspection, hearing grossly normal, nares patent, oropharynx clear without exudates. Moist mucosa NECK: Nontender, no stepoffs, Normal ROM, supple, no lymphadenopathy, JVD, or masses LUNGS: Breath sounds equal, clear to auscultation bilaterally. No wheezes, and no crackles HEART: Regular rate and rhythm, normal S1 and S2, no murmurs, rubs or gallops ABDOMEN: + epigastric TTP, normoactive bowel sounds. No guarding, no rebound. No masses EXTREMITIES: Normal range of motion, no edema. No clubbing or cyanosis. No cords, erythema, or tenderness NEUROLOGICAL: Cranial nerves II through XII intact. 5/5 strength and sensation in all extremities, Normal speech, normal gait, normal cerebellar function SKIN: Warm, Dry, normal turgor, no rashes or lesions noted. Medical Decision Making - Medical Decision Making 10/25/19 20:11 44 F with abdominal pain s/p repair of internal hernia 4 days ago. Her 3rd ED visit since leaving the hospital AMA. Now complaining of persistent pain after running out of her pain medications. - Upright abdominal XR to r/o obstructive process - One dose of percocet 10/25/19 20:37 XR obtained in supine position Pt without any clinical signs of obstruction, is tolerating PO in the ED Pt's pain is likely normal post-op pain, no evidence of acute emergency Attempted to call Dr. Peterson's office, but no answering service available. Will give one dose of percocet and DC with outpt surgery f/u Pt is well appearing, with normal vitals. Clinically stable for DC at this time. I discussed the physical exam findings, ancillary test results and final diagnoses with the patient. I answered all of the patient's questions. The patient was satisfied with the care received and felt comfortable with the discharge plan and treatment plan. The patient agrees to follow up with the primary care physician within 24-72 hours. Discharge - Discharge Information Problems reviewed: Yes Clinical Impression/Diagnosis: Abdominal pain, S/P gastric bypass, Post-operative pain Disposition: HOME - Additional Discharge Information Prescriptions: Oxycodone HCl/Acetaminophen [Percocet 10-325 mg Tablet] 1 each PO Q8H PRN #15 tablet MDD 3 PRN Reason: Pain - Follow up/Referral - Patient Discharge Instructions Patient Printed Discharge Instructions: DI for Postoperative Pain Additional Instructions: Follow up with Dr. Peterson tomorrow for further evaluation of your abdominal pain. If you experience worsening pain, fevers, vomiting, or any other concerning symptoms, return to the ER immediately. - Post Discharge Activity
[2019-10-25 20:31] VITALS: BP 124/76; PULSE 87; TEMP 98.2; BMI 24.8
[2019-10-25] MEDS ORDERED: oxyCODONE HCL 5 MG TABLET PO ONE (20:44)
[2019-10-25] MEDS ORDERED: oxyCODONE HCL 5 MG TABLET ONE (20:50)
--- NOTE | 2019-10-26 15:30 | CONSULT ---
Consult - text type - Consultation Consultation Note: Bariatric Surgery Pt 6 days S/P Laparoscopy plus Repair of internal abdominal hernia Pt remains rather uncomfortable post-op Saw pt in office 10/24/2019 for pain and bloating P/E at that time revealed moderate amount of abdominal distention and mild/moderate tenderness on palpation Pt stated she had not had a BM since surgery, so went home and took Magnesium sulfate and had large BM Pt presents today with mid-abdominal pain in area of incisions and around sides P/E- Gen awake, alert , c/o moderate pain from abdominal incisions Abd- all incisions healing well glue in place- no reaction, no cellulitis noted no drainage from any incisions soft, non-tender on palpation except directly over incisions no guarding, no rebound tenderness WBC-5.7 H/H-10.9/34.1 CT Scan- Abd/Pelvis- No significant pathology no free fluid, free air, or obstruction I- Incisional discomfort 5-6 days post Laparoscopic internal hernia repair No acute pathology on CT or lab-work Rec- PO diet as tolerated No strenuous activity 3-4 days of pain meds Follow-up in Bariatric office in 1 week
== END 2019-10-25 21:01 | disposition home or self-care (01) ==
LOC: FER 19:39
DX: Z98.84 Bariatric surgery status (principal); G89.18 Other acute postprocedural pain; R10.9 Unspecified abdominal pain; Z91.013 Allergy to seafood; Z88.8 Allergy status to other drugs, medicaments and biological substances; Z87.891 Personal history of nicotine dependence; F41.8 Other specified anxiety disorders; J45.909 Unspecified asthma, uncomplicated; I10 Essential (primary) hypertension
CPT/HCPCS: 74018-TC-FY; 99282-25

== ENCOUNTER 2019-10-26 11:36 | Emergency (ER) | payer BC ==
[2019-10-26 11:45] VITALS: BP 114/75; PULSE 87; TEMP 98.3; BMI 25.0
--- NOTE | 2019-10-26 12:12 | PDOC ---
History of Present Illness - General Chief Complaint: Pain Stated Complaint: PAIN Time Seen by Provider: 10/26/19 11:59 History Source: Patient Exam Limitations: No Limitations - History of Present Illness Initial Comments: 44 yo F history HTN, depression, anxiety, prior gastric sleeve followed by a subsequent gastric bypass presents with abd pain. She was recently admitted for an internal hernia which was repaired. She eloped from the inpatient [facility] on POD 0 and has had multiple subsequent ED admissions for pain. She states the abd pain is constant. Associated with constipation and bloating. Denies fever, chills, vomiting, diarrhea. Past History - Past Medical History Allergies/Adverse Reactions: Allergies Allergy/AdvReac Type Severity Reaction Status Date / Time shellfish derived Allergy Intermediate Hives Verified 10/26/19 11:38 bupropion HCl Allergy Rash Verified 10/26/19 11:38 [From Wellbutrin] Home Medications: Ambulatory Orders Albuterol Sulfate [Proair Respiclick] 90 mcg IH PRN PRN 05/10/17 Zolpidem Tartrate [Ambien] 10 mg PO HS 06/04/17 cloNIDine HCL [Catapres -] 0.1 mg PO BID 06/11/17 Clonazepam [Klonopin] 2 mg PO BID 07/20/17 Amlodipine Besylate [Norvasc -] 10 mg PO DAILY 09/23/18 Budesonide/Formeterol Fumarate [SYMBICORT 160/4.5mcg -] 1 inh PO BID 10/28/18 Etanercept [Enbrel] 50 mg SQ WEEKLY 10/28/18 Diphenhydramine HCl [Benadryl Capsule -] 100 mg PO DAILY 03/09/19 Esomeprazole Magnesium [Nexium 24Hr] 40 mg PO DAILY 03/09/19 Mag Hydrox/Al Hydrox/Simeth [Mylanta Oral Suspension -] 30 ml PO Q6H PRN #28 cup 03/09/19 Polyethylene Glycol 3350 [Miralax 119 gm Btl -] 17 gm PO DAILY #1 bottle Sertraline HCl 100 mg PO HS 07/22/19 Fluconazole 200 mg PO DAILY #3 tablet 09/20/19 Nystatin/Dpha/Lido/Sucrafate [Nystatin Mouth Rinse *Df Formula*] 5 ml MM Q6HPO # 120 bottle 09/20/19 Fluconazole [Diflucan] 150 mg PO ONCE #2 tablet 09/23/19 Nystatin Oral Suspension - [Nystatin Oral Susp 704727 Units/5 ML -] 500,000 units PO Q6H #56 cup 09/23/19 Oxycodone HCl/Acetaminophen [Percocet 5-325 mg Tablet] 1 tab PO Q6H PRN #14 tablet MDD 4 10/21/19 Oxycodone HCl/Acetaminophen [Percocet 10-325 mg Tablet] 1 each PO Q8H PRN #15 tablet MDD 3 10/26/19 Anemia: Yes Asthma: Yes (USES INHALER,PROAIR, was unable to refill inhaler) Cancer: No Cardiac Disorders: No CVA: No COPD: No CHF: No Dementia: No Diabetes: No GI Disorders: Yes (GERD) Disorders: No HTN: Yes Hypercholesterolemia: No Liver Disease: No Psychiatric Problems: Yes (DEPRESSION, anxiety) Seizures: No Thyroid Disease: No - Surgical History Abdominal Surgery: Yes (VERTICAL SLEEVE GASTRECTOMY 2012, ABDOMINOPLASTY/AND REVISION, LIPO X2,) Appendectomy: No Cardiac Surgery: No Cholecystectomy: No GI Surgery: Yes (GASTRIC BYPASS and gastric sleeve) Lung Surgery: No Neurologic Surgery: No Orthopedic Surgery: Yes (RIGHT KNEE, SHOULDER SX, WRIST SX) - Immunization History Td Vaccination: Yes TDAP Vaccination: Yes Immunization Up to Date: Yes - Psycho Social/Smoking Cessation Hx Smoking Status: No Smoking History: Current every day smoker Years of Tobacco Use: 24 Have you smoked in the past 12 months: Yes Number of Cigarettes Smoked Daily: 15 If you are a former smoker, when did you quit?: 10/14/18 Information on smoking cessation initiated: Yes 'Breaking Loose' booklet given: 10/21/19 Hx Alcohol Use: No Drug/Substance Use Hx: No Substance Use Type: None Hx Substance Use Treatment: No Review of Systems - Review of Systems Able to Perform ROS?: Yes Comments:: GENERAL/CONSTITUTIONAL: No fever or chills. No weakness. HEAD, EYES, EARS, NOSE AND THROAT: No change in vision. No ear pain or discharge. No sore throat. CARDIOVASCULAR: No chest pain or shortness of breath. RESPIRATORY: No cough, wheezing, or hemoptysis. GASTROINTESTINAL: No nausea, vomiting, diarrhea. +Constipation. +Abd pain GENITOURINARY: No dysuria, frequency, or change in urination. MUSCULOSKELETAL: No joint or muscle swelling or pain. No neck or back pain. SKIN: No rash. NEUROLOGIC: No headache, vertigo, loss of consciousness, or change in strength/ sensation. ENDOCRINE: No increased thirst. No abnormal weight change. HEMATOLOGIC/LYMPHATIC: No anemia, easy bleeding, or history of blood clots. ALLERGIC/IMMUNOLOGIC: No hives or skin allergy. *Physical Exam - Vital Signs Last Vital Signs Temp Pulse Resp BP Pulse Ox 98.3 F 87 20 114/75 100 10/26/19 11:37 10/26/19 11:37 10/26/19 11:37 10/26/19 11:37 10/26/19 11:37 - Physical Exam GENERAL: Awake, alert, and fully oriented, in no acute distress HEAD: No signs of trauma EYES: PERRLA, EOMI, sclera anicteric, conjunctiva clear ENT: Auricles normal inspection, hearing grossly normal, nares patent, oropharynx clear without exudates. Moist mucosa NECK: Normal ROM, supple, no lymphadenopathy, JVD, or masses LUNGS: Breath sounds equal, clear to auscultation bilaterally. No wheezes, and no crackles HEART: Regular rate and rhythm, normal S1 and S2, no murmurs, rubs or gallops ABDOMEN: Soft, +diffuse moderate tenderness, hyperactive bowel sounds. +Guarding , no rebound. No masses EXTREMITIES: Normal range of motion, no edema. No clubbing or cyanosis. No cords, erythema, or tenderness NEUROLOGICAL: Cranial nerves II through XII grossly intact. Normal speech, normal gait. Motor and sensation intact SKIN: Warm, dry, normal turgor, no rashes or lesions noted. ED Treatment Course - LABORATORY CBC & Chemistry Diagram: 10/26/19 12:43 10/26/19 12:43 Medical Decision Making - Medical Decision Making 10/26/19 12:13 Case d/w Dr. Peterson in the ED, who recommended bloodwork and CT a/p to r/o perf. 10/26/19 13:20 Pt has history of difficulty with obtaining IVs. Agreed to [facility] for labs. Will obtain CT a/p with PO contrast and d/w Dr. Peterson. 10/26/19 15:15 CT results d/w Dr. Peterson, will come to ED to discuss with patient. Discharge - Discharge Information Problems reviewed: Yes Clinical Impression/Diagnosis: Post-operative pain Condition: Stable Disposition: HOME - Admission No - Follow up/Referral Referrals: Jesús Peterson MD [Staff Physician] - - Patient Discharge Instructions Patient Printed Discharge Instructions: DI for Abdominal Pain-Adult - Post Discharge Activity
[2019-10-26 12:58] LABS: HEMATOCRIT 34.1 % (32.4-45.2); HEMOGLOBIN 10.9 GM/dl (10.7-15.3); MCH 30.9 pg (25.7-33.7); MEAN CELL VOLUME 96.4 fl (80-96); MEAN PLT VOLUME 7.7 fl (7.5-11.1); PLATELET COUNT 379 K/MM3 (134-434); RBC 3.54 M/mm3 (3.60-5.2); RDW 14.9 % (11.6-15.6); WHITE BLOOD COUNT 5.7 K/mm3 (4.0-10.8)
[2019-10-26 13:08] LABS: ALBUMIN 3.1 g/dl (3.4-5.0); BILIRUBIN,TOTAL 0.6 mg/dl (0.2-1); CALCIUM 7.9 mg/dl (8.5-10); CREATININE 0.7 mg/dl (0.55-1.3); POTASSIUM 3.6 mmol/L (3.5-5.1); TOT PROT 6.3 g/dl (6.4-8.2)
[2019-10-26 13:16] LABS: ADD RBC MORPHOLOGY YES
[2019-10-26 13:45] LABS: ANISOCYTOSIS 1+; PLATELET ESTIMATE ADEQUATE; TARGET CELLS FEW
== END 2019-10-26 15:45 | disposition home or self-care (01) ==
LOC: FER 11:36
DX: G89.18 Other acute postprocedural pain (principal); Z91.013 Allergy to seafood; Z88.8 Allergy status to other drugs, medicaments and biological substances; F17.210 Nicotine dependence, cigarettes, uncomplicated; F41.8 Other specified anxiety disorders; K21.9 Gastro-esophageal reflux disease without esophagitis; I10 Essential (primary) hypertension
CPT/HCPCS: 36415; 74176-TC; 80053; 85025; 99282-25

== ENCOUNTER 2019-10-30 21:05 | Inpatient (IN) | payer BC ==
[2019-10-30 21:19] VITALS: BMI 23.8
[2019-10-30 22:11] LABS: BASO % 0.5 % (0-2.0); EOS % 0.9 % (0-4.5); HEMATOCRIT 35.8 % (32.4-45.2); HEMOGLOBIN 11.6 GM/dl (10.7-15.3); LYMPH % 18.2 % (8-40); MCH 30.9 pg (25.7-33.7); MCHC 32.4 g/dl (32.0-36.0); MEAN CELL VOLUME 95.3 fl (80-96); MEAN PLT VOLUME 7.6 fl (7.5-11.1); NEUT % 74.4 % (42.8-82.8); PLATELET COUNT 509 K/MM3 (134-434); RBC 3.75 M/mm3 (3.60-5.2); RDW 15.5 % (11.6-15.6); WHITE BLOOD COUNT 8.1 K/mm3 (4.0-10.8)
[2019-10-30 22:15] LABS: ALBUMIN 3.3 g/dl (3.4-5.0); BILIRUBIN,TOTAL 0.6 mg/dl (0.2-1); CALCIUM 8.4 mg/dl (8.5-10); CREATININE 0.7 mg/dl (0.55-1.3); POTASSIUM 4.1 mmol/L (3.5-5.1); TOT PROT 6.8 g/dl (6.4-8.2)
--- NOTE | 2019-10-30 23:07 | PDOC ---
Documentation entered by Brianna Bolanos SCRIBE, acting as scribe for Víctor Way MD. Víctor Way MD: This documentation has been prepared by the allanibe, Brianna Bolanos SCRIBE, under my direction and personally reviewed by me in its entirety. I confirm that the documentation accurately reflects all work, treatment, procedures, and medical decision making performed by me. History of Present Illness - General Chief Complaint: Pain Stated Complaint: ABDOMINAL PAIN,CONSTIPATION History Source: Patient Exam Limitations: No Limitations - History of Present Illness Initial Comments: 10/30/19 21:31 The patient is a 44-year-old female with a past medical history significant for HTN, Asthma, GERD, RA, Depression, s/p gastric sleeve then a gastric bypass, s/ p internal abdominal hernia repair (10/[address] Peterson) who presents to the emergency department with abdominal pain and constipation. The patient reports shes been unable to have a bowel movement for the past two days, associated with left-sided abdominal pain. The patient states she had a normal bowel movement two days ago. Past History - Past Medical History Allergies/Adverse Reactions: Allergies Allergy/AdvReac Type Severity Reaction Status Date / Time shellfish derived Allergy Intermediate Hives Verified 10/30/19 21:09 bupropion HCl Allergy Rash Verified 10/30/19 21:09 [From Wellbutrin] Home Medications: Ambulatory Orders Albuterol Sulfate [Proair Respiclick] 90 mcg IH PRN PRN 05/10/17 Zolpidem Tartrate [Ambien] 10 mg PO HS 06/04/17 cloNIDine HCL [Catapres -] 0.1 mg PO BID 06/11/17 Clonazepam [Klonopin] 2 mg PO BID 07/20/17 Amlodipine Besylate [Norvasc -] 10 mg PO DAILY 09/23/18 Budesonide/Formeterol Fumarate [SYMBICORT 160/4.5mcg -] 1 inh PO BID 10/28/18 Etanercept [Enbrel] 50 mg SQ WEEKLY 10/28/18 Diphenhydramine HCl [Benadryl Capsule -] 100 mg PO DAILY 03/09/19 Esomeprazole Magnesium [Nexium 24Hr] 40 mg PO DAILY 03/09/19 Mag Hydrox/Al Hydrox/Simeth [Mylanta Oral Suspension -] 30 ml PO Q6H PRN #28 cup 03/09/19 Polyethylene Glycol 3350 [Miralax 119 gm Btl -] 17 gm PO DAILY #1 bottle Sertraline HCl 100 mg PO HS 07/22/19 Fluconazole 200 mg PO DAILY #3 tablet 09/20/19 Nystatin/Dpha/Lido/Sucrafate [Nystatin Mouth Rinse *Df Formula*] 5 ml MM Q6HPO # 120 bottle 09/20/19 Fluconazole [Diflucan] 150 mg PO ONCE #2 tablet 09/23/19 Nystatin Oral Suspension - [Nystatin Oral Susp 132293 Units/5 ML -] 500,000 units PO Q6H #56 cup 09/23/19 Oxycodone HCl/Acetaminophen [Percocet 5-325 mg Tablet] 1 tab PO Q6H PRN #14 tablet MDD 4 10/21/19 Oxycodone HCl/Acetaminophen [Percocet 10-325 mg Tablet] 1 each PO Q8H PRN #15 tablet MDD 3 10/26/19 Anemia: Yes Asthma: Yes (USES INHALER,PROAIR, was unable to refill inhaler) Cancer: No Cardiac Disorders: No CVA: No COPD: No CHF: No Dementia: No Diabetes: No GI Disorders: Yes (GERD) Disorders: No HTN: Yes Hypercholesterolemia: No Liver Disease: No Psychiatric Problems: Yes (DEPRESSION, anxiety) Seizures: No Thyroid Disease: No - Surgical History Abdominal Surgery: Yes (VERTICAL SLEEVE GASTRECTOMY 2012, ABDOMINOPLASTY/AND REVISION, LIPO X2,) Appendectomy: No Cardiac Surgery: No Cholecystectomy: No GI Surgery: Yes (GASTRIC BYPASS and gastric sleeve) Lung Surgery: No Neurologic Surgery: No Orthopedic Surgery: Yes (RIGHT KNEE, SHOULDER SX, WRIST SX) - Immunization History Td Vaccination: Yes TDAP Vaccination: Yes Immunization Up to Date: Yes - Psycho Social/Smoking Cessation Hx Smoking Status: No Smoking History: Current every day smoker Years of Tobacco Use: 24 Have you smoked in the past 12 months: Yes Number of Cigarettes Smoked Daily: 15 If you are a former smoker, when did you quit?: 10/14/18 'Breaking Loose' booklet given: 10/21/19 Hx Alcohol Use: No Drug/Substance Use Hx: No Substance Use Type: None Hx Substance Use Treatment: No Review of Systems - Review of Systems Able to Perform ROS?: Yes Comments:: 10/30/19 21:31 Constitutional - Pt denies Fever, Chills, weakness, HEENT: denies vision changes, sore throat Respiratory: Denies cough, sob, hemoptysis Cardiac: denies chest pain, palpitations, light headedness, leg swelling Abd/GI: +abdominal pain and constipation. Denies nausea, vomiting, blood pre rectum or diarrhea. : denies dysuria, frequency, discharge Musculskelatal - denies back pain, joint swelling skin - denies bruising, erythema, rash neurological: denies headache, numbness, focal weakness, tingling, ataxia, weakness hematologic: denies anemia, easy bruising, easy bleeding. *Physical Exam - Vital Signs Last Vital Signs Temp Pulse Resp BP Pulse Ox 98 F 85 16 142/90 100 10/30/19 21:11 10/30/19 21:11 10/30/19 21:11 10/30/19 21:11 10/30/19 21:11 - Physical Exam 10/30/19 22:28 CONSTITUTIONAL: Well-appearing; well-nourished; in no apparent distress HEAD: Normocephalic; atraumatic EYES: PERRL; EOM intact ENMT: External appears normal NECK: Supple; non-tender CARD: Normal S1, S2; no murmurs, rubs, or gallops RESP: breath sounds clear and equal bilaterally; no wheezes, rhonchi, or rales ABD: +diffused abdominal tenderness, distended. EXT: Normal ROM in all four extremities; non-tender SKIN: Warm, dry, no rash NEURO: No focal neurological deficiencies. ED Treatment Course - LABORATORY CBC & Chemistry Diagram: 10/30/19 21:55 10/30/19 21:55 - ADDITIONAL ORDERS Additional order review: Laboratory Results 10/30/19 21:55 Sodium 130 L Potassium 4.1 Chloride 96 L Carbon Dioxide 22 Anion Gap 12 BUN 11.0 Creatinine 0.7 Est GFR (CKD-EPI)AfAm 122.99 Est GFR (CKD-EPI)NonAf 106.12 Random Glucose 93 Calcium 8.4 L Total Bilirubin 0.6 AST 20 ALT 18 Alkaline Phosphatase 120 H D Total Protein 6.8 Albumin 3.3 L 10/30/19 21:55 RBC 3.75 MCV 95.3 MCHC 32.4 RDW 15.5 MPV 7.6 Neutrophils % 74.4 Lymphocytes % 18.2 Monocytes % 6.0 Eosinophils % 0.9 Basophils % 0.5 - RADIOLOGY Radiology Studies Ordered: Category Date Time Status ABDOMEN & PELVIS CT WITH CONTR [CT] Stat CT Scan 10/30/19 21:42 Ordered ABDOMEN FLAT & UPRIGHT [RAD] Stat Radiology 10/30/19 21:11 Taken Medical Decision Making - Medical Decision Making 10/31/19 06:51 medical record review case d/w Artuso persistent pain and tenderness despie unremarkable ED feldman labs/ imaging reviewed will admit for IV fluids, stomach regimen, serial abd exams Discharge - Discharge Information Problems reviewed: Yes Clinical Impression/Diagnosis: Post-operative complication Qualifiers: Surgical complication system/body Area: digestive system Surgical complication type: unspecified Procedure type: digestive system Qualified Code(s): K91.89 - Other postprocedural complications and disorders of digestive system Condition: Stable - Admission Yes - Follow up/Referral - Patient Discharge Instructions - Post Discharge Activity
[2019-10-31] MEDS ORDERED: SODIUM CHLORIDE 0.9% 500 ML INFUS.BAG IV ONE (01:41)
[2019-10-31] MEDS ORDERED: FAMOTIDINE 20 MG/50 ML IVPB 20 MG/50 ML MG IVPB ONE ×2 (01:41→01:49)
[2019-10-31] MEDS ORDERED: DEXTROSE 5%-0.45% SALINE 1,000 ML IV SCH (01:45)
[2019-10-31 07:32] LABS: CALCIUM 8.3 mg/dl (8.5-10); CREATININE 0.6 mg/dl (0.55-1.3); POTASSIUM 4.3 mmol/L (3.5-5.1)
[2019-10-31 08:14] LABS: BASO % 0.8 % (0-2.0); EOS % 0.5 % (0-4.5); HEMATOCRIT 38.4 % (32.4-45.2); LYMPH % 23.9 % (8-40); MCH 30.8 pg (25.7-33.7); MCHC 31.9 g/dl (32.0-36.0); MEAN CELL VOLUME 96.5 fl (80-96); MONO % 10.3 % (3.8-10.2); NEUT % 64.5 % (42.8-82.8); PLATELET COUNT 491 K/MM3 (134-434); RBC 3.98 M/mm3 (3.60-5.2); RDW 15.8 % (11.6-15.6)
[2019-10-31 08:16] LABS: HEMOGLOBIN 12.3 GM/dl (10.7-15.3)
[2019-10-31] MEDS ORDERED: NICOTINE 14 MG/24 HOURS TOPICAL PATCH TD SCH (10:00)
[2019-10-31] MEDS ORDERED: NICOTINE 21 MG/24 HOURS TOPICAL PATCH TD SCH ×2 (10:00→22:00)
[2019-10-31] MEDS ORDERED: MAG HYDROX/AL HYDROX/SIMETH 30 ML UNIT-DOSE CUP PO PRN (13:08)
[2019-10-31] MEDS ORDERED: PATIENT'S OWN MEDICATION (NON-FORMULARY) (Albuterol Sulfate [Proair Respiclick] 90 MCG) IH PRN (13:08)
[2019-10-31] MEDS ORDERED: PATIENT'S OWN MEDICATION (NON-FORMULARY) (Etanercept [Enbrel] 50 MG) SQ SCH (13:15)
[2019-10-31 14:11] VITALS: BP 132/79; PULSE 63; TEMP 99.2
--- NOTE | 2019-10-31 16:14 | HP ---
Admitting History and Physical - Primary Care Physician PCP: Zane Mckoy - Admission Chief Complaint: Abdominal pain, Constipation History of Present Illness: Patient is a 44 y/o female with past medical history of HTN, Asthma, GERD, RA, Depression, s/p gastric sleeve, s/p gastric bypass, s/p internal abdominal hernia repair on 10/20/2019. Patient presented to ER after worsening LLQ abdominal pain with constipation. She states having poor appetite due to the abdominal pain. Denies nausea or vomiting with abdominal pain. History Source: Patient Limitations to Obtaining History: No Limitations - Past Medical History Cardiovascular: Yes: HTN Pulmonary: Yes: Sleep Apnea Gastrointestinal: Yes: GERD ...LMP: 04/18/18 Psych: Yes: Anxiety, Panic Rheumatology: Yes: Fibromyalgia - Past Surgical History Past Surgical History: Yes: Arthrosocopy (B/L knee), Bypass (vertical sleeve gastrectomy 2011, abdominoplasty and lipo x 2) - Smoking History Smoking history: Current every day smoker Have you smoked in the past 12 months: Yes Aproximately how many cigarettes per day: 15 If you are a former smoker, when did you quit?: 10/14/18 - Alcohol/Substance Use Hx Alcohol Use: No - Social History ADL: Independent Home Medications - Allergies Allergies/Adverse Reactions: Allergies Allergy/AdvReac Type Severity Reaction Status Date / Time shellfish derived Allergy Intermediate Hives Verified 10/30/19 21:09 bupropion HCl Allergy Rash Verified 10/30/19 21:09 [From Wellbutrin] - Home Medications Home Medications: Ambulatory Orders Albuterol Sulfate [Proair Respiclick] 90 mcg IH PRN PRN 05/10/17 Zolpidem Tartrate [Ambien] 10 mg PO HS 06/04/17 cloNIDine HCL [Catapres -] 0.1 mg PO BID 06/11/17 Clonazepam [Klonopin] 2 mg PO BID 07/20/17 Amlodipine Besylate [Norvasc -] 10 mg PO DAILY 09/23/18 Budesonide/Formeterol Fumarate [SYMBICORT 160/4.5mcg -] 1 inh PO BID 10/28/18 Etanercept [Enbrel] 50 mg SQ WEEKLY 10/28/18 Diphenhydramine HCl [Benadryl Capsule -] 100 mg PO DAILY 06/13/19 Esomeprazole Magnesium [Nexium 24Hr] 40 mg PO DAILY 03/09/19 Mag Hydrox/Al Hydrox/Simeth [Mylanta Oral Suspension -] 30 ml PO Q6H PRN #28 cup 03/09/19 Polyethylene Glycol 3350 [Miralax 119 gm Btl -] 17 gm PO DAILY #1 bottle Sertraline HCl 100 mg PO HS 07/22/19 Fluconazole 200 mg PO DAILY #3 tablet 09/20/19 Nystatin/Dpha/Lido/Sucrafate [Nystatin Mouth Rinse *Df Formula*] 5 ml MM Q6HPO # 120 bottle 09/20/19 Fluconazole [Diflucan] 150 mg PO ONCE #2 tablet 09/23/19 Nystatin Oral Suspension - [Nystatin Oral Susp 442756 Units/5 ML -] 500,000 units PO Q6H #56 cup 09/23/19 Oxycodone HCl/Acetaminophen [Percocet 5-325 mg Tablet] 1 tab PO Q6H PRN #14 tablet MDD 4 10/21/19 Oxycodone HCl/Acetaminophen [Percocet 10-325 mg Tablet] 1 each PO Q8H PRN #15 tablet MDD 3 10/26/19 Review of Systems - Review of Systems Constitutional: reports: Loss of Appetite Eyes: reports: No Symptoms HENT: reports: No Symptoms Neck: reports: No Symptoms Cardiovascular: reports: No Symptoms Respiratory: reports: No Symptoms Gastrointestinal: reports: Abdominal Pain, Constipation Genitourinary: reports: No Symptoms Breasts: reports: No Symptoms Reported Musculoskeletal: reports: No Symptoms Integumentary: reports: No Symptoms Neurological: reports: No Symptoms Endocrine: reports: No Symptoms Hematology/Lymphatic: reports: No Symptoms Psychiatric: reports: No Symptoms Physical Examination Vital Signs: Vital Signs Temperature 99.2 F 10/31/19 14:10 Pulse Rate 63 10/31/19 14:10 Respiratory Rate 18 10/31/19 14:10 Blood Pressure 132/79 10/31/19 14:10 O2 Sat by Pulse Oximetry (%) 100 10/31/19 08:21 Constitutional: Yes: No Distress, Calm Eyes: Yes: Conjunctiva Clear HENT: Yes: Atraumatic Cardiovascular: Yes: Regular Rate and Rhythm Respiratory: Yes: Regular, CTA Bilaterally Gastrointestinal: Yes: Normal Bowel Sounds, Soft, Tenderness (lower abdomen, L>R ) Musculoskeletal: Yes: WNL Extremities: Yes: WNL Edema: No Neurological: Yes: Alert, Oriented Psychiatric: Yes: Alert, Oriented Labs: CBC, BMP 10/31/19 07:00 10/31/19 07:00 Imaging - Results X-ray: Report Reviewed Cat Scan: Report Reviewed Problem List - Problems (1) Abdominal pain Assessment/Plan: -CTAP shows s/p gastric bypass surgery with thickening of the efferent loop, no evidence of bowel obstruction, pedunculated fibroid 3.4cm -Abdominal Xray shows no free air, distended small bowel loops LUQ -pain control -soft diet -Dr Peterson following patient Code(s): R10.9 - UNSPECIFIED ABDOMINAL PAIN (2) Asthma Assessment/Plan: -Bronchodilator -Symbicort -O2 via NC prn for SOB -keep SpO2 >90% Code(s): J45.909 - UNSPECIFIED ASTHMA, UNCOMPLICATED (3) Depression Assessment/Plan: -Zoloft Code(s): F32.9 - MAJOR DEPRESSIVE DISORDER, SINGLE EPISODE, UNSPECIFIED Qualifiers: Depression Type: unspecified Qualified Code(s): F32.9 - Major depressive disorder, single episode, unspecified (4) GERD (gastroesophageal reflux disease) Assessment/Plan: -Pantoprazole, Mylanta Code(s): K21.9 - GASTRO-ESOPHAGEAL REFLUX DISEASE WITHOUT ESOPHAGITIS Qualifiers: Esophagitis presence: esophagitis presence not specified Qualified Code(s) : K21.9 - Gastro-esophageal reflux disease without esophagitis (5) HTN (hypertension) Assessment/Plan: -Amldoipine, Clonidone -low Na diet Code(s): I10 - ESSENTIAL (PRIMARY) HYPERTENSION (6) Internal hernia Assessment/Plan: -Dr Peterson following patient Code(s): K45.8 - OTH ABDOMINAL HERNIA WITHOUT OBSTRUCTION OR GANGRENE (7) Rheumatoid arthritis Assessment/Plan: -Enbrel Code(s): M06.9 - RHEUMATOID ARTHRITIS, UNSPECIFIED Qualifiers: Rheumatoid arthritis location: hand Rheumatoid factor presence: unspecified presence Laterality: bilateral Qualified Code(s): M06.9 - Rheumatoid arthritis, unspecified (8) Constipation Assessment/Plan: -Miralax stat, then daily -Abdominal Xray to r/o impaction Code(s): K59.00 - CONSTIPATION, UNSPECIFIED Assessment/Plan see problem list discharge home in AM if tolerating PO diet
--- NOTE | 2019-10-31 16:30 | PN ---
Progress Note (short form) - Note Progress Note: Bariatric Surgery 44 y. o. woman 10 days S/P Laparoscopy plus repair of internal hernia. Pt states pain began yesterday and steadily worsened. No nausea/vomiting recorded. Pt states no BM for 2+ Days, takes Mag citrate frequently. Pt had 1 loose BM today PMH- GERD, sleep apnea, fibromyalgia, anxiety PSHx- Gastric sleeve, gastric bypass, abdominoplasty P/E- Gen awake, alert, NAD at present, ambulating Abd- non-distended, soft, tender on palpation to left of umbilicus no rebound WBC-6.0 H/H-12.3/38.4 CT scan of abdomen- no obstruction, no collection or leak I- Abdominal pain of unknown etiology (resolving) P- Po soft diet as tolerated Ambulate D/C home possible if pt tolerates PO diet
[2019-10-31] MEDS ORDERED: POLYETHYLENE GLYCOL 3350 119 GM BTL PO ONE (17:12)
[2019-10-31] MEDS ORDERED: NYSTATIN 500,000 UNITS/5 ML SUSPENSION PO SCH (18:00)
--- NOTE | 2019-10-31 20:38 | PN ---
Progress Note (short form) - Note Progress Note: Pt feels well No N/V Much less abdominal pain Wants to be discharged home Tolerating soft diet Patient instructed to advance to regular diet slowly as tolerated Abdominal x-ray this afternoon shows no obstruction P- D/C pt home F/U with PMD in 1 week f/U with Bariatrics in 2 days
[2019-10-31] MEDS ORDERED: BUDESONIDE/FORMETEROL FUMARATE 160/4.5 mcg INHALER IH SCH (22:00)
[2019-10-31] MEDS ORDERED: SERTRALINE HCL 50 MG TABLET (FP) PO SCH (22:00)
[2019-10-31] MEDS ORDERED: cloNIDine HCL 0.1 MG TABLET PO SCH (22:00)
[2019-10-31] MEDS ORDERED: ZOLPIDEM TARTRATE 5 MG TABLET PO SCH (22:00)
[2019-10-31] MEDS ORDERED: clonazePAM 2 MG TABLET PO SCH (22:00)
[2019-11-01] MEDS ORDERED: amLODIPine BESYLATE 10 MG TABLET (FP) PO SCH (10:00)
[2019-11-01] MEDS ORDERED: POLYETHYLENE GLYCOL 3350 119 GM BTL PO SCH (10:00)
[2019-11-01] MEDS ORDERED: PANTOPRAZOLE 40 MG TABLET PO SCH (10:00)
== END 2019-10-31 21:15 | disposition home or self-care (01) | DRG 395 ==
LOC: FER 21:05 → FM/S 10-31 01:36 → UNDOADMIN 10-31 02:14 → FM/S 10-31 02:14
PROVIDERS: ADMIT Internal Medicine; ATTEND Family Medicine
DX: K91.89 Other postprocedural complications and disorders of digestive system (principal); I10 Essential (primary) hypertension; K21.9 Gastro-esophageal reflux disease without esophagitis; K59.00 Constipation, unspecified; R10.32 Left lower quadrant pain
CPT/HCPCS: 36415; 74019-TC-FY; 74177-TC; 80048; 80053; 82150; 83690; 85025; 99282-25; Q9967

== ENCOUNTER 2019-11-05 23:32 | Emergency (ER) | payer BC ==
[2019-11-05 23:46] VITALS: BP 140/96; PULSE 60; TEMP 98; BMI 22.7
--- NOTE | 2019-11-05 23:52 | PDOC ---
History of Present Illness - General Chief Complaint: Pain, Acute Stated Complaint: CYST ON UPPER BACK Time Seen by Provider: 11/05/19 23:40 History Source: Patient Exam Limitations: No Limitations - History of Present Illness Initial Comments: 11/06/19 00:06 This is a 44-year-old female who comes in complaining of a cyst on her back that she has had times a number of years. Patient said over the last several months it is started growing and she is concerned so came in for evaluation. Patient denies any other complaints. Patient does not have it looked at by anybody else. Allergies: as per nursing notes Past Medical History: none Social history: Lives with family. No smoking. No alcohol. No illicit drugs. Surgical history: None General: No fevers or chills, no weakness, no weight loss HEENT: No change in vision. No sore throat,. No ear pain CardioVascular: no chest discomfort. No shortness of breath Respiratory:No cough, or wheezing. Gastrointestinal: no nausea, vomiting, diarrhea or constipation, No rectal bleeding Genitourinary: No dysuria, hematuria, or frequency Musculoskeletal: No joint or muscle pain or swelling Neurologic: No headache, vertigo, dizziness or loss of consciousness Psychiatric: nor depression Skin: No rashes or easy bruising Endocrine: no increased thirst or abnormal weight change Allergic: no skin or latex allergy All other systems reviewed and normal GENERAL: The patient is awake, alert, and fully oriented, in no acute distress. HEAD: Normal with no signs of trauma. EYES: Pupils equal, round and reactive to light, extraocular movements intact, sclera anicteric, conjunctiva clear. BACK there is a solid well-defined mass consistent with a lipoma approximately 3 x 3 cm on the: Left upper back area. There is no fluctuance there is no erythema there is no palpable collection. EXTREMITIES:atraumatic, Normal range of motion, no edema. NEUROLOGICAL: Normal speech, normal gait. PSYCH: Normal mood, normal affect. SKIN: Warm, Dry, normal turgor, no rashes or lesions noted. Patient was reassured that this does not need to be resolved tonight that she should follow-up with his surgeon and schedule removal of the lipoma as it has started to grow. Past History - Past Medical History Allergies/Adverse Reactions: Allergies Allergy/AdvReac Type Severity Reaction Status Date / Time shellfish derived Allergy Intermediate Hives Verified 11/05/19 23:38 bupropion HCl Allergy Rash Verified 11/05/19 23:38 [From Wellbutrin] Home Medications: Ambulatory Orders Albuterol Sulfate [Proair Respiclick] 90 mcg IH PRN PRN 05/10/17 Zolpidem Tartrate [Ambien] 10 mg PO HS 06/04/17 cloNIDine HCL [Catapres -] 0.1 mg PO BID 06/11/17 Clonazepam [Klonopin] 2 mg PO BID 07/20/17 Amlodipine Besylate [Norvasc -] 10 mg PO DAILY 09/23/18 Etanercept [Enbrel] 50 mg SQ WEEKLY 10/28/18 Esomeprazole Magnesium [Nexium 24Hr] 40 mg PO DAILY 03/09/19 Mag Hydrox/Al Hydrox/Simeth [Mylanta Oral Suspension -] 30 ml PO Q6H PRN #28 cup 03/09/19 Polyethylene Glycol 3350 [Miralax 119 gm Btl -] 17 gm PO DAILY #1 bottle Sertraline HCl 100 mg PO HS 07/22/19 Nystatin/Dpha/Lido/Sucrafate [Nystatin Mouth Rinse *Df Formula*] 5 ml MM Q6HPO # 120 bottle 09/20/19 Nystatin Oral Suspension - [Nystatin Oral Susp 642575 Units/5 ML -] 500,000 units PO Q6H #56 cup 09/23/19 Oxycodone HCl/Acetaminophen [Percocet 5-325 mg Tablet] 1 tab PO Q6H PRN #14 tablet MDD 4 10/21/19 Budesonide/Formeterol Fumarate [SYMBICORT 160/4.5mcg -] 1 puff IH BID inhaler 10/31/19 Anemia: Yes Asthma: Yes (USES INHALER,PROAIR, was unable to refill inhaler) Cancer: No Cardiac Disorders: No CVA: No COPD: No CHF: No Dementia: No Diabetes: No GI Disorders: Yes (GERD) Disorders: No HTN: Yes Hypercholesterolemia: No Liver Disease: No Psychiatric Problems: Yes (DEPRESSION, anxiety) Seizures: No Thyroid Disease: No - Surgical History Abdominal Surgery: Yes (VERTICAL SLEEVE GASTRECTOMY 2012, ABDOMINOPLASTY/AND REVISION, LIPO X2,) Appendectomy: No Cardiac Surgery: No Cholecystectomy: No GI Surgery: Yes (GASTRIC BYPASS and gastric sleeve) Lung Surgery: No Neurologic Surgery: No Orthopedic Surgery: Yes (RIGHT KNEE, SHOULDER SX, WRIST SX) - Immunization History Td Vaccination: Yes TDAP Vaccination: Yes Immunization Up to Date: Yes - Psycho Social/Smoking Cessation Hx Smoking Status: No Smoking History: Current every day smoker Years of Tobacco Use: 24 Have you smoked in the past 12 months: Yes Number of Cigarettes Smoked Daily: 10 If you are a former smoker, when did you quit?: 10/14/18 Information on smoking cessation initiated: Yes 'Breaking Loose' booklet given: 10/21/19 Hx Alcohol Use: No Drug/Substance Use Hx: No Substance Use Type: None Hx Substance Use Treatment: No *Physical Exam - Vital Signs Last Vital Signs Temp Pulse Resp BP Pulse Ox 98 F 60 16 140/96 100 11/05/19 23:39 11/05/19 23:39 11/05/19 23:39 11/05/19 23:39 11/05/19 23:39 Discharge - Discharge Information Problems reviewed: Yes Clinical Impression/Diagnosis: Lipoma of back Condition: Stable Disposition: HOME - Admission No - Follow up/Referral Referrals: Zane Mckoy MD [Primary Care Provider] - Luis Kaplan MD [Staff Physician] - - Patient Discharge Instructions Additional Instructions: Call Dr. Kaplan and make an appointment to follow-up in the morning. Return to the emergency department immediately with ANY new, persistent or worsening symptoms. Continue any medications as previously prescribed by your physician. You should follow up with your primary doctor as soon as possible regarding today's emergency department visit. . Please make sure your doctor reviews the results of your emergency evaluation. Thank you for coming to the Emergency Department today for your care. It was a pleasure to see you today. Please note that your evaluation is INCOMPLETE until you follow-up with your doctor. - Post Discharge Activity
== END 2019-11-06 00:13 | disposition home or self-care (01) ==
LOC: FER 23:32
DX: D17.9 Benign lipomatous neoplasm, unspecified (principal); Z91.013 Allergy to seafood; Z88.8 Allergy status to other drugs, medicaments and biological substances; F17.210 Nicotine dependence, cigarettes, uncomplicated; K21.9 Gastro-esophageal reflux disease without esophagitis; I10 Essential (primary) hypertension; F41.8 Other specified anxiety disorders; J45.909 Unspecified asthma, uncomplicated
CPT/HCPCS: 99284-25

== ENCOUNTER 2019-11-17 07:59 | Emergency (ER) | payer BC ==
--- NOTE | 2019-11-17 08:22 | PDOC ---
History of Present Illness - General Chief Complaint: Sore Throat Stated Complaint: sore throat Time Seen by Provider: 11/17/19 08:01 History Source: Patient Exam Limitations: No Limitations - History of Present Illness Initial Comments: 44 yo F history asthma, GERD, HTN, depression/anxiety, vertical sleeve gastrectomy presents with painful lesion to her back, as well as sore throat. She states she has had painful swallowing since last night. Has been drinking tea to soothe her throat, but has not had relief. Denies any cough, congestion, ear pain. Her back lesion has been draining when she squeezes it, but she noticed that there are additional areas of pain and swelling now. Past History - Past Medical History Allergies/Adverse Reactions: Allergies Allergy/AdvReac Type Severity Reaction Status Date / Time shellfish derived Allergy Intermediate Hives Verified 11/05/19 23:38 bupropion HCl Allergy Rash Verified 11/05/19 23:38 [From Wellbutrin] Home Medications: Ambulatory Orders Albuterol Sulfate [Proair Respiclick] 90 mcg IH PRN PRN 05/10/17 Zolpidem Tartrate [Ambien] 10 mg PO HS 06/04/17 cloNIDine HCL [Catapres -] 0.1 mg PO BID 06/11/17 Clonazepam [Klonopin] 2 mg PO BID 07/20/17 Amlodipine Besylate [Norvasc -] 10 mg PO DAILY 09/23/18 Etanercept [Enbrel] 50 mg SQ WEEKLY 10/28/18 Esomeprazole Magnesium [Nexium 24Hr] 40 mg PO DAILY 03/09/19 Mag Hydrox/Al Hydrox/Simeth [Mylanta Oral Suspension -] 30 ml PO Q6H PRN #28 cup 03/09/19 Polyethylene Glycol 3350 [Miralax 119 gm Btl -] 17 gm PO DAILY #1 bottle Sertraline HCl 100 mg PO HS 07/22/19 Nystatin/Dpha/Lido/Sucrafate [Nystatin Mouth Rinse *Df Formula*] 5 ml MM Q6HPO # 120 bottle 09/20/19 Nystatin Oral Suspension - [Nystatin Oral Susp 233636 Units/5 ML -] 500,000 units PO Q6H #56 cup 09/23/19 Oxycodone HCl/Acetaminophen [Percocet 5-325 mg Tablet] 1 tab PO Q6H PRN #14 tablet MDD 4 10/21/19 Budesonide/Formeterol Fumarate [SYMBICORT 160/4.5mcg -] 1 puff IH BID inhaler 10/31/19 Anemia: Yes Asthma: Yes (USES INHALER,PROAIR, was unable to refill inhaler) Cancer: No Cardiac Disorders: No CVA: No COPD: No CHF: No Dementia: No Diabetes: No GI Disorders: Yes (GERD) Disorders: No HTN: Yes Hypercholesterolemia: No Liver Disease: No Psychiatric Problems: Yes (DEPRESSION, anxiety) Seizures: No Thyroid Disease: No - Surgical History Abdominal Surgery: Yes (VERTICAL SLEEVE GASTRECTOMY 2012, ABDOMINOPLASTY/AND REVISION, LIPO X2,) Appendectomy: No Cardiac Surgery: No Cholecystectomy: No GI Surgery: Yes (GASTRIC BYPASS and gastric sleeve) Lung Surgery: No Neurologic Surgery: No Orthopedic Surgery: Yes (RIGHT KNEE, SHOULDER SX, WRIST SX) - Immunization History Td Vaccination: Yes TDAP Vaccination: Yes Immunization Up to Date: Yes - Psycho Social/Smoking Cessation Hx Smoking Status: No Smoking History: Current every day smoker Years of Tobacco Use: 24 Have you smoked in the past 12 months: Yes Number of Cigarettes Smoked Daily: 10 If you are a former smoker, when did you quit?: 10/14/18 'Breaking Loose' booklet given: 11/06/19 Hx Alcohol Use: No Drug/Substance Use Hx: No Substance Use Type: None Hx Substance Use Treatment: No Review of Systems - Review of Systems Able to Perform ROS?: Yes Comments:: GENERAL/CONSTITUTIONAL: No fever or chills. No weakness. HEAD, EYES, EARS, NOSE AND THROAT: No change in vision. No ear pain or discharge. +Sore throat. CARDIOVASCULAR: No chest pain or shortness of breath. RESPIRATORY: No cough, wheezing, or hemoptysis. GASTROINTESTINAL: No nausea, vomiting, diarrhea or constipation. GENITOURINARY: No dysuria, frequency, or change in urination. MUSCULOSKELETAL: No joint or muscle swelling or pain. No neck pain. No back pain. SKIN: +Painful lesion to back NEUROLOGIC: No headache, vertigo, loss of consciousness, or change in strength/ sensation. ENDOCRINE: No increased thirst. No abnormal weight change. HEMATOLOGIC/LYMPHATIC: No anemia, easy bleeding, or history of blood clots. ALLERGIC/IMMUNOLOGIC: No hives or skin allergy. *Physical Exam - Physical Exam GENERAL: Awake, alert, and fully oriented, in no acute distress HEAD: No signs of trauma EYES: PERRLA, EOMI, sclera anicteric, conjunctiva clear ENT: Auricles normal inspection, hearing grossly normal, nares patent, oropharynx erythematous without exudates. Moist mucosa NECK: Normal ROM, supple. No JVD or masses. +Anterior cervical lymphadenopathy LUNGS: Breath sounds equal, clear to auscultation bilaterally. No wheezes, and no crackles HEART: Regular rate and rhythm, normal S1 and S2, no murmurs, rubs or gallops ABDOMEN: Soft, nontender, normoactive bowel sounds. No guarding, no rebound. No masses EXTREMITIES: Normal range of motion, no edema. No clubbing or cyanosis. No cords, erythema, or tenderness NEUROLOGICAL: Cranial nerves II through XII grossly intact. Normal speech, normal gait. Motor and sensation intact SKIN: Warm, dry, normal turgor, no rashes. +3 small tender indurated lesions to the L upper back, just lateral to the scapula. Middle lesion is draining scant purulent material. No surrounding erythema. No fluctuance. Medical Decision Making - Medical Decision Making 11/17/19 08:32 Pt given decadron for throat discomfort. Throat swab pending. Unable to drain the lesions to her back, as they are deep and not at a head. No cellulitis, no indication for abx at present. Discharge - Discharge Information Problems reviewed: Yes Clinical Impression/Diagnosis: Pharyngitis Qualifiers: Pharyngitis/tonsillitis etiology: unspecified etiology Qualified Code(s): J02.9 - Acute pharyngitis, unspecified Condition: Stable Disposition: HOME - Admission No - Follow up/Referral - Patient Discharge Instructions Patient Printed Discharge Instructions: DI for Pharyngitis/Tonsillopharyngitis -- Adult - Post Discharge Activity
[2019-11-17] MEDS ORDERED: DEXAMETHASONE SOD PHOSPHATE 10 MG/1 ML VIAL IVPUSH ONE (08:23)
[2019-11-17 08:29] VITALS: BP 100/60; PULSE 94; TEMP 98.2; BMI 22.8
[2019-11-17] MEDS ORDERED: DEXAMETHASONE SOD PHOSPHATE 10 MG/1 ML VIAL ONE (08:43)
== END 2019-11-17 10:25 | disposition home or self-care (01) ==
LOC: FER 07:59
PROC: 3E033GC Introduction of Other Therapeutic Substance into Peripheral Vein, Percutaneous Approach (ICD-10-PCS; principal; 2019-11-17)
DX: J02.9 Acute pharyngitis, unspecified (principal); I10 Essential (primary) hypertension; K21.9 Gastro-esophageal reflux disease without esophagitis; J45.909 Unspecified asthma, uncomplicated; F41.9 Anxiety disorder, unspecified; F32.9 Major depressive disorder, single episode, unspecified; Z98.84 Bariatric surgery status; Z88.8 Allergy status to other drugs, medicaments and biological substances; Z91.013 Allergy to seafood
CPT/HCPCS: 87070; 87880; 99284-25; J1100

== ENCOUNTER 2019-11-20 03:57 | Emergency (ER) | payer BC ==
--- NOTE | 2019-11-20 04:27 | PDOC ---
Attending Attestation - Resident Resident Name: Rudy Cancino - ED Attending Attestation I have performed the following: I have examined & evaluated the patient, The case was reviewed & discussed with the resident, I agree w/resident's findings & plan - HPI HPI: 11/20/19 06:46 Pt comes with inability to move bowels. Pt has hx of SBO, requireing surgical repair. She has a hx of gastric bypass. States that she ate clam chowder and grilled cheese yesterday. Pt is concerned because she feels bloated and she states that she gained 7 lbs in the last 4 days, despite not eating much. - Physicial Exam PE: 11/20/19 06:48 Afebrile VSS HEENT normal. Pt smells of cigarettes. Coarse BS on lung on the right side No flank pain heart RRR neuro intact ab minimally tender. - Medical Decision Making 11/24/19 22:54 Pt just walked in and her labs are in progress and she will be signed out to the day ER team, who will follow her lans and imaging as needed.
[2019-11-20 04:32] VITALS: BMI 29.0
[2019-11-20] MEDS ORDERED: ACETAMINOPHEN 1000 MG/100 ML VIAL (NON FORMULARY) IVPB ONE (04:32)
--- NOTE | 2019-11-20 04:42 | PDOC ---
History of Present Illness - General Chief Complaint: Pain, Acute Stated Complaint: ABD PAIN Time Seen by Provider: 11/20/19 04:24 History Source: Patient Exam Limitations: No Limitations - History of Present Illness Initial Comments: 11/20/19 04:36 44F with a PMH of asthma, GERD, HTN, depression/anxiety, vertical sleeve gastrectomy who presents to the ER with complains of abdominal pain. The patient states that she's been "backed up" for 1 week. She states that she had "intestinal complications" from her gastrectomy 1 year ago. She has been passing gas and has had "small" bowel movements but states that she feels backed up. She states that she is nauseous but denies CP, SOB, vomiting, dysuria , hematuria, flank pain. Past History - Past Medical History Allergies/Adverse Reactions: Allergies Allergy/AdvReac Type Severity Reaction Status Date / Time shellfish derived Allergy Intermediate Hives Verified 11/20/19 14:07 bupropion HCl Allergy Rash Verified 11/20/19 14:07 [From Wellbutrin] Home Medications: Ambulatory Orders Albuterol Sulfate [Proair Respiclick] 90 mcg IH PRN PRN 05/10/17 Zolpidem Tartrate [Ambien] 10 mg PO HS 06/04/17 cloNIDine HCL [Catapres -] 0.1 mg PO BID 06/11/17 Clonazepam [Klonopin] 2 mg PO BID 07/20/17 Amlodipine Besylate [Norvasc -] 10 mg PO DAILY 09/23/18 Etanercept [Enbrel] 50 mg SQ WEEKLY 10/28/18 Esomeprazole Magnesium [Nexium 24Hr] 40 mg PO DAILY 03/09/19 Polyethylene Glycol 3350 [Miralax 119 gm Btl -] 17 gm PO DAILY #1 bottle Sertraline HCl 100 mg PO HS 07/22/19 Budesonide/Formeterol Fumarate [SYMBICORT 160/4.5mcg -] 1 puff IH BID inhaler 10/31/19 Ciprofloxacin [Cipro (Restricted To Id)] 500 mg PO Q12H #20 tablet 11/20/19 metroNIDAZOLE [Flagyl -] 500 mg PO TID #30 tablet 11/20/19 Anemia: Yes Asthma: Yes (USES INHALER,PROAIR, was unable to refill inhaler) Cancer: No Cardiac Disorders: No CVA: No COPD: No CHF: No Dementia: No Diabetes: No GI Disorders: Yes (GERD) Disorders: No HTN: Yes Hypercholesterolemia: No Liver Disease: No Psychiatric Problems: Yes (DEPRESSION, anxiety) Seizures: No Thyroid Disease: No - Surgical History Abdominal Surgery: Yes (VERTICAL SLEEVE GASTRECTOMY 2011, ABDOMINOPLASTY/AND REVISION, LIPO X2,) Appendectomy: No Cardiac Surgery: No Cholecystectomy: No GI Surgery: Yes (GASTRIC BYPASS and gastric sleeve) Lung Surgery: No Neurologic Surgery: No Orthopedic Surgery: Yes (RIGHT KNEE, SHOULDER SX, WRIST SX) - Immunization History Td Vaccination: Yes TDAP Vaccination: Yes Immunization Up to Date: Yes - Psycho Social/Smoking Cessation Hx Smoking Status: No Smoking History: Current every day smoker Years of Tobacco Use: 24 Have you smoked in the past 12 months: Yes Number of Cigarettes Smoked Daily: 15 If you are a former smoker, when did you quit?: 10/14/18 Information on smoking cessation initiated: No 'Breaking Loose' booklet given: 11/17/19 Hx Alcohol Use: No Drug/Substance Use Hx: No Substance Use Type: None Hx Substance Use Treatment: No Review of Systems - Review of Systems Able to Perform ROS?: Yes Comments:: 11/20/19 04:45 GENERAL/CONSTITUTIONAL: No fever or chills. No weakness. HEAD, EYES, EARS, NOSE AND THROAT: No change in vision. No ear pain or discharge. No sore throat. CARDIOVASCULAR: No chest pain, palpitations, or lightheadedness. RESPIRATORY: No cough, wheezing, shortness of breath, or hemoptysis. GASTROINTESTINAL: + for abd pain, constipation, and nausea. No vomiting or diarrhea. GENITOURINARY: No dysuria, frequency, hematuria, or change in urination. MUSCULOSKELETAL: No joint or muscle swelling or pain. No neck or back pain. SKIN: No rash or lesions. NEUROLOGIC: No headache, numbness, tingling, focal weakness, loss of consciousness, or change in strength/sensation. Is the patient limited Cymro proficient: No *Physical Exam - Vital Signs Last Vital Signs Temp Pulse Resp BP Pulse Ox 98.0 F 91 H 18 132/092 100 11/20/19 04:30 11/20/19 04:30 11/20/19 04:30 11/20/19 04:30 11/20/19 04:30 - Physical Exam 11/20/19 04:46 GENERAL: Well developed, well nourished. Awake and alert. No acute distress. HEENT: Normocephalic, atraumatic. Hearing grossly normal. Moist mucous membranes. PERRLA, EOMI. No conjunctival pallor. Sclera are non-icteric. NECK: Supple. Full ROM. No JVD. CARDIOVASCULAR: Regular rate and rhythm. No murmurs, rubs, or gallops. PULMONARY: No evidence of respiratory distress. Lungs clear to auscultation bilaterally. No wheezing, rales, or rhonchi. ABDOMINAL: Soft. TTP diffusely. Surgical scars noted. Non-distended. No rebound or guarding. GENITOURINARY: No CVA tenderness bilaterally. MUSCULOSKELETAL: Normal range of motion at all joints. No bony deformities or tenderness. EXTREMITIES: No cyanosis. No clubbing. No edema. No calf tenderness or swelling. SKIN: Warm and dry. Normal capillary refill. No rashes. No jaundice. NEUROLOGICAL: Alert, awake, appropriate. Cranial nerves 2-12 intact. Normal speech. Gait is normal without ataxia. PSYCHIATRIC: Cooperative. Good eye contact. Appropriate mood and affect. ED Treatment Course - LABORATORY CBC & Chemistry Diagram: 11/20/19 05:10 11/20/19 05:10 - RADIOLOGY Radiology Studies Ordered: Category Date Time Status ABDOMEN & PELVIS CT WITH CONTR [CT] Stat CT Scan 11/20/19 04:31 Ordered Medical Decision Making - Medical Decision Making 11/20/19 04:47 44F with a PMH of gastrectomy who presents to the ER with complaints of diffuse abdominal pain, nausea, and constipation. Concern for partial SBO. Will obtain labs and CTAP. Pt comfortable appearing otherwise. Giving symptomatic treatment and reassessing after CTAP. 11/20/19 07:10 CBC, CMP WNL. Pt signed out to Dr. Maldonado for further evaluation. Pending CTAP. Discharge - Discharge Information Problems reviewed: Yes Clinical Impression/Diagnosis: Colitis, History of Alisson-en-Y gastric bypass Vomiting Qualifiers: Vomiting type: unspecified Vomiting Intractability: non-intractable Nausea presence: with nausea Qualified Code(s): R11.2 - Nausea with vomiting, unspecified Condition: Guarded Disposition: AGAINST MEDICAL ADVICE - Additional Discharge Information Prescriptions: Ciprofloxacin [Cipro (Restricted To Id)] 500 mg PO Q12H #20 tablet metroNIDAZOLE [Flagyl -] 500 mg PO TID #30 tablet - Follow up/Referral Referrals: Zane Mckoy MD [Primary Care Provider] - - Patient Discharge Instructions Additional Instructions: You were seen in the ER for abdominal pain and nausea/vomiting. We did labs which were essentially normal, an EKG which showed no new changes, and a CT which did show some concerning findings. We believe you have colitis ( inflammation/infection of the intestines). You may also have inflammation near your staple/sutures. We discussed that you are leaving against medical advice, and you understood the risks which include staple line opening, other serious complications like sepsis from the infection, and . Please come back to the ER immediately if you change your mind. Follow up with Dr. Peterson and your PCP tomorrow. 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 Finish the antibiotic courses whether or not your symptoms resolve. Stay on a clear-liquid diet, drinking plenty of fluids. - Post Discharge Activity
[2019-11-20] MEDS ORDERED: ACETAMINOPHEN INJECTION 100 ML IVPB ONE (04:49)
[2019-11-20 06:12] LABS: BASO % 0.9 % (0-2.0); EOS % 2.4 % (0-4.5); HEMATOCRIT 35.2 % (32.4-45.2); HEMOGLOBIN 11.6 GM/dL (10.7-15.3); LYMPH % 29.4 % (8-40); MCH 30.8 pg (25.7-33.7); MEAN CELL VOLUME 93.4 fl (80-96); MEAN PLT VOLUME 8.7 fl (7.5-11.1); MONO % 9.2 % (3.8-10.2); NEUT % 58.1 % (42.8-82.8); PLATELET COUNT 293 K/MM3 (134-434); RBC 3.77 M/mm3 (3.60-5.2); RDW 15.2 % (11.6-15.6); WHITE BLOOD COUNT 4.7 K/mm3 (4.0-10.0)
[2019-11-20 06:27] LABS: INR 1.02 (0.83-1.09)
[2019-11-20 06:49] LABS: ALBUMIN 3.1 g/dl (3.4-5.0); ALK PHOS 125 U/L (45-117); ANION GAP 5 MMOL/L (8-16); BILIRUBIN,TOTAL 0.5 mg/dL (0.2-1); BLOOD UREA NITROGEN 11.4 mg/dL (7-18); CALCIUM 8.3 mg/dL (8.5-10.1); CHLORIDE 107 mmol/L (98-107); CO2 28 mmol/L (21-32); CREATININE 0.7 mg/dL (0.55-1.3); GLUCOSE,RANDOM 81 mg/dL (74-106); POTASSIUM 3.9 mmol/L (3.5-5.1); SGOT/AST 29 U/L (15-37); SGPT/ALT 21 U/L (13-61); SODIUM 139 mmol/L (136-145); TOT PROT 6.5 g/dl (6.4-8.2)
--- NOTE | 2019-11-20 09:29 | PDOC ---
*Physical Exam - Vital Signs Last Vital Signs Temp Pulse Resp BP Pulse Ox 98.0 F 91 H 18 132/092 100 11/20/19 04:30 11/20/19 04:30 11/20/19 04:30 11/20/19 04:30 11/20/19 04:30 - Physical Exam 11/20/19 09:20 Patient's care was endorsed to me by Dr. Cancino at the end of his shift. Patient is a 44 YOF with h/o Alisson-En-Y gastric bypass c/b internal hernia SBO requiring surgical correction in 01/2019 and second episode of internal hernia SBO again requiring surgical correction in 09/2019 (all by Dr. Peterson), also h/o multiple abdominoplasty procedures, who p/w abdominal pain and nausea which she states feels similar to her prior SBOs. Patient is pending CTAP with PO and IV contrast , started drinking PO contrast at 5:30am. ED Treatment Course - LABORATORY CBC & Chemistry Diagram: 11/20/19 05:10 11/20/19 05:10 - ADDITIONAL ORDERS Additional order review: Laboratory Results 11/20/19 11/20/19 11/20/19 05:10 05:10 05:10 PT with INR 12.00 INR 1.02 Sodium 139 Potassium 3.9 Chloride 107 Carbon Dioxide 28 Anion Gap 5 L BUN 11.4 Creatinine 0.7 Est GFR (CKD-EPI)AfAm 122.99 Est GFR (CKD-EPI)NonAf 106.12 Random Glucose 81 Calcium 8.3 L Total Bilirubin 0.5 AST 29 ALT 21 Alkaline Phosphatase 125 H Total Protein 6.5 Albumin 3.1 L Beta HCG, Quant < 1.0 Blood Type A POSITIVE Antibody Screen Negative 11/20/19 05:10 RBC 3.77 MCV 93.4 MCHC 33.0 RDW 15.2 MPV 8.7 D Neutrophils % 58.1 D Lymphocytes % 29.4 D Monocytes % 9.2 Eosinophils % 2.4 Basophils % 0.9 - Medications Given in the ED: ED Medications Discontinued Medications Generic Name Dose Route Start Last Admin Trade Name Freq PRN Reason Stop Dose Admin Acetaminophen 1,000 mg 11/20/19 04:32 11/20/19 05:20 Ofirmev Injection - IVPB 11/20/19 04:33 1,000 mg ONCE ONE Administration Medical Decision Making - Medical Decision Making 11/20/19 10:05 Awaiting radiology read of CTAP. 11/20/19 10:[address] Chen who expressed concern for multiple areas of bowel inflammation/colitis. Expressed additional concern about inflammation at her staple line from prior surgery. Dr. Peterson in surgery all day but will attempt to reach him. I spoke with Dr. Edge who admits patient to Med/Surg, requests GI consult. 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 CT/ABDOMEN PELVIS CT WITH CONTR Status post gastric bypass with diffuse abdominal pain CT scan of the abdomen and pelvis following oral and intravenous contrast. Coronal and sagittal reformatted images were obtained 98 cc of Omnipaque 350 was intravenously injected Comparison: Prior CT scan of the abdomen pelvis dated 10/30/2019 Visualized lung base appears unremarkable and the heart is within normal limits in size. Evaluation of the liver, spleen, pancreas , gallbladder, both adrenal glands and both kidneys appear unremarkable. Patient is status post the gastric bypass surgery with wall thickening seen around the sutures and proximal bowel loops. There is also mild dilatation of the distal esophagus with suggestion of wall thickening. The bowel loops are not dilated to suggest small bowel obstruction. Normal-appearing terminal ileum There is nondistention/collapse of the distal descending and sigmoid colon with suggestion of wall thickening. There is also a short segment of wall thickening in the proximal/mid transverse colon as well as interval short segment of wall thickening in the proximal ascending colon around the ileocecal valve region, rule out colitis. No free air or free fluid are identified in the abdomen was enlarged lymph nodes are identified. Normal size uterus. Prominent ovaries again noted with a partially involuted right ovarian simple cyst/follicle measuring 1.3 cm. Partially distended urinary bladder without wall thickening. Visualized osseous structures appear intact IMPRESSION: Status post gastric bypass surgery with thickening of the proximal small bowel loops as well as thickening of the bowel wall around the sutures without evidence of small bowel obstruction. Dilated distal esophagus with wall thickening. Interval short segment of wall thickening in the ascending colon around the ileocecal valve region as well as in the proximal/midportion of the transverse colon and collapsed/thickening of the distal descending and sigmoid colon. Findings are suggestive of colitis. Correlate clinically to determine further evaluation and follow-up Vital Signs Temperature 98.4 F 11/20/19 12:18 Pulse Rate 86 11/20/19 12:18 Respiratory Rate 16 11/20/19 12:18 Blood Pressure 134/84 11/20/19 12:18 O2 Sat by Pulse Oximetry (%) 98 11/20/19 12:18 11/20/19 1:00 The patient is choosing to leave AMA. I have had a long discussion with them about the risks of leaving against our strong recommendation. They understand that the risks include and serious morbidity. They are of sound mind, are able to internalize and process and repeat back the information to me. Despite our conversation and their understanding of the gravity of the situation , they choose to leave AMA. AMA paperwork is completed and signed by all required parties. E-Rx is still sent to their pharmacy for abx and she is instructed on taking them. I also give them very clear discharge instructions to come back if they change their mind. I give them instructions on how to best care for themselves at home given that they choose not to stay here. Specific return precautions are discussed and they know they can return to the ED at any time. Discharge - Discharge Information Problems reviewed: Yes Clinical Impression/Diagnosis: Colitis, History of Alisson-en-Y gastric bypass Vomiting Qualifiers: Vomiting type: unspecified Vomiting Intractability: non-intractable Nausea presence: with nausea Qualified Code(s): R11.2 - Nausea with vomiting, unspecified Condition: Guarded Disposition: AGAINST MEDICAL ADVICE - Admission Yes - Additional Discharge Information Prescriptions: metroNIDAZOLE [Flagyl -] 500 mg PO TID #30 tablet - Follow up/Referral Referrals: Zane Mckoy MD [Primary Care Provider] - - Patient Discharge Instructions Additional Instructions: You were seen in the ER for abdominal pain and nausea/vomiting. We did labs which were essentially normal, an EKG which showed no new changes, and a CT which did show some concerning findings. We believe you have colitis ( inflammation/infection of the intestines). You may also have inflammation near your staple/sutures. We discussed that you are leaving against medical advice, and you understood the risks which include staple line opening, other serious complications like sepsis from the infection, and . Please come back to the ER immediately if you change your mind. Follow up with Dr. Peterson and your PCP tomorrow. 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 Finish the antibiotic courses whether or not your symptoms resolve. Stay on a clear-liquid diet, drinking plenty of fluids. - Post Discharge Activity
[2019-11-20] MEDS ORDERED: ONDANSETRON *ODT* 4 MG TABLET SL ONE (10:07)
[2019-11-20] MEDS ORDERED: ONDANSETRON *ODT* 4 MG TABLET ONE (10:10)
--- NOTE | 2019-11-20 12:13 | PDOC ---
*Physical Exam - Vital Signs Last Vital Signs Temp Pulse Resp BP Pulse Ox 98.2 F 84 18 117/84 99 11/20/19 10:13 11/20/19 10:13 11/20/19 10:13 11/20/19 10:13 11/20/19 10:13 ED Treatment Course - LABORATORY CBC & Chemistry Diagram: 11/20/19 05:10 11/20/19 05:10 - ADDITIONAL ORDERS Additional order review: Laboratory Results 11/20/19 11/20/19 11/20/19 05:10 05:10 05:10 PT with INR 12.00 INR 1.02 Sodium 139 Potassium 3.9 Chloride 107 Carbon Dioxide 28 Anion Gap 5 L BUN 11.4 Creatinine 0.7 Est GFR (CKD-EPI)AfAm 122.99 Est GFR (CKD-EPI)NonAf 106.12 Random Glucose 81 Calcium 8.3 L Total Bilirubin 0.5 AST 29 ALT 21 Alkaline Phosphatase 125 H Total Protein 6.5 Albumin 3.1 L Beta HCG, Quant < 1.0 Blood Type A POSITIVE Antibody Screen Negative 11/20/19 05:10 RBC 3.77 MCV 93.4 MCHC 33.0 RDW 15.2 MPV 8.7 D Neutrophils % 58.1 D Lymphocytes % 29.4 D Monocytes % 9.2 Eosinophils % 2.4 Basophils % 0.9 - Medications Given in the ED: ED Medications Discontinued Medications Generic Name Dose Route Start Last Admin Trade Name Santa PRN Reason Stop Dose Admin Acetaminophen 1,000 mg 11/20/19 04:32 11/20/19 05:20 Ofirmev Injection - IVPB 11/20/19 04:33 1,000 mg ONCE ONE Administration Metronidazole 500 mg in 100 mls @ 100 mls/hr 11/20/19 10:38 11/20/19 12:02 Flagyl 500mg Premixed Ivpb - IVPB 11/20/19 11:37 Not Given ONCE ONE Levofloxacin 750 mg in 150 mls @ 100 mls/hr 11/20/19 10:38 11/20/19 12:02 Levaquin 750 Mg Premixed Ivpb - IVPB 11/20/19 12:07 Not Given ONCE ONE Protocol Ondansetron HCl 4 mg 11/20/19 10:07 11/20/19 10:11 Zofran Odt - SL 11/20/19 10:08 4 mg ONCE ONE Administration Medical Decision Making - Medical Decision Making 11/20/19 12:13 Patient requesting to sign out AGAINST MEDICAL ADVICE Case discussed with Dr. Oliveros admitting physician discussed risks and benefits of signing out AGAINST MEDICAL ADVICE with patient we will call in a prescription for antibiotics for the patient patient advised to follow-up with her surgeon this week Findings, the need for follow-up and strict return instructions discussed with patient. Discharge - Discharge Information Problems reviewed: Yes Clinical Impression/Diagnosis: Colitis, History of Alisson-en-Y gastric bypass Vomiting Qualifiers: Vomiting type: unspecified Vomiting Intractability: non-intractable Nausea presence: with nausea Qualified Code(s): R11.2 - Nausea with vomiting, unspecified Condition: Guarded Disposition: AGAINST MEDICAL ADVICE - Additional Discharge Information Prescriptions: Ciprofloxacin [Cipro (Restricted To Id)] 500 mg PO Q12H #20 tablet metroNIDAZOLE [Flagyl -] 500 mg PO TID #30 tablet - Follow up/Referral Referrals: Zane Mckoy MD [Primary Care Provider] - - Patient Discharge Instructions Additional Instructions: You were seen in the ER for abdominal pain and nausea/vomiting. We did labs which were essentially normal, an EKG which showed no new changes, and a CT which did show some concerning findings. We believe you have colitis ( inflammation/infection of the intestines). You may also have inflammation near your staple/sutures. We discussed that you are leaving against medical advice, and you understood the risks which include staple line opening, other serious complications like sepsis from the infection, and . Please come back to the ER immediately if you change your mind. Follow up with Dr. Peterson and your PCP tomorrow. 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 Finish the antibiotic courses whether or not your symptoms resolve. Stay on a clear-liquid diet, drinking plenty of fluids. - Post Discharge Activity
[2019-11-20 12:19] VITALS: BP 134/84; PULSE 86; TEMP 98.4
--- NOTE | 2019-11-28 18:14 | PDOC ---
Patient Follow-up (Call Back) - Post ED Follow - Up Condition at time of discharge: Guarded Disposition at time of original discharge: AGAINST MEDICAL ADVICE - Disposition Additional Instructions/Notes: Phone call from patient. States that she has vaginal itching and discharge which she thinks is a yeast infection. She is taking antibiotics, and commonly experiences the symptoms with antibiotic therapy. No abdominal pain, pelvic pain, vaginal bleeding. Or urinary tract symptoms. Requests refill of Diflucan. Diflucan prescribed to her pharmacy to be used as directed. To follow-up primary physician in 3 to 5 days.
== END 2019-11-20 12:19 | disposition left against medical advice (07) ==
LOC: JER 03:57
DX: K52.9 Noninfective gastroenteritis and colitis, unspecified (principal); I10 Essential (primary) hypertension; K21.9 Gastro-esophageal reflux disease without esophagitis; J45.909 Unspecified asthma, uncomplicated; F41.8 Other specified anxiety disorders; F32.9 Major depressive disorder, single episode, unspecified; Z98.84 Bariatric surgery status; Z91.013 Allergy to seafood; Z88.8 Allergy status to other drugs, medicaments and biological substances; F17.210 Nicotine dependence, cigarettes, uncomplicated; Z98.890 Other specified postprocedural states
CPT/HCPCS: 36415; 74177-TC; 80053; 84702; 85025; 85610; 86850; 86900; 86901; 99285-25; J0131; Q0162

== ENCOUNTER 2019-11-20 14:05 | Inpatient (IN) | payer BC ==
[2019-11-20] MEDS ORDERED: KETOROLAC TROMETHAMINE 15 MG/ML VIAL IVPUSH ONE (14:26)
[2019-11-20] MEDS ORDERED: SODIUM CHLORIDE 0.9% 1000 ML INFUS.BAG IV ONE (14:26)
--- NOTE | 2019-11-20 14:34 | PDOC ---
Documentation entered by Jesusita Pryor SCRIBE, acting as scribe for Alicia Crespo DO. Alicia Crespo DO: This documentation has been prepared by the Konstantin amin Nirvannie, SCRIBE, under my direction and personally reviewed by me in its entirety. I confirm that the documentation accurately reflects all work, treatment, procedures, and medical decision making performed by me. History of Present Illness - General Chief Complaint: Pain Stated Complaint: ABD PAIN Time Seen by Provider: 11/20/19 14:09 History Source: Patient Exam Limitations: No Limitations - History of Present Illness Initial Comments: 11/20/19 15:23 The patient is a 44 year old female, with a significant past medical history of asthma, GERD, HTN, depression/anxiety, asthma, RA, fibromyalgia, recent surgery to correct internal hernia (09/2019), who presents to the emergency department with one week of constipation with new onset 1 day of sharp abdominal pain. As per patient, she has been constipated for approximately thus, she took magnesium citrate (without relief) then 48 chocolate laxatives, with relief. She notes onsetting at approximately 2:30 she began to experience sharp abdominal pain with associated nausea and non-bloody emesis, prompting her arrival to [facility] ER. Patient notes to have signed out AMA after being diagnosed with colitis secondary to her surgeon currently being at [place]. Patient notes approximately a week after her surgery she took an injection of her Enbrel for RA secondary to a flare up against medical advice to refrain from injections to the abdomen. While at [facility], patient notes to have received Zofran, Ofirmev, and Pepcid. She denies recent fevers, chills, headache or dizziness. She denies recent dysuria, frequency, urgency or hematuria. She denies recent chest pain or shortness of breath. Allergies: Shellfish, bupropion Past surgical history: s/p gastric sleeve and gastric bypass, s/p hernia repair , abdominoplasty and revision, liposuction, right knee arthroscopy, shoulder arthroscopy, wrist arthroscopy Social history: Smoker. Primary Care Physician: Dr. Mckoy GI: Dr. Valdes Paragliding Instructor: Dr. Hendrix Past History - Past Medical History Allergies/Adverse Reactions: Allergies Allergy/AdvReac Type Severity Reaction Status Date / Time shellfish derived Allergy Intermediate Hives Verified 11/20/19 14:07 bupropion HCl Allergy Rash Verified 11/20/19 14:07 [From Wellbutrin] Home Medications: Ambulatory Orders Albuterol Sulfate [Proair Respiclick] 90 mcg IH PRN PRN 05/10/17 Zolpidem Tartrate [Ambien] 10 mg PO HS 06/04/17 cloNIDine HCL [Catapres -] 0.1 mg PO BID 06/11/17 Clonazepam [Klonopin] 2 mg PO BID 07/20/17 Amlodipine Besylate [Norvasc -] 10 mg PO DAILY 09/23/18 Etanercept [Enbrel] 50 mg SQ WEEKLY 10/28/18 Esomeprazole Magnesium [Nexium 24Hr] 40 mg PO DAILY 03/09/19 Polyethylene Glycol 3350 [Miralax 119 gm Btl -] 17 gm PO DAILY #1 bottle Sertraline HCl 100 mg PO HS 07/22/19 Budesonide/Formeterol Fumarate [SYMBICORT 160/4.5mcg -] 1 puff IH BID inhaler 10/31/19 Ciprofloxacin [Cipro (Restricted To Id)] 500 mg PO Q12H #20 tablet 11/20/19 metroNIDAZOLE [Flagyl -] 500 mg PO TID #30 tablet 11/20/19 Anemia: Yes Asthma: Yes (USES INHALER,PROAIR, was unable to refill inhaler) Cancer: No Cardiac Disorders: No CVA: No COPD: No CHF: No Dementia: No Diabetes: No GI Disorders: Yes (GERD) Disorders: No HTN: Yes Hypercholesterolemia: No Liver Disease: No Psychiatric Problems: Yes (DEPRESSION, anxiety) Seizures: No Thyroid Disease: No - Surgical History Abdominal Surgery: Yes (VERTICAL SLEEVE GASTRECTOMY 2012, ABDOMINOPLASTY/AND REVISION, LIPO X2,) Appendectomy: No Cardiac Surgery: No Cholecystectomy: No GI Surgery: Yes (GASTRIC BYPASS and gastric sleeve) Lung Surgery: No Neurologic Surgery: No Orthopedic Surgery: Yes (RIGHT KNEE, SHOULDER SX, WRIST SX) - Immunization History Td Vaccination: Yes TDAP Vaccination: Yes Immunization Up to Date: Yes - Psycho Social/Smoking Cessation Hx Smoking Status: No Smoking History: Current every day smoker Years of Tobacco Use: 24 Have you smoked in the past 12 months: Yes Number of Cigarettes Smoked Daily: 15 If you are a former smoker, when did you quit?: 10/14/18 Information on smoking cessation initiated: Yes 'Breaking Loose' booklet given: 11/17/19 Hx Alcohol Use: No Drug/Substance Use Hx: No Substance Use Type: None Hx Substance Use Treatment: No Review of Systems - Review of Systems Able to Perform ROS?: Yes Comments:: 11/20/19 15:23 GENERAL/CONSTITUTIONAL: No fever or chills. No weakness. HEAD, EYES, EARS, NOSE AND THROAT: No change in vision. No ear pain or discharge. No sore throat. GASTROINTESTINAL: +Nausea. Vomiting. Abdominal pain. Constipation. GENITOURINARY: No dysuria, frequency, or change in urination. CARDIOVASCULAR: No chest pain or shortness of breath. RESPIRATORY: No cough, wheezing, or hemoptysis. MUSCULOSKELETAL: No joint or muscle swelling or pain. No neck or back pain. SKIN: No rash NEUROLOGIC: No headache, vertigo, loss of consciousness, or change in strength/ sensation. ENDOCRINE: No increased thirst. No abnormal weight change. HEMATOLOGIC/LYMPHATIC: No anemia, easy bleeding, or history of blood clots. ALLERGIC/IMMUNOLOGIC: No hives or skin allergy. All Other Systems: Reviewed and Negative *Physical Exam - Vital Signs Last Vital Signs Temp Pulse Resp BP Pulse Ox 98.7 F 113 H 20 150/90 100 11/20/19 14:05 11/20/19 14:05 11/20/19 14:05 11/20/19 14:05 11/20/19 14:05 - Physical Exam 11/20/19 15:25 Constitutional: Awake, alert, oriented. No acute distress. Head: Normocephalic. Atraumatic Eyes: PERRL. EOMI. Conjunctivae are not pale. ENT: + Mucous membranes are dry. Posterior pharynx without exudates or erythema. Uvula midline. Neck: Supple. Full ROM. No lymphadenopathy. Cardiovascular: Regular rate. Regular rhythm. S1, S2 regular. Distal pulses are 2+ and symmetric. Pulmonary/Chest: No evidence of respiratory distress. Clear to auscultation bilaterally No wheezing, rales or rhonchi. Abdominal: +Diffuse tenderness. Soft and non-distended. No rebound, guarding or rigidity. No organomegaly. No palpable masses. Good bowel sounds. Back: No CVA tenderness. Musculoskeletal: No edema. No cyanosis. No clubbing. Full range of motion in all extremities. No calf tenderness. Radial/pedal pulses are intact and 2+ bilaterally Skin: Skin is warm and dry. No petechiae. No purpura. Neurological: Alert and oriented to person, place, and time. Cranial nerves II -XII are grossly intact. Normal speech. Strength is grossly symmetric. No sensory deficits. Psychiatric: Good eye contact. Normal interaction, affect and behavior. ED Treatment Course - RADIOLOGY Radiology Studies Ordered: 11/20/19 15:28 TYPE:CT/ABDOMEN PELVIS CT WITH CONTR Status post gastric bypass with diffuse abdominal pain CT scan of the abdomen and pelvis following oral and intravenous contrast. Coronal and sagittal reformatted images were obtained 98 cc of Omnipaque 350 was intravenously injected Comparison: Prior CT scan of the abdomen pelvis dated 10/30/2019 Visualized lung base appears unremarkable and the heart is within normal limits in size. Evaluation of the liver, spleen, pancreas, gallbladder, both adrenal glands and both kidneys appear unremarkable. Patient is status post the gastric bypass surgery with wall thickening seen around the sutures and proximal bowel loops. There is also mild dilatation of the distal esophagus with suggestion of wall thickening. The bowel loops are not dilated to suggest small bowel obstruction. Normal- appearing terminal ileum There is nondistention/collapse of the distal descending and sigmoid colon with suggestion of wall thickening. There is also a short segment of wall thickening in the proximal/ mid transverse colon as well as interval short segment of wall thickening in the proximal ascending colon around the ileocecal valve region, rule out colitis. No free air or free fluid are identified in the abdomen was enlarged lymph nodes are identified. Normal size uterus. Prominent ovaries again noted with a partially involuted right ovarian simple cyst/follicle measuring 1.3 cm. Partially distended urinary bladder without wall thickening. Visualized osseous structures appear intact IMPRESSION: Status post gastric bypass surgery with thickening of the proximal small bowel loops as well as thickening of the bowel wall around the sutures without evidence of small bowel obstruction. Dilated distal esophagus with wall thickening. Interval short segment of wall thickening in the ascending colon around the ileocecal valve region as well as in the proximal/midportion of the transverse colon and collapsed/ thickening of the distal descending and sigmoid colon. Findings are suggestive of colitis. Correlate clinically to determine further evaluation and follow-up Reported By: Lakeshia Chen MD Medical Decision Making - Medical Decision Making 11/20/19 14:30 a/p: 44yo female with abd pain, constipation x 4 days and worsening pain that started this morning at 230 -pt had a full workup - labs and ct abd/pelvis at [facility] earlier today and was dx with colitis on ct -pt was admitted under Dr. Edge - signed out AMA before receiving abx to come to for admission -case discussed with nurse in OR with Dr. Peterson who recommends discussing with Dr. Edge and with GI -will start abx in the ER -toradol for pain -ivf hydration -labs and ct imaging from earlier today reviewed -no elevated wbc -will monitor and reassess 11/20/19 14:43 dr pelayo to admit the patient Discharge - Discharge Information Problems reviewed: Yes Clinical Impression/Diagnosis: Abdominal pain, Colitis Condition: Fair - Admission Yes - Follow up/Referral - Patient Discharge Instructions - Post Discharge Activity
[2019-11-20] MEDS ORDERED: KETOROLAC TROMETHAMINE 15 MG/ML VIAL ONE (14:37)
[2019-11-20 16:17] VITALS: BMI 24.0
[2019-11-20] MEDS ORDERED: morphine CARPU-JECT 4 MG/1 ML DISP.SYRIN IM PRN (16:28)
[2019-11-20] MEDS ORDERED: ONDANSETRON 4 MG/2 ML VIAL IVPB PRN (16:28)
[2019-11-20] MEDS ORDERED: ACETAMINOPHEN 1000 MG/100 ML VIAL (NON FORMULARY) IVPB PRN (16:28)
[2019-11-20] MEDS ORDERED: clonazePAM 0.5 MG TABLET PO PRN (16:28)
[2019-11-20] MEDS ORDERED: ALBUTEROL SO4 2.5/IPRATROPIUM 0.5 INH SOL 3 ML VIAL.NEB. NEB PRN (16:35)
--- NOTE | 2019-11-20 16:53 | HP ---
Admitting History and Physical - Primary Care Physician PCP: Dave Gary - Admission Chief Complaint: ABDOMINAL PAIN History of Present Illness: The patient is a 44 year old female, with a significant past medical history of asthma, GERD, HTN, depression/anxiety, asthma, RA, fibromyalgia, recent surgery to correct internal hernia (09/2019), who presents to the emergency department with one week of constipation with new onset 1 day of sharp abdominal pain. As per patient, she has been constipated for approximately thus, she took magnesium citrate (without relief) then 48 chocolate laxatives, with relief. She notes onsetting at approximately 2:30 she began to experience sharp abdominal pain with associated nausea and non-bloody emesis, prompting her arrival to [facility] ER. Patient notes to have signed out AMA after being diagnosed with colitis secondary to her surgeon currently being at [facility]. Patient notes approximately a week after her surgery she took an injection of her Enbrel for RA secondary to a flare up against medical advice to refrain from injections to the abdomen. While at [facility], patient notes to have received Zofran, Ofirmev, and Pepcid. She denies recent fevers, chills, headache or dizziness. She denies recent dysuria, frequency, urgency or hematuria. She denies recent chest pain or shortness of breath. History Source: Medical Record Limitations to Obtaining History: Clinical Condition - Past Medical History Cardiovascular: Yes: HTN Pulmonary: Yes: Sleep Apnea Gastrointestinal: Yes: GERD ...LMP: 04/18/18 ...: No Psych: Yes: Anxiety, Panic Rheumatology: Yes: Fibromyalgia - Past Surgical History Past Surgical History: Yes: Arthrosocopy (B/L knee), Bypass (vertical sleeve gastrectomy 2011, abdominoplasty and lipo x 2) - Smoking History Smoking history: Current every day smoker Have you smoked in the past 12 months: Yes Aproximately how many cigarettes per day: 15 If you are a former smoker, when did you quit?: 10/14/18 - Alcohol/Substance Use Hx Alcohol Use: No - Social History ADL: Independent Home Medications - Allergies Allergies/Adverse Reactions: Allergies Allergy/AdvReac Type Severity Reaction Status Date / Time shellfish derived Allergy Intermediate Hives Verified 11/20/19 14:07 bupropion HCl Allergy Rash Verified 11/20/19 14:07 [From Wellbutrin] - Home Medications Home Medications: Ambulatory Orders Albuterol Sulfate [Proair Respiclick] 90 mcg IH PRN PRN 05/10/17 Zolpidem Tartrate [Ambien] 10 mg PO HS 06/04/17 cloNIDine HCL [Catapres -] 0.1 mg PO BID 06/11/17 Clonazepam [Klonopin] 2 mg PO BID 07/20/17 Amlodipine Besylate [Norvasc -] 10 mg PO DAILY 09/23/18 Etanercept [Enbrel] 50 mg SQ WEEKLY 10/28/18 Esomeprazole Magnesium [Nexium 24Hr] 40 mg PO DAILY 03/09/19 Polyethylene Glycol 3350 [Miralax 119 gm Btl -] 17 gm PO DAILY #1 bottle Sertraline HCl 100 mg PO HS 07/22/19 Budesonide/Formeterol Fumarate [SYMBICORT 160/4.5mcg -] 1 puff IH BID inhaler 10/31/19 Ciprofloxacin [Cipro (Restricted To Id)] 500 mg PO Q12H #20 tablet 11/20/19 metroNIDAZOLE [Flagyl -] 500 mg PO TID #30 tablet 11/20/19 Review of Systems - Review of Systems Constitutional: reports: Loss of Appetite, Malaise, Weakness Eyes: reports: No Symptoms HENT: reports: No Symptoms Neck: reports: No Symptoms Cardiovascular: reports: No Symptoms Respiratory: reports: No Symptoms Gastrointestinal: reports: Abdominal Pain, Bloating, Indigestion Genitourinary: reports: No Symptoms Musculoskeletal: reports: No Symptoms Integumentary: reports: No Symptoms Neurological: reports: No Symptoms Endocrine: reports: No Symptoms Hematology/Lymphatic: reports: No Symptoms Psychiatric: reports: No Symptoms Physical Examination Vital Signs: Vital Signs Temperature 98.1 F 11/20/19 16:10 Pulse Rate 96 H 11/20/19 16:10 Respiratory Rate 18 11/20/19 16:10 Blood Pressure 130/80 11/20/19 16:10 O2 Sat by Pulse Oximetry (%) 99 11/20/19 15:45 Constitutional: Yes: Moderate Distress Cardiovascular: Yes: Regular Rate and Rhythm Respiratory: Yes: WNL Gastrointestinal: Yes: Soft, Tenderness, Tenderness, Rebound Musculoskeletal: Yes: WNL Extremities: Yes: WNL Edema: No Peripheral Pulses WNL: Yes Integumentary: Yes: WNL Wound/Incision: Yes: Clean/Dry Neurological: Yes: WNL ...Motor Strength: WNL Psychiatric: Yes: WNL Imaging - Results Cat Scan: Report Reviewed Problem List - Problems (1) Abdominal pain Code(s): R10.9 - UNSPECIFIED ABDOMINAL PAIN (2) Colitis Code(s): K52.9 - NONINFECTIVE GASTROENTERITIS AND COLITIS, UNSPECIFIED (3) Asthma Code(s): J45.909 - UNSPECIFIED ASTHMA, UNCOMPLICATED (4) Bipolar affective disorder, current episode manic without psychotic symptoms Code(s): F31.10 - BIPOLAR DISORD, CRNT EPISODE MANIC W/O PSYCH FEATURES, UNSP (5) Depression Code(s): F32.9 - MAJOR DEPRESSIVE DISORDER, SINGLE EPISODE, UNSPECIFIED Qualifiers: (6) HTN (hypertension) Code(s): I10 - ESSENTIAL (PRIMARY) HYPERTENSION (7) History of Alisson-en-Y gastric bypass Code(s): Z98.84 - BARIATRIC SURGERY STATUS (8) Rheumatoid arthritis Code(s): M06.9 - RHEUMATOID ARTHRITIS, UNSPECIFIED Qualifiers: (9) S/P gastric bypass Code(s): Z98.84 - BARIATRIC SURGERY STATUS Assessment/Plan NPO EXCEPT MEDS GI/SURGERY EVAL IVF PPI IV IV LEVAQUIN/FLAGYL FOR COLITIS TREATMENT ZOFRAN PRN OOB TO CHAIR HEPARIN SQ DVT PROPHYLAXIS
[2019-11-20] MEDS: SODIUM CHLORIDE 1,000 ML IV SCH (17:00)
[2019-11-20] MEDS: NICOTINE 21 MG/24 HOURS TOPICAL PATCH TD SCH (17:00)
[2019-11-20] MEDS ORDERED: FLU VACCINE QUAD 60 MCG/0.5 ML (MDV 19-20) IM ONE (17:00)
--- NOTE | 2019-11-20 17:54 | PN ---
Progress Note (short form) - Note Progress Note: Patient seen and chart/labs/CT report reviewed with consult dictated. Patient with 4 days of constipation for which she took a liquid laxative and subsequently multiple laxative tablets. Developed abdominal pain and went to ED; has had "diarrhea" subsequently. Also with normal WBC/CBC, no fever but CT scan c/w ?colitis. Did receive antibiotics last month janette-op. Clinically doubt C diff colitis but would obtain stool test to r/o. No evidence of bowel obstruction and abdominal exam notable for normal BS, non distention and minimal nonspecific discomfort to pressure Rec stool for C diff begin clear liquid diet follow clinically
[2019-11-20] MEDS: morphine SULFATE 4 MG/ML VIAL IM PRN (18:45)
--- NOTE | 2019-11-20 19:52 | CONSULT ---
Consult - text type - Consultation Consultation Note: 44 y.o. woman admitted c/o abdominal pain of recent onset. Pt had surgery 1 month ago for internal hernia after gastric bypass performed 1 year ago. Pt states pain mostly in LLQ, states has had difficulty moving bowels and has taken many laxatives. PMH- Asthma, GERD. HTN, RA PsH- Gastric sleeve; Gastric bypass; Abdominoplasty V/S-P-80; BP-124/78 P/E- Gen- Awake, alert, NAD Abd- non-distended, soft, tender on palpation in RLQ and LLQ (less severe ) no rebound, no guarding CT scan- reveals acosta-colitis no sb dilatation no evidence of internal hernia I- Abdominal pain secondary to acosta-colitis Rec- Agree with Flagyl as per GI Can start PO liquids in AM in clinically improving Follow labs Will follow
--- NOTE | 2019-11-20 21:09 | CONS ---
DATE OF CONSULTATION: 11/20/2019 REQUESTING PHYSICIAN: Dave Gary MD Asked to evaluate this 44-year-old female with abdominal discomfort and recent diarrhea, with a CAT scan consistent with colitis. The patient has a history of rheumatoid arthritis, fibromyalgia, depression and anxiety, hypertension, gastroesophageal reflux, and asthma. She has had several surgeries for morbid obesity including a gastric sleeve by Dr. Peterson. She has also had 2 surgeries to correct internal hernias, the most recent of which was last month. The patient developed constipation 4-5 days ago; for which, she decided to treat herself with a liquid laxative, ? citrated magnesia and then multiple laxative tablets. She states that she did not have any significant bowel movements initially, but did have worsening abdominal pain and went to the emergency room. In the emergency room, she then developed some diarrhea with multiple bowel movements. The patient currently denies any nausea, vomiting, fever, or chills. She does have some mild abdominal soreness and discomfort. Her CAT scan done in the emergency room was consistent with a mild colitis diffusely. There was no evidence of bowel obstruction. The patient had no fever or chills, and her white count was normal with a normal hemoglobin. Her electrolytes and liver chemistries were normal as well. PHYSICAL EXAMINATION: General: Currently, the patient is seen lying in bed comfortably. Vital Signs: She has a temperature of 98.1 with a normal heart rate and blood pressure. Lungs: Slightly congested bilaterally. The patient is a chronic smoker. There are no rales. Cardiac: Exam is a regular rate and rhythm. Abdomen: Soft, flat. Normoactive bowel sounds and some nonspecific discomfort to deep palpation. There are well-healed surgical scars. Patient does not clinically have any signs of bowel obstruction or any evidence of bowel obstruction on her CAT scan. She does have some thickening of the colon on her CAT scan, and in view of her recent surgery and likely antibiotic treatment perioperatively, the possibility of C. difficile colitis cannot be entirely excluded, although this would be unlikely with the normal white count and the initial complaints of constipation. More likely is the problem with the constipation, subsequent laxative use, and current "diarrhea" with cramps which are all related. At the present time, patient appears relatively comfortable. We will begin patient on a clear-liquid diet and follow clinically. No further intervention suggested at the present time. A stool test of C. difficile toxin ordered. KENDRA PUENTES M.D. KARINA/[id number]
[2019-11-20] MEDS: BUDESONIDE/FORMETEROL FUMARATE 160/4.5 mcg INHALER IH SCH (21:16)
[2019-11-20] MEDS: HEPARIN NA (PORCINE) 5,000 UNITS/ML 1ML VIAL SQ SCH (21:22)
[2019-11-20] MEDS ORDERED: ZOLPIDEM TARTRATE 5 MG TABLET PO ONE (22:33)
[2019-11-20] MEDS: clonazePAM 2 MG TABLET PO PRN (22:58)
[2019-11-21] MEDS: morphine SULFATE 4 MG/ML VIAL IM PRN ×2 (00:39→14:25)
--- NOTE | 2019-11-21 07:49 | PN ---
Progress Note, Physician Chief Complaint: AWAKE ALERT FEELING BETTER STILL NPO - Current Medication List Current Medications: Active Medications Acetaminophen (Ofirmev Injection -) 1,000 mg IVPB Q6H PRN PRN Reason: PAIN LEVEL 1-5 Stop: 11/21/19 16:29 Albuterol/Ipratropium (Duoneb -) 1 amp NEB Q6H PRN PRN Reason: SHORTNESS OF BREATH Amlodipine Besylate (Norvasc -) 5 mg PO DAILY [facility] Budesonide/Formoterol Fumarate (Symbicort 160/4.5mcg -) 2 puff IH BID JEAN MARIE Last Admin: 11/20/19 21:16 Dose: 2 puff Clonazepam (Klonopin -) 2 mg PO BID PRN PRN Reason: ANXIETY Last Admin: 11/20/19 22:58 Dose: 2 mg Heparin Sodium (Porcine) (Heparin -) 5,000 unit SQ BID JEAN MARIE Last Admin: 11/20/19 21:22 Dose: 5,000 unit Metronidazole (Flagyl 250mg Premixed Ivpb -) 250 mg in 50 mls @ 50 mls/hr IVPB Q8H-IV JEAN MARIE Last Admin: 11/21/19 02:00 Dose: 50 mls/hr Levofloxacin (Levaquin 750 Mg Premixed Ivpb -) 750 mg in 150 mls @ 100 mls/hr IVPB DAILY [facility]; Protocol Sodium Chloride (Normal Saline -) 1,000 mls @ 100 mls/hr IV ASDIR JEAN MARIE Last Admin: 11/20/19 17:00 Dose: 100 mls/hr Morphine Sulfate (Morphine Sulfate) 4 mg IM Q8H PRN PRN Reason: PAIN LEVEL 6-10 Last Admin: 11/21/19 00:39 Dose: 4 mg Nicotine (Nicoderm Patch -) 21 mg TD DAILY [facility] Last Admin: 11/20/19 17:00 Dose: 21 mg Ondansetron HCl (Zofran Injection) 8 mg IVPB Q6H PRN PRN Reason: NAUSEA Last Admin: 11/21/19 06:22 Dose: 8 mg Pantoprazole Sodium (Protonix Iv) 40 mg IVPUSH DAILY [facility] Sertraline HCl (Zoloft -) 100 mg PO DAILY [facility] - Objective Vital Signs: Vital Signs Temperature 98.0 F 11/21/19 06:00 Pulse Rate 86 11/21/19 06:00 Respiratory Rate 19 02/25/20 06:00 Blood Pressure 128/82 11/21/19 06:00 O2 Sat by Pulse Oximetry (%) 97 11/21/19 06:05 Constitutional: Yes: No Distress HENT: Yes: WNL Neck: Yes: WNL Cardiovascular: Yes: WNL Respiratory: Yes: WNL Gastrointestinal: Yes: Soft Genitourinary: Yes: WNL Musculoskeletal: Yes: WNL Extremities: Yes: WNL Edema: No Integumentary: Yes: WNL Wound/Incision: Yes: Clean/Dry Neurological: Yes: WNL ...Motor Strength: WNL Psychiatric: Yes: Other Problem List - Problems (1) Abdominal pain Code(s): R10.9 - UNSPECIFIED ABDOMINAL PAIN (2) Colitis Code(s): K52.9 - NONINFECTIVE GASTROENTERITIS AND COLITIS, UNSPECIFIED (3) Asthma Code(s): J45.909 - UNSPECIFIED ASTHMA, UNCOMPLICATED (4) Bipolar affective disorder, current episode manic without psychotic symptoms Code(s): F31.10 - BIPOLAR DISORD, CRNT EPISODE MANIC W/O PSYCH FEATURES, UNSP (5) Depression Code(s): F32.9 - MAJOR DEPRESSIVE DISORDER, SINGLE EPISODE, UNSPECIFIED Qualifiers: (6) HTN (hypertension) Code(s): I10 - ESSENTIAL (PRIMARY) HYPERTENSION (7) History of Alisson-en-Y gastric bypass Code(s): Z98.84 - BARIATRIC SURGERY STATUS (8) Rheumatoid arthritis Code(s): M06.9 - RHEUMATOID ARTHRITIS, UNSPECIFIED Qualifiers: (9) S/P gastric bypass Code(s): Z98.84 - BARIATRIC SURGERY STATUS Assessment/Plan [facility] DIET LABS REVIEWED KCL REPLETE OOB TO CHAIR DAY #2 ABX DVT PROPHYLAXIS OOB TO CHAIR DC PLANNING TOMORROW
[2019-11-21 08:08] LABS: HEMATOCRIT 31.1 % (32.4-45.2); MCH 30.7 pg (25.7-33.7); MCHC 32.3 g/dl (32.0-36.0); MEAN PLT VOLUME 8.7 fl (7.5-11.1); PLATELET COUNT 231 K/MM3 (134-434); RBC 3.27 M/mm3 (3.60-5.2); RDW 14.8 % (11.6-15.6); WHITE BLOOD COUNT 4.4 K/mm3 (4.0-10.8)
[2019-11-21 08:16] LABS: ALBUMIN 2.7 g/dl (3.4-5.0); ALK PHOS 102 U/L (45-117); ANION GAP 4 MMOL/L (8-16); BILIRUBIN,TOTAL 1.2 mg/dl (0.2-1); CALCIUM 7.6 mg/dl (8.5-10); CHLORIDE 105 mmol/L (98-107); CO2 27 mmol/L (21-32); CREATININE 0.6 mg/dl (0.55-1.3); GLUCOSE,RANDOM 90 mg/dl (74-106); POTASSIUM 3.3 mmol/L (3.5-5.1); SGOT/AST 74 U/L (15-37); SGPT/ALT 23 U/L (13-61); SODIUM 136 mmol/L (136-145); TOT PROT 5.5 g/dl (6.4-8.2)
[2019-11-21 08:59] LABS: ERYTHROCYTE SEDIMENTATION RATE 14 mm/hr (0-20)
[2019-11-21] MEDS ORDERED: POTASSIUM CHLORIDE TABS 10 MEQ TABLET.ER (FP) PO ONE (09:00)
[2019-11-21] MEDS: HEPARIN NA (PORCINE) 5,000 UNITS/ML 1ML VIAL SQ SCH ×2 (09:42→21:48)
[2019-11-21] MEDS: SERTRALINE HCL 50 MG TABLET (FP) PO SCH (09:42)
[2019-11-21] MEDS: amLODIPine BESYLATE 5 MG TABLET (FP) PO SCH (09:42)
[2019-11-21] MEDS: clonazePAM 2 MG TABLET PO PRN ×2 (09:42→21:48)
[2019-11-21] MEDS: NICOTINE 21 MG/24 HOURS TOPICAL PATCH TD SCH (09:42)
--- NOTE | 2019-11-21 09:42 | PN ---
Progress Note (short form) - Note Progress Note: SURGERY 44yo F h/o gastric bypass with subsequent internal hernia repaired 09/2019, pt currently diagnosed with colitis. Pt states abd pain is improved today and that she is hungry. Pt denies n/v, fever, chills, diarrhea, bloody stool. Last Vital Signs Temp Pulse Resp BP Pulse Ox 98.0 F 86 16 128/82 98 11/21/19 06:00 11/21/19 06:00 11/21/19 09:00 11/21/19 06:00 11/21/19 09:00 CBC, BMP 11/21/19 07:18 11/21/19 07:18 PE Gen: A&O x3 Resp: breathing comfortably Abd: soft, nondistended, mild lower abd tenderness. Ext: no edema Problem List - Problems (1) Colitis Assessment/Plan: Plan -will start on clears this morning -continue abx as per medicine -serial abd exams Pt discussed with Dr. Peterson who agrees with plan Code(s): K52.9 - NONINFECTIVE GASTROENTERITIS AND COLITIS, UNSPECIFIED
[2019-11-21] MEDS: BUDESONIDE/FORMETEROL FUMARATE 160/4.5 mcg INHALER IH SCH ×2 (09:43→21:49)
[2019-11-21] MEDS ORDERED: PANTOPRAZOLE SODIUM 40 MG VIAL IVPUSH SCH (10:00)
[2019-11-21] MEDS ORDERED: PT OWN MED DRAWER 7, Y5N ONE ×2 (10:23→18:05)
[2019-11-21] MEDS ORDERED: FLU VACCINE QUAD 60 MCG/0.5 ML (MDV 19-20) IM ONE (11:00)
--- NOTE | 2019-11-21 12:01 | PN ---
Progress Note (short form) - Note Progress Note: Afebrile; VSS Pt feels better Decresed abdominal pain + BM-loose States has hunger No N/V P/E- Abd- non-distended; soft, mild tenderness on deep palpation in LLQ no rebound, no guarding WBC-4.4 H/H-07/27.1 K+-3.3 I- Abdominal pain (improving) Hummel-colitis Rec- Continue antibiotics Replace K+ Advance diet as tolerated
[2019-11-21] MEDS: SODIUM CHLORIDE 1,000 ML IV SCH (16:00)
[2019-11-21] MEDS ORDERED: ZOLPIDEM TARTRATE 5 MG TABLET PO ONE (20:55)
[2019-11-22] MEDS: morphine SULFATE 4 MG/ML VIAL IM PRN ×2 (00:27→08:40)
[2019-11-22] MEDS ORDERED: PT OWN MED DRAWER 7, Y5N ONE (01:22)
--- NOTE | 2019-11-22 08:54 | PN ---
Progress Note, Physician Chief Complaint: AWAKE ALERT C/O SHE IS HUNGRY ALERT AND ORIENTED NO EVENTS OVERNIGHT +BOWEL MOVEMENT - Current Medication List Current Medications: Active Medications Albuterol/Ipratropium (Duoneb -) 1 amp NEB Q6H PRN PRN Reason: SHORTNESS OF BREATH Amlodipine Besylate (Norvasc -) 5 mg PO DAILY [facility] Last Admin: 11/21/19 09:42 Dose: 5 mg Budesonide/Formoterol Fumarate (Symbicort 160/4.5mcg -) 2 puff IH BID JEAN MARIE Last Admin: 11/21/19 21:49 Dose: 2 puff Clonazepam (Klonopin -) 2 mg PO BID PRN PRN Reason: ANXIETY Last Admin: 11/21/19 21:48 Dose: 2 mg Heparin Sodium (Porcine) (Heparin -) 5,000 unit SQ BID [facility] Last Admin: 11/21/19 21:48 Dose: 5,000 unit Metronidazole (Flagyl 250mg Premixed Ivpb -) 250 mg in 50 mls @ 50 mls/hr IVPB Q8H-IV JEAN MARIE Last Admin: 11/22/19 01:25 Dose: 50 mls/hr Levofloxacin (Levaquin 750 Mg Premixed Ivpb -) 750 mg in 150 mls @ 100 mls/hr IVPB DAILY [facility]; Protocol Last Admin: 11/21/19 09:43 Dose: 100 mls/hr Sodium Chloride (Normal Saline -) 1,000 mls @ 100 mls/hr IV ASDIR [facility] Last Admin: 11/21/19 16:00 Dose: 100 mls/hr Morphine Sulfate (Morphine Sulfate) 4 mg IM Q8H PRN PRN Reason: PAIN LEVEL 6-10 Last Admin: 11/22/19 08:40 Dose: 4 mg Nicotine (Nicoderm Patch -) 21 mg TD DAILY [facility] Last Admin: 11/21/19 09:42 Dose: 21 mg Ondansetron HCl (Zofran Injection) 8 mg IVPB Q6H PRN PRN Reason: NAUSEA Last Admin: 11/21/19 06:22 Dose: 8 mg Pantoprazole Sodium (Protonix Iv) 40 mg IVPUSH DAILY [facility] Last Admin: 11/21/19 09:41 Dose: 40 mg Sertraline HCl (Zoloft -) 100 mg PO DAILY [facility] Last Admin: 11/21/19 09:42 Dose: 100 mg - Objective Vital Signs: Vital Signs Temperature 98.4 F 11/22/19 06:00 Pulse Rate 80 11/22/19 06:00 Respiratory Rate 19 11/22/19 06:00 Blood Pressure 124/83 11/22/19 06:00 O2 Sat by Pulse Oximetry (%) 99 11/22/19 06:37 Constitutional: Yes: Mild Distress Cardiovascular: Yes: WNL Respiratory: Yes: WNL Gastrointestinal: Yes: Soft, Tenderness Genitourinary: Yes: WNL Musculoskeletal: Yes: WNL Extremities: Yes: WNL Edema: No Integumentary: Yes: Other (OLD SCARS ON ARMS) Wound/Incision: Yes: Open to air Neurological: Yes: WNL ...Motor Strength: WNL Psychiatric: Yes: Other Labs: CBC, BMP 11/21/19 07:18 11/21/19 07:18 Problem List - Problems (1) Abdominal pain Code(s): R10.9 - UNSPECIFIED ABDOMINAL PAIN (2) Colitis Code(s): K52.9 - NONINFECTIVE GASTROENTERITIS AND COLITIS, UNSPECIFIED (3) Asthma Code(s): J45.909 - UNSPECIFIED ASTHMA, UNCOMPLICATED (4) Bipolar affective disorder, current episode manic without psychotic symptoms Code(s): F31.10 - BIPOLAR DISORD, CRNT EPISODE MANIC W/O PSYCH FEATURES, UNSP (5) Depression Code(s): F32.9 - MAJOR DEPRESSIVE DISORDER, SINGLE EPISODE, UNSPECIFIED Qualifiers: (6) HTN (hypertension) Code(s): I10 - ESSENTIAL (PRIMARY) HYPERTENSION (7) History of Alisson-en-Y gastric bypass Code(s): Z98.84 - BARIATRIC SURGERY STATUS (8) Rheumatoid arthritis Code(s): M06.9 - RHEUMATOID ARTHRITIS, UNSPECIFIED Qualifiers: (9) S/P gastric bypass Code(s): Z98.84 - BARIATRIC SURGERY STATUS Assessment/Plan [facility] DIET ON CLEARS NOW I HAVE ADDED STRAINED SOUP LABS REVIEWED KCL REPLETED YESTERDAY I ORDERED LABS THIS MORNING OOB TO CHAIR DAY #3 ABX DVT PROPHYLAXIS OOB TO CHAIR DC PLANNING PER SURGERY
[2019-11-22 09:36] LABS: HEMATOCRIT 32.4 % (32.4-45.2); HEMOGLOBIN 10.1 GM/dl (10.7-15.3); MCH 30.6 pg (25.7-33.7); MEAN CELL VOLUME 98.9 fl (80-96); MEAN PLT VOLUME 7.9 fl (7.5-11.1); PLATELET COUNT 213 K/MM3 (134-434); RBC 3.28 M/mm3 (3.60-5.2); RDW 15.3 % (11.6-15.6); WHITE BLOOD COUNT 3.6 K/mm3 (4.0-10.8)
[2019-11-22] MEDS: NICOTINE 21 MG/24 HOURS TOPICAL PATCH TD SCH (09:37)
[2019-11-22] MEDS: amLODIPine BESYLATE 5 MG TABLET (FP) PO SCH (09:37)
[2019-11-22] MEDS: PANTOPRAZOLE 40 MG TABLET PO SCH (09:37)
[2019-11-22] MEDS: SERTRALINE HCL 50 MG TABLET (FP) PO SCH (09:38)
[2019-11-22] MEDS: HEPARIN NA (PORCINE) 5,000 UNITS/ML 1ML VIAL SQ SCH ×2 (09:38→21:40)
[2019-11-22] MEDS: BUDESONIDE/FORMETEROL FUMARATE 160/4.5 mcg INHALER IH SCH ×2 (09:39→21:40)
[2019-11-22 09:41] LABS: CALCIUM 7.9 mg/dl (8.5-10); CREATININE 0.6 mg/dl (0.55-1.3); MAGNESIUM 1.3 mg/dL (1.8-2.4); POTASSIUM 3.5 mmol/L (3.5-5.1)
[2019-11-22] MEDS: clonazePAM 2 MG TABLET PO PRN ×2 (09:57→22:39)
[2019-11-22] MEDS ORDERED: levoFLOXacin 750 MG TABLET PO SCH (10:00)
[2019-11-22] MEDS: metroNIDAZOLE 250 MG TABLET PO SCH ×2 (13:33→21:40)
[2019-11-22] MEDS: KETOROLAC TROMETHAMINE 30 MG/1 ML VIAL IVPUSH PRN (17:54)
[2019-11-22] MEDS ORDERED: MAGNESIUM SULF 50% (8.12 MEQ/2 ML-1 GM VIAL) IVPB ONE (18:13)
[2019-11-22] MEDS ORDERED: MELATONIN 1 MG TABLET PO ONE (22:32)
[2019-11-23] MEDS: KETOROLAC TROMETHAMINE 30 MG/1 ML VIAL IVPUSH PRN (04:09)
[2019-11-23] MEDS: metroNIDAZOLE 250 MG TABLET PO SCH (06:23)
--- NOTE | 2019-11-23 07:18 | DS ---
Physical Examination Vital Signs: Vital Signs Temperature 98.1 F 11/23/19 06:00 Pulse Rate 69 11/23/19 06:00 Respiratory Rate 16 11/23/19 06:00 Blood Pressure 139/79 11/23/19 06:00 O2 Sat by Pulse Oximetry (%) 100 11/23/19 06:00 AWAKE ALERT Findings/Remarks: TOLERATED BREAKFAST READY FOR DISCHARGE CULTURES ALL NEGATIVE Constitutional: Yes: No Distress Cardiovascular: Yes: Regular Rate and Rhythm Respiratory: Yes: WNL Gastrointestinal: Yes: WNL Musculoskeletal: Yes: WNL Extremities: Yes: WNL Edema: No Labs: CBC, BMP 11/22/19 09:15 11/22/19 09:15 Discharge Summary Problems reviewed: Yes Reason For Visit: COLITIS Current Active Problems Abdominal pain (Acute) Colitis (Acute) Procedures: Principal: STOOL AND BLOOD CULTURES. CT SCANS Hospital Course: ADMITTED FOR COLITIS , IV ABX STOPPED AFTER 3 DAYS BC CULTURES NEGATIVE AND ESR WITH CRP NORMAL LIMITS. DC HOME ON SOFT DIET Plan of Treatment: FLAGYLL FOR 7 DAYS TID, SOFT DIET Condition: Fair - Instructions Diet, Activity, Other Instructions: SEE DR DAVILA IN 1 WEEK CONTNUE FLAGYL 500MG TID FOR 7 DAYS SOFT DIET Disposition: HOME - Home Medications Comprehensive Discharge Medication List: Ambulatory Orders Albuterol Sulfate [Proair Respiclick] 90 mcg IH PRN PRN 05/10/17 Zolpidem Tartrate [Ambien] 10 mg PO HS 06/04/17 cloNIDine HCL [Catapres -] 0.1 mg PO BID 06/11/17 Clonazepam [Klonopin] 2 mg PO BID 07/20/17 Amlodipine Besylate [Norvasc -] 10 mg PO DAILY 09/23/18 Etanercept [Enbrel] 50 mg SQ WEEKLY 10/28/18 Esomeprazole Magnesium [Nexium 24Hr] 40 mg PO DAILY 03/09/19 Polyethylene Glycol 3350 [Miralax 119 gm Btl -] 17 gm PO DAILY #1 bottle Sertraline HCl 100 mg PO HS 07/22/19 Budesonide/Formeterol Fumarate [SYMBICORT 160/4.5mcg -] 1 puff IH BID inhaler 10/31/19 metroNIDAZOLE [Flagyl -] 500 mg PO TID #30 tablet 11/20/19 Nicotine Patch [Nicoderm Patch -] 21 mg TD DAILY #30 patch 11/23/19 metroNIDAZOLE [Flagyl -] 500 mg PO TID #21 tablet 11/23/19
[2019-11-23 09:53] VITALS: BP 130/68; PULSE 72; TEMP 98.7
[2019-11-23] MEDS: amLODIPine BESYLATE 5 MG TABLET (FP) PO SCH (09:54)
[2019-11-23] MEDS: PANTOPRAZOLE 40 MG TABLET PO SCH (09:54)
[2019-11-23] MEDS: HEPARIN NA (PORCINE) 5,000 UNITS/ML 1ML VIAL SQ SCH (09:54)
[2019-11-23] MEDS: SERTRALINE HCL 50 MG TABLET (FP) PO SCH (09:54)
[2019-11-23] MEDS: NICOTINE 21 MG/24 HOURS TOPICAL PATCH TD SCH (09:54)
[2019-11-23] MEDS: clonazePAM 2 MG TABLET PO PRN (09:54)
[2019-11-23] MEDS: BUDESONIDE/FORMETEROL FUMARATE 160/4.5 mcg INHALER IH SCH (09:55)
[2019-11-27] MEDS ORDERED: cloNIDine-TTS 0.1 MG/24 HRS PATCH.TDWK TD SCH (10:00)
== END 2019-11-23 10:30 | disposition home or self-care (01) | DRG 392 ==
LOC: FER 14:05 → FM/S 14:34
PROVIDERS: ADMIT Family Medicine; ATTEND Family Medicine
DX: K52.9 Noninfective gastroenteritis and colitis, unspecified (principal); F31.10 Bipolar disorder, current episode manic without psychotic features, unspecified; R10.9 Unspecified abdominal pain; J45.909 Unspecified asthma, uncomplicated; I10 Essential (primary) hypertension; M06.9 Rheumatoid arthritis, unspecified; K21.9 Gastro-esophageal reflux disease without esophagitis; F41.8 Other specified anxiety disorders; F17.210 Nicotine dependence, cigarettes, uncomplicated
CPT/HCPCS: 36415; 80048; 80053; 83735; 85027; 85651; 86140; 87324; 87449; 99285-25; J1644; J7030; Q2036

== ENCOUNTER 2019-11-30 01:56 | Emergency (ER) | payer BC ==
[2019-11-30 02:11] VITALS: BP 110/73; PULSE 75; TEMP 98.4; BMI 24.0
--- NOTE | 2019-11-30 02:21 | PDOC ---
History of Present Illness - General Chief Complaint: Pain, Acute Stated Complaint: ABD PAIN Time Seen by Provider: 11/30/19 02:16 History Source: Patient Exam Limitations: No Limitations - History of Present Illness Initial Comments: 11/30/19 02:31 This is a 44-year-old female who comes in complaining of abdominal pain. Patient was discharged from the hospital approximately 1 week ago for constipation and colitis. Patient otherwise has history significant for asthma, GERD, HTN, depression/anxiety, asthma, RA, fibromyalgia, recent surgery to correct internal hernia. Patient now comes in complaining of abdominal pain. Patient said abdominal pain is diffuse but not associated with any nausea vomiting or diarrhea. patient says she is having normal bowel movements at this time. Patient denies any fevers or chills. Allergies: as per nursing notes Past Medical History: none Social history: Lives with family. No smoking. No alcohol. No illicit drugs. Surgical history: None General: No fevers or chills, no weakness, no weight loss HEENT: No change in vision. No sore throat,. No ear pain CardioVascular: no chest discomfort. No shortness of breath Respiratory:No cough, or wheezing. Gastrointestinal: no nausea, vomiting, diarrhea or constipation, No rectal bleeding, plus abdominal pain as per HPI Genitourinary: No dysuria, hematuria, or frequency Musculoskeletal: No joint or muscle pain or swelling Neurologic: No headache, vertigo, dizziness or loss of consciousness Psychiatric: nor depression Skin: No rashes or easy bruising Endocrine: no increased thirst or abnormal weight change Allergic: no skin or latex allergy All other systems reviewed and normal Exam: General: Well-nourished well-developed individual, no acute distress HEENT: Throat: Normal, tonsils normal, no erythema or exudate Neck: Supple, no meningeal signs, no lymphadenopathy Eyes::Pupils equal reactive and round, extraocular motion intact Chest: Nontender to palpation Cardiac: S1-S2 normal, regular rate and rhythm, no murmurs rubs or gallops Respiratory: Lungs clear to auscultation bilateral Abdomen: Soft, nondistended, normal bowel sounds, there is tenderness across the mid and lower abdomen diffusely no guarding or rebound. Extremities: Warm, dry, no cyanosis, clubbing, or edema Skin: No rashes Neuro: Alert and oriented x3, CN II - XII intact, nonfocal exam with normal strength, normal sensation, normal reflexes, normal gait, Psych: Normal mood and affect Assessment and plan: This is a 44-year-old female with abdominal pain. Work-up initiated including CBC, comp, lipase, lactic acid. Patient will drink for a p.o. and oral contrast IV. CAT scan revealed no acute pathology of the abdomen however it did show a new lung nodule. I discussed the lung nodule finding with the patient patient stated that she was aware of the lung nodule and was following up with her 06/07 doctor regarding the lung nodule. Patient felt better, was tolerating p.o.'s and was discharged home will follow- up with her doctors. Past History - Past Medical History Allergies/Adverse Reactions: Allergies Allergy/AdvReac Type Severity Reaction Status Date / Time shellfish derived Allergy Intermediate Hives Verified 11/20/19 14:07 bupropion HCl Allergy Rash Verified 11/20/19 14:07 [From Wellbutrin] Home Medications: Ambulatory Orders Albuterol Sulfate [Proair Respiclick] 90 mcg IH PRN PRN 05/10/17 Zolpidem Tartrate [Ambien] 10 mg PO HS 06/04/17 cloNIDine HCL [Catapres -] 0.1 mg PO BID 06/11/17 Clonazepam [Klonopin] 2 mg PO BID 07/20/17 Amlodipine Besylate [Norvasc -] 10 mg PO DAILY 09/23/18 Etanercept [Enbrel] 50 mg SQ WEEKLY 10/28/18 Esomeprazole Magnesium [Nexium 24Hr] 40 mg PO DAILY 03/09/19 Polyethylene Glycol 3350 [Miralax 119 gm Btl -] 17 gm PO DAILY #1 bottle 07/22/19 Sertraline HCl 100 mg PO HS 07/22/19 Budesonide/Formeterol Fumarate [SYMBICORT 160/4.5mcg -] 1 puff IH BID inhaler 10/31/19 metroNIDAZOLE [Flagyl -] 500 mg PO TID #30 tablet 11/20/19 Nicotine Patch [Nicoderm Patch -] 21 mg TD DAILY #30 patch 11/23/19 Ondansetron [Zofran *Odt*] 4 mg SL TID PRN #21 od.tablet 11/23/19 Tramadol HCl 50 mg PO Q8H PRN #21 tablet MDD 3 11/23/19 metroNIDAZOLE [Flagyl -] 500 mg PO TID #21 tablet 11/23/19 Fluconazole [Diflucan] 150 mg PO ONCE #2 tablet 11/28/19 Anemia: Yes Asthma: Yes (USES INHALERPROAIR) Cancer: No Cardiac Disorders: No CVA: No COPD: No CHF: No Dementia: No Diabetes: No GI Disorders: Yes (COLITIS) Disorders: No HTN: Yes Hypercholesterolemia: No Liver Disease: No Psychiatric Problems: Yes (DEPRESSION, anxiety) Seizures: No Thyroid Disease: No - Surgical History Abdominal Surgery: Yes (VERTICAL SLEEVE GASTRECTOMY 2011, ABDOMINOPLASTY/AND REVISION, LIPO X2,) Appendectomy: No Cardiac Surgery: No Cholecystectomy: No GI Surgery: Yes (GASTRIC BYPASS and gastric sleeve) Lung Surgery: No Neurologic Surgery: No Orthopedic Surgery: Yes (RIGHT KNEE, SHOULDER SX, WRIST SX) - Immunization History Td Vaccination: Yes TDAP Vaccination: Yes Immunization Up to Date: Yes - Psycho Social/Smoking Cessation Hx Smoking Status: No Smoking History: Current every day smoker Years of Tobacco Use: 24 Have you smoked in the past 12 months: Yes Number of Cigarettes Smoked Daily: 15 If you are a former smoker, when did you quit?: 10/14/18 Information on smoking cessation initiated: Yes 'Breaking Loose' booklet given: 11/20/19 Hx Alcohol Use: No Drug/Substance Use Hx: No Substance Use Type: None Hx Substance Use Treatment: No *Physical Exam - Vital Signs Last Vital Signs Temp Pulse Resp BP Pulse Ox 98.4 F 75 16 110/73 100 11/30/19 02:00 11/30/19 02:00 11/30/19 02:00 11/30/19 02:00 11/30/19 02:00 ED Treatment Course - LABORATORY CBC & Chemistry Diagram: 11/30/19 02:40 11/30/19 02:40 Discharge - Discharge Information Problems reviewed: Yes Clinical Impression/Diagnosis: Abdominal pain Condition: Stable Disposition: HOME - Follow up/Referral Referrals: Zane Mckoy MD [Primary Care Provider] - - Patient Discharge Instructions - Post Discharge Activity
[2019-11-30 03:40] LABS: BASO % 0.6 % (0-2.0); EOS % 1.2 % (0-4.5); HEMATOCRIT 31.7 % (32.4-45.2); HEMOGLOBIN 10.3 GM/dL (10.7-15.3); LYMPH % 29.4 % (8-40); MCH 30.8 pg (25.7-33.7); MCHC 32.5 g/dl (32.0-36.0); MEAN CELL VOLUME 94.6 fl (80-96); MEAN PLT VOLUME 8.2 fl (7.5-11.1); MONO % 12.3 % (3.8-10.2); NEUT % 56.5 % (42.8-82.8); PLATELET COUNT 328 K/MM3 (134-434); RBC 3.35 M/mm3 (3.60-5.2); RDW 16.4 % (11.6-15.6); WHITE BLOOD COUNT 5.8 K/mm3 (4.0-10.0)
[2019-11-30 03:46] LABS: EPI CELLS 5.4 /HPF (0-5/HPF); HYALINE CASTS 4 /lpf (0-8); PH,URINE 5.5 (5.0-8.0); URINE APPEARANCE CLEAR; URINE BACTERIA 104.6 /hpf (NEGATIVE); URINE BILIRUBIN NEGATIVE (NEGATIVE); URINE COLOR YELLOW; URINE GLUCOSE (UA) NEGATIVE (NEGATIVE); URINE KETONE TRACE (NEGATIVE); URINE LEUK ESTERASE TRACE (NEGATIVE); URINE NITRITE NEGATIVE (NEGATIVE); URINE PROTEIN 1+ (NEGATIVE); URINE RBC 2 /hpf (0-4); URINE UROBILINOGEN 0.2 mg/dL (0.2-1.0); URINE WBC 2 /hpf (0-5)
[2019-11-30] MEDS ORDERED: KETOROLAC TROMETHAMINE 30 MG/1 ML VIAL IVPUSH ONE (03:52)
[2019-11-30] MEDS ORDERED: SODIUM CHLORIDE 1,000 ML IV ONE (03:53)
[2019-11-30] MEDS ORDERED: KETOROLAC TROMETHAMINE 30 MG/1 ML VIAL ONE (03:54)
[2019-11-30 07:07] LABS: ALBUMIN 3.3 g/dl (3.4-5.0); BILIRUBIN,TOTAL 0.3 mg/dL (0.2-1); BLOOD UREA NITROGEN 13.4 mg/dL (7-18); CALCIUM 8.2 mg/dL (8.5-10.1); CREATININE 0.9 mg/dL (0.55-1.3); POTASSIUM 3.6 mmol/L (3.5-5.1); TOT PROT 6.7 g/dl (6.4-8.2)
== END 2019-11-30 06:45 | disposition home or self-care (01) ==
LOC: FER 01:56
PROC: 3E0333Z Introduction of Anti-inflammatory into Peripheral Vein, Percutaneous Approach (ICD-10-PCS; principal; 2019-11-30)
PROC: 3E0337Z Introduction of Electrolytic and Water Balance Substance into Peripheral Vein, Percutaneous Approach (ICD-10-PCS; 2019-11-30)
DX: R10.84 Generalized abdominal pain (principal); Z91.013 Allergy to seafood; Z88.8 Allergy status to other drugs, medicaments and biological substances
CPT/HCPCS: 36415; 74177-TC; 80053; 81003; 83605; 83690; 84702; 85025; 99285-25; J7030

== ENCOUNTER 2020-04-12 18:49 | Emergency (ER) | payer BC, OTHER ==
[2020-04-12 18:52] VITALS: BP 115/80; PULSE 88; TEMP 98.2; BMI 20.1
[2020-04-12] MEDS ORDERED: KETOROLAC TROMETHAMINE 60 MG/2 ML VIAL IM ONE (22:11)
[2020-04-12] MEDS ORDERED: KETOROLAC TROMETHAMINE 60 MG/2 ML VIAL ONE (22:14)
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
== END 2020-04-12 22:23 | disposition home or self-care (01) ==
LOC: FER 18:49 → SUPCPDRO 18:49 → FER 22:23
PROC: 3E023GC Introduction of Other Therapeutic Substance into Muscle, Percutaneous Approach (ICD-10-PCS; principal; 2020-04-12)
DX: S13.9XXA Sprain of joints and ligaments of unspecified parts of neck, initial encounter (principal); V49.40XA Driver injured in collision with unspecified motor vehicles in traffic accident, initial encounter
CPT/HCPCS: 72050-TC-FY; 99284-25

== ENCOUNTER 2020-04-15 23:45 | Emergency (ER) | payer BC, OTHER ==
[2020-04-16 00:56] VITALS: BMI 20.2
--- NOTE | 2020-04-16 01:26 | PDOC ---
*Physical Exam - Vital Signs Last Vital Signs Temp Pulse Resp BP Pulse Ox 98.6 F 101 H 17 140/90 99 04/15/20 23:50 04/15/20 23:50 04/15/20 23:50 04/15/20 23:50 04/15/20 23:50 Medical Decision Making - Medical Decision Making 04/16/20 01:26 Patient seen by the advanced practice provider under my supervision. Ancillary testing reviewed as necessary. I agree with plan as outlined by the advanced practice provider. Discharge - Discharge Information Problems reviewed: Yes Clinical Impression/Diagnosis: Right shoulder pain Qualifiers: Chronicity: acute Qualified Code(s): M25.511 - Pain in right shoulder Condition: Fair Disposition: HOME - Follow up/Referral Referrals: Zane Mckoy MD [Primary Care Provider] - Carrillo Roberts DO [Staff Physician] - Call tomorrow - Patient Discharge Instructions Patient Printed Discharge Instructions: DI for Shoulder Pain Additional Instructions: Keep in sling. Apply ice to the area. Follow-up with the orthopedic doctor as soon as possible. Return for any worsening symptoms - Post Discharge Activity Work/Back to School Note: Back to Work
[2020-04-16] MEDS ORDERED: KETOROLAC TROMETHAMINE 30 MG/1 ML VIAL IM ONE (02:11)
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
[2020-04-16] MEDS ORDERED: KETOROLAC TROMETHAMINE 30 MG/1 ML VIAL ONE (02:15)
[2020-04-16 02:34] VITALS: BP 126/89; PULSE 102; TEMP 98
== END 2020-04-16 03:50 | disposition home or self-care (01) ==
LOC: JER 23:45
PROC: 3E0233Z Introduction of Anti-inflammatory into Muscle, Percutaneous Approach (ICD-10-PCS; principal; 2020-04-15)
DX: K04.7 Periapical abscess without sinus (principal); M25.511 Pain in right shoulder
CPT/HCPCS: 73030-TC-RT-FY; 99284-25

== ENCOUNTER 2020-05-06 05:56 | Emergency (ER) | payer BC, OTHER ==
--- NOTE | 2020-05-06 05:59 | PDOC ---
History of Present Illness - General Chief Complaint: Pain Stated Complaint: abdominal pain/yeast infection Time Seen by Provider: 05/06/20 05:58 - History of Present Illness Initial Comments: 05/06/20 06:03 he patient is a 45-year-old female with a past medical history significant for rheumatoid arthritis, GERD, Asthma, HTN, depression, anxiety, panic attacks,s/p gastric sleeve procedure, s/p abdominoplasty x3, s/p liposuction x2, s/p emergent internal hernia with obstruction repair (January 2019), s/p SBO (Sep 2019) who presents to the emergency department with abdominal discomfort and frequent loose stools with mucus for the last several days. No vomiting, fever/chills or blood/black stools noted. Patient states that the symptoms are consistent with previous episodes of colitis (diagnosed by CT of abdomen and pelvis) which were effectively treated with Levaquin/Flagyl oral course. Since the onset of symptoms, the patient has been taking Flagyl tablets left over from previous course. She is susceptible to vaginal/vulvar candidiasis and has developed symptoms consistent with this diagnosis (pruritus/inflammation/erythema of external vulva and vaginal tissues). Medications as noted below Allergies: Shellfish, bupropion Pt smokes 1/2 - 1 pack per day; drinks alcohol 2-3 times per week; no other recreational drug use Past History - Medical History Allergies/Adverse Reactions: Allergies Allergy/AdvReac Type Severity Reaction Status Date / Time shellfish derived Allergy Intermediate Hives Verified 05/06/20 06:05 bupropion HCl Allergy Rash Verified 05/06/20 06:05 [From Wellbutrin] Home Medications: Ambulatory Orders Albuterol Sulfate [Proair Respiclick] 90 mcg IH PRN PRN 05/10/17 Zolpidem Tartrate [Ambien] 10 mg PO HS 06/04/17 cloNIDine HCL [Catapres -] 0.1 mg PO BID 06/11/17 Clonazepam [Klonopin] 2 mg PO BID 07/20/17 Amlodipine Besylate [Norvasc -] 10 mg PO DAILY 09/23/18 Etanercept [Enbrel] 50 mg SQ WEEKLY 10/28/18 Esomeprazole Magnesium [Nexium 24Hr] 40 mg PO DAILY 03/09/19 Polyethylene Glycol 3350 [Miralax 119 gm Btl -] 17 gm PO DAILY #1 bottle 07/22/19 Sertraline HCl 100 mg PO HS 07/22/19 Budesonide/Formeterol Fumarate [SYMBICORT 160/4.5mcg -] 1 puff IH BID inhaler 10/31/19 metroNIDAZOLE [Flagyl -] 500 mg PO TID #30 tablet 11/20/19 Nicotine Patch [Nicoderm Patch -] 21 mg TD DAILY #30 patch 11/23/19 Ondansetron [Zofran *Odt*] 4 mg SL TID PRN #21 od.tablet 11/23/19 Tramadol HCl 50 mg PO Q8H PRN #21 tablet MDD 3 11/23/19 Fluconazole [Diflucan] 150 mg PO ONCE #2 tablet 11/28/19 Fluconazole [Diflucan] 150 mg PO ONCE #2 tablet 02/19/20 levoFLOXacin [Levaquin -] 750 mg PO DAILY #7 tablet 02/28/20 Tramadol HCl 50 mg PO QID PRN #10 tablet MDD 4 03/07/20 Fluconazole [Diflucan] 150 mg PO ONCE #1 tablet 03/09/20 traMADol HCL [Ultram -] 50 mg PO Q8H PRN #12 tablet MDD 3 tabs 04/12/20 Amoxicillin/Potassium Clav [Augmentin 875-125 Tablet] 1 each PO BID #14 tablet 04/16/20 Fluconazole [Diflucan] 150 mg PO ONCE #4 tablet 05/06/20 Levofloxacin [Levaquin] 750 mg PO DAILY #14 tablet 05/06/20 metroNIDAZOLE [Flagyl -] 500 mg PO TID #42 tablet 05/06/20 Anemia: Yes Asthma: Yes (USES INHALERPROAIR) Cancer: No Cardiac Disorders: No CVA: No COPD: No CHF: No Dementia: No Diabetes: No GI Disorders: Yes (COLITIS) Disorders: No HTN: Yes Hypercholesterolemia: No Liver Disease: No Psychiatric Problems: Yes (DEPRESSION, anxiety) Seizures: No Thyroid Disease: No - Surgical History Abdominal Surgery: Yes (VERTICAL SLEEVE GASTRECTOMY 2011, ABDOMINOPLASTY/AND REVISION, LIPO X2,) Appendectomy: No Cardiac Surgery: No Cholecystectomy: No GI Surgery: Yes (GASTRIC BYPASS and gastric sleeve) Lung Surgery: No Neurologic Surgery: No Orthopedic Surgery: Yes (RIGHT KNEE, SHOULDER SX, WRIST SX) - Immunization History Td Vaccination: Yes TDAP Vaccination: Yes Immunization Up to Date: Yes - Psycho-Social/Smoking History Smoking Status: No Smoking History: Never smoked Years of Tobacco Use: 24 Have you smoked in the past 12 months: Yes Number of Cigarettes Smoked Daily: 15 If you are a former smoker, when did you quit?: 10/14/18 'Breaking Loose' booklet given: 01/02/20 Review of Systems - Review of Systems Able to Perform ROS?: Yes Comments:: 12 point review of systems is negative except for what is noted in the history of present illness *Physical Exam - Physical Exam GENERAL: Adult female, alert and oriented x3, no acute distress HEAD: Normal with no signs of trauma. EYES: PERRLA, EOMI, sclera anicteric, conjunctiva clear. ENT: Ears normal, nares patent, oropharynx clear without exudates. Dry mucous membranes. NECK: Normal range of motion, supple without lymphadenopathy, JVD, or masses. LUNGS: Breath sounds equal, expiratory rhonchi bilaterally, some clearance with coughing HEART:Regular rate and rhythm, normal S1 and S2 without murmur, rub or gallop. ABDOMEN:.normal bowel sounds No guarding,tenderness or rebound.No masses No distention. EXTREMITIES: Normal range of motion, no edema. No clubbing or cyanosis. No erythema, or tenderness. NEUROLOGICAL: Cranial nerves II through XII grossly intact. Normal speech. No focal neurological deficits. MUSCULOSKELETAL: Back non-tender to palpation, no CVA tenderness SKIN: Warm, Dry, normal turgor, no rashes or lesions noted. Medical Decision Making - Medical Decision Making 05/06/20 06:44 This 45-year-old woman with multiple medical problems including rheumatoid art hritis (on immunosuppressive therapy) and s/p gastric sleeve resection with subsequent internal hernia has presented to this ER multiple times over the last several months with abdominal discomfort and diarrhea. She has had serial abdominal/pelvic CT studies which have, especially in recent months, indicated that she has had colitis. She presents today with recurrence of similar symptoms. In the past, her colitis was responsive to Levaquin/Flagyl course. Exam as noted was generally benign with somewhat dry mucous membranes and flat, nontender abdomen with active bowel sounds. Since the patient is not vomiting, has no fever or abdominal tenderness on exam and symptoms are totally consistent with previous episodes of colitis, will empirically start her back on Levaquin/Flagyl course that was effective for control of her colitis symptoms when prescribed in February of this year. She had had a follow-up appointment with Dr. Gab Valdes after that bout of colitis; at that time, colonoscopy was deferred and patient was instructed on dietary modification. The patient states that she continues monitoring her diet carefully as per the suggestions. The patient has been strongly urged to follow-up with Dr. Valdes as well as with her general medical doctor, Dr. Larios within the next few days. If she has any worsening of her abdominal pain or if she develops vomiting/fever/bloody diarrhea, she should return to the ER immediately Patient was also provided with prescription for Diflucan 150 mg to be taken daily for symptoms of candidiasis. Discharge - Discharge Information Problems reviewed: Yes Clinical Impression/Diagnosis: Colitis Condition: Stable Disposition: HOME - Additional Discharge Information Prescriptions: Fluconazole [Diflucan] 150 mg PO ONCE #4 tablet metroNIDAZOLE [Flagyl -] 500 mg PO TID #42 tablet Levofloxacin [Levaquin] 750 mg PO DAILY #14 tablet - Follow up/Referral Referrals: Zane Mckoy MD [Primary Care Provider] - Gab Valdes MD [Staff Physician] - - Patient Discharge Instructions Patient Printed Discharge Instructions: DI for Colitis Additional Instructions: Levaquin 750 mg daily Flagyl 500 mg 3 times a day Diflucan 150 mg once as needed for yeast infection Continue dietary modification as discussed Drink plenty of fluids Follow-up with Dr. Larios and with Dr. Valdes within the next 5 days as discussed Return to ER if you have worsening abdominal pain, fever, vomiting, bloody diarrhea - Post Discharge Activity
[2020-05-06 06:13] VITALS: BP 159/107; PULSE 104; TEMP 98.2; BMI 19.3
== END 2020-05-06 06:35 | disposition home or self-care (01) ==
LOC: FER 05:56
DX: K52.9 Noninfective gastroenteritis and colitis, unspecified (principal)
CPT/HCPCS: 99282-25

== ENCOUNTER 2020-05-16 19:14 | Emergency (ER) | payer BC ==
[2020-05-16] MEDS ORDERED: MECLIZINE HCL 25 MG TABLET (FP) PO ONE (19:53)
[2020-05-16] MEDS ORDERED: ONDANSETRON *ODT* 4 MG TABLET ONE (19:53)
[2020-05-16] MEDS ORDERED: ONDANSETRON 4 MG/2 ML VIAL IVPB ONE (19:53)
[2020-05-16] MEDS ORDERED: MECLIZINE HCL 25 MG TABLET (FP) ONE (19:55)
[2020-05-16] MEDS ORDERED: ONDANSETRON *ODT* 4 MG TABLET SL STA (19:59)
[2020-05-16 20:04] LABS: BASO % 1.2 % (0-2.0); EOS % 0.9 % (0-4.5); HEMOGLOBIN 10.5 GM/dl (10.7-15.3); MCH 30.6 pg (25.7-33.7); MCHC 31.7 g/dl (32.0-36.0); MEAN CELL VOLUME 96.7 fl (80-96); MEAN PLT VOLUME 8.1 fl (7.5-11.1); NEUT % 39.9 % (42.8-82.8); PLATELET COUNT 301 K/MM3 (134-434); RBC 3.42 M/mm3 (3.60-5.2); RDW 16.4 % (11.6-15.6); WHITE BLOOD COUNT 3.5 K/mm3 (4.0-10.8)
[2020-05-16 20:19] LABS: EPITHELIAL CELLS FEW /hpf
[2020-05-16 20:21] LABS: ALBUMIN 3.5 g/dl (3.4-5.0); BILIRUBIN,TOTAL 0.5 mg/dl (0.2-1); CALCIUM 8.5 mg/dl (8.5-10); CREATININE 0.8 mg/dl (0.55-1.3); POTASSIUM 3.8 mmol/L (3.5-5.1); TOT PROT 6.7 g/dl (6.4-8.2)
[2020-05-16 20:49] VITALS: TEMP 98.2; BMI 20.1
[2020-05-16 21:05] VITALS: BP 110/73; PULSE 85
[2020-05-16] MEDS ORDERED: AZITHROMYCIN 250 MG TABLET PO ONE (21:12)
--- NOTE | 2020-05-16 21:14 | PDOC ---
Documentation entered by Ryder Pruett SCRIBE, acting as scribe for Alex Min MD. Alex Min MD: This documentation has been prepared by the Flynn amin Angel, SCRIBE, under my direction and personally reviewed by me in its entirety. I confirm that the documentation accurately reflects all work, treatment, procedures, and medical decision making performed by me. History of Present Illness - General Chief Complaint: Lightheaded Stated Complaint: DIZZINESS Time Seen by Provider: 05/16/20 19:31 History Source: Patient Exam Limitations: No Limitations - History of Present Illness Initial Comments: 05/16/20 19:46 The patient is a 45 year old female who presents to the ED with 4 days of dizziness, chest pain, nausea and vomiting. The patient has a history of multiple works up and visits with multiple complaints that come back negative. The patient comes in today with multiple medical complaints, stating that she passed out yesterday for an undetermined amount of time. The patient states she feels like the room is spinning especially when she turns too quickly. The patient states she has felt fatigue lately and that it's not like her normal self. The patient reports at least one episode of NBNB vomiting with associated nausea but is unable to confirm how many. The patient denies fever/chills, head trauma, abdominal pain or any other complaints. PAST MEDICAL HISTORY: Rheumatoid arthritis, GERD, Asthma, HTN, depression, anxiety, panic attacks,s/p gastric sleeve procedure, s/p abdominoplasty x3, s/p liposuction x2, s/p emergent internal hernia with obstruction repair (January 2019), s/p SBO (Sep 2019) FAMILY HISTORY: no pertinent history MEDICATIONS: reviewed ALLERGIES: As per nursing notes 05/16/20 21:08 Assessment and plan: This is a 45-year-old female who comes in with multiple co mplaints. Patient had a complete work-up including a head CT and EKG and blood work. Patient's primary complaint was a sensation of dizziness or spinning consistent with vertigo. Patient had CT did show a sphenoid sinusitis which could be also be contributing to her dizziness so I will start her on azithromycin for the sinusitis. And have her follow-up with her primary care doctor Past History - Medical History Allergies/Adverse Reactions: Allergies Allergy/AdvReac Type Severity Reaction Status Date / Time shellfish derived Allergy Intermediate Hives Verified 05/16/20 19:16 bupropion HCl Allergy Rash Verified 05/16/20 19:16 [From Wellbutrin] Home Medications: Ambulatory Orders Albuterol Sulfate [Proair Respiclick] 90 mcg IH PRN PRN 05/10/17 Zolpidem Tartrate [Ambien] 10 mg PO HS 06/04/17 cloNIDine HCL [Catapres -] 0.1 mg PO BID 06/11/17 Clonazepam [Klonopin] 2 mg PO BID 07/20/17 Amlodipine Besylate [Norvasc -] 10 mg PO DAILY 09/23/18 Etanercept [Enbrel] 50 mg SQ WEEKLY 10/28/18 Esomeprazole Magnesium [Nexium 24Hr] 40 mg PO DAILY 03/09/19 Sertraline HCl 100 mg PO HS 07/22/19 Budesonide/Formeterol Fumarate [SYMBICORT 160/4.5mcg -] 1 puff IH BID inhaler 10/31/19 Azithromycin 250 mg PO DAILY #4 tablet 05/16/20 Meclizine HCl [Antivert -] 25 mg PO QID #28 tablet 05/16/20 Anemia: Yes Asthma: Yes (USES INHALERPROAIR) Cancer: No Cardiac Disorders: No CVA: No COPD: No CHF: No Dementia: No Diabetes: No GI Disorders: Yes (COLITIS) Disorders: No HTN: Yes Hypercholesterolemia: No Liver Disease: No Psychiatric Problems: Yes (DEPRESSION, anxiety) Seizures: No Thyroid Disease: No - Surgical History Abdominal Surgery: Yes (VERTICAL SLEEVE GASTRECTOMY 2012, ABDOMINOPLASTY/AND REVISION, LIPO X2,) Appendectomy: No Cardiac Surgery: No Cholecystectomy: No GI Surgery: Yes (GASTRIC BYPASS and gastric sleeve) Lung Surgery: No Neurologic Surgery: No Orthopedic Surgery: Yes (RIGHT KNEE, SHOULDER SX, WRIST SX) - Reproductive History Is Patient Now?: No - Immunization History Td Vaccination: Yes TDAP Vaccination: Yes Immunization Up to Date: Yes - Psycho-Social/Smoking History Smoking Status: No Smoking History: Current every day smoker Years of Tobacco Use: 24 Have you smoked in the past 12 months: Yes Number of Cigarettes Smoked Daily: 15 If you are a former smoker, when did you quit?: 10/14/18 Information on smoking cessation initiated: Yes 'Breaking Loose' booklet given: 01/02/20 - Substance Abuse Hx (Audit-C & DAST Scrn) How often the patient has a drink containing alcohol: 2-3 times / week Number of drinks the patient has on a typical day: 3 or 4 How often the patient has six or more drinks on one occasion: Never Score: In Men: 4 or > Positive; In Women: 3 or > Positive: 4 Screen Result (Pos requires Nsg. Audit-10AR): Positive In the last yr the pt used illegal drug/Rx for NonMed reason: No Score: Yes response is considered Positive: 0 Screen Result (Positive result requires Nsg. DAST-10): Negative Review of Systems - Review of Systems Able to Perform ROS?: Yes Comments:: 05/16/20 19:49 General: +Fatigue. No fevers or chills, no weight loss HEENT: No change in vision. No sore throat. No ear pain CardioVascular: +Chest pain. No shortness of breath Respiratory:No cough, or wheezing. Gastrointestinal:+Nausea/Vomiting. No diarrhea or constipation, No rectal bleeding Genitourinary: No dysuria, hematuria, or frequency Musculoskeletal: No joint or muscle pain or swelling Neurologic: +Dizziness and loss of consciousness. No headache, vertigo. Skin: No rashes or easy bruising Endocrine: no increased thirst or abnormal weight change Allergic: no skin or latex allergy All other systems reviewed and normal *Physical Exam - Vital Signs Last Vital Signs Temp Pulse Resp BP Pulse Ox 98.2 F 72 18 108/75 100 05/16/20 19:15 05/16/20 19:15 05/16/20 19:15 05/16/20 19:15 05/16/20 19:15 - Physical Exam 05/16/20 20:07 General: Well-nourished well-developed individual, no acute distress HEENT: Throat: Normal, tonsils normal, no erythema or exudate Neck: Supple, no meningeal signs, no lymphadenopathy Eyes::Pupils equal reactive and round, extraocular motion intact Chest: Nontender to palpation Cardiac: S1-S2 normal, regular rate and rhythm, no murmurs rubs or gallops Respiratory: Lungs clear to auscultation bilateral Abdomen: Soft, nondistended, normal bowel sounds, nontender to palpation diffusely Extremities: Warm, dry, no cyanosis, clubbing, or edema Skin: No rashes Neuro: Alert and oriented x3, nonfocal exam, grossly intact, normal gait Psych: Normal mood and affect ED Treatment Course - LABORATORY CBC & Chemistry Diagram: 05/16/20 19:51 05/16/20 19:50 Discharge - Discharge Information Problems reviewed: Yes Clinical Impression/Diagnosis: Dizziness Sphenoid sinusitis Qualifiers: Chronicity: subacute Qualified Code(s): J01.30 - Acute sphenoidal sinusitis, unspecified Condition: Stable Disposition: HOME - Admission No - Additional Discharge Information Prescriptions: Meclizine HCl [Antivert -] 25 mg PO QID #28 tablet Azithromycin 250 mg PO DAILY #4 tablet - Follow up/Referral Referrals: Zane Mckoy MD [Primary Care Provider] - - Patient Discharge Instructions Additional Instructions: Take azithromycin 1 tablet a day for the next 4 days you are given the first dose here. Your CAT scan showed that you have a sphenoid sinusitis that most likely is contributing to your dizziness. In addition to the azithromycin you can take meclizine 1 tablet as often as every 4-6 hours if needed for the dizziness/spinning sensation. Return to the emergency department immediately with ANY new, persistent or worsening symptoms. Continue any medications as previously prescribed by your physician. You should follow up with your primary doctor as soon as possible regarding today's emergency department visit. . Please make sure your doctor reviews the results of your emergency evaluation. Thank you for coming to the Emergency Department today for your care. It was a pleasure to see you today. Please note that your evaluation is INCOMPLETE until you follow-up with your doctor. - Post Discharge Activity
[2020-05-16] MEDS ORDERED: AZITHROMYCIN 500 MG TABLET ONE (21:15)
--- NOTE | 2020-05-17 10:40 | EKG ---
Test Reason : Blood Pressure : / mmHG Vent. Rate : 049 BPM Atrial Rate : 049 BPM P-R Int : 136 ms QRS Dur : 076 ms QT Int : 516 ms P-R-T Axes : 042 -15 031 degrees QTc Int : 466 ms SINUS BRADYCARDIA WITH PREMATURE ATRIAL COMPLEXES OTHERWISE NORMAL ECG WHEN COMPARED WITH ECG OF 28-FEB-2020 07:11, PREMATURE ATRIAL COMPLEXES ARE NOW PRESENT VENT. RATE HAS DECREASED BY 32 BPM T WAVE AMPLITUDE HAS DECREASED IN ANTERIOR LEADS Confirmed by ELLA SANTACRUZ MD ([id number]) on 05/17/2020 10:40:14 AM Referred By: DR LEGER Confirmed By:ELLA SANTACRUZ MD
== END 2020-05-16 21:36 | disposition home or self-care (01) ==
LOC: FER 19:14
PROC: 3E033NZ Introduction of Analgesics, Hypnotics, Sedatives into Peripheral Vein, Percutaneous Approach (ICD-10-PCS; principal; 2020-05-16)
DX: R42 Dizziness and giddiness (principal); J01.30 Acute sphenoidal sinusitis, unspecified
CPT/HCPCS: 36415; 70450-TC; 80053; 81003; 81015; 82550; 84484; 85025; 93005; 99285-25; Q0162

== ENCOUNTER 2020-05-22 21:38 | Emergency (ER) | payer BC ==
[2020-05-22 21:50] VITALS: BP 128/89; PULSE 111; TEMP 97.8; BMI 19.5
[2020-05-22] MEDS ORDERED: ONDANSETRON 4 MG/2 ML VIAL IVPUSH ONE (22:58)
[2020-05-22] MEDS ORDERED: SODIUM CHLORIDE 1,000 ML IV STA (22:58)
--- NOTE | 2020-05-23 00:05 | PDOC ---
Documentation entered by Brianna Bolanos SCRIBE, acting as scribe for Jacqueline Turner MD. Jacqueline Turner MD: This documentation has been prepared by the allanibeLuis Miguel Lincy, SCRIBE, under my direction and personally reviewed by me in its entirety. I confirm that the documentation accurately reflects all work, treatment, procedures, and medical decision making performed by me. History of Present Illness - General Chief Complaint: Nausea/Vomiting Stated Complaint: ABOMINAL PAIN History Source: Patient Exam Limitations: No Limitations - History of Present Illness Initial Comments: 05/22/20 23:01 The patient is a 45-year-old female with a past medical history significant for rheumatoid arthritis, GERD, Asthma, HTN, depression, anxiety, panic attacks,s/p gastric sleeve procedure, s/p abdominoplasty x3, s/p liposuction x2, s/p emergent internal hernia with obstruction repair (January 2019), s/p SBO (Sep 2019) who presents to the emergency department with abdominal pain, nausea, vomiting and diarrhea. The patient presents with 2 days of worsening abdominal pain, associated with nausea, bilious emesis and diarrhea. The patient reports she was having multiple episodes of solid stool passing yesterday, which worsened into yellow, and mucousy liquid stool last night into today. The patient reports applying heat to the abdomen, without relief. The patient denies having any recent abdominal pain or associated symptoms prior to yesterday. The patient reports she had a barium swallow test with small bowel followthrough done today (05/22), which was significant for possible colitis. Although she is complaining of mild nausea on presentation, the patient was able to eat small amounts of solid foods as well as drink liquids this evening without vomiting Past History - Medical History Allergies/Adverse Reactions: Allergies Allergy/AdvReac Type Severity Reaction Status Date / Time shellfish derived Allergy Intermediate Hives Verified 05/22/20 21:40 bupropion HCl Allergy Rash Verified 05/22/20 21:40 [From Wellbutrin] Home Medications: Ambulatory Orders Albuterol Sulfate [Proair Respiclick] 90 mcg IH PRN PRN 05/10/17 Zolpidem Tartrate [Ambien] 10 mg PO HS 06/04/17 cloNIDine HCL [Catapres -] 0.1 mg PO BID 09/15/17 Clonazepam [Klonopin] 2 mg PO BID 07/20/17 Amlodipine Besylate [Norvasc -] 10 mg PO DAILY 09/23/18 Etanercept [Enbrel] 50 mg SQ WEEKLY 10/28/18 Esomeprazole Magnesium [Nexium 24Hr] 40 mg PO DAILY 03/09/19 Sertraline HCl 100 mg PO HS 07/22/19 Budesonide/Formeterol Fumarate [SYMBICORT 160/4.5mcg -] 1 puff IH BID inhaler 10/31/19 Azithromycin 250 mg PO DAILY #4 tablet 05/16/20 Meclizine HCl [Antivert -] 25 mg PO QID #28 tablet 05/16/20 Ciprofloxacin [Cipro (Restricted To Id)] 500 mg PO Q12H #28 tablet 05/23/20 Ondansetron [Zofran *Odt*] 4 mg SL BID PRN #10 tab 05/23/20 metroNIDAZOLE [Metronidazole] 500 mg PO TID #42 tablet 05/23/20 traMADol HCL [Ultram -] 50 mg PO BID PRN #6 tablet MDD 2 tabs 05/23/20 Anemia: Yes Asthma: Yes (USES INHALERPROAIR) Cancer: No Cardiac Disorders: No CVA: No COPD: No CHF: No Dementia: No Diabetes: No GI Disorders: Yes (COLITIS) Disorders: No HTN: Yes Hypercholesterolemia: No Liver Disease: No Psychiatric Problems: Yes (DEPRESSION, anxiety) Seizures: No Thyroid Disease: No - Surgical History Abdominal Surgery: Yes (VERTICAL SLEEVE GASTRECTOMY 2012, ABDOMINOPLASTY/AND REVISION, LIPO X2,) Appendectomy: No Cardiac Surgery: No Cholecystectomy: No GI Surgery: Yes (GASTRIC BYPASS and gastric sleeve) Lung Surgery: No Neurologic Surgery: No Orthopedic Surgery: Yes (RIGHT KNEE, SHOULDER SX, WRIST SX) - Immunization History Td Vaccination: Yes TDAP Vaccination: Yes Immunization Up to Date: Yes - Psycho-Social/Smoking History Smoking Status: No Smoking History: Current every day smoker Years of Tobacco Use: 24 Have you smoked in the past 12 months: Yes Number of Cigarettes Smoked Daily: 15 If you are a former smoker, when did you quit?: 10/14/18 'Breaking Loose' booklet given: 01/02/20 Review of Systems - Review of Systems Able to Perform ROS?: Yes Comments:: 05/22/20 23:01 CONSTITUTIONAL: Pt denies Fever, Chills, weakness. HEENT: denies vision changes, sore throat RESPIRATORY: Denies cough, sob, hemoptysis CARDIAC: denies chest pain, palpitations, lightheadedness, leg swelling ABD/GI: +abdominal pain, nausea, vomiting and diarrhea. Denies blood per rectum, melena. Denies Hematemesis. : denies dysuria, frequency, discharge MSK: denies back pain, joint swelling SKIN: denies bruising, erythema, rash NEUROLOGICAL: denies headache, numbness, focal weakness, tingling, ataxia, weakness HEMATOLOGICAL: denies anemia, easy bruising, easy bleeding *Physical Exam - Physical Exam 05/22/20 23:02 GENERAL: The patient is awake, alert, and fully oriented, in no acute distress. HEAD: Normal with no signs of trauma. EYES: Pupils equal, round and reactive to light, extraocular movements intact, sclera anicteric, conjunctiva clear with no pallor. ENT: +dry mucous membranes. Ears normal, nares patent, oropharynx clear without exudates. NECK: Normal range of motion, supple without lymphadenopathy, JVD, or masses. CHEST WALL: no substernal tenderness, no rib tenderness. LUNGS: Breath sounds equal, clear to auscultation bilaterally. No wheeze/crackles. HEART: Regular rate and rhythm, normal S1 and S2 without murmur or rub. ABDOMEN: +mild left lower quadrant tenderness, +mild left upper quadrant tenderness. Soft, no guarding, no rebound, no masses. Normal bowel sound. EXTREMITIES: Normal range of motion, no edema. No clubbing or cyanosis. No cords, erythema, or tenderness. NEUROLOGICAL: Cranial nerves II through XII grossly intact. Normal speech, normal gait. PSYCH: Normal mood, normal affect. SKIN: Warm, Dry, normal turgor, no rashes or lesions noted. Medical Decision Making - Medical Decision Making As noted above, this 45-year-old woman with multiple medical problems and chronic intermittent abdominal pain over the last few years presents with few day history of left-sided abdominal pain and diarrhea. Patient states these are symptoms consistent with her persistent, intermittent colitis that she has experienced over the last several months. Patient had barium swallow with small bowel follow-through earlier today, ordered by Dr. Peterson (her bariatric surgeon). Patient states that she was told that this study showed evidence that she had colitis. Exam as noted Interpretation of the contrast study by Dr. Willoughby of the radiology staff: Gastric ulcer involving the fundus of the stomach extending to the left. The small bowel study was normal but there was suggestion that the mid to distal transverse colon was narrowed, possibly colitis. Results discussed with Dr. Peterson, who suggested starting antibiotic course Although initial plan was to evaluate laboratory studies to rule out electrolyte abnormalities or significant dehydration, venipuncture/IV access was extremely difficult. Patient was given Zofran ODT 4 mg with resolution of any residual nausea (patient was actually able to eat some Greek food and drink fluids without vomiting prior to presentation in the ER). Plan regarding resumption of antibiotics discussed with the patient. The patient states that she had severe "dumping syndrome" symptoms from Levaquin when she was treated for colitis with this antibiotic. Cipro 500 mg twice a day will be substituted for Levaquin. Flagyl 500 mg 3 times a day will also be prescribed Toradol 60 mg IM given. Small (#6 ) prescription for tramadol 50 mg twice a day as needed for pain sent to her pharmacy. She should call Dr. Mckoy, her PMD tomorrow to discuss chely's ER visit and to follow-up as arranged. Meanwhile, work documentation provided so that she return on Wednesday, May 25. 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 within the next 5 to 7 days Discharge - Discharge Information Problems reviewed: Yes Clinical Impression/Diagnosis: Colitis Condition: Stable Disposition: HOME - Additional Discharge Information Prescriptions: Ciprofloxacin [Cipro (Restricted To Id)] 500 mg PO Q12H #28 tablet metroNIDAZOLE [Metronidazole] 500 mg PO TID #42 tablet traMADol HCL [Ultram -] 50 mg PO BID PRN #6 tablet MDD 2 tabs PRN Reason: Severe Pain Ondansetron [Zofran *Odt*] 4 mg SL BID PRN #10 tab PRN Reason: Nausea - Follow up/Referral - Patient Discharge Instructions Patient Printed Discharge Instructions: DI for Colitis Additional Instructions: Continue to drink frequent small amounts of fluids to keep yourself hydrated Light diet as tolerated Zofran ODT 4 mg up to twice a day as needed for nausea Cipro 500 mg twice a day/Flagyl 500 mg 3 times a day No work until May 25 Follow-up with Dr. Valdes within the next week Call Dr. Mckoy tomorrow and discuss today's ER visit; follow-up as arranged Return to ER if you have persistent vomiting, severe pain or you develop fever - Post Discharge Activity Work/Back to School Note: Back to Work
[2020-05-23] MEDS ORDERED: ONDANSETRON *ODT* 4 MG TABLET SL ONE (00:34)
[2020-05-23] MEDS ORDERED: ONDANSETRON *ODT* 4 MG TABLET ONE (00:36)
[2020-05-23] MEDS ORDERED: CIPROFLOXACIN 500 MG TABLET (RESTRICTED TO ID) PO ONE (00:58)
[2020-05-23] MEDS ORDERED: KETOROLAC TROMETHAMINE 60 MG/2 ML VIAL IM ONE (01:01)
[2020-05-23] MEDS ORDERED: metroNIDAZOLE 500 MG TABLET PO ONE (01:01)
[2020-05-23] MEDS ORDERED: KETOROLAC TROMETHAMINE 60 MG/2 ML VIAL ONE (01:07)
[2020-05-23] MEDS ORDERED: metroNIDAZOLE 250 MG TABLET ONE (01:07)
[2020-05-23] MEDS ORDERED: CIPROFLOXACIN 250 MG TABLET (RESTRICTED TO ID) PO ONE (01:08)
== END 2020-05-23 01:59 | disposition home or self-care (01) ==
LOC: FER 21:38
PROC: 3E033NZ Introduction of Analgesics, Hypnotics, Sedatives into Peripheral Vein, Percutaneous Approach (ICD-10-PCS; principal; 2020-05-22)
PROC: 3E0337Z Introduction of Electrolytic and Water Balance Substance into Peripheral Vein, Percutaneous Approach (ICD-10-PCS; 2020-05-22)
DX: K52.9 Noninfective gastroenteritis and colitis, unspecified (principal)
CPT/HCPCS: 74220-TC-FY; 74250-TC-FY; 99284-25; Q0162

== ENCOUNTER 2020-06-08 19:40 | Emergency (ER) | payer BC ==
[2020-06-08 19:52] VITALS: BP 156/91; PULSE 92; TEMP 98.3; BMI 20.3
[2020-06-08] MEDS ORDERED: ACETAMINOPHEN 1000 MG/100 ML VIAL (NON FORMULARY) IVPB ONE (19:53)
[2020-06-08] MEDS ORDERED: SODIUM CHLORIDE 0.9% 500 ML INFUS.BAG IV ONE (19:53)
--- NOTE | 2020-06-08 20:00 | PDOC ---
History of Present Illness - General Chief Complaint: Pain, Acute Stated Complaint: COLITIS Time Seen by Provider: 06/08/20 19:53 History Source: Patient Exam Limitations: No Limitations - History of Present Illness Initial Comments: 06/08/20 19:56 [id number] with h/o frequent colitis (seen on 05/22/20 and 05/06/20 most recently), sleeve gastrectomy, s/p abdominoplasty x3, s/p liposuction x2, internal hernia with obstruction repair (January 2019), s/p SBO (Sep 2019), rheumatoid arthritis, GERD, asthma, HTN, depression, anxiety, and panic attacks, who p/w continued LLQ pain same as her prior colitis. Was given Cipro/Flagyl on 05/22/20 in the ED which she states she completed (14 day course) but notes the pain is still present. States she always gets vaginal yeast infection when taking antibiotic but denies any vaginal pain, itching, discharge, dysuria, foul odor, or other symptoms. Has been drinking alcohol even though on Flagyl. Denies f/c/n/v/d/c but does have mucus in stool same as her prior colitis per her report. She took ibuprofen today only. Took Tramadol yesterday. She wants to be admitted for IV antibiotics. Past History - Medical History Allergies/Adverse Reactions: Allergies Allergy/AdvReac Type Severity Reaction Status Date / Time shellfish derived Allergy Intermediate Hives Verified 05/22/20 21:40 bupropion HCl Allergy Rash Verified 05/22/20 21:40 [From Wellbutrin] Home Medications: Ambulatory Orders Zolpidem Tartrate [Ambien] 10 mg PO HS 06/04/17 cloNIDine HCL [Catapres -] 0.1 mg PO BID 06/11/17 Clonazepam [Klonopin] 2 mg PO BID 07/20/17 Amlodipine Besylate [Norvasc -] 5 mg PO DAILY 09/23/18 Etanercept [Enbrel] 50 mg SQ WEEKLY 10/28/18 Esomeprazole Magnesium [Nexium 24Hr] 40 mg PO DAILY 03/09/19 Sertraline HCl 100 mg PO HS 07/22/19 Budesonide/Formeterol Fumarate [SYMBICORT 160/4.5mcg -] 1 puff IH BID inhaler 10/31/19 Meclizine HCl [Antivert -] 25 mg PO QID #28 tablet 05/16/20 Ciprofloxacin [Cipro (Restricted To Id)] 500 mg PO Q12H #28 tablet 05/23/20 Ondansetron [Zofran *Odt*] 4 mg SL BID PRN #10 tab 05/23/20 metroNIDAZOLE [Metronidazole] 500 mg PO TID #42 tablet 05/23/20 traMADol HCL [Ultram -] 50 mg PO BID PRN #6 tablet MDD 2 tabs 05/23/20 Fluconazole 150 mg PO ONCE #1 tablet 06/08/20 Potassium Chloride [K-Dur -] 40 meq PO DAILY #6 tablet.er 06/08/20 Anemia: Yes Asthma: Yes (USES INHALERPROAIR) Cancer: No Cardiac Disorders: No CVA: No COPD: No CHF: No Dementia: No Diabetes: No GI Disorders: Yes (COLITIS) Disorders: No HTN: Yes Hypercholesterolemia: No Liver Disease: No Psychiatric Problems: Yes (DEPRESSION, anxiety) Seizures: No Thyroid Disease: No - Surgical History Abdominal Surgery: Yes (VERTICAL SLEEVE GASTRECTOMY 2012, ABDOMINOPLASTY/AND REVISION, LIPO X2,) Appendectomy: No Cardiac Surgery: No Cholecystectomy: No GI Surgery: Yes (GASTRIC BYPASS and gastric sleeve) Lung Surgery: No Neurologic Surgery: No Orthopedic Surgery: Yes (RIGHT KNEE, SHOULDER SX, WRIST SX) - Reproductive History Is Patient Now?: No - Immunization History Td Vaccination: Yes TDAP Vaccination: Yes Immunization Up to Date: Yes - Psycho-Social/Smoking History Smoking Status: No Smoking History: Current every day smoker Years of Tobacco Use: 24 Have you smoked in the past 12 months: Yes Number of Cigarettes Smoked Daily: 15 If you are a former smoker, when did you quit?: 10/14/18 Information on smoking cessation initiated: Yes 'Breaking Loose' booklet given: 01/02/20 Review of Systems - Review of Systems Able to Perform ROS?: Yes Comments:: 06/08/20 19:59 stool mucus, LLQ pain *Physical Exam - Vital Signs Last Vital Signs Temp Pulse Resp BP Pulse Ox 98.3 F 92 H 16 156/91 100 06/08/20 19:41 06/08/20 19:41 06/08/20 19:41 06/08/20 19:41 06/08/20 19:41 - Physical Exam 06/09/20 00:29 GENERAL: well-appearing, A/Ox4, no distress, answers questions appropriately, pleasant, adult female person of color, appears comfortable HEENT: PERRLA, EOMI, moist mucous membranes NECK/BACK: no midline ttp, no spinal step-off or deformity, no hematoma, full ROM, neck supple CARDIOVASCULAR: regular rate/rhythm, no MGR, strong peripheral pulses, capillary refill <2 seconds, extremities wwp, no edema LUNGS/RESPIRATORY: no respiratory distress, CTAB GI/ABDOMEN: symmetric [id number], normoactive BS, soft, minimal suprapubic ttp, no midline pulsatile masses : no CVA tenderness, pelvic with normal external appearance, small amount white cottage cheese discharge, non malodorous, os closed, bimanual without ttp MSK/EXTREMITIES: no muscle atrophy, no acute deformity SKIN: warm and dry, no pallor, no jaundice, no rash, no pathologic-appearing bruising, no skin breakdown, no cuts, no lesions NEUROLOGICAL: GCS 15, CN II-XII grossly intact, 5/5 strength proximally and distally, no facial droop ED Treatment Course - LABORATORY CBC & Chemistry Diagram: 06/08/20 20:05 06/08/20 19:59 - RADIOLOGY Radiology Studies Ordered: Category Date Time Status ABDOMEN & PELVIS CT WITH CONTR [CT] Stat CT Scan 06/08/20 19:52 Ordered Medical Decision Making - Medical Decision Making 06/09/20 00:16 [id number] with extensive h/o GI surgeries and recurrent colitis, who p/w lower abdominal pain. Initial Vital Signs Temp Pulse Resp BP Pulse Ox 98.3 F 92 H 16 156/91 100 06/08/20 19:41 06/08/20 19:41 06/08/20 19:41 06/08/20 19:41 06/08/20 19:41 Most likely recurrence of colitis with possible abscess or perforation, possible partial SBO, possible recurrence of internal hernia, possible diverticulitis or pyelonephritis, etc. Also possible simple constipation, or chronic GI issue e.g. IBD or IBS or Crohn's disease or UC. Provider Orders Category Date Time Status TYPE AND SCREEN Stat Blood Bank 06/08/20 20:39 Completed ABDOMEN & PELVIS CT WITH CONTR [CT] Stat CT Scan 06/08/20 19:52 Taken CBC WITH DIFFERENTIAL Stat Lab 06/08/20 20:05 Completed COMP METABOLIC PANEL Stat Lab 06/08/20 19:59 Completed MAGNESIUM Stat Lab 06/08/20 19:59 Completed UA ([facility] ONLY) Stat Lab 06/08/20 20:05 Completed URINE MICROSCOPIC (PRATIBHA) Stat Lab 06/08/20 20:05 Completed Acetaminophen Injection [Ofirmev Injection -] Medication 06/08/20 19:53 Discontinued 1,000 mg IVPB ONCE ONE Acetaminophen Injection [Ofirmev Injection -] 100 ml Medication 06/08/20 20:04 Discontinued IVPB UD Fluconazole Medication 06/08/20 21:04 Discontinued 150 mg PO .STK-MED ONE Fluconazole Medication 06/08/20 20:51 Discontinued 150 mg PO ONCE ONE Magnesium Oxide [Mag-Ox -] Medication 06/08/20 21:29 Discontinued 800 mg PO ONCE ONE Potassium Chloride [K-Dur -] Medication 06/08/20 21:27 Discontinued 40 meq PO .STK-MED ONE Potassium Chloride [K-Dur -] Medication 06/08/20 21:24 Discontinued 40 meq PO ONCE ONE Sodium Chloride [Normal Saline -] Medication 06/08/20 19:53 Discontinued 1,000 ml IV ONCE ONE URINE CULTURE Stat Micro 06/08/20 20:14 Received IV Insert NOW Phy Order 06/08/20 19:52 Completed Saline Lock, Insert ONCE Phy Order 06/08/20 20:00 Ordered Medications Discontinued Medications Generic Name Dose Route Start Last Admin Trade Name Freq PRN Reason Stop Dose Admin Acetaminophen 1,000 mg 06/08/20 19:53 06/08/20 20:16 Ofirmev Injection - IVPB 06/08/20 19:54 1,000 mg ONCE ONE Administration Fluconazole 150 mg 06/08/20 20:51 06/08/20 21:07 Fluconazole PO 06/08/20 20:52 150 mg ONCE ONE Administration Fluconazole Confirm 06/08/20 21:04 Fluconazole Administered 06/08/20 21:05 Dose 150 mg PO .STK-MED ONE Acetaminophen Confirm 06/08/20 20:04 Ofirmev Injection - Administered 06/08/20 20:05 Dose 100 mls @ ud IVPB .STK-MED ONE Magnesium Oxide 800 mg 06/08/20 21:29 06/08/20 21:42 Mag-Ox - PO 06/08/20 21:30 800 mg ONCE ONE Administration Potassium Chloride 40 meq 06/08/20 21:24 06/08/20 21:27 K-Dur - PO 06/08/20 21:25 40 meq ONCE ONE Administration Potassium Chloride Confirm 06/08/20 21:27 K-Dur - Administered 06/08/20 21:28 Dose 40 meq PO .STK-MED ONE Sodium Chloride 1,000 ml 06/08/20 19:53 06/08/20 20:15 Normal Saline - IV 06/08/20 19:54 1,000 ml ONCE ONE Administration Lab Results WBC 3.9 K/mm3 (4.0-10.8) L 06/08/20 20:05 RBC 3.46 M/mm3 (3.60-5.2) L 06/08/20 20:05 Hgb 10.9 GM/dl (10.7-15.3) 06/08/20 20:05 Hct 34.7 % (32.4-45.2) 06/08/20 20:05 MCV 100.2 fl (80-96) H 06/08/20 20:05 MCH 31.6 pg (25.7-33.7) 06/08/20 20:05 MCHC 31.5 g/dl (32.0-36.0) L 06/08/20 20:05 RDW 19.5 % (11.6-15.6) H D 06/08/20 20:05 Plt Count 278 K/MM3 (134-434) 06/08/20 20:05 MPV 8.4 fl (7.5-11.1) 06/08/20 20:05 Absolute Neuts (auto) 2.6 K/mm3 06/08/20 20:05 Neutrophils % 62.9 % (42.8-82.8) 06/08/20 20:05 Lymphocytes % 23.8 % (8-40) 06/08/20 20:05 Monocytes % 11.6 % (3.8-10.2) H 06/08/20 20:05 Eosinophils % 1.0 % (0-4.5) 06/08/20 20:05 Basophils % 0.7 % (0-2.0) 06/08/20 20:05 Sodium 133 mmol/L (136-145) L 06/08/20 19:59 Potassium 2.2 mmol/L (3.5-5.1) L* 06/08/20 19:59 Chloride 105 mmol/L (98-107) 06/08/20 19:59 Carbon Dioxide 24 mmol/L (21-32) 06/08/20 19:59 Anion Gap 4 MMOL/L (8-16) L 06/08/20 19:59 BUN 9.0 mg/dl (7-18) 06/08/20 19:59 Creatinine 0.6 mg/dl (0.55-1.3) 06/08/20 19:59 Est GFR (CKD-EPI)AfAm 128.48 06/08/20 19:59 Est GFR (CKD-EPI)NonAf 110.86 06/08/20 19:59 Random Glucose 77 mg/dl (74-106) 06/08/20 19:59 Calcium 8.0 mg/dl (8.5-10) L 06/08/20 19:59 Magnesium 1.3 mg/dL (1.8-2.4) L 06/08/20 19:59 Total Bilirubin 0.4 mg/dl (0.2-1) 06/08/20 19:59 AST 24 U/L (15-37) 06/08/20 19:59 ALT 16 U/L (13-61) 06/08/20 19:59 Alkaline Phosphatase 51 U/L (45-117) D 06/08/20 19:59 Total Protein 5.3 g/dl (6.4-8.2) L 06/08/20 19:59 Albumin 2.8 g/dl (3.4-5.0) L 06/08/20 19:59 Urine Color Yellow 06/08/20 20:05 Urine Appearance Clear 06/08/20 20:05 Urine pH 6.0 (4.5-8) 06/08/20 20:05 Urine Protein 1+ (NEGATIVE) H 06/08/20 20:05 Urine Glucose (UA) Negative (NEGATIVE) 06/08/20 20:05 Urine Ketones Negative (NEGATIVE) 06/08/20 20:05 Urine Blood Negative (NEGATIVE) 06/08/20 20:05 Urine Nitrite Negative (NEGATIVE) 06/08/20 20:05 Urine Bilirubin Negative (NEGATIVE) 06/08/20 20:05 Urine Urobilinogen 0.2 (0.2-1.0) 06/08/20 20:05 Ur Leukocyte Esterase Negative (NEGATIVE) 06/08/20 20:05 Urine RBC 2-5 /hpf (0-4) 06/08/20 20:05 Urine WBC 2-5 (NEGATIVE) 06/08/20 20:05 Ur Transition Epith Cell Few /hpf 06/08/20 20:05 Urine Bacteria Few /hpf (NEGATIVE) 06/08/20 20:05 Blood Type A POSITIVE 06/08/20 20:39 Antibody Screen Negative 06/08/20 20:39 The patient has potassium of 2.2 and Mg of 1.3, very low values. Patient states she is chronically low and has needed to take supplements for this many times. She denies any dizziness, lightheadedness, palpitations, chest pain, tiredness, or any other symptoms of this. We discuss admission and she refuses this, states she is ready to go and wants to manage at home. She will not take IV potassium but is amenable to PO and is given 40 mEq here along with PO Mg, and Rx for K- dur sent to her pharmacy for three more doses. She is counseled on the importance of following up with her PCP PARTHA on Wednesday for repeat K and Mg levels. She will discuss with them a sustainable solution for keeping her potassium levels monitored. States she will do this and understands the importance. This Pt has gotten significant relief of symptoms while in the ED. On last reassessment, vitals are wnl, pain is reasonably controlled, and exam is benign. Workup is not concerning for emergency-level pathology at this time. She agrees with plan for follow up with her primary care provider on first thing on Wednesday. Specific return precautions are discussed and they will come back to the ER if necessary. Discharge - Discharge Information Problems reviewed: Yes Clinical Impression/Diagnosis: LLQ abdominal pain, Vulvovaginal candidiasis, Hypokalemia Ovarian cyst Qualifiers: Laterality: unspecified laterality Qualified Code(s): N83.209 - Unspecified ovarian cyst, unspecified side Condition: Stable Disposition: HOME - Admission No - Additional Discharge Information Prescriptions: Fluconazole 150 mg PO ONCE #1 tablet Potassium Chloride [K-Dur -] 40 meq PO DAILY #6 tablet.er - Follow up/Referral Referrals: Gab Valdes MD [Staff Physician] - Silva Disla MD [Staff Physician] - Donna Ferguson MD [Staff Physician] - - Patient Discharge Instructions Additional Instructions: You were seen in the ER for lower abdominal pain. We did an exam, labs, a pelvic exam, and a CT scan. After our assessment, we do not believe you are having a medical emergency at this time, and we believe you are safe to go home. 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 Please follow up with your regular PCP in 1-3 days. 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 We are giving you the referral information you need, so just call them on Wednesday morning to make an appointment. If you have any new or worsening symptoms, please come back to the ER at any time (24 hours a day). Especially come back for large amounts of rectal bleeding, worsening pain, or worsening fever, vomiting, inability to keep down liquids, dehydration, fainting, or other concerning emergency symptoms. If you are having severe or life threatening symptoms, or symptoms that make it unsafe to drive or have someone drive you, please call 911. You also have significantly low potassium, but you did not want to stay for IV p otassium supplement. We gave you pills in the ER to replace the deficient potassium, and sent a prescription to your pharmacy for the remaining supplements. Please take them exactly as prescribed. You absolutely need to follow up with your primary doctor on Wednesday to have your potassium rechecked an d see if you need more supplements. Please come back immediately if you have any dizziness, loss of consciousness, weakness, or other emergency symptoms. - Post Discharge Activity Work/Back to School Note: Back to Work
[2020-06-08] MEDS ORDERED: ACETAMINOPHEN INJECTION 100 ML IVPB ONE (20:04)
[2020-06-08 20:15] LABS: BASO % 0.7 % (0-2.0); HEMATOCRIT 34.7 % (32.4-45.2); HEMOGLOBIN 10.9 GM/dl (10.7-15.3); LYMPH % 23.8 % (8-40); MCH 31.6 pg (25.7-33.7); MCHC 31.5 g/dl (32.0-36.0); MEAN CELL VOLUME 100.2 fl (80-96); MEAN PLT VOLUME 8.4 fl (7.5-11.1); MONO % 11.6 % (3.8-10.2); NEUT % 62.9 % (42.8-82.8); PLATELET COUNT 278 K/MM3 (134-434); RBC 3.46 M/mm3 (3.60-5.2); RDW 19.5 % (11.6-15.6); WHITE BLOOD COUNT 3.9 K/mm3 (4.0-10.8)
[2020-06-08 20:33] LABS: EPITHELIAL CELLS FEW /hpf
[2020-06-08] MEDS ORDERED: FLUCONAZOLE 150 MG TABLET PO ONE ×2 (20:51→21:04)
[2020-06-08 21:02] LABS: ALBUMIN 2.8 g/dl (3.4-5.0); BILIRUBIN,TOTAL 0.4 mg/dl (0.2-1); CREATININE 0.6 mg/dl (0.55-1.3); MAGNESIUM 1.3 mg/dL (1.8-2.4); TOT PROT 5.3 g/dl (6.4-8.2)
[2020-06-08 21:14] LABS: POTASSIUM 2.2 mmol/L (3.5-5.1)
[2020-06-08] MEDS ORDERED: POTASSIUM CHLORIDE TABS 20 MEQ TABLET.ER (FP) PO ONE ×2 (21:24→21:27)
[2020-06-08] MEDS ORDERED: MAGNESIUM OXIDE 400 MG TABLET (FP) PO ONE (21:29)
== END 2020-06-08 21:44 | disposition home or self-care (01) ==
LOC: FER 19:40
PROC: 3E0337Z Introduction of Electrolytic and Water Balance Substance into Peripheral Vein, Percutaneous Approach (ICD-10-PCS; principal; 2020-06-08)
DX: R10.32 Left lower quadrant pain (principal); B37.3 Candidiasis of vulva and vagina; E87.6 Hypokalemia; N83.209 Unspecified ovarian cyst, unspecified side
CPT/HCPCS: 36415; 74177-TC; 80053; 81003; 81015; 83735; 85025; 86850; 86900; 86901; 87086; 99285-25; J0131; Q9967

== ENCOUNTER 2020-06-11 21:19 | Emergency (ER) | payer BC ==
[2020-06-11] MEDS ORDERED: ONDANSETRON 4 MG/2 ML VIAL IVPUSH ONE (21:44)
[2020-06-11] MEDS ORDERED: FAMOTIDINE 20 MG/50 ML IVPB 20 MG/50 ML MG IVPB ONE ×2 (21:44→21:48)
[2020-06-11] MEDS ORDERED: ACETAMINOPHEN 1000 MG/100 ML VIAL (NON FORMULARY) IVPB ONE (21:45)
[2020-06-11] MEDS ORDERED: ACETAMINOPHEN INJECTION 100 ML IVPB ONE ×2 (21:47→22:20)
[2020-06-11] MEDS ORDERED: ONDANSETRON 4 MG/2 ML VIAL ONE (21:48)
[2020-06-11 21:49] VITALS: BP 140/97; PULSE 92; TEMP 99; BMI 19.3
--- NOTE | 2020-06-11 22:00 | PDOC ---
History of Present Illness - General Chief Complaint: Pain Stated Complaint: "I have Pain in my stomach and vomiting" Time Seen by Provider: 06/11/20 21:30 History Source: Patient Exam Limitations: No Limitations - History of Present Illness Initial Comments: 06/11/20 21:53 [id number] with h/o frequent colitis (seen on 05/22/20 and 05/06/20 most recently), sleeve gastrectomy, s/p abdominoplasty x3, s/p liposuction x2, internal hernia with obstruction repair (January 2019), s/p SBO (Sep 2019), rheumatoid arthritis, GERD, asthma, HTN, depression, anxiety, and panic attacks p/w abdominal pain since previous ED visit now worsening a/w multiple episodes of nbnb vomiting today. Also reports non-bloody diarrhea today, multiple episodes. States she is not tolerating PO at home. Denies cough, CP, SOB. Denies urinary complaints. Reports pain is currently slightly improved from earlier in the day without any ED intervention. DEnies marijuana use. REports drinking etoh yesterday. No other complaints. Past History - Medical History Allergies/Adverse Reactions: Allergies Allergy/AdvReac Type Severity Reaction Status Date / Time shellfish derived Allergy Intermediate Hives Verified 05/22/20 21:40 bupropion HCl Allergy Rash Verified 05/22/20 21:40 [From Wellbutrin] Home Medications: Ambulatory Orders Zolpidem Tartrate [Ambien] 10 mg PO HS 06/04/17 cloNIDine HCL [Catapres -] 0.1 mg PO BID 06/11/17 Clonazepam [Klonopin] 2 mg PO BID 07/20/17 Amlodipine Besylate [Norvasc -] 5 mg PO DAILY 09/23/18 Etanercept [Enbrel] 50 mg SQ WEEKLY 10/28/18 Esomeprazole Magnesium [Nexium 24Hr] 40 mg PO DAILY 03/09/19 Sertraline HCl 100 mg PO HS 07/22/19 Budesonide/Formeterol Fumarate [SYMBICORT 160/4.5mcg -] 1 puff IH BID inhaler 10/31/19 Meclizine HCl [Antivert -] 25 mg PO QID #28 tablet 05/16/20 Ciprofloxacin [Cipro (Restricted To Id)] 500 mg PO Q12H #28 tablet 05/23/20 Ondansetron [Zofran *Odt*] 4 mg SL BID PRN #10 tab 05/23/20 metroNIDAZOLE [Metronidazole] 500 mg PO TID #42 tablet 05/23/20 traMADol HCL [Ultram -] 50 mg PO BID PRN #6 tablet MDD 2 tabs 05/23/20 Fluconazole 150 mg PO ONCE #1 tablet 06/08/20 Potassium Chloride [K-Dur -] 40 meq PO DAILY #6 tablet.er 06/08/20 Anemia: Yes Asthma: Yes (USES INHALERPROAIR) Cancer: No Cardiac Disorders: No CVA: No COPD: No CHF: No Dementia: No Diabetes: No GI Disorders: Yes (COLITIS) Disorders: No HTN: Yes Hypercholesterolemia: No Liver Disease: No Psychiatric Problems: Yes (DEPRESSION, anxiety) Seizures: No Thyroid Disease: No - Surgical History Abdominal Surgery: Yes (VERTICAL SLEEVE GASTRECTOMY 2011, ABDOMINOPLASTY/AND REVISION, LIPO X2,) Appendectomy: No Cardiac Surgery: No Cholecystectomy: No GI Surgery: Yes (GASTRIC BYPASS and gastric sleeve) Lung Surgery: No Neurologic Surgery: No Orthopedic Surgery: Yes (RIGHT KNEE, SHOULDER SX, WRIST SX) - Reproductive History Is Patient Now?: No - Immunization History Td Vaccination: Yes TDAP Vaccination: Yes Immunization Up to Date: Yes - Psycho-Social/Smoking History Smoking Status: No Smoking History: Current every day smoker Years of Tobacco Use: 24 Have you smoked in the past 12 months: Yes Number of Cigarettes Smoked Daily: 15 If you are a former smoker, when did you quit?: 10/14/18 Information on smoking cessation initiated: No 'Breaking Loose' booklet given: 01/02/20 Review of Systems - Review of Systems Able to Perform ROS?: Yes Comments:: 06/11/20 21:56 GENERAL/CONSTITUTIONAL: No fever or chills. No weakness. HEAD, EYES, EARS, NOSE AND THROAT: No change in vision. No ear pain or discharge. No sore throat. CARDIOVASCULAR: No chest pain or shortness of breath. RESPIRATORY: No cough, wheezing, or hemoptysis. GASTROINTESTINAL: + nausea, vomiting, diarrhea. GENITOURINARY: No dysuria, frequency, or change in urination. MUSCULOSKELETAL: No joint or muscle swelling or pain. No neck or back pain. SKIN: No rash. NEUROLOGIC: No headache, vertigo, loss of consciousness, or change in strength/sensation. ENDOCRINE: No increased thirst. No abnormal weight change. HEMATOLOGIC/LYMPHATIC: No anemia, easy bleeding, or history of blood clots. ALLERGIC/IMMUNOLOGIC: No hives or skin allergy. *Physical Exam - Vital Signs Last Vital Signs Temp Pulse Resp BP Pulse Ox 99 F 92 H 18 140/97 100 06/11/20 21:20 06/11/20 21:20 06/11/20 21:20 06/11/20 21:20 06/11/20 21:20 - Physical Exam 06/11/20 21:56 GENERAL: Well appearing, in no acute distress HEENT: NCAT, conjunctiva not injected, MMM, EOMI NECK: Normal ROM, supple LUNGS: CTAB. Good air entry. No wheezes, No Rhonchi and no crackles HEART: RRR, + s1 s2, no murmurs, rubs or gallops ABDOMEN: Soft, +epigastric and LUQ ttp, 1+ voluntary guarding, normoactive bowel sounds. no rebound. No masses BACK: no midline or paraspinal tenderness. No CVA tenderness. EXTREMITIES: Warm and well perfused. No LE edema. FROM. No clubbing or cyano sis. No cords, erythema, or tenderness NEUROLOGICAL: Aox3, Speech fluent, face symmetric, tongue/uvula midline. Sensation grossly intact to light touch. Ambulatory with steady gait. Strength intact. No focal deficits. SKIN: Warm, dry, normal turgor, no rashes or lesions noted. ED Treatment Course - LABORATORY CBC & Chemistry Diagram: 06/11/20 21:50 06/11/20 22:45 Medical Decision Making - Medical Decision Making 06/11/20 21:57 45 yo F multiple medical problems p/w abdominal pain, +epigastric ttp, CT scan from 06/08 with dilated loop of bowel in LUQ seen on previous imaging studies but as per report appears larger in size, possible gastritis vs. colitis vs. gastroenteritis vs. enteritis vs. pancreatitis. Much lower suspicion for diverticulitis or acute choley. Also low suspicion for SBO as patient with diarrhea and passing gas and no SBO seen on CT from 3 days prior. Plan: -labs -pepcid -zofran -tylenol -reassess This clinical encounter is taking place during a federal and state health care emergency attributable to the novel [place] Virus pandemic. The [employer] of the Department of Health and Human Services has declared, pursuant to the Public Health Service Act 319F-3 (42 U.S.C. 247d-6d), that a covered persons activities related to medical countermeasures against COVID-19 will be immune from liability under Federal and State law. 06/11/20 23:45 Labs reviewed. Patient with significant improvement in pain and nausea. Currently tolerating PO. Will d/c with return precautions. Recommend PMD f/u. Discharge - Discharge Information Problems reviewed: Yes Clinical Impression/Diagnosis: Abdominal pain Qualifiers: Abdominal location: epigastric Qualified Code(s): R10.13 - Epigastric pain Condition: Improved Disposition: HOME - Admission No - Follow up/Referral - Patient Discharge Instructions Patient Printed Discharge Instructions: DI for Vomiting -- Adult, DI for Nausea -- Adult Additional Instructions: Your labs did not show any concerning abnormalities. Return to the ED for new or worsening symptoms. You should follow up with your PMD. - Post Discharge Activity Work/Back to School Note: Back to Work
[2020-06-11 22:35] LABS: HEMATOCRIT 37.5 % (32.4-45.2); HEMOGLOBIN 12.4 GM/dl (10.7-15.3); MCH 32.2 pg (25.7-33.7); MEAN CELL VOLUME 97.7 fl (80-96); MEAN PLT VOLUME 8.6 fl (7.5-11.1); PLATELET COUNT 362 K/MM3 (134-434); RBC 3.84 M/mm3 (3.60-5.2); RDW 19.1 % (11.6-15.6); WHITE BLOOD COUNT 4.3 K/mm3 (4.0-10.8)
[2020-06-11 23:07] LABS: ANISOCYTOSIS 2+; MACROCYTOSIS 1+; PLATELET ESTIMATE ADEQUATE
[2020-06-11 23:37] LABS: ALBUMIN 3.1 g/dl (3.4-5.0); BILIRUBIN,TOTAL 0.5 mg/dl (0.2-1); CALCIUM 7.8 mg/dl (8.5-10); CREATININE 0.5 mg/dl (0.55-1.3); POTASSIUM 3.8 mmol/L (3.5-5.1); TOT PROT 5.9 g/dl (6.4-8.2)
== END 2020-06-12 00:06 | disposition home or self-care (01) ==
LOC: FER 21:19
PROC: 3E0333Z Introduction of Anti-inflammatory into Peripheral Vein, Percutaneous Approach (ICD-10-PCS; principal; 2020-06-11)
PROC: 3E033GC Introduction of Other Therapeutic Substance into Peripheral Vein, Percutaneous Approach (ICD-10-PCS; 2020-06-11)
DX: R10.13 Epigastric pain (principal)
CPT/HCPCS: 36415; 80053; 83690; 84703; 85025; 99284-25; J0131

== ENCOUNTER 2020-06-16 15:51 | Emergency (ER) | payer BC ==
[2020-06-16 16:09] VITALS: BP 143/97; PULSE 105; TEMP 98.6; BMI 19.3
[2020-06-16] MEDS ORDERED: ONDANSETRON *ODT* 4 MG TABLET SL ONE (16:28)
--- NOTE | 2020-06-16 16:28 | PDOC ---
History of Present Illness - General Chief Complaint: Injury Stated Complaint: REQUESTING A HEAD CT Time Seen by Provider: 06/16/20 15:54 History Source: Patient Exam Limitations: No Limitations - History of Present Illness Initial Comments: 06/16/20 16:24 45-year-old female history of gastric bypass surgery here today complaining of a head injury. Patient states she was at work yesterday she bent over and hit her head on the eyewash machine has had significant pain in her head since then denies any LOC has had nausea and vomiting today associated with her pain. Patient [facility] went to [facility] and was subsequently sent to the ED here for imaging. Denies any focal weakness in edition Per chart review patient has been seen multiple times for prior episodes of nausea vomiting and has had recent work-up including a CT abdomen pelvis on of this year in addition to a small bowel series and multiple visits for nausea vomiting abdominal pain Past History - Medical History Allergies/Adverse Reactions: Allergies Allergy/AdvReac Type Severity Reaction Status Date / Time shellfish derived Allergy Intermediate Hives Verified 05/22/20 21:40 bupropion HCl Allergy Rash Verified 05/22/20 21:40 [From Wellbutrin] Home Medications: Ambulatory Orders Zolpidem Tartrate [Ambien] 10 mg PO HS 06/04/17 cloNIDine HCL [Catapres -] 0.1 mg PO BID 06/11/17 Clonazepam [Klonopin] 2 mg PO BID 07/20/17 Amlodipine Besylate [Norvasc -] 5 mg PO DAILY 09/23/18 Etanercept [Enbrel] 50 mg SQ WEEKLY 10/28/18 Esomeprazole Magnesium [Nexium 24Hr] 40 mg PO DAILY 03/09/19 Sertraline HCl 100 mg PO HS 07/22/19 Budesonide/Formeterol Fumarate [SYMBICORT 160/4.5mcg -] 1 puff IH BID inhaler 10/31/19 Meclizine HCl [Antivert -] 25 mg PO QID #28 tablet 05/16/20 Ciprofloxacin [Cipro (Restricted To Id)] 500 mg PO Q12H #28 tablet 05/23/20 Ondansetron [Zofran *Odt*] 4 mg SL BID PRN #10 tab 05/23/20 metroNIDAZOLE [Metronidazole] 500 mg PO TID #42 tablet 05/23/20 traMADol HCL [Ultram -] 50 mg PO BID PRN #6 tablet MDD 2 tabs 05/23/20 Fluconazole 150 mg PO ONCE #1 tablet 06/08/20 Potassium Chloride [K-Dur -] 40 meq PO DAILY #6 tablet.er 06/08/20 Anemia: Yes Asthma: Yes (USES INHALER PROAIR) Cancer: No Cardiac Disorders: No CVA: No COPD: No CHF: No Dementia: No Diabetes: No GI Disorders: Yes (COLITIS) Disorders: No HTN: Yes Hypercholesterolemia: No Liver Disease: No Psychiatric Problems: Yes (DEPRESSION, anxiety) Seizures: No Thyroid Disease: No - Surgical History Abdominal Surgery: Yes (VERTICAL SLEEVE GASTRECTOMY 2012, ABDOMINOPLASTY/AND REVISION, LIPO X2,) Appendectomy: No Cardiac Surgery: No Cholecystectomy: No GI Surgery: Yes (GASTRIC BYPASS and gastric sleeve) Lung Surgery: No Neurologic Surgery: No Orthopedic Surgery: Yes (RIGHT KNEE, SHOULDER SX, WRIST SX) - Reproductive History Is Patient Now?: No - Immunization History Td Vaccination: Yes TDAP Vaccination: Yes Immunization Up to Date: Yes - Psycho-Social/Smoking History Smoking Status: No Smoking History: Current every day smoker Years of Tobacco Use: 24 Have you smoked in the past 12 months: Yes Number of Cigarettes Smoked Daily: 15 If you are a former smoker, when did you quit?: 10/14/18 Information on smoking cessation initiated: Yes 'Breaking Loose' booklet given: 01/02/20 - Substance Abuse Hx (Audit-C & DAST Scrn) How often the patient has a drink containing alcohol: 4 0r more times/wk Number of drinks the patient has on a typical day: 3 or 4 How often the patient has six or more drinks on one occasion: Weekly Score: In Men: 4 or > Positive; In Women: 3 or > Positive: 8 Screen Result (Pos requires Nsg. Audit-10AR): Positive In the last yr the pt used illegal drug/Rx for NonMed reason: No Score: Yes response is considered Positive: 0 Screen Result (Positive result requires Nsg. DAST-10): Negative Review of Systems - Review of Systems Constitutional: No: Chills, Fever HEENTM: No: Eye Pain Respiratory: No: Cough, Orthopnea, Shortness of Breath Cardiac (ROS): No: Chest Pain, Edema ABD/GI: Yes: Nausea, Vomiting : No: Burning, Dysuria, Discharge Musculoskeletal: No: Joint Pain, Muscle Pain Neurological: Yes: Headache All Other Systems: Reviewed and Negative *Physical Exam - Vital Signs Last Vital Signs Temp Pulse Resp BP Pulse Ox 98.6 F 105 H 18 143/97 100 06/16/20 15:52 06/16/20 15:52 06/16/20 15:52 06/16/20 15:52 06/16/20 15:52 - Physical Exam 06/16/20 16:25 Patient is awake alert no acute distress head is atraumatic there is no noted ecchymosis or laceration over the anterior face. No midline cervical spinal tenderness lungs are clear bilaterally heart is regular murmurs rubs or gallops abdomen is soft nontender extremities are warm well perfused neurologically patient has a GCS of 15 A&O x3 ED Treatment Course - RADIOLOGY Radiology Studies Ordered: Category Date Time Status HEAD CT WITHOUT CONTRAST [CT] Stat CT Scan 06/16/20 15:54 Ordered Medical Decision Making - Medical Decision Making 06/16/20 16:26 45-year-old female history of gastric bypass here today status post head injury yesterday complaining of a headache and nausea and vomiting plan CT head without contrast. We will treat her nausea with sublingual Zofran 06/16/20 16:42 pt has had 9 ct a/p since beginning of the year. all showing gastric bypass otherwise unremarkable. pt ws seen with hand down throat trying to induce vomiting following eating dominos pizza.. ct head obtained. awaiting read. 06/16/20 17:31 ct head negative. pt would like to be discharged. Discharge - Discharge Information Problems reviewed: Yes Clinical Impression/Diagnosis: Head injury Condition: Good Disposition: HOME - Admission No - Follow up/Referral Referrals: Gab Valdes MD [Staff Physician] - - Patient Discharge Instructions Patient Printed Discharge Instructions: DI for Closed Head Injury Additional Instructions: you should follow up with you primary doctor. return for any problems or concerns. your head ct is unremarkable. return for any problems or concerns. - Post Discharge Activity
[2020-06-16] MEDS ORDERED: ONDANSETRON *ODT* 4 MG TABLET ONE (16:37)
== END 2020-06-16 17:39 | disposition home or self-care (01) ==
LOC: FER 15:51
DX: S09.90XA Unspecified injury of head, initial encounter (principal)
CPT/HCPCS: 70450-TC; 99284-25; Q0162

== ENCOUNTER 2020-06-16 18:18 | Emergency (ER) | payer BC ==
[2020-06-16 18:42] VITALS: TEMP 97.8; BMI 19.3
--- NOTE | 2020-06-16 19:04 | PDOC ---
History of Present Illness - General Chief Complaint: Pain Stated Complaint: ABD PAIN Time Seen by Provider: 06/16/20 19:03 Past History - Medical History Allergies/Adverse Reactions: Allergies Allergy/AdvReac Type Severity Reaction Status Date / Time shellfish derived Allergy Intermediate Hives Verified 05/22/20 21:40 bupropion HCl Allergy Rash Verified 05/22/20 21:40 [From Wellbutrin] Home Medications: Ambulatory Orders Zolpidem Tartrate [Ambien] 10 mg PO HS 06/04/17 cloNIDine HCL [Catapres -] 0.1 mg PO BID 06/11/17 Clonazepam [Klonopin] 2 mg PO BID 07/20/17 Amlodipine Besylate [Norvasc -] 5 mg PO DAILY 09/23/18 Etanercept [Enbrel] 50 mg SQ WEEKLY 10/28/18 Esomeprazole Magnesium [Nexium 24Hr] 40 mg PO DAILY 03/09/19 Sertraline HCl 100 mg PO HS 07/22/19 Budesonide/Formeterol Fumarate [SYMBICORT 160/4.5mcg -] 1 puff IH BID inhaler 10/31/19 Meclizine HCl [Antivert -] 25 mg PO QID #28 tablet 05/16/20 Ciprofloxacin [Cipro (Restricted To Id)] 500 mg PO Q12H #28 tablet 05/23/20 Ondansetron [Zofran *Odt*] 4 mg SL BID PRN #10 tab 05/23/20 metroNIDAZOLE [Metronidazole] 500 mg PO TID #42 tablet 05/23/20 traMADol HCL [Ultram -] 50 mg PO BID PRN #6 tablet MDD 2 tabs 05/23/20 Fluconazole 150 mg PO ONCE #1 tablet 06/08/20 Potassium Chloride [K-Dur -] 40 meq PO DAILY #6 tablet.er 06/08/20 Anemia: Yes Asthma: Yes (USES INHALER PROAIR) Cancer: No Cardiac Disorders: No CVA: No COPD: No CHF: No Dementia: No Diabetes: No GI Disorders: Yes (COLITIS) Disorders: No HTN: Yes Hypercholesterolemia: No Liver Disease: No Psychiatric Problems: Yes (DEPRESSION, anxiety) Seizures: No Thyroid Disease: No - Surgical History Abdominal Surgery: Yes (VERTICAL SLEEVE GASTRECTOMY 2012, ABDOMINOPLASTY/AND REVISION, LIPO X2,) Appendectomy: No Cardiac Surgery: No Cholecystectomy: No GI Surgery: Yes (GASTRIC BYPASS and gastric sleeve) Lung Surgery: No Neurologic Surgery: No Orthopedic Surgery: Yes (RIGHT KNEE, SHOULDER SX, WRIST SX) - Reproductive History Is Patient Now?: No - Immunization History Td Vaccination: Yes TDAP Vaccination: Yes Immunization Up to Date: Yes - Psycho-Social/Smoking History Smoking Status: No Smoking History: Current every day smoker Years of Tobacco Use: 24 Have you smoked in the past 12 months: Yes Number of Cigarettes Smoked Daily: 15 If you are a former smoker, when did you quit?: 10/14/18 Information on smoking cessation initiated: Yes 'Breaking Loose' booklet given: 01/02/20 - Substance Abuse Hx (Audit-C & DAST Scrn) How often the patient has a drink containing alcohol: Monthly or less Score: In Men: 4 or > Positive; In Women: 3 or > Positive: 1 Screen Result (Pos requires Nsg. Audit-10AR): Negative *Physical Exam - Vital Signs Last Vital Signs Temp Pulse Resp BP Pulse Ox 97.8 F 96 H 20 150/99 97 06/16/20 18:38 06/16/20 18:38 06/16/20 18:38 06/16/20 18:38 06/16/20 18:38 Discharge - Follow up/Referral Referrals: Zane Mckoy MD [Primary Care Provider] - - Patient Discharge Instructions - Post Discharge Activity
[2020-06-16] MEDS ORDERED: MAG HYDROX/AL HYDROX/SIMETH -MYLANTA- ORAL SUSPENSION PO ONE (21:24)
[2020-06-16] MEDS ORDERED: FAMOTIDINE 20 MG/50 ML IVPB 20 MG/50 ML MG IVPB ONE ×2 (21:24→21:35)
[2020-06-16] MEDS ORDERED: ACETAMINOPHEN 1000 MG/100 ML VIAL (NON FORMULARY) IVPB ONE (21:24)
[2020-06-16] MEDS ORDERED: ONDANSETRON 4 MG/2 ML VIAL IVPUSH ONE (21:24)
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
[2020-06-16] MEDS ORDERED: MAG HYDROX/AL HYDROX/SIMETH 30 ML UNIT-DOSE CUP ONE (21:34)
[2020-06-16] MEDS ORDERED: ACETAMINOPHEN INJECTION 100 ML IVPB ONE (21:34)
[2020-06-16] MEDS ORDERED: SODIUM CHLORIDE 0.9% 500 ML INFUS.BAG IV ONE (21:35)
[2020-06-16 22:27] LABS: BASO % 0.8 % (0-2.0); EOS % 0.6 % (0-4.5); HEMATOCRIT 34.8 % (32.4-45.2); HEMOGLOBIN 11.6 GM/dL (10.7-15.3); LYMPH % 24.9 % (8-40); MCH 32.4 pg (25.7-33.7); MCHC 33.4 g/dl (32.0-36.0); MEAN CELL VOLUME 96.9 fl (80-96); MEAN PLT VOLUME 8.9 fl (7.5-11.1); MONO % 10.9 % (3.8-10.2); NEUT % 62.8 % (42.8-82.8); PLATELET COUNT 271 K/MM3 (134-434); RBC 3.59 M/mm3 (3.60-5.2); RDW 18.9 % (11.6-15.6); WHITE BLOOD COUNT 4.9 K/mm3 (4.0-10.0)
[2020-06-16 22:28] LABS: URINE APPEARANCE CLEAR; URINE BILIRUBIN NEGATIVE (NEGATIVE); URINE COLOR YELLOW; URINE GLUCOSE (UA) NEGATIVE (NEGATIVE); URINE KETONE TRACE (NEGATIVE); URINE LEUK ESTERASE NEGATIVE (NEGATIVE); URINE NITRITE NEGATIVE (NEGATIVE); URINE PROTEIN NEGATIVE (NEGATIVE); URINE UROBILINOGEN 0.2 mg/dL (0.2-1.0)
[2020-06-16 22:54] LABS: ALBUMIN 3.4 g/dl (3.4-5.0); BILIRUBIN,TOTAL 0.3 mg/dL (0.2-1); BLOOD UREA NITROGEN 7.6 mg/dL (7-18); CALCIUM 8.6 mg/dL (8.5-10.1); CREATININE 0.8 mg/dL (0.55-1.3); MAGNESIUM 1.9 mg/dL (1.8-2.4); POTASSIUM 3.8 mmol/L (3.5-5.1)
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
[2020-06-17 04:03] VITALS: BP 134/76; PULSE 90
== END 2020-06-17 04:02 | disposition home or self-care (01) ==
LOC: JER 18:18
PROC: 3E0333Z Introduction of Anti-inflammatory into Peripheral Vein, Percutaneous Approach (ICD-10-PCS; principal; 2020-06-16)
PROC: 3E033GC Introduction of Other Therapeutic Substance into Peripheral Vein, Percutaneous Approach (ICD-10-PCS; 2020-06-16)
DX: R11.2 Nausea with vomiting, unspecified (principal)
CPT/HCPCS: 36415; 74018-TC-FY; 74019-TC-FY; 74177-TC; 80053; 81003; 83605; 83690; 83735; 84703; 85025; 87086; 99285-25; J0131

== ENCOUNTER 2020-06-19 11:57 | Emergency (ER) | payer BC ==
[2020-06-19 12:07] VITALS: BP 107/75; PULSE 100; TEMP 98; BMI 18.6
--- NOTE | 2020-06-19 12:25 | PDOC ---
History of Present Illness - General Chief Complaint: Vomiting Blood Stated Complaint: P/S SHE VOMITED BLOOD Time Seen by Provider: 06/19/20 12:14 - History of Present Illness Initial Comments: 06/19/20 14:59 Chief complaint: Vomiting blood HPI: Patient has a long history of gastritis/peptic ulcer disease. She is also had multiple bariatric procedures including gastric bypass and banding. She periodically has food intolerance and vomiting. This morning she had several episodes of retching, expectorating fluid which look like saliva mixed with bright red blood. This occurred after "eating something that she should not have eaten", though she would not specify. Review of systems: No abdominal pain, nausea vomiting or diarrhea at present. No chest pain, shortness of breath, visual or focal neurologic symptoms, unst eadiness of gait. No fever/chills, URI symptoms, sore throat, cough. No vaginal bleeding or discharge. No urinary tract symptoms Past medical history: Multiple bariatric procedures as described above including gastric bypass revision several months ago by Dr. Peterson. Matured arthritis maintained on [employer]. GERD. High blood pressure. Anxiety. COPD. Recurrent abdominal pain. Hypokalemia. Suspected drug abuse. Possible HIV exposure Social/family history: Under the care of Dr. Larios, who is a spaghetti for HIV exposure in managing her chronic abdominal pain. Dr. Valdes, gastroen terologist, is involved in treating her chronic abdominal pain. Otherwise noncontributory Physical exam: Alert and oriented, no acute distress, cooperative. Denies abdominal pain at present. Denies persistent nausea Afebrile, vital signs normal including regular heart rate 100/min. No pallor or icterus. HEENT normal Neck supple without bruit mass or nodes Lungs clear, full breath sounds bilaterally, no wheezes rales or rhonchi CV S1-S2 normal without murmur rub or gallop pulses full and symmetric no JVD or edema no bruits 100 and regular Abdomen soft nontender without mass organomegaly. Bowel sounds normal. Nondistended. Extremities no CCE Skin clear, no rash, adequate turgor and wet mucous membranes Neurological intact Impression: Chronic abdominal pain, periodic nausea and vomiting thought secondary to multiple bariatric procedures. Evaluated 2 days ago in this ER, had normal abdominal/pelvic CT chronic hypokalemia, has been noncompliant with her potassium at home. Also noncompliant with her proton pump inhibitor. Refuses admission or intravenous therapy for potassium replenishment as in the past. Plan: Symptoms appear controlled now. H&H is stable, and stool guaiac is negative. Resume proton pump inhibitor, potassium replacement orally, and recommend against dietary indiscretion. Follow-up with primary physician Dr. Larios and montessori paraprofessional Dr. Valdes as directed. Return to ER if symptoms worsen. Fully ambulatory and in no distress at discharge. Past History - Medical History Allergies/Adverse Reactions: Allergies Allergy/AdvReac Type Severity Reaction Status Date / Time shellfish derived Allergy Intermediate Hives Verified 05/22/20 21:40 bupropion HCl Allergy Rash Verified 05/22/20 21:40 [From Wellbutrin] Home Medications: Ambulatory Orders Zolpidem Tartrate [Ambien] 10 mg PO HS 06/04/17 cloNIDine HCL [Catapres -] 0.1 mg PO BID 06/11/17 Clonazepam [Klonopin] 2 mg PO BID 07/20/17 Amlodipine Besylate [Norvasc -] 5 mg PO DAILY 09/23/18 Etanercept [Enbrel] 50 mg SQ WEEKLY 10/28/18 Esomeprazole Magnesium [Nexium 24Hr] 40 mg PO DAILY 03/09/19 Sertraline HCl 100 mg PO HS 07/22/19 Budesonide/Formeterol Fumarate [SYMBICORT 160/4.5mcg -] 1 puff IH BID inhaler 10/31/19 Meclizine HCl [Antivert -] 25 mg PO QID #28 tablet 05/16/20 Ciprofloxacin [Cipro (Restricted To Id)] 500 mg PO Q12H #28 tablet 05/23/20 Ondansetron [Zofran *Odt*] 4 mg SL BID PRN #10 tab 05/23/20 metroNIDAZOLE [Metronidazole] 500 mg PO TID #42 tablet 05/23/20 traMADol HCL [Ultram -] 50 mg PO BID PRN #6 tablet MDD 2 tabs 05/23/20 Fluconazole 150 mg PO ONCE #1 tablet 06/08/20 Potassium Chloride [K-Dur -] 40 meq PO DAILY #6 tablet.er 06/08/20 Anemia: Yes Asthma: Yes (USES INHALER PROAIR) Cancer: No Cardiac Disorders: No CVA: No COPD: No CHF: No Dementia: No Diabetes: No GI Disorders: Yes (COLITIS) Disorders: No HTN: Yes Hypercholesterolemia: No Liver Disease: No Psychiatric Problems: Yes (DEPRESSION, anxiety) Seizures: No Thyroid Disease: No - Surgical History Abdominal Surgery: Yes (VERTICAL SLEEVE GASTRECTOMY 2012, ABDOMINOPLASTY/AND REVISION, LIPO X2,) Appendectomy: No Cardiac Surgery: No Cholecystectomy: No GI Surgery: Yes (GASTRIC BYPASS and gastric sleeve) Lung Surgery: No Neurologic Surgery: No Orthopedic Surgery: Yes (RIGHT KNEE, SHOULDER SX, WRIST SX) - Reproductive History Is Patient Now?: No - Immunization History Td Vaccination: Yes TDAP Vaccination: Yes Immunization Up to Date: Yes - Psycho-Social/Smoking History Smoking Status: No Smoking History: Current every day smoker Years of Tobacco Use: 24 Have you smoked in the past 12 months: Yes Number of Cigarettes Smoked Daily: 15 If you are a former smoker, when did you quit?: 10/14/18 Information on smoking cessation initiated: Yes 'Breaking Loose' booklet given: 01/02/20 - Substance Abuse Hx (Audit-C & DAST Scrn) How often the patient has a drink containing alcohol: 2-3 times / week Number of drinks the patient has on a typical day: 1 or 2 Score: In Men: 4 or > Positive; In Women: 3 or > Positive: 3 Screen Result (Pos requires Nsg. Audit-10AR): Positive In the last yr the pt used illegal drug/Rx for NonMed reason: No Score: Yes response is considered Positive: 0 Screen Result (Positive result requires Nsg. DAST-10): Negative *Physical Exam - Vital Signs Last Vital Signs Temp Pulse Resp BP Pulse Ox 98 F 100 H 100 H 107/75 16 L 06/19/20 11:58 06/19/20 11:58 06/19/20 11:58 06/19/20 12:15 06/19/20 11:58 ED Treatment Course - LABORATORY CBC & Chemistry Diagram: 06/19/20 12:26 06/19/20 12:26 Medical Decision Making - Medical Decision Making 06/19/20 15:11 Labs normal except for potassium of 2.6. Potassium has been low in the past, 2.2 on June 08. At that time, she refused IV replacement and admission. She has had no known cardiac arrhythmias or cardiac symptoms in the past or presently. Discharge - Discharge Information Problems reviewed: Yes Clinical Impression/Diagnosis: Hypokalemia Gastritis Qualifiers: Gastritis type: unspecified gastritis Chronicity: chronic Gastritis bleeding: presence of bleeding unspecified Qualified Code(s): K29.50 - Unspecified chronic gastritis without bleeding Condition: Improved Disposition: HOME - Admission No - Follow up/Referral Referrals: Zane Mckoy MD [Primary Care Provider] - 24 hours - Patient Discharge Instructions Patient Printed Discharge Instructions: DI for Gastritis, DI for Hypokalemia Additional Instructions: Clear liquids and soft diet 24 to 48 hours Potassium as directed 3 times daily. 1 dose was given here, 2 more doses must be taken today. After that, 3 times daily. See primary physician and montessori paraprofessional as directed as soon as possible, it is recommended to recheck the potassium in 24 hours. - Post Discharge Activity
[2020-06-19 12:37] LABS: BASO % 4.4 % (0-2.0); EOS % 0.8 % (0-4.5); HEMATOCRIT 36.3 % (32.4-45.2); HEMOGLOBIN 11.8 GM/dl (10.7-15.3); LYMPH % 17.5 % (8-40); MCH 32.4 pg (25.7-33.7); MCHC 32.5 g/dl (32.0-36.0); MEAN CELL VOLUME 99.6 fl (80-96); MEAN PLT VOLUME 9.2 fl (7.5-11.1); MONO % 10.3 % (3.8-10.2); PLATELET COUNT 294 K/MM3 (134-434); RBC 3.64 M/mm3 (3.60-5.2); RDW 17.6 % (11.6-15.6); WHITE BLOOD COUNT 5.3 K/mm3 (4.0-10.8)
[2020-06-19 12:46] LABS: ALBUMIN 3.5 g/dl (3.4-5.0); BILIRUBIN,TOTAL 0.5 mg/dl (0.2-1); CALCIUM 8.5 mg/dl (8.5-10); CREATININE 1.4 mg/dl (0.55-1.3); POTASSIUM 2.6 mmol/L (3.5-5.1); TOT PROT 6.9 g/dl (6.4-8.2)
[2020-06-19] MEDS ORDERED: POTASSIUM CHLORIDE ORAL LIQUID 20 MEQ/15 ML PO ONE (13:03)
[2020-06-19] MEDS ORDERED: POTASSIUM CHLORIDE ORAL LIQUID 20 MEQ/15 ML ONE (13:07)
[2020-06-19] MEDS ORDERED: PANTOPRAZOLE 40 MG TABLET ONE (13:50)
[2020-06-19] MEDS ORDERED: PANTOPRAZOLE 40 MG TABLET PO ONE (13:53)
== END 2020-06-19 14:09 | disposition home or self-care (01) ==
LOC: FER 11:57
DX: E87.6 Hypokalemia (principal); K29.50 Unspecified chronic gastritis without bleeding
CPT/HCPCS: 36415; 80053; 82272; 85025; 99284-25

== ENCOUNTER 2020-06-21 21:15 | Emergency (ER) | payer BC ==
[2020-06-21 21:24] VITALS: BMI 18.3
[2020-06-21] MEDS ORDERED: SODIUM CHLORIDE 1,000 ML IV ONE (21:37)
[2020-06-21] MEDS ORDERED: ONDANSETRON 4 MG/2 ML VIAL IVPB ONE (21:37)
[2020-06-21] MEDS ORDERED: FAMOTIDINE 20 MG/50 ML IVPB 20 MG/50 ML MG IVPB ONE ×2 (21:37→22:02)
--- NOTE | 2020-06-21 21:38 | PDOC ---
History of Present Illness - General Chief Complaint: Chest Pain Stated Complaint: HEMATEMESIS AND CHEST PAIN Time Seen by Provider: 06/21/20 21:36 History Source: Patient Exam Limitations: No Limitations - History of Present Illness Initial Comments: 06/21/20 22:32 This is a 45-year-old female with a long history of multiple medical complaints and frequent visits to the ED. Patient comes in complaining of nausea and vomiting as well as chest pain. Patient was here for similar similar complaints ago and 3 days ago. Patient was noted to have a low potassium on the prior v isit otherwise work-up was unremarkable. Patient now returns with similar complaints of prior visit. Patient said she is vomiting but however when I look at the vomitus it is a few flecks of blood in mostly mucus. There is no coffee grounds significant amount of blood. Allergies: as per nursing notes Past Medical History: As per HPI Social history: Lives with family. No smoking. No alcohol. No illicit drugs. Surgical history: None General: No fevers or chills, no weakness, no weight loss HEENT: No change in vision. No sore throat,. No ear pain CardioVascular: no chest discomfort. No shortness of breath Respiratory:No cough, or wheezing. Gastrointestinal: no nausea, vomiting, diarrhea or constipation, No rectal bleeding Genitourinary: No dysuria, hematuria, or frequency Musculoskeletal: No joint or muscle pain or swelling Neurologic: No headache, vertigo, dizziness or loss of consciousness Psychiatric: nor depression Skin: No rashes or easy bruising Endocrine: no increased thirst or abnormal weight change Allergic: no skin or latex allergy All other systems reviewed and normal Exam: General: Well-nourished well-developed individual, no acute distress HEENT: Throat: Normal, tonsils normal, no erythema or exudate Neck: Supple, no meningeal signs, no lymphadenopathy Eyes::Pupils equal reactive and round, extraocular motion intact Chest: Nontender to palpation Cardiac: S1-S2 normal, regular rate and rhythm, no murmurs rubs or gallops Respiratory: Lungs clear to auscultation bilateral Abdomen: Soft, nondistended, normal bowel sounds, there is no tenderness on palpation diffusely Extremities: Warm, dry, no cyanosis, clubbing, or edema Skin: No rashes Neuro: Alert and oriented x3, CN II - XII intact, nonfocal exam with normal strength, normal sensation, normal reflexes, normal gait, Psych: Normal mood and affect 06/21/20 22:35 Assessment and plan: This a 45-year-old female with nausea vomiting and chest pain. Patient had a EKG that was poor quality but otherwise no acute ST-T wave changes. Chest x-ray x-ray was negative for any acute pathology. Patient's potassium is a little low however not as bad as when she was here last time. Patient potassium was 3.2 I will give her 20 mg once of K. Dur patient does have potassium at home Patient instructed to follow-up with her primary care doctor Past History - Medical History Allergies/Adverse Reactions: Allergies Allergy/AdvReac Type Severity Reaction Status Date / Time shellfish derived Allergy Intermediate Hives Verified 06/21/20 21:19 bupropion HCl Allergy Rash Verified 06/21/20 21:19 [From Wellbutrin] Home Medications: Ambulatory Orders Zolpidem Tartrate [Ambien] 10 mg PO HS 06/04/17 cloNIDine HCL [Catapres -] 0.1 mg PO BID 06/11/17 Clonazepam [Klonopin] 2 mg PO BID 07/20/17 Amlodipine Besylate [Norvasc -] 5 mg PO DAILY 09/23/18 Etanercept [Enbrel] 50 mg SQ WEEKLY 10/28/18 Esomeprazole Magnesium [Nexium 24Hr] 40 mg PO DAILY 03/09/19 Sertraline HCl 100 mg PO HS 07/22/19 Budesonide/Formeterol Fumarate [SYMBICORT 160/4.5mcg -] 1 puff IH BID inhaler 0 10/31/19 Meclizine HCl [Antivert -] 25 mg PO QID #28 tablet 05/16/20 Ciprofloxacin [Cipro (Restricted To Id)] 500 mg PO Q12H #28 tablet 05/23/20 Ondansetron [Zofran *Odt*] 4 mg SL BID PRN #10 tab 05/23/20 metroNIDAZOLE [Metronidazole] 500 mg PO TID #42 tablet 05/23/20 traMADol HCL [Ultram -] 50 mg PO BID PRN #6 tablet MDD 2 tabs 05/23/20 Fluconazole 150 mg PO ONCE #1 tablet 06/08/20 Potassium Chloride [K-Dur -] 40 meq PO DAILY #6 tablet.er 06/08/20 Ondansetron [Zofran *Odt*] 8 mg SL TID #12 od.tablet 06/21/20 Anemia: Yes Asthma: Yes (USES INHALER PROAIR) Cancer: No Cardiac Disorders: No CVA: No COPD: No CHF: No Dementia: No Diabetes: No GI Disorders: Yes (COLITIS) Disorders: No HTN: Yes Hypercholesterolemia: No Liver Disease: No Psychiatric Problems: Yes (DEPRESSION, anxiety) Seizures: No Thyroid Disease: No - Surgical History Abdominal Surgery: Yes (VERTICAL SLEEVE GASTRECTOMY 2012, ABDOMINOPLASTY/AND REVISION, LIPO X2,) Appendectomy: No Cardiac Surgery: No Cholecystectomy: No GI Surgery: Yes (GASTRIC BYPASS and gastric sleeve) Lung Surgery: No Neurologic Surgery: No Orthopedic Surgery: Yes (RIGHT KNEE, SHOULDER SX, WRIST SX) - Reproductive History Is Patient Now?: No - Immunization History Td Vaccination: Yes TDAP Vaccination: Yes Immunization Up to Date: Yes - Psycho-Social/Smoking History Smoking Status: No Smoking History: Current every day smoker Years of Tobacco Use: 24 Have you smoked in the past 12 months: Yes Number of Cigarettes Smoked Daily: 15 If you are a former smoker, when did you quit?: 10/14/18 Information on smoking cessation initiated: Yes 'Breaking Loose' booklet given: 01/02/20 - Substance Abuse Hx (Audit-C & DAST Scrn) How often the patient has a drink containing alcohol: Never Score: In Men: 4 or > Positive; In Women: 3 or > Positive: 0 Screen Result (Pos requires Nsg. Audit-10AR): Negative In the last yr the pt used illegal drug/Rx for NonMed reason: No Score: Yes response is considered Positive: 0 Screen Result (Positive result requires Nsg. DAST-10): Negative *Physical Exam - Vital Signs Last Vital Signs Temp Pulse Resp BP Pulse Ox 98.1 F 52 L 20 157/111 H 100 06/21/20 21:20 06/21/20 21:20 06/21/20 21:20 06/21/20 21:20 06/21/20 21:20 ED Treatment Course - LABORATORY CBC & Chemistry Diagram: 06/21/20 22:00 06/21/20 22:00 Discharge - Discharge Information Problems reviewed: Yes Clinical Impression/Diagnosis: Nausea and vomiting Qualifiers: Vomiting type: unspecified Vomiting Intractability: non-intractable Qualified Code(s): R11.2 - Nausea with vomiting, unspecified Condition: Good Disposition: HOME - Admission No - Follow up/Referral - Patient Discharge Instructions Additional Instructions: Take Zofran 1 tablet as often as 3 times a day as needed for nausea and vomiting. Return to the emergency department immediately with ANY new, persistent or worsening symptoms. Continue any medications as previously prescribed by your physician. You should follow up with your primary doctor as soon as possible regarding today's emergency department visit. . Please make sure your doctor reviews the results of your emergency evaluation. Thank you for coming to the Emergency Department today for your care. It was a pleasure to see you today. Please note that your evaluation is INCOMPLETE until you follow-up with your doctor. - Post Discharge Activity
[2020-06-21] MEDS ORDERED: ONDANSETRON 4 MG/2 ML VIAL ONE (22:02)
[2020-06-21] MEDS ORDERED: ACETAMINOPHEN INJECTION 100 ML IVPB ONE (22:07)
[2020-06-21] MEDS ORDERED: ACETAMINOPHEN 1000 MG/100 ML VIAL (NON FORMULARY) IVPB ONE (22:07)
[2020-06-21 22:16] LABS: HEMOGLOBIN 12.9 GM/dl (10.7-15.3); MCH 32.6 pg (25.7-33.7); MCHC 33.1 g/dl (32.0-36.0); MEAN CELL VOLUME 98.2 fl (80-96); MEAN PLT VOLUME 9.4 fl (7.5-11.1); PLATELET COUNT 339 K/MM3 (134-434); RBC 3.97 M/mm3 (3.60-5.2); RDW 17.8 % (11.6-15.6); WHITE BLOOD COUNT 7.6 K/mm3 (4.0-10.8)
[2020-06-21 22:24] LABS: ALBUMIN 3.4 g/dl (3.4-5.0); BILIRUBIN,TOTAL 0.8 mg/dl (0.2-1); CREATININE 0.6 mg/dl (0.55-1.3); POTASSIUM 3.2 mmol/L (3.5-5.1); TOT PROT 7.2 g/dl (6.4-8.2)
[2020-06-21] MEDS ORDERED: POTASSIUM CHLORIDE 20 MEQ PREMIX IVPB 100 ML IVPB ONE (22:29)
[2020-06-21] MEDS ORDERED: KCL 10 MEQ IVPB 20 MEQ/200 ML INFUS.BAG IVPB ONE (22:30)
[2020-06-21 22:40] VITALS: BP 173/101; PULSE 74; TEMP 98.3
[2020-06-21 22:40] LABS: PLATELET ESTIMATE ADEQUATE
--- NOTE | 2020-06-23 15:11 | EKG ---
Test Reason : Blood Pressure : / mmHG Vent. Rate : 125 BPM Atrial Rate : 125 BPM P-R Int : 122 ms QRS Dur : 072 ms QT Int : 328 ms P-R-T Axes : 070 -28 060 degrees QTc Int : 473 ms SINUS TACHYCARDIA WITH PREMATURE ATRIAL COMPLEXES WITH ABERRANT CONDUCTION POSSIBLE LEFT ATRIAL ENLARGEMENT NONSPECIFIC ST ABNORMALITY ABNORMAL ECG WHEN COMPARED WITH ECG OF 21-JUN-2020 21:30, ABERRANT CONDUCTION IS NOW PRESENT ST NOW DEPRESSED IN ANTERIOR LEADS T WAVE INVERSION NO LONGER EVIDENT IN INFERIOR LEADS Confirmed by MD Xavier, Tristan ([id number]) on 06/23/2020 3:10:28 PM Referred By: Confirmed By:Tristan Park MD
== END 2020-06-22 01:17 | disposition home or self-care (01) ==
LOC: FER 21:15
PROC: 3E033NZ Introduction of Analgesics, Hypnotics, Sedatives into Peripheral Vein, Percutaneous Approach (ICD-10-PCS; principal; 2020-06-21)
PROC: 3E033GC Introduction of Other Therapeutic Substance into Peripheral Vein, Percutaneous Approach (ICD-10-PCS; 2020-06-21)
PROC: 3E0337Z Introduction of Electrolytic and Water Balance Substance into Peripheral Vein, Percutaneous Approach (ICD-10-PCS; 2020-06-21)
DX: R11.2 Nausea with vomiting, unspecified (principal)
CPT/HCPCS: 36415; 71045-TC-FY; 80053; 82550; 83690; 84484; 85025; 93005; 99285-25; J0131

== ENCOUNTER 2020-06-22 15:57 | Inpatient (IN) | payer BC ==
[2020-06-22] MEDS ORDERED: PANTOPRAZOLE SODIUM 40 MG VIAL IVPUSH ONE (16:08)
[2020-06-22] MEDS ORDERED: ONDANSETRON 4 MG/2 ML VIAL IVPUSH ONE (16:08)
[2020-06-22] MEDS ORDERED: CEFTRIAXONE 1,000 MG in DEXTROSE 5%-WATER - 50 ML IVPB ONE (16:08)
[2020-06-22] MEDS ORDERED: SODIUM CHLORIDE 0.9% 500 ML INFUS.BAG IV ONE (16:09)
[2020-06-22] MEDS ORDERED: PANTOPRAZOLE SODIUM 40 MG VIAL ONE (16:12)
--- NOTE | 2020-06-22 16:29 | PDOC ---
History of Present Illness - General Stated Complaint: VOMITING BLOOD Time Seen by Provider: 06/22/20 16:14 Past History - Medical History Allergies/Adverse Reactions: Allergies Allergy/AdvReac Type Severity Reaction Status Date / Time shellfish derived Allergy Intermediate Hives Verified 06/22/20 16:27 bupropion HCl Allergy Rash Verified 06/22/20 16:27 [From Wellbutrin] Home Medications: Ambulatory Orders Zolpidem Tartrate [Ambien] 10 mg PO HS 06/04/17 cloNIDine HCL [Catapres -] 0.1 mg PO BID 06/11/17 Clonazepam [Klonopin] 2 mg PO BID 07/20/17 Amlodipine Besylate [Norvasc -] 5 mg PO DAILY 09/23/18 Etanercept [Enbrel] 50 mg SQ WEEKLY 10/28/18 Esomeprazole Magnesium [Nexium 24Hr] 40 mg PO DAILY 03/09/19 Sertraline HCl 100 mg PO HS 07/22/19 Budesonide/Formeterol Fumarate [SYMBICORT 160/4.5mcg -] 1 puff IH BID inhaler 10/31/19 Meclizine HCl [Antivert -] 25 mg PO QID #28 tablet 05/16/20 Ciprofloxacin [Cipro (Restricted To Id)] 500 mg PO Q12H #28 tablet 05/23/20 Ondansetron [Zofran *Odt*] 4 mg SL BID PRN #10 tab 05/23/20 traMADol HCL [Ultram -] 50 mg PO BID PRN #6 tablet MDD 2 tabs 05/23/20 Fluconazole 150 mg PO ONCE #1 tablet 06/08/20 Ondansetron [Zofran *Odt*] 8 mg SL TID #12 od.tablet 06/21/20 Omeprazole 40 mg PO DAILY #60 tablet. 06/22/20 Potassium Chloride [K-Dur -] 20 meq PO Q12H 06/24/20 Anemia: Yes Asthma: Yes (USES INHALER PROAIR) Cancer: No Cardiac Disorders: No CVA: No COPD: No CHF: No Dementia: No Diabetes: No GI Disorders: Yes (COLITIS) Disorders: No HTN: Yes Hypercholesterolemia: No Liver Disease: No Psychiatric Problems: Yes (DEPRESSION, anxiety) Seizures: No Thyroid Disease: No - Surgical History Abdominal Surgery: Yes (VERTICAL SLEEVE GASTRECTOMY 2012, ABDOMINOPLASTY/AND REVISION, LIPO X2,) Appendectomy: No Cardiac Surgery: No Cholecystectomy: No GI Surgery: Yes (GASTRIC BYPASS and gastric sleeve) Lung Surgery: No Neurologic Surgery: No Orthopedic Surgery: Yes (RIGHT KNEE, SHOULDER SX, WRIST SX) - Immunization History Td Vaccination: Yes TDAP Vaccination: Yes Immunization Up to Date: Yes - Psycho-Social/Smoking History Smoking Status: No Smoking History: Current every day smoker Years of Tobacco Use: 24 Have you smoked in the past 12 months: Yes Number of Cigarettes Smoked Daily: 15 If you are a former smoker, when did you quit?: 10/14/18 'Breaking Loose' booklet given: 01/02/20 ED Treatment Course - LABORATORY CBC & Chemistry Diagram: 06/25/20 07:45 06/25/20 07:45 - Medications Given in the ED: ED Medications Discontinued Medications Generic Name Dose Route Start Last Admin Trade Name Freq PRN Reason Stop Dose Admin Ondansetron HCl 4 mg 06/22/20 16:08 06/22/20 16:24 Zofran Injection IVPUSH 06/22/20 16:09 4 mg ONCE ONE Administration Pantoprazole Sodium 80 mg 06/22/20 16:08 06/22/20 16:18 Protonix Iv IVPUSH 06/22/20 16:09 80 mg ONCE ONE Administration Sodium Chloride 1,000 ml 06/22/20 16:09 06/22/20 16:10 Normal Saline - IV 06/22/20 16:10 1,000 ml ONCE ONE Administration Medical Decision Making - Medical Decision Making 06/22/20 17:06 HPI: 45yo F with significant abdominal/GI history including sleeve gastrectomy, gastric bypass, 3x abdominoplasty, 2x liposuction, SBO w/internal hernia repair (January 2019), SBO (Sep 2019), GERD, frequent colitis (last Apr 2020), as well as rheumatoid arthritis, HTN, depression/anxiety, hypokalemia, asthma, and ?HIV (undetermined per pt) BIBA for multiple episodes of bright red hematemesis since yesterday. Pt has hx of daily N/V including small amounts of blood. Yesterday pt had increasing frequency of vomiting, which gradually became brighter red and more bloody, with gradually worsening diffuse abdominal pain and diffuse chest pain, worse when vomits. Pt had >20 episodes of bloody emesis, unknown amount of blood, worse than ever before. Pt has never required a blood transfusion. Denies SOB, dizziness, syncope, D/C, vision changes, numbness/tingling, headache. Endorses hx of alcohol abuse, last drink a few days ago. Endorses smoking, denies drug use. Denies blood thinner use. ROS: Constitutional: Negative for chills, fever, fatigue, diaphoresis. HENT: Negative for sore throat, rhinorrhea, congestion. Eyes: Negative for visual disturbance. Respiratory: Negative for shortness of breath, cough, and wheezing. Cardiovascular: Positive for chest pain. Negative for palpitations, and leg swelling. Gastrointestinal: Positive for hematemesis, nausea, vomiting, abdominal pain. Negative for blood in stool, constipation, diarrhea. Genitourinary: Negative for dysuria, flank pain, and hematuria. Musculoskeletal: Negative for myalgias, back pain, and neck pain. Skin: Negative for rash. Neurological: Negative for light-headedness, dizziness, vertigo, syncope, weakness, numbness and headaches. Psychiatric/Behavioral: Positive for alcohol abuse. Negative for behavioral problems and confusion. PE: Gen: Alert, NAD, uncomfortable-appearing, active bright red hematemesis HEENT: PERRL, EOMI, dry MM, NCAT. No conjunctival pallor. Sclera are non- icteric. CV: Tachycardic rate and regular rhythm. No murmurs, rubs, or gallops. PULM: No resp distress. CTAB, no wheezes, rales, or rhonchi. ABD: soft, diffuse TTP abdomen worst in LLQ, ND, no rebound tenderness or guarding, no CVA tenderness. BACK: No TTP of c/t/l-spine. No step-offs or deformities. MSK: No bony deformities. 2+ pulses in all extremities. NEURO: AAOx3. PERRL. No gross CN deficits. Strength and sensation grossly intact throughout. EXTREMITIES: No cyanosis. No clubbing. No edema. No calf tenderness. PSYCH: Normal mood and thought pattern. SKIN: Warm and dry. Normal capillary refill. No rashes. No jaundice. MDM: 45yo F with significant abdominal/GI history including sleeve gastrectomy, gastric bypass, 3x abdominoplasty, 2x liposuction, SBO w/internal hernia repair (January 2019), SBO (Sep 2019), GERD, frequent colitis (last Apr 2020), as well as rheumatoid arthritis, HTN, depression/anxiety, hypokalemia, asthma, and ?HIV (undetermined per pt) BIBA for multiple episodes of bright red hematemesis since yesterday. Tachycardic, hypertensive 150s, otherwise hemodynamically stable afebrile. Ddx includes: ashli paul tear, Borhaaves, gastritis, UGIB, pancreatitis, alcohol abuse/withdrawal, metabolic derangement, anemia, infection -EKG -CXR -CBC,CMP,Lipase,Lact,Coags,T&S,HIV -Protonix bolus and drip -Ceftriaxone -Zofran -IVF -CTA chest/abdomen/pelvis -Octreotide -Dispo: likely admit EKG: sinus tachycardia with occasional PVCs, 124bpm, QTc 474ms, no e/o acute ischemia CXR: rounded density R base could represent nipple or areolar shadow, consider tumor, CT helpful Hb 5.6 but hemolyzed -Repeat labs 06/22/20 18:16 Repeat Hb 8.8 (down from 12 last night) -2 unit pRBCs 06/22/20 20:10 Pt remains stable. No vomiting since zofran given. 2x BMs with BRBPR and dark stool, states stools earlier today were normal without blood. Dr Panda consulted - requests ICU 06/22/20 20:20 Replete electrolytes: -K -Mg -Phos-NaK packet Consulted ICU for admission 06/22/20 21:06 Chest No evidence of pulmonary embolism. No aortic aneurysm or dissection Heart size is normal. Small pericardial effusion 6 mm low-attenuation right thyroid nodule. Recommend nonemergent ultrasound follow-up No pathologically enlarged mediastinal, hilar or axillary lymph nodes The tracheobronchial tree is patent Mild centrilobular emphysematous changes in the upper lobes with multiple bilateral subpleural bulla No airspace consolidation, infiltrates or pleural effusions 8 mm right lower lobe nodule, series 8 image 46. Fleischner Society guidelines for follow-up as follows: Solitary nodule size: 6-8 mm - low risk patients: follow-up at 6-12 months, then consider further follow-up at 18-24 months - high risk patients: initial follow-up CT at 6-12 months and then at 18-24 months if no change Abdomen and pelvis Small to moderate hiatal hernia Postsurgical changes of gastric bypass surgery Mild perihepatic and perisplenic simple ascites with trace ascites in the bilateral paracolic gutters and small collection in the pelvis. No intra-abdominal free air The upper abdominal visceral organs are unremarkable There is mild soft tissue stranding in the left upper quadrant in proximity to the gastric fundus which is of uncertain etiology, possibly residual postsurgical changes There is a small amount of contrast in the stomach as well as likely dilute contrast within several loops of small bowel and colon. Few mildly distended loops of fluid-filled small bowel in the lower abdomen and pelvis possibly ileus. No discrete transition point identified No evidence of GI contrast extravasation to suggest active hemorrhage. Myomatous changes of the uterus Discharge - Discharge Information Problems reviewed: Yes Clinical Impression/Diagnosis: Hematemesis, GI bleed Condition: Guarded Disposition: TRANSFER ACUTE CARE/OTHER HOSP - Admission Yes - Follow up/Referral - Patient Discharge Instructions - Post Discharge Activity
[2020-06-22 16:52] LABS: BASO % 0.7 % (0-2.0); EOS % 0.3 % (0-4.5); HEMATOCRIT 17.6 % (32.4-45.2); LYMPH % 37.6 % (8-40); MCH 31.9 pg (25.7-33.7); MCHC 31.8 g/dl (32.0-36.0); MEAN CELL VOLUME 100.5 fl (80-96); MEAN PLT VOLUME 9.3 fl (7.5-11.1); MONO % 18.9 % (3.8-10.2); NEUT % 42.5 % (42.8-82.8); PLATELET COUNT 159 K/MM3 (134-434); RBC 1.76 M/mm3 (3.60-5.2); RDW 17.6 % (11.6-15.6)
[2020-06-22 16:55] LABS: HEMOGLOBIN 5.6 GM/dL (10.7-15.3); WHITE BLOOD COUNT 1.5 K/mm3 (4.0-10.0)
[2020-06-22 16:59] LABS: INR 1.01 (0.83-1.09); PROTHROMBIN TIME (PATIENT) 11.9 SEC (9.7-13.0)
[2020-06-22 17:02] LABS: ACTIVATED PTT 23.8 SECONDS (25.2-36.5)
[2020-06-22 17:24] LABS: ALBUMIN 2.5 g/dl (3.4-5.0); ALK PHOS 84 U/L (45-117); ANION GAP 8 MMOL/L (8-16); BILIRUBIN,TOTAL 0.3 mg/dL (0.2-1); CHLORIDE 108 mmol/L (98-107); CO2 20 mmol/L (21-32); CREATININE 0.6 mg/dL (0.55-1.3); GLUCOSE,RANDOM 194 mg/dL (74-106); LIPASE 122 U/L (73-393); POTASSIUM 3.9 mmol/L (3.5-5.1); SGOT/AST 29 U/L (15-37); SGPT/ALT 16 U/L (13-61); SODIUM 137 mmol/L (136-145); TOT PROT 6.2 g/dl (6.4-8.2)
[2020-06-22 17:58] LABS: BASO % 0.5 % (0-2.0); EOS % 0.4 % (0-4.5); HEMATOCRIT 27.2 % (32.4-45.2); HEMOGLOBIN 8.8 GM/dL (10.7-15.3); LYMPH % 3.7 % (8-40); MCH 31.8 pg (25.7-33.7); MCHC 32.2 g/dl (32.0-36.0); MEAN CELL VOLUME 98.6 fl (80-96); MEAN PLT VOLUME 9.4 fl (7.5-11.1); MONO % 7.1 % (3.8-10.2); NEUT % 88.3 % (42.8-82.8); PLATELET COUNT 248 K/MM3 (134-434); RBC 2.76 M/mm3 (3.60-5.2); RDW 17.4 % (11.6-15.6); WHITE BLOOD COUNT 10.8 K/mm3 (4.0-10.0)
--- NOTE | 2020-06-22 19:02 | PDOC ---
Documentation entered by Rosa Iverson SCRIBE, acting as scribe for Maribel Smith MD. Maribel Smith MD: This documentation has been prepared by the allanibeKishor Ana, SCRIBE, under my direction and personally reviewed by me in its entirety. I confirm that the documentation accurately reflects all work, treatment, procedures, and medical decision making performed by me. Attending Attestation - Resident Resident Name: Mary Reynoso - ED Attending Attestation I have performed the following: I have examined & evaluated the patient, The case was reviewed & discussed with the resident, I agree w/resident's findings & plan, Exceptions are as noted - HPI HPI: 06/22/20 17:15 Patient is a 45 year old female with a significant past medical history of smoking, alcohol abuse, HIV, rheumatoid arthritis, hypertension, depression, anxiety, hypokalemia, asthma, sleeve gastrectomy, gastric bypass, 3x abdominoplasty, 2x liposuction, SBO w/internal hernia repair, GERD, and frequent colitis, who presents to the ED, BIBA, with hematemesis x1 day. Patient stated she has had multiple episodes of bloody n/ vomiting yesterday which "kept getting redder after each time". Patient endorses: chest pain and abdominal pain Patient denies: syncope, numbness/tingling, dizziness, headache, any vision changes, diarrhea, constipation, or any other related symptoms. Allergies: shellfish derived and bupropion HCl - Physicial Exam PE: 06/22/20 17:21 General: thin female CVS: + s1 s2, tachy Abdomen: diffusely ttp, no rebound, 1+ voluntary guarding Neuro: awake, responds appropriately to questions, no focal deficits - Critical Care Time Total Critical Care Time: 35 Critical Care Statement: The care of this patient involved high complexity decision making to prevent further life threatening deterioration of the patient's condition and/or to evaluate & treat vital organ system(s) failure or risk of failure. - Medical Decision Making 06/22/20 17:22 45 yo F p/w hematemesis, extensive GI hx, tachycardic on presentation and arrived with emesis bag with ~300ccs of what appears to be bright red blood, no vomiting since arrival in ED, possible ashli paul tear vs. Borhaaves vs. gastritis/upper GI bleed. Plan: -labs -cxr -protonix -zofran -CT c/a/p -admit This clinical encounter is taking place during a federal and state health care emergency attributable to the novel [place] Virus pandemic. The [place] of the Department of Health and Human Services has declared, pursuant to the Public Health Service Act 319F-3 (42 U.S.C. 247d-6d), that a covered persons activities related to medical countermeasures against COVID-19 will be immune from liability under Federal and State law. Heart Score/ECG Review - ECG Impressions Comment:: 06/22/20 17:25 sinus tach, rate 125, no ST elevations Discharge - Discharge Information Problems reviewed: Yes Clinical Impression/Diagnosis: Hematemesis, GI bleed Condition: Guarded Disposition: TRANSFER ACUTE CARE/OTHER HOSP - Follow up/Referral - Patient Discharge Instructions - Post Discharge Activity
[2020-06-22 19:03] LABS: ALBUMIN 2.3 g/dl (3.4-5.0); BILIRUBIN,TOTAL 0.1 mg/dL (0.2-1); BLOOD UREA NITROGEN 3.8 mg/dL (7-18); CALCIUM 7.7 mg/dL (8.5-10.1); CREATININE 0.6 mg/dL (0.55-1.3); MAGNESIUM 1.6 mg/dL (1.8-2.4); PHOSPHOROUS 1.6 mg/dL (2.5-4.9); POTASSIUM 3.2 mmol/L (3.5-5.1); TOT PROT 5.5 g/dl (6.4-8.2)
[2020-06-22] MEDS ORDERED: POTASSIUM CHLORIDE TABS 20 MEQ TABLET.ER (FP) PO ONE ×2 (19:20→19:29)
[2020-06-22] MEDS ORDERED: MAGNESIUM SULF 50% (8.12 MEQ/2 ML-1 GM VIAL) IVPB ONE (19:20)
[2020-06-22] MEDS ORDERED: MAGNESIUM SULFATE IN WATER 2 GM/50 ML IVPB IVPB ONE (19:29)
[2020-06-22] MEDS: PANTOPRAZOLE SODIUM 80 MG in SODIUM CHLORIDE 100 ML IVPB SCH (19:40)
--- NOTE | 2020-06-22 19:42 | PDOC ---
*Physical Exam - Vital Signs Last Vital Signs Temp Pulse Resp BP Pulse Ox 97.9 F 105 H 19 146/106 H 100 06/22/20 16:30 06/22/20 16:30 06/22/20 16:30 06/22/20 16:30 06/22/20 16:30 ED Treatment Course - LABORATORY CBC & Chemistry Diagram: 06/22/20 17:34 06/22/20 17:34 - ADDITIONAL ORDERS Additional order review: Laboratory Results 06/22/20 06/22/20 06/22/20 17:34 17:34 17:34 PT with INR INR PTT (Actin FS) Sodium 139 Potassium 3.2 L Chloride 106 Carbon Dioxide 25 Anion Gap 8 BUN 3.8 L Creatinine 0.6 Est GFR (CKD-EPI)AfAm 128.48 Est GFR (CKD-EPI)NonAf 110.86 POC Glucometer Random Glucose 134 H Lactic Acid Calcium 7.7 L Phosphorus 1.6 L Magnesium 1.6 L Total Bilirubin 0.1 L AST 14 L ALT 13 Alkaline Phosphatase 76 Creatine Kinase 23 L Troponin I 0.02 Total Protein 5.5 L Albumin 2.3 L Lipase 119 Serum , Qual Negative Blood Type A POSITIVE Antibody Screen Negative Crossmatch See Detail 06/22/20 06/22/20 06/22/20 16:52 16:00 16:00 PT with INR INR PTT (Actin FS) Sodium Potassium Chloride Carbon Dioxide Anion Gap BUN Creatinine Est GFR (CKD-EPI)AfAm Est GFR (CKD-EPI)NonAf POC Glucometer 151 Random Glucose Lactic Acid 2.9 H* Calcium Phosphorus Magnesium Total Bilirubin AST ALT Alkaline Phosphatase Creatine Kinase Troponin I Total Protein Albumin Lipase Serum , Qual Blood Type Cancelled Antibody Screen Cancelled Crossmatch 06/22/20 06/22/20 16:00 16:00 PT with INR 11.90 INR 1.01 PTT (Actin FS) 23.8 L Sodium 137 Potassium 3.9 Chloride 108 H Carbon Dioxide 20 L Anion Gap 8 BUN 3.0 L Creatinine 0.6 Est GFR (CKD-EPI)AfAm 128.48 Est GFR (CKD-EPI)NonAf 110.86 POC Glucometer Random Glucose 194 H Lactic Acid Calcium 8.0 L Phosphorus Magnesium Total Bilirubin 0.3 AST 29 ALT 16 Alkaline Phosphatase 84 Creatine Kinase Troponin I < 0.02 Total Protein 6.2 L Albumin 2.5 L Lipase 122 Serum , Qual Blood Type Antibody Screen Crossmatch 06/22/20 06/22/20 06/22/20 17:34 16:52 16:00 RBC 2.76 L 1.76 L MCV 98.6 H 100.5 H MCHC 32.2 31.8 L RDW 17.4 H 17.6 H MPV 9.4 9.3 Neutrophils % 88.3 H D 42.5 L D Lymphocytes % 3.7 L D 37.6 D Monocytes % 7.1 18.9 H Eosinophils % 0.4 0.3 Basophils % 0.5 0.7 POC Glucometer 151 - Medications Given in the ED: ED Medications Discontinued Medications Generic Name Dose Route Start Last Admin Trade Name Freq PRN Reason Stop Dose Admin Ceftriaxone Sodium 1,000 mg/ 50 mls @ 100 mls/hr 06/22/20 16:08 06/22/20 16:45 Dextrose IVPB 06/22/20 16:37 100 mls/hr ONCE ONE Administration Magnesium Sulfate 2 gm 06/22/20 19:20 06/22/20 19:40 Magnesium Sulfate IVPB 06/22/20 19:21 2 gm ONCE ONE Administration Ondansetron HCl 4 mg 06/22/20 16:08 06/22/20 16:24 Zofran Injection IVPUSH 06/22/20 16:09 4 mg ONCE ONE Administration Pantoprazole Sodium 80 mg 06/22/20 16:08 06/22/20 16:18 Protonix Iv IVPUSH 06/22/20 16:09 80 mg ONCE ONE Administration Potassium Chloride 40 meq 06/22/20 19:20 06/22/20 19:40 K-Dur - PO 06/22/20 19:21 40 meq ONCE ONE Administration Sodium Chloride 1,000 ml 06/22/20 16:09 06/22/20 16:10 Normal Saline - IV 06/22/20 16:10 1,000 ml ONCE ONE Administration Medical Decision Making - Medical Decision Making 06/22/20 19:40 Pt comes with GI bleed; likely due to her vomiting. Pt has a hx of gastric bypass, laxative use and vomiting. Likely espophageal tear from retching, which is why I am not opting to add on odansetron. I added on MG and K replacement. Pt will be admitted. 06/22/20 20:54 Pt has blood in her distal esophagus seen on CTA 06/22/20 20:59 Patient Name: AIDA STRICKLAND THIS IS A PRELIMINARY REPORT DATE OF SERVICE: 2020-06-22 20:06:19 IMAGES: [id number] EXAM: ABDOMEN/PELVIS CTA W/WO CONTR HISTORY: GI bleed COMPARISON: Abdomen and pelvis CT 06/17/20 FINDINGS: ChestNo evidence of pulmonary embolism. No aortic aneurysm or dissection Heart size is normal. Small pericardial effusion 6 mm low-attenuation right thyroid nodule. Recommend nonemergent ultrasound follow-up No pathologically enlarged mediastinal, hilar or axillary lymph nodes The tracheobronchial tree is patent Mild centrilobular emphysematous changes in the upper lobes with multiple bilateral subpleural bulla No airspace consolidation, infiltrates or pleural effusions 8 mm right lower lobe nodule, series 8 image 46. Fleischner Society guidelines for follow-up as follows: Solitary nodule size: 6-8 mm - low risk patients: follow-up at 6-12 months, then consider further follow-up at 18-24 months - high risk patients: initial follow-up CT at 6-12 months and then at 18-24 months if no change Abdomen and pelvis Small to moderate hiatal hernia Postsurgical changes of gastric bypass surgery Mild perihepatic and perisplenic simple ascites with trace ascites in the bilateral paracolic gutters and small collection in the pelvis. No intra-abdominal free air The upper abdominal visceral organs are unremarkable There is mild soft tissue stranding in the left upper quadrant in proximity to the gastric fundus which is of uncertain etiology, possibly residual postsurgical changes There is a small amount of contrast in the stomach as well as likely dilute contrast within several loops of small bowel and colon. Few mildly distended loops of fluid-filled small bowel in the lower abdomen and pelvis possibly ileus. No discrete transition point identified No evidence of GI contrast extravasation to suggest active hemorrhage. Myomatous changes of the uterus 06/22/20 21:38 Pt admitted Discharge - Discharge Information Problems reviewed: Yes Clinical Impression/Diagnosis: GI bleed Hematemesis Qualifiers: Nausea presence: unspecified Qualified Code(s): K92.0 - Hematemesis Condition: Fair - Follow up/Referral - Patient Discharge Instructions - Post Discharge Activity
[2020-06-22] MEDS ORDERED: OCTREOTIDE ACETATE 200 MCG, OCTREOTIDE ACETATE 1,000 MCG in DEXTROSE 5%-WATER - 496 ML IVPB SCH (20:15)
[2020-06-22] MEDS ORDERED: NAPH,MB-DB/K PH,MBDB POWDER PACKET PO ONE (20:20)
[2020-06-22 20:36] LABS: ANISOCYTOSIS 1+; MACROCYTOSIS 1+; OVALOCYTE 1+; PLATELET ESTIMATE DECREASED
[2020-06-22] MEDS ORDERED: NAPH,MB-DB/K PH,MBDB POWDER PACKET ONE (20:43)
--- NOTE | 2020-06-22 21:23 | CON.GI ---
Consult Consult Specialty:: GI Referred by:: Hospitalist Service Reason for Consultation:: Hematemesis - History of Present Illness Chief Complaint: vomiting, hematemesis History of Present Illness: 45F admitted through [facility] ER for evaluation of hematemesis. Multiple episodes at home. Came to ER 4PM, 2 episodes while here. Subsequently passed dark red blood per rectum while in ER. No further vomiting. Has been to the ER 06/16, 06/19, 06/21for complaints of chest pain, upper abdominal pain, retching and vomiting. She had some blood tinged vomtus yesterday. Diminished appetite and has been unable to eat or drink much as everything would "come up." In ER, triage vitals at 4pm revealed T: 98.3 P: 105 BP: 133/97. GI called this evening at 8pm for evaluation. Initial Hgb was 8.8. yesterday her Hgb was 12.9. She has been given a 1 Liter bolus and at the time of my evaluation, she was started on 1 U PRBC. She alludes to taking advil daily. She has been drinking 9 ounces of alcohol 3-4 x per week for 2 years. She has history of gastric sleeve 2011 and gastric bypass 11/15. She had a small bowel series 05/22/20 ordered by her bariatric surgeon Dr. Peterson that revealed normal esophagus, a possible gastric ulcer in the fundus and possible narrowing of the transverse colon. Her gastroennterologist is Dr. Gab Valdes. She states she was going to have an upper endoscopy with him next week. She had an EGD in [address] Gab Valdes that revealed sleeve anatomy, antral erythema. She had a CT scan of the abdomen and pelvis 06/08/20 that revealed gastric bypass anatomy and a lung nodule, dilated hiatal hernia and dilated loop of bowel. She had a CT scan of the A/P 06/17 that failed to reveal any acute pathology. She has never had a colonoscopy. No family history of colorectal cancer or other GI malignancy. Returned from CTA of the chest/abdomen and pelvis. - History Source History Provided By: Patient, Family Member (sister present at bedside), Medical Record Limitations to Obtaining History: No Limitations - Past Medical History Cardio/Vascular: Yes: HTN Pulmonary: Yes: Sleep Apnea Gastrointestinal: Yes: GERD ...LMP: 05/11/20 ...: No Psych: Yes: Anxiety, Panic Rheumatology: Yes: Fibromyalgia, Rheumatoid Arthritis - Past Surgical History Past Surgical History: Yes: Arthrosocopy (bilateral shoulders, bilateral knees) Additional Surgical History: Gastric sleeve 2011, gastric bypass 11/15, abdominoplasty x 3, eyelid lifts bilaterally, liposuction, right eye cyst removal, breast Lift - Alcohol/Substance Use Hx Alcohol Use: Yes (9oz of alcohol 3-4x per week) History of Substance Use: reports: None - Smoking History Smoking history: Current every day smoker Have you smoked in the past 12 months: Yes Aproximately how many cigarettes per day: 15 If you are a former smoker, when did you quit?: 10/14/18 - Social History ADL: Independent 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 Place of : [facility] History of Recent Travel: No Home Medications - Allergies Allergies/Adverse Reactions: Allergies Allergy/AdvReac Type Severity Reaction Status Date / Time shellfish derived Allergy Intermediate Hives Verified 06/22/20 16:27 bupropion HCl Allergy Rash Verified 06/22/20 16:27 [From Wellbutrin] - Home Medications Home Medications: Ambulatory Orders Zolpidem Tartrate [Ambien] 10 mg PO HS 06/04/17 cloNIDine HCL [Catapres -] 0.1 mg PO BID 06/11/17 Clonazepam [Klonopin] 2 mg PO BID 07/20/17 Amlodipine Besylate [Norvasc -] 5 mg PO DAILY 09/23/18 Etanercept [Enbrel] 50 mg SQ WEEKLY 10/28/18 Esomeprazole Magnesium [Nexium 24Hr] 40 mg PO DAILY 03/09/19 Sertraline HCl 100 mg PO HS 07/22/19 Budesonide/Formeterol Fumarate [SYMBICORT 160/4.5mcg -] 1 puff IH BID inhaler 10/31/19 Meclizine HCl [Antivert -] 25 mg PO QID #28 tablet 05/16/20 Ciprofloxacin [Cipro (Restricted To Id)] 500 mg PO Q12H #28 tablet 05/23/20 Ondansetron [Zofran *Odt*] 4 mg SL BID PRN #10 tab 05/23/20 metroNIDAZOLE [Metronidazole] 500 mg PO TID #42 tablet 05/23/20 traMADol HCL [Ultram -] 50 mg PO BID PRN #6 tablet MDD 2 tabs 05/23/20 Fluconazole 150 mg PO ONCE #1 tablet 06/08/20 Potassium Chloride [K-Dur -] 40 meq PO DAILY #6 tablet.er 06/08/20 Ondansetron [Zofran *Odt*] 8 mg SL TID #12 od.tablet 06/21/20 Omeprazole 40 mg PO DAILY #60 tablet. 06/22/20 Review of Systems - Review of Systems Constitutional: denies: Chills Cardiovascular: reports: Chest Pain. denies: Shortness of Breath Respiratory: denies: Cough Gastrointestinal: reports: Abdominal Pain, Nausea, Rectal Bleeding, Vomiting, Vomiting Blood Physical Exam-GI Vital Signs: Vital Signs Temperature 98.0 F 06/22/20 18:30 Pulse Rate 101 H 06/22/20 18:30 Respiratory Rate 18 06/22/20 18:30 Blood Pressure 127/68 06/22/20 18:30 O2 Sat by Pulse Oximetry (%) 99 06/22/20 18:30 Constitutional: Yes: Calm Eyes: No: Sclera Icterus Cardiovascular: Yes: Regular Rate and Rhythm. No: Murmur Respiratory: Yes: CTA Bilaterally Gastrointestinal Inspection: Yes: Scars (Upper abdominal trochar scars, horizontal pelvic scar, midline vertical surgical scar). No: Distention ...Auscultate: Yes: Normoactive Bowel Sounds ...Palpate: Yes: Soft, Tenderness (TTP LUQ). No: Hepatomegaly, Splenomegaly ...Percussion: No: Tympanitic ...Rectal Exam: Yes: Other (No external lesions, no masses, scant stool and blood) Edema: No (No LE edema) Neurological: Yes: Alert Labs: CBC, BMP 06/22/20 17:34 06/22/20 17:34 INR, PTT INR 1.01 (0.83-1.09) 06/22/20 16:00 Problem List - Problems (1) Hematemesis Assessment/Plan: Suspect upper GI bleed with passage of blood (expedited due to gastric bypass anatomy) leading to passage of concomitant maroon rectal bleeding. The etiology of the upper GI bleed is in question. possibilities would need to include a ashli paul tear given retching history, Boerhaave syndrome, PUD given frequent NSAID use and prior abnormal upper GI series finding, dieulafoy bleed. While she drinks alcohol regularly she has been only drinking over the last couple of years. variceal hemorrhage would be lower in differential as normal platelet count and INR not suggestive of significant portal hypertension. Remains hemodynamically stable. Advise: Obtain official read of the CTA of the C/A/P Continue resuscitation. Large bore IV access ICU admission NPO Protonix infusion Octreotide infusion has been initiated as well Monitor H/H. receiving 1st U PRBC Pending CTA read, discussed upper endoscopy with Ms. Michel. We discussed potential risks of the procedure like but not limited to bleeding, perforation requiring surgery to repair, infection, sedation medication effects all of which could be potentially life threatening. Discussed potential need for endotracehal intubation. She has agreed to the procedure. Code(s): K92.0 - HEMATEMESIS
--- NOTE | 2020-06-22 22:06 | PN ---
Progress Note (short form) - Note Progress Note: CTA report: 8mm RLL nodule Hiatal hernia soft tissue strading in the LUQ proximal to gastric fundus of uncertain etiology. ? post surgical changes ? contrast in stomach as well as diluet contrast within several loops of small bowel and colon Mildly distended loops of small bowel in the lower abdomenand pelvius, question ileus. No transition point. No GI contrast extravasation to suggest active hemorrhage Uterine fibroids Problem List - Problems (1) Hematemesis Code(s): K92.0 - HEMATEMESIS
[2020-06-22] MEDS ORDERED: fentaNYL CITRATE 250 MCG/5 ML VIAL ONE (22:50)
[2020-06-22] MEDS ORDERED: MIDAZOLAM HCL 2 MG/2 ML SINGLE DOSE VIAL ONE (22:50)
[2020-06-22] MEDS: MUPIROCIN 2% TOPICAL OINTMENT FOR DECOLONIZATION NS SCH (23:30)
--- NOTE | 2020-06-22 23:33 | CONSULT ---
Consultation: REQUESTING PROVIDER: CONSULT REQUEST: We have been asked to medically evaluate this patient for (specify). HISTORY OF PRESENT ILLNESS: 45 YO F with PMH HTN, rheumatoid arthritis, asthma, depression/anxiety, GERD, SBO (09/2019), sleeve gastrectomy, gastric bypass, 3x abdominoplasty, 2x liposuction, SBO w/internal hernia repair (01/2019) was BIBA for hematemesis for one week that worsened since yesterday. She had episodes of hematemesis at the beginning of the week and went to urgent care that sent her to ED. She has gone to the ED between [facility] and [place] every other day for hematemesis associated with abdominal & chest pain. During those visits, she was given medication for nausea and pain and then sent home. However, she had an increased frequency and volume of bloody vomit beginning yesterday. Her diffuse abdominal and sharp chest pain is associated with vomiting. Heating pads did not improve her pain. Denies taking blood thinners or aspirin. Denies lightheadedness, dizziness, syncope, SOB, diarrhea. On arrival to ED, patient had a bag of 300 mL of bright red blood. After the patient received zofran, she did not have further episodes of vomiting. In the ED, She was also started on ceftriaxone, octreotide, and protonix bolus & drip. Hgb came back as 5.6, but that value was hemolyzed. Repeat Hbg was 8.8, which was greatly reduced from the Hgb level of 12 the previous night. One unit of PRBCs was ordered. Since then, patient had 4 dark red stools. Abdomen/pelvis & chest/thorax CTA were ordered. Her Overnight Caregiver is Dr. Valdes. She had an endoscopy scheduled for 07/02/20. An Endoscopy around 3 years ago that showed acid reflux and an ulcer. 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 Sharon Larson (sister) [phone] Reina De (aunt) [phone] REVIEW OF SYSTEMS: CONSTITUTIONAL: Absent: fever, chills, diaphoresis, generalized weakness, malaise, loss of appetite, weight change HEENT: Absent: rhinorrhea, nasal congestion, throat pain, throat swelling, difficulty swallowing, mouth swelling, ear pain, eye pain, visual changes CARDIOVASCULAR: intermittent right-sided chest pain associated with vomiting Absent: syncope, palpitations, irregular heart rate, lightheadedness, peripheral edema RESPIRATORY: Absent: cough, shortness of breath, dyspnea with exertion, orthopnea, wheezing, stridor, hemoptysis GASTROINTESTINAL: abdominal pain Absent: abdominal distension, nausea, vomiting, diarrhea, constipation, melena, hematochezia GENITOURINARY: Absent: dysuria, frequency, urgency, hesitancy, hematuria, flank pain, genital pain MUSCULOSKELETAL: Absent: myalgia, arthralgia, joint swelling, back pain, neck pain SKIN: Absent: rash, itching, pallor HEMATOLOGIC/IMMUNOLOGIC: Absent: easy bleeding, easy bruising, lymphadenopathy, frequent infections ENDOCRINE: Absent: unexplained weight gain, unexplained weight loss, heat intolerance, cold intolerance NEUROLOGIC: Absent: headache, focal weakness or paresthesias, dizziness, unsteady gait, seizure, mental status changes, bladder or bowel incontinence PSYCHIATRIC: Absent: anxiety, depression, suicidal or homicidal ideation, hallucinations. PHYSICAL EXAMINATION Vital Signs - 24 hr 06/22/20 06/22/20 06/22/20 16:27 16:30 18:30 Temperature 98.3 F 97.9 F 98.0 F Pulse Rate 105 H Pulse Rate [ 105 H 101 H Apical] Respiratory 20 19 18 Rate Blood Pressure 133/97 Blood Pressure 146/106 H 127/68 [Right Arm] O2 Sat by Pulse 100 100 99 Oximetry (%) 06/22/20 06/22/20 06/22/20 21:37 22:14 23:08 Temperature 99.5 F 99.2 F Pulse Rate 83 Pulse Rate [ 87 94 H Apical] Respiratory 19 19 19 Rate Blood Pressure 123/98 Blood Pressure 145/92 138/89 [Right Arm] O2 Sat by Pulse 100 99 99 Oximetry (%) GENERAL: Awake, alert, and fully oriented, in no acute distress. HEENT: Normal with no signs of trauma. exopthalmus. PERRL. Moist mucous membranes. LUNGS: Breath sounds equal, clear to auscultation bilaterally. No wheezes, and no crackles. No accessory muscle use. HEART: Regular rate and rhythm, normal S1 and S2 without murmur, rub or gallop. ABDOMEN: Soft, not distended, normoactive bowel sounds, no guarding, no rebound, no masses. diffusely TTP UPPER EXTREMITIES: 2+ pulses, warm, well-perfused. No peripheral edema. cut lesions on Left arm self inflicted injury LOWER EXTREMITIES: 2+ pulses, warm, well-perfused. No calf tenderness. No peripheral edema. NEUROLOGICAL: Cranial nerves II-XII intact. Normal speech. Normal gait. PSYCHIATRIC: Cooperative. Good eye contact. Appropriate mood and affect. Laboratory Results - last 24 hr 06/22/20 06/22/20 06/22/20 16:00 16:00 16:00 WBC 1.5 L* RBC 1.76 L Hgb 5.6 L* Hct 17.6 L D MCV 100.5 H MCH 31.9 MCHC 31.8 L RDW 17.6 H Plt Count 159 D MPV 9.3 Absolute Neuts (auto) 0.6 L Neutrophils % 42.5 L D Neutrophils % (Manual) 46.1 Band Neutrophils % 0.9 Lymphocytes % 37.6 D Lymphocytes % (Manual) 47.9 H Monocytes % 18.9 H Monocytes % (Manual) 5 Eosinophils % 0.3 Eosinophils % (Manual) 0.0 Basophils % 0.7 Basophils % (Manual) 0.0 Myelocytes % (Man) 0 Promyelocytes % (Man) 0 Blast Cells % (Manual) 0 Nucleated RBC % 2 H Metamyelocytes 0 Hypochromia 1+ Platelet Estimate Decreased Polychromasia 1+ Poikilocytosis 1+ Anisocytosis 1+ Microcytosis 1+ Macrocytosis 1+ Ovalocytes 1+ Sparkill Cells 1+ Acanthocytes (Spur) 1+ Fragmented RBCs 1+ Schistocytes 1+ PT with INR 11.90 INR 1.01 PTT (Actin FS) 23.8 L Sodium 137 Potassium 3.9 Chloride 108 H Carbon Dioxide 20 L Anion Gap 8 BUN 3.0 L Creatinine 0.6 Est GFR (CKD-EPI)AfAm 128.48 Est GFR (CKD-EPI)NonAf 110.86 POC Glucometer Random Glucose 194 H Lactic Acid Calcium 8.0 L Phosphorus Magnesium Total Bilirubin 0.3 AST 29 ALT 16 Alkaline Phosphatase 84 Creatine Kinase Troponin I < 0.02 Total Protein 6.2 L Albumin 2.5 L Lipase 122 Serum , Qual HIV Ag/Ab Combo Qual Blood Type Antibody Screen Crossmatch 06/22/20 06/22/20 06/22/20 16:00 16:00 16:52 WBC RBC Hgb Hct MCV MCH MCHC RDW Plt Count MPV Absolute Neuts (auto) Neutrophils % Neutrophils % (Manual) Band Neutrophils % Lymphocytes % Lymphocytes % (Manual) Monocytes % Monocytes % (Manual) Eosinophils % Eosinophils % (Manual) Basophils % Basophils % (Manual) Myelocytes % (Man) Promyelocytes % (Man) Blast Cells % (Manual) Nucleated RBC % Metamyelocytes Hypochromia Platelet Estimate Polychromasia Poikilocytosis Anisocytosis Microcytosis Macrocytosis Ovalocytes Ion Cells Acanthocytes (Spur) Fragmented RBCs Schistocytes PT with INR INR PTT (Actin FS) Sodium Potassium Chloride Carbon Dioxide Anion Gap BUN Creatinine Est GFR (CKD-EPI)AfAm Est GFR (CKD-EPI)NonAf POC Glucometer 151 Random Glucose Lactic Acid 2.9 H* Calcium Phosphorus Magnesium Total Bilirubin AST ALT Alkaline Phosphatase Creatine Kinase Troponin I Total Protein Albumin Lipase Serum , Qual HIV Ag/Ab Combo Qual Blood Type Cancelled Antibody Screen Cancelled Crossmatch 06/22/20 06/22/20 06/22/20 17:34 17:34 17:34 WBC 10.8 H RBC 2.76 L Hgb 8.8 L Hct 27.2 L D MCV 98.6 H MCH 31.8 MCHC 32.2 RDW 17.4 H Plt Count 248 D MPV 9.4 Absolute Neuts (auto) 9.5 H Neutrophils % 88.3 H D Neutrophils % (Manual) Band Neutrophils % Lymphocytes % 3.7 L D Lymphocytes % (Manual) Monocytes % 7.1 Monocytes % (Manual) Eosinophils % 0.4 Eosinophils % (Manual) Basophils % 0.5 Basophils % (Manual) Myelocytes % (Man) Promyelocytes % (Man) Blast Cells % (Manual) Nucleated RBC % 0 Metamyelocytes Hypochromia Platelet Estimate Polychromasia Poikilocytosis Anisocytosis Microcytosis Macrocytosis Ovalocytes Sparkill Cells Acanthocytes (Spur) Fragmented RBCs Schistocytes PT with INR INR PTT (Actin FS) Sodium Potassium Chloride Carbon Dioxide Anion Gap BUN Creatinine Est GFR (CKD-EPI)AfAm Est GFR (CKD-EPI)NonAf POC Glucometer Random Glucose Lactic Acid Calcium Phosphorus Magnesium Total Bilirubin AST ALT Alkaline Phosphatase Creatine Kinase Troponin I Total Protein Albumin Lipase Serum , Qual HIV Ag/Ab Combo Qual Negative Blood Type A POSITIVE Antibody Screen Negative Crossmatch See Detail 06/22/20 06/22/20 17:34 17:34 WBC RBC Hgb Hct MCV MCH MCHC RDW Plt Count MPV Absolute Neuts (auto) Neutrophils % Neutrophils % (Manual) Band Neutrophils % Lymphocytes % Lymphocytes % (Manual) Monocytes % Monocytes % (Manual) Eosinophils % Eosinophils % (Manual) Basophils % Basophils % (Manual) Myelocytes % (Man) Promyelocytes % (Man) Blast Cells % (Manual) Nucleated RBC % Metamyelocytes Hypochromia Platelet Estimate Polychromasia Poikilocytosis Anisocytosis Microcytosis Macrocytosis Ovalocytes Sparkill Cells Acanthocytes (Spur) Fragmented RBCs Schistocytes PT with INR INR PTT (Actin FS) Sodium 139 Potassium 3.2 L Chloride 106 Carbon Dioxide 25 Anion Gap 8 BUN 3.8 L Creatinine 0.6 Est GFR (CKD-EPI)AfAm 128.48 Est GFR (CKD-EPI)NonAf 110.86 POC Glucometer Random Glucose 134 H Lactic Acid Calcium 7.7 L Phosphorus 1.6 L Magnesium 1.6 L Total Bilirubin 0.1 L AST 14 L ALT 13 Alkaline Phosphatase 76 Creatine Kinase 23 L Troponin I 0.02 Total Protein 5.5 L Albumin 2.3 L Lipase 119 Serum , Qual Negative HIV Ag/Ab Combo Qual Blood Type Antibody Screen Crossmatch Active Medications Generic Name Dose Route Start Last Admin Trade Name Freq PRN Reason Stop Dose Admin Chlorhexidine Gluconate 1 applic 06/23/20 22:00 Hibiclens For Decolonization - TP HS JEAN MARIE Pantoprazole Sodium 80 mg/ 100 mls @ 10 mls/hr 06/22/20 17:15 06/22/20 19:40 Sodium Chloride IVPB 06/25/20 17:06 10 mls/hr Q10H JEAN MARIE Administration 8 MG/HR Octreotide Acetate 200 mcg/ 500 mls @ 20.833 mls/hr 06/22/20 20:15 06/22/20 2 0:52 Octreotide Acetate 1,000 mcg/ IVPB 20.833 mls/hr Dextrose ASDIR JEAN MARIE Administration Mupirocin 1 applic 06/22/20 22:45 06/22/20 23:30 Bactroban Ointment (For Decolonization) - NS 06/27/20 22:44 Not Given BID JEAN MARIE Nicotine 21 mg 06/23/20 10:00 Nicoderm Patch - TD DAILY JEAN MARIE ASSESSMENT/PLAN: 45 YO F with PMH HTN, rheumatoid arthritis, asthma, depression/anxiety, GERD, SBO (09/2019), sleeve gastrectomy, gastric bypass, 3x abdominoplasty, 2x liposuction, SBO w/internal hernia repair (01/2019) presented with worsening hematemesis and later developed bloody stool. Admitted to ICU for monitoring hemodynamic stability. Neuro AAOX3 Cardio Trop I 0.02 #Prolonged QTC EKG: Sinus tachycardia with premature atrial complexes, possible Left atrial enlargement. 125 bpm, QTC 473 #HTN Pulm -CXR: rounded density Right base. Could represent nipple or areolar shadow. Nipple marker study suggested. If density does not correspond to areolar or nipple shadow, then a tumor must be considered. Consider CT scan -f/u Chest/thorax CTA GI #GI bleed (hematemesis & bloody stool) -pantoprazole drip @ 8 mg/h -s/p octreotide @ 49.92 mcg/h -s/p one dose ceftriaxone 1 gram for SBP ppx -f/u abdomen/pelvis CTA -EGD overnight showed (1) reflux esophagitis, (2) gastrric bypass, (3) large marginal ulcer at gastroenteric anastamosis with adherent clot and visible vessel. -Dr. Peterson will see patient in AM -GI consult appreciated. stop octreotide. Continue protonix drip. If bleeding continues, will consider transfer to tertiary care that has coagulation spray, so that patient could avoid another surgery, per GI recommendation. Dr. Panda recommended [facility], but it appears that sister prefers [facility] over [facility] at this time per their telephone conversation. Will re- discuss with sister if transfer is needed -patient remains intubated in case urgent intervention is needed. Heme #Anemia 2/2 GI bleed -Hgb/Hct 8.8/27.2 ID -Pt endorses HIV results from outpatient were undetermined. -HIV Ag/Ab NEGATIVE -COVID pending -s/p one dose ceftriaxone 1 gram for SBP ppx Renal No acute issues -BUN/Cr 3.8/0.6 Psych -History of inflicting self harm (cutting herself) when she was a teenager -anxiety: will restart home meds once confirmed. -nicotine patch: 21 mg given patients 1 PPD X 30 Year history DVT PPX -hold AC in setting of GI bleed -SCDs FEN Monitor lytes NPO given GI bleed DISPO Maintain ICU Sharon Larson (sister) [phone] Reina De (aunt) [phone] Dispo: We will continue to follow the patient. Thank you for this consultative opportunity. ATTENDING PHYSICIAN STATEMENT I saw and evaluated the patient. I reviewed the resident's note and discussed the case with the resident. I agree with the resident's findings and plan as documented. SUBJECTIVE: OBJECTIVE: ASSESSMENT AND PLAN:
[2020-06-23] MEDS ORDERED: MIDAZOLAM HCL 2 MG/2 ML SINGLE DOSE VIAL ONE ×2 (00:42→01:35)
[2020-06-23] MEDS ORDERED: DEXAMETHASONE SOD PHOSPHATE 4 MG/1 ML VIAL ONE (00:43)
[2020-06-23] MEDS ORDERED: PROPOFOL 20 ML ONE (00:52)
[2020-06-23] MEDS ORDERED: ROCURONIUM BROMIDE 50 MG/5 ML SYRINGE ONE (01:34)
[2020-06-23] MEDS ORDERED: fentaNYL CITRATE 250 MCG/5 ML VIAL ONE (01:35)
[2020-06-23] MEDS ORDERED: EPINEPHrine 1:10,000 (P-F SYR) 1 MG/10 ML DISP.SYRIN ONE (01:40)
[2020-06-23] MEDS: LACTATED RINGERS SOLUTION 1,000 ML/1,000 ML INFUS.BAG IV SCH (02:07)
--- NOTE | 2020-06-23 02:18 | PN ---
Progress Note (short form) - Note Progress Note: Procedure complete. Report placed in the procedural section of the physical chart and will be scanned into [employer]. Problem List - Problems (1) Hematemesis Code(s): K92.0 - HEMATEMESIS
[2020-06-23] MEDS ORDERED: PROPOFOL 1,000,000 MCG/100 ML VIAL ONE (03:01)
[2020-06-23] MEDS ORDERED: FENTANYL IVPB 500 MCG/100 ML BAG IVPB ONE (03:17)
[2020-06-23] MEDS ORDERED: FENTANYL IVPB 500 MCG/100 ML BAG IVPB SCH (03:30)
[2020-06-23] MEDS ORDERED: MIDAZOLAM IN 0.9 % SOD.CHLORID 1 MG/1 ML PLAST..BAG ONE (03:43)
[2020-06-23] MEDS ORDERED: MIDAZOLAM IN 0.9 % SOD.CHLORID 100 MG/100 ML PLAST..BAG IVPB SCH (03:45)
[2020-06-23] MEDS ORDERED: LORazepam 2 MG/ML SDV VIAL IM ONE (03:57)
[2020-06-23] MEDS ORDERED: LORazepam 2 MG/ML SDV VIAL ONE (03:59)
[2020-06-23] MEDS: PANTOPRAZOLE SODIUM 80 MG in SODIUM CHLORIDE 100 ML IVPB SCH ×4 (04:04→23:15)
[2020-06-23] MEDS: PROPOFOL 1,000,000 MCG/100 ML VIAL IVPB SCH ×2 (04:04→10:31)
[2020-06-23 04:05] LABS: BASO % 0.1 % (0-2.0); HEMOGLOBIN 10.5 GM/dL (10.7-15.3); MCH 31.4 pg (25.7-33.7); MCHC 33.8 g/dl (32.0-36.0); MEAN PLT VOLUME 9.7 fl (7.5-11.1); MONO % 3.7 % (3.8-10.2); NEUT % 92.2 % (42.8-82.8); PLATELET COUNT 176 K/MM3 (134-434); RBC 3.33 M/mm3 (3.60-5.2); WHITE BLOOD COUNT 9.6 K/mm3 (4.0-10.0)
[2020-06-23 04:17] LABS: INR 0.97 (0.83-1.09); PROTHROMBIN TIME (PATIENT) 11.4 SEC (9.7-13.0)
[2020-06-23 04:30] LABS: ALBUMIN 2.6 g/dl (3.4-5.0); BILIRUBIN,TOTAL 0.9 mg/dL (0.2-1); BLOOD UREA NITROGEN 7.4 mg/dL (7-18); CALCIUM 7.7 mg/dL (8.5-10.1); CREATININE 0.5 mg/dL (0.55-1.3); MAGNESIUM 1.9 mg/dL (1.8-2.4); POTASSIUM 3.5 mmol/L (3.5-5.1); TOT PROT 5.8 g/dl (6.4-8.2)
[2020-06-23 04:40] LABS: PHOSPHOROUS 1.2 mg/dL (2.5-4.9)
--- NOTE | 2020-06-23 06:59 | PN ---
Progress Note (short form) - Note Progress Note: Anesthesia Post Op Note Pt s/p GA for EGD Pt remains intubated, sedated and vented awaiting medical management decision from GI/surg VSS no apparent anesthesia complications Sukhjinder CARUSO
[2020-06-23 07:09] LABS: ANISOCYTOSIS 1+; MACROCYTOSIS 0; PLATELET ESTIMATE NORMAL
--- NOTE | 2020-06-23 09:42 | PN ---
Teaching Attending Note Name of Resident: Reshma Dougherty ATTENDING PHYSICIAN STATEMENT I saw and evaluated the patient. I reviewed the resident's note and discussed the case with the resident. I agree with the resident's findings and plan as documented. SUBJECTIVE: Pt seen and examined in the ICU. Remains intubated, sedated. s/p EGD showing large marginal ulcer with visible vessel which was cauterized. OBJECTIVE: Vital Signs Period Temp Pulse Resp BP Sys/Ryan Pulse Ox Last 24 Hr 97.9 F-99.5 F 74-105 14-20 107-195/68-129 99-100 Intake & Output 06/20/20 06/21/20 06/22/20 06/23/20 23:59 23:59 23:59 23:59 Intake Total 800 642 Balance 800 642 Weight 56.064 kg 56.064 kg Gen: intubated, sedated Heart: RRR Lung: decreased breath sounds at the bases Abd: soft, nontender Ext: no edema CBC, BMP 06/23/20 02:45 Active Medications Chlorhexidine Gluconate (Hibiclens For Decolonization -) 1 applic TP HS JEAN MARIE Pantoprazole Sodium 80 mg/ (Sodium Chloride) 100 mls @ 10 mls/hr IVPB Q10H JEAN MARIE Stop: 06/25/20 17:06 Last Admin: 06/23/20 05:00 Dose: 10 mls/hr Documented by: Lactated Ringer's (Lactated Ringers Solution) 1,000 ml in 1,000 mls @ 75 mls/hr IV ASDIR JENA MARIE Last Admin: 06/23/20 02:07 Dose: 75 mls/hr Documented by: Fentanyl (Sublimaze Ivpb) 500 mcg in 100 mls @ 5 mls/hr IVPB TITR JEAN MARIE; Protocol Last Titration: 06/23/20 07:01 Dose: 100 mcg/hr, 20 mls/hr Documented by: Propofol (Diprivan -) 1,000,000 mcg in 100 mls @ 1.682 mls/hr IVPB TITR JEAN MARIE; Protocol Last Titration: 06/23/20 05:00 Dose: 50 mcg/kg/min, 16.819 mls/hr Documented by: Midazolam HCl (Midazolam 100mg/100ml-0.9%Nacl) 100 mg in 100 mls @ 1 mls/hr IVPB TITR JEAN MARIE; Protocol Last Infusion: 06/23/20 07:01 Dose: 5 mg/hr, 5 mls/hr Documented by: Mupirocin (Bactroban Ointment (For Decolonization) -) 1 applic NS BID [facility] Stop: 06/27/20 22:44 Last Admin: 06/22/20 23:30 Dose: Not Given Documented by: Nicotine (Nicoderm Patch -) 21 mg TD DAILY [facility] ASSESSMENT AND PLAN: Upper GI Bleed from Marginal Ulcer Acute Blood Loss Anemia h/o Gastric Bypass HTN Asthma RA GERD Anxiety/Depression Smoker - continue protonix - monitor H/H - transfuse as needed - lighten sedation if H/H stable and wean to extubate - d/w GI, recommends transfer to tertiary medical center due to high rebleeding risk - DVT prophylaxis - continue ICU monitoring critical care time spent in reviewing chart, evaluating patient and formulating plan 35 min
--- NOTE | 2020-06-23 09:56 | PN.GI ---
GI Progress Note Subjective: No acute events 1 dark BM s/p EGD w/ injection therapy Remains stable hemodynamically - Objective Vital Signs: Vital Signs Temperature 98.5 F 06/23/20 06:00 Pulse Rate 85 06/23/20 08:00 Respiratory Rate 14 06/23/20 08:53 Blood Pressure 107/74 06/23/20 08:00 O2 Sat by Pulse Oximetry (%) 100 06/23/20 08:53 Constitutional: Calm Eyes: No: Sclera Icterus Cardiovascular: Yes: Regular Rate and Rhythm Respiratory: Yes: Diminished (at bases bilaterally with poor insp effort) Gastrointestinal Inspection: No: Distention ...Auscultate: Yes: Normoactive Bowel Sounds ...Palpate: Yes: Soft. No: Tenderness (No grimacing upon palpation) ...Percussion: No: Tympanitic Edema: No (No LE edema) Neurological: Yes: Other (Intubated/Sedated) Labs: CBC, BMP 06/23/20 02:45 INR, PTT INR 0.97 (0.83-1.09) 06/23/20 02:45 Hepatic Panel Total Bilirubin 0.9 mg/dL (0.2-1) 06/23/20 02:45 AST 17 U/L (15-37) 06/23/20 02:45 ALT 15 U/L (13-61) 06/23/20 02:45 Alkaline Phosphatase 75 U/L (45-117) 06/23/20 02:45 Albumin 2.6 g/dl (3.4-5.0) L 06/23/20 02:45 Problem List - Problems (1) Hematemesis Assessment/Plan: Secondary to large marginal ulcer with visible vessel s/p EGD with heater probe therapy / epinephrine injection Currently stable High risk for rebleed. Discussed case with advanced endoscopist Dr. Zina Gonzalez @ [facility]. Agreed with transfer to [facility] for coninued monitoring / alternate en doscopic therapies if rebleeding occurs. I have a clinical update and discussed above plan with her sister Ruth and brother Zachariah via telephone this morning. They were in agreement with the rodriguez sfer. I did explain that Ms. Michel will need to stop smoking as this is a strong contributing factor for marginal ulcer formation and poor ulcer healing. Explained that Ms. Michel could ultimately need surgical revision of her gastric bypass. For now: Monitor H/H keep Hgb >7 Cotninue protonix infusion @ 8mg/hr Code(s): K92.0 - HEMATEMESIS
[2020-06-23] MEDS ORDERED: PT OWN MED DRAWER 7, Y5N ONE ×2 (09:58→16:38)
--- NOTE | 2020-06-23 10:10 | PN ---
Physical Exam: Patient seen and examined at bedside. She is being managed for hematemesis x 1week with a reduction in hb from 12 to 8.8. 1 unit of blood ordered. She has been extubated this am. Abd CT reports marginal ulcer with a visible cauterized vessel. Patient no longer having hematemesis but still passing black stool. Discussion is ongoing for patient to be transferred to [facility]. Dr. Rondon has spoken with Dr. Zina Gonzalez, one of the senior utility lineman in [facility], who have agreed that the patient sh ould be transferred . Dr. Lares who is the hospitalist net applications developer would be accepting the patient but would like to speak with Dr. Zina Gonzalez and also have the patient physically in Med Surg bed before we can proceed with the transfer process. CALL [facility] ON [phone] once patient is on Med Surg floor. They are unable to proceed with the transfer unless patient is physically in bed on med surg floor OBJECTIVE: Patient sitting up in bed and using her phone. Vital Signs Period Temp Pulse Resp BP Sys/Ryan Pulse Ox Last 24 Hr 97.9 F-99.5 F 74-105 14-20 107-195/68-129 99-100 GENERAL: Patient has been extubated. Awake and oriented. Concerned about reintubation. Said she was in pain and would prefer a DNR than a repeat of similar pain. HEAD: Normal with no signs of trauma, mild frontal baldness. EYES: Exopthalmus, anicteric, ?? lid lag ENT: : Ears normal, nares patent, oropharynx clear without exudates. Moist mucous membranes. NECK: Trachea midline, no lymphadenopathy. No masses or raised JVP. LUNGS: B/L clear breath sounds on auscultation. No wheezes, no crackles, no accessory muscle use. HEART: S1, S2 RRR without murmur, rub or gallop. ABDOMEN: Soft, nontender, nondistended, normoactive bowel sounds, no guarding, no rebound, no hepatosplenomegaly, no masses. EXTREMITIES: 2+ pulses, warm, well-perfused, no edema. NEUROLOGICAL:AAOX3 SKIN: Warm, dry, normal turgor, no rashes or lesions noted Laboratory Results - last 24 hr 06/22/20 06/22/20 06/22/20 16:00 16:00 16:00 WBC 1.5 L* RBC 1.76 L Hgb 5.6 L* Hct 17.6 L D MCV 100.5 H MCH 31.9 MCHC 31.8 L RDW 17.6 H Plt Count 159 D MPV 9.3 Absolute Neuts (auto) 0.6 L Neutrophils % 42.5 L D Neutrophils % (Manual) 46.1 Band Neutrophils % 0.9 Lymphocytes % 37.6 D Lymphocytes % (Manual) 47.9 H Monocytes % 18.9 H Monocytes % (Manual) 5 Eosinophils % 0.3 Eosinophils % (Manual) 0.0 Basophils % 0.7 Basophils % (Manual) 0.0 Myelocytes % (Man) 0 Promyelocytes % (Man) 0 Blast Cells % (Manual) 0 Nucleated RBC % 2 H Metamyelocytes 0 Hypochromia 1+ Platelet Estimate Decreased Polychromasia 1+ Poikilocytosis 1+ Anisocytosis 1+ Microcytosis 1+ Macrocytosis 1+ Ovalocytes 1+ Melville Cells 1+ Acanthocytes (Spur) 1+ Fragmented RBCs 1+ Schistocytes 1+ PT with INR 11.90 INR 1.01 PTT (Actin FS) 23.8 L Sodium 137 Potassium 3.9 Chloride 108 H Carbon Dioxide 20 L Anion Gap 8 BUN 3.0 L Creatinine 0.6 Est GFR (CKD-EPI)AfAm 128.48 Est GFR (CKD-EPI)NonAf 110.86 POC Glucometer Random Glucose 194 H Lactic Acid Calcium 8.0 L Phosphorus Magnesium Total Bilirubin 0.3 AST 29 ALT 16 Alkaline Phosphatase 84 Creatine Kinase Troponin I < 0.02 Total Protein 6.2 L Albumin 2.5 L Lipase 122 Serum , Qual HIV Ag/Ab Combo Qual SARS-CoV-2 (PCR) Blood Type Antibody Screen Crossmatch 06/22/20 06/22/20 06/22/20 16:00 16:00 16:52 WBC RBC Hgb Hct MCV MCH MCHC RDW Plt Count MPV Absolute Neuts (auto) Neutrophils % Neutrophils % (Manual) Band Neutrophils % Lymphocytes % Lymphocytes % (Manual) Monocytes % Monocytes % (Manual) Eosinophils % Eosinophils % (Manual) Basophils % Basophils % (Manual) Myelocytes % (Man) Promyelocytes % (Man) Blast Cells % (Manual) Nucleated RBC % Metamyelocytes Hypochromia Platelet Estimate Polychromasia Poikilocytosis Anisocytosis Microcytosis Macrocytosis Ovalocytes Ion Cells Acanthocytes (Spur) Fragmented RBCs Schistocytes PT with INR INR PTT (Actin FS) Sodium Potassium Chloride Carbon Dioxide Anion Gap BUN Creatinine Est GFR (CKD-EPI)AfAm Est GFR (CKD-EPI)NonAf POC Glucometer 151 Random Glucose Lactic Acid 2.9 H* Calcium Phosphorus Magnesium Total Bilirubin AST ALT Alkaline Phosphatase Creatine Kinase Troponin I Total Protein Albumin Lipase Serum , Qual HIV Ag/Ab Combo Qual SARS-CoV-2 (PCR) Blood Type Cancelled Antibody Screen Cancelled Crossmatch 06/22/20 06/22/20 06/22/20 17:34 17:34 17:34 WBC 10.8 H RBC 2.76 L Hgb 8.8 L Hct 27.2 L D MCV 98.6 H MCH 31.8 MCHC 32.2 RDW 17.4 H Plt Count 248 D MPV 9.4 Absolute Neuts (auto) 9.5 H Neutrophils % 88.3 H D Neutrophils % (Manual) Band Neutrophils % Lymphocytes % 3.7 L D Lymphocytes % (Manual) Monocytes % 7.1 Monocytes % (Manual) Eosinophils % 0.4 Eosinophils % (Manual) Basophils % 0.5 Basophils % (Manual) Myelocytes % (Man) Promyelocytes % (Man) Blast Cells % (Manual) Nucleated RBC % 0 Metamyelocytes Hypochromia Platelet Estimate Polychromasia Poikilocytosis Anisocytosis Microcytosis Macrocytosis Ovalocytes Melville Cells Acanthocytes (Spur) Fragmented RBCs Schistocytes PT with INR INR PTT (Actin FS) Sodium Potassium Chloride Carbon Dioxide Anion Gap BUN Creatinine Est GFR (CKD-EPI)AfAm Est GFR (CKD-EPI)NonAf POC Glucometer Random Glucose Lactic Acid Calcium Phosphorus Magnesium Total Bilirubin AST ALT Alkaline Phosphatase Creatine Kinase Troponin I Total Protein Albumin Lipase Serum , Qual HIV Ag/Ab Combo Qual Negative SARS-CoV-2 (PCR) Blood Type A POSITIVE Antibody Screen Negative Crossmatch See Detail 06/22/20 06/22/20 06/22/20 17:34 17:34 21:11 WBC RBC Hgb Hct MCV MCH MCHC RDW Plt Count MPV Absolute Neuts (auto) Neutrophils % Neutrophils % (Manual) Band Neutrophils % Lymphocytes % Lymphocytes % (Manual) Monocytes % Monocytes % (Manual) Eosinophils % Eosinophils % (Manual) Basophils % Basophils % (Manual) Myelocytes % (Man) Promyelocytes % (Man) Blast Cells % (Manual) Nucleated RBC % Metamyelocytes Hypochromia Platelet Estimate Polychromasia Poikilocytosis Anisocytosis Microcytosis Macrocytosis Ovalocytes Ion Cells Acanthocytes (Spur) Fragmented RBCs Schistocytes PT with INR INR PTT (Actin FS) Sodium 139 Potassium 3.2 L Chloride 106 Carbon Dioxide 25 Anion Gap 8 BUN 3.8 L Creatinine 0.6 Est GFR (CKD-EPI)AfAm 128.48 Est GFR (CKD-EPI)NonAf 110.86 POC Glucometer Random Glucose 134 H Lactic Acid Calcium 7.7 L Phosphorus 1.6 L Magnesium 1.6 L Total Bilirubin 0.1 L AST 14 L ALT 13 Alkaline Phosphatase 76 Creatine Kinase 23 L Troponin I 0.02 Total Protein 5.5 L Albumin 2.3 L Lipase 119 Serum , Qual Negative HIV Ag/Ab Combo Qual SARS-CoV-2 (PCR) Negative Blood Type Antibody Screen Crossmatch 06/23/20 06/23/20 06/23/20 02:45 02:45 02:45 WBC RBC Hgb Hct MCV MCH MCHC RDW Plt Count MPV Absolute Neuts (auto) Neutrophils % Neutrophils % (Manual) Band Neutrophils % Lymphocytes % Lymphocytes % (Manual) Monocytes % Monocytes % (Manual) Eosinophils % Eosinophils % (Manual) Basophils % Basophils % (Manual) Myelocytes % (Man) Promyelocytes % (Man) Blast Cells % (Manual) Nucleated RBC % Metamyelocytes Hypochromia Platelet Estimate Polychromasia Poikilocytosis Anisocytosis Microcytosis Macrocytosis Ovalocytes Melville Cells Acanthocytes (Spur) Fragmented RBCs Schistocytes PT with INR 11.40 INR 0.97 PTT (Actin FS) Sodium 138 Potassium 3.5 Chloride 107 Carbon Dioxide 24 Anion Gap 7 L BUN 7.4 Creatinine 0.5 L Est GFR (CKD-EPI)AfAm 136.42 Est GFR (CKD-EPI)NonAf 117.71 POC Glucometer Random Glucose 192 H Lactic Acid 1.7 Calcium 7.7 L Phosphorus 1.2 L Magnesium 1.9 Total Bilirubin 0.9 AST 17 ALT 15 Alkaline Phosphatase 75 Creatine Kinase Troponin I Total Protein 5.8 L Albumin 2.6 L Lipase Serum , Qual HIV Ag/Ab Combo Qual SARS-CoV-2 (PCR) Blood Type Antibody Screen Crossmatch 06/23/20 02:45 WBC 9.6 RBC 3.33 L Hgb 10.5 L Hct 31.0 L MCV 93.0 MCH 31.4 MCHC 33.8 RDW 18.0 H Plt Count 176 D MPV 9.7 Absolute Neuts (auto) 8.9 H Neutrophils % 92.2 H Neutrophils % (Manual) 90.1 H Band Neutrophils % 0.0 Lymphocytes % 4.0 L Lymphocytes % (Manual) 5.9 L D Monocytes % 3.7 L Monocytes % (Manual) 4 Eosinophils % 0.0 D Eosinophils % (Manual) 0.0 Basophils % 0.1 Basophils % (Manual) 0.0 Myelocytes % (Man) 0 Promyelocytes % (Man) 0 Blast Cells % (Manual) 0 Nucleated RBC % 0 Metamyelocytes 0 Hypochromia 1+ Platelet Estimate Normal Polychromasia 0 Poikilocytosis 1+ Anisocytosis 1+ Microcytosis 1+ Macrocytosis 0 Ovalocytes Ion Cells Acanthocytes (Spur) Fragmented RBCs Schistocytes PT with INR INR PTT (Actin FS) Sodium Potassium Chloride Carbon Dioxide Anion Gap BUN Creatinine Est GFR (CKD-EPI)AfAm Est GFR (CKD-EPI)NonAf POC Glucometer Random Glucose Lactic Acid Calcium Phosphorus Magnesium Total Bilirubin AST ALT Alkaline Phosphatase Creatine Kinase Troponin I Total Protein Albumin Lipase Serum , Qual HIV Ag/Ab Combo Qual SARS-CoV-2 (PCR) Blood Type Antibody Screen Crossmatch Active Medications Generic Name Dose Route Start Last Admin Trade Name Freq PRN Reason Stop Dose Admin Chlorhexidine Gluconate 1 applic 06/23/20 22:00 Hibiclens For Decolonization - TP HS JEAN MARIE Pantoprazole Sodium 80 mg/ 100 mls @ 10 mls/hr 06/22/20 17:15 06/23/20 05:00 Sodium Chloride IVPB 06/25/20 17:06 10 mls/hr Q10H JEAN MARIE Administration 8 MG/HR Lactated Ringer's 1,000 ml in 1,000 mls @ 75 mls/hr 06/23/20 00:15 06/23/20 02:07 Lactated Ringers Solution IV 75 mls/hr ASDIR JEAN MARIE Administration Fentanyl 500 mcg in 100 mls @ 5 mls/hr 06/23/20 03:30 06/23/20 07:01 Sublimaze Ivpb IVPB 100 mcg/hr TITR JEAN MARIE 20 mls/hr Titration Protocol 25 MCG/HR Propofol 1,000,000 mcg in 100 mls @ 1.682 mls/hr 06/23/20 03:30 06/23/20 05:00 Diprivan - IVPB 50 mcg/kg/min TITR JEAN MARIE 16.819 mls/hr Titration Protocol 5 MCG/KG/MIN Midazolam HCl 100 mg in 100 mls @ 1 mls/hr 06/23/20 03:45 06/23/20 07:01 Midazolam 100mg/100ml-0.9%Nacl IVPB 5 mg/hr TITR JEAN MARIE 5 mls/hr Infusion Protocol 1 MG/HR Mupirocin 1 applic 06/22/20 22:45 06/22/20 23:30 Bactroban Ointment (For Decolonization) - NS 06/27/20 22:44 Not Given BID JEAN MARIE Nicotine 21 mg 06/23/20 10:00 Nicoderm Patch - TD DAILY JEAN MARIE ASSESSMENT/PLAN: ASSESSMENT/PLAN: 45 YO F with PMH HTN, rheumatoid arthritis, asthma, depression/anxiety, GERD, SBO (09/2019), sleeve gastrectomy, gastric bypass, 3x abdominoplasty, 2x liposuction, SBO w/internal hernia repair (01/2019) being managed for hematemesis and bloody stool. Admitted to ICU for monitoring hemodynamic stability. Neuro AAOX3 Cardio Trop I: 0.02 #Prolonged QTC EKG: Sinus tachycardia with PAC, possible Left atrial enlargement. 125 bpm, QTC 473 Chronic HTN hugh currently normotensive without home meds Pulmonary -CXR: No consolidation seen. Rounded density observed in Right base.Likely nipple or areolar shadow. Nipple marker study suggested. If density does not correspond to areolar or nipple shadow, consider CT scan to R/O a tumor -Chest/thorax CTA: No CT evidence of pulmonary embolism. 0.8 cm right lower lobe subpleural nodule is not significantly changed compared to prior study. GI #GI bleed 2/2 marginal ulcer: Hematemesis has stopped but patient still passing black stool -Continue Pantoprazole drip @ 8 mg/h -D/C octreotide @ 49.92 mcg/h -Endoscopy 06/22/20 showed marginal ulcer with visible vessel that was cauterized -Dr Rondon discussed case with advanced endoscopist Dr. Zina Gonzalez @ [facility]. She has greed with transfer to [facility] for coninued monitoring / alternate endoscopic therapies if rebleeding occurs. Heme: #Anemia: 2/2 GI bleed -Hgb/Hct 06/23/2020: 8.8/27.2 ID -Pt states HIV results from outpatient were undetermined. -HIV Ag/Ab NEGATIVE -COVID negative -Ceftriaxone 1 gram given for SBP ppx - Repeat CBC Q8H Renal: -BUN/Cr 7.4/0.5 -Psych: Hx of self harm as a teenager -History of inflicting self harm (cutting herself) when she was a teenager -Nicotine patch: 21 mg given patients 1 pkt daily consumption DVT PPX -hold AC in setting of GI bleed -SCDs FEN: Monitor lytes: Repeat requested NPO given GI bleed DISPO Patient has been extubated. AAOX3 Downgrade to Med Surg Patient marginal ulcer with visible vessel is high risk for rebleed. Transfer to [facility] in progress. Sharon Larson (sister) [phone] Reina De (aunt) [phone] Unable to reconcile home meds. Called Jenn with my [facility] resident but they were closed including the 24hrs in the [place] Visit type - Emergency Visit Emergency Visit: No - New Patient This patient is new to me today: Yes Date on this admission: 06/23/20 - Critical Care Critical Care patient: Yes Total Critical Care Time (in minutes): 40 Critical Care Statement: The care of this patient involved high complexity decision making to prevent further life threatening deterioration of the patient's condition and/or to evaluate & treat vital organ system(s) failure or risk of failure. ATTENDING PHYSICIAN STATEMENT I saw and evaluated the patient. I reviewed the resident's note and discussed the case with the resident. I agree with the resident's findings and plan as documented. SUBJECTIVE: OBJECTIVE: ASSESSMENT AND PLAN:
[2020-06-23 10:23] LABS: BASO % 0.5 % (0-2.0); HEMATOCRIT 29.2 % (32.4-45.2); HEMOGLOBIN 9.8 GM/dL (10.7-15.3); LYMPH % 9.8 % (8-40); MCH 30.6 pg (25.7-33.7); MCHC 33.4 g/dl (32.0-36.0); MEAN CELL VOLUME 91.8 fl (80-96); MEAN PLT VOLUME 9.8 fl (7.5-11.1); MONO % 5.8 % (3.8-10.2); NEUT % 83.9 % (42.8-82.8); PLATELET COUNT 185 K/MM3 (134-434); RBC 3.19 M/mm3 (3.60-5.2); RDW 19.2 % (11.6-15.6); WHITE BLOOD COUNT 8.3 K/mm3 (4.0-10.0)
[2020-06-23] MEDS: MUPIROCIN 2% TOPICAL OINTMENT FOR DECOLONIZATION NS SCH ×2 (10:26→21:25)
[2020-06-23] MEDS: NICOTINE 21 MG/24 HOURS TOPICAL PATCH TD SCH (10:26)
[2020-06-23 10:56] LABS: HEMATOCRIT 25.4 % (32.4-45.2); HEMOGLOBIN 8.9 GM/dL (10.7-15.3); MCH 32.3 pg (25.7-33.7); MCHC 35.1 g/dl (32.0-36.0); MEAN CELL VOLUME 92.1 fl (80-96); MEAN PLT VOLUME 9.4 fl (7.5-11.1); PLATELET COUNT 164 K/MM3 (134-434); RBC 2.76 M/mm3 (3.60-5.2); RDW 18.9 % (11.6-15.6); WHITE BLOOD COUNT 7.4 K/mm3 (4.0-10.0)
--- NOTE | 2020-06-23 15:11 | EKG ---
Test Reason : Blood Pressure : / mmHG Vent. Rate : 107 BPM Atrial Rate : 107 BPM P-R Int : 152 ms QRS Dur : 070 ms QT Int : 366 ms P-R-T Axes : 000 -34 -72 degrees QTc Int : 488 ms POOR DATA QUALITY, INTERPRETATION MAY BE ADVERSELY AFFECTED SINUS TACHYCARDIA LEFT AXIS DEVIATION ABNORMAL ECG WHEN COMPARED WITH ECG OF 16-MAY-2020 20:30, SIGNIFICANT CHANGES HAVE OCCURRED Confirmed by MD Xavier, Tristan ([id number]) on 06/23/2020 3:10:34 PM Referred By: MD BLACKWELL Confirmed By:Tristan Park MD
[2020-06-23] MEDS ORDERED: LORazepam 1 MG TABLET PO PRN (16:54)
[2020-06-23] MEDS ORDERED: LORazepam 0.5 MG TABLET PO ONE (17:06)
--- NOTE | 2020-06-23 17:59 | PN ---
Progress Note (short form) - Note Progress Note: 45 y.o women 18 months S/P Laparoscopic Gastric Bypass after previous gastric sleeve. Pt presents 06/22 with severe epigastric pain and hematemesis. Recent Barium Swallow showed probable anastomotic ulcer. EGD by Dr Panda showed visible ulcer which was heater probed and injected. No further hematemesis noted, but patient continues with bloody stools (maroon). Pt also states pain intermittent but no vomiting. Patient c/o being hungry. V/S:BP-147/100, P-76; R-14 P/E- Gen- Awake, alert, NAD Abd- non-distended tender on palpation in epigastrium WBC-7.4 H/H-8.9/25.4 (slight decrease) I- Bleeding Gastro-jejunal anastomotic ulcer S/P Gastric Bypass Rec- NPO Moniter H/H, labs Agree with transfer to [facility] for further management WIll follow
[2020-06-23] MEDS ORDERED: MORPHINE SULFATE 2 MG/ML VIAL IM SCH (18:45)
[2020-06-23 19:08] LABS: BASO % 2.2 % (0-2.0); EOS % 0.5 % (0-4.5); HEMATOCRIT 31.6 % (32.4-45.2); HEMOGLOBIN 10.4 GM/dL (10.7-15.3); LYMPH % 17.3 % (8-40); MCH 30.3 pg (25.7-33.7); MEAN CELL VOLUME 91.6 fl (80-96); MEAN PLT VOLUME 8.9 fl (7.5-11.1); MONO % 5.9 % (3.8-10.2); NEUT % 74.1 % (42.8-82.8); PLATELET COUNT 211 K/MM3 (134-434); RBC 3.45 M/mm3 (3.60-5.2); RDW 19.2 % (11.6-15.6)
[2020-06-23] MEDS ORDERED: DEXTROSE 5%-0.45% SALINE 1,000 ML IV SCH (20:00)
[2020-06-23] MEDS ORDERED: LORazepam 2 MG/ML SDV VIAL IVPUSH PRN (20:28)
--- NOTE | 2020-06-23 20:57 | PN ---
Progress Note (short form) - Note Progress Note: Called to bedside by nurse nigel patient wants her Etanercept. Discussed with her that we do not carry it. Pt will call her family member to bring it in for administration. Will recheck once family comes.
[2020-06-23] MEDS: BENZOCAINE/MENTH/CETYLPYRD CL 1 EACH LOZENGE MM PRN (21:26)
[2020-06-23] MEDS ORDERED: CHLORHEXIDINE GLUCONATE 4% CLEANSER FOR DECOLONIZATION TP SCH (22:00)
[2020-06-23] MEDS: MORPHINE SULFATE 2 MG/ML VIAL IVPUSH PRN (22:35)
[2020-06-24] MEDS: LACTATED RINGERS SOLUTION 1,000 ML/1,000 ML INFUS.BAG IV SCH (00:15)
--- NOTE | 2020-06-24 01:51 | PN ---
Progress Note (short form) - Note Progress Note: Pt's family member brought in the Etanercept. Pharmacy requires that we call the pharmacy to verify the dose before we can administer it. Pt medicine is stored in the fridge until we can verify.
[2020-06-24] MEDS: BENZOCAINE/MENTH/CETYLPYRD CL 1 EACH LOZENGE MM PRN ×3 (02:50→22:30)
[2020-06-24] MEDS: MORPHINE SULFATE 2 MG/ML VIAL IVPUSH PRN ×3 (05:13→22:50)
[2020-06-24 06:40] LABS: HEMATOCRIT 28.3 % (32.4-45.2); HEMOGLOBIN 9.6 GM/dL (10.7-15.3); MCHC 33.9 g/dl (32.0-36.0); MEAN CELL VOLUME 91.4 fl (80-96); MEAN PLT VOLUME 9.1 fl (7.5-11.1); PLATELET COUNT 205 K/MM3 (134-434); RBC 3.09 M/mm3 (3.60-5.2); RDW 19.2 % (11.6-15.6)
[2020-06-24 07:11] LABS: CALCIUM 8.2 mg/dL (8.5-10.1); CREATININE 0.4 mg/dL (0.55-1.3); MAGNESIUM 1.6 mg/dL (1.8-2.4); PHOSPHOROUS 1.2 mg/dL (2.5-4.9)
[2020-06-24 07:21] LABS: BLOOD UREA NITROGEN 2.4 mg/dL (7-18)
[2020-06-24] MEDS ORDERED: MAGNESIUM SULF 50% (8.12 MEQ/2 ML-1 GM VIAL) IVPB ONE (08:00)
[2020-06-24] MEDS ORDERED: POTASSIUM CHLORIDE TABS 20 MEQ TABLET.ER (FP) PO ONE (08:10)
[2020-06-24] MEDS ORDERED: KCL 10 MEQ IVPB 10 MEQ/100 ML INFUS.BAG IVPB SCH ×3 (08:15→09:30)
--- NOTE | 2020-06-24 09:11 | PN.GI ---
GI Progress Note Subjective: No further maroon rectal bleeding. Passage of some dark BM's Complains of predominantly lower abdominal pain - Objective Vital Signs: Vital Signs Temperature 98.5 F 06/24/20 06:00 Pulse Rate 61 06/24/20 06:00 Respiratory Rate 12 06/24/20 06:00 Blood Pressure 146/92 06/24/20 06:00 O2 Sat by Pulse Oximetry (%) 99 06/24/20 06:00 Constitutional: Calm Eyes: No: Sclera Icterus Cardiovascular: Yes: Regular Rate and Rhythm Respiratory: Yes: CTA Bilaterally Gastrointestinal Inspection: No: Distention ...Auscultate: Yes: Normoactive Bowel Sounds ...Palpate: Yes: Soft, Tenderness (diffusely) ...Percussion: No: Tympanitic Edema: No (No LE edema) Neurological: Yes: Alert Labs: CBC, BMP 06/24/20 05:36 06/24/20 05:36 INR, PTT INR 0.97 (0.83-1.09) 06/23/20 02:45 Hepatic Panel Total Bilirubin 0.9 mg/dL (0.2-1) 06/23/20 02:45 AST 17 U/L (15-37) 06/23/20 02:45 ALT 15 U/L (13-61) 06/23/20 02:45 Alkaline Phosphatase 75 U/L (45-117) 06/23/20 02:45 Albumin 2.6 g/dl (3.4-5.0) L 06/23/20 02:45 Problem List - Problems (1) Hematemesis Assessment/Plan: Remains hemodynamically stable. Passage of some loose black BM. Suspect passage of old blood Ordered non contrast CT scan of the abdomen and pelvis Continue PPI drip Monitor H/H NPO for now. IV hydration per primary team Correct lytes Awaiting transfer to [facility] Code(s): K92.0 - HEMATEMESIS
[2020-06-24] MEDS ORDERED: POTASSIUM PHOSPHATE 30 MM in SODIUM CHLORIDE 250 ML IVPB ONE (09:30)
[2020-06-24] MEDS: NICOTINE 21 MG/24 HOURS TOPICAL PATCH TD SCH (09:38)
[2020-06-24] MEDS: DEXTROSE 5%-LACTATED RINGERS 1,000 ML IV SCH (09:39)
[2020-06-24] MEDS: MUPIROCIN 2% TOPICAL OINTMENT FOR DECOLONIZATION NS SCH (09:46)
[2020-06-24] MEDS: KCL 10 MEQ IVPB 10 MEQ/100 ML INFUS.BAG IVPB SCH ×2 (10:48→14:04)
--- NOTE | 2020-06-24 10:51 | PN ---
Teaching Attending Note Name of Resident: Chas Mann ATTENDING PHYSICIAN STATEMENT I saw and evaluated the patient. I reviewed the resident's note and discussed the case with the resident. I agree with the resident's findings and plan as documented. SUBJECTIVE: Pt seen and examined in the ICU. Extubated yesterday. Still some dark stools ove rnight and reports abdominal pain. OBJECTIVE: Vital Signs Period Temp Pulse Resp BP Sys/Ryan Pulse Ox Last 24 Hr 98.2 F-98.5 F 61-79 12-19 117-160/86-143 95-100 Intake & Output 06/21/20 06/22/20 06/23/20 06/24/20 23:59 23:59 23:59 23:59 Intake Total 800 942 680 Balance 800 942 680 Weight 56.064 kg 56.064 kg 58.967 kg Gen: NAD at rest Heart: RRR Lung: decreased breath sounds at the bases Abd: soft, nontender Ext: no edema CBC, BMP 06/24/20 05:36 06/24/20 05:36 Active Medications Benzocaine/Menthol (Cepacol Lozenge -) 1 each MM Q2H PRN PRN Reason: SORE THROAT Last Admin: 06/24/20 08:00 Dose: 1 each Documented by: Chlorhexidine Gluconate (Hibiclens For Decolonization -) 1 applic TP HS [facility] Last Admin: 06/23/20 21:24 Dose: 1 applic Documented by: Pantoprazole Sodium 80 mg/ (Sodium Chloride) 100 mls @ 10 mls/hr IVPB Q10H [facility] Stop: 06/25/20 17:06 Last Admin: 06/23/20 23:15 Dose: Not Given Documented by: Dextrose/Lactated Ringer's (D5-Lr -) 1,000 mls @ 75 mls/hr IV ASDIR [facility] Last Admin: 06/24/20 09:39 Dose: 75 mls/hr Documented by: Potassium Chloride (Potassium Chloride 10 Meq Premix Ivpb -) 10 meq in 100 mls @ 100 mls/hr IVPB Q60M [facility] Stop: 06/24/20 11:59 Last Admin: 06/24/20 10:48 Dose: 100 mls/hr Documented by: Sodium Phosphate 30 mm/ Sodium (Chloride) 260 mls @ 62.5 mls/hr IVPB ONCE ONE Stop: 06/24/20 14:36 Lorazepam (Ativan Injection -) 0.5 mg IVPUSH ONCE PRN PRN Reason: ANXIETY Lorazepam (Ativan Injection -) 1 mg IVPUSH Q6H PRN PRN Reason: ANXIETY Morphine Sulfate (Morphine Sulfate) 1 mg IVPUSH Q4H PRN PRN Reason: PAIN LEVEL 1-5 Last Admin: 06/24/20 05:13 Dose: 1 mg Documented by: Mupirocin (Bactroban Ointment (For Decolonization) -) 1 applic NS BID [facility] Stop: 06/27/20 22:44 Last Admin: 06/24/20 09:46 Dose: 1 applic Documented by: Nicotine (Nicoderm Patch -) 21 mg TD DAILY [facility] Last Admin: 06/24/20 09:38 Dose: 21 mg Documented by: ASSESSMENT AND PLAN: Upper GI Bleed from Marginal Ulcer Acute Blood Loss Anemia h/o Gastric Bypass HTN Asthma RA GERD Anxiety/Depression Smoker - continue protonix - monitor H/H - transfuse as needed - replete lytes - NPO - awaiting transfer to [facility] due to high rebleeding risk - DVT prophylaxis
--- NOTE | 2020-06-24 10:56 | HOSP ---
Subjective - Review of Symptoms Gastrointestinal: Yes: Abdominal Pain (diffuse ) Physical Examination Vital Signs: Vital Signs Temperature 98.5 F 06/24/20 06:00 Pulse Rate 61 06/24/20 06:00 Respiratory Rate 12 06/24/20 06:00 Blood Pressure 146/92 06/24/20 06:00 O2 Sat by Pulse Oximetry (%) 99 06/24/20 06:00 Constitutional: Yes: No Distress Eyes: Yes: Other (exopthalmus) HENT: Yes: Atraumatic, Normocephalic Cardiovascular: Yes: Regular Rate and Rhythm, S1, S2 Respiratory: Yes: Regular, CTA Bilaterally Gastrointestinal: Yes: Normal Bowel Sounds, Tenderness (diffuse) Extremities: Yes: Other (linear lesions on Left arm from self inflicted injury as teenager) Labs: CBC, BMP 06/24/20 05:36 06/24/20 05:36 Hospitalist Encounter Assessment: 45 YO F with PMH HTN, rheumatoid arthritis, asthma, depression/anxiety, GERD, SBO (09/2019), sleeve gastrectomy, gastric bypass, 3x abdominoplasty, 2x liposuction, SBO w/internal hernia repair (01/2019) was BIBA for hematemesis for one week that worsened since yesterday. She had episodes of hematemesis at the beginning of the week and went to urgent care that sent her to ED. She has gone to the ED between [facility] every other day for hematemesis associated with abdominal & chest pain. During those visits, she was given medication for nausea and pain and then sent home. However, she had an increased frequency and volume of bloody vomit beginning yesterday. Her diffuse abdominal and sharp chest pain is associated with vomiting. Heating pads did not improve her pain. Denies taking blood thinners or aspirin. Denies lightheadedness, dizziness, syncope, SOB, diarrhea. On arrival to ED, patient had a bag of 300 mL of bright red blood. After the patient received zofran, she did not have further episodes of vomiting. In the ED, She was also started on ceftriaxone, octreotide, and protonix bolus & drip. Hgb came back as 5.6, but that value was hemolyzed. Repeat Hbg was 8.8, which was greatly reduced from the Hgb level of 12 the previous night. One unit of PRBCs was ordered. Since then, patient had 4 dark red stools. EGD overnight showed large marginal ulcer at gastroenteric anastamosis with adherent clot and visible vessel. Abd/Pelvis CTA shows no active arterial extravsation to suggest GI hemorrhage. After EGD, octreotdie drip was stopped and pantoprazole drip was continued at 8 mg/h. Patient continues to have dark stool. Dr. Rondon discussed with Dr. Zina Gonzalez a amr physician at [facility], who agreed that patient should be transferred. Dr. Lares was the hospitalist hand expansion envelope maker yesterday. Dr. Gardner is the hopsitalist for [facility]. Patient needs to be on med-surg floor before the transfer to [facility] can proceed. Once patient is on med surg floor physically, team will call [facility] transfer center at [phone]. Visit type - Emergency Visit Emergency Visit: Yes ED Registration Date: 06/22/20 Care time: The patient presented to the Emergency Department on the above date and was hospitalized for further evaluation of their emergent condition. - New Patient This patient is new to me today: No - Critical Care Critical Care patient: No
--- NOTE | 2020-06-24 11:21 | PN ---
Progress Note (short form) - Note Progress Note: 45 YO F with PMH HTN, rheumatoid arthritis, asthma, depression/anxiety, GERD, SBO (09/2019), sleeve gastrectomy, gastric bypass, 3x abdominoplasty, 2x liposuction, SBO w/internal hernia repair (01/2019) who was admitted to the ICU for hemetemesis and hemodynamic instability. Patient is being transferred to [facility] for alternative endoscopic imaging techniques. HGB and vitals stable, patient stable to be downgraded. Vital Signs Temperature 98.5 F 06/24/20 06:00 Pulse Rate 61 06/24/20 06:00 Respiratory Rate 12 06/24/20 06:00 Blood Pressure 146/92 06/24/20 06:00 O2 Sat by Pulse Oximetry (%) 99 06/24/20 06:00 Physical Exam: General: no acute distress Heart: RRR Lungs: CTAL Abdomen: tenderness to palpation Msk:no pitting edema CBC, BMP 06/24/20 05:36 06/24/20 05:36 #Hemetemsis - continue monitoring - transfer to [facility] for endoscopy - on protonix drip Called by Radiologist, while reading CT scan there appears to be a metallic item near the cecum, typically correlates clinically. radiologist reports no further imaging to be done to evaluate, if patient had been clipped she could have swallowed a clip, he is unsure what the object is. Will continue to manage as planned
[2020-06-24 11:39] LABS: ALBUMIN 2.6 g/dl (3.4-5.0)
[2020-06-24] MEDS ORDERED: ETANERCEPT 50 MG/ML SQ SCH (12:00)
[2020-06-24] MEDS ORDERED: SODIUM PHOSPHATE - 30 MM in SODIUM CHLORIDE 250 ML IVPB ONE (12:15)
[2020-06-24] MEDS ORDERED: CALCIUM GLUCONATE 10% - 1,000 MG/10 ML VIAL IVPUSH ONE (12:47)
--- NOTE | 2020-06-24 13:31 | PN ---
Physical Exam: SUBJECTIVE: Patient seen and examined. Overnight, patient 4 dark BM, liquid consistency. Denies N/V, lightheadeness, dizziness. OBJECTIVE: Vital Signs Period Temp Pulse Resp BP Sys/Ryan Pulse Ox Last 24 Hr 98.2 F-98.5 F 61-79 12-19 117-160/86-143 95-100 GENERAL: Awake, alert, and fully oriented, in no acute distress. HEENT: Normal with no signs of trauma. exopthalmus. PERRL. Moist mucous membranes. LUNGS: Breath sounds equal, clear to auscultation bilaterally. No wheezes, and no crackles. No accessory muscle use. HEART: Regular rate and rhythm, normal S1 and S2 without murmur, rub or gallop. ABDOMEN: Soft, not distended, normoactive bowel sounds, no guarding, no rebound, no masses. diffusely TTP EXTREMITIES: 2+ pulses, warm, well-perfused. No peripheral edema. cut lesions on Left arm self inflicted injury NEUROLOGICAL: Cranial nerves II-XII intact. Normal speech. gait not assessed. PSYCHIATRIC: Cooperative. Good eye contact. Appropriate mood and affect. Laboratory Results - last 24 hr 06/23/20 06/24/20 06/24/20 18:46 05:36 05:36 WBC 9.0 6.0 RBC 3.45 L 3.09 L Hgb 10.4 L 9.6 L Hct 31.6 L D 28.3 L MCV 91.6 91.4 MCH 30.3 31.0 MCHC 33.0 33.9 RDW 19.2 H 19.2 H Plt Count 211 D 205 MPV 8.9 9.1 Absolute Neuts (auto) 6.7 Neutrophils % 74.1 Lymphocytes % 17.3 D Monocytes % 5.9 Eosinophils % 0.5 D Basophils % 2.2 H D Nucleated RBC % 0 Sodium 140 Potassium 3.0 L Chloride 106 Carbon Dioxide 29 Anion Gap 6 L BUN 2.4 L* Creatinine 0.4 L Est GFR (CKD-EPI)AfAm 146.82 Est GFR (CKD-EPI)NonAf 126.68 Random Glucose 73 L Calcium 8.2 L Phosphorus 1.2 L Magnesium 1.6 L Albumin 2.6 L Active Medications Generic Name Dose Route Start Last Admin Trade Name Freq PRN Reason Stop Dose Admin Benzocaine/Menthol 1 each 06/23/20 21:08 06/24/20 08:00 Cepacol Lozenge - MM 1 each Q2H PRN Administration SORE THROAT Chlorhexidine Gluconate 1 applic 06/23/20 22:00 06/23/20 21:24 Hibiclens For Decolonization - TP 1 applic HS JEAN MARIE Administration Pantoprazole Sodium 80 mg/ 100 mls @ 10 mls/hr 06/22/20 17:15 06/23/20 23:15 Sodium Chloride IVPB 06/25/20 17:06 Not Given Q10H JEAN MARIE 8 MG/HR Dextrose/Lactated Ringer's 1,000 mls @ 75 mls/hr 06/24/20 08:45 06/24/20 09:39 D5-Lr - IV 75 mls/hr ASDIR JEAN MARIE Administration Sodium Phosphate 30 mm/ Sodium 260 mls @ 62.5 mls/hr 06/24/20 12:15 06/24/20 12:22 Chloride IVPB 06/24/20 16:24 62.5 mls/hr ONCE ONE Administration Lorazepam 0.5 mg 06/23/20 12:45 Ativan Injection - IVPUSH ONCE PRN ANXIETY Lorazepam 1 mg 06/23/20 20:28 Ativan Injection - IVPUSH Q6H PRN ANXIETY Morphine Sulfate 1 mg 06/23/20 19:58 06/24/20 05:13 Morphine Sulfate IVPUSH 1 mg Q4H PRN Administration PAIN LEVEL 1-5 Mupirocin 1 applic 06/22/20 22:45 06/24/20 09:46 Bactroban Ointment (For Decolonization) - NS 06/27/20 22:44 1 applic BID JEAN MARIE Administration Nicotine 21 mg 06/23/20 10:00 06/24/20 09:38 Nicoderm Patch - TD 21 mg DAILY JEAN MARIE Administration Etanercept [Enbrel] 50 mg 06/24/20 12:00 06/24/20 12:31 50 Mg/Ml (Pt's Own) SQ 50 mg Mo@1000 JEAN MARIE Administration Non-Formulary Medication 2 mg 06/24/20 13:00 Clonazepam [Klonopin] PO BID JEAN MARIE Non-Formulary Medication 100 mg 06/24/20 22:00 Sertraline Hcl [Sertraline Hcl] PO HS JEAN MARIE ASSESSMENT/PLAN: 45 YO F with PMH HTN, rheumatoid arthritis, asthma, depression/anxiety, GERD, SBO (09/2019), sleeve gastrectomy, gastric bypass, 3x abdominoplasty, 2x liposuction, SBO w/internal hernia repair (01/2019) presented with worsening hematemesis and later developed bloody stool. Admitted to ICU for monitoring hemodynamic stability. Neuro AAOX3 Cardio Trop I 0.02 #Prolonged QTC EKG: Sinus tachycardia with premature atrial complexes, possible Left atrial enlargement. 125 bpm, QTC 473 #HTN Pulm -CXR: rounded density Right base. Could represent nipple or areolar shadow. Nipple marker study suggested. If density does not correspond to areolar or nipple shadow, then a tumor must be considered. Consider CT scan -Chest/thorax CTA: 0.8 cm Right lower lobe subpleural node. No significant change since prior study. 6 month f/u recommended. Paraseptal & centrilobular emphysematous changes. small focus low attenuation within Right hemithyroid GI #GI bleed (hematemesis & bloody stool) -pantoprazole drip @ 8 mg/h -s/p octreotide @ 49.92 mcg/h. -s/p one dose ceftriaxone 1 gram for SBP ppx -EGD overnight showed (1) reflux esophagitis, (2) gastrric bypass, (3) large marginal ulcer at gastroenteric anastamosis with adherent clot and visible vessel. -Abd/Pelvis CTA: no active arterial extravsation to suggest GI hemorrhage; moderate hiatal hernia. Complext Right adnexal cyst 2.5 cm. Trace perihepatic perisplenic fluid, paracolic gutters. -Dr. Rondon discussed with Dr. Zina Gonzalez a watch crystal grinder at [facility], who agreed that patient should be transferred. -Dr. Lares was the hospitalist manager non profit yesterday. Dr. Gardner is the hopsitalist for [employer]. Patient needs to be on med-surg floor before the transfer to [facility] can proceed. Once patient is on med surg floor physically, team will call [facility] transfer center at [phone]. Heme #Anemia 2/2 GI bleed -Hgb/Hct 9.6/28.3 ID -Pt endorses HIV results from outpatient were undetermined. -HIV Ag/Ab NEGATIVE -COVID negative. -s/p one dose ceftriaxone 1 gram for SBP ppx Renal No acute issues -BUN/Cr 2.4/0.4 Psych -History of inflicting self harm (cutting herself) when she was a teenager -anxiety: restarted home sertraline and clonazepam -nicotine patch: 21 mg given patients 1 PPD X 30 Year history DVT PPX -hold AC in setting of GI bleed -SCDs FEN Monitor lytes NPO given GI bleed DISPO transfer to [facility] Sharon Larson (sister) [phone] Reina De (aunt) [phone] Dr[address] Rondon discussed with Dr. Zina Gonzalez a watch crystal grinder at [facility], who agreed that patient should be transferred. -Dr. Lares was the hospitalist manager non profit yesterday. Dr. Gardner is the hopsitalist for [employer]. Patient needs to be on med-surg floor before the transfer to [facility] can proceed. Once patient is on med surg floor physically, team will call [facility] transfer center at [phone]. ATTENDING PHYSICIAN STATEMENT I saw and evaluated the patient. I reviewed the resident's note and discussed the case with the resident. I agree with the resident's findings and plan as documented. SUBJECTIVE: OBJECTIVE: ASSESSMENT AND PLAN:
[2020-06-24] MEDS: clonazePAM 2 MG TABLET PO SCH ×2 (14:10→21:16)
[2020-06-24] MEDS: PANTOPRAZOLE SODIUM 80 MG in SODIUM CHLORIDE 100 ML IVPB SCH ×2 (14:11→18:39)
--- NOTE | 2020-06-24 14:23 | DS ---
Physical Exam: SUBJECTIVE: Patient seen and examined. Overnight, patient had 4 dark BM, liquid consistency. Denies N/V, lightheadeness, dizziness. OBJECTIVE: Vital Signs Period Temp Pulse Resp BP Sys/Ryan Pulse Ox Last 24 Hr 98.2 F-98.5 F 61-79 12-19 117-160/86-143 95-100 PHYSICAL EXAM GENERAL: Awake, alert, and fully oriented, in no acute distress. HEENT: Normal with no signs of trauma. exopthalmus. PERRL. Moist mucous membranes. LUNGS: Breath sounds equal, clear to auscultation bilaterally. No wheezes, and no crackles. No accessory muscle use. HEART: Regular rate and rhythm, normal S1 and S2 without murmur, rub or gallop. ABDOMEN: Soft, not distended, normoactive bowel sounds, no guarding, no rebound, no masses. diffusely TTP EXTREMITIES: 2+ pulses, warm, well-perfused. No peripheral edema. cut lesions on Left arm self inflicted injury NEUROLOGICAL: Cranial nerves II-XII intact. Normal speech. gait not assessed. PSYCHIATRIC: Cooperative. Good eye contact. Appropriate mood and affect. LABS Laboratory Tests 06/22/20 06/22/20 06/22/20 16:00 16:00 16:00 WBC 1.5 L* RBC 1.76 L Hgb 5.6 L* Hct 17.6 L D MCV 100.5 H MCH 31.9 MCHC 31.8 L RDW 17.6 H Plt Count 159 D MPV 9.3 Absolute Neuts (auto) 0.6 L Neutrophils % 42.5 L D Neutrophils % (Manual) 46.1 Band Neutrophils % 0.9 Lymphocytes % 37.6 D Lymphocytes % (Manual) 47.9 H Monocytes % 18.9 H Monocytes % (Manual) 5 Eosinophils % 0.3 Eosinophils % (Manual) 0.0 Basophils % 0.7 Basophils % (Manual) 0.0 Myelocytes % (Man) 0 Promyelocytes % (Man) 0 Blast Cells % (Manual) 0 Nucleated RBC % 2 H Metamyelocytes 0 Hypochromia 1+ Platelet Estimate Decreased Polychromasia 1+ Poikilocytosis 1+ Anisocytosis 1+ Microcytosis 1+ Macrocytosis 1+ Ovalocytes 1+ Leland Cells 1+ Acanthocytes (Spur) 1+ Fragmented RBCs 1+ Schistocytes 1+ PT with INR 11.90 INR 1.01 PTT (Actin FS) 23.8 L Sodium 137 Potassium 3.9 Chloride 108 H Carbon Dioxide 20 L Anion Gap 8 BUN 3.0 L Creatinine 0.6 Est GFR (CKD-EPI)AfAm 128.48 Est GFR (CKD-EPI)NonAf 110.86 POC Glucometer Random Glucose 194 H Lactic Acid Calcium 8.0 L Phosphorus Magnesium Total Bilirubin 0.3 AST 29 ALT 16 Alkaline Phosphatase 84 Creatine Kinase Troponin I < 0.02 Total Protein 6.2 L Albumin 2.5 L Lipase 122 Serum , Qual HIV Ag/Ab Combo Qual SARS-CoV-2 (PCR) Blood Type Antibody Screen Crossmatch 06/22/20 06/22/20 06/22/20 16:00 16:00 16:52 WBC RBC Hgb Hct MCV MCH MCHC RDW Plt Count MPV Absolute Neuts (auto) Neutrophils % Neutrophils % (Manual) Band Neutrophils % Lymphocytes % Lymphocytes % (Manual) Monocytes % Monocytes % (Manual) Eosinophils % Eosinophils % (Manual) Basophils % Basophils % (Manual) Myelocytes % (Man) Promyelocytes % (Man) Blast Cells % (Manual) Nucleated RBC % Metamyelocytes Hypochromia Platelet Estimate Polychromasia Poikilocytosis Anisocytosis Microcytosis Macrocytosis Ovalocytes Leland Cells Acanthocytes (Spur) Fragmented RBCs Schistocytes PT with INR INR PTT (Actin FS) Sodium Potassium Chloride Carbon Dioxide Anion Gap BUN Creatinine Est GFR (CKD-EPI)AfAm Est GFR (CKD-EPI)NonAf POC Glucometer 151 Random Glucose Lactic Acid 2.9 H* Calcium Phosphorus Magnesium Total Bilirubin AST ALT Alkaline Phosphatase Creatine Kinase Troponin I Total Protein Albumin Lipase Serum , Qual HIV Ag/Ab Combo Qual SARS-CoV-2 (PCR) Blood Type Cancelled Antibody Screen Cancelled Crossmatch 06/22/20 06/22/20 06/22/20 17:34 17:34 17:34 WBC 10.8 H RBC 2.76 L Hgb 8.8 L Hct 27.2 L D MCV 98.6 H MCH 31.8 MCHC 32.2 RDW 17.4 H Plt Count 248 D MPV 9.4 Absolute Neuts (auto) 9.5 H Neutrophils % 88.3 H D Neutrophils % (Manual) Band Neutrophils % Lymphocytes % 3.7 L D Lymphocytes % (Manual) Monocytes % 7.1 Monocytes % (Manual) Eosinophils % 0.4 Eosinophils % (Manual) Basophils % 0.5 Basophils % (Manual) Myelocytes % (Man) Promyelocytes % (Man) Blast Cells % (Manual) Nucleated RBC % 0 Metamyelocytes Hypochromia Platelet Estimate Polychromasia Poikilocytosis Anisocytosis Microcytosis Macrocytosis Ovalocytes Leland Cells Acanthocytes (Spur) Fragmented RBCs Schistocytes PT with INR INR PTT (Actin FS) Sodium Potassium Chloride Carbon Dioxide Anion Gap BUN Creatinine Est GFR (CKD-EPI)AfAm Est GFR (CKD-EPI)NonAf POC Glucometer Random Glucose Lactic Acid Calcium Phosphorus Magnesium Total Bilirubin AST ALT Alkaline Phosphatase Creatine Kinase Troponin I Total Protein Albumin Lipase Serum , Qual HIV Ag/Ab Combo Qual Negative SARS-CoV-2 (PCR) Blood Type A POSITIVE Antibody Screen Negative Crossmatch See Detail 06/22/20 06/22/20 06/22/20 17:34 17:34 21:11 WBC RBC Hgb Hct MCV MCH MCHC RDW Plt Count MPV Absolute Neuts (auto) Neutrophils % Neutrophils % (Manual) Band Neutrophils % Lymphocytes % Lymphocytes % (Manual) Monocytes % Monocytes % (Manual) Eosinophils % Eosinophils % (Manual) Basophils % Basophils % (Manual) Myelocytes % (Man) Promyelocytes % (Man) Blast Cells % (Manual) Nucleated RBC % Metamyelocytes Hypochromia Platelet Estimate Polychromasia Poikilocytosis Anisocytosis Microcytosis Macrocytosis Ovalocytes Leland Cells Acanthocytes (Spur) Fragmented RBCs Schistocytes PT with INR INR PTT (Actin FS) Sodium 139 Potassium 3.2 L Chloride 106 Carbon Dioxide 25 Anion Gap 8 BUN 3.8 L Creatinine 0.6 Est GFR (CKD-EPI)AfAm 128.48 Est GFR (CKD-EPI)NonAf 110.86 POC Glucometer Random Glucose 134 H Lactic Acid Calcium 7.7 L Phosphorus 1.6 L Magnesium 1.6 L Total Bilirubin 0.1 L AST 14 L ALT 13 Alkaline Phosphatase 76 Creatine Kinase 23 L Troponin I 0.02 Total Protein 5.5 L Albumin 2.3 L Lipase 119 Serum , Qual Negative HIV Ag/Ab Combo Qual SARS-CoV-2 (PCR) Negative Blood Type Antibody Screen Crossmatch 06/23/20 06/23/20 06/23/20 02:45 02:45 02:45 WBC RBC Hgb Hct MCV MCH MCHC RDW Plt Count MPV Absolute Neuts (auto) Neutrophils % Neutrophils % (Manual) Band Neutrophils % Lymphocytes % Lymphocytes % (Manual) Monocytes % Monocytes % (Manual) Eosinophils % Eosinophils % (Manual) Basophils % Basophils % (Manual) Myelocytes % (Man) Promyelocytes % (Man) Blast Cells % (Manual) Nucleated RBC % Metamyelocytes Hypochromia Platelet Estimate Polychromasia Poikilocytosis Anisocytosis Microcytosis Macrocytosis Ovalocytes Ion Cells Acanthocytes (Spur) Fragmented RBCs Schistocytes PT with INR 11.40 INR 0.97 PTT (Actin FS) Sodium 138 Potassium 3.5 Chloride 107 Carbon Dioxide 24 Anion Gap 7 L BUN 7.4 Creatinine 0.5 L Est GFR (CKD-EPI)AfAm 136.42 Est GFR (CKD-EPI)NonAf 117.71 POC Glucometer Random Glucose 192 H Lactic Acid 1.7 Calcium 7.7 L Phosphorus 1.2 L Magnesium 1.9 Total Bilirubin 0.9 AST 17 ALT 15 Alkaline Phosphatase 75 Creatine Kinase Troponin I Total Protein 5.8 L Albumin 2.6 L Lipase Serum , Qual HIV Ag/Ab Combo Qual SARS-CoV-2 (PCR) Blood Type Antibody Screen Crossmatch 06/23/20 06/23/20 06/23/20 02:45 05:50 10:30 WBC 9.6 8.3 7.4 RBC 3.33 L 3.19 L 2.76 L Hgb 10.5 L 9.8 L 8.9 L Hct 31.0 L 29.2 L 25.4 L MCV 93.0 91.8 92.1 MCH 31.4 30.6 32.3 MCHC 33.8 33.4 35.1 RDW 18.0 H 19.2 H 18.9 H Plt Count 176 D 185 164 MPV 9.7 9.8 9.4 Absolute Neuts (auto) 8.9 H 6.9 Neutrophils % 92.2 H 83.9 H Neutrophils % (Manual) 90.1 H Band Neutrophils % 0.0 Lymphocytes % 4.0 L 9.8 D Lymphocytes % (Manual) 5.9 L D Monocytes % 3.7 L 5.8 Monocytes % (Manual) 4 Eosinophils % 0.0 D 0.0 Eosinophils % (Manual) 0.0 Basophils % 0.1 0.5 D Basophils % (Manual) 0.0 Myelocytes % (Man) 0 Promyelocytes % (Man) 0 Blast Cells % (Manual) 0 Nucleated RBC % 0 0 Metamyelocytes 0 Hypochromia 1+ Platelet Estimate Normal Polychromasia 0 Poikilocytosis 1+ Anisocytosis 1+ Microcytosis 1+ Macrocytosis 0 Ovalocytes Leland Cells Acanthocytes (Spur) Fragmented RBCs Schistocytes PT with INR INR PTT (Actin FS) Sodium Potassium Chloride Carbon Dioxide Anion Gap BUN Creatinine Est GFR (CKD-EPI)AfAm Est GFR (CKD-EPI)NonAf POC Glucometer Random Glucose Lactic Acid Calcium Phosphorus Magnesium Total Bilirubin AST ALT Alkaline Phosphatase Creatine Kinase Troponin I Total Protein Albumin Lipase Serum , Qual HIV Ag/Ab Combo Qual SARS-CoV-2 (PCR) Blood Type Antibody Screen Crossmatch 06/23/20 06/24/20 06/24/20 18:46 05:36 05:36 WBC 9.0 6.0 RBC 3.45 L 3.09 L Hgb 10.4 L 9.6 L Hct 31.6 L D 28.3 L MCV 91.6 91.4 MCH 30.3 31.0 MCHC 33.0 33.9 RDW 19.2 H 19.2 H Plt Count 211 D 205 MPV 8.9 9.1 Absolute Neuts (auto) 6.7 Neutrophils % 74.1 Neutrophils % (Manual) Band Neutrophils % Lymphocytes % 17.3 D Lymphocytes % (Manual) Monocytes % 5.9 Monocytes % (Manual) Eosinophils % 0.5 D Eosinophils % (Manual) Basophils % 2.2 H D Basophils % (Manual) Myelocytes % (Man) Promyelocytes % (Man) Blast Cells % (Manual) Nucleated RBC % 0 Metamyelocytes Hypochromia Platelet Estimate Polychromasia Poikilocytosis Anisocytosis Microcytosis Macrocytosis Ovalocytes Leland Cells Acanthocytes (Spur) Fragmented RBCs Schistocytes PT with INR INR PTT (Actin FS) Sodium 140 Potassium 3.0 L Chloride 106 Carbon Dioxide 29 Anion Gap 6 L BUN 2.4 L* Creatinine 0.4 L Est GFR (CKD-EPI)AfAm 146.82 Est GFR (CKD-EPI)NonAf 126.68 POC Glucometer Random Glucose 73 L Lactic Acid Calcium 8.2 L Phosphorus 1.2 L Magnesium 1.6 L Total Bilirubin AST ALT Alkaline Phosphatase Creatine Kinase Troponin I Total Protein Albumin 2.6 L Lipase Serum , Qual HIV Ag/Ab Combo Qual SARS-CoV-2 (PCR) Blood Type Antibody Screen Crossmatch HOSPITAL COURSE: 45 YO F with PMH HTN, rheumatoid arthritis, asthma, depression/anxiety, GERD, SBO (09/2019), sleeve gastrectomy, gastric bypass, 3x abdominoplasty, 2x liposuction, SBO w/internal hernia repair (01/2019) was BIBA for hematemesis for one week that worsened since yesterday. She had episodes of hematemesis at the beginning of the week and went to urgent care that sent her to ED. She has gone to the ED between [facility] and [place] every other day for hematemesis associated with abdominal & chest pain. During those visits, she was given medication for nausea and pain and then sent home. However, she had an increased frequency and volume of bloody vomit beginning yesterday. Her diffuse abdominal and sharp chest pain is associated with vomiting. Heating pads did not improve her pain. Denies taking blood thinners or aspirin. Denies lightheadedness, dizziness, syncope, SOB, diarrhea. On arrival to ED, patient had a bag of 300 mL of bright red blood. After the patient received zofran, she did not have further episodes of vomiting. In the ED, She was also started on ceftriaxone, octreotide, and protonix bolus & drip. Hgb came back as 5.6, but that value was hemolyzed. Repeat Hbg was 8.8, which was greatly reduced from the Hgb level of 12 the previous night. One unit of PRBCs was ordered. Since then, patient had 4 dark red stools. EGD overnight showed large marginal ulcer at gastroenteric anastamosis with adherent clot and visible vessel. Abd/Pelvis CTA shows no active arterial extravsation to suggest GI hemorrhage. After EGD, octreotdie drip was stopped and pantoprazole drip was continued at 8 mg/h. Patient continues to have dark stool. Dr. Panda discussed with Dr. Zina Gonzalez, a producer at [facility], who agreed that patient should be transferred. Date of Admission:06/22/20 Date of Discharge: 06/24/20 Discharge Summary Problems reviewed: Yes Reason For Visit: HEAMATEMESIS Current Active Problems Hematemesis (Acute) Condition: Fair - Instructions Diet, Activity, Other Instructions: GI consult appreciated. stop octreotide. Continue protonix drip. If bleeding continues, will consider transfer to tertiary care that has coagulation spray, so that patient could avoid another surgery, per GI recommendation. Dr. Panda recommended [facility], but it appears that sister prefers [facility] over [facility] at this time per their telephone conversation. Will re- discuss with sister if transfer is needed The following abnormalities were noted on your imaging, please follow up with your primary care physician regarding the findings: .8 cm right lower lobe sub pleural nodule Small abnormality on the right thyroid lobe - Home Medications Comprehensive Discharge Medication List: Ambulatory Orders Zolpidem Tartrate [Ambien] 10 mg PO HS 06/04/17 cloNIDine HCL [Catapres -] 0.1 mg PO BID 06/11/17 Clonazepam [Klonopin] 2 mg PO BID 07/20/17 Amlodipine Besylate [Norvasc -] 5 mg PO DAILY 09/23/18 Etanercept [Enbrel] 50 mg SQ WEEKLY 10/28/18 Esomeprazole Magnesium [Nexium 24Hr] 40 mg PO DAILY 03/09/19 Sertraline HCl 100 mg PO HS 07/22/19 Budesonide/Formeterol Fumarate [SYMBICORT 160/4.5mcg -] 1 puff IH BID inhaler 10/31/19 Meclizine HCl [Antivert -] 25 mg PO QID #28 tablet 05/16/20 Ciprofloxacin [Cipro (Restricted To Id)] 500 mg PO Q12H #28 tablet 05/23/20 Ondansetron [Zofran *Odt*] 4 mg SL BID PRN #10 tab 05/23/20 traMADol HCL [Ultram -] 50 mg PO BID PRN #6 tablet MDD 2 tabs 05/23/20 Fluconazole 150 mg PO ONCE #1 tablet 06/08/20 Ondansetron [Zofran *Odt*] 8 mg SL TID #12 od.tablet 06/21/20 Omeprazole 40 mg PO DAILY #60 tablet. 06/22/20 Potassium Chloride [K-Dur -] 20 meq PO Q12H 06/24/20 ATTENDING PHYSICIAN STATEMENT I saw and evaluated the patient. I reviewed the resident's note and discussed the case with the resident. I agree with the resident's findings and plan as documented. SUBJECTIVE: OBJECTIVE: ASSESSMENT AND PLAN:
[2020-06-24 14:42] VITALS: BMI 20.9
[2020-06-24] MEDS ORDERED: MUPIROCIN 2% TOPICAL OINTMENT FOR DECOLONIZATION NS SCH (22:00)
[2020-06-24] MEDS ORDERED: SERTRALINE HCL 50 MG TABLET (FP) PO SCH (22:00)
[2020-06-25] MEDS ORDERED: ALBUTEROL SO4 2.5/IPRATROPIUM 0.5 INH SOL 3 ML VIAL.NEB. NEB ONE (00:17)
[2020-06-25] MEDS ORDERED: KCL 10 MEQ IVPB 10 MEQ/100 ML INFUS.BAG IVPB SCH (00:21)
[2020-06-25] MEDS: PANTOPRAZOLE SODIUM 80 MG in SODIUM CHLORIDE 100 ML IVPB SCH ×2 (02:06→05:16)
[2020-06-25] MEDS: DEXTROSE 5%-LACTATED RINGERS 1,000 ML IV SCH ×2 (06:01→10:53)
[2020-06-25 06:29] VITALS: TEMP 98.5
[2020-06-25 08:17] LABS: HEMATOCRIT 29.1 % (32.4-45.2); MCH 31.4 pg (25.7-33.7); MCHC 34.2 g/dl (32.0-36.0); MEAN CELL VOLUME 91.7 fl (80-96); MEAN PLT VOLUME 8.4 fl (7.5-11.1); PLATELET COUNT 243 K/MM3 (134-434); RBC 3.18 M/mm3 (3.60-5.2); RDW 18.8 % (11.6-15.6); WHITE BLOOD COUNT 5.9 K/mm3 (4.0-10.0)
[2020-06-25 08:39] LABS: ALBUMIN 2.4 g/dl (3.4-5.0); BILIRUBIN,TOTAL 0.4 mg/dL (0.2-1); CALCIUM 8.2 mg/dL (8.5-10.1); CREATININE 0.5 mg/dL (0.55-1.3); TOT PROT 5.5 g/dl (6.4-8.2)
[2020-06-25 08:43] LABS: BLOOD UREA NITROGEN 2.3 mg/dL (7-18); POTASSIUM 2.8 mmol/L (3.5-5.1)
[2020-06-25] MEDS: clonazePAM 2 MG TABLET PO SCH (09:24)
[2020-06-25] MEDS: MORPHINE SULFATE 2 MG/ML VIAL IVPUSH PRN (09:31)
[2020-06-25] MEDS: BENZOCAINE/MENTH/CETYLPYRD CL 1 EACH LOZENGE MM PRN (09:32)
[2020-06-25] MEDS: KCL 10 MEQ IVPB 10 MEQ/100 ML INFUS.BAG IVPB SCH ×2 (09:40→11:46)
--- NOTE | 2020-06-25 09:50 | PN ---
Progress Note (short form) - Note Progress Note: Resting in NAD. No occult / acute events overnight. Awaiting transfer to tertiary. Intake & Output 06/22/20 06/23/20 06/24/20 06/25/20 23:59 23:59 23:59 23:59 Intake Total 326 857 3696 950 Balance 134 122 9386 950 Weight 123 lb 9.6 oz 123 lb 9.6 oz 130 lb Last Vital Signs Temp Pulse Resp BP Pulse Ox 98.5 F 70 20 141/84 98 06/25/20 06:00 06/25/20 06:00 06/25/20 06:00 06/25/20 06:00 06/25/20 06:00 Active Medications Benzocaine/Menthol (Cepacol Lozenge -) 1 each MM Q2H PRN PRN Reason: SORE THROAT Last Admin: 06/25/20 09:32 Dose: 1 each Documented by: Clonazepam (Klonopin -) 2 mg PO BID [facility] Last Admin: 06/25/20 09:24 Dose: 2 mg Documented by: Dextrose/Lactated Ringer's (D5-Lr -) 1,000 mls @ 75 mls/hr IV ASDIR [facility] Last Admin: 06/25/20 06:01 Dose: 75 mls/hr Documented by: Pantoprazole Sodium 80 mg/ (Sodium Chloride) 100 mls @ 10 mls/hr IVPB Q10H [facility] Stop: 06/25/20 17:06 Last Admin: 06/25/20 05:16 Dose: Not Given Documented by: Potassium Chloride (Potassium Chloride 10 Meq Premix Ivpb -) 10 meq in 100 mls @ 100 mls/hr IVPB Q60M [facility] Stop: 06/25/20 12:59 Last Admin: 06/25/20 09:40 Dose: 100 mls/hr Documented by: Lorazepam (Ativan Injection -) 1 mg IVPUSH Q6H PRN PRN Reason: ANXIETY Morphine Sulfate (Morphine Sulfate) 1 mg IVPUSH Q4H PRN PRN Reason: PAIN LEVEL 1-5 Last Admin: 06/25/20 09:31 Dose: 1 mg Documented by: Nicotine (Nicoderm Patch -) 21 mg TD DAILY [facility] Last Admin: 06/25/20 09:24 Dose: 21 mg Documented by: Etanercept [Enbrel] (50 Mg/Ml (Pt's Own)) 50 mg SQ Mo@1000 [facility] Last Admin: 06/24/20 12:31 Dose: 50 mg Documented by: Sertraline HCl (Zoloft -) 100 mg PO HS [facility] Last Admin: 06/24/20 21:16 Dose: 100 mg Documented by: Gen: NAD at rest Heart: RRR Lung: decreased breath sounds at the bases Abd: soft, nontender Ext: no edema Laboratory Results - last 24 hr 06/24/20 06/25/20 06/25/20 05:36 07:45 07:45 WBC 5.9 RBC 3.18 L Hgb 10.0 L Hct 29.1 L MCV 91.7 MCH 31.4 MCHC 34.2 RDW 18.8 H Plt Count 243 MPV 8.4 Sodium 140 139 Potassium 3.0 L 2.8 L* Chloride 106 101 Carbon Dioxide 29 30 Anion Gap 6 L 8 BUN 2.4 L* 2.3 L* Creatinine 0.4 L 0.5 L Est GFR (CKD-EPI)AfAm 146.82 136.42 Est GFR (CKD-EPI)NonAf 126.68 117.71 Random Glucose 73 L 91 Calcium 8.2 L 8.2 L Phosphorus 1.2 L Magnesium 1.6 L Total Bilirubin 0.4 AST 27 ALT 21 Alkaline Phosphatase 70 Total Protein 5.5 L Albumin 2.6 L 2.4 L ASSESSMENT AND PLAN: Upper GI Bleed from Marginal Ulcer Acute Blood Loss Anemia h/o Gastric Bypass HTN Asthma RA GERD Anxiety/Depression Smoker - PPI - monitor H/H - transfuse as needed - replete lytes - awaiting transfer to tertiary [facility] due to high rebleeding risk - Mechanical prophylaxis Dr Ceo
[2020-06-25] MEDS ORDERED: NICOTINE 21 MG/24 HOURS TOPICAL PATCH TD SCH (10:00)
[2020-06-25 10:47] VITALS: BP 127/77; PULSE 72
== END 2020-06-25 12:28 | disposition short-term general hospital (02) | DRG 378 ==
LOC: JER 15:57 → JICU 20:17 → J8W 06-24 15:28
PROVIDERS: ADMIT Internal Medicine Pulmonary Disease; ATTEND Nurse Practitioner Family
PROC: 5A1945Z Respiratory Ventilation, 24-96 Consecutive Hours (ICD-10-PCS; 2020-06-22)
PROC: 0BH17EZ Insertion of Endotracheal Airway into Trachea, Via Natural or Artificial Opening (ICD-10-PCS; 2020-06-22)
PROC: 30233N1 Transfusion of Nonautologous Red Blood Cells into Peripheral Vein, Percutaneous Approach (ICD-10-PCS; 2020-06-22)
PROC: 0W3P8ZZ Control Bleeding in Gastrointestinal Tract, Via Natural or Artificial Opening Endoscopic (ICD-10-PCS; principal; 2020-06-23)
DX: K28.4 Chronic or unspecified gastrojejunal ulcer with hemorrhage (principal); D62 Acute posthemorrhagic anemia; I10 Essential (primary) hypertension; J45.909 Unspecified asthma, uncomplicated; M06.9 Rheumatoid arthritis, unspecified; F41.8 Other specified anxiety disorders; F17.210 Nicotine dependence, cigarettes, uncomplicated; K21.0 Gastro-esophageal reflux disease with esophagitis; R00.0 Tachycardia, unspecified
CPT/HCPCS: 36415; 36430; 71045-TC-FY; 71275-TC; 74174-TC; 74176-TC; 80048; 80053; 82040; 82550; 82962; 83605; 83690; 83735; 84100; 84484; 84703; 85025; 85027; 85610; 85730; 86359; 86360; 86850; 86900; 86901; 86922; 87389; 93005; 93010; 94002; 94640; 99291; P9058; Q9967; U0003

== ENCOUNTER 2020-06-30 18:43 | Emergency (ER) | payer BC ==
[2020-06-30 18:53] VITALS: BP 141/87; PULSE 110; TEMP 98.5; BMI 20.1
--- NOTE | 2020-06-30 19:03 | PDOC ---
History of Present Illness - General Chief Complaint: Rectal Bleed Stated Complaint: BLK STOOL/ABD PAIN Time Seen by Provider: 06/30/20 19:02 - History of Present Illness Initial Comments: 06/30/20 19:02 45F with significant abdominal/GI history: gastrectomy, gastric bypass, 3x abdominoplasty, 2x liposuction, SBO w/internal hernia repair (January 2019), SBO (Sep 2019), GERD, frequent colitis (last Apr 2020), as well as rheumatoid arthritis, HTN, depression/anxiety, and asthma. She was recently admitted with EGD done, demonstrating large marginal ulcer with visible vessel. She was transfered to [facility], under the care of advanced endoscopist Dr. Zina Gonzalez. She was just discharged from [facility] 2 days ago after EGD with procedure done on ulcer. Today noted melena on multiple bowel movements with associated abdominal pain that's constant and epigastric/LUQ. Denies fevers, nvdc, dysuria. PMH: as in HPI SH: see below Meds: In chart Allergies: In chart Tob/Etoh/Rec drugs: +tobacco ROS GENERAL/CONSTITUTIONAL: No fever or chills. No weakness. HEENT: No change in vision. No ear pain or discharge. No sore throat. CARDIOVASCULAR: No chest pain or shortness of breath RESPIRATORY: No cough, wheezing, or hemoptysis. GASTROINTESTINAL: No nausea, vomiting, diarrhea or constipation. +melena, +abdominal pain GENITOURINARY: No dysuria, frequency, or change in urination. MUSCULOSKELETAL: No joint or muscle swelling or pain. No neck or back pain. SKIN: No rash NEUROLOGIC: No headache, vertigo, loss of consciousness, or change in strength/sensation. ENDOCRINE: No increased thirst. No abnormal weight change HEMATOLOGIC/LYMPHATIC: No history of blood clots. ALLERGIC/IMMUNOLOGIC: No hives or skin allergy. PE GENERAL: AOx3; no acute distress HEAD: No signs of trauma, NC/AT EYES: PERRLA, EOMI, sclera anicteric, conjunctiva clear ENT: Auricles normal inspection, hearing grossly normal, nares patent, moist mucosa, oropharynx clear without exudates. NECK: Normal ROM, supple, no LAD, JVD, or masses HEART: RRR, normal S1/S2, no murmurs, rubs, or gallops. Peripheral pulses 2+ and equal bilaterally. LUNGS: No distress, speaks full sentences, clear to auscultation bilaterally ABDOMEN: Soft, mild epigastric/LUQ tenderness w/o guarding or rebound tenderness. No masses EXTREMITIES: Normal inspection, Normal range of motion, no edema. NEUROLOGICAL: CNII-XII grossly intact. Normal speech, no focal sensorimotor deficits SKIN: Warm, Dry, normal turgor, no rashes or lesions noted Assessment and Plan 1. upper GI bleed 2/2 ulcer Be Thomas, PGY1 Emergency Medicine Past History - Medical History Allergies/Adverse Reactions: Allergies Allergy/AdvReac Type Severity Reaction Status Date / Time shellfish derived Allergy Intermediate Hives Verified 06/22/20 16:27 bupropion HCl Allergy Rash Verified 06/22/20 16:27 [From Wellbutrin] Home Medications: Ambulatory Orders Zolpidem Tartrate [Ambien] 10 mg PO HS 06/04/17 cloNIDine HCL [Catapres -] 0.1 mg PO BID 06/11/17 Clonazepam [Klonopin] 2 mg PO BID 07/20/17 Amlodipine Besylate [Norvasc -] 5 mg PO DAILY 09/23/18 Etanercept [Enbrel] 50 mg SQ WEEKLY 10/28/18 Esomeprazole Magnesium [Nexium 24Hr] 40 mg PO DAILY 03/09/19 Sertraline HCl 100 mg PO HS 07/22/19 Budesonide/Formeterol Fumarate [SYMBICORT 160/4.5mcg -] 1 puff IH BID inhaler 10/31/19 Meclizine HCl [Antivert -] 25 mg PO QID #28 tablet 05/16/20 Ciprofloxacin [Cipro (Restricted To Id)] 500 mg PO Q12H #28 tablet 05/23/20 Ondansetron [Zofran *Odt*] 4 mg SL BID PRN #10 tab 05/23/20 traMADol HCL [Ultram -] 50 mg PO BID PRN #6 tablet MDD 2 tabs 05/23/20 Fluconazole 150 mg PO ONCE #1 tablet 06/08/20 Ondansetron [Zofran *Odt*] 8 mg SL TID #12 od.tablet 06/21/20 Omeprazole 40 mg PO DAILY #60 06/22/20 Potassium Chloride [K-Dur -] 20 meq PO Q12H 06/24/20 Anemia: Yes Asthma: Yes (USES INHALER PROAIR) Cancer: No Cardiac Disorders: No CVA: No COPD: No CHF: No Dementia: No Diabetes: No GI Disorders: Yes (COLITIS) Disorders: No HTN: Yes Hypercholesterolemia: No Liver Disease: No Psychiatric Problems: Yes (DEPRESSION, anxiety) Seizures: No Thyroid Disease: No - Surgical History Abdominal Surgery: Yes (VERTICAL SLEEVE GASTRECTOMY 2012, ABDOMINOPLASTY/AND REVISION, LIPO X2,) Appendectomy: No Cardiac Surgery: No Cholecystectomy: No GI Surgery: Yes (GASTRIC BYPASS and gastric sleeve) Lung Surgery: No Neurologic Surgery: No Orthopedic Surgery: Yes (RIGHT KNEE, SHOULDER SX, WRIST SX) - Reproductive History Is Patient Now?: No - Immunization History Td Vaccination: Yes TDAP Vaccination: Yes Immunization Up to Date: Yes - Psycho-Social/Smoking History Smoking Status: No Smoking History: Current some day smoker Years of Tobacco Use: 24 Have you smoked in the past 12 months: Yes Number of Cigarettes Smoked Daily: 1 If you are a former smoker, when did you quit?: 10/14/18 Information on smoking cessation initiated: Yes 'Breaking Loose' booklet given: 01/02/20 - Substance Abuse Hx (Audit-C & DAST Scrn) How often the patient has a drink containing alcohol: Never Score: In Men: 4 or > Positive; In Women: 3 or > Positive: 0 Screen Result (Pos requires Nsg. Audit-10AR): Negative *Physical Exam - Vital Signs Last Vital Signs Temp Pulse Resp BP Pulse Ox 98.5 F 110 H 20 141/87 99 06/30/20 18:48 06/30/20 18:48 06/30/20 18:48 06/30/20 18:48 06/30/20 18:48 ED Treatment Course - LABORATORY CBC & Chemistry Diagram: 06/30/20 21:34 06/30/20 21:34 Medical Decision Making - Medical Decision Making 06/30/20 21:30 45F with extensive GI hx, recently discharged from [facility] for EGD for ulcer adjacent to vasculature p/w melena and abdominal pain. On exam, she had mild- moderate LUQ/epigastric tenderness w/o rebound or guarding. -> will get occult stool, CBC, CMP, type and screen. 06/30/20 21:45 Stool occult blood negative. 06/30/20 21:58 Hgb 9.9 (was 10.0 on 06/25). HCT 29.9 (increased from 29.1 on 06/25). 07/01/20 13:23 Note was unable to be completed due to the EMR being down. Signed out AMA. The rn hyperbaric, Dr. Zina Gonzalez, at [facility] was unable to be consulted directly, so planned to transfer to [facility] for further workup. The pt was reluctant with this plan. She was urged that the safest plan was to transfer, however she preferred to sign out AMA and f/u on her own. Risks of signing out w/o transfer was explained, which she agreed to and understood. AMA form was signed and left with her RN. Discharge - Discharge Information Problems reviewed: Yes Clinical Impression/Diagnosis: Dark stools, Ulcer GIB (gastrointestinal bleeding) Qualifiers: GI bleed type/associated pathology: melena Qualified Code(s): K92.1 - Melena Condition: Unchanged/Unknown Disposition: AGAINST MEDICAL ADVICE - Admission No - Follow up/Referral Referrals: Zane Mckoy MD [Primary Care Provider] - - Patient Discharge Instructions - Post Discharge Activity
[2020-06-30 21:48] LABS: BASO % 0.9 % (0-2.0); HEMATOCRIT 29.9 % (32.4-45.2); HEMOGLOBIN 9.9 GM/dL (10.7-15.3); LYMPH % 12.5 % (8-40); MCH 31.7 pg (25.7-33.7); MCHC 33.2 g/dl (32.0-36.0); MEAN CELL VOLUME 95.6 fl (80-96); MEAN PLT VOLUME 8.8 fl (7.5-11.1); MONO % 11.1 % (3.8-10.2); NEUT % 74.5 % (42.8-82.8); PLATELET COUNT 356 K/MM3 (134-434); RBC 3.13 M/mm3 (3.60-5.2); RDW 18.5 % (11.6-15.6); WHITE BLOOD COUNT 6.7 K/mm3 (4.0-10.0)
[2020-06-30 22:07] LABS: ALBUMIN 2.8 g/dl (3.4-5.0); BILIRUBIN,TOTAL 0.1 mg/dL (0.2-1); BLOOD UREA NITROGEN 14.4 mg/dL (7-18); CALCIUM 8.7 mg/dL (8.5-10.1); CREATININE 0.8 mg/dL (0.55-1.3); POTASSIUM 4.1 mmol/L (3.5-5.1); TOT PROT 6.4 g/dl (6.4-8.2)
--- NOTE | 2020-07-01 01:13 | PDOC ---
Documentation entered by Rosa Iverson SCRIBE, acting as scribe for Ang Arellano MD. Ang Arellano MD: This documentation has been prepared by the scribe, Rosa Iverson SCRIBE, under my direction and personally reviewed by me in its entirety. I confirm that the documentation accurately reflects all work, treatment, procedures, and medical decision making performed by me. Attending Attestation - Resident Resident Name: Be Thomas - ED Attending Attestation I have performed the following: I have examined & evaluated the patient, The case was reviewed & discussed with the resident, I agree w/resident's findings & plan, Exceptions are as noted - HPI HPI: 06/30/20 19:24 Patient is a 45 year old female with a significant past medical history of gastrectomy, gastric bypass, 3x abdominoplasty, 2x liposuction, SBO w/internal hernia repair (January 2019), SBO (Sep 2019), GERD, frequent colitis (last Apr 2020), rheumatoid arthritis, recent admission and transfer to [facility] for EGD demonstrating large marginal ulcer with visible vessel, HTN, depression/anxiety, and asthma who presents to the ED with a dark stool x 3. Reports just prior to arrival to the ED, she had 3 black colored BMs associated with epigastric abd pain. Pt reports the abd pain has stopped. She is not on blood thinners. States while at [facility], they performed a procedure for her ulcer (Dr. Zina Gonzalez). Denies F/C, headache, dizziness, focal weakness/weakness, CP, SOB, urinary sxs, LE edema/pain. Denies iron or pepto bismol ingestion. Patient denies: any other related symptoms. Allergies: shellfish derived and bupropion HCl - Physicial Exam PE: 06/30/20 19:28 GENERAL: Awake, alert, and fully oriented, in no acute distress EYES: PERRLA, EOMI, sclera anicteric, conjunctiva clear ENT: Oropharynx clear without exudates. Moist mucosa NECK: Normal ROM, supple, no lymphadenopathy, JVD, or masses LUNGS: Breath sounds equal, clear to auscultation bilaterally. No wheezes, and no crackles HEART: Regular rate and rhythm, normal S1 and S2, no murmurs, rubs or gallops ABDOMEN: Soft, nontender, normoactive bowel sounds. No guarding, no rebound. No masses RECTAL: brown, non bloody stool in vault. No active bleeding. No hemorrhoids. EXTREMITIES: Normal range of motion, no edema. No clubbing or cyanosis. No cords, erythema, or tenderness NEUROLOGICAL: Normal speech, cranial nerves intact, 5/5 strength in all 4 extremities, normal sensation to light touch in all 4 extremities, normal cerebellar exam, normal gait SKIN: Warm, Dry, normal turgor, no rashes or lesions noted. - Medical Decision Making 06/30/20 22:56 45yo F with recent history of UGIB, found on endoscopy to have ulcer at gastroenteric junction of previous gastric bypass near vessel and subsequently transferred to [facility] for definitive management presents to the ED with 3 episodes of black stool concerning for melena. At this time, pt is hemodynamically stable with no further episodes of melena in the ED Rectal exam with guaic negative brown stool H&H stable compared to last recorded values here. Upon discussion with transfer center at [facility], they recommended transfer given recent procedure Pt accepted for transfer by Discussed with pt need for transfer for evaluation by GI at [facility], however pt wishes to go home and does not want to leave her car in our parking lot. Explained to patient the risk of leaving the ED without completing her evaluation but she wishes to sign out AMA and f/u tomorrow The patient is clinically sober, free from distracting injury, appears to have intact insight and judgment and reason and in my opinion has the capacity to make decisions. The patient presents with dark stools. I have explained that I am concerned that this may represent internal bleeding; she has verbalized an understanding of my concerns. I have told the patient that while her labs/vitals/stool sample were normal, she could still have bleeding. I have discussed the need for transfer to [facility] to get more information about potential causes of the patients dark stools. I have told the patient that if they leave and have more dark stools and/or bleeding, they could get much worse, could become critically ill, and could possibly become disabled or . The patient is not willing to undergo a transfer. She is unwilling to stay overnight for monitoring. She is refusing any further care and is leaving against medical advice. I am unable to convince the patient to stay, I have asked her to return as soon as possible to complete her evaluation. I updated the [facility] that the patient is declining the transfer. I have answered all of the patient's questions. Torin was down at the time of AMA - we were unable to give the patient torin produced discharge instructions but discussed the risks of leaving AMA with pt including or permanent disability and she expressed understanding. We urged the patient to return [facility] to complete evaluation or follow up with her PMD/GI as an outpt if she felt more comfortable there. Discharge - Discharge Information Problems reviewed: Yes Clinical Impression/Diagnosis: Dark stools, Ulcer, GIB (gastrointestinal bleeding) Condition: Unchanged/Unknown Disposition: AGAINST MEDICAL ADVICE - Follow up/Referral Referrals: Zane Mckoy MD [Primary Care Provider] - - Patient Discharge Instructions - Post Discharge Activity
== END 2020-07-01 00:05 | disposition left against medical advice (07) ==
LOC: JER 18:43
DX: K92.1 Melena (principal)
CPT/HCPCS: 36415; 80053; 82272; 85025; 99283-25

== ENCOUNTER 2020-08-17 03:34 | Emergency (ER) | payer BC ==
[2020-08-17 04:06] VITALS: BMI 19.0
[2020-08-17 04:49] LABS: INR 1.02 (0.83-1.09); PROTHROMBIN TIME (PATIENT) 12.3 SEC (9.7-13.0)
[2020-08-17 04:51] LABS: ACTIVATED PTT 29.5 SECONDS (25.2-36.5)
[2020-08-17 05:23] LABS: POTASSIUM 3.6 mmol/L (3.5-5.1)
[2020-08-17 05:24] LABS: CALCIUM 8.3 mg/dL (8.5-10.1)
[2020-08-17 05:25] LABS: BLOOD UREA NITROGEN 6.6 mg/dL (7-18)
[2020-08-17 05:28] LABS: CREATININE 0.6 mg/dL (0.55-1.3)
[2020-08-17 05:29] LABS: BILIRUBIN,TOTAL 0.4 mg/dL (0.2-1); TOT PROT 6.4 g/dl (6.4-8.2)
[2020-08-17 05:57] LABS: BASO % 0.7 % (0-2.0); EOS % 1.2 % (0-4.5); HEMATOCRIT 40.2 % (32.4-45.2); MCH 29.3 pg (25.7-33.7); MCHC 32.3 g/dl (32.0-36.0); MEAN CELL VOLUME 90.5 fl (80-96); MEAN PLT VOLUME 8.9 fl (7.5-11.1); MONO % 11.9 % (3.8-10.2); NEUT % 68.2 % (42.8-82.8); PLATELET COUNT 268 K/MM3 (134-434); RBC 4.45 M/mm3 (3.60-5.2); RDW 17.8 % (11.6-15.6); WHITE BLOOD COUNT 5.7 K/mm3 (4.0-10.0)
[2020-08-17 07:25] VITALS: BP 154/67; PULSE 81; TEMP 98
== END 2020-08-17 07:34 | disposition home or self-care (01) ==
LOC: JER 03:34
DX: R11.10 Vomiting, unspecified (principal); K92.1 Melena
CPT/HCPCS: 36415; 80053; 82272; 84703; 85025; 85610; 85730; 86850; 86900; 86901; 93005; 93010; 99285-25

== ENCOUNTER 2020-08-17 23:10 | Inpatient (IN) | payer BC ==
[2020-08-18 00:05] LABS: BASO % 0.9 % (0-2.0); EOS % 0.9 % (0-4.5); HEMATOCRIT 40.7 % (32.4-45.2); HEMOGLOBIN 13.5 GM/dL (10.7-15.3); LYMPH % 9.5 % (8-40); MCH 29.9 pg (25.7-33.7); MEAN CELL VOLUME 90.6 fl (80-96); MEAN PLT VOLUME 8.6 fl (7.5-11.1); MONO % 12.2 % (3.8-10.2); NEUT % 76.5 % (42.8-82.8); PLATELET COUNT 263 K/MM3 (134-434); WHITE BLOOD COUNT 6.4 K/mm3 (4.0-10.0)
[2020-08-18 00:13] LABS: INR 0.97 (0.83-1.09)
[2020-08-18 00:15] LABS: ACTIVATED PTT 29.2 SECONDS (25.2-36.5)
[2020-08-18] MEDS ORDERED: ACETAMINOPHEN 1000 MG/100 ML VIAL (NON FORMULARY) IVPB ONE (00:29)
[2020-08-18] MEDS ORDERED: ONDANSETRON 4 MG/2 ML VIAL IVPB ONE (00:30)
[2020-08-18] MEDS ORDERED: ACETAMINOPHEN INJECTION 100 ML IVPB ONE (00:31)
[2020-08-18 01:05] LABS: SODIUM 138 mmol/L (136-145)
[2020-08-18 01:06] LABS: CHLORIDE 104 mmol/L (98-107); POTASSIUM 3.1 mmol/L (3.5-5.1)
[2020-08-18 01:08] LABS: ALBUMIN 3.1 g/dl (3.4-5.0); ANION GAP 6 MMOL/L (8-16); BLOOD UREA NITROGEN 5.2 mg/dL (7-18); CALCIUM 8.5 mg/dL (8.5-10.1); CO2 28 mmol/L (21-32); GLUCOSE,RANDOM 101 mg/dL (74-106)
[2020-08-18 01:09] LABS: LIPASE 131 U/L (73-393)
[2020-08-18 01:11] LABS: CREATININE 0.7 mg/dL (0.55-1.3); SGOT/AST 20 U/L (15-37); SGPT/ALT 26 U/L (13-61)
[2020-08-18 01:13] LABS: BILIRUBIN,TOTAL 0.3 mg/dL (0.2-1)
[2020-08-18 01:14] LABS: ALK PHOS 100 U/L (45-117)
[2020-08-18] MEDS ORDERED: POTASSIUM CHLORIDE ORAL LIQUID 20 MEQ/15 ML PO ONE (03:27)
[2020-08-18] MEDS ORDERED: morphine SULFATE 4 MG/ML VIAL IVPUSH ONE (03:44)
[2020-08-18] MEDS ORDERED: morphine SULFATE 4 MG/ML VIAL ONE (03:45)
[2020-08-18] MEDS ORDERED: POTASSIUM CHLORIDE ORAL LIQUID 20 MEQ/15 ML ONE (05:06)
[2020-08-18] MEDS: ONDANSETRON 4 MG/2 ML VIAL IVPUSH PRN ×2 (07:34→21:32)
[2020-08-18] MEDS: MORPHINE SULFATE 2 MG/ML VIAL IVPUSH PRN ×3 (08:00→18:16)
[2020-08-18 08:12] LABS: POTASSIUM 3.8 mmol/L (3.5-5.1)
[2020-08-18 08:16] LABS: ALBUMIN 3.2 g/dl (3.4-5.0); CALCIUM 8.7 mg/dL (8.5-10.1)
[2020-08-18 08:17] LABS: BLOOD UREA NITROGEN 3.6 mg/dL (7-18)
[2020-08-18 08:20] LABS: CREATININE 0.6 mg/dL (0.55-1.3)
[2020-08-18 08:21] LABS: BILIRUBIN,TOTAL 0.8 mg/dL (0.2-1); TOT PROT 6.7 g/dl (6.4-8.2)
[2020-08-18 08:27] LABS: BASO % 0.7 % (0-2.0); EOS % 1.3 % (0-4.5); HEMOGLOBIN 13.1 GM/dL (10.7-15.3); LYMPH % 13.7 % (8-40); MCH 29.8 pg (25.7-33.7); MCHC 32.7 g/dl (32.0-36.0); MEAN CELL VOLUME 91.1 fl (80-96); MEAN PLT VOLUME 9.4 fl (7.5-11.1); MONO % 14.9 % (3.8-10.2); NEUT % 69.4 % (42.8-82.8); PLATELET COUNT 264 K/MM3 (134-434); RBC 4.39 M/mm3 (3.60-5.2); RDW 17.7 % (11.6-15.6); WHITE BLOOD COUNT 8.4 K/mm3 (4.0-10.0)
[2020-08-18] MEDS: DEXTROSE 5%-0.45% SALINE 1,000 ML IV SCH ×2 (09:08→21:33)
[2020-08-18] MEDS: FAMOTIDINE 20 MG/50 ML IVPB 20 MG/50 ML MG IVPB SCH ×2 (09:08→21:32)
[2020-08-18] MEDS: ENOXAPARIN NA (PORCINE) 40 MG/0.4 ML DISP.SYRIN SQ SCH (09:08)
[2020-08-18] MEDS: ACETAMINOPHEN 1000 MG/100 ML VIAL (NON FORMULARY) IVPB PRN ×2 (09:09→20:52)
[2020-08-18] MEDS: amLODIPine BESYLATE 5 MG TABLET (FP) PO SCH (13:58)
[2020-08-18] MEDS: cloNIDine HCL 0.1 MG TABLET PO SCH ×2 (13:58→21:32)
[2020-08-18] MEDS: BUDESONIDE/FORMETEROL FUMARATE 160/4.5 mcg INHALER IH SCH ×2 (13:58→21:31)
[2020-08-18] MEDS: NICOTINE 14 MG/24 HOURS TOPICAL PATCH TD SCH (18:16)
[2020-08-18] MEDS ORDERED: ZOLPIDEM TARTRATE 5 MG TABLET PO ONE (21:08)
[2020-08-18] MEDS: SERTRALINE HCL 50 MG TABLET (FP) PO SCH (21:32)
[2020-08-19] MEDS: MORPHINE SULFATE 2 MG/ML VIAL IVPUSH PRN ×2 (02:30→10:05)
[2020-08-19] MEDS: ONDANSETRON 4 MG/2 ML VIAL IVPUSH PRN ×2 (04:09→10:06)
[2020-08-19] MEDS: DEXTROSE 5%-0.45% SALINE 1,000 ML IV SCH ×2 (06:46→10:09)
[2020-08-19] MEDS: ACETAMINOPHEN 1000 MG/100 ML VIAL (NON FORMULARY) IVPB PRN (06:47)
[2020-08-19 08:16] LABS: POTASSIUM 3.3 mmol/L (3.5-5.1)
[2020-08-19 08:18] LABS: ALBUMIN 2.6 g/dl (3.4-5.0); BLOOD UREA NITROGEN 3.4 mg/dL (7-18)
[2020-08-19 08:22] LABS: CREATININE 0.5 mg/dL (0.55-1.3)
[2020-08-19 08:23] LABS: BILIRUBIN,TOTAL 0.4 mg/dL (0.2-1); TOT PROT 5.9 g/dl (6.4-8.2)
[2020-08-19 08:34] LABS: HEMATOCRIT 36.4 % (32.4-45.2); HEMOGLOBIN 11.7 GM/dL (10.7-15.3); MCH 29.6 pg (25.7-33.7); MCHC 32.2 g/dl (32.0-36.0); MEAN PLT VOLUME 9.5 fl (7.5-11.1); PLATELET COUNT 239 K/MM3 (134-434); RBC 3.96 M/mm3 (3.60-5.2); RDW 18.1 % (11.6-15.6); WHITE BLOOD COUNT 7.9 K/mm3 (4.0-10.0)
[2020-08-19] MEDS: NICOTINE 14 MG/24 HOURS TOPICAL PATCH TD SCH (09:57)
[2020-08-19] MEDS: FAMOTIDINE 20 MG/50 ML IVPB 20 MG/50 ML MG IVPB SCH (09:57)
[2020-08-19] MEDS: cloNIDine HCL 0.1 MG TABLET PO SCH ×2 (09:57→22:41)
[2020-08-19] MEDS: amLODIPine BESYLATE 5 MG TABLET (FP) PO SCH (09:57)
[2020-08-19] MEDS: ENOXAPARIN NA (PORCINE) 40 MG/0.4 ML DISP.SYRIN SQ SCH (09:59)
[2020-08-19] MEDS: BUDESONIDE/FORMETEROL FUMARATE 160/4.5 mcg INHALER IH SCH ×2 (09:59→22:41)
[2020-08-19] MEDS ORDERED: PANTOPRAZOLE SODIUM 40 MG VIAL IVPUSH SCH (10:00)
[2020-08-19] MEDS: SUCRALFATE 1 GM/10 ML UNIT DOSE CUPS PO SCH ×3 (10:18→22:40)
[2020-08-19 11:15] LABS: ANISOCYTOSIS 2+; MACROCYTOSIS 1+; PLATELET ESTIMATE NORMAL; TARGET CELLS 1+; TOXIC GRANULATION 2+
[2020-08-19] MEDS ORDERED: POTASSIUM CHLORIDE TABS 20 MEQ TABLET.ER (FP) PO ONE (11:17)
[2020-08-19] MEDS ORDERED: ACETAMINOPHEN 1000 MG/100 ML VIAL (NON FORMULARY) IVPB PRN (11:32)
[2020-08-19] MEDS ORDERED: ACETAMINOPHEN 325 MG TABLET (FP) PO SCH (11:38)
[2020-08-19] MEDS: PATIENT'S OWN MEDICATION (NON-FORMULARY) (Acetaminophen [Tylenol] 325 MG Capsule) PO SCH (12:42)
[2020-08-19] MEDS: clonazePAM 2 MG TABLET PO PRN ×2 (12:53→23:26)
[2020-08-19] MEDS: morphine SULFATE 4 MG/ML VIAL IVPUSH PRN ×2 (14:38→20:33)
[2020-08-19] MEDS: GABAPENTIN 300 MG CAPSULE PO SCH ×2 (15:10→22:40)
[2020-08-19] MEDS: ZOLPIDEM TARTRATE 5 MG TABLET PO PRN (22:41)
[2020-08-19] MEDS: SERTRALINE HCL 50 MG TABLET (FP) PO SCH (22:41)
[2020-08-20] MEDS: DEXTROSE 5%-0.45% SALINE 1,000 ML IV SCH ×3 (01:20→22:16)
[2020-08-20] MEDS: MORPHINE SULFATE 2 MG/ML VIAL IVPUSH PRN ×4 (02:41→21:02)
[2020-08-20] MEDS: SUCRALFATE 1 GM/10 ML UNIT DOSE CUPS PO SCH ×4 (06:04→21:08)
[2020-08-20] MEDS: GABAPENTIN 300 MG CAPSULE PO SCH ×3 (06:04→21:09)
[2020-08-20] MEDS: LEFLUNOMIDE 10 MG TABLET PO SCH (06:04)
[2020-08-20 08:40] LABS: BASO % 0.3 % (0-2.0); EOS % 0.6 % (0-4.5); HEMATOCRIT 33.2 % (32.4-45.2); HEMOGLOBIN 10.8 GM/dL (10.7-15.3); LYMPH % 17.9 % (8-40); MCH 29.9 pg (25.7-33.7); MCHC 32.4 g/dl (32.0-36.0); MEAN CELL VOLUME 92.2 fl (80-96); MEAN PLT VOLUME 9.4 fl (7.5-11.1); MONO % 16.8 % (3.8-10.2); NEUT % 64.4 % (42.8-82.8); PLATELET COUNT 215 K/MM3 (134-434); WHITE BLOOD COUNT 5.6 K/mm3 (4.0-10.0)
[2020-08-20 08:51] LABS: POTASSIUM 3.8 mmol/L (3.5-5.1)
[2020-08-20 08:53] LABS: CALCIUM 8.1 mg/dL (8.5-10.1)
[2020-08-20 08:54] LABS: ALBUMIN 2.3 g/dl (3.4-5.0); BLOOD UREA NITROGEN 5.2 mg/dL (7-18)
[2020-08-20 08:57] LABS: CREATININE 0.6 mg/dL (0.55-1.3)
[2020-08-20 08:58] LABS: BILIRUBIN,TOTAL 0.2 mg/dL (0.2-1)
[2020-08-20 08:59] LABS: TOT PROT 5.4 g/dl (6.4-8.2)
[2020-08-20] MEDS: PANTOPRAZOLE 40 MG TABLET PO SCH (09:16)
[2020-08-20] MEDS: amLODIPine BESYLATE 5 MG TABLET (FP) PO SCH (09:16)
[2020-08-20] MEDS: cloNIDine HCL 0.1 MG TABLET PO SCH ×2 (09:16→21:09)
[2020-08-20] MEDS: ENOXAPARIN NA (PORCINE) 40 MG/0.4 ML DISP.SYRIN SQ SCH ×2 (09:16→09:29)
[2020-08-20] MEDS: clonazePAM 2 MG TABLET PO PRN (09:16)
[2020-08-20] MEDS: NICOTINE 14 MG/24 HOURS TOPICAL PATCH TD SCH (09:16)
[2020-08-20] MEDS: BUDESONIDE/FORMETEROL FUMARATE 160/4.5 mcg INHALER IH SCH ×2 (09:18→21:09)
[2020-08-20] MEDS ORDERED: ACETAMINOPHEN 1000 MG/100 ML VIAL (NON FORMULARY) IVPB PRN (14:18)
[2020-08-20 15:53] VITALS: BMI 19.0
[2020-08-20] MEDS: SERTRALINE HCL 50 MG TABLET (FP) PO SCH (21:09)
[2020-08-20] MEDS ORDERED: ACETAMINOPHEN 325 MG TABLET (FP) PO ONE (22:33)
[2020-08-20] MEDS ORDERED: ACETAMINOPHEN 1000 MG/100 ML VIAL (NON FORMULARY) IVPB ONE (22:46)
[2020-08-20] MEDS ORDERED: ACETAMINOPHEN INJECTION 100 ML IVPB ONE (22:57)
[2020-08-20] MEDS: ZOLPIDEM TARTRATE 5 MG TABLET PO PRN (23:05)
[2020-08-21] MEDS: MORPHINE SULFATE 2 MG/ML VIAL IVPUSH PRN ×2 (04:37→09:36)
[2020-08-21] MEDS ORDERED: PT OWN MED DRAWER 7, Y5N ONE ×2 (06:02→07:02)
[2020-08-21] MEDS: GABAPENTIN 300 MG CAPSULE PO SCH (06:51)
[2020-08-21] MEDS: SUCRALFATE 1 GM/10 ML UNIT DOSE CUPS PO SCH ×2 (06:52→11:31)
[2020-08-21] MEDS: LEFLUNOMIDE 10 MG TABLET PO SCH (06:52)
[2020-08-21 07:49] VITALS: TEMP 98.3
[2020-08-21 08:40] LABS: POTASSIUM 4.3 mmol/L (3.5-5.1)
[2020-08-21 08:45] LABS: CALCIUM 8.4 mg/dL (8.5-10.1)
[2020-08-21 08:46] LABS: ALBUMIN 2.5 g/dl (3.4-5.0)
[2020-08-21 08:49] LABS: CREATININE 0.7 mg/dL (0.55-1.3)
[2020-08-21 08:50] LABS: BILIRUBIN,TOTAL 0.2 mg/dL (0.2-1)
[2020-08-21] MEDS: DEXTROSE 5%-0.45% SALINE 1,000 ML IV SCH (08:54)
[2020-08-21 09:06] LABS: BASO % 0.3 % (0-2.0); EOS % 1.7 % (0-4.5); HEMATOCRIT 33.5 % (32.4-45.2); HEMOGLOBIN 10.9 GM/dL (10.7-15.3); LYMPH % 19.2 % (8-40); MCH 30.2 pg (25.7-33.7); MCHC 32.5 g/dl (32.0-36.0); MEAN CELL VOLUME 93.1 fl (80-96); MEAN PLT VOLUME 9.4 fl (7.5-11.1); MONO % 14.2 % (3.8-10.2); NEUT % 64.6 % (42.8-82.8); PLATELET COUNT 251 K/MM3 (134-434); RDW 17.9 % (11.6-15.6); WHITE BLOOD COUNT 3.8 K/mm3 (4.0-10.0)
[2020-08-21] MEDS: NICOTINE 14 MG/24 HOURS TOPICAL PATCH TD SCH (09:07)
[2020-08-21] MEDS: ENOXAPARIN NA (PORCINE) 40 MG/0.4 ML DISP.SYRIN SQ SCH (09:07)
[2020-08-21] MEDS: cloNIDine HCL 0.1 MG TABLET PO SCH (09:07)
[2020-08-21] MEDS: PANTOPRAZOLE 40 MG TABLET PO SCH (09:07)
[2020-08-21] MEDS: amLODIPine BESYLATE 5 MG TABLET (FP) PO SCH (09:07)
[2020-08-21] MEDS: BUDESONIDE/FORMETEROL FUMARATE 160/4.5 mcg INHALER IH SCH (09:16)
[2020-08-21 09:50] VITALS: BP 124/72; PULSE 84
== END 2020-08-21 13:30 | disposition home or self-care (01) | DRG 382 ==
LOC: JER 23:10 → JERBED 08-18 02:43 → J5S 08-18 06:51
PROVIDERS: ADMIT Internal Medicine; ATTEND Family Medicine
DX: K28.9 Gastrojejunal ulcer, unspecified as acute or chronic, without hemorrhage or perforation (principal); E87.6 Hypokalemia; R10.9 Unspecified abdominal pain; F41.8 Other specified anxiety disorders; K21.9 Gastro-esophageal reflux disease without esophagitis; I10 Essential (primary) hypertension; M06.9 Rheumatoid arthritis, unspecified
CPT/HCPCS: 36415; 71045-TC-FY; 71101-TC-RT-FY; 72192-TC; 73523-TC-FY; 74160-TC; 80053; 82150; 82550; 83605; 83690; 84484; 84703; 85025; 85610; 85730; 87040; 87045; 87046; 87177; 87186; 87205; 87209; 87324; 87449; 93005; 93010; 99285-25; C9803; J0131; J0735; U0003

== ENCOUNTER 2020-09-06 08:06 | Inpatient (IN) | payer BC ==
[2020-09-06 08:38] VITALS: BMI 18.6
[2020-09-06] MEDS ORDERED: ONDANSETRON 4 MG/2 ML VIAL IVPUSH ONE (08:59)
[2020-09-06] MEDS ORDERED: ACETAMINOPHEN 1000 MG/100 ML VIAL (NON FORMULARY) IVPB ONE (08:59)
[2020-09-06] MEDS ORDERED: ACETAMINOPHEN INJECTION 100 ML IVPB ONE (09:11)
[2020-09-06] MEDS ORDERED: ONDANSETRON 4 MG/2 ML VIAL ONE ×2 (09:11→18:11)
[2020-09-06 09:26] LABS: HEMATOCRIT 39.4 % (32.4-45.2); HEMOGLOBIN 12.5 GM/dL (10.7-15.3); MCH 28.8 pg (25.7-33.7); MCHC 31.8 g/dl (32.0-36.0); MEAN CELL VOLUME 90.6 fl (80-96); MEAN PLT VOLUME 9.3 fl (7.5-11.1); PLATELET COUNT 243 K/MM3 (134-434); RBC 4.35 M/mm3 (3.60-5.2); RDW 18.9 % (11.6-15.6)
[2020-09-06 09:32] LABS: INR 1.07 (0.83-1.09); PROTHROMBIN TIME (PATIENT) 13.1 SEC (9.7-13.0)
[2020-09-06 09:35] LABS: ACTIVATED PTT 27.8 SECONDS (25.2-36.5)
[2020-09-06 09:43] LABS: CHLORIDE 106 mmol/L (98-107); POTASSIUM 3.6 mmol/L (3.5-5.1); SODIUM 141 mmol/L (136-145)
[2020-09-06 09:48] LABS: ALBUMIN 2.9 g/dl (3.4-5.0); ANION GAP 10 MMOL/L (8-16); CALCIUM 8.5 mg/dL (8.5-10.1); CO2 26 mmol/L (21-32); GLUCOSE,RANDOM 79 mg/dL (74-106); LIPASE 190 U/L (73-393)
[2020-09-06 09:50] LABS: SGOT/AST 22 U/L (15-37); SGPT/ALT 16 U/L (13-61)
[2020-09-06 09:51] LABS: ALK PHOS 90 U/L (45-117); BILIRUBIN,TOTAL 0.4 mg/dL (0.2-1); CREATININE 0.6 mg/dL (0.55-1.3)
[2020-09-06 09:52] LABS: TOT PROT 6.9 g/dl (6.4-8.2)
[2020-09-06] MEDS ORDERED: FAMOTIDINE 20 MG/50 ML IVPB 20 MG/50 ML MG IVPB ONE ×2 (10:30→11:21)
[2020-09-06] MEDS ORDERED: DIPHTH,PERTUSS(ACELL),TET 0.5 ML DISP.SYRIN IM ONE (11:20)
[2020-09-06 11:22] LABS: ANISOCYTOSIS 0; MACROCYTOSIS 0; PLATELET ESTIMATE NORMAL
[2020-09-06] MEDS ORDERED: morphine CARPU-JECT 4 MG/1 ML DISP.SYRIN IVPUSH ONE (11:36)
[2020-09-06] MEDS ORDERED: METOCLOPRAMIDE HCL INJECTION 10 MG/2 ML VIAL IVPB ONE (11:36)
[2020-09-06] MEDS ORDERED: MORPHINE SULFATE 2 MG/ML VIAL ONE ×2 (12:04→17:00)
[2020-09-06] MEDS ORDERED: METOCLOPRAMIDE HCL INJECTION 10 MG/2 ML VIAL ONE (12:04)
[2020-09-06] MEDS: D5-1/2NS+20 MEQ KCL - 20 MEQ/1,000 ML INFUS.BAG IV SCH (17:13)
[2020-09-06] MEDS: MORPHINE SULFATE 2 MG/ML VIAL IVPUSH PRN ×2 (17:14→23:36)
[2020-09-06] MEDS ORDERED: ONDANSETRON 4 MG/2 ML VIAL IVPUSH PRN (18:00)
[2020-09-06] MEDS: VANCOMYCIN 250 MG/5 ML ORAL SOLUTION PO SCH (18:18)
[2020-09-06] MEDS ORDERED: GABAPENTIN 100 MG CAPSULE PO SCH (22:00)
[2020-09-06] MEDS: SERTRALINE HCL 50 MG TABLET (FP) PO SCH (22:39)
[2020-09-06] MEDS: cloNIDine HCL 0.1 MG TABLET PO SCH (22:39)
[2020-09-06] MEDS: PANTOPRAZOLE SODIUM 40 MG VIAL IVPUSH SCH (22:40)
[2020-09-06] MEDS: BUDESONIDE/FORMETEROL FUMARATE 160/4.5 mcg INHALER IH SCH (23:46)
[2020-09-07] MEDS: VANCOMYCIN 250 MG/5 ML ORAL SOLUTION PO SCH ×4 (01:27→17:00)
[2020-09-07] MEDS: MORPHINE SULFATE 2 MG/ML VIAL IVPUSH PRN ×4 (06:11→21:56)
[2020-09-07] MEDS: GABAPENTIN 300 MG CAPSULE PO SCH ×3 (06:12→21:41)
[2020-09-07] MEDS: D5-1/2NS+20 MEQ KCL - 20 MEQ/1,000 ML INFUS.BAG IV SCH ×2 (06:14→19:35)
[2020-09-07 08:51] LABS: BASO % 1.2 % (0-2.0); EOS % 2.7 % (0-4.5); HEMATOCRIT 35.6 % (32.4-45.2); LYMPH % 31.2 % (8-40); MCH 28.4 pg (25.7-33.7); MEAN CELL VOLUME 91.8 fl (80-96); MEAN PLT VOLUME 9.7 fl (7.5-11.1); NEUT % 50.9 % (42.8-82.8); PLATELET COUNT 199 K/MM3 (134-434); RBC 3.88 M/mm3 (3.60-5.2); RDW 18.8 % (11.6-15.6); WHITE BLOOD COUNT 3.6 K/mm3 (4.0-10.0)
[2020-09-07 09:02] LABS: POTASSIUM 3.8 mmol/L (3.5-5.1)
[2020-09-07 09:05] LABS: CALCIUM 8.2 mg/dL (8.5-10.1)
[2020-09-07 09:06] LABS: ALBUMIN 2.6 g/dl (3.4-5.0); BLOOD UREA NITROGEN 5.9 mg/dL (7-18); MAGNESIUM 1.7 mg/dL (1.8-2.4)
[2020-09-07 09:09] LABS: CREATININE 0.7 mg/dL (0.55-1.3); PHOSPHOROUS 2.8 mg/dL (2.5-4.9)
[2020-09-07 09:10] LABS: BILIRUBIN,TOTAL 0.4 mg/dL (0.2-1); TOT PROT 5.8 g/dl (6.4-8.2)
[2020-09-07] MEDS ORDERED: PT OWN MED DRAWER 7, Y5N ONE (09:23)
[2020-09-07] MEDS: diphenhydrAMINE HCL 25 MG CAPSULE (FP) PO SCH (10:45)
[2020-09-07] MEDS: amLODIPine BESYLATE 5 MG TABLET (FP) PO SCH (10:45)
[2020-09-07] MEDS: PANTOPRAZOLE SODIUM 40 MG VIAL IVPUSH SCH ×2 (10:45→21:41)
[2020-09-07] MEDS: ENOXAPARIN NA (PORCINE) 40 MG/0.4 ML DISP.SYRIN SQ SCH (10:45)
[2020-09-07] MEDS: cloNIDine HCL 0.1 MG TABLET PO SCH ×2 (10:45→21:41)
[2020-09-07] MEDS: BUDESONIDE/FORMETEROL FUMARATE 160/4.5 mcg INHALER IH SCH ×2 (10:46→21:56)
[2020-09-07] MEDS ORDERED: ALBUTEROL SO4 HFA INHALER IH PRN (16:08)
[2020-09-07] MEDS: SERTRALINE HCL 50 MG TABLET (FP) PO SCH (21:41)
[2020-09-08] MEDS: VANCOMYCIN 250 MG/5 ML ORAL SOLUTION PO SCH ×5 (00:19→23:17)
[2020-09-08] MEDS: MORPHINE SULFATE 2 MG/ML VIAL IVPUSH PRN ×5 (03:04→22:30)
[2020-09-08] MEDS: GABAPENTIN 300 MG CAPSULE PO SCH ×3 (06:14→21:07)
[2020-09-08 06:56] LABS: HEMOGLOBIN 10.9 GM/dL (10.7-15.3); MCH 29.4 pg (25.7-33.7); MCHC 32.1 g/dl (32.0-36.0); MEAN CELL VOLUME 91.7 fl (80-96); MEAN PLT VOLUME 9.6 fl (7.5-11.1); PLATELET COUNT 192 K/MM3 (134-434); RDW 18.9 % (11.6-15.6); WHITE BLOOD COUNT 3.1 K/mm3 (4.0-10.0)
[2020-09-08 07:07] LABS: POTASSIUM 4.3 mmol/L (3.5-5.1)
[2020-09-08 07:10] LABS: CALCIUM 8.1 mg/dL (8.5-10.1)
[2020-09-08 07:11] LABS: BLOOD UREA NITROGEN 4.1 mg/dL (7-18)
[2020-09-08 07:13] LABS: CREATININE 0.6 mg/dL (0.55-1.3)
[2020-09-08 07:14] LABS: ALBUMIN 2.5 g/dl (3.4-5.0)
[2020-09-08 07:15] LABS: BILIRUBIN,TOTAL 0.7 mg/dL (0.2-1); TOT PROT 5.8 g/dl (6.4-8.2)
[2020-09-08] MEDS: amLODIPine BESYLATE 5 MG TABLET (FP) PO SCH (09:24)
[2020-09-08] MEDS: diphenhydrAMINE HCL 25 MG CAPSULE (FP) PO SCH (09:24)
[2020-09-08] MEDS: ENOXAPARIN NA (PORCINE) 40 MG/0.4 ML DISP.SYRIN SQ SCH (09:24)
[2020-09-08] MEDS: PANTOPRAZOLE SODIUM 40 MG VIAL IVPUSH SCH ×2 (09:24→21:07)
[2020-09-08] MEDS: cloNIDine HCL 0.1 MG TABLET PO SCH ×2 (09:24→21:07)
[2020-09-08] MEDS: BUDESONIDE/FORMETEROL FUMARATE 160/4.5 mcg INHALER IH SCH ×2 (09:25→21:07)
[2020-09-08] MEDS: D5-1/2NS+20 MEQ KCL - 20 MEQ/1,000 ML INFUS.BAG IV SCH ×3 (10:21→23:17)
[2020-09-08] MEDS: NICOTINE 21 MG/24 HOURS TOPICAL PATCH TD SCH (13:03)
[2020-09-08] MEDS ORDERED: DEXTROSE 5%-WATER - 50 ML IVPB ONE ×2 (13:35→16:35)
[2020-09-08] MEDS ORDERED: PIPERACILLIN/TAZOBACTAM 3.375 GM VIAL IVPB ONE ×2 (13:35→16:35)
[2020-09-08] MEDS: PIPERACILLIN/TAZOB 3.375 GM 3.375 GM in DEXTROSE 5%-WATER - 50 ML IVPB SCH ×2 (13:41→17:56)
[2020-09-08] MEDS ORDERED: PT OWN MED DRAWER 7, Y5N ONE (20:59)
[2020-09-08] MEDS: SERTRALINE HCL 50 MG TABLET (FP) PO SCH (21:07)
[2020-09-08] MEDS: ACETAMINOPHEN 1000 MG/100 ML VIAL (NON FORMULARY) IVPB PRN (21:09)
[2020-09-08] MEDS: clonazePAM 2 MG TABLET PO SCH (22:30)
[2020-09-08] MEDS: ZOLPIDEM TARTRATE 5 MG TABLET PO PRN (23:17)
[2020-09-09] MEDS ORDERED: PIPERACILLIN/TAZOBACTAM 3.375 GM VIAL IVPB ONE ×3 (01:00→17:23)
[2020-09-09] MEDS ORDERED: DEXTROSE 5%-WATER - 50 ML IVPB ONE ×3 (01:00→17:23)
[2020-09-09] MEDS: PIPERACILLIN/TAZOB 3.375 GM 3.375 GM in DEXTROSE 5%-WATER - 50 ML IVPB SCH ×3 (01:16→17:30)
[2020-09-09] MEDS: MORPHINE SULFATE 2 MG/ML VIAL IVPUSH PRN ×3 (03:42→11:29)
[2020-09-09] MEDS: ACETAMINOPHEN 1000 MG/100 ML VIAL (NON FORMULARY) IVPB PRN (05:14)
[2020-09-09] MEDS: GABAPENTIN 300 MG CAPSULE PO SCH ×3 (05:14→21:54)
[2020-09-09] MEDS: VANCOMYCIN 250 MG/5 ML ORAL SOLUTION PO SCH ×3 (05:14→17:30)
[2020-09-09] MEDS: BUDESONIDE/FORMETEROL FUMARATE 160/4.5 mcg INHALER IH SCH ×2 (09:57→22:00)
[2020-09-09] MEDS: PANTOPRAZOLE SODIUM 40 MG VIAL IVPUSH SCH ×2 (10:00→21:58)
[2020-09-09] MEDS ORDERED: MORPHINE SULFATE 2 MG/ML VIAL IVPUSH PRN (12:45)
[2020-09-09] MEDS ORDERED: ACETAMINOPHEN 1000 MG/100 ML VIAL (NON FORMULARY) IVPB PRN (12:45)
[2020-09-09] MEDS ORDERED: PT OWN MED DRAWER 7, Y5N ONE (12:50)
[2020-09-09] MEDS: cloNIDine HCL 0.1 MG TABLET PO SCH ×2 (12:54→21:54)
[2020-09-09] MEDS: diphenhydrAMINE HCL 25 MG CAPSULE (FP) PO SCH (12:54)
[2020-09-09] MEDS: clonazePAM 2 MG TABLET PO SCH ×2 (12:55→22:52)
[2020-09-09] MEDS: ENOXAPARIN NA (PORCINE) 40 MG/0.4 ML DISP.SYRIN SQ SCH (12:55)
[2020-09-09] MEDS: amLODIPine BESYLATE 5 MG TABLET (FP) PO SCH (12:55)
[2020-09-09] MEDS: NICOTINE 21 MG/24 HOURS TOPICAL PATCH TD SCH (12:56)
[2020-09-09] MEDS: D5-1/2NS+20 MEQ KCL - 20 MEQ/1,000 ML INFUS.BAG IV SCH ×2 (13:16→15:50)
[2020-09-09] MEDS: morphine SULFATE 4 MG/ML VIAL IVPUSH PRN ×3 (13:17→23:23)
[2020-09-09] MEDS ORDERED: ALBUTEROL SO4 0.083% IH SOL 2.5 MG/3 ML VIAL.NEB. NEB PRN (19:46)
[2020-09-09] MEDS ORDERED: DICYCLOMINE HCL 10 MG CAPSULE PO PRN (21:27)
[2020-09-09] MEDS: SERTRALINE HCL 50 MG TABLET (FP) PO SCH (22:52)
[2020-09-09] MEDS: ZOLPIDEM TARTRATE 5 MG TABLET PO PRN (22:52)
[2020-09-09] MEDS ORDERED: diphenhydrAMINE HCL 25 MG CAPSULE (FP) PO ONE (23:16)
[2020-09-10] MEDS ORDERED: PIPERACILLIN/TAZOBACTAM 3.375 GM VIAL IVPB ONE ×2 (01:07→09:28)
[2020-09-10] MEDS ORDERED: DEXTROSE 5%-WATER - 50 ML IVPB ONE ×2 (01:07→09:28)
[2020-09-10] MEDS: VANCOMYCIN 250 MG/5 ML ORAL SOLUTION PO SCH ×4 (01:14→17:32)
[2020-09-10] MEDS: PIPERACILLIN/TAZOB 3.375 GM 3.375 GM in DEXTROSE 5%-WATER - 50 ML IVPB SCH ×2 (01:15→09:34)
[2020-09-10] MEDS ORDERED: PT OWN MED DRAWER 7, Y5N ONE ×5 (01:49→22:00)
[2020-09-10] MEDS: D5-1/2NS+20 MEQ KCL - 20 MEQ/1,000 ML INFUS.BAG IV SCH ×3 (04:00→18:12)
[2020-09-10] MEDS: morphine SULFATE 4 MG/ML VIAL IVPUSH PRN ×5 (05:15→23:20)
[2020-09-10] MEDS ORDERED: diphenhydrAMINE HCL 25 MG CAPSULE (FP) PO ONE (05:41)
[2020-09-10] MEDS: GABAPENTIN 300 MG CAPSULE PO SCH ×3 (06:09→21:54)
[2020-09-10] MEDS: clonazePAM 2 MG TABLET PO SCH ×2 (09:32→21:53)
[2020-09-10] MEDS: amLODIPine BESYLATE 5 MG TABLET (FP) PO SCH (09:32)
[2020-09-10] MEDS: diphenhydrAMINE HCL 25 MG CAPSULE (FP) PO SCH (09:32)
[2020-09-10] MEDS: cloNIDine HCL 0.1 MG TABLET PO SCH ×2 (09:32→21:53)
[2020-09-10] MEDS: BUDESONIDE/FORMETEROL FUMARATE 160/4.5 mcg INHALER IH SCH ×2 (09:35→21:54)
[2020-09-10] MEDS: PANTOPRAZOLE SODIUM 40 MG VIAL IVPUSH SCH ×2 (09:35→21:54)
[2020-09-10] MEDS: ENOXAPARIN NA (PORCINE) 40 MG/0.4 ML DISP.SYRIN SQ SCH (09:36)
[2020-09-10] MEDS: NICOTINE 21 MG/24 HOURS TOPICAL PATCH TD SCH (09:37)
[2020-09-10] MEDS: SUCRALFATE 1 GM TABLET (FP) PO SCH ×2 (16:30→21:54)
[2020-09-10] MEDS: ZOLPIDEM TARTRATE 5 MG TABLET PO PRN (23:19)
[2020-09-10] MEDS: SERTRALINE HCL 50 MG TABLET (FP) PO SCH (23:19)
[2020-09-11] MEDS: diphenhydrAMINE HCL 25 MG CAPSULE (FP) PO PRN ×2 (00:14→06:07)
[2020-09-11] MEDS: VANCOMYCIN 250 MG/5 ML ORAL SOLUTION PO SCH ×3 (00:14→11:19)
[2020-09-11] MEDS: morphine SULFATE 4 MG/ML VIAL IVPUSH PRN (03:49)
[2020-09-11] MEDS: GABAPENTIN 300 MG CAPSULE PO SCH (06:07)
[2020-09-11] MEDS ORDERED: PT OWN MED DRAWER 7, Y5N ONE ×3 (06:10→11:13)
[2020-09-11] MEDS: SUCRALFATE 1 GM TABLET (FP) PO SCH ×2 (06:15→11:19)
[2020-09-11 07:07] VITALS: BP 142/79; PULSE 82; TEMP 98.8
[2020-09-11] MEDS ORDERED: GABAPENTIN 300 MG CAPSULE PO SCH (09:39)
[2020-09-11] MEDS: amLODIPine BESYLATE 5 MG TABLET (FP) PO SCH (09:41)
[2020-09-11] MEDS: cloNIDine HCL 0.1 MG TABLET PO SCH (09:41)
[2020-09-11] MEDS: ENOXAPARIN NA (PORCINE) 40 MG/0.4 ML DISP.SYRIN SQ SCH (09:41)
[2020-09-11] MEDS: clonazePAM 2 MG TABLET PO SCH (09:41)
[2020-09-11] MEDS: BUDESONIDE/FORMETEROL FUMARATE 160/4.5 mcg INHALER IH SCH (09:41)
[2020-09-11] MEDS: NICOTINE 21 MG/24 HOURS TOPICAL PATCH TD SCH (09:41)
[2020-09-11] MEDS ORDERED: ACETAMINOPHEN 500 MG TABLET (FP) PO SCH (10:00)
[2020-09-11] MEDS ORDERED: LIDOCAINE 5% TOPICAL PATCH TP SCH (10:00)
[2020-09-11] MEDS ORDERED: PANTOPRAZOLE 40 MG TABLET PO SCH (10:00)
[2020-09-11] MEDS ORDERED: LIDOCAINE PATCH REMOVAL MC SCH (22:00)
== END 2020-09-11 11:36 | disposition home or self-care (01) | DRG 395 ==
LOC: JER 08:06 → JERBED 14:48 → J8W 22:23
PROVIDERS: ADMIT Family Medicine; ATTEND Family Medicine
DX: K66.0 Peritoneal adhesions (postprocedural) (postinfection) (principal); I10 Essential (primary) hypertension; J45.909 Unspecified asthma, uncomplicated; D64.9 Anemia, unspecified; M06.9 Rheumatoid arthritis, unspecified; F32.9 Major depressive disorder, single episode, unspecified; F41.9 Anxiety disorder, unspecified; R91.1 Solitary pulmonary nodule; N83.201 Unspecified ovarian cyst, right side; Z98.84 Bariatric surgery status; G89.28 Other chronic postprocedural pain; F17.210 Nicotine dependence, cigarettes, uncomplicated; M79.605 Pain in left leg; M79.604 Pain in right leg; R07.9 Chest pain, unspecified; K21.9 Gastro-esophageal reflux disease without esophagitis; F41.0 Panic disorder [episodic paroxysmal anxiety]
CPT/HCPCS: 36415; 71045-TC-FY; 74177-TC; 80053; 82150; 82550; 83690; 83735; 84100; 84443; 84484; 84703; 85025; 85027; 85610; 85730; 87040; 87045; 87046; 87205; 87324; 87449; 93005; 93010; 94640; 99285-25; C9803; J0131; J0735; Q9967; U0003

== ENCOUNTER 2020-09-17 01:49 | Emergency (ER) | payer BC ==
[2020-09-17 02:02] VITALS: TEMP 98.1; BMI 19.3
[2020-09-17] MEDS ORDERED: LACTATED RINGERS SOLUTION 1000 ML INFUS.BAG IV ONE (02:48)
[2020-09-17] MEDS ORDERED: FAMOTIDINE 20 MG/50 ML IVPB 20 MG/50 ML MG IVPB ONE ×2 (02:48→03:18)
[2020-09-17] MEDS ORDERED: ONDANSETRON 4 MG/2 ML VIAL IVPUSH ONE (02:48)
[2020-09-17] MEDS ORDERED: MAG HYDROX/AL HYDROX/SIMETH -MYLANTA- ORAL SUSPENSION PO ONE (02:48)
[2020-09-17] MEDS ORDERED: MAG HYDROX/AL HYDROX/SIMETH 30 ML UNIT-DOSE CUP ONE (03:06)
[2020-09-17] MEDS ORDERED: ONDANSETRON 4 MG/2 ML VIAL ONE (03:18)
[2020-09-17 04:34] LABS: CHLORIDE 102 mmol/L (98-107); SODIUM 130 mmol/L (136-145)
[2020-09-17 04:36] LABS: HEMATOCRIT 45.8 % (32.4-45.2); HEMOGLOBIN 15.2 GM/dL (10.7-15.3); MCHC 33.3 g/dl (32.0-36.0); MEAN CELL VOLUME 90.2 fl (80-96); MEAN PLT VOLUME 9.2 fl (7.5-11.1); PLATELET COUNT 241 K/MM3 (134-434); RBC 5.07 M/mm3 (3.60-5.2); RDW 19.4 % (11.6-15.6)
[2020-09-17 04:37] LABS: ALBUMIN 3.9 g/dl (3.4-5.0); BLOOD UREA NITROGEN 11.1 mg/dL (7-18); CO2 28 mmol/L (21-32); GLUCOSE,RANDOM 93 mg/dL (74-106); LIPASE 15 U/L (73-393)
[2020-09-17 04:40] LABS: CREATININE 1.1 mg/dL (0.55-1.3)
[2020-09-17 04:55] LABS: ALK PHOS 125 U/L (45-117); ANION GAP 1 MMOL/L (8-16); SGOT/AST 126 U/L (15-37)
[2020-09-17 05:02] LABS: POTASSIUM > 10.0 mmol/L (3.5-5.1)
[2020-09-17 05:37] LABS: PLATELET ESTIMATE ADEQUATE
[2020-09-17 06:08] LABS: CHLORIDE 104 mmol/L (98-107); POTASSIUM 3.1 mmol/L (3.5-5.1); SODIUM 138 mmol/L (136-145)
[2020-09-17 06:10] LABS: ANION GAP 6 MMOL/L (8-16); CALCIUM 9.4 mg/dL (8.5-10.1); CO2 28 mmol/L (21-32); GLUCOSE,RANDOM 90 mg/dL (74-106)
[2020-09-17 06:11] LABS: BLOOD UREA NITROGEN 10.2 mg/dL (7-18)
[2020-09-17 06:13] LABS: CREATININE 0.9 mg/dL (0.55-1.3); SGPT/ALT 31 U/L (13-61)
[2020-09-17 06:14] LABS: SGOT/AST 23 U/L (15-37)
[2020-09-17 06:15] LABS: BILIRUBIN,TOTAL 0.5 mg/dL (0.2-1); TOT PROT 8.1 g/dl (6.4-8.2)
[2020-09-17 06:16] LABS: ALK PHOS 123 U/L (45-117)
[2020-09-17 06:21] VITALS: BP 131/78
[2020-09-17 06:25] VITALS: PULSE 96
== END 2020-09-17 07:07 | disposition home or self-care (01) ==
LOC: JER 01:49
PROC: 3E033GC Introduction of Other Therapeutic Substance into Peripheral Vein, Percutaneous Approach (ICD-10-PCS; principal; 2020-09-17)
DX: R10.30 Lower abdominal pain, unspecified (principal)
CPT/HCPCS: 36415; 71045-TC-FY; 74019-TC-FY; 80053; 83605; 83690; 84484; 84702; 85025; 93005; 93010; 99285-25

== ENCOUNTER 2020-10-17 18:01 | Inpatient (IN) | payer BC ==
[2020-10-17 18:20] VITALS: BMI 17.9
[2020-10-17] MEDS ORDERED: ONDANSETRON 4 MG/2 ML VIAL IVPUSH ONE (18:42)
[2020-10-17] MEDS ORDERED: MAG HYDROX/AL HYDROX/SIMETH -MYLANTA- ORAL SUSPENSION PO ONE (18:43)
[2020-10-17] MEDS ORDERED: PANTOPRAZOLE SODIUM 40 MG VIAL IVPUSH ONE (18:43)
[2020-10-17] MEDS ORDERED: ONDANSETRON 4 MG/2 ML VIAL ONE (18:56)
[2020-10-17] MEDS ORDERED: PANTOPRAZOLE SODIUM 40 MG VIAL ONE (18:56)
[2020-10-17 19:23] LABS: HEMOGLOBIN 13.6 GM/dL (10.7-15.3); INR 0.9 (0.83-1.09); PROTHROMBIN TIME (PATIENT) 10.9 SEC (9.7-13.0); WHITE BLOOD COUNT 8.1 K/mm3 (4.0-10.0)
[2020-10-17 19:24] LABS: BASO % 0.5 % (0-2.0); EOS % 0.4 % (0-4.5); HEMATOCRIT 41.6 % (32.4-45.2); LYMPH % 9.6 % (8-40); MCHC 32.8 g/dl (32.0-36.0); MEAN CELL VOLUME 94.6 fl (80-96); MEAN PLT VOLUME 8.9 fl (7.5-11.1); MONO % 8.5 % (3.8-10.2); PLATELET COUNT 255 K/MM3 (134-434); RDW 18.9 % (11.6-15.6)
[2020-10-17 19:26] LABS: ACTIVATED PTT 28.2 SECONDS (25.2-36.5); POTASSIUM 3.5 mmol/L (3.5-5.1)
[2020-10-17 19:29] LABS: ALBUMIN 3.4 g/dl (3.4-5.0); BLOOD UREA NITROGEN 9.2 mg/dL (7-18); CALCIUM 9.7 mg/dL (8.5-10.1)
[2020-10-17 19:32] LABS: CREATININE 0.7 mg/dL (0.55-1.3)
[2020-10-17 19:34] LABS: BILIRUBIN,TOTAL 0.4 mg/dL (0.2-1); TOT PROT 7.4 g/dl (6.4-8.2)
[2020-10-17] MEDS ORDERED: ACETAMINOPHEN 1000 MG/100 ML VIAL (NON FORMULARY) IVPB ONE (20:34)
[2020-10-17 20:55] LABS: ANISOCYTOSIS 1+; MACROCYTOSIS 0; PLATELET ESTIMATE NORMAL; TARGET CELLS 1+
[2020-10-17] MEDS ORDERED: ACETAMINOPHEN INJECTION 100 ML IVPB ONE (21:01)
[2020-10-17] MEDS ORDERED: morphine CARPU-JECT 4 MG/1 ML DISP.SYRIN IVPUSH ONE (21:33)
[2020-10-17] MEDS ORDERED: PIPERACILLIN/TAZOB 3.375 GM 3.375 GM in DEXTROSE 5%-WATER - 50 ML IVPB ONE (21:37)
[2020-10-17] MEDS ORDERED: LACTATED RINGERS SOLUTION 1000 ML INFUS.BAG IV ONE (21:44)
[2020-10-17] MEDS ORDERED: PIPERACILLIN/TAZOB 3.375 GM 3.375 GM/50 ML BAG IVPB ONE (22:00)
[2020-10-17] MEDS ORDERED: morphine SULFATE 4 MG/ML VIAL ONE (22:48)
[2020-10-17] MEDS ORDERED: ONDANSETRON 4 MG/2 ML VIAL IVPUSH PRN (23:53)
[2020-10-17] MEDS ORDERED: morphine SULFATE 4 MG/ML VIAL IVPUSH PRN (23:53)
[2020-10-18] MEDS ORDERED: morphine SULFATE 4 MG/ML VIAL ONE (01:04)
[2020-10-18] MEDS ORDERED: BACITRACIN 0.9 GM PACKET ONE (01:05)
[2020-10-18] MEDS: MUPIROCIN 2% TOPICAL OINTMENT FOR DECOLONIZATION NS SCH ×3 (01:14→23:03)
[2020-10-18] MEDS: DEXTROSE 5%-LACTATED RINGERS 1,000 ML IV SCH (01:14)
[2020-10-18] MEDS ORDERED: LACTATED RINGERS SOLUTION 1000 ML INFUS.BAG IV ONE (01:20)
[2020-10-18] MEDS: NICOTINE 21 MG/24 HOURS TOPICAL PATCH TD SCH ×2 (02:18→18:55)
[2020-10-18] MEDS ORDERED: PIPERACILLIN/TAZOB 3.375 GM 3.375 GM/50 ML BAG IVPB ONE (06:18)
[2020-10-18] MEDS: PIPERACILLIN/TAZOB 3.375 GM 3.375 GM in DEXTROSE 5%-WATER - 50 ML IVPB SCH ×3 (06:23→18:54)
[2020-10-18] MEDS ORDERED: MIDAZOLAM HCL 2 MG/2 ML SINGLE DOSE VIAL ONE (07:38)
[2020-10-18] MEDS ORDERED: fentaNYL CITRATE 250 MCG/5 ML VIAL ONE (07:38)
[2020-10-18] MEDS ORDERED: LIDOCAINE HCL/PF 2% SDV 5ML VIAL ONE (07:39)
[2020-10-18] MEDS ORDERED: ROCURONIUM BROMIDE 50 MG/5 ML SYRINGE ONE (07:39)
[2020-10-18] MEDS ORDERED: PROPOFOL 20 ML ONE (07:39)
[2020-10-18] MEDS ORDERED: ISOSULFAN BLUE 50 MG/5 ML VIAL SQ ONE (08:55)
[2020-10-18] MEDS ORDERED: METHYLENE BLUE 50 MG/10 ML AMPUL ONE (08:56)
[2020-10-18 08:57] LABS: BASO % 0.2 % (0-2.0); EOS % 0.2 % (0-4.5); HEMATOCRIT 34.8 % (32.4-45.2); HEMOGLOBIN 11.6 GM/dL (10.7-15.3); LYMPH % 4.6 % (8-40); MCH 31.5 pg (25.7-33.7); MCHC 33.2 g/dl (32.0-36.0); MEAN CELL VOLUME 94.7 fl (80-96); MONO % 7.5 % (3.8-10.2); NEUT % 87.5 % (42.8-82.8); PLATELET COUNT 196 K/MM3 (134-434); RBC 3.67 M/mm3 (3.60-5.2); RDW 18.8 % (11.6-15.6); WHITE BLOOD COUNT 5.2 K/mm3 (4.0-10.0)
[2020-10-18 08:58] LABS: INR 0.92 (0.83-1.09); PROTHROMBIN TIME (PATIENT) 11.4 SEC (9.7-13.0)
[2020-10-18] MEDS ORDERED: HYDROmorphone HCl 2 MG/ML VIAL ONE ×2 (09:00→11:31)
[2020-10-18 09:10] LABS: ACTIVATED PTT 16.6 SECONDS (25.2-36.5)
[2020-10-18 09:15] LABS: CHLORIDE 108 mmol/L (98-107); POTASSIUM 3.2 mmol/L (3.5-5.1); SODIUM 141 mmol/L (136-145)
[2020-10-18 09:19] LABS: ALBUMIN 2.7 g/dl (3.4-5.0); ANION GAP 8 MMOL/L (8-16); BLOOD UREA NITROGEN 9.9 mg/dL (7-18); CALCIUM 8.1 mg/dL (8.5-10.1); CO2 26 mmol/L (21-32); GLUCOSE,RANDOM 93 mg/dL (74-106); MAGNESIUM 1.3 mg/dL (1.8-2.4)
[2020-10-18 09:22] LABS: CREATININE 0.9 mg/dL (0.55-1.3); SGOT/AST 10 U/L (15-37); SGPT/ALT 14 U/L (13-61)
[2020-10-18] MEDS ORDERED: LABETALOL HCL 5 MG/1 ML (100MG/20 ML VIAL) ONE (09:22)
[2020-10-18] MEDS ORDERED: DEXAMETHASONE SOD PHOSPHATE 4 MG/1 ML VIAL ONE (09:22)
[2020-10-18 09:23] LABS: PHOSPHOROUS 2.5 mg/dL (2.5-4.9)
[2020-10-18 09:24] LABS: BILIRUBIN,TOTAL 0.9 mg/dL (0.2-1); TOT PROT 5.6 g/dl (6.4-8.2)
[2020-10-18 09:37] LABS: ALK PHOS 84 U/L (45-117)
[2020-10-18] MEDS ORDERED: NEOSTIGMINE METHYLSULFATE 0.5 MG/ML - 10 ML MDV ONE (10:12)
[2020-10-18] MEDS ORDERED: HYDROmorphone HCl 2 MG/ML VIAL IVPB PRN (10:20)
[2020-10-18] MEDS ORDERED: BUPIVACAINE HCL/PF 0.5% (5 MG/ML) 30 ML VIAL IJ ONE (10:20)
[2020-10-18] MEDS ORDERED: SODIUM CHLORIDE 1,000 ML IV SCH (10:30)
[2020-10-18 12:04] LABS: HEMATOCRIT 31.9 % (32.4-45.2); HEMOGLOBIN 10.4 GM/dL (10.7-15.3); MCH 31.4 pg (25.7-33.7); MCHC 32.7 g/dl (32.0-36.0); MEAN PLT VOLUME 8.5 fl (7.5-11.1); PLATELET COUNT 190 K/MM3 (134-434); RBC 3.32 M/mm3 (3.60-5.2); RDW 19.3 % (11.6-15.6); WHITE BLOOD COUNT 7.2 K/mm3 (4.0-10.0)
[2020-10-18 12:28] LABS: POTASSIUM 3.5 mmol/L (3.5-5.1)
[2020-10-18 12:31] LABS: CALCIUM 7.7 mg/dL (8.5-10.1)
[2020-10-18 12:32] LABS: ALBUMIN 2.5 g/dl (3.4-5.0); BLOOD UREA NITROGEN 10.4 mg/dL (7-18)
[2020-10-18 12:35] LABS: CREATININE 0.9 mg/dL (0.55-1.3)
[2020-10-18 12:36] LABS: BILIRUBIN,TOTAL 0.5 mg/dL (0.2-1); TOT PROT 5.5 g/dl (6.4-8.2)
[2020-10-18] MEDS ORDERED: LORazepam 2 MG/ML SDV VIAL ONE (13:03)
[2020-10-18] MEDS: HYDROmorphone HCl 2 MG/ML VIAL IVPB PRN ×2 (13:08→20:05)
[2020-10-18] MEDS ORDERED: MAGNESIUM SULF 50% (8.12 MEQ/2 ML-1 GM VIAL) IVPB ONE (13:08)
[2020-10-18] MEDS ORDERED: LORazepam 2 MG/ML SDV VIAL IVPUSH ONE (13:10)
[2020-10-18] MEDS ORDERED: LORazepam 2 MG/ML SDV VIAL IVPUSH PRN ×2 (13:10→13:36)
[2020-10-18] MEDS ORDERED: DEXTROSE 5%-WATER - 50 ML IVPB ONE ×2 (14:41→18:54)
[2020-10-18] MEDS ORDERED: PIPERACILLIN/TAZOBACTAM 3.375 GM VIAL IVPB ONE ×2 (14:41→18:54)
[2020-10-18] MEDS: PANTOPRAZOLE SODIUM 40 MG VIAL IVPUSH SCH (14:52)
[2020-10-18] MEDS ORDERED: morphine SULFATE 4 MG/ML VIAL IVPUSH ONE (22:48)
[2020-10-18] MEDS: FAMOTIDINE 20 MG/50 ML IVPB 20 MG/50 ML MG IVPB SCH (23:03)
[2020-10-18] MEDS: CHLORHEXIDINE GLUCONATE 4% CLEANSER FOR DECOLONIZATION TP SCH (23:03)
[2020-10-19 00:06] LABS: BASO % 0.1 % (0-2.0); EOS % 0.2 % (0-4.5); HEMATOCRIT 39.2 % (32.4-45.2); HEMOGLOBIN 12.6 GM/dL (10.7-15.3); LYMPH % 9.5 % (8-40); MCH 31.3 pg (25.7-33.7); MEAN CELL VOLUME 97.6 fl (80-96); MEAN PLT VOLUME 8.6 fl (7.5-11.1); MONO % 5.3 % (3.8-10.2); NEUT % 84.9 % (42.8-82.8); PLATELET COUNT 194 K/MM3 (134-434); RBC 4.02 M/mm3 (3.60-5.2); RDW 19.4 % (11.6-15.6); WHITE BLOOD COUNT 7.3 K/mm3 (4.0-10.0)
[2020-10-19 00:30] LABS: POTASSIUM 3.6 mmol/L (3.5-5.1)
[2020-10-19 00:32] LABS: CALCIUM 8.3 mg/dL (8.5-10.1)
[2020-10-19 00:33] LABS: BLOOD UREA NITROGEN 9.4 mg/dL (7-18)
[2020-10-19 00:36] LABS: CREATININE 0.7 mg/dL (0.55-1.3)
[2020-10-19] MEDS: DEXTROSE 5%-LACTATED RINGERS 1,000 ML IV SCH ×2 (00:36→20:39)
[2020-10-19 00:37] LABS: BILIRUBIN,TOTAL 0.4 mg/dL (0.2-1); TOT PROT 6.6 g/dl (6.4-8.2)
[2020-10-19] MEDS ORDERED: PIPERACILLIN/TAZOB 3.375 GM 3.375 GM in DEXTROSE 5%-WATER - 50 ML IVPB SCH (02:00)
[2020-10-19] MEDS ORDERED: ACETAMINOPHEN 1000 MG/100 ML VIAL (NON FORMULARY) IVPB ONE (02:19)
[2020-10-19] MEDS ORDERED: PIPERACILLIN/TAZOBACTAM 3.375 GM VIAL IVPB ONE ×3 (02:28→16:18)
[2020-10-19] MEDS ORDERED: DEXTROSE 5%-WATER - 50 ML IVPB ONE ×3 (02:28→16:18)
[2020-10-19] MEDS: PIPERACILLIN/TAZOB 3.375 GM 3.375 GM in DEXTROSE 5%-WATER - 50 ML IVPB SCH ×3 (02:47→17:16)
[2020-10-19] MEDS: HYDROmorphone HCl 2 MG/ML VIAL IVPB PRN ×3 (03:21→10:48)
[2020-10-19 07:41] LABS: POTASSIUM 3.5 mmol/L (3.5-5.1)
[2020-10-19 07:46] LABS: HEMATOCRIT 29.8 % (32.4-45.2); HEMOGLOBIN 9.8 GM/dL (10.7-15.3); MCH 31.7 pg (25.7-33.7); MCHC 32.9 g/dl (32.0-36.0); MEAN CELL VOLUME 96.5 fl (80-96); PLATELET COUNT 172 K/MM3 (134-434); RBC 3.09 M/mm3 (3.60-5.2); RDW 19.4 % (11.6-15.6); WHITE BLOOD COUNT 6.1 K/mm3 (4.0-10.0)
[2020-10-19 07:57] LABS: BLOOD UREA NITROGEN 8.8 mg/dL (7-18); CALCIUM 7.6 mg/dL (8.5-10.1)
[2020-10-19 07:58] LABS: ALBUMIN 2.2 g/dl (3.4-5.0)
[2020-10-19 08:00] LABS: CREATININE 0.6 mg/dL (0.55-1.3); PHOSPHOROUS 2.8 mg/dL (2.5-4.9)
[2020-10-19 08:01] LABS: BILIRUBIN,TOTAL 0.4 mg/dL (0.2-1)
[2020-10-19] MEDS: FAMOTIDINE 20 MG/50 ML IVPB 20 MG/50 ML MG IVPB SCH ×2 (10:09→21:23)
[2020-10-19] MEDS: NICOTINE 21 MG/24 HOURS TOPICAL PATCH TD SCH (10:09)
[2020-10-19] MEDS: PANTOPRAZOLE SODIUM 40 MG VIAL IVPUSH SCH (10:09)
[2020-10-19] MEDS: MUPIROCIN 2% TOPICAL OINTMENT FOR DECOLONIZATION NS SCH (10:12)
[2020-10-19] MEDS ORDERED: ONDANSETRON 4 MG/2 ML VIAL IVPUSH PRN (12:50)
[2020-10-19] MEDS ORDERED: HYDROmorphone *PCA* 10MG/50ML DISP.SYRIN PCA SCH (13:00)
[2020-10-19] MEDS ORDERED: PCA PUMP NR ONE ×2 (14:01→14:23)
[2020-10-20] MEDS: MUPIROCIN 2% TOPICAL OINTMENT FOR DECOLONIZATION NS SCH ×3 (00:11→21:56)
[2020-10-20] MEDS: DEXTROSE 5%-LACTATED RINGERS 1,000 ML IV SCH (00:26)
[2020-10-20] MEDS ORDERED: morphine CARPU-JECT 4 MG/1 ML DISP.SYRIN IVPUSH ONE (00:40)
[2020-10-20] MEDS ORDERED: ACETAMINOPHEN 1000 MG/100 ML VIAL (NON FORMULARY) IVPB ONE (01:24)
[2020-10-20] MEDS: CHLORHEXIDINE GLUCONATE 4% CLEANSER FOR DECOLONIZATION TP SCH ×2 (01:31→21:56)
[2020-10-20] MEDS ORDERED: DEXTROSE 5%-WATER - 50 ML IVPB ONE ×3 (02:52→18:05)
[2020-10-20] MEDS ORDERED: PIPERACILLIN/TAZOBACTAM 3.375 GM VIAL IVPB ONE ×3 (02:52→18:05)
[2020-10-20] MEDS: morphine SULFATE 4 MG/ML VIAL IVPUSH PRN ×5 (03:33→22:18)
[2020-10-20] MEDS: PIPERACILLIN/TAZOB 3.375 GM 3.375 GM in DEXTROSE 5%-WATER - 50 ML IVPB SCH ×3 (03:56→18:26)
[2020-10-20] MEDS ORDERED: PCA PUMP NR ONE ×2 (07:55→07:58)
[2020-10-20 08:59] LABS: POTASSIUM 3.6 mmol/L (3.5-5.1)
[2020-10-20 09:01] LABS: ALBUMIN 1.9 g/dl (3.4-5.0); CALCIUM 7.1 mg/dL (8.5-10.1)
[2020-10-20 09:02] LABS: BLOOD UREA NITROGEN 6.6 mg/dL (7-18); MAGNESIUM 1.8 mg/dL (1.8-2.4)
[2020-10-20 09:03] LABS: HEMATOCRIT 31.6 % (32.4-45.2); HEMOGLOBIN 10.2 GM/dL (10.7-15.3); MCH 31.6 pg (25.7-33.7); MEAN CELL VOLUME 98.1 fl (80-96); RBC 3.22 M/mm3 (3.60-5.2); WHITE BLOOD COUNT 5.7 K/mm3 (4.0-10.0)
[2020-10-20 09:04] LABS: BASO % 0.6 % (0-2.0); EOS % 1.2 % (0-4.5); MCHC 32.1 g/dl (32.0-36.0); MEAN PLT VOLUME 9.1 fl (7.5-11.1); MONO % 12.6 % (3.8-10.2); NEUT % 73.6 % (42.8-82.8); PLATELET COUNT 171 K/MM3 (134-434); RDW 19.4 % (11.6-15.6)
[2020-10-20 09:05] LABS: PHOSPHOROUS 2.8 mg/dL (2.5-4.9)
[2020-10-20 09:06] LABS: TOT PROT 4.8 g/dl (6.4-8.2)
[2020-10-20 09:07] LABS: CREATININE 0.7 mg/dL (0.55-1.3)
[2020-10-20 09:08] LABS: BILIRUBIN,TOTAL 0.4 mg/dL (0.2-1)
[2020-10-20] MEDS: FAMOTIDINE 20 MG/50 ML IVPB 20 MG/50 ML MG IVPB SCH ×2 (10:48→21:55)
[2020-10-20] MEDS: PANTOPRAZOLE SODIUM 40 MG VIAL IVPUSH SCH (10:49)
[2020-10-20] MEDS: MULTIVIT-MINERALS ORAL LIQUID PO SCH (10:50)
[2020-10-20] MEDS: NICOTINE 21 MG/24 HOURS TOPICAL PATCH TD SCH ×2 (18:07→20:03)
[2020-10-21] MEDS ORDERED: DEXTROSE 5%-WATER - 50 ML IVPB ONE ×3 (01:22→17:46)
[2020-10-21] MEDS ORDERED: PIPERACILLIN/TAZOBACTAM 3.375 GM VIAL IVPB ONE ×3 (01:22→17:46)
[2020-10-21] MEDS: morphine SULFATE 4 MG/ML VIAL IVPUSH PRN ×6 (01:30→22:30)
[2020-10-21] MEDS: PIPERACILLIN/TAZOB 3.375 GM 3.375 GM in DEXTROSE 5%-WATER - 50 ML IVPB SCH ×4 (01:30→17:50)
[2020-10-21] MEDS: DEXTROSE 5%-LACTATED RINGERS 1,000 ML IV SCH (01:31)
[2020-10-21 09:06] LABS: BASO % 0.2 % (0-2.0); EOS % 0.8 % (0-4.5); HEMATOCRIT 25.4 % (32.4-45.2); MCH 30.6 pg (25.7-33.7); MCHC 31.3 g/dl (32.0-36.0); MEAN CELL VOLUME 97.6 fl (80-96); MONO % 8.6 % (3.8-10.2); NEUT % 78.4 % (42.8-82.8); PLATELET COUNT 198 K/MM3 (134-434); RDW 18.3 % (11.6-15.6); WHITE BLOOD COUNT 4.3 K/mm3 (4.0-10.0)
[2020-10-21] MEDS: MUPIROCIN 2% TOPICAL OINTMENT FOR DECOLONIZATION NS SCH (09:11)
[2020-10-21] MEDS: FAMOTIDINE 20 MG/50 ML IVPB 20 MG/50 ML MG IVPB SCH ×2 (09:17→09:43)
[2020-10-21] MEDS: NICOTINE 21 MG/24 HOURS TOPICAL PATCH TD SCH ×2 (09:18→09:43)
[2020-10-21] MEDS: PANTOPRAZOLE SODIUM 40 MG VIAL IVPUSH SCH ×2 (09:18→09:43)
[2020-10-21] MEDS ORDERED: ONDANSETRON 4 MG/2 ML VIAL IVPUSH PRN ×2 (09:26)
[2020-10-21] MEDS ORDERED: DEXTROSE 5%-LACTATED RINGERS 1,000 ML IV SCH (09:26)
[2020-10-21] MEDS ORDERED: LORazepam 2 MG/ML SDV VIAL IVPUSH PRN (09:26)
[2020-10-21 09:36] LABS: POTASSIUM 3.2 mmol/L (3.5-5.1)
[2020-10-21 09:40] LABS: ALBUMIN 1.6 g/dl (3.4-5.0); CALCIUM 7.5 mg/dL (8.5-10.1)
[2020-10-21 09:44] LABS: CREATININE 0.7 mg/dL (0.55-1.3)
[2020-10-21 09:46] LABS: BILIRUBIN,TOTAL 0.3 mg/dL (0.2-1); TOT PROT 4.1 g/dl (6.4-8.2)
[2020-10-21 09:54] LABS: BLOOD UREA NITROGEN 1.9 mg/dL (7-18)
[2020-10-21] MEDS: MULTIVIT-MINERALS ORAL LIQUID PO SCH (10:53)
[2020-10-21] MEDS: KCL 10 MEQ IVPB 10 MEQ/100 ML INFUS.BAG IVPB SCH ×2 (14:09→17:05)
[2020-10-21] MEDS ORDERED: ACETAMINOPHEN 1000 MG/100 ML VIAL (NON FORMULARY) IVPB PRN (15:35)
[2020-10-21 15:42] LABS: HEMATOCRIT 29.9 % (32.4-45.2); HEMOGLOBIN 9.8 GM/dL (10.7-15.3); MCH 31.2 pg (25.7-33.7); MCHC 32.6 g/dl (32.0-36.0); MEAN CELL VOLUME 95.7 fl (80-96); MEAN PLT VOLUME 8.9 fl (7.5-11.1); PLATELET COUNT 263 K/MM3 (134-434); RBC 3.13 M/mm3 (3.60-5.2); RDW 18.4 % (11.6-15.6); WHITE BLOOD COUNT 5.1 K/mm3 (4.0-10.0)
[2020-10-21 15:42] LABS: ALBUMIN 2.1 g/dl (3.4-5.0); CALCIUM 8.4 mg/dL (8.5-10.1); POTASSIUM 3.2 mmol/L (3.5-5.1)
[2020-10-21 15:43] LABS: CREATININE 0.5 mg/dL (0.55-1.3)
[2020-10-21 15:45] LABS: BILIRUBIN,TOTAL 0.6 mg/dL (0.2-1); TOT PROT 5.2 g/dl (6.4-8.2)
[2020-10-21 15:53] LABS: BLOOD UREA NITROGEN 1.8 mg/dL (7-18)
[2020-10-21] MEDS ORDERED: KCL 10 MEQ IVPB 10 MEQ/100 ML INFUS.BAG IVPB SCH (16:45)
[2020-10-21] MEDS: BENZOCAINE/MENTH/CETYLPYRD CL 1 EACH LOZENGE MM PRN (18:15)
[2020-10-22] MEDS: FAMOTIDINE 20 MG/50 ML IVPB 20 MG/50 ML MG IVPB SCH ×3 (02:02→22:20)
[2020-10-22] MEDS: PIPERACILLIN/TAZOB 3.375 GM 3.375 GM in DEXTROSE 5%-WATER - 50 ML IVPB SCH ×4 (02:02→18:41)
[2020-10-22] MEDS: BENZOCAINE/MENTH/CETYLPYRD CL 1 EACH LOZENGE MM PRN (04:39)
[2020-10-22] MEDS ORDERED: DEXTROSE 5%-WATER - 50 ML IVPB ONE ×2 (09:04→18:40)
[2020-10-22] MEDS ORDERED: PIPERACILLIN/TAZOBACTAM 3.375 GM VIAL IVPB ONE ×2 (09:04→18:40)
[2020-10-22] MEDS: PANTOPRAZOLE SODIUM 40 MG VIAL IVPUSH SCH (09:20)
[2020-10-22] MEDS: MULTIVIT-MINERALS ORAL LIQUID PO SCH (09:20)
[2020-10-22] MEDS: NICOTINE 21 MG/24 HOURS TOPICAL PATCH TD SCH (09:21)
[2020-10-22] MEDS: morphine SULFATE 4 MG/ML VIAL IVPUSH PRN (09:22)
[2020-10-22] MEDS ORDERED: METOPROLOL TARTRATE 5 MG/5 ML VIAL IVPUSH PRN (09:55)
[2020-10-22] MEDS ORDERED: D5-NS + 40 MEQ KCL - 40 MEQ/1,000 ML INFUS.BAG IV SCH (10:00)
[2020-10-22 10:18] LABS: BASO % 0.9 % (0-2.0); EOS % 1.3 % (0-4.5); HEMATOCRIT 30.7 % (32.4-45.2); HEMOGLOBIN 10.3 GM/dL (10.7-15.3); LYMPH % 13.5 % (8-40); MCH 31.5 pg (25.7-33.7); MCHC 33.4 g/dl (32.0-36.0); MEAN CELL VOLUME 94.1 fl (80-96); MEAN PLT VOLUME 8.9 fl (7.5-11.1); MONO % 13.2 % (3.8-10.2); NEUT % 71.1 % (42.8-82.8); PLATELET COUNT 283 K/MM3 (134-434); RBC 3.26 M/mm3 (3.60-5.2); RDW 18.1 % (11.6-15.6)
[2020-10-22 10:36] LABS: POTASSIUM 3.4 mmol/L (3.5-5.1)
[2020-10-22 10:39] LABS: CALCIUM 8.7 mg/dL (8.5-10.1)
[2020-10-22 10:40] LABS: ALBUMIN 2.2 g/dl (3.4-5.0)
[2020-10-22 10:43] LABS: CREATININE 0.5 mg/dL (0.55-1.3)
[2020-10-22 10:44] LABS: BILIRUBIN,TOTAL 0.7 mg/dL (0.2-1); TOT PROT 5.6 g/dl (6.4-8.2)
[2020-10-22 10:57] LABS: BLOOD UREA NITROGEN 2.5 mg/dL (7-18)
[2020-10-22] MEDS ORDERED: D5-NS + 20 MEQ KCL - 20 MEQ/1,000 ML INFUS.BAG IV SCH ×2 (12:15→17:00)
[2020-10-22] MEDS ORDERED: HYDROmorphone HCl 2 MG/ML VIAL IVPUSH STA (15:28)
[2020-10-22] MEDS ORDERED: oxyCODONE HCL 5 MG TABLET PO PRN (17:15)
[2020-10-22] MEDS ORDERED: ACETAMINOPHEN 325 MG TABLET (FP) PO PRN (17:15)
[2020-10-22] MEDS: HYDROmorphone HCl 2 MG/ML VIAL IVPB PRN (18:41)
[2020-10-22] MEDS ORDERED: ALBUTEROL SO4 0.083% IH SOL 2.5 MG/3 ML VIAL.NEB. NEB PRN (20:43)
[2020-10-22] MEDS ORDERED: ZOLPIDEM TARTRATE 5 MG TABLET PO PRN (22:00)
[2020-10-22] MEDS: GABAPENTIN 300 MG CAPSULE PO SCH (22:16)
[2020-10-22] MEDS: clonazePAM 0.5 MG TABLET PO SCH (22:16)
[2020-10-23] MEDS ORDERED: PIPERACILLIN/TAZOBACTAM 3.375 GM VIAL IVPB ONE ×2 (00:59→09:30)
[2020-10-23] MEDS ORDERED: DEXTROSE 5%-WATER - 50 ML IVPB ONE ×2 (01:00→09:30)
[2020-10-23] MEDS: PIPERACILLIN/TAZOB 3.375 GM 3.375 GM in DEXTROSE 5%-WATER - 50 ML IVPB SCH ×2 (01:04→10:20)
[2020-10-23] MEDS: GABAPENTIN 300 MG CAPSULE PO SCH (06:47)
[2020-10-23] MEDS: HYDROmorphone HCl 2 MG/ML VIAL IVPB PRN ×2 (07:58→13:00)
[2020-10-23 08:26] LABS: POTASSIUM 4.6 mmol/L (3.5-5.1)
[2020-10-23 08:39] LABS: ALBUMIN 2.1 g/dl (3.4-5.0); CALCIUM 8.6 mg/dL (8.5-10.1)
[2020-10-23 08:40] LABS: BLOOD UREA NITROGEN 3.8 mg/dL (7-18)
[2020-10-23 08:41] LABS: CREATININE 0.6 mg/dL (0.55-1.3)
[2020-10-23 08:43] LABS: BILIRUBIN,TOTAL 0.7 mg/dL (0.2-1)
[2020-10-23 08:44] LABS: TOT PROT 5.7 g/dl (6.4-8.2)
[2020-10-23 08:48] LABS: BASO % 0.6 % (0-2.0); EOS % 2.2 % (0-4.5); HEMATOCRIT 31.3 % (32.4-45.2); HEMOGLOBIN 10.3 GM/dL (10.7-15.3); MCH 31.1 pg (25.7-33.7); MCHC 32.8 g/dl (32.0-36.0); MEAN CELL VOLUME 94.9 fl (80-96); MEAN PLT VOLUME 8.8 fl (7.5-11.1); MONO % 28.2 % (3.8-10.2); PLATELET COUNT 303 K/MM3 (134-434); RDW 18.3 % (11.6-15.6); WHITE BLOOD COUNT 6.2 K/mm3 (4.0-10.0)
[2020-10-23 09:54] LABS: ANISOCYTOSIS 0; MACROCYTOSIS 0; PLATELET ESTIMATE NORMAL
[2020-10-23] MEDS: PANTOPRAZOLE SODIUM 40 MG VIAL IVPUSH SCH (10:20)
[2020-10-23] MEDS: clonazePAM 0.5 MG TABLET PO SCH (10:20)
[2020-10-23] MEDS: BENZOCAINE/MENTH/CETYLPYRD CL 1 EACH LOZENGE MM PRN (10:20)
[2020-10-23] MEDS: MULTIVIT-MINERALS ORAL LIQUID PO SCH (10:20)
[2020-10-23] MEDS: FAMOTIDINE 20 MG/50 ML IVPB 20 MG/50 ML MG IVPB SCH (10:20)
[2020-10-23] MEDS: NICOTINE 21 MG/24 HOURS TOPICAL PATCH TD SCH (10:21)
[2020-10-23] MEDS ORDERED: ACETAMINOPHEN 1000 MG/100 ML VIAL (NON FORMULARY) IVPB ONE (12:07)
[2020-10-23 13:41] VITALS: BP 122/63; PULSE 86; TEMP 97.9
== END 2020-10-23 13:33 | disposition home or self-care (01) | DRG 327 ==
LOC: JER 18:01 → JERBED 21:52 → JICU 10-18 12:31 → J6WEST-2 10-20 00:38
PROVIDERS: ADMIT Internal Medicine; ATTEND Family Medicine
PROC: 0DQ64ZZ Repair Stomach, Percutaneous Endoscopic Approach (ICD-10-PCS; 2020-10-18)
PROC: 0DJ04ZZ Inspection of Upper Intestinal Tract, Percutaneous Endoscopic Approach (ICD-10-PCS; 2020-10-18)
PROC: 0DNW3ZZ Release Peritoneum, Percutaneous Approach (ICD-10-PCS; 2020-10-18)
PROC: 0DNU4ZZ Release Omentum, Percutaneous Endoscopic Approach (ICD-10-PCS; 2020-10-18)
PROC: 3E1M38Z Irrigation of Peritoneal Cavity using Irrigating Substance, Percutaneous Approach (ICD-10-PCS; 2020-10-18)
PROC: 0DU647Z Supplement Stomach with Autologous Tissue Substitute, Percutaneous Endoscopic Approach (ICD-10-PCS; principal; 2020-10-18 08:15)
DX: K28.5 Chronic or unspecified gastrojejunal ulcer with perforation (principal); R64 Cachexia; Z68.1 Body mass index [BMI] 19.9 or less, adult; K66.0 Peritoneal adhesions (postprocedural) (postinfection); K21.9 Gastro-esophageal reflux disease without esophagitis; F41.8 Other specified anxiety disorders; I10 Essential (primary) hypertension; J45.40 Moderate persistent asthma, uncomplicated; F17.210 Nicotine dependence, cigarettes, uncomplicated; M06.9 Rheumatoid arthritis, unspecified; D64.9 Anemia, unspecified; K92.0 Hematemesis; E87.6 Hypokalemia; M79.7 Fibromyalgia; Z79.1 Long term (current) use of non-steroidal anti-inflammatories (NSAID); Z98.84 Bariatric surgery status
CPT/HCPCS: 36415; 71045-TC-FY; 74018-TC-FY; 74177-TC; 74240-TC-FY; 80053; 82272; 82550; 82962; 83605; 83690; 83735; 84100; 84484; 84703; 85025; 85027; 85610; 85730; 86850; 86900; 86901; 87040; 93005; 93010; 94760; 97116-GP; 97162-GP; 99285-25; C9803; J0131; Q9967; Q9968; U0003

== ENCOUNTER 2020-10-24 22:44 | Emergency (ER) | payer BC ==
[2020-10-24 23:09] VITALS: BP 132/91; PULSE 89; TEMP 98; BMI 17.9
== END 2020-10-24 23:10 | disposition home or self-care (01) ==
LOC: FER 22:44
DX: S62.91XA Unspecified fracture of right hand, initial encounter for closed fracture (principal)
CPT/HCPCS: 99282-25

== ENCOUNTER 2020-10-26 15:45 | Emergency (ER) | payer BC ==
[2020-10-26] MEDS ORDERED: ONDANSETRON 4 MG/2 ML VIAL IVPUSH ONE (16:02)
[2020-10-26] MEDS ORDERED: SODIUM CHLORIDE 1,000 ML IV STA (16:02)
[2020-10-26] MEDS ORDERED: ACETAMINOPHEN 1000 MG/100 ML VIAL (NON FORMULARY) IVPB ONE (16:02)
[2020-10-26 16:03] VITALS: TEMP 97.8; BMI 17.9
[2020-10-26] MEDS ORDERED: ACETAMINOPHEN INJECTION 100 ML IVPB ONE (16:43)
[2020-10-26] MEDS ORDERED: ONDANSETRON 4 MG/2 ML VIAL ONE (16:44)
[2020-10-26 16:49] LABS: MCH 31.8 pg (25.7-33.7); MCHC 33.4 g/dl (32.0-36.0); MEAN CELL VOLUME 95.2 fl (80-96); MEAN PLT VOLUME 8.4 fl (7.5-11.1); PLATELET COUNT 600 K/MM3 (134-434); RBC 3.79 M/mm3 (3.60-5.2); RDW 17.7 % (11.6-15.6); WHITE BLOOD COUNT 4.5 K/mm3 (4.0-10.8)
[2020-10-26 16:59] LABS: ADD RBC MORPHOLOGY YES
[2020-10-26 17:03] LABS: ALBUMIN 2.9 g/dl (3.4-5.0); BILIRUBIN,TOTAL 0.7 mg/dl (0.2-1); CALCIUM 8.9 mg/dl (8.5-10); CREATININE 0.6 mg/dl (0.55-1.3); MAGNESIUM 1.5 mg/dL (1.8-2.4); PHOSPHOROUS 2.5 mg/dl (2.5-4.9); POTASSIUM 3.6 mmol/L (3.5-5.1); TOT PROT 6.8 g/dl (6.4-8.2)
[2020-10-26 17:21] LABS: ACTIVATED PTT 29.2 SECONDS (25.2-36.5); INR 1.17 (0.82-1.09)
[2020-10-26] MEDS ORDERED: METOCLOPRAMIDE HCL INJECTION 10 MG/2 ML VIAL IVPUSH ONE (17:54)
[2020-10-26] MEDS ORDERED: MAGNESIUM SULF 50% (8.12 MEQ/2 ML-1 GM VIAL) IVPB ONE (17:54)
[2020-10-26] MEDS ORDERED: METOCLOPRAMIDE HCL INJECTION 10 MG/2 ML VIAL ONE (17:57)
[2020-10-26] MEDS ORDERED: MAGNESIUM 1GM/D5W - 1 GM/100 ML IVPB IVPB ONE (17:58)
[2020-10-26 18:05] LABS: ANISOCYTOSIS 1+
[2020-10-26 19:13] VITALS: BP 157/88; PULSE 64
== END 2020-10-26 19:36 | disposition home or self-care (01) ==
LOC: FER 15:45
PROC: 3E0233Z Introduction of Anti-inflammatory into Muscle, Percutaneous Approach (ICD-10-PCS; principal; 2020-10-26)
PROC: 3E033GC Introduction of Other Therapeutic Substance into Peripheral Vein, Percutaneous Approach (ICD-10-PCS; 2020-10-26)
PROC: 3E0337Z Introduction of Electrolytic and Water Balance Substance into Peripheral Vein, Percutaneous Approach (ICD-10-PCS; 2020-10-26)
DX: R11.2 Nausea with vomiting, unspecified (principal); R19.7 Diarrhea, unspecified; R10.9 Unspecified abdominal pain
CPT/HCPCS: 36415; 71045-TC-FY; 74177-TC; 80053; 83605; 83735; 84100; 85025; 85610; 85730; 93005; 99285-25; J0131; Q9967

== ENCOUNTER 2020-11-08 18:02 | Emergency (ER) | payer BC ==
[2020-11-08] MEDS ORDERED: SODIUM CHLORIDE 1,000 ML IV STA (19:47)
[2020-11-08] MEDS ORDERED: ACETAMINOPHEN 1000 MG/100 ML VIAL (NON FORMULARY) IVPB ONE (19:48)
[2020-11-08] MEDS ORDERED: ONDANSETRON 4 MG/2 ML VIAL IVPUSH ONE (19:48)
[2020-11-08] MEDS ORDERED: FAMOTIDINE 20 MG/50 ML IVPB 20 MG/50 ML MG IVPB ONE ×2 (19:50→20:30)
[2020-11-08] MEDS ORDERED: MAG HYDROX/AL HYDROX/SIMETH -MYLANTA- ORAL SUSPENSION PO ONE (19:50)
[2020-11-08] MEDS ORDERED: MAG HYDROX/AL HYDROX/SIMETH 30 ML UNIT-DOSE CUP ONE (20:29)
[2020-11-08] MEDS ORDERED: ACETAMINOPHEN INJECTION 100 ML IVPB ONE (20:29)
[2020-11-08] MEDS ORDERED: ONDANSETRON 4 MG/2 ML VIAL ONE (20:30)
[2020-11-08 20:34] VITALS: BMI 16.9
[2020-11-08 20:46] LABS: BASO % 1.5 % (0-2.0); EOS % 0.3 % (0-4.5); HEMATOCRIT 33.4 % (32.4-45.2); HEMOGLOBIN 11.2 GM/dL (10.7-15.3); LYMPH % 33.4 % (8-40); MCH 32.2 pg (25.7-33.7); MCHC 33.6 g/dl (32.0-36.0); MEAN CELL VOLUME 95.8 fl (80-96); MEAN PLT VOLUME 9.2 fl (7.5-11.1); MONO % 11.4 % (3.8-10.2); NEUT % 53.4 % (42.8-82.8); PLATELET COUNT 249 K/MM3 (134-434); RBC 3.48 M/mm3 (3.60-5.2); RDW 17.8 % (11.6-15.6); RETICULOCYTES 1.43 % (0.5-1.5); WHITE BLOOD COUNT 2.9 K/mm3 (4.0-10.0)
[2020-11-08 20:56] LABS: INR 1.15 (0.83-1.09); PROTHROMBIN TIME (PATIENT) 14.1 SEC (9.7-13.0)
[2020-11-08 20:58] LABS: ACTIVATED PTT 28.5 SECONDS (25.2-36.5)
[2020-11-08 21:01] LABS: POTASSIUM 3.4 mmol/L (3.5-5.1)
[2020-11-08 21:03] LABS: LIPASE 118 U/L (73-393); MAGNESIUM 1.2 mg/dL (1.8-2.4)
[2020-11-08 21:05] LABS: CALCIUM 8.2 mg/dL (8.5-10.1)
[2020-11-08 21:06] LABS: ALBUMIN 2.9 g/dl (3.4-5.0); PHOSPHOROUS 3.3 mg/dL (2.5-4.9)
[2020-11-08 21:10] LABS: BILIRUBIN,TOTAL 0.8 mg/dL (0.2-1)
[2020-11-08 21:17] LABS: CREATININE 0.8 mg/dL (0.55-1.3)
[2020-11-08] MEDS ORDERED: POTASSIUM CHLORIDE TABS 20 MEQ TABLET.ER (FP) PO ONE ×2 (21:27→21:59)
[2020-11-08] MEDS ORDERED: MAGNESIUM SULF 50% (8.12 MEQ/2 ML-1 GM VIAL) IVPB ONE (21:27)
[2020-11-08] MEDS ORDERED: MAGNESIUM SULF 50% (8.12 MEQ/2 ML-1 GM VIAL) ONE (22:07)
[2020-11-08 23:23] LABS: PH,URINE 5.5 (5.0-8.0); URINE APPEARANCE CLEAR; URINE BILIRUBIN NEGATIVE (NEGATIVE); URINE COLOR YELLOW; URINE GLUCOSE (UA) NEGATIVE (NEGATIVE); URINE KETONE NEGATIVE (NEGATIVE); URINE LEUK ESTERASE NEGATIVE (NEGATIVE); URINE NITRITE NEGATIVE (NEGATIVE); URINE PROTEIN NEGATIVE (NEGATIVE); URINE UROBILINOGEN 0.2 mg/dL (0.2-1.0)
[2020-11-09 01:34] VITALS: BP 136/86; PULSE 75; TEMP 98.1
== END 2020-11-09 02:22 | disposition home or self-care (01) ==
LOC: JER 18:02
PROC: 3E033GC Introduction of Other Therapeutic Substance into Peripheral Vein, Percutaneous Approach (ICD-10-PCS; principal; 2020-11-08)
DX: K25.3 Acute gastric ulcer without hemorrhage or perforation (principal); R10.32 Left lower quadrant pain
CPT/HCPCS: 36415; 74177-TC; 80053; 81003; 82550; 83605; 83615; 83690; 83735; 84100; 84484; 84703; 85025; 85045; 85610; 85730; 86850; 86900; 86901; 93005; 93010; 99285-25; J0131; Q9967

== ENCOUNTER 2021-04-11 02:29 | Emergency (ER) | payer BC ==
[2021-04-11 02:48] VITALS: BMI 27.4
[2021-04-11] MEDS ORDERED: MAG HYDROX/AL HYDROX/SIMETH 30 ML UNIT-DOSE CUP PO ONE (03:10)
[2021-04-11] MEDS ORDERED: FAMOTIDINE 20 MG/50 ML IVPB 20 MG/50 ML MG IVPB ONE ×2 (03:10→03:32)
[2021-04-11] MEDS ORDERED: SUCRALFATE 1 GM TABLET (FP) PO ONE (03:11)
[2021-04-11] MEDS ORDERED: SUCRALFATE 1 GM TABLET (FP) ONE (03:32)
[2021-04-11] MEDS ORDERED: MAG HYDROX/AL HYDROX/SIMETH 30 ML UNIT-DOSE CUP ONE (03:32)
[2021-04-11] MEDS ORDERED: ALBUTEROL SO4 2.5/IPRATROPIUM 0.5 INH SOL 3 ML VIAL.NEB. NEB ONE (03:32)
[2021-04-11] MEDS: ALBUTEROL SO4 2.5/IPRATROPIUM 0.5 INH SOL 3 ML VIAL.NEB. NEB SCH ×4 (03:37→04:16)
[2021-04-11 04:41] LABS: BASO % 1.1 % (0-2.0); EOS % 1.5 % (0-4.5); HEMATOCRIT 33.8 % (32.4-45.2); HEMOGLOBIN 11.3 GM/dL (10.7-15.3); LYMPH % 23.1 % (8-40); MCH 29.6 pg (25.7-33.7); MCHC 33.3 g/dl (32.0-36.0); MEAN CELL VOLUME 88.9 fl (80-96); MEAN PLT VOLUME 8.4 fl (7.5-11.1); MONO % 13.9 % (3.8-10.2); NEUT % 60.4 % (42.8-82.8); PLATELET COUNT 202 10^3/uL (134-434); RDW 18.9 % (11.6-15.6); WHITE BLOOD COUNT 4.4 K/mm3 (4.0-10.0)
[2021-04-11 04:56] LABS: CHLORIDE 105 mmol/L (98-107); SODIUM 140 mmol/L (136-145)
[2021-04-11 04:58] LABS: ALBUMIN 3.2 g/dl (3.4-5.0); ANION GAP 8 MMOL/L (8-16); BLOOD UREA NITROGEN 12.3 mg/dL (7-18); CALCIUM 8.5 mg/dL (8.5-10.1); CO2 27 mmol/L (21-32); GLUCOSE,RANDOM 120 mg/dL (74-106)
[2021-04-11 05:01] VITALS: BP 108/73; PULSE 99; TEMP 97.7
[2021-04-11 05:01] LABS: CREATININE 0.9 mg/dL (0.55-1.3); SGOT/AST 41 U/L (15-37); SGPT/ALT 39 U/L (13-61)
[2021-04-11 05:03] LABS: BILIRUBIN,TOTAL 0.3 mg/dL (0.2-1); TOT PROT 7.2 g/dl (6.4-8.2)
[2021-04-11 05:04] LABS: ALK PHOS 119 U/L (45-117)
[2021-04-11] MEDS ORDERED: ACETAMINOPHEN 500 MG TABLET (FP) PO ONE (08:11)
== END 2021-04-11 08:35 | disposition home or self-care (01) ==
LOC: JER 02:29
PROC: 3E033NZ Introduction of Analgesics, Hypnotics, Sedatives into Peripheral Vein, Percutaneous Approach (ICD-10-PCS; principal; 2021-04-11)
PROC: 3E0F7GC Introduction of Other Therapeutic Substance into Respiratory Tract, Via Natural or Artificial Opening (ICD-10-PCS; 2021-04-11)
PROC: 3E033GC Introduction of Other Therapeutic Substance into Peripheral Vein, Percutaneous Approach (ICD-10-PCS; 2021-04-11)
PROC: 3E033GC Introduction of Other Therapeutic Substance into Peripheral Vein, Percutaneous Approach (ICD-10-PCS; 2021-04-11)
DX: R07.9 Chest pain, unspecified (principal)
CPT/HCPCS: 36415; 71045-TC-FY; 80053; 84443; 84484; 84703; 85025; 85379; 93005; 93010; 99285-25

== ENCOUNTER 2021-04-11 14:03 | Emergency (ER) | payer BC ==
[2021-04-11 14:33] VITALS: TEMP 98.2; BMI 27.4
[2021-04-11] MEDS ORDERED: ONDANSETRON 4 MG/2 ML VIAL IVPUSH ONE (15:36)
[2021-04-11] MEDS ORDERED: SODIUM CHLORIDE 0.9% 500 ML INFUS.BAG IV ONE (15:36)
[2021-04-11] MEDS ORDERED: ONDANSETRON 4 MG/2 ML VIAL ONE (16:40)
[2021-04-11] MEDS ORDERED: ACETAMINOPHEN 500 MG TABLET (FP) PO ONE (16:54)
[2021-04-11] MEDS ORDERED: ACETAMINOPHEN 325 MG TABLET (FP) ONE (16:59)
[2021-04-11] MEDS ORDERED: ACETAMINOPHEN 1000 MG/100 ML VIAL (NON FORMULARY) IVPB ONE (17:01)
[2021-04-11] MEDS ORDERED: ACETAMINOPHEN INJECTION 100 ML IVPB ONE (17:10)
[2021-04-11 17:29] LABS: BASO % 0.6 % (0-2.0); EOS % 1.6 % (0-4.5); HEMATOCRIT 35.7 % (32.4-45.2); HEMOGLOBIN 11.6 GM/dL (10.7-15.3); MCH 29.4 pg (25.7-33.7); MCHC 32.6 g/dl (32.0-36.0); MEAN CELL VOLUME 90.2 fl (80-96); MEAN PLT VOLUME 8.9 fl (7.5-11.1); MONO % 9.3 % (3.8-10.2); NEUT % 55.5 % (42.8-82.8); PLATELET COUNT 226 10^3/uL (134-434); RBC 3.96 M/mm3 (3.60-5.2); RDW 18.8 % (11.6-15.6); WHITE BLOOD COUNT 5.5 K/mm3 (4.0-10.0)
[2021-04-11 17:49] LABS: BLOOD UREA NITROGEN 11.7 mg/dL (7-18); CALCIUM 9.1 mg/dL (8.5-10.1)
[2021-04-11 17:50] LABS: ALBUMIN 3.6 g/dl (3.4-5.0)
[2021-04-11 17:53] LABS: CREATININE 0.9 mg/dL (0.55-1.3)
[2021-04-11 17:54] LABS: BILIRUBIN,TOTAL 0.3 mg/dL (0.2-1); TOT PROT 7.7 g/dl (6.4-8.2)
[2021-04-11 19:59] VITALS: BP 133/89; PULSE 79
== END 2021-04-11 20:38 | disposition home or self-care (01) ==
LOC: JER 14:03
PROC: 3E033NZ Introduction of Analgesics, Hypnotics, Sedatives into Peripheral Vein, Percutaneous Approach (ICD-10-PCS; principal; 2021-04-11)
PROC: 3E033GC Introduction of Other Therapeutic Substance into Peripheral Vein, Percutaneous Approach (ICD-10-PCS; 2021-04-11)
PROC: 3E033GC Introduction of Other Therapeutic Substance into Peripheral Vein, Percutaneous Approach (ICD-10-PCS; 2021-04-11)
PROC: 3E0F7GC Introduction of Other Therapeutic Substance into Respiratory Tract, Via Natural or Artificial Opening (ICD-10-PCS; 2021-04-11)
DX: R07.9 Chest pain, unspecified (principal)
CPT/HCPCS: 36415; 71275-TC; 80053; 85025; 99285-25; J0131; Q9967

== ENCOUNTER 2021-04-24 20:14 | Emergency (ER) | payer OTHER, BC ==
[2021-04-24 20:37] VITALS: BP 145/96; PULSE 86; TEMP 98.3; BMI 28.4
[2021-04-24] MEDS ORDERED: ACETAMINOPHEN 500 MG TABLET (FP) PO ONE (20:49)
[2021-04-24] MEDS ORDERED: ACETAMINOPHEN 500 MG TABLET (FP) ONE (20:59)
== END 2021-04-24 21:58 | disposition home or self-care (01) ==
LOC: FER 20:14
DX: S39.012A Strain of muscle, fascia and tendon of lower back, initial encounter (principal)
CPT/HCPCS: 72100-TC-FY; 99284-25

== ENCOUNTER 2021-05-15 19:10 | Emergency (ER) | payer BC, OTHER ==
[2021-05-15 19:18] VITALS: BP 131/89; PULSE 89; TEMP 97.6; BMI 26.6
[2021-05-15] MEDS ORDERED: SODIUM CHLORIDE 0.9% 500 ML INFUS.BAG IV ONE (21:00)
[2021-05-15] MEDS ORDERED: FAMOTIDINE 20 MG/50 ML IVPB 20 MG/50 ML MG IVPB ONE ×2 (21:00→21:33)
[2021-05-15] MEDS ORDERED: ONDANSETRON 4 MG/2 ML VIAL IVPUSH ONE (21:00)
[2021-05-15] MEDS ORDERED: ACETAMINOPHEN 1000 MG/100 ML VIAL (NON FORMULARY) IVPB ONE (21:00)
[2021-05-15] MEDS ORDERED: ACETAMINOPHEN INJECTION 100 ML IVPB ONE (21:33)
[2021-05-15] MEDS ORDERED: ONDANSETRON 4 MG/2 ML VIAL ONE (21:33)
[2021-05-15 21:50] LABS: BASO % 1.1 % (0-2.0); HEMATOCRIT 35.3 % (32.4-45.2); LYMPH % 20.7 % (8-40); MCHC 33.9 g/dl (32.0-36.0); MEAN CELL VOLUME 91.6 fl (80-96); MEAN PLT VOLUME 8.4 fl (7.5-11.1); MONO % 7.6 % (3.8-10.2); NEUT % 69.6 % (42.8-82.8); PLATELET COUNT 281 10^3/uL (134-434); RBC 3.85 M/mm3 (3.60-5.2); RDW 17.7 % (11.6-15.6); WHITE BLOOD COUNT 4.7 K/mm3 (4.0-10.0)
[2021-05-15 21:51] LABS: INR 0.96 (0.83-1.09); PROTHROMBIN TIME (PATIENT) 11.8 SEC (9.7-13.0)
[2021-05-15 21:54] LABS: ACTIVATED PTT 28.9 SECONDS (25.2-36.5)
[2021-05-15 22:02] LABS: CHLORIDE 106 mmol/L (98-107); SODIUM 133 mmol/L (136-145)
[2021-05-15 22:04] LABS: CALCIUM 7.8 mg/dL (8.5-10.1)
[2021-05-15 22:05] LABS: ALBUMIN 2.7 g/dl (3.4-5.0); CO2 22 mmol/L (21-32); GLUCOSE,RANDOM 86 mg/dL (74-106); LIPASE < 10 U/L (73-393)
[2021-05-15 22:09] LABS: BILIRUBIN,TOTAL 0.3 mg/dL (0.2-1); TOT PROT 7.6 g/dl (6.4-8.2)
[2021-05-15 22:10] LABS: ALK PHOS 112 U/L (45-117)
[2021-05-15 22:49] LABS: ANION GAP 4 MMOL/L (8-16); SGOT/AST 58 U/L (15-37); SGPT/ALT 26 U/L (13-61)
[2021-05-16 00:30] LABS: PH,URINE 5.5 (5.0-8.0); URINE APPEARANCE CLEAR; URINE BILIRUBIN NEGATIVE (NEGATIVE); URINE COLOR YELLOW; URINE GLUCOSE (UA) NEGATIVE (NEGATIVE); URINE KETONE NEGATIVE (NEGATIVE); URINE LEUK ESTERASE NEGATIVE (NEGATIVE); URINE NITRITE NEGATIVE (NEGATIVE); URINE PROTEIN NEGATIVE (NEGATIVE); URINE UROBILINOGEN 0.2 mg/dL (0.2-1.0)
[2021-05-16 00:32] LABS: ALBUMIN 2.9 g/dl (3.4-5.0)
[2021-05-16 00:36] LABS: BILIRUBIN,TOTAL 0.4 mg/dL (0.2-1); TOT PROT 7.8 g/dl (6.4-8.2)
== END 2021-05-16 02:36 | disposition home or self-care (01) ==
LOC: JER 19:10
PROC: 3E033GC Introduction of Other Therapeutic Substance into Peripheral Vein, Percutaneous Approach (ICD-10-PCS; principal; 2021-05-15)
DX: R10.84 Generalized abdominal pain (principal)
CPT/HCPCS: 36415; 71045-TC-FY; 74176-TC; 80053; 81003; 82550; 82553; 83605; 83690; 84484; 84703; 85025; 85610; 85730; 87086; 87186; 93005; 93010; 99285-25; C9803; J0131; U0003; U0005

== ENCOUNTER 2021-05-19 10:30 | Emergency (ER) | payer BC, OTHER ==
[2021-05-19 10:50] VITALS: BMI 26.6
[2021-05-19] MEDS ORDERED: METOCLOPRAMIDE HCL INJECTION 10 MG/2 ML VIAL IVPB ONE (11:15)
[2021-05-19] MEDS ORDERED: PANTOPRAZOLE SODIUM 40 MG VIAL IVPUSH ONE ×2 (11:15→12:33)
[2021-05-19] MEDS ORDERED: LACTATED RINGERS SOLUTION 1000 ML INFUS.BAG IV ONE (11:16)
[2021-05-19] MEDS ORDERED: PANTOPRAZOLE SODIUM 40 MG/100 ML BAG IVPB ONE ×2 (11:32→13:18)
[2021-05-19] MEDS ORDERED: METOCLOPRAMIDE HCL INJECTION 10 MG/2 ML VIAL ONE (11:32)
[2021-05-19 12:05] LABS: HEMATOCRIT 36.6 % (32.4-45.2); HEMOGLOBIN 12.2 GM/dL (10.7-15.3); MCH 31.5 pg (25.7-33.7); MCHC 33.5 g/dl (32.0-36.0); MEAN CELL VOLUME 94.1 fl (80-96); MEAN PLT VOLUME 8.7 fl (7.5-11.1); PLATELET COUNT 238 10^3/uL (134-434); RBC 3.89 M/mm3 (3.60-5.2); RDW 17.2 % (11.6-15.6); WHITE BLOOD COUNT 5.3 K/mm3 (4.0-10.0)
[2021-05-19 12:10] LABS: INR 0.9 (0.83-1.09); PROTHROMBIN TIME (PATIENT) 11.1 SEC (9.7-13.0)
[2021-05-19 12:13] LABS: ACTIVATED PTT 28.9 SECONDS (25.2-36.5)
[2021-05-19 12:22] LABS: CHLORIDE 110 mmol/L (98-107); SODIUM 142 mmol/L (136-145)
[2021-05-19 12:25] LABS: ANION GAP 6 MMOL/L (8-16); CALCIUM 9.1 mg/dL (8.5-10.1); CO2 25 mmol/L (21-32); GLUCOSE,RANDOM 89 mg/dL (74-106); LIPASE 193 U/L (73-393); MAGNESIUM 2.2 mg/dL (1.8-2.4)
[2021-05-19 12:26] LABS: ALBUMIN 3.5 g/dl (3.4-5.0)
[2021-05-19 12:28] LABS: CREATININE 0.8 mg/dL (0.55-1.3); SGOT/AST 24 U/L (15-37); SGPT/ALT 27 U/L (13-61)
[2021-05-19 12:30] LABS: BILIRUBIN,TOTAL 0.3 mg/dL (0.2-1); TOT PROT 7.9 g/dl (6.4-8.2)
[2021-05-19 12:31] LABS: ALK PHOS 107 U/L (45-117)
[2021-05-19] MEDS ORDERED: OCTREOTIDE ACETATE 50 MCG/1 ML - 1 ML VIAL IVPUSH ONE (12:34)
[2021-05-19] MEDS ORDERED: CEFTRIAXONE 1,000 MG in DEXTROSE 5%-WATER - 50 ML IVPB ONE (12:34)
[2021-05-19] MEDS ORDERED: DEXTROSE 5% IVPB SCH (12:45)
[2021-05-19] MEDS ORDERED: OCTREOTIDE ACETATE IVPB SCH (12:45)
[2021-05-19] MEDS ORDERED: WATER IVPB SCH (12:45)
[2021-05-19] MEDS ORDERED: ONDANSETRON 4 MG/2 ML VIAL IVPUSH ONE (12:55)
[2021-05-19] MEDS ORDERED: ONDANSETRON 4 MG/2 ML VIAL ONE (13:19)
[2021-05-19] MEDS ORDERED: CEFTRIAXONE 1 GM/50 ML BAG ONE (13:19)
[2021-05-19] MEDS ORDERED: OCTREOTIDE ACETATE 100 MCG/1 ML ONE (13:19)
[2021-05-19 14:32] LABS: SERUM PREGNANCY TEST NEGATIVE
[2021-05-19 17:04] LABS: PH,URINE 6.5 (5.0-8.0); URINE APPEARANCE CLEAR; URINE BILIRUBIN NEGATIVE (NEGATIVE); URINE COLOR YELLOW; URINE GLUCOSE (UA) NEGATIVE (NEGATIVE); URINE KETONE NEGATIVE (NEGATIVE); URINE LEUK ESTERASE NEGATIVE (NEGATIVE); URINE NITRITE NEGATIVE (NEGATIVE); URINE PROTEIN NEGATIVE (NEGATIVE); URINE UROBILINOGEN 0.2 mg/dL (0.2-1.0)
[2021-05-19 19:05] VITALS: BP 136/90; PULSE 82; TEMP 98.2
== END 2021-05-19 20:05 | disposition left against medical advice (07) ==
LOC: JER 10:30
PROC: 3E033GC Introduction of Other Therapeutic Substance into Peripheral Vein, Percutaneous Approach (ICD-10-PCS; principal; 2021-05-19)
DX: K62.5 Hemorrhage of anus and rectum (principal); R10.13 Epigastric pain
CPT/HCPCS: 36415; 71045-TC-FY; 74177-TC; 80053; 81003; 82272; 82550; 83605; 83690; 83735; 84484; 84703; 85025; 85610; 85730; 87077; 87086; 93005; 93010; 99285-25; C9803; U0003; U0005

== ENCOUNTER 2021-05-22 18:00 | Emergency (ER) | payer BC ==
[2021-05-22 18:13] VITALS: BP 143/87; PULSE 96; TEMP 98.7; BMI 26.6
[2021-05-22] MEDS ORDERED: ACETAMINOPHEN 1000 MG/100 ML VIAL (NON FORMULARY) IVPB ONE (18:23)
[2021-05-22] MEDS ORDERED: ONDANSETRON 4 MG/2 ML VIAL IVPUSH ONE (18:23)
[2021-05-22] MEDS ORDERED: SODIUM CHLORIDE 1,000 ML IV STA (18:23)
[2021-05-22] MEDS ORDERED: FAMOTIDINE 20 MG/50 ML IVPB 20 MG/50 ML MG IVPB ONE ×2 (18:23→18:49)
[2021-05-22] MEDS ORDERED: ACETAMINOPHEN INJECTION 100 ML IVPB ONE (18:49)
[2021-05-22] MEDS ORDERED: ONDANSETRON 4 MG/2 ML VIAL ONE (18:49)
[2021-05-22 19:31] LABS: BASO % 0.4 % (0-2.0); EOS % 0.6 % (0-4.5); HEMATOCRIT 41.2 % (32.4-45.2); HEMOGLOBIN 13.6 GM/dl (10.7-15.3); LYMPH % 17.7 % (8-40); MCH 31.3 pg (25.7-33.7); MEAN CELL VOLUME 94.7 fl (80-96); MEAN PLT VOLUME 8.7 fl (7.5-11.1); NEUT % 75.3 % (42.8-82.8); PLATELET COUNT 251 10^3/uL (134-434); RBC 4.34 M/mm3 (3.60-5.2); RDW 16.5 % (11.6-15.6); WHITE BLOOD COUNT 5.5 K/mm3 (4.0-10.8)
[2021-05-22 19:41] LABS: ALBUMIN 3.9 g/dl (3.4-5.0); BILIRUBIN,TOTAL 0.4 mg/dl (0.2-1); CREATININE 0.9 mg/dl (0.55-1.3); TOT PROT 7.8 g/dl (6.4-8.2)
[2021-05-22] MEDS ORDERED: KCL 10 MEQ IVPB 10 MEQ/100 ML INFUS.BAG IVPB SCH (20:00)
[2021-05-22] MEDS ORDERED: POTASSIUM CHLORIDE TABS 20 MEQ TABLET.ER (FP) PO ONE ×2 (20:00→20:02)
[2021-05-22] MEDS ORDERED: KCL 10 MEQ IVPB 10 MEQ/100 ML INFUS.BAG IVPB ONE (20:02)
[2021-05-22] MEDS ORDERED: FLUCONAZOLE 150 MG TABLET PO ONE ×2 (20:15→20:51)
[2021-05-22 20:17] LABS: EPITHELIAL CELLS MODERATE /hpf
== END 2021-05-22 21:10 | disposition home or self-care (01) ==
LOC: FER 18:00
PROC: 3E033NZ Introduction of Analgesics, Hypnotics, Sedatives into Peripheral Vein, Percutaneous Approach (ICD-10-PCS; principal; 2021-05-22)
PROC: 3E033GC Introduction of Other Therapeutic Substance into Peripheral Vein, Percutaneous Approach (ICD-10-PCS; 2021-05-22)
PROC: 3E033GC Introduction of Other Therapeutic Substance into Peripheral Vein, Percutaneous Approach (ICD-10-PCS; 2021-05-22)
PROC: 3E033GC Introduction of Other Therapeutic Substance into Peripheral Vein, Percutaneous Approach (ICD-10-PCS; 2021-05-22)
PROC: 3E0337Z Introduction of Electrolytic and Water Balance Substance into Peripheral Vein, Percutaneous Approach (ICD-10-PCS; 2021-05-22)
DX: R11.2 Nausea with vomiting, unspecified (principal); R19.7 Diarrhea, unspecified
CPT/HCPCS: 36415; 80053; 81003; 81015; 83690; 85025; 87086; 87186; 93005; 99285-25; C9803; J0131; U0003; U0005

== ENCOUNTER 2021-10-29 13:51 | Emergency (ER) | payer BC ==
[2021-10-29 14:08] VITALS: BMI 22.8
[2021-10-29] MEDS ORDERED: SODIUM CHLORIDE 0.9% 500 ML INFUS.BAG IV ONE (14:25)
[2021-10-29] MEDS ORDERED: chlordiazePOXIDE HCL 25 MG CAPSULE PO ONE (14:25)
[2021-10-29] MEDS ORDERED: THIAMINE HCL 200 MG/2 ML VIAL IVPB ONE (14:25)
[2021-10-29] MEDS ORDERED: ALBUTEROL SO4 2.5/IPRATROPIUM 0.5 INH SOL 3 ML VIAL.NEB. NEB ONE ×3 (14:27→14:41)
[2021-10-29] MEDS ORDERED: chlordiazePOXIDE HCL 25 MG CAPSULE ONE (14:30)
[2021-10-29] MEDS ORDERED: THIAMINE HCL 200 MG/2 ML VIAL ONE (14:30)
[2021-10-29 15:06] LABS: ALBUMIN 3.5 g/dl (3.4-5.0); BILIRUBIN,TOTAL 0.7 mg/dl (0.2-1); CALCIUM 8.8 mg/dl (8.5-10); CREATININE 0.8 mg/dl (0.55-1.3); MAGNESIUM 1.5 mg/dL (1.8-2.4); PHOSPHOROUS 1.6 mg/dl (2.5-4.9); TOT PROT 7.1 g/dl (6.4-8.2)
[2021-10-29] MEDS ORDERED: predniSONE 20 MG TABLET (UD) PO ONE (15:23)
[2021-10-29 15:31] LABS: BASO % 0.3 % (0-2.0); EOS % 0.9 % (0-4.5); HEMATOCRIT 35.5 % (32.4-45.2); HEMOGLOBIN 11.9 GM/dL (10.7-15.3); LYMPH % 17.4 % (8-40); MCH 32.5 pg (25.7-33.7); MCHC 33.6 g/dl (32.0-36.0); MEAN CELL VOLUME 96.5 fl (80-96); MEAN PLT VOLUME 8.8 fl (7.5-11.1); MONO % 6.2 % (3.8-10.2); NEUT % 75.2 % (42.8-82.8); PLATELET COUNT 150 10^3/uL (134-434); RBC 3.68 M/mm3 (3.60-5.2); RDW 15.1 % (11.6-15.6); WHITE BLOOD COUNT 4.3 K/mm3 (4.0-10.0)
[2021-10-29] MEDS ORDERED: diazePAM CARPU-JECT 10 MG/2 ML DISP.SYRIN IVPUSH ONE (15:33)
[2021-10-29] MEDS ORDERED: predniSONE 20 MG TABLET (UD) ONE (15:41)
[2021-10-29] MEDS ORDERED: diazePAM CARPU-JECT 10 MG/2 ML DISP.SYRIN ONE (15:42)
[2021-10-29 16:22] VITALS: BP 103/64; TEMP 98.6
[2021-10-29 16:28] VITALS: PULSE 95
== END 2021-10-29 17:43 | disposition home or self-care (01) ==
LOC: FER 13:51
PROC: 3E0F7GC Introduction of Other Therapeutic Substance into Respiratory Tract, Via Natural or Artificial Opening (ICD-10-PCS; principal; 2021-10-29)
PROC: 3E033NZ Introduction of Analgesics, Hypnotics, Sedatives into Peripheral Vein, Percutaneous Approach (ICD-10-PCS; 2021-10-29)
PROC: 3E033GC Introduction of Other Therapeutic Substance into Peripheral Vein, Percutaneous Approach (ICD-10-PCS; 2021-10-29)
DX: R00.0 Tachycardia, unspecified (principal)
CPT/HCPCS: 36415; 71045-TC-FY; 80053; 83735; 84100; 84703; 85025; 93005; 99285-25

== ENCOUNTER 2021-11-03 12:39 | Inpatient (IN) | payer BC ==
[2021-11-03 13:10] VITALS: TEMP 99.2; BMI 22.7
[2021-11-03] MEDS ORDERED: SODIUM CHLORIDE 0.9% 500 ML INFUS.BAG IV ONE (13:26)
[2021-11-03] MEDS ORDERED: diazePAM CARPU-JECT 10 MG/2 ML DISP.SYRIN IVPUSH ONE (13:28)
[2021-11-03] MEDS ORDERED: ONDANSETRON 4 MG/2 ML VIAL IVPUSH ONE (13:28)
[2021-11-03] MEDS ORDERED: THIAMINE HCL 200 MG/2 ML VIAL IVPB ONE (13:28)
[2021-11-03] MEDS ORDERED: ALBUTEROL SO4 2.5/IPRATROPIUM 0.5 INH SOL 3 ML VIAL.NEB. NEB ONE ×2 (13:38→13:46)
[2021-11-03] MEDS ORDERED: THIAMINE HCL 200 MG/2 ML VIAL ONE (13:44)
[2021-11-03] MEDS ORDERED: ONDANSETRON 4 MG/2 ML VIAL ONE (13:45)
[2021-11-03] MEDS ORDERED: diazePAM CARPU-JECT 10 MG/2 ML DISP.SYRIN ONE (13:45)
[2021-11-03 15:00] LABS: ALBUMIN 3.4 g/dl (3.4-5.0); BILIRUBIN,TOTAL 0.5 mg/dl (0.2-1); CALCIUM 7.9 mg/dl (8.5-10); CREATININE 0.6 mg/dl (0.55-1.3); MAGNESIUM 1.5 mg/dL (1.8-2.4); PHOSPHOROUS 2.4 mg/dl (2.5-4.9)
[2021-11-03] MEDS ORDERED: CALCIUM GLUCONATE 10% - 1,000 MG/10 ML VIAL IVPB ONE (15:06)
[2021-11-03] MEDS ORDERED: NAPH,MB-DB/K PH,MBDB POWDER PACKET PO ONE ×2 (15:07→22:00)
[2021-11-03] MEDS ORDERED: MAGNESIUM 1GM/D5W - 1 GM/100 ML IVPB IVPB ONE (15:15)
[2021-11-03] MEDS ORDERED: CALCIUM GLUCONATE 10% - 1,000 MG/10 ML VIAL ONE (15:15)
[2021-11-03 15:36] LABS: HEMATOCRIT 35.7 % (32.4-45.2); HEMOGLOBIN 11.6 GM/dL (10.7-15.3); MCH 31.4 pg (25.7-33.7); MCHC 32.5 g/dl (32.0-36.0); MEAN CELL VOLUME 96.5 fl (80-96); MEAN PLT VOLUME 8.5 fl (7.5-11.1); PLATELET COUNT 271 10^3/uL (134-434); RDW 15.5 % (11.6-15.6); WHITE BLOOD COUNT 5.1 K/mm3 (4.0-10.0)
[2021-11-03 16:09] LABS: ANISOCYTOSIS 1+; MACROCYTOSIS 1+; PLATELET ESTIMATE NORMAL; TARGET CELLS 1+
[2021-11-03 16:34] LABS: VENOUS BASE EXCESS -4.9 mmol/L (-2-2); VENOUS O2 SATURATION 65.8 % (70-80); VENOUS PCO2 41.6 mmHg (38-52); VENOUS PH 7.319 (7.310-7.410)
[2021-11-03 16:47] LABS: CALCIUM 7.6 mg/dl (8.5-10); CREATININE 0.6 mg/dl (0.55-1.3)
[2021-11-03] MEDS ORDERED: LORazepam 1 MG TABLET PO PRN (17:13)
[2021-11-03] MEDS ORDERED: POTASSIUM CHLORIDE 10 MEQ in DEXTROSE 5%-NORMAL SALINE 1,000 ML IVPB SCH (17:15)
[2021-11-03] MEDS ORDERED: ACETAMINOPHEN 1000 MG/100 ML BAG IVPB ONE (17:27)
[2021-11-03] MEDS: LORazepam 1 MG TABLET PO SCH ×2 (18:10→22:59)
[2021-11-03] MEDS ORDERED: LORazepam 0.5 MG TABLET ONE ×2 (18:16→22:58)
[2021-11-03] MEDS ORDERED: ACETAMINOPHEN INJECTION 100 ML IVPB ONE (18:26)
[2021-11-03] MEDS: THIAMINE HCL 100 MG TABLET (FP) PO SCH (20:48)
[2021-11-03] MEDS: FOLIC ACID 1 MG TABLET (FP) PO SCH (20:48)
[2021-11-03] MEDS ORDERED: ALBUTEROL SO4 HFA INHALER IH PRN (21:38)
[2021-11-03] MEDS ORDERED: PANTOPRAZOLE SODIUM 40 MG VIAL ONE (21:56)
[2021-11-03] MEDS ORDERED: cloNIDine HCL 0.1 MG TABLET ONE (21:56)
[2021-11-03] MEDS ORDERED: ONDANSETRON *ODT* 4 MG TABLET SL SCH (22:00)
[2021-11-03] MEDS: cloNIDine HCL 0.1 MG TABLET PO SCH (22:00)
[2021-11-03] MEDS ORDERED: SERTRALINE HCL 50 MG TABLET (FP) PO SCH (22:00)
[2021-11-03] MEDS: PANTOPRAZOLE SODIUM 40 MG VIAL IVPUSH SCH (22:00)
[2021-11-03] MEDS: MULTIVITAMINS (DAILY MVI) TABLET (FP) PO SCH ×2 (22:19→22:20)
[2021-11-03] MEDS: BUDESONIDE/FORMETEROL FUMARATE 160/4.5 mcg INHALER IH SCH (22:20)
[2021-11-03] MEDS ORDERED: ONDANSETRON *ODT* 4 MG TABLET SL PRN (22:38)
[2021-11-03] MEDS: D5-NS + 20 MEQ KCL - 20 MEQ/1,000 ML INFUS.BAG IV SCH (23:04)
[2021-11-04] MEDS ORDERED: LORazepam 0.5 MG TABLET ONE (04:39)
[2021-11-04] MEDS: LORazepam 1 MG TABLET PO SCH ×2 (04:45→11:00)
[2021-11-04] MEDS ORDERED: ALBUTEROL SO4 2.5/IPRATROPIUM 0.5 INH SOL 3 ML VIAL.NEB. NEB PRN (07:31)
[2021-11-04] MEDS: BUDESONIDE/FORMETEROL FUMARATE 160/4.5 mcg INHALER IH SCH (09:20)
[2021-11-04 09:42] LABS: CREATININE 0.7 mg/dl (0.55-1.3); MAGNESIUM 1.7 mg/dL (1.8-2.4)
[2021-11-04] MEDS: cloNIDine HCL 0.1 MG TABLET PO SCH (09:49)
[2021-11-04] MEDS: FOLIC ACID 1 MG TABLET (FP) PO SCH (09:49)
[2021-11-04] MEDS: PANTOPRAZOLE SODIUM 40 MG VIAL IVPUSH SCH (09:49)
[2021-11-04] MEDS: THIAMINE HCL 100 MG TABLET (FP) PO SCH (09:50)
[2021-11-04] MEDS: MULTIVITAMINS (DAILY MVI) TABLET (FP) PO SCH (09:50)
[2021-11-04 09:53] LABS: HEMATOCRIT 32.1 % (32.4-45.2); HEMOGLOBIN 10.9 GM/dL (10.7-15.3); MCH 32.4 pg (25.7-33.7); MCHC 33.9 g/dl (32.0-36.0); MEAN CELL VOLUME 95.6 fl (80-96); MEAN PLT VOLUME 8.1 fl (7.5-11.1); PLATELET COUNT 232 10^3/uL (134-434); RBC 3.36 M/mm3 (3.60-5.2); RDW 15.2 % (11.6-15.6); WHITE BLOOD COUNT 4.2 K/mm3 (4.0-10.0)
[2021-11-04 09:55] LABS: PHOSPHOROUS 1.1 mg/dl (2.5-4.9)
[2021-11-04] MEDS ORDERED: amLODIPine BESYLATE 5 MG TABLET (FP) PO SCH (10:00)
[2021-11-04] MEDS: D5-NS + 20 MEQ KCL - 20 MEQ/1,000 ML INFUS.BAG IV SCH (10:45)
[2021-11-04 11:39] LABS: ANISOCYTOSIS 0; HELMET CELLS 0; HOWELL-JOLLY BODIES 0; MACROCYTOSIS 0; OVALOCYTE 0; PLATELET ESTIMATE NORMAL; ROULEAU 0; SICKELED CELLS 0; TARGET CELLS 0; TEAR DROP CELLS 0; TOXIC GRANULATION 0
[2021-11-04 11:43] VITALS: BP 120/86; PULSE 96
[2021-11-04] MEDS ORDERED: HEPARIN NA (PORCINE) 5,000 UNITS/ML 1ML VIAL SQ SCH (14:00)
[2021-11-05] MEDS ORDERED: LORazepam 1 MG TABLET PO SCH (05:00)
[2021-11-06] MEDS ORDERED: LORazepam 0.5 MG TABLET PO PRN
[2021-11-06] MEDS ORDERED: LORazepam 0.5 MG TABLET PO SCH (05:00)
[2021-11-07] MEDS ORDERED: LORazepam 0.5 MG TABLET PO ONE (05:00)
== END 2021-11-04 11:50 | disposition left against medical advice (07) | DRG 894 ==
LOC: FER 12:39 → FM/S 18:28 → UNDOADMIN 11-04 06:35 → FM/S 11-04 06:35
PROVIDERS: ADMIT Internal Medicine; ATTEND Internal Medicine
DX: F10.230 Alcohol dependence with withdrawal, uncomplicated (principal); E87.2 Acidosis; E83.42 Hypomagnesemia; E83.39 Other disorders of phosphorus metabolism; E83.51 Hypocalcemia; K21.9 Gastro-esophageal reflux disease without esophagitis; F32.A Depression, unspecified; M79.7 Fibromyalgia; J45.909 Unspecified asthma, uncomplicated; I10 Essential (primary) hypertension; Z53.29 Procedure and treatment not carried out because of patient's decision for other reasons
CPT/HCPCS: 36415; 80048; 80053; 82803; 83605; 83690; 83735; 84100; 85025; 93005; 99285-25; C9803; J0735; Q0162; U0003; U0005

== ENCOUNTER 2021-12-22 15:30 | Emergency (ER) | payer BC ==
[2021-12-22 15:55] VITALS: BP 111/89; PULSE 87; TEMP 98.5; BMI 22.7
[2021-12-22] MEDS ORDERED: METOCLOPRAMIDE HCL INJECTION 10 MG/2 ML VIAL IVPUSH ONE (15:57)
[2021-12-22] MEDS ORDERED: SODIUM CHLORIDE 1,000 ML IV ONE (15:57)
[2021-12-22] MEDS ORDERED: FAMOTIDINE 20 MG/50 ML IVPB 20 MG in PREMIX 50 IVPB ONE (15:57)
[2021-12-22] MEDS ORDERED: METOCLOPRAMIDE HCL INJECTION 10 MG/2 ML VIAL ONE (16:39)
[2021-12-22 16:52] LABS: ALBUMIN 3.7 g/dl (3.4-5.0); BILIRUBIN,TOTAL 0.4 mg/dl (0.2-1); CALCIUM 8.6 mg/dl (8.5-10); CREATININE 0.8 mg/dl (0.55-1.3); TOT PROT 7.5 g/dl (6.4-8.2)
[2021-12-22 18:22] LABS: BASO % 0.5 % (0-2.0); EOS % 0.7 % (0-4.5); HEMATOCRIT 36.4 % (32.4-45.2); HEMOGLOBIN 12.3 GM/dL (10.7-15.3); LYMPH % 24.1 % (8-40); MCH 32.8 pg (25.7-33.7); MCHC 33.7 g/dl (32.0-36.0); MEAN CELL VOLUME 97.2 fl (80-96); MEAN PLT VOLUME 8.4 fl (7.5-11.1); MONO % 8.4 % (3.8-10.2); NEUT % 66.3 % (42.8-82.8); PLATELET COUNT 294 10^3/uL (134-434); RBC 3.75 M/mm3 (3.60-5.2); RDW 15.9 % (11.6-15.6); WHITE BLOOD COUNT 5.4 K/mm3 (4.0-10.0)
== END 2021-12-22 18:37 | disposition home or self-care (01) ==
LOC: FER 15:30
PROC: 3E033GC Introduction of Other Therapeutic Substance into Peripheral Vein, Percutaneous Approach (ICD-10-PCS; principal; 2021-12-22)
PROC: 3E033GC Introduction of Other Therapeutic Substance into Peripheral Vein, Percutaneous Approach (ICD-10-PCS; 2021-12-22)
PROC: 3E0337Z Introduction of Electrolytic and Water Balance Substance into Peripheral Vein, Percutaneous Approach (ICD-10-PCS; 2021-12-22)
DX: R11.2 Nausea with vomiting, unspecified (principal)
CPT/HCPCS: 36415; 80053; 85025; 99284-25

== ENCOUNTER 2022-01-14 19:54 | Emergency (ER) | payer BC ==
[2022-01-14 20:03] VITALS: BP 151/85; PULSE 111; TEMP 99; BMI 22.1
[2022-01-14] MEDS ORDERED: SODIUM CHLORIDE 1,000 ML IV ONE (20:18)
[2022-01-14] MEDS ORDERED: methylPREDNISolone NA SUCC 125 MG/2 ML VIAL IVPB ONE (20:19)
[2022-01-14] MEDS ORDERED: methylPREDNISolone NA SUCC 125 MG/2 ML VIAL ONE (20:21)
[2022-01-14] MEDS ORDERED: ALBUTEROL SO4 2.5/IPRATROPIUM 0.5 INH SOL 3 ML VIAL.NEB. NEB ONE (20:21)
[2022-01-14] MEDS: ALBUTEROL SO4 2.5/IPRATROPIUM 0.5 INH SOL 3 ML VIAL.NEB. NEB SCH ×3 (20:37→21:20)
[2022-01-14 21:18] LABS: RBC 3.93 10^6/uL (3.60-5.2); WHITE BLOOD COUNT 4.7 10^3/uL (4.0-10.8)
[2022-01-14 21:19] LABS: HEMOGLOBIN 12.6 G/dL (10.7-15.3); MCH 32.1 pg (25.7-33.7); MCHC 33.2 g/dl (32.0-36.0); MEAN CELL VOLUME 96.7 fl (80-96); MEAN PLT VOLUME 8.9 fl (7.5-11.1); PLATELET COUNT 375 10^3/uL (134-434); RDW 15.5 % (11.6-15.6)
[2022-01-14 21:30] LABS: CREATININE 0.6 mg/dl (0.55-1.3)
[2022-01-14 21:31] LABS: ALBUMIN 3.5 g/dl (3.4-5.0); CALCIUM 8.8 mg/dl (8.5-10); MAGNESIUM 1.5 mg/dL (1.8-2.4)
[2022-01-14 21:32] LABS: BILIRUBIN,TOTAL 1.5 mg/dl (0.2-1)
[2022-01-14 21:34] LABS: TOT PROT 7.4 g/dl (6.4-8.2)
[2022-01-14 21:37] LABS: ANISOCYTOSIS 1+
[2022-01-14 21:38] LABS: TARGET CELLS 1+; TEAR DROP CELLS 1+
[2022-01-14 21:42] LABS: PLATELET ESTIMATE ADEQUATE
[2022-01-14] MEDS ORDERED: MAGNESIUM CL 64 MG TABLET.SA PO STA (21:46)
== END 2022-01-14 22:23 | disposition home or self-care (01) ==
LOC: FER 19:54
PROC: 3E033GC Introduction of Other Therapeutic Substance into Peripheral Vein, Percutaneous Approach (ICD-10-PCS; principal; 2022-01-14)
PROC: 3E0F7GC Introduction of Other Therapeutic Substance into Respiratory Tract, Via Natural or Artificial Opening (ICD-10-PCS; 2022-01-14)
DX: J45.901 Unspecified asthma with (acute) exacerbation (principal); E83.42 Hypomagnesemia
CPT/HCPCS: 36415; 80053; 83735; 85025; 99285-25

== ENCOUNTER 2022-02-17 22:29 | Emergency (ER) | payer BC ==
[2022-02-17 22:42] VITALS: BP 158/97; PULSE 84; TEMP 97.8; BMI 22.4
[2022-02-17] MEDS ORDERED: ONDANSETRON 4 MG/2 ML VIAL IVPUSH ONE (22:44)
[2022-02-17] MEDS ORDERED: ACETAMINOPHEN 1000 MG/100 ML BAG IVPB ONE (22:44)
[2022-02-17 23:03] LABS: HEMATOCRIT 37.1 % (32.4-45.2); HEMOGLOBIN 12.7 G/dL (10.7-15.3); MCH 32.9 pg (25.7-33.7); MCHC 34.1 g/dl (32.0-36.0); MEAN CELL VOLUME 96.7 fl (80-96); MEAN PLT VOLUME 8.4 fl (7.5-11.1); PLATELET COUNT 302.7 10^3/uL (134-434); RBC 3.84 10^6/uL (3.60-5.2); RDW 16.1 % (11.6-15.6); WHITE BLOOD COUNT 5.6 10^3/uL (4.0-10.8)
[2022-02-17 23:13] LABS: PLATELET ESTIMATE ADEQUATE
[2022-02-17 23:19] LABS: ALBUMIN 3.3 g/dl (3.4-5.0); BILIRUBIN,TOTAL 0.7 mg/dl (0.2-1); CALCIUM 9.1 mg/dl (8.5-10); CREATININE 0.7 mg/dl (0.55-1.3); TOT PROT 7.1 g/dl (6.4-8.2)
[2022-02-18] MEDS ORDERED: KETOROLAC TROMETHAMINE 30 MG/1 ML VIAL IVPUSH ONE
[2022-02-18] MEDS ORDERED: KETOROLAC TROMETHAMINE 30 MG/1 ML VIAL ONE (00:01)
== END 2022-02-18 00:39 | disposition home or self-care (01) ==
LOC: FER 22:29
PROC: 3E0333Z Introduction of Anti-inflammatory into Peripheral Vein, Percutaneous Approach (ICD-10-PCS; principal; 2022-02-17)
PROC: 3E0333Z Introduction of Anti-inflammatory into Peripheral Vein, Percutaneous Approach (ICD-10-PCS; 2022-02-17)
DX: R11.10 Vomiting, unspecified (principal); R10.9 Unspecified abdominal pain
CPT/HCPCS: 36415; 74176-TC; 80053; 83690; 85027; 99284-25

== ENCOUNTER 2022-04-11 17:43 | Emergency (ER) | payer BC ==
[2022-04-11 18:03] VITALS: BP 120/70; PULSE 92; TEMP 99.1; BMI 21.9
== END 2022-04-11 20:57 | disposition home or self-care (01) ==
LOC: JER 17:43
DX: F10.10 Alcohol abuse, uncomplicated (principal)
CPT/HCPCS: 99281-25

== ENCOUNTER 2022-04-11 21:05 | Inpatient (IN) | payer BC, OTHER ==
[2022-04-11 22:20] VITALS: BMI 21.7
[2022-04-12] MEDS ORDERED: DICYCLOMINE HCL 10 MG CAPSULE PO PRN (00:28)
[2022-04-12] MEDS ORDERED: BISMUTH SUBSALICYLATE 524 MG/30 ML PO PRN (00:28)
[2022-04-12] MEDS ORDERED: ONDANSETRON *ODT* 4 MG TABLET SL PRN (00:28)
[2022-04-12] MEDS ORDERED: BENZOCAINE/MENTHOL (CHLORASEPTIC ) LOZENGE MM PRN (00:28)
[2022-04-12] MEDS ORDERED: MAG HYDROX/AL HYDROX/SIMETH 30 ML UNIT-DOSE CUP PO PRN (00:28)
[2022-04-12] MEDS ORDERED: chlordiazePOXIDE HCL 25 MG CAPSULE PO PRN (00:28)
[2022-04-12] MEDS ORDERED: MAGNESIUM CITRATE 300 ML BOTTLE PO PRN (00:28)
[2022-04-12] MEDS ORDERED: LOPERAMIDE HCL 2 MG CAPSULE PO PRN (00:28)
[2022-04-12] MEDS ORDERED: MAGNESIUM HYDROX 2400MG/30ML ORAL SUSPENSION 30 ML CUP PO PRN (00:28)
[2022-04-12] MEDS ORDERED: ACETAMINOPHEN 325 MG TABLET (FP) PO PRN ×2 (00:28)
[2022-04-12] MEDS ORDERED: IBUPROFEN 600 MG TABLET (FP) PO PRN (00:28)
[2022-04-12] MEDS ORDERED: IBUPROFEN 400 MG TABLET (FP) PO PRN (00:28)
[2022-04-12] MEDS ORDERED: chlordiazePOXIDE HCL 25 MG CAPSULE PO SCH (05:00)
[2022-04-12] MEDS ORDERED: LORazepam 1 MG TABLET PO PRN (10:35)
[2022-04-12] MEDS ORDERED: diphenhydrAMINE HCL 25 MG CAPSULE (FP) PO ONE (10:36)
[2022-04-12] MEDS: PRENATAL VITAMINS W/ FOLIC ACID TABLET (FP) PO SCH (11:28)
[2022-04-12] MEDS: NICOTINE 21 MG/24 HOURS TOPICAL PATCH TD SCH (11:28)
[2022-04-12] MEDS: LORazepam 2 MG TABLET PO SCH ×3 (11:48→22:06)
[2022-04-12] MEDS: amLODIPine BESYLATE 5 MG TABLET (FP) PO SCH (11:48)
[2022-04-12] MEDS: METHOCARBAMOL 500 MG TABLET PO PRN ×2 (11:49→22:09)
[2022-04-12] MEDS: NICOTINE 10 MG CARTRIDGE (INHALER) IH PRN (18:45)
[2022-04-12] MEDS ORDERED: COLLOIDAL OATMEAL 1 BAR EACH TP PRN (19:03)
[2022-04-12] MEDS ORDERED: MELATONIN 5 MG TABLETS PO SCH (22:00)
[2022-04-12] MEDS ORDERED: THIAMINE HCL 100 MG TABLET (FP) PO SCH (22:00)
[2022-04-12] MEDS ORDERED: QUEtiapine FUMARATE 100 MG TABLET (FP) PO SCH (22:00)
[2022-04-13] MEDS ORDERED: chlordiazePOXIDE HCL 25 MG CAPSULE PO SCH (05:00)
[2022-04-13] MEDS: LORazepam 2 MG TABLET PO SCH ×2 (06:15→10:27)
[2022-04-13 09:13] VITALS: BP 140/96; PULSE 94; TEMP 96.7
[2022-04-13] MEDS ORDERED: SERTRALINE HCL 50 MG TABLET (FP) PO SCH (10:00)
[2022-04-13] MEDS: NICOTINE 21 MG/24 HOURS TOPICAL PATCH TD SCH (10:26)
[2022-04-13] MEDS: PRENATAL VITAMINS W/ FOLIC ACID TABLET (FP) PO SCH (10:27)
[2022-04-13] MEDS: amLODIPine BESYLATE 5 MG TABLET (FP) PO SCH (10:27)
[2022-04-13] MEDS: METHOCARBAMOL 500 MG TABLET PO PRN (10:30)
[2022-04-13] MEDS: NICOTINE 10 MG CARTRIDGE (INHALER) IH PRN (11:51)
[2022-04-14] MEDS ORDERED: chlordiazePOXIDE HCL 10 MG CAPSULE PO PRN
[2022-04-14] MEDS ORDERED: chlordiazePOXIDE HCL 10 MG CAPSULE PO SCH (05:00)
[2022-04-14] MEDS ORDERED: LORazepam 1 MG TABLET PO SCH (05:00)
[2022-04-15] MEDS ORDERED: LORazepam 0.5 MG TABLET PO PRN
[2022-04-15] MEDS ORDERED: LORazepam 0.5 MG TABLET PO SCH (05:00)
[2022-04-15] MEDS ORDERED: chlordiazePOXIDE HCL 10 MG CAPSULE PO SCH (05:00)
[2022-04-16] MEDS ORDERED: LORazepam 0.5 MG TABLET PO ONE (05:00)
[2022-04-16] MEDS ORDERED: chlordiazePOXIDE HCL 10 MG CAPSULE PO ONE (05:00)
== END 2022-04-13 13:01 | disposition left against medical advice (07) | DRG 894 ==
LOC: YASAS 21:05 → Y3N 04-12 02:40
PROVIDERS: ADMIT Allergy & Immunology; ATTEND Allergy & Immunology
PROC: HZ2ZZZZ Detoxification Services for Substance Abuse Treatment (ICD-10-PCS; principal; 2022-04-12)
DX: F10.230 Alcohol dependence with withdrawal, uncomplicated (principal); F17.210 Nicotine dependence, cigarettes, uncomplicated; F10.24 Alcohol dependence with alcohol-induced mood disorder; F41.9 Anxiety disorder, unspecified; F41.0 Panic disorder [episodic paroxysmal anxiety]; F32.A Depression, unspecified; I10 Essential (primary) hypertension; J45.20 Mild intermittent asthma, uncomplicated; K21.9 Gastro-esophageal reflux disease without esophagitis; G47.30 Sleep apnea, unspecified; M79.7 Fibromyalgia; M06.9 Rheumatoid arthritis, unspecified; Z88.6 Allergy status to analgesic agent; Z91.013 Allergy to seafood
CPT/HCPCS: 36415; 86780; 93005; 93010; C9803-CS; U0003; U0005

== ENCOUNTER 2022-04-20 11:34 | Emergency (ER) | payer BC, OTHER ==
[2022-04-20 11:48] VITALS: BP 130/83; PULSE 72; RESP 18; TEMP 98.2; BMI 23.1
[2022-04-20] MEDS ORDERED: ONDANSETRON *ODT* 4 MG TABLET SL ONE (12:06)
[2022-04-20] MEDS ORDERED: ONDANSETRON *ODT* 4 MG TABLET ONE (12:11)
== END 2022-04-20 14:05 | disposition home or self-care (01) ==
LOC: FER 11:34
DX: R11.0 Nausea (principal)
CPT/HCPCS: 74019-TC-FY; 81025; 99284-25; Q0162

== ENCOUNTER 2022-04-24 14:55 | Emergency (ER) | payer BC ==
[2022-04-24 15:13] VITALS: BP 113/89; PULSE 77; RESP 18; TEMP 99.3; BMI 22.8
== END 2022-04-24 16:20 | disposition home or self-care (01) ==
LOC: FER 14:55
PROC: 2W3DX1Z Immobilization of Left Lower Arm using Splint (ICD-10-PCS; principal; 2022-04-24)
DX: S60.922A Unspecified superficial injury of left hand, initial encounter (principal); Y04.0XXA Assault by unarmed brawl or fight, initial encounter
CPT/HCPCS: 73130-TC-LT-FY; 99283-25

== ENCOUNTER 2022-04-26 08:42 | Emergency (ER) | payer BC ==
[2022-04-26] MEDS ORDERED: ACETAMINOPHEN 1000 MG/100 ML BAG IVPB ONE ×2 (09:14→14:06)
[2022-04-26] MEDS ORDERED: ONDANSETRON 4 MG/2 ML VIAL IVPUSH ONE (09:14)
[2022-04-26 09:21] VITALS: TEMP 98.1; BMI 22.8
[2022-04-26] MEDS ORDERED: SODIUM CHLORIDE 0.9% 500 ML INFUS.BAG IV ONE (09:38)
[2022-04-26] MEDS ORDERED: PANTOPRAZOLE SODIUM 40 MG VIAL IVPUSH ONE (09:38)
[2022-04-26] MEDS ORDERED: CEFTRIAXONE 1,000 MG in DEXTROSE 5%-WATER - 50 ML IVPB ONE (10:01)
[2022-04-26] MEDS ORDERED: ONDANSETRON 4 MG/2 ML VIAL ONE (10:03)
[2022-04-26] MEDS ORDERED: ACETAMINOPHEN INJECTION 100 ML IVPB ONE ×2 (10:03→14:17)
[2022-04-26] MEDS ORDERED: PANTOPRAZOLE SODIUM 40 MG VIAL ONE (10:03)
[2022-04-26 10:14] LABS: BASO % 0.8 % (0-2.0); EOS % 0.1 % (0-4.5); HEMATOCRIT 37.2 % (32.4-45.2); HEMOGLOBIN 12.6 GM/dL (10.7-15.3); LYMPH % 11.8 % (8-40); MCH 32.2 pg (25.7-33.7); MCHC 33.8 g/dl (32.0-36.0); MEAN CELL VOLUME 95.4 fl (80-96); MEAN PLT VOLUME 8.1 fl (7.5-11.1); MONO % 8.9 % (3.8-10.2); NEUT % 78.4 % (42.8-82.8); PLATELET COUNT 315 10^3/uL (134-434); RDW 16.3 % (11.6-15.6); WHITE BLOOD COUNT 5.2 K/mm3 (4.0-10.0)
[2022-04-26 10:24] LABS: INR 0.94 (0.83-1.09); PROTHROMBIN TIME (PATIENT) 10.8 SEC (9.7-13.0)
[2022-04-26 10:27] LABS: ACTIVATED PTT 29.5 SECONDS (25.2-36.5)
[2022-04-26 10:39] LABS: ALBUMIN 3.2 g/dl (3.4-5.0); BLOOD UREA NITROGEN 10.1 mg/dL (7-18); CALCIUM 8.2 mg/dL (8.5-10.1)
[2022-04-26 10:42] LABS: CREATININE 0.7 mg/dL (0.55-1.3)
[2022-04-26 10:44] LABS: BILIRUBIN,TOTAL 0.5 mg/dL (0.2-1); TOT PROT 7.2 g/dl (6.4-8.2)
[2022-04-26] MEDS ORDERED: CEFTRIAXONE 1 GM/50 ML BAG ONE (10:46)
[2022-04-26] MEDS ORDERED: OCTREOTIDE ACETATE 200 MCG, OCTREOTIDE ACETATE 1,000 MCG in DEXTROSE 5%-WATER - 496 ML IVPB SCH (11:00)
[2022-04-26 12:02] LABS: URINE APPEARANCE CLEAR; URINE BILIRUBIN NEGATIVE (NEGATIVE); URINE COLOR YELLOW; URINE GLUCOSE (UA) NEGATIVE (NEGATIVE); URINE KETONE TRACE (NEGATIVE); URINE LEUK ESTERASE NEGATIVE (NEGATIVE); URINE NITRITE NEGATIVE (NEGATIVE); URINE PROTEIN NEGATIVE (NEGATIVE); URINE UROBILINOGEN 0.2 mg/dL (0.2-1.0)
[2022-04-26 13:23] LABS: BASO % 1.1 % (0-2.0); EOS % 0.5 % (0-4.5); HEMATOCRIT 35.6 % (32.4-45.2); HEMOGLOBIN 11.9 GM/dL (10.7-15.3); LYMPH % 20.2 % (8-40); MCH 31.9 pg (25.7-33.7); MCHC 33.4 g/dl (32.0-36.0); MEAN CELL VOLUME 95.4 fl (80-96); MEAN PLT VOLUME 8.1 fl (7.5-11.1); MONO % 10.9 % (3.8-10.2); NEUT % 67.3 % (42.8-82.8); PLATELET COUNT 306 10^3/uL (134-434); RBC 3.73 M/mm3 (3.60-5.2); RDW 16.3 % (11.6-15.6)
[2022-04-26 13:31] VITALS: RESP 18
[2022-04-26 14:06] LABS: OPIATES, URI NEGATIVE (NEGATIVE); URINE BARBITURATES NEGATIVE (NEGATIVE)
[2022-04-26] MEDS ORDERED: FAMOTIDINE 20 MG/50 ML IVPB 20 MG/50 ML MG IVPB ONE ×2 (14:06→14:17)
[2022-04-26 14:07] LABS: COCAINE, UR NEGATIVE (NEGATIVE); METHADONE, UR NEGATIVE (NEGATIVE); PHENCYCLIDINE,URINE NEGATIVE (NEGATIVE); URINE AMPHETAMINES NEGATIVE (NEGATIVE); URINE BENZODIAZEPINES NEGATIVE (NEGATIVE)
[2022-04-26 15:35] VITALS: BP 120/60; PULSE 62
== END 2022-04-26 16:02 | disposition home or self-care (01) ==
LOC: JER 08:42
PROC: 3E0333Z Introduction of Anti-inflammatory into Peripheral Vein, Percutaneous Approach (ICD-10-PCS; principal; 2022-04-26)
PROC: 3E0333Z Introduction of Anti-inflammatory into Peripheral Vein, Percutaneous Approach (ICD-10-PCS; 2022-04-26)
PROC: 3E03329 Introduction of Other Anti-infective into Peripheral Vein, Percutaneous Approach (ICD-10-PCS; 2022-04-26)
PROC: 3E033GC Introduction of Other Therapeutic Substance into Peripheral Vein, Percutaneous Approach (ICD-10-PCS; 2022-04-26)
PROC: 3E033GC Introduction of Other Therapeutic Substance into Peripheral Vein, Percutaneous Approach (ICD-10-PCS; 2022-04-26)
PROC: 3E033GC Introduction of Other Therapeutic Substance into Peripheral Vein, Percutaneous Approach (ICD-10-PCS; 2022-04-26)
DX: R11.10 Vomiting, unspecified (principal); R10.9 Unspecified abdominal pain; K63.89 Other specified diseases of intestine
CPT/HCPCS: 0241U-QW; 36415; 71045-TC-FY; 74177-TC; 80053; 80307; 81003; 82272; 83605; 83690; 84484; 84703; 85025; 85610; 85730; 86850; 86900; 86901; 87086; 93005; 93010; 99285-25; Q9967

== ENCOUNTER 2022-06-28 12:28 | Emergency (ER) | payer BC, OTHER ==
[2022-06-28] MEDS ORDERED: SODIUM CHLORIDE 1,000 ML IV ONE (12:44)
[2022-06-28] MEDS ORDERED: ONDANSETRON 4 MG/2 ML VIAL IVPB ONE (12:44)
[2022-06-28] MEDS ORDERED: FAMOTIDINE 20 MG/50 ML IVPB 20 MG in PREMIX 50 IVPB ONE (12:44)
[2022-06-28 13:13] VITALS: BP 151/97; PULSE 80; RESP 20; TEMP 98.9; BMI 23.8
[2022-06-28] MEDS ORDERED: FAMOTIDINE 20 MG/50 ML IVPB 20 MG/50 ML MG IVPB ONE (13:29)
[2022-06-28] MEDS ORDERED: ONDANSETRON 4 MG/2 ML VIAL ONE (13:30)
[2022-06-28 13:58] LABS: VENOUS BASE EXCESS 4.3 mmol/L (-2-2); VENOUS O2 SATURATION 56.1 % (70-80); VENOUS PCO2 44.3 mmHg (38-52); VENOUS PH 7.437 (7.310-7.410)
[2022-06-28 13:59] LABS: BASO % 0.8 % (0-2.0); HEMATOCRIT 44.7 % (32.4-45.2); HEMOGLOBIN 15.2 GM/dL (10.7-15.3); LYMPH % 12.5 % (8-40); MCH 32.5 pg (25.7-33.7); MEAN CELL VOLUME 95.6 fl (80-96); MEAN PLT VOLUME 9.4 fl (7.5-11.1); MONO % 3.6 % (3.8-10.2); NEUT % 83.1 % (42.8-82.8); PLATELET COUNT 281 10^3/uL (134-434); RBC 4.68 M/mm3 (3.60-5.2); RDW 14.5 % (11.6-15.6)
[2022-06-28 14:06] LABS: INR 0.89 (0.83-1.09); PROTHROMBIN TIME (PATIENT) 10.2 SEC (9.7-13.0)
[2022-06-28 14:26] LABS: ALBUMIN 4.2 g/dl (3.4-5.0); BLOOD UREA NITROGEN 12.2 mg/dL (7-18); CALCIUM 9.3 mg/dL (8.5-10.1)
[2022-06-28 14:29] LABS: CREATININE 0.9 mg/dL (0.55-1.3)
[2022-06-28 14:31] LABS: BILIRUBIN,TOTAL 0.7 mg/dL (0.2-1); TOT PROT 9.7 g/dl (6.4-8.2)
== END 2022-06-28 18:05 | disposition home or self-care (01) ==
LOC: JER 12:28
PROC: 3E033GC Introduction of Other Therapeutic Substance into Peripheral Vein, Percutaneous Approach (ICD-10-PCS; principal; 2022-06-28)
PROC: 3E033GC Introduction of Other Therapeutic Substance into Peripheral Vein, Percutaneous Approach (ICD-10-PCS; 2022-06-28)
PROC: 3E0337Z Introduction of Electrolytic and Water Balance Substance into Peripheral Vein, Percutaneous Approach (ICD-10-PCS; 2022-06-28)
DX: K92.0 Hematemesis (principal); K62.5 Hemorrhage of anus and rectum
CPT/HCPCS: 36415; 80053; 82272; 82803; 83690; 84484; 85025; 85610; 86850; 86900; 86901; 93005; 93010; 99284-25

== ENCOUNTER 2022-08-09 13:12 | Emergency (ER) | payer BC, OTHER ==
[2022-08-09 13:23] VITALS: BP 150/100; PULSE 76; RESP 20; TEMP 98.6; BMI 23.8
[2022-08-09] MEDS ORDERED: ACETAMINOPHEN 1000 MG/100 ML BAG IVPB ONE (13:47)
[2022-08-09] MEDS ORDERED: SODIUM CHLORIDE 0.9% 500 ML INFUS.BAG IV ONE (13:47)
[2022-08-09] MEDS ORDERED: FAMOTIDINE 20 MG/50 ML IVPB 20 MG/50 ML MG IVPB ONE ×2 (13:48→14:16)
[2022-08-09] MEDS ORDERED: chlordiazePOXIDE HCL 25 MG CAPSULE PO ONE (13:55)
[2022-08-09] MEDS ORDERED: chlordiazePOXIDE HCL 25 MG CAPSULE ONE (14:15)
[2022-08-09] MEDS ORDERED: ACETAMINOPHEN INJECTION 100 ML IVPB ONE (14:16)
[2022-08-09] MEDS ORDERED: ONDANSETRON 4 MG/2 ML VIAL ONE (14:36)
[2022-08-09 14:47] LABS: HEMATOCRIT 34.9 % (32.4-45.2); HEMOGLOBIN 11.8 G/dL (10.7-15.3); MCH 33.5 pg (25.7-33.7); MCHC 33.8 g/dl (32.0-36.0); MEAN CELL VOLUME 99.2 fl (80-96); MEAN PLT VOLUME 8.1 fl (7.5-11.1); PLATELET COUNT 310.7 10^3/uL (134-434); RBC 3.52 10^6/uL (3.60-5.2); RDW 15.5 % (11.6-15.6); WHITE BLOOD COUNT 3.7 10^3/uL (4.0-10.8)
[2022-08-09 16:08] LABS: CHLORIDE 102 mmol/L (98-107); SODIUM 137 mmol/L (136-145)
[2022-08-09 16:10] LABS: ALBUMIN 2.9 g/dl (3.4-5.0); CALCIUM 8.3 mg/dL (8.5-10.1); LIPASE 118 U/L (73-393)
[2022-08-09 16:11] LABS: ANION GAP 10 MMOL/L (8-16); BLOOD UREA NITROGEN 8.1 mg/dL (7-18); CO2 25 mmol/L (21-32); GLUCOSE,RANDOM 80 mg/dL (74-106)
[2022-08-09 16:13] LABS: CREATININE 0.7 mg/dL (0.55-1.3); SGOT/AST 22 U/L (15-37)
[2022-08-09 16:15] LABS: BILIRUBIN,TOTAL 0.3 mg/dL (0.2-1); TOT PROT 6.8 g/dl (6.4-8.2)
[2022-08-09 16:16] LABS: ALK PHOS 87 U/L (45-117)
[2022-08-09 16:29] LABS: SGPT/ALT 19 U/L (13-61)
[2022-08-09 18:16] LABS: URINE COLOR YELLOW
[2022-08-09 18:17] LABS: URINE APPEARANCE CLEAR; URINE BILIRUBIN NEGATIVE (NEGATIVE); URINE GLUCOSE (UA) NEGATIVE (NEGATIVE); URINE KETONE NEGATIVE (NEGATIVE); URINE LEUK ESTERASE NEGATIVE (NEGATIVE); URINE NITRITE NEGATIVE (NEGATIVE); URINE PROTEIN NEGATIVE (NEGATIVE); URINE UROBILINOGEN 0.2 (0.2-1.0)
== END 2022-08-09 16:55 | disposition home or self-care (01) ==
LOC: FER 13:12
PROC: 3E033NZ Introduction of Analgesics, Hypnotics, Sedatives into Peripheral Vein, Percutaneous Approach (ICD-10-PCS; principal; 2022-08-09)
PROC: 3E033GC Introduction of Other Therapeutic Substance into Peripheral Vein, Percutaneous Approach (ICD-10-PCS; 2022-08-09)
DX: R10.84 Generalized abdominal pain (principal)
CPT/HCPCS: 36415; 80053; 81003; 83605; 83690; 84484; 85025; 87086; 93005; 99285-25

== ENCOUNTER 2022-08-15 08:15 | Emergency (ER) | payer BC ==
[2022-08-15] MEDS ORDERED: FAMOTIDINE 20 MG/50 ML IVPB 20 MG/50 ML MG IVPB ONE ×2 (08:27→08:36)
[2022-08-15] MEDS ORDERED: SODIUM CHLORIDE 1,000 ML IV STA (08:27)
[2022-08-15] MEDS ORDERED: MAG HYDROX/AL HYDROX/SIMETH -MYLANTA- ORAL SUSPENSION PO ONE (08:27)
[2022-08-15] MEDS ORDERED: ONDANSETRON 4 MG/2 ML VIAL IVPUSH ONE (08:27)
[2022-08-15] MEDS ORDERED: ONDANSETRON 4 MG/2 ML VIAL ONE (08:35)
[2022-08-15 08:36] VITALS: RESP 20; BMI 22.8
[2022-08-15] MEDS ORDERED: MAG HYDROX/AL HYDROX/SIMETH 30 ML UNIT-DOSE CUP ONE (08:36)
[2022-08-15] MEDS ORDERED: ACETAMINOPHEN 1000 MG/100 ML BAG IVPB ONE ×2 (08:39→16:23)
[2022-08-15] MEDS ORDERED: ACETAMINOPHEN INJECTION 100 ML IVPB ONE ×2 (08:58→16:26)
[2022-08-15 09:10] LABS: HEMATOCRIT 36.4 % (32.4-45.2); MCH 32.7 pg (25.7-33.7); MCHC 32.8 g/dl (32.0-36.0); MEAN CELL VOLUME 99.6 fl (80-96); MEAN PLT VOLUME 7.8 fl (7.5-11.1); PLATELET COUNT 306.1 10^3/uL (134-434); RBC 3.65 10^6/uL (3.60-5.2); RDW 15.7 % (11.6-15.6); WHITE BLOOD COUNT 4.8 10^3/uL (4.0-10.8)
[2022-08-15 09:41] LABS: ALBUMIN 3.6 g/dl (3.4-5.0); BILIRUBIN,TOTAL 1.2 mg/dl (0.2-1); CALCIUM 8.4 mg/dl (8.5-10); CREATININE 0.7 mg/dl (0.55-1.3); TOT PROT 7.6 g/dl (6.4-8.2)
[2022-08-15 09:46] LABS: PLATELET ESTIMATE ADEQUATE
[2022-08-15] MEDS ORDERED: ACETAMINOPHEN 325 MG TABLET (FP) PO ONE (15:02)
[2022-08-15] MEDS ORDERED: ACETAMINOPHEN 325 MG TABLET (FP) ONE (15:05)
[2022-08-15 16:50] VITALS: BP 145/104; PULSE 70; TEMP 98.9
== END 2022-08-15 16:53 | disposition home or self-care (01) ==
LOC: FER 08:15
PROC: 3E0333Z Introduction of Anti-inflammatory into Peripheral Vein, Percutaneous Approach (ICD-10-PCS; principal; 2022-08-15)
PROC: 3E0333Z Introduction of Anti-inflammatory into Peripheral Vein, Percutaneous Approach (ICD-10-PCS; 2022-08-15)
PROC: 3E033GC Introduction of Other Therapeutic Substance into Peripheral Vein, Percutaneous Approach (ICD-10-PCS; 2022-08-15)
PROC: 3E0337Z Introduction of Electrolytic and Water Balance Substance into Peripheral Vein, Percutaneous Approach (ICD-10-PCS; 2022-08-15)
DX: R10.33 Periumbilical pain (principal)
CPT/HCPCS: 36415; 74176-TC; 80053; 81003; 83690; 84703; 85025; 87086; 99284-25

== ENCOUNTER 2022-09-11 01:48 | Emergency (ER) | payer BC ==
[2022-09-11 02:00] VITALS: BP 132/88; PULSE 89; RESP 16; TEMP 98.1; BMI 22.6
[2022-09-11] MEDS ORDERED: ONDANSETRON 4 MG/2 ML VIAL IVPUSH ONE (02:51)
[2022-09-11] MEDS ORDERED: ACETAMINOPHEN 1000 MG/100 ML BAG IVPB ONE (02:51)
[2022-09-11] MEDS ORDERED: FAMOTIDINE 20 MG/50 ML IVPB 20 MG/50 ML MG IVPB ONE ×2 (02:51→02:57)
[2022-09-11] MEDS ORDERED: SODIUM CHLORIDE 1,000 ML IV STA (02:51)
[2022-09-11] MEDS ORDERED: ACETAMINOPHEN INJECTION 100 ML IVPB ONE (02:57)
[2022-09-11] MEDS ORDERED: ONDANSETRON 4 MG/2 ML VIAL ONE (02:57)
[2022-09-11 04:53] LABS: BASO % 0.9 % (0-2.0); EOS % 0.4 % (0-4.5); HEMATOCRIT 35.4 % (32.4-45.2); HEMOGLOBIN 11.8 GM/dL (10.7-15.3); LYMPH % 22.2 % (8-40); MCH 32.3 pg (25.7-33.7); MCHC 33.2 g/dl (32.0-36.0); MEAN CELL VOLUME 97.2 fl (80-96); MEAN PLT VOLUME 8.7 fl (7.5-11.1); MONO % 7.3 % (3.8-10.2); NEUT % 69.2 % (42.8-82.8); PLATELET COUNT 299 10^3/uL (134-434); RBC 3.65 M/mm3 (3.60-5.2); RDW 14.9 % (11.6-15.6); URINE APPEARANCE CLEAR; URINE BILIRUBIN NEGATIVE (NEGATIVE); URINE COLOR YELLOW; URINE GLUCOSE (UA) NEGATIVE (NEGATIVE); URINE KETONE NEGATIVE (NEGATIVE); URINE LEUK ESTERASE NEGATIVE (NEGATIVE); URINE NITRITE NEGATIVE (NEGATIVE); URINE PROTEIN TRACE (NEGATIVE); URINE UROBILINOGEN 0.2 mg/dL (0.2-1.0); WHITE BLOOD COUNT 5.2 K/mm3 (4.0-10.0)
[2022-09-11 05:21] LABS: ALBUMIN 3.2 g/dl (3.4-5.0); BLOOD UREA NITROGEN 14.7 mg/dL (7-18); CALCIUM 8.7 mg/dL (8.5-10.1)
[2022-09-11 05:24] LABS: CREATININE 0.7 mg/dL (0.55-1.3)
[2022-09-11 05:26] LABS: BILIRUBIN,TOTAL 0.4 mg/dL (0.2-1); HCG,QUALITATIVE URINE Negative; TOT PROT 7.2 g/dl (6.4-8.2)
== END 2022-09-11 06:00 | disposition home or self-care (01) ==
LOC: FER 01:48
PROC: 3E0333Z Introduction of Anti-inflammatory into Peripheral Vein, Percutaneous Approach (ICD-10-PCS; principal; 2022-09-11)
PROC: 3E033GC Introduction of Other Therapeutic Substance into Peripheral Vein, Percutaneous Approach (ICD-10-PCS; 2022-09-11)
PROC: 3E033GC Introduction of Other Therapeutic Substance into Peripheral Vein, Percutaneous Approach (ICD-10-PCS; 2022-09-11)
PROC: 3E0337Z Introduction of Electrolytic and Water Balance Substance into Peripheral Vein, Percutaneous Approach (ICD-10-PCS; 2022-09-11)
DX: R10.84 Generalized abdominal pain (principal)
CPT/HCPCS: 36415; 74176-TC; 80053; 81003; 81025; 83690; 84703; 85025; 99284-25

== ENCOUNTER 2022-09-11 21:55 | Emergency (ER) | payer BC ==
[2022-09-11 22:04] VITALS: BMI 22.6
[2022-09-11] MEDS ORDERED: ACETAMINOPHEN 1000 MG/100 ML BAG IVPB ONE (23:08)
[2022-09-11] MEDS ORDERED: FAMOTIDINE 20 MG/50 ML IVPB 20 MG/50 ML MG IVPB ONE ×2 (23:08→23:27)
[2022-09-11] MEDS ORDERED: ONDANSETRON 4 MG/2 ML VIAL IVPUSH ONE (23:08)
[2022-09-11] MEDS ORDERED: SODIUM CHLORIDE 1,000 ML IV STA (23:08)
[2022-09-11] MEDS ORDERED: ONDANSETRON 4 MG/2 ML VIAL ONE (23:26)
[2022-09-11] MEDS ORDERED: ACETAMINOPHEN INJECTION 100 ML IVPB ONE (23:27)
[2022-09-12 01:16] LABS: BASO % 0.8 % (0-2.0); EOS % 1.1 % (0-4.5); HEMATOCRIT 37.3 % (32.4-45.2); HEMOGLOBIN 12.6 GM/dL (10.7-15.3); LYMPH % 31.1 % (8-40); MCH 32.9 pg (25.7-33.7); MCHC 33.7 g/dl (32.0-36.0); MEAN CELL VOLUME 97.7 fl (80-96); MEAN PLT VOLUME 8.5 fl (7.5-11.1); MONO % 11.7 % (3.8-10.2); NEUT % 55.3 % (42.8-82.8); PLATELET COUNT 264 10^3/uL (134-434); RBC 3.82 M/mm3 (3.60-5.2); RDW 15.2 % (11.6-15.6); WHITE BLOOD COUNT 3.6 K/mm3 (4.0-10.0)
[2022-09-12 01:49] LABS: ALBUMIN 3.2 g/dl (3.4-5.0); BLOOD UREA NITROGEN 9.2 mg/dL (7-18); CALCIUM 8.5 mg/dL (8.5-10.1)
[2022-09-12 01:53] LABS: CREATININE 0.7 mg/dL (0.55-1.3)
[2022-09-12 01:55] LABS: BILIRUBIN,TOTAL 0.4 mg/dL (0.2-1); TOT PROT 6.9 g/dl (6.4-8.2)
[2022-09-12 02:36] VITALS: BP 132/86; PULSE 73; RESP 14; TEMP 98.2
[2022-09-12] MEDS ORDERED: ACETAMINOPHEN INJECTION 100 ML IVPB ONE (04:01)
[2022-09-12] MEDS ORDERED: ACETAMINOPHEN 1000 MG/100 ML BAG IVPB ONE (04:14)
== END 2022-09-12 04:30 | disposition home or self-care (01) ==
LOC: FER 21:55
PROC: 3E0333Z Introduction of Anti-inflammatory into Peripheral Vein, Percutaneous Approach (ICD-10-PCS; principal; 2022-09-11)
PROC: 3E0333Z Introduction of Anti-inflammatory into Peripheral Vein, Percutaneous Approach (ICD-10-PCS; 2022-09-11)
PROC: 3E033GC Introduction of Other Therapeutic Substance into Peripheral Vein, Percutaneous Approach (ICD-10-PCS; 2022-09-11)
PROC: 3E033GC Introduction of Other Therapeutic Substance into Peripheral Vein, Percutaneous Approach (ICD-10-PCS; 2022-09-11)
PROC: 3E0337Z Introduction of Electrolytic and Water Balance Substance into Peripheral Vein, Percutaneous Approach (ICD-10-PCS; 2022-09-11)
DX: R10.33 Periumbilical pain (principal)
CPT/HCPCS: 0241U-QW; 36415; 80053; 85025; 99284-25

== ENCOUNTER 2022-09-12 13:05 | Emergency (ER) | payer BC ==
[2022-09-12 13:25] VITALS: RESP 18; TEMP 98.3; BMI 22.6
[2022-09-12] MEDS ORDERED: SODIUM CHLORIDE 1,000 ML IV ONE (13:52)
[2022-09-12] MEDS ORDERED: ONDANSETRON 4 MG/2 ML VIAL IVPB ONE (13:52)
[2022-09-12] MEDS ORDERED: HYDROmorphone HCL CARPU-JECT 1 MG/1 ML DISP.SYRIN IVPUSH ONE (13:54)
[2022-09-12] MEDS ORDERED: FAMOTIDINE 20 MG/50 ML IVPB 20 MG in PREMIX 50 IVPB ONE (13:55)
[2022-09-12] MEDS ORDERED: HYDROmorphone HCL/PF 1 MG/ML VIAL ONE (14:04)
[2022-09-12] MEDS ORDERED: ONDANSETRON 4 MG/2 ML VIAL ONE (14:29)
[2022-09-12] MEDS ORDERED: FAMOTIDINE 20 MG/50 ML IVPB 20 MG/50 ML MG IVPB ONE (14:29)
[2022-09-12 15:19] LABS: HEMATOCRIT 41.3 % (32.4-45.2); HEMOGLOBIN 13.7 G/dL (10.7-15.3); MCH 32.8 pg (25.7-33.7); MCHC 33.1 g/dl (32.0-36.0); MEAN PLT VOLUME 8.2 fl (7.5-11.1); PLATELET COUNT 298.9 10^3/uL (134-434); RBC 4.17 10^6/uL (3.60-5.2); RDW 14.8 % (11.6-15.6); WHITE BLOOD COUNT 4.6 10^3/uL (4.0-10.8)
[2022-09-12 15:24] LABS: PLATELET ESTIMATE ADEQUATE
[2022-09-12 15:27] LABS: BILIRUBIN,TOTAL 0.7 mg/dl (0.2-1); CALCIUM 8.6 mg/dl (8.5-10); CREATININE 0.8 mg/dl (0.55-1.3); TOT PROT 7.9 g/dl (6.4-8.2)
[2022-09-12 17:19] VITALS: BP 138/101; PULSE 87
== END 2022-09-12 17:15 | disposition home or self-care (01) ==
LOC: FER 13:05
PROC: 3E033GC Introduction of Other Therapeutic Substance into Peripheral Vein, Percutaneous Approach (ICD-10-PCS; principal; 2022-09-12)
DX: R10.13 Epigastric pain (principal)
CPT/HCPCS: 0241U-QW; 36415; 80053; 81003; 85027; 93005; 99284-25

== ENCOUNTER 2022-09-12 22:35 | Emergency (ER) | payer BC ==
[2022-09-12] MEDS ORDERED: SIMETHICONE 80 MG TAB.CHEW (FP) PO ONE (22:49)
[2022-09-12 22:52] VITALS: BP 130/94; PULSE 109; RESP 16; TEMP 98.2; BMI 22.6
[2022-09-12] MEDS ORDERED: SIMETHICONE 80 MG TAB.CHEW (FP) ONE (22:56)
[2022-09-13] MEDS ORDERED: SIMETHICONE 80 MG TAB.CHEW (FP) ONE (00:55)
== END 2022-09-13 00:56 | disposition home or self-care (01) ==
LOC: FER 22:35
DX: R14.1 Gas pain (principal)
CPT/HCPCS: 74019-TC-FY; 99283-25

== ENCOUNTER 2022-09-14 21:02 | Observation (INO) | payer BC ==
[2022-09-14 21:10] VITALS: RESP 18; BMI 22.8
[2022-09-14] MEDS ORDERED: ONDANSETRON 4 MG/2 ML VIAL IVPUSH ONE (21:58)
[2022-09-14] MEDS ORDERED: ACETAMINOPHEN 1000 MG/100 ML BAG IVPB ONE (21:58)
[2022-09-14] MEDS ORDERED: SODIUM CHLORIDE 1,000 ML IV STA (21:58)
[2022-09-14] MEDS ORDERED: ACETAMINOPHEN INJECTION 100 ML IVPB ONE (22:04)
[2022-09-14] MEDS ORDERED: ONDANSETRON 4 MG/2 ML VIAL ONE (22:04)
[2022-09-14 22:36] LABS: HCG,QUALITATIVE URINE Negative
[2022-09-14 22:59] LABS: HEMATOCRIT 34.9 % (32.4-45.2); HEMOGLOBIN 11.9 G/dL (10.7-15.3); MCH 32.5 pg (25.7-33.7); MEAN CELL VOLUME 95.3 fl (80-96); MEAN PLT VOLUME 9.7 fl (7.5-11.1); PLATELET COUNT 366.7 10^3/uL (134-434); RBC 3.66 10^6/uL (3.60-5.2); RDW 15.9 % (11.6-15.6); WHITE BLOOD COUNT 4.2 10^3/uL (4.0-10.8)
[2022-09-14 23:45] LABS: ANISOCYTOSIS 1+
[2022-09-14 23:46] LABS: PLATELET ESTIMATE ADEQUATE
[2022-09-14 23:47] LABS: TARGET CELLS 1+
[2022-09-14] MEDS ORDERED: HYDROmorphone HCL CARPU-JECT 1 MG/1 ML DISP.SYRIN IVPUSH ONE (23:47)
[2022-09-14] MEDS ORDERED: HYDROmorphone HCL/PF 1 MG/ML VIAL ONE (23:49)
[2022-09-15] MEDS ORDERED: HYOSCYAMINE SULFATE 0.125 MG *ODT PO ONE (01:35)
[2022-09-15 04:31] LABS: CALCIUM 8.2 mg/dL (8.5-10.1)
[2022-09-15 04:32] LABS: ALBUMIN 2.9 g/dl (3.4-5.0); BLOOD UREA NITROGEN 8.5 mg/dL (7-18)
[2022-09-15 04:35] LABS: CREATININE 0.7 mg/dL (0.55-1.3)
[2022-09-15 04:37] LABS: BILIRUBIN,TOTAL 0.2 mg/dL (0.2-1); TOT PROT 6.4 g/dl (6.4-8.2)
[2022-09-15] MEDS ORDERED: ONDANSETRON 4 MG/2 ML VIAL IVPUSH ONE (07:23)
[2022-09-15] MEDS ORDERED: ALBUTEROL SO4 0.083% IH SOL 2.5 MG/3 ML VIAL.NEB. NEB PRN (07:24)
[2022-09-15] MEDS ORDERED: ONDANSETRON 4 MG/2 ML VIAL ONE (07:24)
[2022-09-15] MEDS ORDERED: ACETAMINOPHEN 1000 MG/100 ML BAG IVPB PRN (07:26)
[2022-09-15 08:35] VITALS: BP 142/82
[2022-09-15] MEDS ORDERED: traMADol HCL 50 MG TABLET PO PRN (09:30)
[2022-09-15] MEDS ORDERED: SERTRALINE HCL 50 MG TABLET (FP) PO SCH (10:00)
[2022-09-15] MEDS ORDERED: amLODIPine BESYLATE 5 MG TABLET (FP) PO SCH (10:00)
[2022-09-15] MEDS ORDERED: BUDESONIDE/FORMETEROL FUMARATE 160/4.5 mcg INHALER IH SCH ×2 (10:00)
[2022-09-15] MEDS ORDERED: PANTOPRAZOLE SODIUM 40 MG VIAL IVPUSH SCH (10:00)
[2022-09-15] MEDS ORDERED: cloNIDine HCL 0.1 MG TABLET PO SCH (10:00)
[2022-09-15 10:42] VITALS: PULSE 87
[2022-09-15] MEDS ORDERED: NICOTINE 21 MG/24 HOURS TOPICAL PATCH TD SCH (11:15)
[2022-09-15 11:19] VITALS: TEMP 97.8
[2022-09-15] MEDS ORDERED: ZOLPIDEM TARTRATE 5 MG TABLET PO PRN (22:00)
== END 2022-09-15 13:25 | disposition left against medical advice (07) ==
LOC: FER 21:02 → FM/S 09-15 07:52
PROVIDERS: ADMIT Internal Medicine; ATTEND Internal Medicine
PROC: 3E033NZ Introduction of Analgesics, Hypnotics, Sedatives into Peripheral Vein, Percutaneous Approach (ICD-10-PCS; principal; 2022-09-15)
PROC: 3E033NZ Introduction of Analgesics, Hypnotics, Sedatives into Peripheral Vein, Percutaneous Approach (ICD-10-PCS; 2022-09-15)
PROC: 3E033GC Introduction of Other Therapeutic Substance into Peripheral Vein, Percutaneous Approach (ICD-10-PCS; 2022-09-15)
DX: R10.9 Unspecified abdominal pain (principal); K92.9 Disease of digestive system, unspecified; Z98.84 Bariatric surgery status; F10.10 Alcohol abuse, uncomplicated; K52.9 Noninfective gastroenteritis and colitis, unspecified; D64.9 Anemia, unspecified; M06.9 Rheumatoid arthritis, unspecified; K21.9 Gastro-esophageal reflux disease without esophagitis; I10 Essential (primary) hypertension; Z72.0 Tobacco use; Z91.013 Allergy to seafood; Z88.8 Allergy status to other drugs, medicaments and biological substances
CPT/HCPCS: 36415; 71045-TC-FY; 80053; 81003; 84703; 85027; 96374; 96375; 96376; 99285-25; C9803-CS; G0378; U0003; U0005

== ENCOUNTER 2022-10-12 23:35 | Observation (INO) | payer BC ==
[2022-10-13] MEDS ORDERED: ACETAMINOPHEN 1000 MG/100 ML BAG IVPB ONE (00:13)
[2022-10-13] MEDS ORDERED: ACETAMINOPHEN INJECTION 100 ML IVPB ONE (00:21)
[2022-10-13 01:09] LABS: HEMATOCRIT 33.2 % (32.4-45.2); HEMOGLOBIN 10.8 GM/dL (10.7-15.3); MCH 31.8 pg (25.7-33.7); MCHC 32.5 g/dl (32.0-36.0); MEAN CELL VOLUME 97.6 fl (80-96); MEAN PLT VOLUME 8.4 fl (7.5-11.1); PLATELET COUNT 285 10^3/uL (134-434); WHITE BLOOD COUNT 3.6 K/mm3 (4.0-10.0)
[2022-10-13 01:11] LABS: EPI CELLS >36 /uL (0-25.1); HYALINE CASTS 3 /uL (0-3.1); URINE APPEARANCE CLOUDY; URINE BACTERIA 645 /uL (0-1359); URINE BILIRUBIN NEGATIVE (NEGATIVE); URINE COLOR YELLOW; URINE GLUCOSE (UA) NEGATIVE (NEGATIVE); URINE KETONE TRACE (NEGATIVE); URINE LEUK ESTERASE TRACE (NEGATIVE); URINE NITRITE NEGATIVE (NEGATIVE); URINE PROTEIN TRACE (NEGATIVE); URINE RBC 14 /uL (0-23.9); URINE UROBILINOGEN 0.2 mg/dL (0.2-1.0); URINE WBC 6 /uL (0-25.8)
[2022-10-13 01:28] LABS: ALBUMIN 3.3 g/dl (3.4-5.0); BLOOD UREA NITROGEN 12.3 mg/dL (7-18); CALCIUM 8.2 mg/dL (8.5-10.1)
[2022-10-13 01:31] LABS: CREATININE 0.9 mg/dL (0.55-1.3)
[2022-10-13 01:33] LABS: BILIRUBIN,TOTAL 0.3 mg/dL (0.2-1); TOT PROT 7.1 g/dl (6.4-8.2)
[2022-10-13] MEDS ORDERED: DEXTROSE 5%-0.45% SALINE 1,000 ML IV SCH (04:15)
[2022-10-13] MEDS ORDERED: ACETAMINOPHEN 1000 MG/100 ML BAG IVPB PRN (04:27)
[2022-10-13 06:02] VITALS: BP 104/74; PULSE 82; RESP 18; TEMP 98.4
[2022-10-13 06:50] VITALS: BMI 23.1
== END 2022-10-13 13:13 | disposition home or self-care (01) ==
LOC: FER 23:35 → FM/S 10-13 05:26
PROVIDERS: ADMIT Internal Medicine
PROC: 3E033NZ Introduction of Analgesics, Hypnotics, Sedatives into Peripheral Vein, Percutaneous Approach (ICD-10-PCS; principal; 2022-10-13)
DX: G45.9 Transient cerebral ischemic attack, unspecified (principal); Z91.013 Allergy to seafood; Z88.8 Allergy status to other drugs, medicaments and biological substances; Z98.84 Bariatric surgery status; F17.210 Nicotine dependence, cigarettes, uncomplicated; I10 Essential (primary) hypertension; F99 Mental disorder, not otherwise specified
CPT/HCPCS: 0241U-QW; 36415; 70450-TC; 70551-TC; 80053; 80061; 81003; 83036; 84484; 85027; 96372; 99285-25; G0378

== ENCOUNTER 2022-11-16 17:58 | Inpatient (IN) | payer BC ==
[2022-11-16] MEDS ORDERED: ACETAMINOPHEN INJECTION 100 ML IVPB ONE (18:34)
[2022-11-16] MEDS ORDERED: ACETAMINOPHEN 1000 MG/100 ML BAG IVPB ONE (18:34)
[2022-11-16] MEDS ORDERED: ONDANSETRON 4 MG/2 ML VIAL ONE (18:35)
[2022-11-16] MEDS ORDERED: ONDANSETRON 4 MG/2 ML VIAL IVPB ONE (18:35)
[2022-11-16 19:53] LABS: BASO % 0.5 % (0-2.0); EOS % 0.1 % (0-4.5); HEMATOCRIT 42.3 % (32.4-45.2); HEMOGLOBIN 13.8 GM/dL (10.7-15.3); LYMPH % 18.2 % (8-40); MCH 30.8 pg (25.7-33.7); MCHC 32.7 g/dl (32.0-36.0); MEAN CELL VOLUME 94.3 fl (80-96); MONO % 8.7 % (3.8-10.2); NEUT % 72.5 % (42.8-82.8); PLATELET COUNT 286 10^3/uL (134-434); RBC 4.49 M/mm3 (3.60-5.2); RDW 16.8 % (11.6-15.6); WHITE BLOOD COUNT 4.8 K/mm3 (4.0-10.0)
[2022-11-16 19:56] LABS: ALBUMIN 2.8 g/dl (3.4-5.0); BLOOD UREA NITROGEN 11.1 mg/dL (7-18); CALCIUM 8.2 mg/dL (8.5-10.1); MAGNESIUM 1.5 mg/dL (1.8-2.4)
[2022-11-16 20:01] LABS: BILIRUBIN,TOTAL 0.4 mg/dL (0.2-1); TOT PROT 6.9 g/dl (6.4-8.2)
[2022-11-16 20:07] LABS: CREATININE 0.6 mg/dL (0.55-1.3)
[2022-11-16 20:20] LABS: HCG,QUALITATIVE URINE Negative
[2022-11-16 20:23] LABS: EPI CELLS >36 /uL (0-25.1); HYALINE CASTS 1 /uL (0-3.1); PH,URINE 7.5 (5.0-8.0); URINE APPEARANCE CLEAR; URINE BACTERIA 628 /uL (0-1359); URINE BILIRUBIN NEGATIVE (NEGATIVE); URINE COLOR YELLOW; URINE GLUCOSE (UA) NEGATIVE (NEGATIVE); URINE KETONE NEGATIVE (NEGATIVE); URINE LEUK ESTERASE TRACE (NEGATIVE); URINE NITRITE NEGATIVE (NEGATIVE); URINE PROTEIN 1+ (NEGATIVE); URINE RBC 13 /uL (0-23.9); URINE WBC 46 /uL (0-25.8)
[2022-11-16 21:24] LABS: URINE CRYSTALS NONE SEEN /hpf
[2022-11-16] MEDS ORDERED: morphine CARPU-JECT 4 MG/1 ML DISP.SYRIN IVPUSH ONE (21:46)
[2022-11-16] MEDS ORDERED: LACTATED RINGERS SOLUTION 1,000 ML/1,000 ML INFUS.BAG IV STA (23:01)
[2022-11-16] MEDS ORDERED: HYDROmorphone HCL CARPU-JECT 2 MG/1 ML DISP.SYRIN IVPUSH STA (23:26)
[2022-11-17] MEDS ORDERED: MAGNESIUM SULF 50% (8.12 MEQ/2 ML-1 GM VIAL) IVPB ONE (00:48)
[2022-11-17] MEDS ORDERED: HYDROmorphone HCl 2 MG/ML VIAL ONE ×2 (01:48→06:04)
[2022-11-17] MEDS ORDERED: MAGNESIUM SULFATE IN WATER 2 GM/50 ML IVPB IVPB ONE (02:49)
[2022-11-17] MEDS ORDERED: TRIMETHOBENZAMIDE HCL 200MG/2ML INJ IM PRN (05:04)
[2022-11-17] MEDS ORDERED: TRIMETHOBENZAMIDE HCL 200MG/2ML INJ IM ONE (05:20)
[2022-11-17] MEDS ORDERED: HYDROmorphone HCl 2 MG/ML VIAL IVPB ONE (06:00)
[2022-11-17] MEDS ORDERED: ACETAMINOPHEN 1000 MG/100 ML BAG IVPB PRN (06:28)
[2022-11-17 10:43] LABS: PHOSPHOROUS 2.5 mg/dL (2.5-4.9)
[2022-11-17] MEDS: PANTOPRAZOLE SODIUM 40 MG VIAL IVPUSH SCH ×2 (11:43→22:37)
[2022-11-17] MEDS: HYDROmorphone HCl 2 MG/ML VIAL IVPB PRN ×3 (11:43→23:57)
[2022-11-17] MEDS ORDERED: ONDANSETRON 4 MG/2 ML VIAL IVPUSH PRN (12:02)
[2022-11-17 13:16] LABS: HEMOGLOBIN 13.6 GM/dL (10.7-15.3); MCH 31.6 pg (25.7-33.7); MCHC 33.3 g/dl (32.0-36.0); MEAN CELL VOLUME 95.1 fl (80-96); MEAN PLT VOLUME 9.6 fl (7.5-11.1); PLATELET COUNT 255 10^3/uL (134-434); RBC 4.31 M/mm3 (3.60-5.2); RDW 16.5 % (11.6-15.6); WHITE BLOOD COUNT 11.8 K/mm3 (4.0-10.0)
[2022-11-17 13:20] LABS: INR 1.02 (0.83-1.09); PROTHROMBIN TIME (PATIENT) 11.8 SEC (9.7-13.0)
[2022-11-17 13:36] LABS: ANISOCYTOSIS 1+; MACROCYTOSIS 1+
[2022-11-17 13:54] LABS: CALCIUM 8.4 mg/dL (8.5-10.1); MAGNESIUM 1.9 mg/dL (1.8-2.4)
[2022-11-17] MEDS: LACTATED RINGERS SOLUTION 1,000 ML/1,000 ML INFUS.BAG IV SCH (13:54)
[2022-11-17 13:57] LABS: PHOSPHOROUS 2.6 mg/dL (2.5-4.9)
[2022-11-17 13:58] LABS: CREATININE 0.8 mg/dL (0.55-1.3)
[2022-11-17] MEDS ORDERED: ROSUVASTATIN CA 20 MG TABLET PO SCH (16:00)
[2022-11-17] MEDS: NICOTINE 14 MG/24 HOURS TOPICAL PATCH TD SCH (17:11)
[2022-11-17] MEDS: amLODIPine BESYLATE 5 MG TABLET (FP) PO SCH (17:12)
[2022-11-17] MEDS ORDERED: INSULIN (LEVEMIR) 100 UNITS/ML UNITS SQ ONE (21:34)
[2022-11-17] MEDS ORDERED: ZOLPIDEM TARTRATE 5 MG TABLET PO PRN (22:00)
[2022-11-17] MEDS: SERTRALINE HCL 50 MG TABLET (FP) PO SCH (22:36)
[2022-11-17] MEDS: cloNIDine HCL 0.1 MG TABLET PO SCH (22:36)
[2022-11-17] MEDS: ROSUVASTATIN CA 20 MG TABLET PO SCH (22:37)
[2022-11-18] MEDS: LACTATED RINGERS SOLUTION 1,000 ML/1,000 ML INFUS.BAG IV SCH ×2 (03:31→15:23)
[2022-11-18] MEDS: HYDROmorphone HCl 2 MG/ML VIAL IVPB PRN ×3 (07:41→22:08)
[2022-11-18] MEDS ORDERED: ALBUTEROL SO4 HFA INHALER IH PRN ×3 (08:19→10:54)
[2022-11-18] MEDS: ALBUTEROL SO4 0.083% IH SOL 2.5 MG/3 ML VIAL.NEB. NEB PRN (09:13)
[2022-11-18 09:58] LABS: HEMATOCRIT 32.8 % (32.4-45.2); HEMOGLOBIN 11.4 GM/dL (10.7-15.3); MCHC 34.8 g/dl (32.0-36.0); MEAN CELL VOLUME 94.9 fl (80-96); MEAN PLT VOLUME 9.4 fl (7.5-11.1); PLATELET COUNT 203 10^3/uL (134-434); RBC 3.46 M/mm3 (3.60-5.2); RDW 16.2 % (11.6-15.6); WHITE BLOOD COUNT 11.3 K/mm3 (4.0-10.0)
[2022-11-18 10:18] LABS: BLOOD UREA NITROGEN 14.5 mg/dL (7-18)
[2022-11-18 10:19] LABS: CALCIUM 8.2 mg/dL (8.5-10.1)
[2022-11-18 10:21] LABS: CREATININE 0.6 mg/dL (0.55-1.3)
[2022-11-18] MEDS: cloNIDine HCL 0.1 MG TABLET PO SCH ×2 (10:31→22:00)
[2022-11-18] MEDS: amLODIPine BESYLATE 5 MG TABLET (FP) PO SCH (10:31)
[2022-11-18] MEDS: PANTOPRAZOLE 40 MG TABLET PO SCH (10:31)
[2022-11-18] MEDS: BUDESONIDE/FORMETEROL FUMARATE 160/4.5 mcg INHALER IH SCH ×2 (10:32→22:10)
[2022-11-18] MEDS: NICOTINE 14 MG/24 HOURS TOPICAL PATCH TD SCH (10:32)
[2022-11-18 11:23] LABS: ANISOCYTOSIS 0; MACROCYTOSIS 0
[2022-11-18] MEDS: DOCUSATE SODIUM 100 MG CAPSULE (FP) PO PRN (18:45)
[2022-11-18] MEDS: SERTRALINE HCL 50 MG TABLET (FP) PO SCH (21:59)
[2022-11-18] MEDS: ROSUVASTATIN CA 20 MG TABLET PO SCH (21:59)
[2022-11-19] MEDS: HYDROmorphone HCl 2 MG/ML VIAL IVPB PRN ×3 (05:17→14:11)
[2022-11-19] MEDS: DOCUSATE SODIUM 100 MG CAPSULE (FP) PO PRN (05:29)
[2022-11-19 08:51] LABS: HEMATOCRIT 31.1 % (32.4-45.2); HEMOGLOBIN 10.5 GM/dL (10.7-15.3); MCH 31.7 pg (25.7-33.7); MCHC 33.7 g/dl (32.0-36.0); MEAN CELL VOLUME 93.9 fl (80-96); MEAN PLT VOLUME 9.5 fl (7.5-11.1); PLATELET COUNT 201 10^3/uL (134-434); RBC 3.31 M/mm3 (3.60-5.2); RDW 16.4 % (11.6-15.6); WHITE BLOOD COUNT 10.9 K/mm3 (4.0-10.0)
[2022-11-19 09:10] LABS: BLOOD UREA NITROGEN 13.9 mg/dL (7-18); CALCIUM 8.2 mg/dL (8.5-10.1)
[2022-11-19 09:14] LABS: CREATININE 0.6 mg/dL (0.55-1.3)
[2022-11-19] MEDS: KCL 10 MEQ IVPB 10 MEQ/100 ML INFUS.BAG IVPB SCH ×4 (09:15→12:12)
[2022-11-19] MEDS: amLODIPine BESYLATE 5 MG TABLET (FP) PO SCH (09:32)
[2022-11-19] MEDS: NICOTINE 14 MG/24 HOURS TOPICAL PATCH TD SCH (09:32)
[2022-11-19] MEDS: PANTOPRAZOLE 40 MG TABLET PO SCH (09:32)
[2022-11-19] MEDS: cloNIDine HCL 0.1 MG TABLET PO SCH (09:32)
[2022-11-19] MEDS: BUDESONIDE/FORMETEROL FUMARATE 160/4.5 mcg INHALER IH SCH ×2 (09:42→21:55)
[2022-11-19 10:36] LABS: ANISOCYTOSIS 1+; MACROCYTOSIS 0
[2022-11-19 10:51] LABS: MAGNESIUM 1.9 mg/dL (1.8-2.4)
[2022-11-19] MEDS ORDERED: MINERAL OIL ENEMA 133 ML ENEMA RC ONE (11:22)
[2022-11-19] MEDS ORDERED: POTASSIUM CHLORIDE ORAL LIQUID 20 MEQ/15 ML PO ONE (11:23)
[2022-11-19] MEDS ORDERED: AMOX TR/POT CLAV 500MG/125MG TABLETS (FP) PO SCH (17:30)
[2022-11-19] MEDS ORDERED: AMOX TR/POT CLAV 875MG/125MG TABLETS (FP) PO SCH (17:30)
[2022-11-19] MEDS ORDERED: ONDANSETRON 4 MG/2 ML VIAL IVPUSH PRN (19:02)
[2022-11-19] MEDS: PIPERACILLIN/TAZOB 4.5 GM 4.5 GM in DEXTROSE 5%-WATER 100 ML IVPB SCH (19:08)
[2022-11-19] MEDS ORDERED: SODIUM CHLORIDE 1,000 ML IV SCH (19:15)
[2022-11-19] MEDS ORDERED: METOPROLOL TARTRATE 5 MG/5 ML VIAL IVPUSH PRN (19:25)
[2022-11-19 20:28] LABS: EOS % 0.3 % (0-4.5); HEMATOCRIT 31.5 % (32.4-45.2); HEMOGLOBIN 10.5 GM/dL (10.7-15.3); LYMPH % 3.9 % (8-40); MCH 31.5 pg (25.7-33.7); MCHC 33.4 g/dl (32.0-36.0); MEAN CELL VOLUME 94.3 fl (80-96); MEAN PLT VOLUME 8.8 fl (7.5-11.1); MONO % 2.8 % (3.8-10.2); PLATELET COUNT 218 10^3/uL (134-434); RBC 3.34 M/mm3 (3.60-5.2); RDW 16.6 % (11.6-15.6); WHITE BLOOD COUNT 10.8 K/mm3 (4.0-10.0)
[2022-11-19 20:34] LABS: INR 1.15 (0.83-1.09); PROTHROMBIN TIME (PATIENT) 13.3 SEC (9.7-13.0)
[2022-11-19 20:47] LABS: BLOOD UREA NITROGEN 11.1 mg/dL (7-18); CALCIUM 8.3 mg/dL (8.5-10.1)
[2022-11-19 20:51] LABS: CREATININE 0.6 mg/dL (0.55-1.3)
[2022-11-19 20:52] LABS: TOT PROT 6.3 g/dl (6.4-8.2)
[2022-11-19 20:57] LABS: BILIRUBIN,TOTAL 0.7 mg/dL (0.2-1)
[2022-11-19 21:00] LABS: ALBUMIN 2.2 g/dl (3.4-5.0)
[2022-11-19] MEDS ORDERED: ALBUTEROL SO4 0.083% IH SOL 2.5 MG/3 ML VIAL.NEB. NEB ONE (21:00)
[2022-11-19] MEDS: ALBUTEROL SO4 0.083% IH SOL 2.5 MG/3 ML VIAL.NEB. NEB PRN (21:02)
[2022-11-19] MEDS ORDERED: ACETAMINOPHEN INJECTION 100 ML IVPB ONE (21:20)
[2022-11-19] MEDS ORDERED: DEXMEDETOMIDINE HCL 200 MCG/2 ML IVPB ONE (21:20)
[2022-11-19] MEDS ORDERED: PROPOFOL 20 ML ONE ×2 (21:24→22:24)
[2022-11-19] MEDS ORDERED: LIDOCAINE HCL/PF 2% SDV 5ML VIAL ONE (21:24)
[2022-11-19] MEDS ORDERED: ONDANSETRON 4 MG/2 ML VIAL ONE (21:24)
[2022-11-19] MEDS ORDERED: DEXAMETHASONE SOD PHOSPHATE 4 MG/1 ML VIAL ONE (21:24)
[2022-11-19] MEDS ORDERED: MIDAZOLAM HCL 2 MG/2 ML SINGLE DOSE VIAL ONE ×2 (21:25→22:11)
[2022-11-19] MEDS ORDERED: ROCURONIUM BROMIDE 50 MG/5 ML SYRINGE ONE ×2 (21:25→22:22)
[2022-11-19] MEDS ORDERED: SUCCINYLCHOLINE CHLORIDE 200 MG/10 ML SYRINGE ONE (21:25)
[2022-11-19] MEDS ORDERED: KETAMINE HCL 500 MG/10 ML VIAL ONE (21:30)
[2022-11-19] MEDS ORDERED: PANTOPRAZOLE 40 MG TABLET PO SCH (22:00)
[2022-11-19 22:01] LABS: ANISOCYTOSIS 1+; MACROCYTOSIS 0; OVALOCYTE 1+; TARGET CELLS 2+
[2022-11-19] MEDS ORDERED: HYDROmorphone HCl 2 MG/ML VIAL ONE (22:20)
[2022-11-19] MEDS ORDERED: METOPROLOL TARTRATE 5 MG/5 ML VIAL ONE (22:34)
[2022-11-20] MEDS ORDERED: SUGAMMADEX SODIUM 200 MG/2 ML VIAL ONE (00:09)
[2022-11-20] MEDS ORDERED: ROCURONIUM BROMIDE 50 MG/5 ML SYRINGE ONE ×2 (00:13→02:06)
[2022-11-20] MEDS ORDERED: PIPERACILLIN/TAZOBACTAM 3.375 GM VIAL IVPB ONE ×2 (00:15→00:45)
[2022-11-20] MEDS ORDERED: SODIUM CHLORIDE 0.9% P/F 10 ML VIAL IJ ONE (00:27)
[2022-11-20] MEDS ORDERED: HYDROmorphone HCl 2 MG/ML VIAL ONE (01:14)
[2022-11-20] MEDS ORDERED: PIPERACILLIN/TAZOB 4.5 GM 4.5 GM in DEXTROSE 5%-WATER 100 ML IVPB SCH ×2 (02:00→10:00)
[2022-11-20] MEDS: PIPERACILLIN/TAZOB 4.5 GM 4.5 GM in DEXTROSE 5%-WATER 100 ML IVPB SCH ×2 (02:07→17:38)
[2022-11-20] MEDS ORDERED: ONDANSETRON 4 MG/2 ML VIAL ONE (02:58)
[2022-11-20] MEDS ORDERED: KETOROLAC TROMETHAMINE 30 MG/1 ML VIAL ONE (02:59)
[2022-11-20] MEDS ORDERED: ONDANSETRON 4 MG/2 ML VIAL IVPUSH PRN ×5 (03:31→04:07)
[2022-11-20] MEDS ORDERED: HYDROmorphone HCL CARPU-JECT 2 MG/1 ML DISP.SYRIN IVPB PRN ×4 (03:36→04:07)
[2022-11-20] MEDS ORDERED: LACTATED RINGERS SOLUTION 1,000 ML IV SCH ×2 (03:45→04:07)
[2022-11-20] MEDS ORDERED: HYDROmorphone *PCA* 10MG/50ML DISP.SYRIN PCA SCH (03:45)
[2022-11-20] MEDS ORDERED: SODIUM CHLORIDE 1,000 ML IV SCH ×3 (03:45→04:07)
[2022-11-20] MEDS ORDERED: TRIMETHOBENZAMIDE HCL 200MG/2ML INJ IM PRN (04:07)
[2022-11-20] MEDS ORDERED: DOCUSATE SODIUM 100 MG CAPSULE (FP) PO PRN (04:07)
[2022-11-20] MEDS ORDERED: METOPROLOL TARTRATE 5 MG/5 ML VIAL IVPUSH PRN (04:07)
[2022-11-20] MEDS ORDERED: ALBUTEROL SO4 HFA INHALER IH PRN (04:07)
[2022-11-20] MEDS ORDERED: ALBUTEROL SO4 0.083% IH SOL 2.5 MG/3 ML VIAL.NEB. NEB PRN (04:07)
[2022-11-20] MEDS: HYDROmorphone *PCA* 10MG/50ML DISP.SYRIN PCA SCH ×4 (05:15→18:47)
[2022-11-20 06:58] LABS: HEMATOCRIT 33.3 % (32.4-45.2); HEMOGLOBIN 10.9 GM/dL (10.7-15.3); MCH 31.5 pg (25.7-33.7); MCHC 32.8 g/dl (32.0-36.0); MEAN PLT VOLUME 9.5 fl (7.5-11.1); PLATELET COUNT 215 10^3/uL (134-434); RBC 3.47 M/mm3 (3.60-5.2); RDW 16.5 % (11.6-15.6); WHITE BLOOD COUNT 5.8 K/mm3 (4.0-10.0)
[2022-11-20 07:13] LABS: CALCIUM 7.2 mg/dL (8.5-10.1); INR 1.08 (0.83-1.09); PROTHROMBIN TIME (PATIENT) 12.5 SEC (9.7-13.0)
[2022-11-20 07:14] LABS: MAGNESIUM 1.6 mg/dL (1.8-2.4)
[2022-11-20 07:17] LABS: CREATININE 0.6 mg/dL (0.55-1.3)
[2022-11-20 07:18] LABS: BILIRUBIN,TOTAL 0.6 mg/dL (0.2-1); PHOSPHOROUS 4.2 mg/dL (2.5-4.9)
[2022-11-20 07:19] LABS: TOT PROT 4.6 g/dl (6.4-8.2)
[2022-11-20 07:50] LABS: ALBUMIN 1.5 g/dl (3.4-5.0)
[2022-11-20] MEDS ORDERED: ACETAMINOPHEN 1000 MG/100 ML BAG IVPB SCH (08:00)
[2022-11-20] MEDS: ACETAMINOPHEN 1000 MG/100 ML BAG IVPB SCH ×3 (09:40→20:48)
[2022-11-20] MEDS: MUPIROCIN 2% TOPICAL OINTMENT FOR DECOLONIZATION NS SCH ×2 (09:57→22:24)
[2022-11-20] MEDS: BUDESONIDE/FORMETEROL FUMARATE 160/4.5 mcg INHALER IH SCH ×2 (09:58→22:22)
[2022-11-20] MEDS ORDERED: PANTOPRAZOLE 40 MG TABLET PO SCH (10:00)
[2022-11-20] MEDS ORDERED: PANTOPRAZOLE SODIUM 40 MG VIAL IVPUSH SCH (10:00)
[2022-11-20] MEDS ORDERED: PIPERACILLIN/TAZOB 3.375 GM 3.375 GM in DEXTROSE 5%-WATER - 50 ML IVPB SCH ×3 (10:00)
[2022-11-20] MEDS ORDERED: MUPIROCIN 2% TOPICAL OINTMENT FOR DECOLONIZATION NS SCH (10:00)
[2022-11-20] MEDS ORDERED: NICOTINE 14 MG/24 HOURS TOPICAL PATCH TD SCH (10:00)
[2022-11-20 12:38] LABS: ALBUMIN 1.5 g/dl (3.4-5.0); BLOOD UREA NITROGEN 10.8 mg/dL (7-18); CALCIUM 7.2 mg/dL (8.5-10.1)
[2022-11-20 12:41] LABS: CREATININE 0.6 mg/dL (0.55-1.3)
[2022-11-20 12:42] LABS: BILIRUBIN,TOTAL 0.9 mg/dL (0.2-1); TOT PROT 4.6 g/dl (6.4-8.2)
[2022-11-20] MEDS: NICOTINE 21 MG/24 HOURS TOPICAL PATCH TD SCH (17:39)
[2022-11-20 21:47] LABS: BASO % 0.2 % (0-2.0); EOS % 0.5 % (0-4.5); HEMATOCRIT 26.5 % (32.4-45.2); LYMPH % 2.5 % (8-40); MCH 32.1 pg (25.7-33.7); MEAN CELL VOLUME 94.5 fl (80-96); MEAN PLT VOLUME 8.5 fl (7.5-11.1); MONO % 3.3 % (3.8-10.2); NEUT % 93.5 % (42.8-82.8); PLATELET COUNT 198 10^3/uL (134-434); RDW 16.4 % (11.6-15.6); WHITE BLOOD COUNT 7.5 K/mm3 (4.0-10.0)
[2022-11-20] MEDS ORDERED: CHLORHEXIDINE GLUCONATE 4% CLEANSER FOR DECOLONIZATION TP SCH (22:00)
[2022-11-20 22:12] LABS: ANISOCYTOSIS 2+; MACROCYTOSIS 1+; OVALOCYTE 1+; TARGET CELLS 3+; TEAR DROP CELLS 1+
[2022-11-20] MEDS: PANTOPRAZOLE SODIUM 40 MG VIAL IVPUSH SCH (22:23)
[2022-11-20] MEDS: CHLORHEXIDINE GLUCONATE 4% CLEANSER FOR DECOLONIZATION TP SCH (22:24)
[2022-11-21] MEDS: ACETAMINOPHEN 1000 MG/100 ML BAG IVPB SCH (01:41)
[2022-11-21] MEDS: PIPERACILLIN/TAZOB 4.5 GM 4.5 GM in DEXTROSE 5%-WATER 100 ML IVPB SCH ×3 (02:08→18:26)
[2022-11-21 07:00] LABS: MCH 30.6 pg (25.7-33.7); MCHC 32.3 g/dl (32.0-36.0); MEAN CELL VOLUME 94.7 fl (80-96); MEAN PLT VOLUME 8.9 fl (7.5-11.1); PLATELET COUNT 269 10^3/uL (134-434); RBC 3.27 M/mm3 (3.60-5.2); RDW 16.4 % (11.6-15.6); WHITE BLOOD COUNT 11.1 K/mm3 (4.0-10.0)
[2022-11-21 07:17] LABS: CALCIUM 7.3 mg/dL (8.5-10.1)
[2022-11-21 07:18] LABS: ALBUMIN 1.6 g/dl (3.4-5.0); BLOOD UREA NITROGEN 9.5 mg/dL (7-18)
[2022-11-21 07:21] LABS: CREATININE 0.7 mg/dL (0.55-1.3)
[2022-11-21 07:23] LABS: BILIRUBIN,TOTAL 0.4 mg/dL (0.2-1)
[2022-11-21] MEDS: PANTOPRAZOLE SODIUM 40 MG VIAL IVPUSH SCH ×2 (09:19→22:36)
[2022-11-21] MEDS: NICOTINE 21 MG/24 HOURS TOPICAL PATCH TD SCH (09:19)
[2022-11-21] MEDS: MUPIROCIN 2% TOPICAL OINTMENT FOR DECOLONIZATION NS SCH ×2 (09:20→22:36)
[2022-11-21] MEDS: BUDESONIDE/FORMETEROL FUMARATE 160/4.5 mcg INHALER IH SCH ×2 (09:20→22:36)
[2022-11-21] MEDS ORDERED: FUROSEMIDE 40 MG/4 ML INJECTABLE VIAL IVPUSH ONE ×2 (09:52→15:51)
[2022-11-21 10:03] LABS: ARTERIAL BLD GAS O2 SATURATION 87.1 % (95-98); ARTERIAL BLOOD GAS BASE EXCESS -3.8 mmol/L (-2-2); ARTERIAL BLOOD GAS PO2 56.1 mmHg (80-100); ARTERIAL BLOOD GAS pH 7.327 (7.350-7.450)
[2022-11-21 10:05] LABS: ALLENS TEST POSITIVE
[2022-11-21] MEDS: KCL 10 MEQ IVPB 10 MEQ/100 ML INFUS.BAG IVPB SCH ×4 (11:17→19:29)
[2022-11-21] MEDS: HYDROmorphone *PCA* 10MG/50ML DISP.SYRIN PCA SCH (11:21)
[2022-11-21 14:01] VITALS: BMI 24.2
[2022-11-21 16:40] LABS: CHLORIDE 105 mmol/L (98-107); SODIUM 138 mmol/L (136-145)
[2022-11-21 16:42] LABS: ANION GAP 7 MMOL/L (8-16); BLOOD UREA NITROGEN 8.3 mg/dL (7-18); CO2 26 mmol/L (21-32); GLUCOSE,RANDOM 101 mg/dL (74-106)
[2022-11-21 16:45] LABS: CREATININE 0.6 mg/dL (0.55-1.3)
[2022-11-21 16:55] LABS: CALCIUM 6.9 mg/dL (8.5-10.1)
[2022-11-21] MEDS ORDERED: LORazepam 2 MG/ML SDV VIAL IVPUSH ONE (18:00)
[2022-11-21 20:00] LABS: MAGNESIUM 1.7 mg/dL (1.8-2.4)
[2022-11-21] MEDS ORDERED: MAGNESIUM 1GM/D5W - 1 GM/100 ML IVPB IVPB ONE (20:24)
[2022-11-21] MEDS: CHLORHEXIDINE GLUCONATE 4% CLEANSER FOR DECOLONIZATION TP SCH (22:36)
[2022-11-22] MEDS: PIPERACILLIN/TAZOB 4.5 GM 4.5 GM in DEXTROSE 5%-WATER 100 ML IVPB SCH ×3 (01:30→17:00)
[2022-11-22] MEDS ORDERED: DEXTROSE 50%-WATER 25 GM/50 ML DISP.SYRIN IVPUSH PRN (03:32)
[2022-11-22 07:48] LABS: HEMATOCRIT 24.6 % (32.4-45.2); HEMOGLOBIN 8.3 GM/dL (10.7-15.3); MCH 31.6 pg (25.7-33.7); MCHC 33.8 g/dl (32.0-36.0); MEAN CELL VOLUME 93.5 fl (80-96); MEAN PLT VOLUME 8.9 fl (7.5-11.1); PLATELET COUNT 282 10^3/uL (134-434); RBC 2.63 M/mm3 (3.60-5.2); RDW 16.3 % (11.6-15.6); WHITE BLOOD COUNT 9.8 K/mm3 (4.0-10.0)
[2022-11-22 08:52] LABS: CALCIUM 7.2 mg/dL (8.5-10.1)
[2022-11-22 08:53] LABS: ALBUMIN 1.4 g/dl (3.4-5.0); MAGNESIUM 2.3 mg/dL (1.8-2.4)
[2022-11-22] MEDS ORDERED: DEXTROSE 50%-WATER - 25 GM/50 ML VIAL IVPUSH ONE (08:54)
[2022-11-22] MEDS ORDERED: FUROSEMIDE 40 MG/4 ML INJECTABLE VIAL IVPUSH ONE (08:55)
[2022-11-22 08:56] LABS: CREATININE 0.5 mg/dL (0.55-1.3); PHOSPHOROUS 1.8 mg/dL (2.5-4.9)
[2022-11-22 08:57] LABS: BILIRUBIN,TOTAL 0.4 mg/dL (0.2-1); TOT PROT 4.6 g/dl (6.4-8.2)
[2022-11-22] MEDS ORDERED: KCL 10 MEQ IVPB 10 MEQ/100 ML INFUS.BAG IVPB SCH (09:00)
[2022-11-22] MEDS: PANTOPRAZOLE SODIUM 40 MG VIAL IVPUSH SCH ×2 (09:58→21:57)
[2022-11-22] MEDS: BUDESONIDE/FORMETEROL FUMARATE 160/4.5 mcg INHALER IH SCH ×2 (09:59→21:57)
[2022-11-22] MEDS: MUPIROCIN 2% TOPICAL OINTMENT FOR DECOLONIZATION NS SCH ×2 (09:59→21:49)
[2022-11-22] MEDS: NICOTINE 21 MG/24 HOURS TOPICAL PATCH TD SCH (09:59)
[2022-11-22] MEDS ORDERED: POTASSIUM PHOSPHATE 30 MM in DEXTROSE 5%-WATER - 250 ML IVPB ONE (10:15)
[2022-11-22] MEDS: ACETAMINOPHEN 1000 MG/100 ML BAG IVPB PRN (11:18)
[2022-11-22] MEDS: HYDROmorphone *PCA* 10MG/50ML DISP.SYRIN PCA SCH ×2 (12:46→20:21)
[2022-11-22] MEDS ORDERED: LORazepam 2 MG/ML SDV VIAL IVPUSH ONE (14:19)
[2022-11-22 19:00] LABS: CALCIUM 7.3 mg/dL (8.5-10.1)
[2022-11-22 19:01] LABS: BLOOD UREA NITROGEN 5.7 mg/dL (7-18); MAGNESIUM 2.1 mg/dL (1.8-2.4)
[2022-11-22 19:04] LABS: CREATININE 0.6 mg/dL (0.55-1.3); PHOSPHOROUS 2.7 mg/dL (2.5-4.9)
[2022-11-22] MEDS: KCL 10 MEQ IVPB 10 MEQ/100 ML INFUS.BAG IVPB SCH ×2 (20:31→21:48)
[2022-11-22] MEDS: HEPARIN NA (PORCINE) 5,000 UNITS/ML 1ML VIAL SQ SCH (21:49)
[2022-11-22] MEDS: CHLORHEXIDINE GLUCONATE 4% CLEANSER FOR DECOLONIZATION TP SCH (21:49)
[2022-11-22] MEDS: LORazepam 2 MG/ML SDV VIAL IVPUSH SCH (22:39)
[2022-11-23] MEDS: LORazepam 2 MG/ML SDV VIAL IVPUSH SCH ×3 (02:07→07:51)
[2022-11-23] MEDS: PIPERACILLIN/TAZOB 4.5 GM 4.5 GM in DEXTROSE 5%-WATER 100 ML IVPB SCH ×3 (02:07→18:30)
[2022-11-23] MEDS: ACETAMINOPHEN 1000 MG/100 ML BAG IVPB PRN (06:13)
[2022-11-23] MEDS ORDERED: FUROSEMIDE 40 MG/4 ML INJECTABLE VIAL IVPUSH ONE (06:18)
[2022-11-23 07:27] LABS: HEMATOCRIT 22.9 % (32.4-45.2); HEMOGLOBIN 7.9 GM/dL (10.7-15.3); MCH 31.8 pg (25.7-33.7); MCHC 34.5 g/dl (32.0-36.0); MEAN CELL VOLUME 92.1 fl (80-96); MEAN PLT VOLUME 9.1 fl (7.5-11.1); PLATELET COUNT 327 10^3/uL (134-434); RBC 2.49 M/mm3 (3.60-5.2); RDW 15.8 % (11.6-15.6); WHITE BLOOD COUNT 10.5 K/mm3 (4.0-10.0)
[2022-11-23 07:43] LABS: CHLORIDE 102 mmol/L (98-107); SODIUM 136 mmol/L (136-145)
[2022-11-23 07:49] LABS: CALCIUM 7.2 mg/dL (8.5-10.1)
[2022-11-23 07:50] LABS: ALBUMIN 1.4 g/dl (3.4-5.0); ANION GAP 5 MMOL/L (8-16); BLOOD UREA NITROGEN 5.2 mg/dL (7-18); CO2 29 mmol/L (21-32); GLUCOSE,RANDOM 81 mg/dL (74-106)
[2022-11-23 07:51] LABS: PHOSPHOROUS 1.5 mg/dL (2.5-4.9); SGPT/ALT 23 U/L (13-61)
[2022-11-23 07:53] LABS: BILIRUBIN,TOTAL 0.4 mg/dL (0.2-1); CREATININE 0.5 mg/dL (0.55-1.3); SGOT/AST 52 U/L (15-37); TOT PROT 4.9 g/dl (6.4-8.2)
[2022-11-23 07:54] LABS: ALK PHOS 111 U/L (45-117)
[2022-11-23] MEDS ORDERED: POTASSIUM PHOSPHATE 30 MM in SODIUM CHLORIDE 250 ML IVPB ONE (08:34)
[2022-11-23 08:47] LABS: URINE APPEARANCE CLEAR; URINE BILIRUBIN NEGATIVE (NEGATIVE); URINE COLOR YELLOW; URINE GLUCOSE (UA) NEGATIVE (NEGATIVE); URINE KETONE NEGATIVE (NEGATIVE); URINE LEUK ESTERASE NEGATIVE (NEGATIVE); URINE NITRITE NEGATIVE (NEGATIVE); URINE PROTEIN NEGATIVE (NEGATIVE); URINE UROBILINOGEN 0.2 mg/dL (0.2-1.0)
[2022-11-23] MEDS ORDERED: POTASSIUM PHOSPHATE 30 MM in DEXTROSE 5%-WATER - 250 ML IVPB ONE (09:00)
[2022-11-23 09:32] LABS: ANISOCYTOSIS 0; MACROCYTOSIS 0
[2022-11-23] MEDS: MUPIROCIN 2% TOPICAL OINTMENT FOR DECOLONIZATION NS SCH ×2 (10:15→23:05)
[2022-11-23] MEDS: NICOTINE 21 MG/24 HOURS TOPICAL PATCH TD SCH (10:15)
[2022-11-23] MEDS: HEPARIN NA (PORCINE) 5,000 UNITS/ML 1ML VIAL SQ SCH ×2 (10:15→23:06)
[2022-11-23] MEDS: PANTOPRAZOLE SODIUM 40 MG VIAL IVPUSH SCH ×2 (10:15→23:06)
[2022-11-23] MEDS: HYDROmorphone *PCA* 10MG/50ML DISP.SYRIN PCA SCH (10:16)
[2022-11-23] MEDS: BUDESONIDE/FORMETEROL FUMARATE 160/4.5 mcg INHALER IH SCH ×2 (11:00→23:06)
[2022-11-23] MEDS: LORazepam 2 MG/ML SDV VIAL IVPUSH PRN ×2 (13:15→23:07)
[2022-11-23] MEDS: CHLORHEXIDINE GLUCONATE 4% CLEANSER FOR DECOLONIZATION TP SCH (23:06)
[2022-11-24] MEDS: PIPERACILLIN/TAZOB 4.5 GM 4.5 GM in DEXTROSE 5%-WATER 100 ML IVPB SCH ×3 (01:49→18:21)
[2022-11-24] MEDS: LORazepam 2 MG/ML SDV VIAL IVPUSH PRN (05:09)
[2022-11-24] MEDS ORDERED: VANCOMYCIN/WATER FOR INJ (PEG) 1,000 MG/200 ML BAG IVPB SCH (05:15)
[2022-11-24 08:14] LABS: HEMATOCRIT 21.2 % (32.4-45.2); HEMOGLOBIN 7.2 GM/dL (10.7-15.3); MCH 31.1 pg (25.7-33.7); MEAN CELL VOLUME 91.6 fl (80-96); MEAN PLT VOLUME 8.7 fl (7.5-11.1); PLATELET COUNT 310 10^3/uL (134-434); RBC 2.31 M/mm3 (3.60-5.2); RDW 15.9 % (11.6-15.6); WHITE BLOOD COUNT 13.1 K/mm3 (4.0-10.0)
[2022-11-24 08:25] LABS: CALCIUM 7.2 mg/dL (8.5-10.1)
[2022-11-24 08:26] LABS: ALBUMIN 1.3 g/dl (3.4-5.0)
[2022-11-24] MEDS: HYDROmorphone *PCA* 10MG/50ML DISP.SYRIN PCA SCH ×3 (08:28→23:12)
[2022-11-24 08:29] LABS: CREATININE 0.5 mg/dL (0.55-1.3)
[2022-11-24 08:30] LABS: BILIRUBIN,TOTAL 0.6 mg/dL (0.2-1); TOT PROT 4.8 g/dl (6.4-8.2)
[2022-11-24 09:04] LABS: ANISOCYTOSIS 0; HELMET CELLS 0; HOWELL-JOLLY BODIES 0; MACROCYTOSIS 0; OVALOCYTE 0; ROULEAU 0; SICKELED CELLS 0; TARGET CELLS 0; TEAR DROP CELLS 0; TOXIC GRANULATION 0
[2022-11-24] MEDS ORDERED: AMINO ACIDS 4.25%/D5W 1,000 ML IV SCH (09:30)
[2022-11-24] MEDS: NICOTINE 21 MG/24 HOURS TOPICAL PATCH TD SCH (09:37)
[2022-11-24] MEDS: HEPARIN NA (PORCINE) 5,000 UNITS/ML 1ML VIAL SQ SCH ×2 (09:37→22:01)
[2022-11-24] MEDS: PANTOPRAZOLE SODIUM 40 MG VIAL IVPUSH SCH ×2 (09:37→22:00)
[2022-11-24] MEDS ORDERED: DOCUSATE SODIUM 100 MG CAPSULE (FP) PO PRN (11:00)
[2022-11-24] MEDS ORDERED: LORazepam 2 MG/ML SDV VIAL IVPUSH PRN (11:00)
[2022-11-24] MEDS ORDERED: ALBUTEROL SO4 HFA INHALER IH PRN (11:00)
[2022-11-24] MEDS ORDERED: ONDANSETRON 4 MG/2 ML VIAL IVPUSH PRN (11:00)
[2022-11-24] MEDS ORDERED: TRIMETHOBENZAMIDE HCL 200MG/2ML INJ IM PRN (11:00)
[2022-11-24] MEDS: FUROSEMIDE 40 MG/4 ML INJECTABLE VIAL IVPUSH SCH (12:45)
[2022-11-24 13:03] LABS: MAGNESIUM 1.8 mg/dL (1.8-2.4)
[2022-11-24 13:07] LABS: PHOSPHOROUS 2.9 mg/dL (2.5-4.9)
[2022-11-24 13:11] LABS: N-TERMINAL BNP 3855.4 pg/ml (5-125)
[2022-11-24 14:19] LABS: HEMATOCRIT 21.5 % (32.4-45.2); HEMOGLOBIN 7.4 GM/dL (10.7-15.3); MCH 31.4 pg (25.7-33.7); MCHC 34.2 g/dl (32.0-36.0); MEAN CELL VOLUME 91.6 fl (80-96); MEAN PLT VOLUME 8.6 fl (7.5-11.1); PLATELET COUNT 317 10^3/uL (134-434); RBC 2.35 M/mm3 (3.60-5.2); RDW 15.9 % (11.6-15.6); WHITE BLOOD COUNT 12.4 K/mm3 (4.0-10.0)
[2022-11-24 14:43] LABS: CALCIUM 7.6 mg/dL (8.5-10.1)
[2022-11-24 14:44] LABS: ALBUMIN 1.3 g/dl (3.4-5.0); BLOOD UREA NITROGEN 9.3 mg/dL (7-18); MAGNESIUM 1.8 mg/dL (1.8-2.4)
[2022-11-24 14:46] LABS: PHOSPHOROUS 2.2 mg/dL (2.5-4.9)
[2022-11-24 14:47] LABS: CREATININE 0.5 mg/dL (0.55-1.3)
[2022-11-24 14:48] LABS: BILIRUBIN,TOTAL 0.6 mg/dL (0.2-1); TOT PROT 4.9 g/dl (6.4-8.2)
[2022-11-24 15:00] LABS: ANISOCYTOSIS 0; MACROCYTOSIS 0
[2022-11-24] MEDS: VANCOMYCIN/WATER FOR INJ (PEG) 1,000 MG/200 ML BAG IVPB SCH (16:40)
[2022-11-24 17:21] LABS: HEMOGLOBIN 7.7 GM/dL (10.7-15.3); MEAN CELL VOLUME 89.8 fl (80-96); RBC 2.56 M/mm3 (3.60-5.2); WHITE BLOOD COUNT 12.2 K/mm3 (4.0-10.0)
[2022-11-24 17:22] LABS: MCH 30.2 pg (25.7-33.7); MCHC 33.6 g/dl (32.0-36.0); MEAN PLT VOLUME 8.3 fl (7.5-11.1); PLATELET COUNT 342 10^3/uL (134-434); RDW 16.3 % (11.6-15.6)
[2022-11-24] MEDS: BUDESONIDE/FORMETEROL FUMARATE 160/4.5 mcg INHALER IH SCH ×2 (18:38→22:00)
[2022-11-24] MEDS: MUPIROCIN 2% TOPICAL OINTMENT FOR DECOLONIZATION NS SCH (18:38)
[2022-11-24] MEDS: SENNOSIDES 8.6MG TABLET (FP) PO PRN (22:03)
[2022-11-25] MEDS: PIPERACILLIN/TAZOB 4.5 GM 4.5 GM in DEXTROSE 5%-WATER 100 ML IVPB SCH ×3 (01:03→17:40)
[2022-11-25] MEDS: VANCOMYCIN/WATER FOR INJ (PEG) 1,000 MG/200 ML BAG IVPB SCH (05:42)
[2022-11-25] MEDS: AMINO ACIDS 4.25%/D5W 1,000 ML IV SCH (09:58)
[2022-11-25] MEDS: PANTOPRAZOLE SODIUM 40 MG VIAL IVPUSH SCH ×2 (09:59→21:36)
[2022-11-25] MEDS: BUDESONIDE/FORMETEROL FUMARATE 160/4.5 mcg INHALER IH SCH ×2 (10:00→21:36)
[2022-11-25 10:21] LABS: BASO % 0.2 % (0-2.0); EOS % 0.9 % (0-4.5); HEMATOCRIT 20.6 % (32.4-45.2); HEMOGLOBIN 7.3 GM/dL (10.7-15.3); LYMPH % 6.7 % (8-40); MCHC 35.5 g/dl (32.0-36.0); MEAN CELL VOLUME 90.3 fl (80-96); MEAN PLT VOLUME 8.4 fl (7.5-11.1); MONO % 2.4 % (3.8-10.2); NEUT % 89.8 % (42.8-82.8); PLATELET COUNT 350 10^3/uL (134-434); RBC 2.28 M/mm3 (3.60-5.2); RDW 16.1 % (11.6-15.6); WHITE BLOOD COUNT 11.5 K/mm3 (4.0-10.0)
[2022-11-25] MEDS: FUROSEMIDE 40 MG/4 ML INJECTABLE VIAL IVPUSH SCH (10:22)
[2022-11-25] MEDS: HEPARIN NA (PORCINE) 5,000 UNITS/ML 1ML VIAL SQ SCH ×2 (10:39→21:36)
[2022-11-25] MEDS: NICOTINE 21 MG/24 HOURS TOPICAL PATCH TD SCH (10:40)
[2022-11-25 10:50] LABS: BLOOD UREA NITROGEN 7.1 mg/dL (7-18); CALCIUM 7.9 mg/dL (8.5-10.1)
[2022-11-25 10:51] LABS: ALBUMIN 1.4 g/dl (3.4-5.0)
[2022-11-25 10:53] LABS: CREATININE 0.5 mg/dL (0.55-1.3)
[2022-11-25 10:54] LABS: BILIRUBIN,TOTAL 0.6 mg/dL (0.2-1); TOT PROT 5.5 g/dl (6.4-8.2)
[2022-11-25] MEDS: HYDROmorphone *PCA* 10MG/50ML DISP.SYRIN PCA SCH ×3 (11:04→16:42)
[2022-11-25] MEDS ORDERED: HYDROmorphone *PCA* 10MG/50ML DISP.SYRIN PCA SCH (11:24)
[2022-11-25 11:30] LABS: ANISOCYTOSIS 0; HELMET CELLS 0; HOWELL-JOLLY BODIES 0; MACROCYTOSIS 0; OVALOCYTE 0; ROULEAU 0; SICKELED CELLS 0; TARGET CELLS 0; TEAR DROP CELLS 0; TOXIC GRANULATION 0
[2022-11-25] MEDS ORDERED: KCL 10 MEQ IVPB 10 MEQ/100 ML INFUS.BAG IVPB SCH (12:00)
[2022-11-25] MEDS: KCL 10 MEQ IVPB 10 MEQ/100 ML INFUS.BAG IVPB SCH ×3 (12:51→14:58)
[2022-11-25] MEDS: ALBUTEROL SO4 0.083% IH SOL 2.5 MG/3 ML VIAL.NEB. NEB PRN ×2 (16:29→21:00)
[2022-11-25] MEDS ORDERED: ACETYLCYSTEINE 20% 200MG/ML 4 ML VIAL *FOR ORAL / INH USE ONLY ONE (20:41)
[2022-11-25] MEDS: SENNOSIDES 8.6MG TABLET (FP) PO PRN (21:37)
[2022-11-25] MEDS ORDERED: ACETYLCYSTEINE 20% 200MG/ML 4 ML VIAL *FOR ORAL / INH USE ONLY NEB SCH (22:00)
[2022-11-26] MEDS: PIPERACILLIN/TAZOB 4.5 GM 4.5 GM in DEXTROSE 5%-WATER 100 ML IVPB SCH ×3 (01:28→17:37)
[2022-11-26] MEDS: HEPARIN NA (PORCINE) 5,000 UNITS/ML 1ML VIAL SQ SCH ×3 (06:29→21:10)
[2022-11-26 06:58] LABS: CHLORIDE 96 mmol/L (98-107); SODIUM 135 mmol/L (136-145)
[2022-11-26 07:05] LABS: CALCIUM 7.6 mg/dL (8.5-10.1)
[2022-11-26 07:06] LABS: ALBUMIN 1.4 g/dl (3.4-5.0); BLOOD UREA NITROGEN 6.5 mg/dL (7-18); CO2 33 mmol/L (21-32); GLUCOSE,RANDOM 118 mg/dL (74-106); MAGNESIUM 1.6 mg/dL (1.8-2.4)
[2022-11-26 07:08] LABS: CREATININE 0.4 mg/dL (0.55-1.3)
[2022-11-26 07:09] LABS: SGOT/AST 30 U/L (15-37); SGPT/ALT 16 U/L (13-61)
[2022-11-26 07:10] LABS: BILIRUBIN,TOTAL 0.5 mg/dL (0.2-1); TOT PROT 5.2 g/dl (6.4-8.2)
[2022-11-26 07:11] LABS: ALK PHOS 92 U/L (45-117)
[2022-11-26 07:12] LABS: ANION GAP 5 MMOL/L (8-16)
[2022-11-26] MEDS ORDERED: MAGNESIUM 2GM/50ML STERILE WATER IVPB IVPB ONE (08:00)
[2022-11-26] MEDS: ACETYLCYSTEINE 20% 200MG/ML 4 ML VIAL *FOR ORAL / INH USE ONLY NEB SCH ×2 (08:17→20:05)
[2022-11-26] MEDS: ALBUTEROL SO4 0.083% IH SOL 2.5 MG/3 ML VIAL.NEB. NEB PRN (08:18)
[2022-11-26 08:22] LABS: HEMATOCRIT 19.8 % (32.4-45.2); MCH 30.7 pg (25.7-33.7); MCHC 33.7 g/dl (32.0-36.0); MEAN CELL VOLUME 90.9 fl (80-96); MEAN PLT VOLUME 8.5 fl (7.5-11.1); PLATELET COUNT 344 10^3/uL (134-434); RBC 2.18 M/mm3 (3.60-5.2); RDW 16.2 % (11.6-15.6); WHITE BLOOD COUNT 11.9 K/mm3 (4.0-10.0)
[2022-11-26 08:37] LABS: HEMOGLOBIN 6.7 GM/dL (10.7-15.3)
[2022-11-26] MEDS ORDERED: ACETAMINOPHEN 1000 MG/100 ML BAG IVPB PRN ×2 (08:57→11:32)
[2022-11-26] MEDS ORDERED: oxyCODONE HCL 5 MG TABLET PO PRN (09:23)
[2022-11-26] MEDS: AMINO ACIDS 4.25%/D5W 1,000 ML IV SCH (09:51)
[2022-11-26] MEDS ORDERED: POTASSIUM CHLORIDE TABS 20 MEQ TABLET.ER (FP) PO SCH (10:00)
[2022-11-26] MEDS: POTASSIUM CHLORIDE TABS 20 MEQ TABLET.ER (FP) PO SCH (10:08)
[2022-11-26] MEDS: PANTOPRAZOLE SODIUM 40 MG VIAL IVPUSH SCH ×2 (10:08→21:10)
[2022-11-26] MEDS: NAPH,MB-DB/K PH,MBDB POWDER PACKET PO SCH ×2 (10:08→21:10)
[2022-11-26] MEDS: NICOTINE 21 MG/24 HOURS TOPICAL PATCH TD SCH (10:08)
[2022-11-26] MEDS: morphine SULFATE 4 MG/ML VIAL IVPUSH SCH ×3 (10:11→15:23)
[2022-11-26 10:19] LABS: ANISOCYTOSIS 0; HELMET CELLS 0; HOWELL-JOLLY BODIES 0; MACROCYTOSIS 0; OVALOCYTE 0; ROULEAU 0; SICKELED CELLS 0; TARGET CELLS 0; TEAR DROP CELLS 0; TOXIC GRANULATION 0
[2022-11-26] MEDS: BUDESONIDE/FORMETEROL FUMARATE 160/4.5 mcg INHALER IH SCH ×2 (10:34→22:13)
[2022-11-26] MEDS: oxyCODONE HCL 5 MG TABLET PO PRN ×2 (10:40→18:33)
[2022-11-26] MEDS ORDERED: FUROSEMIDE 40 MG/4 ML INJECTABLE VIAL IVPUSH ONE ×2 (12:00→19:30)
[2022-11-26] MEDS: HYDROmorphone HCl 2 MG/ML VIAL IVPUSH SCH ×3 (17:28→22:03)
[2022-11-26] MEDS: ACETAMINOPHEN 1000 MG/100 ML BAG IVPB SCH (17:37)
[2022-11-27] MEDS: ACETAMINOPHEN 1000 MG/100 ML BAG IVPB SCH ×3 (00:32→17:05)
[2022-11-27] MEDS: HYDROmorphone HCl 2 MG/ML VIAL IVPUSH SCH ×3 (02:00→08:59)
[2022-11-27] MEDS: PIPERACILLIN/TAZOB 4.5 GM 4.5 GM in DEXTROSE 5%-WATER 100 ML IVPB SCH ×3 (02:33→17:55)
[2022-11-27] MEDS: HEPARIN NA (PORCINE) 5,000 UNITS/ML 1ML VIAL SQ SCH ×3 (06:30→23:44)
[2022-11-27] MEDS: ACETYLCYSTEINE 20% 200MG/ML 4 ML VIAL *FOR ORAL / INH USE ONLY NEB SCH ×2 (07:30→20:04)
[2022-11-27] MEDS: ALBUTEROL SO4 0.083% IH SOL 2.5 MG/3 ML VIAL.NEB. NEB PRN ×2 (07:30→20:04)
[2022-11-27 07:39] LABS: BASO % 0.4 % (0-2.0); EOS % 0.8 % (0-4.5); HEMATOCRIT 23.7 % (32.4-45.2); HEMOGLOBIN 7.8 GM/dL (10.7-15.3); LYMPH % 5.7 % (8-40); MCH 29.6 pg (25.7-33.7); MCHC 32.8 g/dl (32.0-36.0); MEAN CELL VOLUME 90.1 fl (80-96); MEAN PLT VOLUME 8.7 fl (7.5-11.1); MONO % 2.3 % (3.8-10.2); NEUT % 90.8 % (42.8-82.8); PLATELET COUNT 352 10^3/uL (134-434); RBC 2.63 M/mm3 (3.60-5.2); RDW 15.7 % (11.6-15.6); WHITE BLOOD COUNT 11.5 K/mm3 (4.0-10.0)
[2022-11-27 08:16] LABS: ALBUMIN 1.4 g/dl (3.4-5.0); MAGNESIUM 2.1 mg/dL (1.8-2.4)
[2022-11-27 08:18] LABS: BLOOD UREA NITROGEN 5.8 mg/dL (7-18)
[2022-11-27 08:19] LABS: CREATININE 0.4 mg/dL (0.55-1.3); PHOSPHOROUS 2.7 mg/dL (2.5-4.9)
[2022-11-27 08:20] LABS: BILIRUBIN,TOTAL 0.5 mg/dL (0.2-1); TOT PROT 5.5 g/dl (6.4-8.2)
[2022-11-27] MEDS ORDERED: oxyCODONE HCL 5 MG TABLET PO PRN (08:44)
[2022-11-27] MEDS: NICOTINE 21 MG/24 HOURS TOPICAL PATCH TD SCH (09:13)
[2022-11-27] MEDS: PANTOPRAZOLE SODIUM 40 MG VIAL IVPUSH SCH ×2 (09:13→23:45)
[2022-11-27] MEDS: NAPH,MB-DB/K PH,MBDB POWDER PACKET PO SCH ×2 (09:14→23:44)
[2022-11-27] MEDS: POTASSIUM CHLORIDE TABS 20 MEQ TABLET.ER (FP) PO SCH (09:14)
[2022-11-27] MEDS: BUDESONIDE/FORMETEROL FUMARATE 160/4.5 mcg INHALER IH SCH (09:16)
[2022-11-27] MEDS ORDERED: HYDROmorphone HCl 2 MG/ML VIAL IVPUSH PRN (09:17)
[2022-11-27] MEDS ORDERED: MULTIVITAMINS (DAILY MVI) TABLET (FP) PO SCH (10:00)
[2022-11-27] MEDS: morphine SULFATE 4 MG/ML VIAL IVPUSH PRN ×2 (13:24→19:41)
[2022-11-27] MEDS: oxyCODONE HCL 5 MG TABLET PO PRN ×2 (17:04→23:51)
[2022-11-27] MEDS ORDERED: SENNOSIDES 8.6MG TABLET (FP) PO PRN (17:39)
[2022-11-27] MEDS ORDERED: ALBUTEROL SO4 HFA INHALER IH PRN (17:39)
[2022-11-27] MEDS ORDERED: TRIMETHOBENZAMIDE HCL 200MG/2ML INJ IM PRN (17:39)
[2022-11-28] MEDS: morphine SULFATE 4 MG/ML VIAL IVPUSH PRN ×2 (02:03→10:09)
[2022-11-28] MEDS: PIPERACILLIN/TAZOB 4.5 GM 4.5 GM in DEXTROSE 5%-WATER 100 ML IVPB SCH ×3 (02:06→17:43)
[2022-11-28] MEDS: BUDESONIDE/FORMETEROL FUMARATE 160/4.5 mcg INHALER IH SCH ×4 (06:36→23:00)
[2022-11-28] MEDS: ACETAMINOPHEN 1000 MG/100 ML BAG IVPB SCH ×3 (06:36→16:34)
[2022-11-28] MEDS: HEPARIN NA (PORCINE) 5,000 UNITS/ML 1ML VIAL SQ SCH ×3 (06:38→23:00)
[2022-11-28] MEDS: ALBUTEROL SO4 0.083% IH SOL 2.5 MG/3 ML VIAL.NEB. NEB PRN ×2 (08:20→19:58)
[2022-11-28] MEDS: ACETYLCYSTEINE 20% 200MG/ML 4 ML VIAL *FOR ORAL / INH USE ONLY NEB SCH ×2 (08:20→19:57)
[2022-11-28 08:52] LABS: BASO % 0.8 % (0-2.0); EOS % 0.5 % (0-4.5); HEMATOCRIT 24.5 % (32.4-45.2); HEMOGLOBIN 8.1 GM/dL (10.7-15.3); LYMPH % 6.6 % (8-40); MCH 29.5 pg (25.7-33.7); MCHC 33.1 g/dl (32.0-36.0); MEAN CELL VOLUME 89.3 fl (80-96); MEAN PLT VOLUME 8.5 fl (7.5-11.1); MONO % 3.3 % (3.8-10.2); NEUT % 88.8 % (42.8-82.8); PLATELET COUNT 473 10^3/uL (134-434); RBC 2.74 M/mm3 (3.60-5.2); WHITE BLOOD COUNT 14.6 K/mm3 (4.0-10.0)
[2022-11-28 09:27] LABS: BLOOD UREA NITROGEN 5.3 mg/dL (7-18)
[2022-11-28 09:28] LABS: ALBUMIN 1.4 g/dl (3.4-5.0); CALCIUM 7.8 mg/dL (8.5-10.1); MAGNESIUM 1.9 mg/dL (1.8-2.4)
[2022-11-28 09:30] LABS: PHOSPHOROUS 2.4 mg/dL (2.5-4.9)
[2022-11-28 09:31] LABS: CREATININE 0.5 mg/dL (0.55-1.3)
[2022-11-28 09:32] LABS: BILIRUBIN,TOTAL 0.5 mg/dL (0.2-1); TOT PROT 5.6 g/dl (6.4-8.2)
[2022-11-28] MEDS ORDERED: MULTIVITAMINS THER W-MINERALS COMBO TABLET (FP) PO SCH ×2 (10:00)
[2022-11-28] MEDS: NICOTINE 21 MG/24 HOURS TOPICAL PATCH TD SCH (10:06)
[2022-11-28] MEDS: NAPH,MB-DB/K PH,MBDB POWDER PACKET PO SCH ×2 (10:06→23:00)
[2022-11-28] MEDS: POTASSIUM CHLORIDE TABS 20 MEQ TABLET.ER (FP) PO SCH (10:08)
[2022-11-28] MEDS: MULTIVITAMINS (DAILY MVI) TABLET (FP) PO SCH (10:08)
[2022-11-28] MEDS: PANTOPRAZOLE SODIUM 40 MG VIAL IVPUSH SCH ×2 (10:09→23:00)
[2022-11-29] MEDS: morphine SULFATE 4 MG/ML VIAL IVPUSH PRN ×4 (00:17→19:04)
[2022-11-29] MEDS: ACETAMINOPHEN 1000 MG/100 ML BAG IVPB SCH ×3 (01:11→16:27)
[2022-11-29] MEDS: PIPERACILLIN/TAZOB 4.5 GM 4.5 GM in DEXTROSE 5%-WATER 100 ML IVPB SCH ×3 (03:00→17:43)
[2022-11-29] MEDS: HEPARIN NA (PORCINE) 5,000 UNITS/ML 1ML VIAL SQ SCH ×3 (06:22→21:32)
[2022-11-29] MEDS: ALBUTEROL SO4 0.083% IH SOL 2.5 MG/3 ML VIAL.NEB. NEB PRN ×2 (07:35→19:59)
[2022-11-29] MEDS: ACETYLCYSTEINE 20% 200MG/ML 4 ML VIAL *FOR ORAL / INH USE ONLY NEB SCH ×2 (07:35→19:59)
[2022-11-29 08:35] LABS: BASO % 0.3 % (0-2.0); EOS % 0.7 % (0-4.5); HEMATOCRIT 25.2 % (32.4-45.2); HEMOGLOBIN 8.3 GM/dL (10.7-15.3); LYMPH % 8.3 % (8-40); MCH 30.3 pg (25.7-33.7); MCHC 32.9 g/dl (32.0-36.0); MEAN PLT VOLUME 9.1 fl (7.5-11.1); MONO % 4.1 % (3.8-10.2); NEUT % 86.6 % (42.8-82.8); PLATELET COUNT 594 10^3/uL (134-434); RBC 2.74 M/mm3 (3.60-5.2); WHITE BLOOD COUNT 14.5 K/mm3 (4.0-10.0)
[2022-11-29 09:03] LABS: ALBUMIN 1.5 g/dl (3.4-5.0); BLOOD UREA NITROGEN 7.6 mg/dL (7-18); CALCIUM 7.8 mg/dL (8.5-10.1); MAGNESIUM 1.8 mg/dL (1.8-2.4)
[2022-11-29 09:06] LABS: CREATININE 0.5 mg/dL (0.55-1.3); PHOSPHOROUS 2.8 mg/dL (2.5-4.9)
[2022-11-29 09:08] LABS: BILIRUBIN,TOTAL 0.4 mg/dL (0.2-1); TOT PROT 5.9 g/dl (6.4-8.2)
[2022-11-29] MEDS: PANTOPRAZOLE SODIUM 40 MG VIAL IVPUSH SCH ×2 (10:10→21:33)
[2022-11-29] MEDS: NAPH,MB-DB/K PH,MBDB POWDER PACKET PO SCH ×2 (10:10→21:33)
[2022-11-29] MEDS: NICOTINE 21 MG/24 HOURS TOPICAL PATCH TD SCH (10:10)
[2022-11-29] MEDS: MULTIVITAMINS (DAILY MVI) TABLET (FP) PO SCH (10:10)
[2022-11-29] MEDS: POTASSIUM CHLORIDE TABS 20 MEQ TABLET.ER (FP) PO SCH (10:10)
[2022-11-29] MEDS: BUDESONIDE/FORMETEROL FUMARATE 160/4.5 mcg INHALER IH SCH ×2 (10:11→21:33)
[2022-11-29] MEDS: oxyCODONE HCL 5 MG TABLET PO PRN (21:33)
[2022-11-30] MEDS: ACETAMINOPHEN 1000 MG/100 ML BAG IVPB SCH ×3 (00:35→17:33)
[2022-11-30] MEDS: morphine SULFATE 4 MG/ML VIAL IVPUSH PRN ×4 (01:07→20:21)
[2022-11-30] MEDS: PIPERACILLIN/TAZOB 4.5 GM 4.5 GM in DEXTROSE 5%-WATER 100 ML IVPB SCH ×3 (02:30→17:34)
[2022-11-30] MEDS: HEPARIN NA (PORCINE) 5,000 UNITS/ML 1ML VIAL SQ SCH ×3 (06:58→22:06)
[2022-11-30] MEDS: ACETYLCYSTEINE 20% 200MG/ML 4 ML VIAL *FOR ORAL / INH USE ONLY NEB SCH ×2 (07:45→22:28)
[2022-11-30] MEDS: ALBUTEROL SO4 0.083% IH SOL 2.5 MG/3 ML VIAL.NEB. NEB PRN (07:45)
[2022-11-30 08:07] LABS: HEMATOCRIT 24.7 % (32.4-45.2); MCH 30.2 pg (25.7-33.7); MCHC 32.5 g/dl (32.0-36.0); MEAN CELL VOLUME 92.9 fl (80-96); MEAN PLT VOLUME 8.9 fl (7.5-11.1); PLATELET COUNT 660 10^3/uL (134-434); RBC 2.65 M/mm3 (3.60-5.2); RDW 16.5 % (11.6-15.6); WHITE BLOOD COUNT 14.3 K/mm3 (4.0-10.0)
[2022-11-30 08:36] LABS: CALCIUM 7.8 mg/dL (8.5-10.1)
[2022-11-30 08:37] LABS: ALBUMIN 1.6 g/dl (3.4-5.0); BLOOD UREA NITROGEN 5.8 mg/dL (7-18); MAGNESIUM 1.9 mg/dL (1.8-2.4)
[2022-11-30 08:39] LABS: CREATININE 0.5 mg/dL (0.55-1.3)
[2022-11-30 08:40] LABS: PHOSPHOROUS 2.4 mg/dL (2.5-4.9)
[2022-11-30 08:41] LABS: BILIRUBIN,TOTAL 0.5 mg/dL (0.2-1)
[2022-11-30 09:21] LABS: ANISOCYTOSIS 2+; MACROCYTOSIS 1+
[2022-11-30] MEDS: PANTOPRAZOLE SODIUM 40 MG VIAL IVPUSH SCH ×2 (10:05→22:12)
[2022-11-30] MEDS: NICOTINE 21 MG/24 HOURS TOPICAL PATCH TD SCH (10:05)
[2022-11-30] MEDS: POTASSIUM CHLORIDE TABS 20 MEQ TABLET.ER (FP) PO SCH (10:05)
[2022-11-30] MEDS: MULTIVITAMINS (DAILY MVI) TABLET (FP) PO SCH (14:27)
[2022-11-30] MEDS: BUDESONIDE/FORMETEROL FUMARATE 160/4.5 mcg INHALER IH SCH ×2 (14:28→22:12)
[2022-11-30] MEDS: NAPH,MB-DB/K PH,MBDB POWDER PACKET PO SCH ×2 (14:28→22:12)
[2022-12-01] MEDS: ACETAMINOPHEN 1000 MG/100 ML BAG IVPB SCH ×4 (00:43→17:03)
[2022-12-01] MEDS: morphine SULFATE 4 MG/ML VIAL IVPUSH PRN ×3 (02:56→21:17)
[2022-12-01] MEDS: PIPERACILLIN/TAZOB 4.5 GM 4.5 GM in DEXTROSE 5%-WATER 100 ML IVPB SCH ×3 (02:57→17:49)
[2022-12-01] MEDS: HEPARIN NA (PORCINE) 5,000 UNITS/ML 1ML VIAL SQ SCH ×3 (06:24→22:55)
[2022-12-01] MEDS: ACETYLCYSTEINE 20% 200MG/ML 4 ML VIAL *FOR ORAL / INH USE ONLY NEB SCH ×2 (07:45→20:50)
[2022-12-01 08:21] LABS: HEMATOCRIT 25.3 % (32.4-45.2); HEMOGLOBIN 8.1 GM/dL (10.7-15.3); MCH 29.5 pg (25.7-33.7); MEAN CELL VOLUME 92.2 fl (80-96); MEAN PLT VOLUME 8.1 fl (7.5-11.1); PLATELET COUNT 692 10^3/uL (134-434); RBC 2.75 M/mm3 (3.60-5.2); RDW 17.1 % (11.6-15.6); WHITE BLOOD COUNT 11.2 K/mm3 (4.0-10.0)
[2022-12-01 08:30] LABS: INR 1.14 (0.83-1.09); PROTHROMBIN TIME (PATIENT) 13.2 SEC (9.7-13.0)
[2022-12-01 09:01] LABS: ALBUMIN 1.6 g/dl (3.4-5.0); BLOOD UREA NITROGEN 5.3 mg/dL (7-18); CALCIUM 8.2 mg/dL (8.5-10.1)
[2022-12-01 09:04] LABS: CREATININE 0.5 mg/dL (0.55-1.3); PHOSPHOROUS 2.9 mg/dL (2.5-4.9)
[2022-12-01 09:05] LABS: TOT PROT 5.9 g/dl (6.4-8.2)
[2022-12-01 09:07] LABS: BILIRUBIN,TOTAL 0.2 mg/dL (0.2-1)
[2022-12-01] MEDS ORDERED: FENTANYL CITRATE/PF 50 MCG/ML VIAL ONE ×2 (09:41→11:35)
[2022-12-01] MEDS ORDERED: MIDAZOLAM HCL 2 MG/2 ML SINGLE DOSE VIAL ONE ×2 (09:41→11:35)
[2022-12-01] MEDS ORDERED: ALBUTEROL SO4 0.042% IH SOL 1.25 MG/3 ML VIAL.NEB NEB PRN (10:13)
[2022-12-01] MEDS ORDERED: MIDAZOLAM HCL 2 MG/2 ML SINGLE DOSE VIAL IVPUSH ONE ×4 (10:50→11:44)
[2022-12-01] MEDS ORDERED: MIDAZOLAM HCL 2 MG/2 ML SINGLE DOSE VIAL IVPUSH SCH (10:50)
[2022-12-01] MEDS ORDERED: FENTANYL CITRATE/PF 50 MCG/ML VIAL IVPUSH SCH (10:50)
[2022-12-01] MEDS ORDERED: FENTANYL CITRATE/PF 50 MCG/ML VIAL IVPUSH ONE ×2 (11:10→11:38)
[2022-12-01] MEDS: NICOTINE 21 MG/24 HOURS TOPICAL PATCH TD SCH (12:43)
[2022-12-01] MEDS: MULTIVITAMINS (DAILY MVI) TABLET (FP) PO SCH (12:44)
[2022-12-01] MEDS: NAPH,MB-DB/K PH,MBDB POWDER PACKET PO SCH ×2 (12:44→22:55)
[2022-12-01] MEDS: POTASSIUM CHLORIDE TABS 20 MEQ TABLET.ER (FP) PO SCH (12:44)
[2022-12-01] MEDS: PANTOPRAZOLE SODIUM 40 MG VIAL IVPUSH SCH ×2 (12:44→22:55)
[2022-12-01] MEDS: BUDESONIDE/FORMETEROL FUMARATE 160/4.5 mcg INHALER IH SCH (12:48)
[2022-12-02] MEDS: ACETAMINOPHEN 1000 MG/100 ML BAG IVPB SCH ×3 (00:33→16:06)
[2022-12-02] MEDS: PIPERACILLIN/TAZOB 4.5 GM 4.5 GM in DEXTROSE 5%-WATER 100 ML IVPB SCH ×3 (02:26→17:53)
[2022-12-02] MEDS: morphine SULFATE 4 MG/ML VIAL IVPUSH PRN ×4 (04:20→22:31)
[2022-12-02] MEDS: HEPARIN NA (PORCINE) 5,000 UNITS/ML 1ML VIAL SQ SCH ×3 (06:02→22:32)
[2022-12-02 07:54] LABS: HEMATOCRIT 25.8 % (32.4-45.2); HEMOGLOBIN 8.3 GM/dL (10.7-15.3); MCH 30.5 pg (25.7-33.7); MCHC 32.1 g/dl (32.0-36.0); MEAN CELL VOLUME 94.9 fl (80-96); MEAN PLT VOLUME 8.4 fl (7.5-11.1); PLATELET COUNT 824 10^3/uL (134-434); RBC 2.72 M/mm3 (3.60-5.2); WHITE BLOOD COUNT 11.4 K/mm3 (4.0-10.0)
[2022-12-02 08:16] LABS: ALBUMIN 1.6 g/dl (3.4-5.0); BLOOD UREA NITROGEN 5.3 mg/dL (7-18); CALCIUM 8.3 mg/dL (8.5-10.1); MAGNESIUM 1.9 mg/dL (1.8-2.4)
[2022-12-02 08:20] LABS: CREATININE 0.6 mg/dL (0.55-1.3); PHOSPHOROUS 3.3 mg/dL (2.5-4.9)
[2022-12-02 08:21] LABS: BILIRUBIN,TOTAL 0.3 mg/dL (0.2-1); TOT PROT 6.2 g/dl (6.4-8.2)
[2022-12-02] MEDS: ACETYLCYSTEINE 20% 200MG/ML 4 ML VIAL *FOR ORAL / INH USE ONLY NEB SCH (08:51)
[2022-12-02] MEDS: BUDESONIDE/FORMETEROL FUMARATE 160/4.5 mcg INHALER IH SCH ×3 (09:33→23:55)
[2022-12-02] MEDS: NICOTINE 21 MG/24 HOURS TOPICAL PATCH TD SCH (09:40)
[2022-12-02] MEDS: NAPH,MB-DB/K PH,MBDB POWDER PACKET PO SCH ×2 (09:40→22:32)
[2022-12-02] MEDS: POTASSIUM CHLORIDE TABS 20 MEQ TABLET.ER (FP) PO SCH (09:40)
[2022-12-02] MEDS: PANTOPRAZOLE SODIUM 40 MG VIAL IVPUSH SCH ×2 (09:40→22:31)
[2022-12-02] MEDS: MULTIVITAMINS (DAILY MVI) TABLET (FP) PO SCH (09:41)
[2022-12-02] MEDS: oxyCODONE HCL 5 MG TABLET PO PRN (20:05)
[2022-12-03] MEDS: ACETAMINOPHEN 1000 MG/100 ML BAG IVPB SCH ×3 (00:59→16:56)
[2022-12-03] MEDS: PIPERACILLIN/TAZOB 4.5 GM 4.5 GM in DEXTROSE 5%-WATER 100 ML IVPB SCH ×3 (01:49→18:27)
[2022-12-03] MEDS: HEPARIN NA (PORCINE) 5,000 UNITS/ML 1ML VIAL SQ SCH ×3 (06:39→21:52)
[2022-12-03] MEDS: morphine SULFATE 4 MG/ML VIAL IVPUSH PRN ×3 (06:41→18:27)
[2022-12-03 07:38] LABS: CALCIUM 8.4 mg/dL (8.5-10.1)
[2022-12-03 07:39] LABS: ALBUMIN 1.7 g/dl (3.4-5.0); BLOOD UREA NITROGEN 5.5 mg/dL (7-18); MAGNESIUM 1.8 mg/dL (1.8-2.4)
[2022-12-03 07:41] LABS: CREATININE 0.6 mg/dL (0.55-1.3)
[2022-12-03 07:42] LABS: PHOSPHOROUS 3.5 mg/dL (2.5-4.9)
[2022-12-03 07:43] LABS: BILIRUBIN,TOTAL 0.3 mg/dL (0.2-1); TOT PROT 6.3 g/dl (6.4-8.2)
[2022-12-03 07:54] LABS: HEMOGLOBIN 8.8 GM/dL (10.7-15.3); MCH 30.6 pg (25.7-33.7); MCHC 32.4 g/dl (32.0-36.0); MEAN CELL VOLUME 94.3 fl (80-96); MEAN PLT VOLUME 8.4 fl (7.5-11.1); PLATELET COUNT 859 10^3/uL (134-434); RBC 2.86 M/mm3 (3.60-5.2); RDW 17.5 % (11.6-15.6); WHITE BLOOD COUNT 9.5 K/mm3 (4.0-10.0)
[2022-12-03] MEDS: NAPH,MB-DB/K PH,MBDB POWDER PACKET PO SCH ×2 (10:46→21:32)
[2022-12-03] MEDS: POTASSIUM CHLORIDE TABS 20 MEQ TABLET.ER (FP) PO SCH (10:46)
[2022-12-03] MEDS: MULTIVITAMINS (DAILY MVI) TABLET (FP) PO SCH (10:46)
[2022-12-03] MEDS: oxyCODONE HCL 5 MG TABLET PO PRN ×2 (10:47→21:32)
[2022-12-03] MEDS: NICOTINE 21 MG/24 HOURS TOPICAL PATCH TD SCH (10:47)
[2022-12-03] MEDS: PANTOPRAZOLE SODIUM 40 MG VIAL IVPUSH SCH ×2 (11:20→21:32)
[2022-12-03] MEDS: BUDESONIDE/FORMETEROL FUMARATE 160/4.5 mcg INHALER IH SCH ×2 (11:20→21:35)
[2022-12-03] MEDS: SERTRALINE HCL 50 MG TABLET (FP) PO SCH (21:32)
[2022-12-03] MEDS ORDERED: QUEtiapine FUMARATE 200 MG TABLET PO SCH (22:00)
[2022-12-04] MEDS: ACETAMINOPHEN 1000 MG/100 ML BAG IVPB SCH ×4 (00:48→23:32)
[2022-12-04] MEDS: PIPERACILLIN/TAZOB 4.5 GM 4.5 GM in DEXTROSE 5%-WATER 100 ML IVPB SCH ×3 (02:02→17:59)
[2022-12-04] MEDS: morphine SULFATE 4 MG/ML VIAL IVPUSH PRN ×3 (03:36→17:50)
[2022-12-04] MEDS: HEPARIN NA (PORCINE) 5,000 UNITS/ML 1ML VIAL SQ SCH ×3 (06:42→23:11)
[2022-12-04 08:16] LABS: HEMATOCRIT 25.3 % (32.4-45.2); HEMOGLOBIN 8.4 GM/dL (10.7-15.3); MCH 30.8 pg (25.7-33.7); MCHC 33.1 g/dl (32.0-36.0); MEAN PLT VOLUME 8.1 fl (7.5-11.1); PLATELET COUNT 819 10^3/uL (134-434); RBC 2.72 M/mm3 (3.60-5.2); RDW 17.4 % (11.6-15.6); WHITE BLOOD COUNT 7.8 K/mm3 (4.0-10.0)
[2022-12-04 08:32] LABS: ALBUMIN 1.7 g/dl (3.4-5.0); CALCIUM 8.7 mg/dL (8.5-10.1)
[2022-12-04 08:33] LABS: BLOOD UREA NITROGEN 5.7 mg/dL (7-18); MAGNESIUM 1.9 mg/dL (1.8-2.4)
[2022-12-04 08:35] LABS: PHOSPHOROUS 3.2 mg/dL (2.5-4.9)
[2022-12-04 08:36] LABS: CREATININE 0.5 mg/dL (0.55-1.3)
[2022-12-04 08:37] LABS: BILIRUBIN,TOTAL 0.2 mg/dL (0.2-1); TOT PROT 6.3 g/dl (6.4-8.2)
[2022-12-04] MEDS: NICOTINE 21 MG/24 HOURS TOPICAL PATCH TD SCH (09:44)
[2022-12-04] MEDS: POTASSIUM CHLORIDE TABS 20 MEQ TABLET.ER (FP) PO SCH (09:44)
[2022-12-04] MEDS: NAPH,MB-DB/K PH,MBDB POWDER PACKET PO SCH ×2 (09:44→23:10)
[2022-12-04] MEDS: PANTOPRAZOLE SODIUM 40 MG VIAL IVPUSH SCH ×2 (09:44→23:10)
[2022-12-04] MEDS: MULTIVITAMINS (DAILY MVI) TABLET (FP) PO SCH (09:45)
[2022-12-04] MEDS ORDERED: FLUCONAZOLE 200 MG/NS 100 ML IVPB SCH (10:00)
[2022-12-04] MEDS: BUDESONIDE/FORMETEROL FUMARATE 160/4.5 mcg INHALER IH SCH ×2 (10:08→23:11)
[2022-12-04] MEDS: FLUCONAZOLE 200 MG/NS 100 ML IVPB SCH (11:54)
[2022-12-04] MEDS: SERTRALINE HCL 50 MG TABLET (FP) PO SCH (23:11)
[2022-12-05] MEDS: PIPERACILLIN/TAZOB 4.5 GM 4.5 GM in DEXTROSE 5%-WATER 100 ML IVPB SCH ×3 (02:24→17:58)
[2022-12-05] MEDS: morphine SULFATE 4 MG/ML VIAL IVPUSH PRN ×3 (02:24→22:22)
[2022-12-05] MEDS: HEPARIN NA (PORCINE) 5,000 UNITS/ML 1ML VIAL SQ SCH ×3 (07:11→22:21)
[2022-12-05] MEDS: POTASSIUM CHLORIDE TABS 20 MEQ TABLET.ER (FP) PO SCH (09:17)
[2022-12-05] MEDS: PANTOPRAZOLE SODIUM 40 MG VIAL IVPUSH SCH ×2 (09:17→22:21)
[2022-12-05] MEDS: NAPH,MB-DB/K PH,MBDB POWDER PACKET PO SCH ×2 (09:18→22:21)
[2022-12-05] MEDS: NICOTINE 21 MG/24 HOURS TOPICAL PATCH TD SCH (09:18)
[2022-12-05] MEDS: MULTIVITAMINS (DAILY MVI) TABLET (FP) PO SCH (09:18)
[2022-12-05] MEDS: ACETAMINOPHEN 1000 MG/100 ML BAG IVPB SCH ×2 (09:19→16:50)
[2022-12-05] MEDS: BUDESONIDE/FORMETEROL FUMARATE 160/4.5 mcg INHALER IH SCH ×2 (09:32→22:22)
[2022-12-05] MEDS: FLUCONAZOLE 200 MG/NS 100 ML IVPB SCH (12:23)
[2022-12-05 14:34] LABS: HEMATOCRIT 27.3 % (32.4-45.2); HEMOGLOBIN 8.8 GM/dL (10.7-15.3); MCH 30.2 pg (25.7-33.7); MCHC 32.4 g/dl (32.0-36.0); MEAN CELL VOLUME 93.2 fl (80-96); MEAN PLT VOLUME 7.9 fl (7.5-11.1); PLATELET COUNT 910 10^3/uL (134-434); RBC 2.93 M/mm3 (3.60-5.2); WHITE BLOOD COUNT 6.9 K/mm3 (4.0-10.0)
[2022-12-05 14:55] LABS: CALCIUM 8.8 mg/dL (8.5-10.1)
[2022-12-05 14:56] LABS: ALBUMIN 1.9 g/dl (3.4-5.0); BLOOD UREA NITROGEN 5.8 mg/dL (7-18)
[2022-12-05 14:59] LABS: CREATININE 0.5 mg/dL (0.55-1.3)
[2022-12-05 15:00] LABS: TOT PROT 6.8 g/dl (6.4-8.2)
[2022-12-05 15:01] LABS: BILIRUBIN,TOTAL 0.2 mg/dL (0.2-1)
[2022-12-05] MEDS: SERTRALINE HCL 50 MG TABLET (FP) PO SCH (22:22)
[2022-12-06] MEDS: ACETAMINOPHEN 1000 MG/100 ML BAG IVPB SCH ×4 (00:13→23:35)
[2022-12-06] MEDS: PIPERACILLIN/TAZOB 4.5 GM 4.5 GM in DEXTROSE 5%-WATER 100 ML IVPB SCH ×3 (01:06→18:18)
[2022-12-06] MEDS: HEPARIN NA (PORCINE) 5,000 UNITS/ML 1ML VIAL SQ SCH ×3 (05:49→22:51)
[2022-12-06] MEDS: morphine SULFATE 4 MG/ML VIAL IVPUSH PRN ×3 (05:50→18:18)
[2022-12-06 08:44] LABS: HEMATOCRIT 26.9 % (32.4-45.2); HEMOGLOBIN 8.7 GM/dL (10.7-15.3); MCH 30.3 pg (25.7-33.7); MCHC 32.5 g/dl (32.0-36.0); MEAN CELL VOLUME 93.4 fl (80-96); MEAN PLT VOLUME 8.2 fl (7.5-11.1); PLATELET COUNT 836 10^3/uL (134-434); RBC 2.88 M/mm3 (3.60-5.2); WHITE BLOOD COUNT 5.6 K/mm3 (4.0-10.0)
[2022-12-06] MEDS: oxyCODONE HCL 5 MG TABLET PO PRN ×2 (08:44→14:18)
[2022-12-06 08:54] LABS: ALBUMIN 1.9 g/dl (3.4-5.0)
[2022-12-06 08:58] LABS: BLOOD UREA NITROGEN 5.4 mg/dL (7-18)
[2022-12-06 08:59] LABS: BILIRUBIN,TOTAL 0.4 mg/dL (0.2-1); CREATININE 0.6 mg/dL (0.55-1.3); TOT PROT 6.8 g/dl (6.4-8.2)
[2022-12-06] MEDS: POTASSIUM CHLORIDE TABS 20 MEQ TABLET.ER (FP) PO SCH (09:05)
[2022-12-06] MEDS: PANTOPRAZOLE SODIUM 40 MG VIAL IVPUSH SCH ×2 (09:05→22:51)
[2022-12-06] MEDS: NAPH,MB-DB/K PH,MBDB POWDER PACKET PO SCH ×2 (09:06→22:51)
[2022-12-06] MEDS: NICOTINE 21 MG/24 HOURS TOPICAL PATCH TD SCH (09:06)
[2022-12-06] MEDS: BUDESONIDE/FORMETEROL FUMARATE 160/4.5 mcg INHALER IH SCH ×2 (09:06→22:52)
[2022-12-06] MEDS: MULTIVITAMINS (DAILY MVI) TABLET (FP) PO SCH (09:06)
[2022-12-06] MEDS: FLUCONAZOLE 200 MG/NS 100 ML IVPB SCH (12:16)
[2022-12-06] MEDS: SERTRALINE HCL 50 MG TABLET (FP) PO SCH (22:51)
[2022-12-07] MEDS: PIPERACILLIN/TAZOB 4.5 GM 4.5 GM in DEXTROSE 5%-WATER 100 ML IVPB SCH ×3 (02:48→18:21)
[2022-12-07] MEDS: morphine SULFATE 4 MG/ML VIAL IVPUSH PRN ×4 (04:29→23:16)
[2022-12-07] MEDS: HEPARIN NA (PORCINE) 5,000 UNITS/ML 1ML VIAL SQ SCH ×3 (05:34→21:45)
[2022-12-07 07:49] LABS: HEMATOCRIT 27.7 % (32.4-45.2); HEMOGLOBIN 8.9 GM/dL (10.7-15.3); MCH 30.4 pg (25.7-33.7); MCHC 32.2 g/dl (32.0-36.0); MEAN CELL VOLUME 94.3 fl (80-96); MEAN PLT VOLUME 7.8 fl (7.5-11.1); PLATELET COUNT 842 10^3/uL (134-434); RBC 2.94 M/mm3 (3.60-5.2); RDW 17.7 % (11.6-15.6); WHITE BLOOD COUNT 5.2 K/mm3 (4.0-10.0)
[2022-12-07 07:58] LABS: MAGNESIUM 1.8 mg/dL (1.8-2.4)
[2022-12-07] MEDS: ACETAMINOPHEN 1000 MG/100 ML BAG IVPB SCH ×2 (07:59→16:45)
[2022-12-07 08:01] LABS: PHOSPHOROUS 3.5 mg/dL (2.5-4.9)
[2022-12-07] MEDS: PANTOPRAZOLE SODIUM 40 MG VIAL IVPUSH SCH ×2 (09:59→21:45)
[2022-12-07] MEDS: POTASSIUM CHLORIDE TABS 20 MEQ TABLET.ER (FP) PO SCH (11:17)
[2022-12-07] MEDS: BUDESONIDE/FORMETEROL FUMARATE 160/4.5 mcg INHALER IH SCH ×2 (11:18→21:45)
[2022-12-07] MEDS: MULTIVITAMINS (DAILY MVI) TABLET (FP) PO SCH (11:18)
[2022-12-07] MEDS: NAPH,MB-DB/K PH,MBDB POWDER PACKET PO SCH ×2 (11:18→21:45)
[2022-12-07] MEDS: NICOTINE 21 MG/24 HOURS TOPICAL PATCH TD SCH (11:18)
[2022-12-07] MEDS: FLUCONAZOLE 200 MG/NS 100 ML IVPB SCH (12:12)
[2022-12-07 12:46] LABS: CALCIUM 9.4 mg/dL (8.5-10.1)
[2022-12-07 12:48] LABS: BLOOD UREA NITROGEN 5.6 mg/dL (7-18)
[2022-12-07 12:50] LABS: CREATININE 0.6 mg/dL (0.55-1.3)
[2022-12-07 12:51] LABS: BILIRUBIN,TOTAL 0.2 mg/dL (0.2-1); TOT PROT 6.9 g/dl (6.4-8.2)
[2022-12-07] MEDS: SERTRALINE HCL 50 MG TABLET (FP) PO SCH (21:45)
[2022-12-08] MEDS: ACETAMINOPHEN 1000 MG/100 ML BAG IVPB SCH ×3 (00:52→16:12)
[2022-12-08] MEDS: PIPERACILLIN/TAZOB 4.5 GM 4.5 GM in DEXTROSE 5%-WATER 100 ML IVPB SCH ×3 (02:24→17:33)
[2022-12-08] MEDS: HEPARIN NA (PORCINE) 5,000 UNITS/ML 1ML VIAL SQ SCH ×4 (05:25→22:07)
[2022-12-08] MEDS: morphine SULFATE 4 MG/ML VIAL IVPUSH PRN ×4 (05:26→23:44)
[2022-12-08 08:49] LABS: HEMATOCRIT 28.2 % (32.4-45.2); HEMOGLOBIN 9.4 GM/dL (10.7-15.3); MCH 31.4 pg (25.7-33.7); MCHC 33.2 g/dl (32.0-36.0); MEAN CELL VOLUME 94.6 fl (80-96); MEAN PLT VOLUME 8.2 fl (7.5-11.1); PLATELET COUNT 777 10^3/uL (134-434); RBC 2.98 M/mm3 (3.60-5.2); RDW 17.8 % (11.6-15.6); WHITE BLOOD COUNT 5.1 K/mm3 (4.0-10.0)
[2022-12-08 09:18] LABS: BLOOD UREA NITROGEN 5.5 mg/dL (7-18); CALCIUM 9.6 mg/dL (8.5-10.1); PHOSPHOROUS 3.7 mg/dL (2.5-4.9)
[2022-12-08 09:19] LABS: MAGNESIUM 1.8 mg/dL (1.8-2.4)
[2022-12-08 09:21] LABS: CREATININE 0.6 mg/dL (0.55-1.3)
[2022-12-08 09:22] LABS: BILIRUBIN,TOTAL 0.2 mg/dL (0.2-1); TOT PROT 6.9 g/dl (6.4-8.2)
[2022-12-08] MEDS: POTASSIUM CHLORIDE TABS 20 MEQ TABLET.ER (FP) PO SCH (10:53)
[2022-12-08] MEDS: NICOTINE 21 MG/24 HOURS TOPICAL PATCH TD SCH (10:53)
[2022-12-08] MEDS: PANTOPRAZOLE SODIUM 40 MG VIAL IVPUSH SCH ×2 (10:53→21:33)
[2022-12-08] MEDS: NAPH,MB-DB/K PH,MBDB POWDER PACKET PO SCH ×3 (10:53→22:07)
[2022-12-08] MEDS: MULTIVITAMINS (DAILY MVI) TABLET (FP) PO SCH (10:53)
[2022-12-08] MEDS: BUDESONIDE/FORMETEROL FUMARATE 160/4.5 mcg INHALER IH SCH ×2 (10:54→21:34)
[2022-12-08] MEDS: FLUCONAZOLE 200 MG/NS 100 ML IVPB SCH (12:18)
[2022-12-08] MEDS ORDERED: diphenhydrAMINE HCL 25 MG CAPSULE (FP) PO ONE (14:23)
[2022-12-08] MEDS: FLUCONAZOLE 100 MG TABLET (UD) PO SCH (15:58)
[2022-12-08] MEDS: SERTRALINE HCL 50 MG TABLET (FP) PO SCH (21:34)
[2022-12-09] MEDS: ACETAMINOPHEN 1000 MG/100 ML BAG IVPB SCH ×4 (00:47→23:32)
[2022-12-09] MEDS: PIPERACILLIN/TAZOB 4.5 GM 4.5 GM in DEXTROSE 5%-WATER 100 ML IVPB SCH ×3 (01:07→17:31)
[2022-12-09] MEDS: oxyCODONE HCL 5 MG TABLET PO PRN (02:38)
[2022-12-09] MEDS ORDERED: diphenhydrAMINE HCL 25 MG CAPSULE (FP) PO ONE (02:50)
[2022-12-09] MEDS: morphine SULFATE 4 MG/ML VIAL IVPUSH PRN ×3 (06:14→18:42)
[2022-12-09] MEDS: HEPARIN NA (PORCINE) 5,000 UNITS/ML 1ML VIAL SQ SCH ×2 (06:19→13:39)
[2022-12-09 08:12] LABS: BASO % 1.4 % (0-2.0); EOS % 3.4 % (0-4.5); HEMATOCRIT 29.2 % (32.4-45.2); HEMOGLOBIN 9.3 GM/dL (10.7-15.3); LYMPH % 24.3 % (8-40); MCH 29.8 pg (25.7-33.7); MCHC 31.7 g/dl (32.0-36.0); MEAN PLT VOLUME 7.6 fl (7.5-11.1); MONO % 12.5 % (3.8-10.2); NEUT % 58.4 % (42.8-82.8); PLATELET COUNT 738 10^3/uL (134-434); RBC 3.11 M/mm3 (3.60-5.2); RDW 18.3 % (11.6-15.6); WHITE BLOOD COUNT 5.3 K/mm3 (4.0-10.0)
[2022-12-09 08:58] LABS: ALBUMIN 2.1 g/dl (3.4-5.0); BLOOD UREA NITROGEN 6.4 mg/dL (7-18); CALCIUM 8.9 mg/dL (8.5-10.1); MAGNESIUM 1.8 mg/dL (1.8-2.4)
[2022-12-09 09:01] LABS: CREATININE 0.6 mg/dL (0.55-1.3); PHOSPHOROUS 3.3 mg/dL (2.5-4.9)
[2022-12-09 09:04] LABS: BILIRUBIN,TOTAL 0.2 mg/dL (0.2-1); TOT PROT 6.9 g/dl (6.4-8.2)
[2022-12-09] MEDS: MULTIVITAMINS (DAILY MVI) TABLET (FP) PO SCH (10:06)
[2022-12-09] MEDS: FLUCONAZOLE 100 MG TABLET (UD) PO SCH (10:06)
[2022-12-09] MEDS: POTASSIUM CHLORIDE TABS 20 MEQ TABLET.ER (FP) PO SCH (10:07)
[2022-12-09] MEDS: NICOTINE 21 MG/24 HOURS TOPICAL PATCH TD SCH (10:07)
[2022-12-09] MEDS: NAPH,MB-DB/K PH,MBDB POWDER PACKET PO SCH ×2 (10:11→22:18)
[2022-12-09] MEDS: PANTOPRAZOLE SODIUM 40 MG VIAL IVPUSH SCH ×2 (10:12→22:18)
[2022-12-09] MEDS: BUDESONIDE/FORMETEROL FUMARATE 160/4.5 mcg INHALER IH SCH ×2 (10:17→22:18)
[2022-12-09] MEDS: SERTRALINE HCL 50 MG TABLET (FP) PO SCH (22:18)
[2022-12-10] MEDS: PIPERACILLIN/TAZOB 4.5 GM 4.5 GM in DEXTROSE 5%-WATER 100 ML IVPB SCH ×3 (01:46→18:51)
[2022-12-10] MEDS: morphine SULFATE 4 MG/ML VIAL IVPUSH PRN ×3 (05:33→18:42)
[2022-12-10 08:15] LABS: HEMATOCRIT 28.5 % (32.4-45.2); HEMOGLOBIN 9.2 GM/dL (10.7-15.3); MCHC 32.4 g/dl (32.0-36.0); MEAN CELL VOLUME 95.5 fl (80-96); MEAN PLT VOLUME 7.7 fl (7.5-11.1); PLATELET COUNT 664 10^3/uL (134-434); RBC 2.99 M/mm3 (3.60-5.2); RDW 18.2 % (11.6-15.6); WHITE BLOOD COUNT 4.9 K/mm3 (4.0-10.0)
[2022-12-10 08:20] LABS: INR 1.1 (0.83-1.09); PROTHROMBIN TIME (PATIENT) 12.7 SEC (9.7-13.0)
[2022-12-10 08:54] LABS: ALBUMIN 2.1 g/dl (3.4-5.0); CALCIUM 9.2 mg/dL (8.5-10.1); MAGNESIUM 1.8 mg/dL (1.8-2.4)
[2022-12-10 08:55] LABS: BLOOD UREA NITROGEN 7.4 mg/dL (7-18)
[2022-12-10 08:57] LABS: PHOSPHOROUS 3.4 mg/dL (2.5-4.9)
[2022-12-10 08:58] LABS: CREATININE 0.6 mg/dL (0.55-1.3)
[2022-12-10 08:59] LABS: BILIRUBIN,TOTAL 0.2 mg/dL (0.2-1); TOT PROT 6.9 g/dl (6.4-8.2)
[2022-12-10] MEDS: oxyCODONE HCL 5 MG TABLET PO PRN ×2 (10:03→22:57)
[2022-12-10] MEDS: ACETAMINOPHEN 1000 MG/100 ML BAG IVPB SCH ×2 (10:04→17:27)
[2022-12-10] MEDS: PANTOPRAZOLE SODIUM 40 MG VIAL IVPUSH SCH ×2 (10:05→22:52)
[2022-12-10] MEDS: NAPH,MB-DB/K PH,MBDB POWDER PACKET PO SCH ×2 (10:06→23:26)
[2022-12-10] MEDS: NICOTINE 21 MG/24 HOURS TOPICAL PATCH TD SCH (10:06)
[2022-12-10] MEDS: FLUCONAZOLE 100 MG TABLET (UD) PO SCH (10:06)
[2022-12-10] MEDS: POTASSIUM CHLORIDE TABS 20 MEQ TABLET.ER (FP) PO SCH (10:06)
[2022-12-10] MEDS: MULTIVITAMINS (DAILY MVI) TABLET (FP) PO SCH (10:07)
[2022-12-10] MEDS: BUDESONIDE/FORMETEROL FUMARATE 160/4.5 mcg INHALER IH SCH ×2 (14:05→23:04)
[2022-12-10] MEDS ORDERED: PROPOFOL 20 ML ONE (15:07)
[2022-12-10] MEDS ORDERED: LIDOCAINE HCL/PF 2% SDV 5ML VIAL ONE (15:08)
[2022-12-10] MEDS ORDERED: DEXAMETHASONE SOD PHOSPHATE 4 MG/1 ML VIAL ONE (15:08)
[2022-12-10] MEDS ORDERED: ROCURONIUM BROMIDE 50 MG/5 ML SYRINGE ONE (15:08)
[2022-12-10] MEDS ORDERED: MIDAZOLAM HCL 2 MG/2 ML SINGLE DOSE VIAL ONE (15:08)
[2022-12-10] MEDS ORDERED: ONDANSETRON 4 MG/2 ML VIAL ONE (15:08)
[2022-12-10] MEDS ORDERED: KETAMINE HCL 500 MG/10 ML VIAL ONE (15:27)
[2022-12-10] MEDS ORDERED: SEVOFLURANE 250 ML BTL ONE (15:48)
[2022-12-10] MEDS ORDERED: SUGAMMADEX SODIUM 200 MG/2 ML VIAL ONE (16:16)
[2022-12-10] MEDS ORDERED: oxyCODONE HCL 5 MG TABLET PO PRN (16:36)
[2022-12-10] MEDS ORDERED: ONDANSETRON 4 MG/2 ML VIAL IVPUSH PRN ×2 (16:36→17:01)
[2022-12-10] MEDS ORDERED: LACTATED RINGERS SOLUTION 1,000 ML IV SCH (16:45)
[2022-12-10] MEDS ORDERED: ALBUTEROL SO4 0.042% IH SOL 1.25 MG/3 ML VIAL.NEB NEB PRN (17:01)
[2022-12-10] MEDS ORDERED: SENNOSIDES 8.6MG TABLET (FP) PO PRN (17:01)
[2022-12-10] MEDS ORDERED: ALBUTEROL SO4 HFA INHALER IH PRN (17:01)
[2022-12-10] MEDS ORDERED: TRIMETHOBENZAMIDE HCL 200MG/2ML INJ IM PRN (17:01)
[2022-12-10] MEDS ORDERED: ACETAMINOPHEN INJECTION 100 ML IVPB ONE (17:22)
[2022-12-10] MEDS: LACTATED RINGERS SOLUTION 1,000 ML IV SCH (17:27)
[2022-12-10] MEDS ORDERED: CASPOFUNGIN ACETATE 70 MG in SODIUM CHLORIDE 250 ML IVPB ONE (18:00)
[2022-12-10] MEDS: SERTRALINE HCL 50 MG TABLET (FP) PO SCH (22:52)
[2022-12-11] MEDS: morphine SULFATE 4 MG/ML VIAL IVPUSH PRN ×4 (00:09→14:20)
[2022-12-11] MEDS: ACETAMINOPHEN 1000 MG/100 ML BAG IVPB SCH ×3 (03:21→17:35)
[2022-12-11] MEDS: PIPERACILLIN/TAZOB 4.5 GM 4.5 GM in DEXTROSE 5%-WATER 100 ML IVPB SCH ×3 (05:32→18:20)
[2022-12-11 08:12] LABS: BASO % 0.7 % (0-2.0); HEMOGLOBIN 8.8 GM/dL (10.7-15.3); LYMPH % 16.1 % (8-40); MCH 32.3 pg (25.7-33.7); MCHC 33.7 g/dl (32.0-36.0); MEAN CELL VOLUME 95.9 fl (80-96); MEAN PLT VOLUME 7.9 fl (7.5-11.1); MONO % 8.1 % (3.8-10.2); NEUT % 75.1 % (42.8-82.8); PLATELET COUNT 564 10^3/uL (134-434); RBC 2.71 M/mm3 (3.60-5.2); RDW 18.4 % (11.6-15.6); WHITE BLOOD COUNT 5.7 K/mm3 (4.0-10.0)
[2022-12-11 08:29] LABS: BLOOD UREA NITROGEN 12.1 mg/dL (7-18); CALCIUM 8.9 mg/dL (8.5-10.1)
[2022-12-11 08:33] LABS: CREATININE 0.6 mg/dL (0.55-1.3)
[2022-12-11] MEDS: LACTATED RINGERS SOLUTION 1,000 ML IV SCH ×2 (08:53→09:00)
[2022-12-11] MEDS ORDERED: FLUCONAZOLE 100 MG TABLET (UD) PO SCH (10:00)
[2022-12-11] MEDS: POTASSIUM CHLORIDE TABS 20 MEQ TABLET.ER (FP) PO SCH (10:14)
[2022-12-11] MEDS: NICOTINE 21 MG/24 HOURS TOPICAL PATCH TD SCH (10:14)
[2022-12-11] MEDS: BUDESONIDE/FORMETEROL FUMARATE 160/4.5 mcg INHALER IH SCH ×2 (10:15→23:14)
[2022-12-11] MEDS: NAPH,MB-DB/K PH,MBDB POWDER PACKET PO SCH ×2 (10:15→23:13)
[2022-12-11] MEDS: MULTIVITAMINS (DAILY MVI) TABLET (FP) PO SCH (10:16)
[2022-12-11] MEDS: PANTOPRAZOLE SODIUM 40 MG VIAL IVPUSH SCH ×2 (12:51→22:16)
[2022-12-11] MEDS: HEPARIN NA (PORCINE) 5,000 UNITS/ML 1ML VIAL SQ SCH ×2 (14:20→22:16)
[2022-12-11] MEDS: CASPOFUNGIN ACETATE 50 MG in SODIUM CHLORIDE 250 ML IVPB SCH (19:04)
[2022-12-11] MEDS: SERTRALINE HCL 50 MG TABLET (FP) PO SCH (22:15)
[2022-12-11] MEDS: oxyCODONE HCL 5 MG TABLET PO PRN (22:45)
[2022-12-12] MEDS: ACETAMINOPHEN 1000 MG/100 ML BAG IVPB SCH ×2 (01:02→09:34)
[2022-12-12] MEDS: PIPERACILLIN/TAZOB 4.5 GM 4.5 GM in DEXTROSE 5%-WATER 100 ML IVPB SCH ×3 (02:10→17:32)
[2022-12-12] MEDS: HEPARIN NA (PORCINE) 5,000 UNITS/ML 1ML VIAL SQ SCH ×3 (06:24→21:38)
[2022-12-12] MEDS: NAPH,MB-DB/K PH,MBDB POWDER PACKET PO SCH ×3 (10:10→22:20)
[2022-12-12] MEDS: NICOTINE 21 MG/24 HOURS TOPICAL PATCH TD SCH (10:10)
[2022-12-12] MEDS: PANTOPRAZOLE SODIUM 40 MG VIAL IVPUSH SCH ×2 (10:10→21:38)
[2022-12-12] MEDS: POTASSIUM CHLORIDE TABS 20 MEQ TABLET.ER (FP) PO SCH (10:11)
[2022-12-12] MEDS: MULTIVITAMINS (DAILY MVI) TABLET (FP) PO SCH (10:11)
[2022-12-12] MEDS: BUDESONIDE/FORMETEROL FUMARATE 160/4.5 mcg INHALER IH SCH ×2 (10:56→21:43)
[2022-12-12] MEDS ORDERED: KETOROLAC TROMETHAMINE 30 MG/1 ML VIAL IVPUSH PRN (16:09)
[2022-12-12] MEDS ORDERED: oxyCODONE HCL 5 MG TABLET PO PRN (16:12)
[2022-12-12] MEDS: ACETAMINOPHEN 1000 MG/100 ML BAG IVPB PRN (16:48)
[2022-12-12] MEDS: VITAMINS A AND D TOPICAL OINTMENT 60 GM TUBE TP SCH (17:31)
[2022-12-12] MEDS: CASPOFUNGIN ACETATE 50 MG in SODIUM CHLORIDE 250 ML IVPB SCH (18:17)
[2022-12-12] MEDS: SERTRALINE HCL 50 MG TABLET (FP) PO SCH (21:38)
[2022-12-13] MEDS: VITAMINS A AND D TOPICAL OINTMENT 60 GM TUBE TP SCH ×4 (00:45→17:55)
[2022-12-13] MEDS: PIPERACILLIN/TAZOB 4.5 GM 4.5 GM in DEXTROSE 5%-WATER 100 ML IVPB SCH ×3 (02:41→17:14)
[2022-12-13] MEDS: ACETAMINOPHEN 1000 MG/100 ML BAG IVPB PRN ×3 (04:05→22:51)
[2022-12-13] MEDS: HEPARIN NA (PORCINE) 5,000 UNITS/ML 1ML VIAL SQ SCH ×4 (06:18→22:25)
[2022-12-13] MEDS: NAPH,MB-DB/K PH,MBDB POWDER PACKET PO SCH ×2 (10:31→22:25)
[2022-12-13] MEDS: NICOTINE 21 MG/24 HOURS TOPICAL PATCH TD SCH (10:31)
[2022-12-13] MEDS: POTASSIUM CHLORIDE TABS 20 MEQ TABLET.ER (FP) PO SCH (10:31)
[2022-12-13] MEDS: MULTIVITAMINS (DAILY MVI) TABLET (FP) PO SCH (10:32)
[2022-12-13] MEDS: BUDESONIDE/FORMETEROL FUMARATE 160/4.5 mcg INHALER IH SCH ×2 (10:32→22:26)
[2022-12-13] MEDS: PANTOPRAZOLE SODIUM 40 MG VIAL IVPUSH SCH ×2 (10:32→22:25)
[2022-12-13 16:00] LABS: BASO % 0.8 % (0-2.0); EOS % 3.1 % (0-4.5); HEMATOCRIT 26.5 % (32.4-45.2); HEMOGLOBIN 8.8 GM/dL (10.7-15.3); LYMPH % 26.3 % (8-40); MCH 31.1 pg (25.7-33.7); MCHC 33.1 g/dl (32.0-36.0); MEAN PLT VOLUME 7.7 fl (7.5-11.1); NEUT % 58.8 % (42.8-82.8); PLATELET COUNT 424 10^3/uL (134-434); RBC 2.82 M/mm3 (3.60-5.2); RDW 18.4 % (11.6-15.6); WHITE BLOOD COUNT 5.4 K/mm3 (4.0-10.0)
[2022-12-13 16:28] LABS: ALBUMIN 2.1 g/dl (3.4-5.0); BLOOD UREA NITROGEN 7.8 mg/dL (7-18); CALCIUM 8.8 mg/dL (8.5-10.1)
[2022-12-13 16:31] LABS: CREATININE 0.5 mg/dL (0.55-1.3)
[2022-12-13 16:33] LABS: BILIRUBIN,TOTAL 0.3 mg/dL (0.2-1); TOT PROT 6.3 g/dl (6.4-8.2)
[2022-12-13] MEDS: CASPOFUNGIN ACETATE 50 MG in SODIUM CHLORIDE 250 ML IVPB SCH (18:01)
[2022-12-13] MEDS: SERTRALINE HCL 50 MG TABLET (FP) PO SCH (22:25)
[2022-12-14] MEDS: VITAMINS A AND D TOPICAL OINTMENT 60 GM TUBE TP SCH ×4 (00:51→18:40)
[2022-12-14] MEDS: PIPERACILLIN/TAZOB 4.5 GM 4.5 GM in DEXTROSE 5%-WATER 100 ML IVPB SCH ×2 (01:40→09:52)
[2022-12-14] MEDS: ACETAMINOPHEN 1000 MG/100 ML BAG IVPB PRN ×2 (06:58→16:59)
[2022-12-14] MEDS: HEPARIN NA (PORCINE) 5,000 UNITS/ML 1ML VIAL SQ SCH ×3 (06:58→22:40)
[2022-12-14 08:45] LABS: HEMOGLOBIN 8.9 GM/dL (10.7-15.3); RBC 2.85 M/mm3 (3.60-5.2); WHITE BLOOD COUNT 5.1 K/mm3 (4.0-10.0)
[2022-12-14 08:46] LABS: HEMATOCRIT 26.7 % (32.4-45.2); MCH 31.3 pg (25.7-33.7); MCHC 33.4 g/dl (32.0-36.0); MEAN CELL VOLUME 93.8 fl (80-96); MEAN PLT VOLUME 8.1 fl (7.5-11.1); PLATELET COUNT 415 10^3/uL (134-434)
[2022-12-14 08:47] LABS: BASO % 1.2 % (0-2.0); HEMATOCRIT 27.1 % (32.4-45.2); LYMPH % 25.7 % (8-40); MCH 31.6 pg (25.7-33.7); MCHC 33.4 g/dl (32.0-36.0); MEAN CELL VOLUME 94.6 fl (80-96); MEAN PLT VOLUME 8.1 fl (7.5-11.1); MONO % 12.2 % (3.8-10.2); NEUT % 55.9 % (42.8-82.8); PLATELET COUNT 412 10^3/uL (134-434); RBC 2.86 M/mm3 (3.60-5.2); RDW 18.2 % (11.6-15.6); WHITE BLOOD COUNT 5.2 K/mm3 (4.0-10.0)
[2022-12-14 08:51] LABS: INR 1.08 (0.83-1.09); PROTHROMBIN TIME (PATIENT) 12.5 SEC (9.7-13.0)
[2022-12-14 08:54] LABS: ACTIVATED PTT 34.4 SECONDS (25.2-36.5)
[2022-12-14 09:25] LABS: ALBUMIN 2.1 g/dl (3.4-5.0); BLOOD UREA NITROGEN 6.5 mg/dL (7-18); MAGNESIUM 1.6 mg/dL (1.8-2.4)
[2022-12-14 09:28] LABS: CALCIUM 8.6 mg/dL (8.5-10.1); CREATININE 0.5 mg/dL (0.55-1.3); PHOSPHOROUS 2.9 mg/dL (2.5-4.9)
[2022-12-14 09:29] LABS: TOT PROT 6.4 g/dl (6.4-8.2)
[2022-12-14] MEDS: NAPH,MB-DB/K PH,MBDB POWDER PACKET PO SCH ×3 (09:49→22:40)
[2022-12-14] MEDS: NICOTINE 21 MG/24 HOURS TOPICAL PATCH TD SCH (09:49)
[2022-12-14] MEDS: POTASSIUM CHLORIDE TABS 20 MEQ TABLET.ER (FP) PO SCH ×2 (09:49→10:09)
[2022-12-14] MEDS: BUDESONIDE/FORMETEROL FUMARATE 160/4.5 mcg INHALER IH SCH ×2 (09:50→22:41)
[2022-12-14] MEDS: MULTIVITAMINS (DAILY MVI) TABLET (FP) PO SCH (09:50)
[2022-12-14] MEDS: PANTOPRAZOLE SODIUM 40 MG VIAL IVPUSH SCH ×2 (09:50→22:40)
[2022-12-14] MEDS ORDERED: MAGNESIUM SULF 50% (8.12 MEQ/2 ML-1 GM VIAL) IVPB ONE (13:41)
[2022-12-14] MEDS: ERTAPENEM SODIUM 1 GM in SODIUM CHLORIDE 50 ML IVPB SCH (18:29)
[2022-12-14] MEDS: CASPOFUNGIN ACETATE 50 MG in SODIUM CHLORIDE 250 ML IVPB SCH (18:30)
[2022-12-14] MEDS: SERTRALINE HCL 50 MG TABLET (FP) PO SCH (22:39)
[2022-12-15] MEDS: VITAMINS A AND D TOPICAL OINTMENT 60 GM TUBE TP SCH ×4 (00:31→20:09)
[2022-12-15] MEDS: ACETAMINOPHEN 1000 MG/100 ML BAG IVPB PRN ×2 (06:43→16:36)
[2022-12-15] MEDS: HEPARIN NA (PORCINE) 5,000 UNITS/ML 1ML VIAL SQ SCH ×2 (06:44→13:06)
[2022-12-15 09:37] LABS: HEMATOCRIT 27.7 % (32.4-45.2); HEMOGLOBIN 9.1 GM/dL (10.7-15.3); MCH 31.4 pg (25.7-33.7); MCHC 32.8 g/dl (32.0-36.0); MEAN CELL VOLUME 95.6 fl (80-96); MEAN PLT VOLUME 8.2 fl (7.5-11.1)
[2022-12-15 09:41] LABS: WHITE BLOOD COUNT 6.5 K/mm3 (4.0-10.0)
[2022-12-15 09:42] LABS: PLATELET COUNT 383 10^3/uL (134-434)
[2022-12-15 09:59] LABS: ALBUMIN 2.2 g/dl (3.4-5.0); BLOOD UREA NITROGEN 8.5 mg/dL (7-18); CALCIUM 8.6 mg/dL (8.5-10.1); MAGNESIUM 1.7 mg/dL (1.8-2.4)
[2022-12-15 10:02] LABS: PHOSPHOROUS 2.8 mg/dL (2.5-4.9)
[2022-12-15 10:03] LABS: CREATININE 0.5 mg/dL (0.55-1.3)
[2022-12-15 10:04] LABS: BILIRUBIN,TOTAL 0.3 mg/dL (0.2-1); TOT PROT 6.4 g/dl (6.4-8.2)
[2022-12-15] MEDS: ERTAPENEM SODIUM 1 GM in SODIUM CHLORIDE 50 ML IVPB SCH (10:35)
[2022-12-15] MEDS: PANTOPRAZOLE SODIUM 40 MG VIAL IVPUSH SCH (10:36)
[2022-12-15] MEDS: NAPH,MB-DB/K PH,MBDB POWDER PACKET PO SCH (10:36)
[2022-12-15] MEDS: POTASSIUM CHLORIDE TABS 20 MEQ TABLET.ER (FP) PO SCH (10:36)
[2022-12-15] MEDS: NICOTINE 21 MG/24 HOURS TOPICAL PATCH TD SCH (10:36)
[2022-12-15] MEDS: BUDESONIDE/FORMETEROL FUMARATE 160/4.5 mcg INHALER IH SCH (10:37)
[2022-12-15] MEDS: MULTIVITAMINS (DAILY MVI) TABLET (FP) PO SCH (10:51)
[2022-12-15] MEDS ORDERED: MAGNESIUM 2GM/50ML STERILE WATER IVPB IVPB ONE (11:10)
[2022-12-15 11:39] VITALS: BP 133/78; PULSE 77
[2022-12-15 15:04] VITALS: RESP 20; TEMP 98
[2022-12-15] MEDS ORDERED: oxyCODONE HCL 5 MG TABLET PO PRN (18:01)
[2022-12-15] MEDS: CASPOFUNGIN ACETATE 50 MG in SODIUM CHLORIDE 250 ML IVPB SCH (20:10)
== END 2022-12-15 20:20 | disposition home health service (06) | DRG 329 ==
LOC: JER 17:58 → JERBED 11-17 03:22 → INTOOBSV 11-17 03:22 → UNDOADMOB 11-17 03:22 → JERBED 11-17 05:04 → J8W 11-17 08:14 → JICU 11-20 05:00 → OBSVTOIN 11-20 06:51 → J4S 11-24 10:13 → J7W 11-27 16:23
PROVIDERS: ADMIT Internal Medicine; ATTEND Internal Medicine
PROC: 0DB68ZX Excision of Stomach, Via Natural or Artificial Opening Endoscopic, Diagnostic (ICD-10-PCS; 2022-11-18)
PROC: 0DBA0ZZ Excision of Jejunum, Open Approach (ICD-10-PCS; principal; 2022-11-20)
PROC: 0DNW0ZZ Release Peritoneum, Open Approach (ICD-10-PCS; 2022-11-20)
PROC: 0W9G0ZZ Drainage of Peritoneal Cavity, Open Approach (ICD-10-PCS; 2022-11-20)
PROC: 0D1 Gastrointestinal System, Bypass (ICD-10-PCS; 2022-11-20)
PROC: 0DJ08ZZ Inspection of Upper Intestinal Tract, Via Natural or Artificial Opening Endoscopic (ICD-10-PCS; 2022-11-20)
PROC: 0DJ08ZZ Inspection of Upper Intestinal Tract, Via Natural or Artificial Opening Endoscopic (ICD-10-PCS; 2022-11-20)
PROC: 30233N1 Transfusion of Nonautologous Red Blood Cells into Peripheral Vein, Percutaneous Approach (ICD-10-PCS; 2022-11-26)
PROC: 0W9G30Z Drainage of Peritoneal Cavity with Drainage Device, Percutaneous Approach (ICD-10-PCS; 2022-12-01)
PROC: BW11YZZ Fluoroscopy of Abdomen and Pelvis using Other Contrast (ICD-10-PCS; 2022-12-08)
PROC: 0WPFX0Z Removal of Drainage Device from Abdominal Wall, External Approach (ICD-10-PCS; 2022-12-08)
PROC: 0W9F0ZX Drainage of Abdominal Wall, Open Approach, Diagnostic (ICD-10-PCS; 2022-12-10)
PROC: 0JB80ZZ Excision of Abdomen Subcutaneous Tissue and Fascia, Open Approach (ICD-10-PCS; 2022-12-10)
PROC: 2W13X6Z Compression of Abdominal Wall using Pressure Dressing (ICD-10-PCS; 2022-12-10)
PROC: 05HA33Z Insertion of Infusion Device into Left Brachial Vein, Percutaneous Approach (ICD-10-PCS; 2022-12-15)
PROC: B54NZZA Ultrasonography of Left Upper Extremity Veins, Guidance (ICD-10-PCS; 2022-12-15)
DX: K63.1 Perforation of intestine (nontraumatic) (principal); J18.9 Pneumonia, unspecified organism; K65.1 Peritoneal abscess; J80 Acute respiratory distress syndrome; K55.8 Other vascular disorders of intestine; K91.89 Other postprocedural complications and disorders of digestive system; J81.1 Chronic pulmonary edema; D62 Acute posthemorrhagic anemia; T81.31XA Disruption of external operation (surgical) wound, not elsewhere classified, initial encounter; N39.0 Urinary tract infection, site not specified; T81.41XA Infection following a procedure, superficial incisional surgical site, initial encounter; J98.11 Atelectasis; R18.8 Other ascites; K52.89 Other specified noninfective gastroenteritis and colitis; K28.9 Gastrojejunal ulcer, unspecified as acute or chronic, without hemorrhage or perforation; I10 Essential (primary) hypertension; K66.8 Other specified disorders of peritoneum; K21.9 Gastro-esophageal reflux disease without esophagitis; D64.9 Anemia, unspecified; R91.1 Solitary pulmonary nodule; M06.9 Rheumatoid arthritis, unspecified; R50.9 Fever, unspecified; K46.9 Unspecified abdominal hernia without obstruction or gangrene; N83.291 Other ovarian cyst, right side; M79.7 Fibromyalgia; T85.898A Other specified complication of other internal prosthetic devices, implants and grafts, initial encounter; F41.8 Other specified anxiety disorders; K59.00 Constipation, unspecified; E78.5 Hyperlipidemia, unspecified; G47.30 Sleep apnea, unspecified; J45.20 Mild intermittent asthma, uncomplicated; R10.12 Left upper quadrant pain; B95.2 Enterococcus as the cause of diseases classified elsewhere; R00.0 Tachycardia, unspecified; F17.210 Nicotine dependence, cigarettes, uncomplicated; G89.18 Other acute postprocedural pain; Y83.8 Other surgical procedures as the cause of abnormal reaction of the patient, or of later complication, without mention of misadventure at the time of the procedure; Z98.84 Bariatric surgery status
CPT/HCPCS: 0241U-QW; 10005; 20501; 36415; 36430; 36600; 49406; 71045-TC-FY; 71275-TC; 74176-TC; 74177-TC; 76080-TC-FY; 80048; 80053; 81003; 82803; 82962; 83051; 83605; 83690; 83735; 83880; 84100; 84132; 84703; 85025; 85027; 85610; 85730; 86140; 86850; 86900; 86901; 86922; 87040; 87045; 87046; 87070; 87075; 87077; 87081; 87086; 87102; 87106; 87116; 87186; 87205; 87206; 87209; 87210; 87899; 88300-TC; 88304-TC; 88305-TC; 88307-TC; 93005; 93010; 93970-TC; 94010; 94640; 94760; 97116-GP; 97162-GP; 99285-25; C1729; C9803-CS; G0378; G0480; J0637; J1644; P9058; Q9967; U0003; U0005

== ENCOUNTER 2022-12-16 14:57 | Observation (INO) | payer BC ==
[2022-12-16] MEDS ORDERED: ALBUTEROL SO4 HFA INHALER IH PRN (16:12)
[2022-12-16] MEDS ORDERED: oxyCODONE HCL 5 MG TABLET PO PRN (16:12)
[2022-12-16] MEDS ORDERED: DOCUSATE SODIUM 100 MG CAPSULE (FP) PO PRN (16:12)
[2022-12-16] MEDS ORDERED: ERTAPENEM SODIUM 1 GM VIAL IVPB SCH (16:15)
[2022-12-16] MEDS ORDERED: CASPOFUNGIN ACETATE 50 MG in SODIUM CHLORIDE 250 ML IVPB ONE (16:30)
[2022-12-16] MEDS ORDERED: ERTAPENEM SODIUM 1 GM VIAL ONE (16:33)
[2022-12-16] MEDS: ERTAPENEM SODIUM 1 GM in SODIUM CHLORIDE 50 ML IVPB SCH (16:45)
[2022-12-16 20:06] VITALS: BMI 21.6
[2022-12-16] MEDS ORDERED: diphenhydrAMINE HCL 25 MG CAPSULE (FP) PO ONE (21:12)
[2022-12-16] MEDS: PANTOPRAZOLE 40 MG TABLET PO SCH (21:52)
[2022-12-16] MEDS ORDERED: SERTRALINE HCL 50 MG TABLET (FP) PO SCH (22:00)
[2022-12-16] MEDS ORDERED: ZOLPIDEM TARTRATE 5 MG TABLET PO PRN (22:00)
[2022-12-16] MEDS: cloNIDine HCL 0.1 MG TABLET PO SCH (22:06)
[2022-12-16] MEDS: HEPARIN NA (PORCINE) 5,000 UNITS/ML 1ML VIAL SQ SCH (22:12)
[2022-12-16] MEDS ORDERED: ACETAMINOPHEN 1000 MG/100 ML BAG IVPB ONE (22:24)
[2022-12-16] MEDS: BUDESONIDE/FORMETEROL FUMARATE 160/4.5 mcg INHALER IH SCH (23:08)
[2022-12-16 23:34] VITALS: RESP 18
[2022-12-17] MEDS ORDERED: ROSUVASTATIN CA 20 MG TABLET PO SCH (10:00)
[2022-12-17] MEDS ORDERED: ACETAMINOPHEN 1000 MG/100 ML BAG IVPB PRN (10:04)
[2022-12-17] MEDS: PANTOPRAZOLE 40 MG TABLET PO SCH (10:54)
[2022-12-17] MEDS: cloNIDine HCL 0.1 MG TABLET PO SCH (10:54)
[2022-12-17] MEDS: ERTAPENEM SODIUM 1 GM in SODIUM CHLORIDE 50 ML IVPB SCH (10:54)
[2022-12-17] MEDS: HEPARIN NA (PORCINE) 5,000 UNITS/ML 1ML VIAL SQ SCH ×2 (10:55→11:08)
[2022-12-17] MEDS: BUDESONIDE/FORMETEROL FUMARATE 160/4.5 mcg INHALER IH SCH (11:25)
[2022-12-17 15:51] VITALS: BP 130/86; PULSE 102; TEMP 98.2
[2022-12-17] MEDS ORDERED: CASPOFUNGIN ACETATE 50 MG in SODIUM CHLORIDE 250 ML IVPB SCH ×2 (16:00→18:00)
[2022-12-17] MEDS: CASPOFUNGIN ACETATE 50 MG IVPB SCH (16:15)
== END 2022-12-17 17:05 | disposition left against medical advice (07) ==
LOC: JER 14:57 → JERBED 15:30 → INTOOBSV 15:30 → UNDOADMOB 15:30 → JERBED 16:07 → J8W 17:21
PROVIDERS: ADMIT Internal Medicine; ATTEND Nurse Practitioner Acute Care
PROC: 3E033NZ Introduction of Analgesics, Hypnotics, Sedatives into Peripheral Vein, Percutaneous Approach (ICD-10-PCS; principal; 2022-12-16)
PROC: 3E03329 Introduction of Other Anti-infective into Peripheral Vein, Percutaneous Approach (ICD-10-PCS; 2022-12-16)
DX: R10.9 Unspecified abdominal pain (principal); J45.909 Unspecified asthma, uncomplicated; K21.9 Gastro-esophageal reflux disease without esophagitis; K92.2 Gastrointestinal hemorrhage, unspecified; F41.8 Other specified anxiety disorders; M06.9 Rheumatoid arthritis, unspecified; I10 Essential (primary) hypertension; E78.5 Hyperlipidemia, unspecified; M79.7 Fibromyalgia; Z87.891 Personal history of nicotine dependence; Z88.8 Allergy status to other drugs, medicaments and biological substances; Z91.013 Allergy to seafood; F43.10 Post-traumatic stress disorder, unspecified
CPT/HCPCS: 0241U-QW; 99285-25; G0378; J0637; J1644

== ENCOUNTER → 2022-12-18 | Day surgery (SDC) | payer BC, OTHER | END | disposition home or self-care (01) | LOC: JRADIR 11:45 | PROVIDERS: ATTEND Emergency Medicine | PROC: 02HV33Z Insertion of Infusion Device into Superior Vena Cava, Percutaneous Approach (ICD-10-PCS; principal; 2022-12-18) | PROC: B548ZZA Ultrasonography of Superior Vena Cava, Guidance (ICD-10-PCS; 2022-12-18) | DX: K65.1 Peritoneal abscess (principal) | CPT/HCPCS: 36569 ==

== ENCOUNTER 2022-12-20 22:25 | Emergency (ER) | payer BC ==
[2022-12-20 22:36] VITALS: BP 126/80; PULSE 65; RESP 18; TEMP 97.8; BMI 21.7
[2022-12-20] MEDS ORDERED: LACTATED RINGERS SOLUTION 1,000 ML/1,000 ML INFUS.BAG IV STA (22:56)
== END 2022-12-20 23:33 | disposition left against medical advice (07) ==
LOC: JER 22:25
DX: R42 Dizziness and giddiness (principal); R53.83 Other fatigue
CPT/HCPCS: 99283-25

== ENCOUNTER 2022-12-22 17:54 | Observation (INO) | payer BC ==
[2022-12-22 18:21] VITALS: BP 100/60; PULSE 82; RESP 17; TEMP 97.4; BMI 20.5
[2022-12-22 19:42] LABS: BASO % 0.7 % (0-2.0); EOS % 4.5 % (0-4.5); HEMATOCRIT 31.8 % (32.4-45.2); HEMOGLOBIN 10.6 GM/dL (10.7-15.3); LYMPH % 24.2 % (8-40); MCH 31.6 pg (25.7-33.7); MCHC 33.4 g/dl (32.0-36.0); MEAN CELL VOLUME 94.8 fl (80-96); MEAN PLT VOLUME 8.2 fl (7.5-11.1); MONO % 7.7 % (3.8-10.2); NEUT % 62.9 % (42.8-82.8); PLATELET COUNT 355 10^3/uL (134-434); RBC 3.36 M/mm3 (3.60-5.2); RDW 17.8 % (11.6-15.6); WHITE BLOOD COUNT 6.8 K/mm3 (4.0-10.0)
[2022-12-22 19:54] LABS: INR 0.98 (0.83-1.09); PROTHROMBIN TIME (PATIENT) 11.4 SEC (9.7-13.0)
[2022-12-22 19:56] LABS: ACTIVATED PTT 37.2 SECONDS (25.2-36.5)
[2022-12-22 19:58] LABS: POTASSIUM 3.8 mmol/L (3.5-5.1)
[2022-12-22 20:00] LABS: CALCIUM 8.9 mg/dL (8.5-10.1)
[2022-12-22 20:01] LABS: BLOOD UREA NITROGEN 8.2 mg/dL (7-18); MAGNESIUM 1.7 mg/dL (1.8-2.4)
[2022-12-22 20:04] LABS: CREATININE 0.7 mg/dL (0.55-1.3); PHOSPHOROUS 2.9 mg/dL (2.5-4.9)
[2022-12-22 20:05] LABS: BILIRUBIN,TOTAL 0.2 mg/dL (0.2-1)
[2022-12-22 20:09] LABS: N-TERMINAL BNP 258.7 pg/ml (5-125)
[2022-12-22 20:11] LABS: ALBUMIN 3.1 g/dl (3.4-5.0); TOT PROT 8.4 g/dl (6.4-8.2)
[2022-12-22] MEDS ORDERED: MAGNESIUM SULF 50% (8.12 MEQ/2 ML-1 GM VIAL) IVPB ONE (20:16)
[2022-12-22] MEDS ORDERED: MAGNESIUM SULFATE IN WATER 2 GM/50 ML IVPB IVPB ONE (20:38)
[2022-12-22] MEDS ORDERED: amLODIPine BESYLATE 5 MG TABLET (FP) PO ONE (21:59)
== END 2022-12-22 23:45 | disposition left against medical advice (07) ==
LOC: JER 17:54 → JERBED 22:32
PROVIDERS: ADMIT Internal Medicine; ATTEND Internal Medicine
PROC: 3E033GC Introduction of Other Therapeutic Substance into Peripheral Vein, Percutaneous Approach (ICD-10-PCS; principal; 2022-12-22)
DX: R55 Syncope and collapse (principal); Z98.84 Bariatric surgery status; K56.609 Unspecified intestinal obstruction, unspecified as to partial versus complete obstruction; I10 Essential (primary) hypertension; M06.9 Rheumatoid arthritis, unspecified; K21.9 Gastro-esophageal reflux disease without esophagitis; Z91.013 Allergy to seafood; Z88.8 Allergy status to other drugs, medicaments and biological substances
CPT/HCPCS: 36415; 70450-TC; 71045-TC-FY; 80053; 82550; 83735; 83880; 84100; 84484; 84703; 85025; 85610; 85730; 86850; 86900; 86901; 87040; 93005; 93010; 96374; 99285-25; G0378

== ENCOUNTER 2022-12-24 22:42 | Emergency (ER) | payer BC ==
[2022-12-24 22:51] VITALS: BMI 23.3
[2022-12-24 23:08] VITALS: BP 96/62; PULSE 74; RESP 16; TEMP 98.2
[2022-12-25] MEDS ORDERED: ACETAMINOPHEN 1000 MG/100 ML BAG IVPB ONE (03:20)
[2022-12-25] MEDS ORDERED: ACETAMINOPHEN INJECTION 100 ML IVPB ONE (03:20)
== END 2022-12-25 03:39 | disposition home or self-care (01) ==
LOC: FER 22:42
PROC: 3E0333Z Introduction of Anti-inflammatory into Peripheral Vein, Percutaneous Approach (ICD-10-PCS; principal; 2022-12-25)
DX: R10.84 Generalized abdominal pain (principal)
CPT/HCPCS: 74176-TC; 99284-25

== ENCOUNTER 2022-12-26 12:24 | Emergency (ER) | payer BC ==
[2022-12-26 12:55] VITALS: BP 125/90; PULSE 103; RESP 20; TEMP 99.1; BMI 20.9
[2022-12-26] MEDS ORDERED: ONDANSETRON 4 MG/2 ML VIAL IVPUSH ONE (12:58)
[2022-12-26] MEDS ORDERED: ONDANSETRON 4 MG/2 ML VIAL ONE (13:00)
== END 2022-12-26 13:26 | disposition home or self-care (01) ==
LOC: FER 12:24
PROC: 3E033GC Introduction of Other Therapeutic Substance into Peripheral Vein, Percutaneous Approach (ICD-10-PCS; principal; 2022-12-26)
DX: R11.2 Nausea with vomiting, unspecified (principal)
CPT/HCPCS: 99284-25

== ENCOUNTER 2023-03-31 14:35 | Emergency (ER) | payer BC ==
[2023-03-31] MEDS ORDERED: ACETAMINOPHEN 1000 MG/100 ML BAG IVPB ONE (14:59)
[2023-03-31] MEDS ORDERED: FAMOTIDINE 20 MG/50 ML IVPB 20 MG/50 ML MG IVPB ONE ×2 (14:59→15:14)
[2023-03-31] MEDS ORDERED: ONDANSETRON 4 MG/2 ML VIAL IVPUSH ONE ×2 (14:59→18:29)
[2023-03-31 15:00] VITALS: RESP 18; TEMP 99.4; BMI 20.9
[2023-03-31] MEDS ORDERED: MAG HYDROX/AL HYDROX/SIMETH 30 ML UNIT-DOSE CUP PO ONE (15:00)
[2023-03-31] MEDS ORDERED: ONDANSETRON 4 MG/2 ML VIAL ONE ×2 (15:14→18:36)
[2023-03-31] MEDS ORDERED: ACETAMINOPHEN INJECTION 100 ML IVPB ONE (15:14)
[2023-03-31] MEDS ORDERED: MAG HYDROX/AL HYDROX/SIMETH 30 ML UNIT-DOSE CUP ONE (15:15)
[2023-03-31] MEDS ORDERED: SODIUM CHLORIDE 1,000 ML IV STA (15:21)
[2023-03-31 15:53] LABS: HEMOGLOBIN 11.9 G/dL (10.7-15.3); MCH 29.2 pg (25.7-33.7); MCHC 32.2 g/dl (32.0-36.0); MEAN CELL VOLUME 90.7 fl (80-96); MEAN PLT VOLUME 8.7 fl (7.5-11.1); PLATELET COUNT 242.5 10^3/uL (134-434); RBC 4.08 10^6/uL (3.60-5.2); RDW 18.8 % (11.6-15.6)
[2023-03-31 16:09] LABS: ALBUMIN 3.6 g/dl (3.4-5.0); BILIRUBIN,TOTAL 0.8 mg/dl (0.2-1); BLOOD UREA NITROGEN 11.6 mg/dl (7-18); CALCIUM 8.3 mg/dl (8.5-10.1); CREATININE 0.6 mg/dl (0.6-1.3); POTASSIUM 3.9 mmol/L (3.5-5.1); SGOT/AST 22.8 U/L (15-37); SGPT/ALT 18.4 U/L (7-52)
[2023-03-31 16:23] LABS: PLATELET ESTIMATE ADEQUATE
[2023-03-31 17:41] VITALS: BP 136/83; PULSE 82
== END 2023-03-31 18:48 | disposition home or self-care (01) ==
LOC: FER 14:35
PROC: 3E033GC Introduction of Other Therapeutic Substance into Peripheral Vein, Percutaneous Approach (ICD-10-PCS; principal; 2023-03-31)
PROC: 3E033NZ Introduction of Analgesics, Hypnotics, Sedatives into Peripheral Vein, Percutaneous Approach (ICD-10-PCS; 2023-03-31)
PROC: 3E033GC Introduction of Other Therapeutic Substance into Peripheral Vein, Percutaneous Approach (ICD-10-PCS; 2023-03-31)
PROC: 3E033GC Introduction of Other Therapeutic Substance into Peripheral Vein, Percutaneous Approach (ICD-10-PCS; 2023-03-31)
PROC: 3E0337Z Introduction of Electrolytic and Water Balance Substance into Peripheral Vein, Percutaneous Approach (ICD-10-PCS; 2023-03-31)
DX: R10.84 Generalized abdominal pain (principal); R07.9 Chest pain, unspecified; R11.10 Vomiting, unspecified; R00.0 Tachycardia, unspecified
CPT/HCPCS: 36415; 71045-TC-FY; 74018-TC-FY; 80053; 81003; 83690; 84484; 85027; 87086; 93005; 99285-25

== ENCOUNTER 2023-04-22 09:27 | Day surgery (SDC) | payer BC ==
[2023-04-12 16:15] VITALS: BMI 19.3
[2023-04-22] MEDS ORDERED: DEXAMETHASONE SOD PHOSPHATE/PF 10 MG/ML SDV ONE (13:21)
[2023-04-22] MEDS ORDERED: ROPIVACAINE HCL 0.5% 30ML VIAL ONE (13:21)
[2023-04-22] MEDS ORDERED: MIDAZOLAM HCL 2 MG/2 ML SINGLE DOSE VIAL ONE (17:00)
[2023-04-22] MEDS ORDERED: FENTANYL CITRATE/PF 50 MCG/ML VIAL ONE (17:00)
[2023-04-22] MEDS ORDERED: BUPIVACAINE HCL/PF 0.5% (5 MG/ML) 30 ML VIAL IJ ONE (17:01)
[2023-04-22] MEDS ORDERED: PROPOFOL 40 ML ONE (17:21)
[2023-04-22] MEDS ORDERED: SUCCINYLCHOLINE CHLORIDE 200 MG/10 ML SYRINGE ONE (17:21)
[2023-04-22] MEDS ORDERED: ONDANSETRON 4 MG/2 ML VIAL IVPUSH PRN (19:13)
[2023-04-22] MEDS ORDERED: PROMETHAZINE HCL 25 MG/1 ML VIAL IVPB PRN (19:13)
[2023-04-22] MEDS ORDERED: oxyCODONE HCL 5 MG TABLET PO PRN (19:13)
[2023-04-22] MEDS ORDERED: LACTATED RINGERS SOLUTION 1,000 ML IV SCH (19:15)
[2023-04-22 20:02] VITALS: TEMP 97.2
[2023-04-22 20:07] VITALS: BP 112/78; PULSE 82; RESP 19
== END 2023-04-22 20:07 | disposition home or self-care (01) ==
LOC: FASU 09:27
PROVIDERS: ATTEND Orthopaedic Surgery Sports Medicine
PROC: 0RNJ4ZZ Release Right Shoulder Joint, Percutaneous Endoscopic Approach (ICD-10-PCS; principal; 2023-04-22 17:55)
DX: M75.121 Complete rotator cuff tear or rupture of right shoulder, not specified as traumatic (principal); M75.41 Impingement syndrome of right shoulder; S43.431A Superior glenoid labrum lesion of right shoulder, initial encounter; X58.XXXA Exposure to other specified factors, initial encounter; Y93.9 Activity, unspecified; Y92.9 Unspecified place or not applicable
CPT/HCPCS: 29826; 29827; C1713; 94760

== ENCOUNTER 2023-06-03 16:50 | Emergency (ER) | payer BC ==
[2023-06-03] MEDS ORDERED: ONDANSETRON 4 MG/2 ML VIAL IVPB ONE (17:15)
[2023-06-03] MEDS ORDERED: ACETAMINOPHEN 1000 MG/100 ML BAG IVPB ONE (17:15)
[2023-06-03] MEDS ORDERED: SODIUM CHLORIDE 0.9% 500 ML INFUS.BAG IV ONE (17:16)
[2023-06-03] MEDS ORDERED: ONDANSETRON 4 MG/2 ML VIAL ONE (17:24)
[2023-06-03] MEDS ORDERED: ACETAMINOPHEN INJECTION 100 ML IVPB ONE (17:25)
[2023-06-03 18:01] LABS: HEMATOCRIT 33.8 % (32.4-45.2); HEMOGLOBIN 10.5 G/dL (10.7-15.3); MCH 28.3 pg (25.7-33.7); MCHC 31.2 g/dl (32.0-36.0); MEAN CELL VOLUME 90.6 fl (80-96); MEAN PLT VOLUME 8.1 fl (7.5-11.1); PLATELET COUNT 384.5 10^3/uL (134-434); RBC 3.73 10^6/uL (3.60-5.2); RDW 18.5 % (11.6-15.6); WHITE BLOOD COUNT 6.4 10^3/uL (4.0-10.8)
[2023-06-03 18:27] LABS: ALBUMIN 3.4 g/dl (3.4-5.0); BLOOD UREA NITROGEN 7.9 mg/dl (7-18); CREATININE 0.5 mg/dl (0.6-1.3); MAGNESIUM 1.9 mg/dL (1.8-2.4); PHOSPHOROUS 2.38 (2.5-4.9); POTASSIUM 3.9 mmol/L (3.5-5.1); SGOT/AST 11.5 U/L (15-37); SGPT/ALT 9.7 U/L (7-52); TOT PROT 6.6 g/dl (6.4-8.2)
[2023-06-03 18:32] VITALS: BP 148/62; PULSE 77; RESP 20; TEMP 98.2; BMI 22.1
[2023-06-03 18:43] LABS: PLATELET ESTIMATE ADEQUATE
[2023-06-03] MEDS ORDERED: CALCIUM GLUCONATE 10% - 1,000 MG/10 ML VIAL IVPB ONE (18:57)
[2023-06-03] MEDS ORDERED: CALCIUM GLUCONATE 10% - 1,000 MG/10 ML VIAL ONE (19:13)
[2023-06-03] MEDS ORDERED: FAMOTIDINE 20 MG/50 ML IVPB 20 MG/50 ML MG IVPB ONE ×2 (19:27→19:29)
[2023-06-03 19:30] LABS: BILIRUBIN,TOTAL 0.4 mg/dL (0.2-1)
[2023-06-03] MEDS ORDERED: morphine CARPU-JECT 2 MG/1 ML DISP.SYRIN IVPUSH ONE (20:01)
[2023-06-03] MEDS ORDERED: morphine SULFATE 4 MG/ML VIAL ONE (20:36)
== END 2023-06-03 21:30 | disposition home or self-care (01) ==
LOC: FER 16:50
PROC: 3E033GC Introduction of Other Therapeutic Substance into Peripheral Vein, Percutaneous Approach (ICD-10-PCS; principal; 2023-06-03)
PROC: 3E033NZ Introduction of Analgesics, Hypnotics, Sedatives into Peripheral Vein, Percutaneous Approach (ICD-10-PCS; 2023-06-03)
PROC: 3E033GC Introduction of Other Therapeutic Substance into Peripheral Vein, Percutaneous Approach (ICD-10-PCS; 2023-06-03)
PROC: 3E033GC Introduction of Other Therapeutic Substance into Peripheral Vein, Percutaneous Approach (ICD-10-PCS; 2023-06-03)
DX: R10.84 Generalized abdominal pain (principal); R11.2 Nausea with vomiting, unspecified
CPT/HCPCS: 36415; 74177-TC; 80053; 81003; 81025; 83690; 83735; 84100; 84484; 84703; 85027; 99285-25; Q9967

== ENCOUNTER 2023-07-01 15:49 | Emergency (ER) | payer SELFPAY ==
[2023-07-01 16:49] VITALS: BP 131/78; PULSE 99; RESP 18; TEMP 99.1; BMI 22.1
[2023-07-01] MEDS ORDERED: DEXAMETHASONE SOD PHOSPHATE 4 MG/1 ML VIAL IM ONE (17:27)
[2023-07-01] MEDS ORDERED: FLUCONAZOLE 150 MG TABLET PO ONE ×2 (17:27→17:34)
[2023-07-01] MEDS ORDERED: DEXAMETHASONE SOD PHOSPHATE 4 MG/1 ML VIAL ONE (17:34)
== END 2023-07-01 17:50 | disposition home or self-care (01) ==
LOC: FER 15:49
PROC: 3E023GC Introduction of Other Therapeutic Substance into Muscle, Percutaneous Approach (ICD-10-PCS; principal; 2023-07-01)
DX: M25.511 Pain in right shoulder (principal); R20.0 Anesthesia of skin; M54.10 Radiculopathy, site unspecified
CPT/HCPCS: 73030-TC-RT-FY; 99284-25